=== PATIENT | female | born 1960 | race Caucasian/White ===

== ENCOUNTER → 2017-09-03 10:07 | Outpatient (CLI) | payer OTHER, SELFPAY ==
[2017-09-03 10:54] LABS: Hematocrit 36.2 % (36-46); Hemoglobin 12.4 g/dL (12.0-16.0); Mean Corpuscular HGB Conc 34.3 % (30-36); Mean Corpuscular Hemoglobin 30.3 PG (26-34); Mean Corpuscular Volume 88.4 fL (80-100); Platelet Count 337 X10^3/uL (150-400); Red Blood Cell Count 4.09 X10^6/uL (4.0-5.2); Red Cell Distribution Width 12.5 % (11.6-14.8); White Blood Cell Count 5.2 X10^3/uL (4.5-11.0)
[2017-09-03 10:58] LABS: Alanine Aminotransferase 22 IU/L (9-52); Albumin 4.2 g/dL (3.5-5.0); Albumin Globulin Ratio 1.8 (1.0-2.8); Alkaline Phosphatase 47 U/L (38-126); Aspartate Aminotransferase 20 IU/L (14-36); BUN Creatinine Ratio 25.6 (6-22); Bilirubin Total 0.5 mg/dL (0.2-1.3); Blood Urea Nitrogen 23 mg/dL (7-17); Carbon Dioxide 32 mmol/L (22-32); Chloride 100 mmol/L (98-107); Estimated Glomerular Filt Rate > 60.0 mL/min (>60); Globulin 2.3 g/dL (1.7-4.1); Glucose 134 mg/dL (70-100); HEMOLYSIS < 15 (0-50); Potassium 4.3 mmol/L (3.4-5.1); Sodium 142 mmol/L (137-145); Total Protein 6.5 g/dL (6.3-8.2)
[2017-09-06 12:16] LABS: Tacrolimus 6.9 mcg/L (5.0-20.0)
[2017-09-07 12:48] LABS: Albumin 80 %; Protein/ Creatinine Ratio 1333 mg/g creat (21-161); Total Urine Protein 102 mg/dL (5-24); Urine Creatinine, Random 77 mg/dL (20-320)
== END ==
PROVIDERS: PCP Family Medicine; Visit Provider Student in an Organized Health Care Education/Training Program
DX: R80.9 Proteinuria, unspecified (principal); D50.0 Iron deficiency anemia secondary to blood loss (chronic); N05.9 Unspecified nephritic syndrome with unspecified morphologic changes; D70.9 Neutropenia, unspecified; D63.1 Anemia in chronic kidney disease
CPT/HCPCS: 36415; 80053; 80197; 84156; 84166; 85027

== ENCOUNTER 2017-09-05 16:45 | Outpatient (RCR) | payer OTHER, SELFPAY ==
--- NOTE | 2017-07-13 18:15 | PT.OIE ---
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) Provider Visit Care Team Role Provider Type Mac Cason MD Primary Care Provider Physician Specialty: Family Practice Address: [address] [place] [address], [id number] Email: [email or web address] Pilar Ashford MD Attending Provider Physician Specialty: Physical Medicine and Rehab Address: [address] [place] [address], [id number] Email: Physical Therapy Initial Evaluation PT-OP-A Visit Information Start: 07/13/17 17:43 Freq: Status: Active Protocol: Document 07/13/17 16:45 DCW (Rec: 07/13/17 18:15 DCW [id number]) Out-Patient Physical Therapy Visit Information Visit Information Visit Type Initial Evaluation Visit Start Time 16:45 Visit Stop Time 17:35 Total Visit Minutes 50 Visit Number 1 Number of PRISON CLASSIFICATION COUNSELOR Visits 0 Evaluation Information Evaluation Date 07/13/17 PT-OP-B Current Condition Start: 07/13/17 17:43 Freq: Status: Active Protocol: Document 07/13/17 16:45 DCW (Rec: 07/13/17 18:15 DCW [id number]) Current Condition History of Current Condition Onset Date Diagnosed with EDS 2014 Current Complaints Joint hypermobility, weakness History of Current Condition 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 She has chronic pain in nearly all of her joints, however pain is very point-specific to the joint, and she rarely experiences muscle pain. Pain severity depends entirely on the location, duration, and cause of her current pain. Pt reports her normal daily activity level is 7,000 steps (per her Fitbit). If she really pushes it, she'll get to 10,000, but if she gets up as high as 12,000 steps, she is down for the next three days. Pt previously has participated in water walking, which normally feels pretty good, but if she does any actual swimming, she generally feels worse. Pt notes that as she ages, she has noticed a decline in her overall strength, and was referred to skilled therapy to establish a program for cardio fitness and general condition. Treatment Goals Patient/Caregiver Goals I know there is not much we can do about it, but I want to build strength, as much as I can, safely. Current Functional Impairments (Reported) Functional Limitations- Recreation/ Limited to ~2 miles ambulation Hobbies Struggles with uphill biking ( mild grade) secondary to intense burning in her knees PT-OP-C Subjective Start: 07/13/17 17:43 Freq: Status: Active Protocol: Document 07/13/17 16:45 DCW (Rec: 07/13/17 18:15 DCW [id number]) OP-PT Pain Assessment Pain Assessment Grid Paper Pain Assessment Grid Completed Yes: 20 separate locations - see chart PT-OP-K Range of Motion Start: 07/13/17 17:43 Freq: Status: Active Protocol: Document 07/13/17 16:45 DCW (Rec: 07/13/17 18:15 DCW [id number]) Cervical Spine Range of Motion Cervical Spine Active Percentage Testing Position Sitting Rotation Left 50 Lateral Flexion Right 50 Comments All other ROM throughout body displays significant hypermobility PT-OP-M Strength Start: 07/13/17 17:43 Freq: Status: Active Protocol: Document 07/13/17 16:45 DCW (Rec: 07/13/17 18:15 DCW [id number]) Trunk Strength Trunk Manual Muscle Testing Core Stabilization 4/5, Able to hold double straight leg raise, minimal back arch, mild complaint of pain Shoulder Strength Shoulder Manual Muscle Testing Right Flexion 4 Good Extension 4 Good Abduction (C5) 4 Good External Rotation 4 Good Internal Rotation 4 Good Left Flexion 4 Good Extension 4 Good Abduction (C5) 4 Good External Rotation 4 Good Internal Rotation 4 Good Elbow/Forearm Strength Elbow and Forearm Manual Muscle Testing Right Flexion (C6) 4+ Good+ Extension (C7) 4+ Good+ Left Flexion (C6) 4+ Good+ Extension (C7) 4+ Good+ Hip Strength Hip Manual Muscle Testing Right Flexion (L2) 4+ Good+ Abduction 4+ Good+ Adduction 4+ Good+ External Rotation 4+ Good+ Internal Rotation 4+ Good+ Comments Double leg on Shuttle = 62#, mild knee pain Single leg on Shuttle = 37#, mild knee pain Left Flexion (L2) 4+ Good+ Abduction 4+ Good+ Adduction 4+ Good+ External Rotation 4+ Good+ Internal Rotation 4+ Good+ Comments Double leg on Shuttle = 62#, mild knee pain Single leg on Shuttle = 37#, moderate knee pain Knee Strength Knee Manual Muscle Testing Right Flexion (S2) 4+ Good+ Extension (L3) 4+ Good+ Left Flexion (S2) 4+ Good+ Extension (L3) 4+ Good+ PT-OP-T Assessment and Plan Start: 07/13/17 17:43 Freq: Status: Active Protocol: Document 07/13/17 16:45 DCW (Rec: 07/13/17 18:15 DCW [id number]) Physical Therapy Assessment Rehab Potential Rehabilitation Potential Fair Evaluation Complexity Number of Personal Factors/Comorbidities 3 or More Number of Body Systems Impaired 4 or More Clinical Presentation at Evaluation Unstable Impairments Impairments Activity Tolerance Balance Pain ROM Soft Tissue Mobility Strength Tone Goals Three Impairment Strength Short Term Goal (STG) Pt gross LE MMT to 5/5 STG Duration 08/03/17 Longterm Goal (LTG) Pt gross UE MMT to 5/5 LTG Duration 08/24/17 Two Impairment HEP Short Term Goal (STG) Pt to have an appropriate land -based HEP and perform it at least 80% of the recommended time STG Duration 08/03/17 Fish Packer Goal (LTG) Pt to have an appropriate aquatic-based HEP LTG Duration 08/24/17 One Impairment Activity Limitations Longterm Goal (LTG) Pt to report return to biking three miles with no impact on her the following day LTG Duration 08/24/17 Assessment Summary Assessment Pt presents with significant joint hypermobility. Pt should benefit from a combination of land and aquatic-based therapy focusing on improving activity tolerance, implementing a progressive strengthening program, and education on joint protection to limit hyperextension. Physical Therapy Plan Frequency and Duration Frequency of Treatment 2x/Week Duration of Treatment 10 weeks Plan of Care Start Date 07/13/17 Plan of Care End Date 09/21/17 Therapeutic Interventions Therapeutic Interventions Aquatic Therapy Balance Training Home Exercise Program Joint Mobilizations Manual Therapy Orthotic/Prosthetic Management Patient/Caregiver Education Self-Care/Home Management Soft Tissue Mobilization Taping Therapeutic Exercises Next Visit Focus/Plan Next Note Type Treatment Note Next Visit Plan Gentle strengthening, increased activity tolerance, joint protection Please Sign and Return: I have reviewed this Plan of Care and certify that the skilled therapy services above are required to meet the patient?s needs. Physician Signature Date Printed Name and Credentials Clinical Instructor Signature Printed Name and Credentials
--- NOTE | 2017-07-13 18:18 | PT.OPPOC ---
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) Provider Visit Care Team Role Provider Type Mac Cason MD Primary Care Provider Physician Specialty: Family Practice Address: [address] [place] [address], [phone] Email: [email or web address] Pilar Ashford MD Attending Provider Physician Specialty: Physical Medicine and Rehab Address: [address] [place] [address], [id number] Email: Plan Of Care PT-OP-T Assessment and Plan Start: 07/13/17 17:43 Freq: Status: Active Protocol: Document 07/13/17 16:45 DCW (Rec: 07/13/17 18:15 DCW [id number]) Physical Therapy Assessment Rehab Potential Rehabilitation Potential Fair Evaluation Complexity Number of Personal Factors/Comorbidities 3 or More Number of Body Systems Impaired 4 or More Clinical Presentation at Evaluation Unstable Impairments Impairments Activity Tolerance Balance Pain ROM Soft Tissue Mobility Strength Tone Goals Three Impairment Strength Short Term Goal (STG) Pt gross LE MMT to 5/5 STG Duration 08/03/17 Pipe Layer Helper Goal (LTG) Pt gross UE MMT to 5/5 LTG Duration 08/24/17 Two Impairment HEP Short Term Goal (STG) Pt to have an appropriate land -based HEP and perform it at least 80% of the recommended time STG Duration 08/03/17 Pipe Layer Helper Goal (LTG) Pt to have an appropriate aquatic-based HEP LTG Duration 08/24/17 One Impairment Activity Limitations Fdc Goal (LTG) Pt to report return to biking three miles with no impact on her the following day LTG Duration 08/24/17 Assessment Summary Assessment Pt presents with significant joint hypermobility. Pt should benefit from a combination of land and aquatic-based therapy focusing on improving activity tolerance, implementing a progressive strengthening program, and education on joint protection to limit hyperextension. Physical Therapy Plan Frequency and Duration Frequency of Treatment 2x/Week Duration of Treatment 10 weeks Plan of Care Start Date 07/13/17 Plan of Care End Date 09/21/17 Therapeutic Interventions Therapeutic Interventions Aquatic Therapy Balance Training Home Exercise Program Joint Mobilizations Manual Therapy Orthotic/Prosthetic Management Patient/Caregiver Education Self-Care/Home Management Soft Tissue Mobilization Taping Therapeutic Exercises Next Visit Focus/Plan Next Note Type Treatment Note Next Visit Plan Gentle strengthening, increased activity tolerance, joint protection Plan of Care Dates Plan of Care Start Date 07/13/17 Plan of Care End Date 09/21/17 Please Sign and Return: I have reviewed this Plan of Care and certify that the skilled therapy services above are required to meet the patient?s needs. Physician Signature Date Printed Name and Credentials Clinical Instructor Signature Printed Name and Credentials
--- NOTE | 2017-08-29 17:49 | PT.OTN ---
Current Diagnoses Catherine-Danlos syndrome (08/29/17) Physical Therapy Treatment Note PT-OP-A Visit Information Start: 07/13/17 17:43 Freq: Status: Active Protocol: Document 08/29/17 16:45 DCW (Rec: 08/29/17 17:48 DCW [id number]) Out-Patient Physical Therapy Visit Information Visit Information Visit Type Treatment Note Visit Start Time 16:45 Visit Stop Time 17:35 Total Visit Minutes 50 Visit Number 2 Number of FURNITURE REPRODUCER Visits 0 Evaluation Information Evaluation Date 07/13/17 PT-OP-B Current Condition Start: 07/13/17 17:43 Freq: Status: Active Protocol: Document 07/13/17 16:45 DCW (Rec: 07/13/17 18:15 DCW [id number]) Current Condition History of Current Condition Onset Date Diagnosed with EDS 2014 Current Complaints Joint hypermobility, weakness History of Current Condition 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 She has chronic pain in nearly all of her joints, however pain is very point-specific to the joint, and she rarely experiences muscle pain. Pain severity depends entirely on the location, duration, and cause of her current pain. Pt reports her normal daily activity level is 7,000 steps (per her Fitbit). If she really pushes it, she'll get to 10,000, but if she gets up as high as 12,000 steps, she is down for the next three days. Pt previously has participated in water walking, which normally feels pretty good, but if she does any actual swimming, she generally feels worse. Pt notes that as she ages, she has noticed a decline in her overall strength, and was referred to skilled therapy to establish a program for cardio fitness and general condition. Treatment Goals Patient/Caregiver Goals I know there is not much we can do about it, but I want to build strength, as much as I can, safely. Current Functional Impairments (Reported) Functional Limitations- Recreation/ Limited to ~2 miles ambulation Hobbies Struggles with uphill biking ( mild grade) secondary to intense burning in her knees PT-OP-C Subjective Start: 07/13/17 17:43 Freq: Status: Active Protocol: Document 08/29/17 16:45 DCW (Rec: 08/29/17 17:48 DCW [id number]) OP-PT Subjective Patient Comments Patient Comments Pt reports that overall, she is feeling pretty good today, enjoyed her 5 week trip on her boat. PT-OP-K Range of Motion Start: 07/13/17 17:43 Freq: Status: Active Protocol: Document 07/13/17 16:45 DCW (Rec: 07/13/17 18:15 DCW [id number]) Cervical Spine Range of Motion Cervical Spine Active Percentage Testing Position Sitting Rotation Left 50 Lateral Flexion Right 50 Comments All other ROM throughout body displays significant hypermobility PT-OP-M Strength Start: 07/13/17 17:43 Freq: Status: Active Protocol: Document 07/13/17 16:45 DCW (Rec: 07/13/17 18:15 DCW [id number]) Trunk Strength Trunk Manual Muscle Testing Core Stabilization 4/5, Able to hold double straight leg raise, minimal back arch, mild complaint of pain Shoulder Strength Shoulder Manual Muscle Testing Right Flexion 4 Good Extension 4 Good Abduction (C5) 4 Good External Rotation 4 Good Internal Rotation 4 Good Left Flexion 4 Good Extension 4 Good Abduction (C5) 4 Good External Rotation 4 Good Internal Rotation 4 Good Elbow/Forearm Strength Elbow and Forearm Manual Muscle Testing Right Flexion (C6) 4+ Good+ Extension (C7) 4+ Good+ Left Flexion (C6) 4+ Good+ Extension (C7) 4+ Good+ Hip Strength Hip Manual Muscle Testing Right Flexion (L2) 4+ Good+ Abduction 4+ Good+ Adduction 4+ Good+ External Rotation 4+ Good+ Internal Rotation 4+ Good+ Comments Double leg on Shuttle = 62#, mild knee pain Single leg on Shuttle = 37#, mild knee pain Left Flexion (L2) 4+ Good+ Abduction 4+ Good+ Adduction 4+ Good+ External Rotation 4+ Good+ Internal Rotation 4+ Good+ Comments Double leg on Shuttle = 62#, mild knee pain Single leg on Shuttle = 37#, moderate knee pain Knee Strength Knee Manual Muscle Testing Right Flexion (S2) 4+ Good+ Extension (L3) 4+ Good+ Left Flexion (S2) 4+ Good+ Extension (L3) 4+ Good+ PT-OP-Q Treatments Start: 07/13/17 17:43 Freq: Status: Active Protocol: Document 08/29/17 16:45 DCW (Rec: 08/29/17 17:48 DCW [id number]) Therapeutic Exercises Standing Exercises 3 Standing Exercise Name UE PNF Chop/Lift Side bilateral Resistance Lv 3 Equipment Used T-band 2 Standing Exercise Name UE PNF D2 Flexion/Extension Side bilateral Resistance Lv 3 Equipment Used T-band 1 Standing Exercise Name UE PNF D1 Flexion/Extension Side bilateral Resistance Lv 3 Equipment Used T-band Self-Care/Home Management Treatment Education Patient Education Body Mechanics Home Exercise Program Joint Protection Posture Safety PT-OP-T Assessment and Plan Start: 07/13/17 17:43 Freq: Status: Active Protocol: Document 08/29/17 16:45 DCW (Rec: 08/29/17 17:48 NVW [id number]) Physical Therapy Assessment Impairments Impairments Activity Tolerance Balance Pain ROM Soft Tissue Mobility Strength Tone Goals Three Impairment Strength Short Term Goal (STG) Pt gross LE MMT to 5/5 STG Duration 08/03/17 Penitentiary Goal (LTG) Pt gross UE MMT to 5/5 LTG Duration 08/24/17 Two Impairment HEP Short Term Goal (STG) Pt to have an appropriate land -based HEP and perform it at least 80% of the recommended time STG Duration 08/03/17 Penitentiary Goal (LTG) Pt to have an appropriate aquatic-based HEP LTG Duration 08/24/17 One Impairment Activity Limitations Penitentiary Goal (LTG) Pt to report return to biking three miles with no impact on her the following day LTG Duration 08/24/17 Assessment Summary Assessment Following a long hiatus from therapy due to a boat trip, pt returns to therapy today. Pt reports she would mainly like to obtain a good HEP that she could do independently, especially on her boat. Physical Therapy Plan Frequency and Duration Frequency of Treatment 2x/Week Duration of Treatment 10 weeks Plan of Care Start Date 07/13/17 Plan of Care End Date 09/21/17 Therapeutic Interventions Therapeutic Interventions Aquatic Therapy Balance Training Home Exercise Program Joint Mobilizations Manual Therapy Orthotic/Prosthetic Management Patient/Caregiver Education Self-Care/Home Management Soft Tissue Mobilization Taping Therapeutic Exercises Next Visit Focus/Plan Next Note Type Treatment Note Next Visit Plan Gentle strengthening, increased activity tolerance, joint protection, strengthening, HEP
--- NOTE | 2017-09-05 17:33 | PT.OTN ---
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) Physical Therapy Treatment Note PT-OP-A Visit Information Start: 07/13/17 17:43 Freq: Status: Active Protocol: Document 09/05/17 16:45 DCW (Rec: 09/05/17 17:33 DCW [id number]) Out-Patient Physical Therapy Visit Information Visit Information Visit Type Treatment Note Visit Start Time 16:45 Visit Stop Time 17:35 Total Visit Minutes 50 Visit Number 3 Number of OPTICAL LAB TECHNICIAN Visits 0 Evaluation Information Evaluation Date 07/13/17 PT-OP-B Current Condition Start: 07/13/17 17:43 Freq: Status: Active Protocol: Document 07/13/17 16:45 DCW (Rec: 07/13/17 18:15 DCW [id number]) Current Condition History of Current Condition Onset Date Diagnosed with EDS 2014 Current Complaints Joint hypermobility, weakness History of Current Condition 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 She has chronic pain in nearly all of her joints, however pain is very point-specific to the joint, and she rarely experiences muscle pain. Pain severity depends entirely on the location, duration, and cause of her current pain. Pt reports her normal daily activity level is 7,000 steps (per her Fitbit). If she really pushes it, she'll get to 10,000, but if she gets up as high as 12,000 steps, she is down for the next three days. Pt previously has participated in water walking, which normally feels pretty good, but if she does any actual swimming, she generally feels worse. Pt notes that as she ages, she has noticed a decline in her overall strength, and was referred to skilled therapy to establish a program for cardio fitness and general condition. Treatment Goals Patient/Caregiver Goals I know there is not much we can do about it, but I want to build strength, as much as I can, safely. Current Functional Impairments (Reported) Functional Limitations- Recreation/ Limited to ~2 miles ambulation Hobbies Struggles with uphill biking ( mild grade) secondary to intense burning in her knees PT-OP-C Subjective Start: 07/13/17 17:43 Freq: Status: Active Protocol: Document 09/05/17 16:45 DCW (Rec: 09/05/17 17:33 DCW [id number]) OP-PT Subjective Patient Comments Patient Comments Pt has been working on her HEP , and has been exploring [employer] on her own to create a yoga program PT-OP-K Range of Motion Start: 07/13/17 17:43 Freq: Status: Active Protocol: Document 07/13/17 16:45 DCW (Rec: 07/13/17 18:15 DCW [id number]) Cervical Spine Range of Motion Cervical Spine Active Percentage Testing Position Sitting Rotation Left 50 Lateral Flexion Right 50 Comments All other ROM throughout body displays significant hypermobility PT-OP-M Strength Start: 07/13/17 17:43 Freq: Status: Active Protocol: Document 07/13/17 16:45 DCW (Rec: 07/13/17 18:15 DCW [id number]) Trunk Strength Trunk Manual Muscle Testing Core Stabilization 4/5, Able to hold double straight leg raise, minimal back arch, mild complaint of pain Shoulder Strength Shoulder Manual Muscle Testing Right Flexion 4 Good Extension 4 Good Abduction (C5) 4 Good External Rotation 4 Good Internal Rotation 4 Good Left Flexion 4 Good Extension 4 Good Abduction (C5) 4 Good External Rotation 4 Good Internal Rotation 4 Good Elbow/Forearm Strength Elbow and Forearm Manual Muscle Testing Right Flexion (C6) 4+ Good+ Extension (C7) 4+ Good+ Left Flexion (C6) 4+ Good+ Extension (C7) 4+ Good+ Hip Strength Hip Manual Muscle Testing Right Flexion (L2) 4+ Good+ Abduction 4+ Good+ Adduction 4+ Good+ External Rotation 4+ Good+ Internal Rotation 4+ Good+ Comments Double leg on Shuttle = 62#, mild knee pain Single leg on Shuttle = 37#, mild knee pain Left Flexion (L2) 4+ Good+ Abduction 4+ Good+ Adduction 4+ Good+ External Rotation 4+ Good+ Internal Rotation 4+ Good+ Comments Double leg on Shuttle = 62#, mild knee pain Single leg on Shuttle = 37#, moderate knee pain Knee Strength Knee Manual Muscle Testing Right Flexion (S2) 4+ Good+ Extension (L3) 4+ Good+ Left Flexion (S2) 4+ Good+ Extension (L3) 4+ Good+ PT-OP-Q Treatments Start: 07/13/17 17:43 Freq: Status: Active Protocol: Document 09/05/17 16:45 DCW (Rec: 09/05/17 17:33 DCW [id number]) Therapeutic Exercises Supine Exercises 2 Supine Exercise Name Supine Horizontal Adduction Side bilateral Resistance 3# 1 Supine Exercise Name Supine Punch Side bilateral Resistance 3# Sidelying Exercises 2 Sidelying Exercise Name Abduction Side bilateral Resistance 3# 1 Sidelying Exercise Name External Rotation Side bilateral Resistance 3# Other Exercises 2 Other Exercise Name LE resisted side-stepping along rail Side bilateral Resistance Lv 1 Equipment Used T-band 1 Other Exercise Name UE side-stepping along wall Side bilateral Resistance Lv 1 Equipment Used T-band Self-Care/Home Management Treatment Education Patient Education Body Mechanics Home Exercise Program Joint Protection Posture Safety PT-OP-T Assessment and Plan Start: 07/13/17 17:43 Freq: Status: Active Protocol: Document 09/05/17 16:45 DCW (Rec: 09/05/17 17:33 DCW [id number]) Physical Therapy Assessment Impairments Impairments Activity Tolerance Balance Pain ROM Soft Tissue Mobility Strength Tone Goals Three Impairment Strength Short Term Goal (STG) Pt gross LE MMT to 5/5 STG Duration 08/03/17 Jail Goal (LTG) Pt gross UE MMT to 5/5 LTG Duration 08/24/17 Two Impairment HEP Short Term Goal (STG) Pt to have an appropriate land -based HEP and perform it at least 80% of the recommended time STG Duration 08/03/17 Jail Goal (LTG) Pt to have an appropriate aquatic-based HEP LTG Duration 08/24/17 One Impairment Activity Limitations Jail Goal (LTG) Pt to report return to biking three miles with no impact on her the following day LTG Duration 08/24/17 Assessment Summary Assessment Pt doing well with current HEP , interested for more exercises to perform during upcoming boat trip. Physical Therapy Plan Frequency and Duration Frequency of Treatment 2x/Week Duration of Treatment 10 weeks Plan of Care Start Date 07/13/17 Plan of Care End Date 09/21/17 Therapeutic Interventions Therapeutic Interventions Aquatic Therapy Balance Training Home Exercise Program Joint Mobilizations Manual Therapy Orthotic/Prosthetic Management Patient/Caregiver Education Self-Care/Home Management Soft Tissue Mobilization Taping Therapeutic Exercises Next Visit Focus/Plan Next Note Type Treatment Note Next Visit Plan Gentle strengthening, increased activity tolerance, joint protection, strengthening, HEP
--- NOTE | 2017-11-14 11:31 | PT.OPDS ---
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) Provider Visit Care Team Role Provider Type Mac Cason MD Primary Care Provider Physician Specialty: Family Practice Address: [address] [place], [address] Email: [email or web address] Pilar Ashford MD Attending Provider Physician Specialty: Physical Medicine and Rehab Address: [address] [place] [address], [phone] Email: Visit Number Visit Number 3 Discharge Summary PT-OP-B Current Condition Start: 07/13/17 17:43 Freq: Status: Active Protocol: Document 07/13/17 16:45 DCW (Rec: 07/13/17 18:15 DCW [id number]) Current Condition History of Current Condition Onset Date Diagnosed with EDS 2014 Current Complaints Joint hypermobility, weakness History of Current Condition 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 She has chronic pain in nearly all of her joints, however pain is very point-specific to the joint, and she rarely experiences muscle pain. Pain severity depends entirely on the location, duration, and cause of her current pain. Pt reports her normal daily activity level is 7,000 steps (per her Fitbit). If she really pushes it, she'll get to 10,000, but if she gets up as high as 12,000 steps, she is down for the next three days. Pt previously has participated in water walking, which normally feels pretty good, but if she does any actual swimming, she generally feels worse. Pt notes that as she ages, she has noticed a decline in her overall strength, and was referred to skilled therapy to establish a program for cardio fitness and general condition. Treatment Goals Patient/Caregiver Goals I know there is not much we can do about it, but I want to build strength, as much as I can, safely. Current Functional Impairments (Reported) Functional Limitations- Recreation/ Limited to ~2 miles ambulation Hobbies Struggles with uphill biking ( mild grade) secondary to intense burning in her knees PT-OP-C Subjective Start: 07/13/17 17:43 Freq: Status: Active Protocol: Document 09/05/17 16:45 DCW (Rec: 09/05/17 17:33 DCW [id number]) OP-PT Subjective Patient Comments Patient Comments Pt has been working on her HEP , and has been exploring [employer] on her own to create a yoga program PT-OP-K Range of Motion Start: 07/13/17 17:43 Freq: Status: Active Protocol: Document 07/13/17 16:45 DCW (Rec: 07/13/17 18:15 DCW [id number]) Cervical Spine Range of Motion Cervical Spine Active Percentage Testing Position Sitting Rotation Left 50 Lateral Flexion Right 50 Comments All other ROM throughout body displays significant hypermobility PT-OP-M Strength Start: 07/13/17 17:43 Freq: Status: Active Protocol: Document 07/13/17 16:45 DCW (Rec: 07/13/17 18:15 DCW [id number]) Trunk Strength Trunk Manual Muscle Testing Core Stabilization 4/5, Able to hold double straight leg raise, minimal back arch, mild complaint of pain Shoulder Strength Shoulder Manual Muscle Testing Right Flexion 4 Good Extension 4 Good Abduction (C5) 4 Good External Rotation 4 Good Internal Rotation 4 Good Left Flexion 4 Good Extension 4 Good Abduction (C5) 4 Good External Rotation 4 Good Internal Rotation 4 Good Elbow/Forearm Strength Elbow and Forearm Manual Muscle Testing Right Flexion (C6) 4+ Good+ Extension (C7) 4+ Good+ Left Flexion (C6) 4+ Good+ Extension (C7) 4+ Good+ Hip Strength Hip Manual Muscle Testing Right Flexion (L2) 4+ Good+ Abduction 4+ Good+ Adduction 4+ Good+ External Rotation 4+ Good+ Internal Rotation 4+ Good+ Comments Double leg on Shuttle = 62#, mild knee pain Single leg on Shuttle = 37#, mild knee pain Left Flexion (L2) 4+ Good+ Abduction 4+ Good+ Adduction 4+ Good+ External Rotation 4+ Good+ Internal Rotation 4+ Good+ Comments Double leg on Shuttle = 62#, mild knee pain Single leg on Shuttle = 37#, moderate knee pain Knee Strength Knee Manual Muscle Testing Right Flexion (S2) 4+ Good+ Extension (L3) 4+ Good+ Left Flexion (S2) 4+ Good+ Extension (L3) 4+ Good+ PT-OP-T Assessment and Plan Start: 07/13/17 17:43 Freq: Status: Active Protocol: Document 11/14/17 11:29 DCW (Rec: 11/14/17 11:31 DCW [id number]) Physical Therapy Assessment Goals Three Impairment Strength Short Term Goal (STG) Pt gross LE MMT to 5/5 STG Duration 08/03/17 Prison Goal (LTG) Pt gross UE MMT to 5/ LTG Duration 08/24/17 Two Impairment HEP Short Term Goal (STG) Pt to have an appropriate land -based HEP and perform it at least 80% of the recommended time STG Duration 08/03/17 Prison Goal (LTG) Pt to have an appropriate aquatic-based HEP LTG Duration 08/24/17 One Impairment Activity Limitations Prison Goal (LTG) Pt to report return to biking three miles with no impact on her the following day LTG Duration 08/24/17 Physical Therapy Plan Discharge Physical Therapy Discharge Reasons No Longer Attending PT Discharge Comments Pt was last seen more than two months ago, and reported that she was leaving on aboat trip for a few weeks. Pt has not returned for any further skilled therapy, and does not have any future appointments schaduled. Pt will be discharged at this time.
== END 2017-11-18 11:11 ==
LOC: PHYS 16:45
PROVIDERS: PCP Family Medicine; Visit Provider Physical Medicine & Rehabilitation
DX: Q79.6 Ehlers-Danlos syndromes (principal)
CPT/HCPCS: 97110; 97163; 97535

== ENCOUNTER → 2017-10-28 09:54 | Outpatient (CLI) | payer OTHER, SELFPAY ==
[2017-10-28 10:47] LABS: Mean Corpuscular HGB Conc 34.3 % (30-36); Mean Corpuscular Hemoglobin 30.4 PG (26-34); Mean Corpuscular Volume 88.5 fL (80-100); Platelet Count 362 X10^3/uL (150-400); Red Blood Cell Count 4.29 X10^6/uL (4.0-5.2); Red Cell Distribution Width 12.7 % (11.6-14.8); White Blood Cell Count 4.7 X10^3/uL (4.5-11.0)
[2017-10-28 11:20] LABS: Alanine Aminotransferase 27 IU/L (9-52); Albumin 4.4 g/dL (3.5-5.0); Albumin Globulin Ratio 1.9 (1.0-2.8); Alkaline Phosphatase 50 U/L (38-126); Aspartate Aminotransferase 20 IU/L (14-36); Bilirubin Total 0.5 mg/dL (0.2-1.3); Blood Urea Nitrogen 18 mg/dL (7-17); Calcium 9.8 mg/dL (8.4-10.2); Carbon Dioxide 30 mmol/L (22-32); Chloride 102 mmol/L (98-107); Estimated Glomerular Filt Rate > 60.0 mL/min (>60); Globulin 2.3 g/dL (1.7-4.1); Glucose 140 mg/dL (70-100); HEMOLYSIS < 15 (0-50); Potassium 4.4 mmol/L (3.4-5.1); Sodium 144 mmol/L (137-145); Total Protein 6.7 g/dL (6.3-8.2)
[2017-10-28 17:27] LABS: Creatinine Urine Random 120.8 mg/dL; Protein (Total) Urine Random 65 mg/dL (0-12); Protein Creatinine Ratio Urine 0.53 GRAM/24H
[2017-10-31 09:06] LABS: Tacrolimus 5.9 mcg/L (5.0-20.0)
== END ==
PROVIDERS: Visit Provider Student in an Organized Health Care Education/Training Program
DX: D70.9 Neutropenia, unspecified (principal); D63.1 Anemia in chronic kidney disease; T86.10 Unspecified complication of kidney transplant; R80.9 Proteinuria, unspecified
CPT/HCPCS: 36415; 80053; 80197; 82570; 84156; 85027

== ENCOUNTER → 2018-01-18 14:24 | Outpatient (CLI) | payer OTHER, SELFPAY ==
[2018-01-21 15:49] LABS: Fecal Immunochemical Test NOT DETECTED
== END ==
PROVIDERS: PCP Student in an Organized Health Care Education/Training Program; Visit Provider Student in an Organized Health Care Education/Training Program
DX: Z12.11 Encounter for screening for malignant neoplasm of colon (principal)
CPT/HCPCS: 82274

== ENCOUNTER → 2018-01-21 10:04 | Outpatient (CLI) | payer OTHER, SELFPAY ==
[2018-01-21 11:09] LABS: Hematocrit 35.8 % (36-46); Hemoglobin 12.4 g/dL (12.0-16.0); Mean Corpuscular HGB Conc 34.7 % (30-36); Mean Corpuscular Hemoglobin 30.2 PG (26-34); Mean Corpuscular Volume 87.3 fL (80-100); Platelet Count 359 X10^3/uL (150-400); Red Cell Distribution Width 12.4 % (11.6-14.8); White Blood Cell Count 5.6 X10^3/uL (4.5-11.0)
[2018-01-21 11:27] LABS: Alanine Aminotransferase 22 IU/L (9-52); Albumin 4.5 g/dL (3.5-5.0); Albumin Globulin Ratio 1.8 (1.0-2.8); Alkaline Phosphatase 55 U/L (38-126); Aspartate Aminotransferase 22 IU/L (14-36); Bilirubin Total 0.4 mg/dL (0.2-1.3); Blood Urea Nitrogen 25 mg/dL (7-17); Calcium 9.7 mg/dL (8.4-10.2); Carbon Dioxide 28 mmol/L (22-32); Chloride 101 mmol/L (98-107); Estimated Glomerular Filt Rate 56.7 mL/min (>60); Globulin 2.5 g/dL (1.7-4.1); Glucose 101 mg/dL (70-100); HEMOLYSIS < 15 (0-50); Potassium 4.1 mmol/L (3.4-5.1); Sodium 141 mmol/L (137-145)
[2018-01-21 11:43] LABS: Creatinine Urine Random 83.3 mg/dL; Protein (Total) Urine Random 8 mg/dL (0-12); Protein Creatinine Ratio Urine 0.09 GRAM/24H
[2018-01-24 08:03] LABS: Tacrolimus 8.6 mcg/L (5.0-20.0)
== END ==
PROVIDERS: PCP Student in an Organized Health Care Education/Training Program; Visit Provider Student in an Organized Health Care Education/Training Program
DX: R80.9 Proteinuria, unspecified (principal)
CPT/HCPCS: 36415; 80053; 80197; 82570; 84156; 85027

== ENCOUNTER → 2018-02-02 13:57 | Outpatient (CLI) | payer OTHER, SELFPAY ==
--- NOTE | 2018-02-02 14:01 | DI.ECHO.S_ITS ---
[facility]---------+ [facility] +---------+ : : [address] : : : : [id number] : : : : Phone: [phone]+ Echocardiogram Report + + :Name: HAKAN JENKINS Study Date: 02/02/2018 Height: 62 in : :[facility] Weight: 150 lb : : Gender: Female BSA: 1.7 m2 : :: 1960 Age: 57 yrs BP: 150/84 mmHg: :Reason For Study: CONSTANTINE-DANLOS SYNDROME : : Performed By: Yandy Ingram : :Referring: KOSTA CONDE : + + Interpretation Summary Normal echo study. Procedure: A two-dimensional transthoracic echocardiogram with color flow and Doppler was performed. The study quality was technically adequate. Most of the acoustic windows were suboptimal, but the best imaging was obtained from the subcostal window. The patient was in normal sinus rhythm during the exam. Left Ventricle: The left ventricle is normal in size, wall thickness, and systolic function without any focal wall motion abnormalities. The ejection fraction is estimated to be 60-65%. Diastolic parameters suggest probable normal left ventricular diastolic function and normal filling pressures. Right Ventricle: The right ventricle grossly appears normal in size with probable normal systolic function. Atria: The left atrial size is normal. Right atrial size is normal. The interatrial septum is intact with no evidence for an atrial septal defect. Mitral Valve: The mitral valve is normal in structure and function. There is trace mitral regurgitation. Aortic Valve: The aortic valve opens well. No aortic regurgitation is present. Tricuspid Valve: The tricuspid valve is normal in structure and function. There is a trace or physiologic amount of tricuspid regurgitation. The right ventricular systolic pressure is estimated to be at least 25 mmHg based on an estimated right atrial pressure of 3 mm Hg. Pulmonic Valve: The pulmonic valve is not well visualized. Great Vessels: The aortic root is normal size. The dimensions of the ascending aorta are normal. The aortic arch is normal in size. The IVC is of normal diameter and collapses greater than 50% with a sniff. This suggests a low right atrial pressure of 3 mm Hg. Pericardium/ Pleura There is no pericardial effusion. There is no pleural effusion. MMode/2D Measurements & Calculations LVIDd: 4.3 cm Ao root diam: 3.2 cm LVIDs: 2.4 cm Aortic Jxn: 2.5 cm FS: 43.7 % asc Aorta Diam: 3.2 cm IVSd: 0.96 cm Ao Arch Diam (Prox Trans): 2.9 cm LVPWd: 0.94 cm LV [place]. diameter/BSA (cm/m^2): 2.6 LV sys. diameter/BSA (cm/m^2): 1.4 LA dimension: 3.1 cm RA long axis: 4.5 cm LA A2 area: 13.5 cm2 RA area: 12.6 cm2 LA A4 area: 12.6 cm2 RA vol: 29.9 ml LA length (vol): 4.2 cm RA : 17.7 ml/m2 LA vol: 34.3 ml IVC diam: 1.1 cm LA vol index: 20.2 ml/m2 Doppler Measurements & Calculations Ao V2 max: 120.7 cm/sec MV E max jarrett: 74.0 cm/sec Ao V2 mean: 84.2 cm/sec MV A max jarrett: 88.1 cm/sec Ao max P.8 mmHg MV E/A: 0.84 Ao mean P.3 mmHg Med Peak E' Jarrett: 7.1 cm/sec Ao V2 VTI: 26.2 cm E/E' med: 10.5 Lat Peak E' Jarrett: 6.3 cm/sec E/E' lat: 11.7 E/e' average: 11.1 MV dec time: 0.22 sec MV P1/2t: 66.1 msec TR max jarrett: 236.4 cm/sec MV P1/2t max jarrett: 74.6 cm/sec TR max P.4 mmHg MVA(P1/2t): 3.3 cm2 Electronically signed by: Kourtney Harley on Reading Physician:02/02/2018 06:49 PM
== END ==
PROVIDERS: PCP Student in an Organized Health Care Education/Training Program; Visit Provider Student in an Organized Health Care Education/Training Program
DX: Q79.6 Ehlers-Danlos syndromes (principal)
CPT/HCPCS: 93306

== ENCOUNTER → 2018-04-13 14:39 | Outpatient (CLI) | payer OTHER, SELFPAY ==
[2018-04-13 15:34] LABS: Hematocrit 36.4 % (36-46); Mean Corpuscular HGB Conc 32.9 % (30-36); Mean Corpuscular Hemoglobin 29.5 PG (26-34); Mean Corpuscular Volume 89.8 fL (80-100); Platelet Count 407 X10^3/uL (150-400); Red Blood Cell Count 4.05 X10^6/uL (4.0-5.2); Red Cell Distribution Width 13.1 % (11.6-14.8); White Blood Cell Count 6.2 X10^3/uL (4.5-11.0)
[2018-04-13 16:08] LABS: Alanine Aminotransferase 29 IU/L (9-52); Albumin 4.5 g/dL (3.5-5.0); Albumin Globulin Ratio 1.6 (1.0-2.8); Alkaline Phosphatase 55 U/L (38-126); Aspartate Aminotransferase 24 IU/L (14-36); BUN Creatinine Ratio 23.3 (6-22); Bilirubin Total 0.3 mg/dL (0.2-1.3); Blood Urea Nitrogen 21 mg/dL (7-17); Calcium 9.3 mg/dL (8.4-10.2); Carbon Dioxide 29 mmol/L (22-32); Chloride 102 mmol/L (98-107); Estimated Glomerular Filt Rate > 60.0 mL/min (>60); Globulin 2.8 g/dL (1.7-4.1); Glucose 104 mg/dL (70-100); HEMOLYSIS < 15 (0-50); Potassium 3.9 mmol/L (3.4-5.1); Sodium 139 mmol/L (137-145); Total Protein 7.3 g/dL (6.3-8.2)
[2018-04-13 18:57] LABS: Creatinine Urine Random 92.4 mg/dL; Protein (Total) Urine Random 53 mg/dL (0-12); Protein Creatinine Ratio Urine 0.57 GRAM/24H
[2018-04-15 16:01] LABS: Parathyroid Hormone Int 50 pg/mL (14-64)
== END ==
PROVIDERS: Family Provider Student in an Organized Health Care Education/Training Program; PCP Student in an Organized Health Care Education/Training Program; Visit Provider Student in an Organized Health Care Education/Training Program
DX: D70.9 Neutropenia, unspecified (principal); D63.1 Anemia in chronic kidney disease; N05.9 Unspecified nephritic syndrome with unspecified morphologic changes; N25.81 Secondary hyperparathyroidism of renal origin; R80.9 Proteinuria, unspecified
CPT/HCPCS: 36415; 80053; 82570; 83970; 84156; 85027

== ENCOUNTER → 2018-04-28 08:35 | Outpatient (CLI) | payer OTHER, SELFPAY ==
[2018-04-28 09:03] LABS: Cholesterol 197 mg/dL (140-199); HDL Cholesterol 52 mg/dL (40-60); LDL Cholesterol Calculated 100 mg/dL (<100); Triglycerides 227 mg/dL (35-150)
== END ==
PROVIDERS: Family Provider Student in an Organized Health Care Education/Training Program; PCP Student in an Organized Health Care Education/Training Program; Visit Provider Student in an Organized Health Care Education/Training Program
DX: E78.5 Hyperlipidemia, unspecified (principal)
CPT/HCPCS: 36415; 80061

== ENCOUNTER → 2018-06-08 10:28 | Outpatient (CLI) | payer OTHER, SELFPAY ==
[2018-06-08 12:00] LABS: Hematocrit 39.1 % (36-46); Hemoglobin 13.2 g/dL (12.0-16.0); Mean Corpuscular HGB Conc 33.7 % (30-36); Mean Corpuscular Hemoglobin 29.7 PG (26-34); Mean Corpuscular Volume 88.2 fL (80-100); Platelet Count 391 X10^3/uL (150-400); Red Blood Cell Count 4.44 X10^6/uL (4.0-5.2); Red Cell Distribution Width 12.7 % (11.6-14.8); White Blood Cell Count 6.1 X10^3/uL (4.5-11.0)
[2018-06-08 12:24] LABS: Alanine Aminotransferase 25 IU/L (9-52); Albumin 4.6 g/dL (3.5-5.0); Albumin Globulin Ratio 1.7 (1.0-2.8); Alkaline Phosphatase 72 U/L (38-126); Aspartate Aminotransferase 27 IU/L (14-36); BUN Creatinine Ratio 31.4 (6-22); Bilirubin Total 0.4 mg/dL (0.2-1.3); Blood Urea Nitrogen 22 mg/dL (7-17); Calcium 9.9 mg/dL (8.4-10.2); Carbon Dioxide 30 mmol/L (22-32); Chloride 100 mmol/L (98-107); Cholesterol 224 mg/dL (140-199); Estimated Glomerular Filt Rate > 60.0 mL/min (>60); Globulin 2.7 g/dL (1.7-4.1); Glucose 107 mg/dL (70-100); HDL Cholesterol 54 mg/dL (40-60); HEMOLYSIS < 15 (0-50); LDL Cholesterol Calculated 112 mg/dL (<100); Potassium 4.3 mmol/L (3.4-5.1); Sodium 140 mmol/L (137-145); Total Protein 7.3 g/dL (6.3-8.2); Triglycerides 289 mg/dL (35-150)
[2018-06-08 12:25] LABS: Creatinine Urine Random 87.4 mg/dL; Protein (Total) Urine Random 52 mg/dL (0-12); Protein Creatinine Ratio Urine 0.59 GRAM/24H
== END ==
PROVIDERS: Family Provider Student in an Organized Health Care Education/Training Program; PCP Student in an Organized Health Care Education/Training Program; Visit Provider Student in an Organized Health Care Education/Training Program
DX: D70.9 Neutropenia, unspecified (principal); D63.1 Anemia in chronic kidney disease; N05.9 Unspecified nephritic syndrome with unspecified morphologic changes; E78.5 Hyperlipidemia, unspecified; R80.9 Proteinuria, unspecified
CPT/HCPCS: 36415; 80053; 80061; 82570; 84156; 85027

== ENCOUNTER → 2018-07-05 11:56 | Outpatient (CLI) | payer OTHER, SELFPAY ==
--- NOTE | 2018-07-05 | DI.MG.S_ITS ---
BILATERAL DIGITAL SCREENING MAMMOGRAM 3D/2D WITH CAD: 07/05/2018 CLINICAL: Routine screening. Comparison is made to exams dated: 04/25/2017 mammogram - [facility], 02/20/2016 mammogram, and 01/24/2014 mammogram - [facility]. The tissue of both breasts is heterogeneously dense. This may lower the sensitivity of mammography. Current study was also evaluated with a Computer Aided Detection (CAD) system. There are benign calcifications in the right breast. No significant masses, calcifications, or other findings are seen in either breast. There has been no significant interval change. IMPRESSION: There is no mammographic evidence of malignancy. A 1 year screening mammogram is recommended. This exam was interpreted at Station ID: [id number]. NOTE: For mammograms, a report in lay terms will be sent to the patient. Approximately 15% of breast malignancies will not be visualized mammographically. In the management of a palpable breast mass, a negative mammogram must not discourage biopsy of a clinically suspicious lesion. Electronically Signed By: Félix moreno/lenora:07/05/2018 13:19:06 letter sent: Normal Exam ACR BI-RADS Category 2: Benign Finding(s) 3342F
== END ==
PROVIDERS: PCP Student in an Organized Health Care Education/Training Program; Visit Provider Student in an Organized Health Care Education/Training Program
DX: Z12.31 Encounter for screening mammogram for malignant neoplasm of breast (principal)
CPT/HCPCS: 77063; 77067

== ENCOUNTER → 2018-10-13 10:11 | Outpatient (CLI) | payer OTHER, SELFPAY ==
[2018-10-13 11:04] LABS: Hematocrit 36.5 % (36-46); Hemoglobin 12.2 g/dL (12.0-16.0)
[2018-10-13 11:21] LABS: BUN Creatinine Ratio 31.4 (6-22); Blood Urea Nitrogen 22 mg/dL (7-17); Calcium 9.5 mg/dL (8.4-10.2); Carbon Dioxide 31 mmol/L (22-32); Chloride 102 mmol/L (98-107); Cholesterol 183 mg/dL (140-199); Estimated Glomerular Filt Rate > 60.0 mL/min (>60); Glucose 103 mg/dL (80-110); HDL Cholesterol 57 mg/dL (40-60); HEMOLYSIS < 15 (0-50); LDL Cholesterol Calculated 88 mg/dL (<100); Potassium 3.9 mmol/L (3.4-5.1); Sodium 139 mmol/L (137-145); Triglycerides 189 mg/dL (35-150)
[2018-10-13 11:35] LABS: Creatinine Urine Random 121.9 mg/dL; Protein (Total) Urine Random 73 mg/dL (0-12); Protein Creatinine Ratio Urine 0.59 GRAM/24H
== END ==
PROVIDERS: PCP Student in an Organized Health Care Education/Training Program; Visit Provider Student in an Organized Health Care Education/Training Program
DX: D64.9 Anemia, unspecified (principal); E78.5 Hyperlipidemia, unspecified; N05.9 Unspecified nephritic syndrome with unspecified morphologic changes; R80.9 Proteinuria, unspecified
CPT/HCPCS: 36415; 80048; 80061; 82570; 84156; 85014; 85018

== ENCOUNTER → 2019-02-27 14:21 | Outpatient (CLI) | payer OTHER, SELFPAY ==
[2019-02-27 17:08] LABS: Creatinine Urine Random 28.4 mg/dL; Protein (Total) Urine Random 61 mg/dL (0-12); Protein Creatinine Ratio Urine 2.14 GRAM/24H
[2019-02-27 17:09] LABS: Alanine Aminotransferase 21 IU/L (<35); Albumin 4.5 g/dL (3.5-5.0); Albumin Globulin Ratio 1.6 (1.0-2.8); Alkaline Phosphatase 64 U/L (38-126); Aspartate Aminotransferase 24 IU/L (14-36); BUN Creatinine Ratio 23.8 (6-22); Bilirubin Total 0.3 mg/dL (0.2-1.3); Blood Urea Nitrogen 19 mg/dL (7-17); Calcium 9.9 mg/dL (8.4-10.2); Carbon Dioxide 30 mmol/L (22-32); Chloride 99 mmol/L (98-107); Estimated Glomerular Filt Rate > 60.0 mL/min (>60); Globulin 2.8 g/dL (1.7-4.1); Glucose 101 mg/dL (80-110); HEMOLYSIS < 15 (0-50); Potassium 4.4 mmol/L (3.4-5.1); Sodium 139 mmol/L (137-145); Total Protein 7.3 g/dL (6.3-8.2)
[2019-02-27 17:29] LABS: TSH w/ Reflex to FT4 2.16 uIU/mL (0.47-4.68)
== END ==
PROVIDERS: PCP Student in an Organized Health Care Education/Training Program; Visit Provider Student in an Organized Health Care Education/Training Program
DX: E03.9 Hypothyroidism, unspecified (principal); I10 Essential (primary) hypertension; N05.2 Unspecified nephritic syndrome with diffuse membranous glomerulonephritis
CPT/HCPCS: 36415; 80053; 82570; 84156; 84443

== ENCOUNTER → 2019-03-06 13:05 | Outpatient (CLI) | payer OTHER, SELFPAY | PROVIDERS: PCP Student in an Organized Health Care Education/Training Program; Visit Provider Obstetrics & Gynecology | DX: Z13.820 Encounter for screening for osteoporosis (principal); Z78.0 Asymptomatic menopausal state; R29.890 Loss of height; Z82.62 Family history of osteoporosis | CPT/HCPCS: 77080 ==

== ENCOUNTER → 2019-03-08 17:01 | Outpatient (CLI) | payer OTHER, SELFPAY ==
[2019-03-08 17:41] LABS: Hematocrit 37.3 % (36-46); Hemoglobin 12.5 g/dL (12.0-16.0)
[2019-03-08 18:23] LABS: Protein (Total) Urine Random 52 mg/dL (0-12); Protein Creatinine Ratio Urine 2.26 GRAM/24H
== END ==
PROVIDERS: PCP Student in an Organized Health Care Education/Training Program; Visit Provider Student in an Organized Health Care Education/Training Program
DX: D64.9 Anemia, unspecified (principal); R80.9 Proteinuria, unspecified
CPT/HCPCS: 36415; 82570; 84156; 85014; 85018

== ENCOUNTER → 2019-06-15 16:58 | Outpatient (CLI) | payer OTHER, SELFPAY ==
[2019-06-15 19:40] LABS: BUN Creatinine Ratio 27.5 (6-22); Blood Urea Nitrogen 22 mg/dL (7-17); Calcium 9.7 mg/dL (8.4-10.2); Carbon Dioxide 31 mmol/L (22-32); Chloride 102 mmol/L (98-107); Creatinine Urine Random 176.9 mg/dL; Estimated Glomerular Filt Rate > 60.0 mL/min (>60); Glucose 127 mg/dL (80-110); HEMOLYSIS < 15 (0-50); Protein (Total) Urine Random 110 mg/dL (0-12); Protein Creatinine Ratio Urine 0.62 GRAM/24H; Sodium 140 mmol/L (137-145)
== END ==
PROVIDERS: PCP Student in an Organized Health Care Education/Training Program; Referring Provider Student in an Organized Health Care Education/Training Program; Visit Provider Student in an Organized Health Care Education/Training Program
DX: N05.9 Unspecified nephritic syndrome with unspecified morphologic changes (principal); R80.9 Proteinuria, unspecified
CPT/HCPCS: 36415; 80048; 82570; 84156

== ENCOUNTER → 2019-11-02 14:05 | Outpatient (CLI) | payer OTHER, SELFPAY ==
[2019-11-02 14:51] LABS: Hematocrit 39.9 % (36-46); Hemoglobin 13.3 g/dL (12.0-16.0)
[2019-11-02 15:10] LABS: Blood Urea Nitrogen 19 mg/dL (7-17); Calcium 9.5 mg/dL (8.4-10.2); Carbon Dioxide 32 mmol/L (22-32); Chloride 100 mmol/L (98-107); Estimated Glomerular Filt Rate > 60.0 mL/min (>60); Glucose 109 mg/dL (80-110); HEMOLYSIS < 15 (0-50); Potassium 4.4 mmol/L (3.4-5.1); Sodium 139 mmol/L (137-145)
[2019-11-02 15:55] LABS: Creatinine Urine Random 19.6 mg/dL; Protein (Total) Urine Random 30 mg/dL (0-12); Protein Creatinine Ratio Urine 1.53 GRAM/24H
== END ==
PROVIDERS: PCP Student in an Organized Health Care Education/Training Program; Referring Provider Student in an Organized Health Care Education/Training Program; Visit Provider Student in an Organized Health Care Education/Training Program
DX: N05.9 Unspecified nephritic syndrome with unspecified morphologic changes (principal); D64.9 Anemia, unspecified; R80.9 Proteinuria, unspecified
CPT/HCPCS: 36415; 80048; 82570; 84156; 85014; 85018

== ENCOUNTER → 2019-12-17 16:35 | Outpatient (CLI) | payer OTHER, SELFPAY ==
--- NOTE | 2019-12-17 16:37 | DI.RAD.S_ITS ---
PROCEDURE: XR HIP W PEL IF DONE LT 2V INDICATIONS: pain TECHNIQUE: AP pelvis with lateral view(s) of the left hip(s). COMPARISON: [facility], , XR HIP W PEL IF DONE BILAT 2V, 06/22/2017, 10:43. FINDINGS: Bones: No fractures or dislocations. Pelvic ring appears intact. No suspicious bony lesions. Moderate joint space narrowing on the left. Acetabular sclerosis. Findings slightly progressed compared to 2018. Soft tissues: Somewhat prominent stool in the colon. No suspicious soft tissue calcifications. IMPRESSION: Moderate left hip DJD. No fracture or dislocation. Dictated by: Clark Chaney M.D. on 12/17/2019 at 17:13 Approved by: Clark Chaney M.D. on 12/17/2019 at 17:15
--- NOTE | 2019-12-17 16:37 | DI.RAD.S_ITS ---
PROCEDURE: XR KNEE LT 3V INDICATIONS: pain TECHNIQUE: 3 views of the knee were acquired. COMPARISON: [facility], CR, XR KNEE STANDING BI, 06/22/2017, 10:43. FINDINGS: Bones: No fractures or dislocations. No suspicious bony lesions. Probable minimal joint space loss in the medial compartment. Soft tissues: No significant joint effusion. No suspicious soft tissue calcifications. IMPRESSION: Probable minimal left knee DJD. If clinically indicated consider further evaluation with MRI of the knee. Dictated by: Clark Chaney M.D. on 12/17/2019 at 17:15 Approved by: Clark Chaney M.D. on 12/17/2019 at 17:18
== END ==
PROVIDERS: PCP Student in an Organized Health Care Education/Training Program; Referring Provider Student in an Organized Health Care Education/Training Program; Visit Provider Student in an Organized Health Care Education/Training Program
DX: M70.72 Other bursitis of hip, left hip (principal); M16.12 Unilateral primary osteoarthritis, left hip; M25.562 Pain in left knee; G89.29 Other chronic pain
CPT/HCPCS: 73502; 73562

== ENCOUNTER → 2020-01-05 11:28 | Outpatient (CLI) | payer OTHER, SELFPAY ==
--- NOTE | 2020-01-05 | DI.MG.S_ITS ---
BILATERAL DIGITAL SCREENING MAMMOGRAM 3D/2D WITH CAD: 01/05/2020 CLINICAL: Routine screening. Comparison is made to exams dated: 07/05/2018 mammogram, 04/25/2017 mammogram - [facility], and 02/20/2016 mammogram - [facility]. The tissue of both breasts is heterogeneously dense. This may lower the sensitivity of mammography. Current study was also evaluated with a Computer Aided Detection (CAD) system. There are benign calcifications in the right breast. No significant masses, calcifications, or other findings are seen in either breast. There has been no significant interval change. IMPRESSION: BENIGN There is no mammographic evidence of malignancy. A 1 year screening mammogram is recommended. This exam was interpreted at Station ID: [id number]. NOTE: For mammograms, a report in lay terms will be sent to the patient. Approximately 15% of breast malignancies will not be visualized mammographically. In the management of a palpable breast mass, a negative mammogram must not discourage biopsy of a clinically suspicious lesion. Electronically Signed By: Lupis levin/lenora:01/07/2020 15:58:48 letter sent: Normal Exam ACR BI-RADS Category 2: Benign Finding(s) 3342F
== END ==
PROVIDERS: PCP Student in an Organized Health Care Education/Training Program; Referring Provider Student in an Organized Health Care Education/Training Program; Visit Provider Student in an Organized Health Care Education/Training Program
DX: Z12.31 Encounter for screening mammogram for malignant neoplasm of breast (principal)
CPT/HCPCS: 77063; 77067

== ENCOUNTER → 2020-01-17 15:31 | Outpatient (CLI) | payer OTHER, SELFPAY ==
[2020-01-17 16:05] LABS: Appearance Urine UA CLOUDY; Bilirubin Urine UA NEGATIVE (NEGATIVE); Color Urine UA YELLOW; Glucose Urine UA NEGATIVE (Negative); Ketones Urine UA NEGATIVE (NEGATIVE); Leukocyte Esterase Urine UA 1+ (NEGATIVE); Nitrite Urine UA NEGATIVE (Negative); Occult Blood Urine UA 3+ (Negative); Protein Urine UA 1+ (Negative); Urobilinogen Urine UA 0.2 E.U./dL (0.2)
[2020-01-17 16:21] LABS: Bacteria Urine Many (>30); Culture Indicated Urine Specimen Cultured; RBC Urine 30-100/HPF (0-5/HPF); Squamous Epithelial Cell Urine 1-5 /HPF (0-5/HPF); WBC Urine 30-100/HPF (0-5/HPF)
== END ==
PROVIDERS: PCP Student in an Organized Health Care Education/Training Program; Referring Provider Student in an Organized Health Care Education/Training Program; Visit Provider Student in an Organized Health Care Education/Training Program
DX: R30.0 Dysuria (principal)
CPT/HCPCS: 81001; 87086

== ENCOUNTER → 2020-01-27 11:36 | Outpatient (CLI) | payer OTHER, SELFPAY | PROVIDERS: PCP Student in an Organized Health Care Education/Training Program; Referring Provider Physician Assistant; Visit Provider Physician Assistant | DX: R30.0 Dysuria (principal); R35.0 Frequency of micturition | CPT/HCPCS: 87077; 87086; 87186 ==

== ENCOUNTER → 2020-04-29 17:05 | Outpatient (CLI) | payer MEDICARE, SELFPAY ==
[2020-04-29] MEDS: COVID-19 VACC #1, MRNA(MOD) 100 MCG/0.5 ML VIAL IM (17:09)
== END ==
PROVIDERS: PCP Student in an Organized Health Care Education/Training Program; Visit Provider Internal Medicine
DX: Z23 Encounter for immunization (principal)
CPT/HCPCS: 0011A; 91301

== ENCOUNTER → 2020-05-28 12:40 | Outpatient (CLI) | payer MEDICARE, SELFPAY ==
[2020-05-28] MEDS: COVID-19 VACC #2, MRNA(MOD) 100 MCG/0.5 ML VIAL IM (12:55)
== END ==
PROVIDERS: PCP Student in an Organized Health Care Education/Training Program; Visit Provider Internal Medicine
DX: Z23 Encounter for immunization (principal)
CPT/HCPCS: 0012A; 91301

== ENCOUNTER → 2020-07-21 16:07 | Outpatient (CLI) | payer OTHER, SELFPAY ==
[2020-07-21 18:08] LABS: Hematocrit 39.1 % (36-46); Hemoglobin 12.5 g/dL (12.0-16.0)
[2020-07-21 18:20] LABS: BUN Creatinine Ratio 29.9 (6-22); Blood Urea Nitrogen 23 mg/dL (7-17); Calcium 9.4 mg/dL (8.4-10.2); Carbon Dioxide 28 mmol/L (22-32); Chloride 102 mmol/L (98-107); Estimated Glomerular Filt Rate > 60.0 mL/min (>60); Glucose 126 mg/dL (80-110); HEMOLYSIS < 15 (0-50); Potassium 3.7 mmol/L (3.4-5.1); Sodium 139 mmol/L (137-145)
[2020-07-21 18:21] LABS: Creatinine Urine Random 52.2 mg/dL; Protein (Total) Urine Random 16 mg/dL (0-12)
== END ==
PROVIDERS: PCP Student in an Organized Health Care Education/Training Program; Referring Provider Student in an Organized Health Care Education/Training Program; Visit Provider Student in an Organized Health Care Education/Training Program
DX: N05.9 Unspecified nephritic syndrome with unspecified morphologic changes (principal); D64.9 Anemia, unspecified; R80.9 Proteinuria, unspecified
CPT/HCPCS: 36415; 80048; 82570; 84156; 85014; 85018

== ENCOUNTER → 2020-07-30 14:59 | Outpatient (CLI) | payer OTHER, SELFPAY ==
[2020-07-30 15:03] LABS: Bacteria Urine None Seen
[2020-07-30 15:34] LABS: Appearance Urine UA CLEAR; Bilirubin Urine UA NEGATIVE (NEGATIVE); Color Urine UA YELLOW; Glucose Urine UA NEGATIVE (Negative); Ketones Urine UA NEGATIVE (NEGATIVE); Leukocyte Esterase Urine UA 2+ (NEGATIVE); Nitrite Urine UA NEGATIVE (Negative); Occult Blood Urine UA 3+ (Negative); Protein Urine UA TRACE (Negative); Specific Gravity Urine UA <=1.005 (1.000-1.035); Urobilinogen Urine UA 0.2 E.U./dL (0.2)
[2020-07-30 15:37] LABS: pH Urine UA 5.5 (4.5-8.0)
[2020-07-30 15:52] LABS: Culture Indicated Urine Specimen Cultured; RBC Urine 0-1/HPF (0-5/HPF); Squamous Epithelial Cell Urine 0-1 /HPF (0-5/HPF); WBC Urine 10-30/HPF (0-5/HPF)
== END ==
PROVIDERS: PCP Student in an Organized Health Care Education/Training Program; Referring Provider Student in an Organized Health Care Education/Training Program; Visit Provider Student in an Organized Health Care Education/Training Program
DX: N30.01 Acute cystitis with hematuria (principal)
CPT/HCPCS: 81001; 87086

== ENCOUNTER → 2020-08-08 11:55 | Outpatient (CLI) | payer OTHER, SELFPAY ==
[2020-08-08 13:12] LABS: Appearance Urine UA Slightly Cloudy; Bilirubin Urine UA Negative (NEGATIVE); Color Urine UA Yellow; Glucose Urine UA NEGATIVE (Negative); Ketones Urine UA NEGATIVE (NEGATIVE); Leukocyte Esterase Urine UA TRACE (NEGATIVE); Nitrite Urine UA NEGATIVE (Negative); Occult Blood Urine UA TRACE-INTACT (Negative); Protein Urine UA Negative (Negative); Urobilinogen Urine UA Normal E.U./dL (0.2)
[2020-08-08 13:13] LABS: Bacteria Urine Occasional (0-1); Culture Indicated Urine Specimen Cultured; RBC Urine 0-1/HPF (0-5/HPF); Squamous Epithelial Cell Urine 1-5 /HPF (0-5/HPF); WBC Urine 0-1/HPF (0-5/HPF)
== END ==
PROVIDERS: PCP Student in an Organized Health Care Education/Training Program; Referring Provider Student in an Organized Health Care Education/Training Program; Visit Provider Student in an Organized Health Care Education/Training Program
DX: N30.01 Acute cystitis with hematuria (principal)
CPT/HCPCS: 81001; 87086

== ENCOUNTER 2020-08-14 13:00 | Outpatient (RCR) | payer OTHER, SELFPAY ==
--- NOTE | 2020-02-17 14:27 | PT.OIE ---
Current Diagnoses Other bursitis of hip, left hip (02/14/20) Past Medical History (Last Updated 01/27/20 @ 11:37 by Nicole Hall PA-C) Allergic rhinitis (~1969) Atrophic vulvovaginitis Chickenpox (~1969) Catherine-Danlos syndrome (1958) Endometriosis (~1971) Fibroids (~1989) Heavy menstrual period (1971) Hyperlipemia (2009) Hypertension (2008) Hypothyroidism (1993) Infertility (Unknown) Joint pain (~1989) Kidney disease (Unknown) Measles (~1959) Mumps (~1959) Painful menstrual periods (Unknown) Proteinuria (1971) UTI (urinary tract infection) Past Surgical History (Last Updated 08/29/17 @ 17:05 by Felicia Perry LPN) History of total abdominal hysterectomy and bilateral salpingo-oophorectomy (2002) Hx of laparoscopy (~1988) Visit Care Team Role Provider Type Syed Perez MD Attending Provider Physician Primary Care Provider Referring Provider Specialty: Internal Medicine Address: [address] [place] [address], [address], [facility] Email: [email or web address] Physical Therapy Initial Evaluation PT-OP-A Visit Information Start: 02/14/20 14:41 Freq: Status: Active Protocol: Document 02/14/20 14:44 [facility] (Rec: 02/14/20 16:33 [facility] [id number]) Out-Patient Physical Therapy Visit Information Visit Information Visit Type Initial Evaluation Visit Start Time 14:35 Visit Stop Time 15:15 Total Visit Minutes 40 Visit Number 1 Evaluation Information Evaluation Date 02/14/20 PT-OP-B Current Condition Start: 02/14/20 14:41 Freq: Status: Active Protocol: Document 02/14/20 14:44 [facility] (Rec: 02/14/20 16:33 [facility] [id number]) Current Condition History of Current Condition Onset Date July 2019 Current Complaints left lateral hip and knee pain , hip pain with hills and sleeping left side History of Current Condition 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 Has a history of hip bursitis. This new hip pain felt different to her. It started in July and by August she was more painful. She had been walking a lot of hills and needed to stop. Pain is lateral and it goes to the top of her knee. She also notes her knee cap will tend to sublux. She does a lot of walking and will get pain down the front of her thigh. 2015 started to notice some stiffness, now she cant even sit cross legged on the floor any more due to her left hip. Sideways motion is painful. She feels the hills brought her pain on. 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 Treatment Goals Patient/Caregiver Goals Pt would be able to return to standing from a squat and be able to sit cross legged on the floor without pain. She would also like to be able to walk uphills without pain Prior Functional Status Baseline Function- ADL's Independent Baseline Function- Mobility Independent Baseline Function- Gait was able to ambulate hills prior to July Current Functional Impairments (Reported) Functional Limitations- Mobility/Gait pain walking hills, limitations in hip mobility especially with hip ER and sitting crosslegged on the floor. PT-OP-C Subjective Start: 02/14/20 14:41 Freq: Status: Active Protocol: Document 02/14/20 14:30 [facility] (Rec: 02/17/20 14:08 [facility] [id number]) OP-PT Pain Assessment Pain Assessment Grid Paper Pain Assessment Grid Completed Yes Location left lateral hip Pain Location Details left lateral hip Intensity 6 Scale Used Numeric (0 - 10) Radiating Location down the anterior thigh to the knee Other Pain Aggravating Factors walking uphill Comments Pain Comments pain ranges from 3-6. She can experience a flare of symptoms making it difficult to sleep or to roll over ontot he left hip. If she pushes it with hills then she will have a delayed onset of pain 6 -8 hours later. This usually lasts for a couple of days or so. PT-OP-F Manual Assessment Start: 02/14/20 14:41 Freq: Status: Active Protocol: Document 02/14/20 14:30 [facility] (Rec: 02/17/20 14:12 [facility] [id number]) Manual Assessments Soft Tissue Assessment Soft Tissue Mobility Assessment tightness in the ITB and iliopsoas fascial tissue L>R, adductor tissue B Joint Mobility Assessment Joint Mobility Assessment decreased anterior joint mobility of the left hip for hip ER PT-OP-J Posture/Palpation/Skin Start: 02/14/20 14:41 Freq: Status: Active Protocol: Document 02/14/20 14:30 [facility] (Rec: 02/17/20 14:12 [facility] [id number]) Palpation Assessment Location left lateral hip, greater trochanter Palpation Location left lateral hip, greater trochanter Palpation Findings Tenderness Palpation Details tenderness on the left lateral hip in the proximity of the bursa PT-OP-K Range of Motion Start: 02/14/20 14:41 Freq: Status: Active Protocol: Document 02/14/20 14:30 [facility] (Rec: 02/17/20 14:12 [facility] [id number]) Hip Goniometric Range of Motion Hip left Testing Position Supine Flexion w/Knee Flexed 115 Straight Leg Raise 85 Extension 0 Abduction 20 Internal Rotation 15 External Rotation 5 Comments pt is limited in hip ER on the left as compared to the right . She is limited in hip extension B with + aldo test Hip ROM Limitations Hip ROM Limitations Soft Tissue Tightness Comments tightness in the ITB and iliopsoas limits full hip extension and hip ER PT-OP-Q Treatments Start: 02/14/20 14:41 Freq: Status: Active Protocol: Document 02/14/20 16:35 [facility] (Rec: 02/14/20 16:36 [facility] [id number]) Therapeutic Exercises Supine Exercises iliopsoas stretch in supine Side left Reps/Minutes hold 30 sec to 1 min Comments aldo test position Self-Care/Home Management Treatment Education Patient Education Home Exercise Program,Pain Management Other Education pt educated in ice massage over the bursa 4-5 min PT-OP-T Assessment and Plan Start: 02/14/20 14:41 Freq: Status: Active Protocol: Document 02/14/20 14:30 [facility] (Rec: 02/17/20 14:26 [facility] [email or web address]) Physical Therapy Assessment Rehab Potential Rehabilitation Potential Excellent Evaluation Complexity Number of Personal Factors/Comorbidities 0 Number of Body Systems Impaired 1-2 Clinical Presentation at Evaluation Stable Impairments Impairments Activity Tolerance,Functional Mobility,Gait,Pain,ROM,Soft Tissue Mobility Goals tightness of the ITB, Quadriceps, iliopsoas L Impairment Tightness of the ITB, quadriceps, iliopsoas on the left [facility] Goal (LTG) Decrease soft tissue tightness with manual therapy techniques and stretches. Pt is no longer tender to palpation over the greater trochanter and she has a negative aldo test. LTG Duration 8 weeks Decreased left hip ROM into ER Impairment Decreased left hip ROM into hip ER Short Term Goal (STG) Maura is educated on specific stretches to lengthen her ITB and iliopsoas to improved anterior glide of the hip and improve hip ER. She is able to improve hip ER to 10 degrees or better. STG Duration 4 weeks Template Reproduction Technician Goal (LTG) Maura is able to return to sitting on the floor cross legged for meditation activities without increased pain. LTG Duration 8 weeks left lateral hip pain rated 3-6/10 Impairment Left lateral hip pain rated 3- 6/10 Template Reproduction Technician Goal (LTG) Maura is able to decrease pain in her hips to 2 or less and she is able to return to walking including hills without increased complaints of pain. Assessment Summary Assessment Maura is a 59 year old female referred to Physical therapy with chief complaint of left sided hip pain that began in July 2019. Pt notes she had been walking a lot of hills and this seemed to aggravate her hip. She has a history of Catherine Danlos Syndrome and she has been very careful with her joints and staying active . At this time she is limited with her left hip mobility especially into hip ER. She is unable to sit on the floor cross legged at this time and she notes she has always been able to do this. She also has pain getting up from a squat, getting into and out of a car or bathtub, and laying on her left hip when it is flared. Pain ranges from 3/10 at baseline to 6/10 with a flare. Her pain and radiate from the lateral hip to the knee and occasionally in the front of her thgh. With examination today Maura is very tight in her ITB, iliopsoas, and quadriceps muscle. 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 She does show good hip flexion and IR ROM but is limited in hip ER. It may be more soft tissue tightness at his point that is creating her pain symptoms. I started her today with a hip flexor stretch and as was advised to perform ice massage over the greater trochanter. Treatment will focus on a flexibility program and manual therapy work to release tightness in iliopsoas and ITB . IT will progress to stabilization exercises to assist with stairs and squatting mobility. Maura is a good candidate for PT. Physical Therapy Plan Frequency and Duration Frequency of Treatment 2x/Week Duration of Treatment 8 Plan of Care Start Date 02/14/20 Plan of Care End Date 04/10/20 Therapeutic Interventions Therapeutic Interventions Home Exercise Program,Manual Therapy,Patient/Caregiver Education,Self-Care/Home Management,Soft Tissue Mobilization,Therapeutic Exercises Next Visit Focus/Plan Next Note Type Treatment Note Next Visit Plan Begin working on soft tissue release of the ITB, iliopsoas, and quads, review aldo test stretch and add in 1/2 kneeling and ITB stretches
--- NOTE | 2020-02-17 14:28 | PT.OPPOC ---
Physical, Occupational & Speech Therapy At [facility] Current Diagnoses Other bursitis of hip, left hip (02/14/20) Visit Care Team Role Provider Type Syed Perez MD Attending Provider Physician Primary Care Provider Referring Provider Specialty: Internal Medicine Address: [address] [place] [address], [facility] [address], [place], [address] Email: [email or web address] Plan Of Care PT-OP-T Assessment and Plan Start: 02/14/20 14:41 Freq: Status: Active Protocol: Document 02/14/20 14:30 [facility] (Rec: 02/17/20 14:26 [facility] [email or web address]) Physical Therapy Assessment Rehab Potential Rehabilitation Potential Excellent Evaluation Complexity Number of Personal Factors/Comorbidities 0 Number of Body Systems Impaired 1-2 Clinical Presentation at Evaluation Stable Impairments Impairments Activity Tolerance,Functional Mobility,Gait,Pain,ROM,Soft Tissue Mobility Goals tightness of the ITB, Quadriceps, iliopsoas L Impairment Tightness of the ITB, quadriceps, iliopsoas on the left Pill Coater Goal (LTG) Decrease soft tissue tightness with manual therapy techniques and stretches. Pt is no longer tender to palpation over the greater trochanter and she has a negative aldo test. LTG Duration 8 weeks Decreased left hip ROM into ER Impairment Decreased left hip ROM into hip ER Short Term Goal (STG) Maura is educated on specific stretches to lengthen her ITB and iliopsoas to improved anterior glide of the hip and improve hip ER. She is able to improve hip ER to 10 degrees or better. STG Duration 4 weeks [facility] Goal (LTG) Maura is able to return to sitting on the floor cross legged for meditation activities without increased pain. LTG Duration 8 weeks left lateral hip pain rated 3-6/10 Impairment Left lateral hip pain rated 3- 6/10 [facility] Goal (LTG) Maura is able to decrease pain in her hips to 2 or less and she is able to return to walking including hills without increased complaints of pain. Assessment Summary Assessment Maura is a 59 year old female referred to Physical therapy with chief complaint of left sided hip pain that began in July 2019. Pt notes she had been walking a lot of hills and this seemed to aggravate her hip. She has a history of Catherine Danlos Syndrome and she has been very careful with her joints and staying active . At this time she is limited with her left hip mobility especially into hip ER. She is unable to sit on the floor cross legged at this time and she notes she has always been able to do this. She also has pain getting up from a squat, getting into and out of a car or bathtub, and laying on her left hip when it is flared. Pain ranges from 3/10 at baseline to 6/10 with a flare. Her pain and radiate from the lateral hip to the knee and occasionally in the front of her thigh. With examination today Maura is very tight in her ITB, iliopsoas, and quadriceps muscle. 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 She does show good hip flexion and IR ROM but is limited in hip ER. It may be more soft tissue tightness at his point that is creating her pain symptoms. I started her today with a hip flexor stretch and as was advised to perform ice massage over the greater trochanter. Treatment will focus on a flexibility program and manual therapy work to release tightness in iliopsoas and ITB . IT will progress to stabilization exercises to assist with stairs and squatting mobility. Maura is a good candidate for PT. Physical Therapy Plan Frequency and Duration Frequency of Treatment 2x/Week Duration of Treatment 8 Plan of Care Start Date 02/14/20 Plan of Care End Date 04/10/20 Therapeutic Interventions Therapeutic Interventions Home Exercise Program,Manual Therapy,Patient/Caregiver Education,Self-Care/Home Management,Soft Tissue Mobilization,Therapeutic Exercises Next Visit Focus/Plan Next Note Type Treatment Note Next Visit Plan Begin working on soft tissue release of the ITB, iliopsoas, and quads, review aldo test stretch and add in 1/2 kneeling and ITB stretches Plan of Care Dates Plan of Care Start Date 02/14/20 Plan of Care End Date 04/10/20 Electronically Signed by: Norah Yu, PT 02/17/20 [id number] Please Sign and Return: I have reviewed this Plan of Care and certify that the skilled therapy services above are required to meet the patient?s needs. Physician Signature Date Printed Name and Credentials Clinical Instructor Signature Printed Name and Credentials
--- NOTE | 2020-02-21 17:52 | PT.OTN ---
Current Diagnoses Other bursitis of hip, left hip (02/21/20) Physical Therapy Treatment Note PT-OP-A Visit Information Start: 02/14/20 14:41 Freq: Status: Active Protocol: Document 02/21/20 13:06 [facility] (Rec: 02/21/20 13:07 [facility] [id number]) Out-Patient Physical Therapy Visit Information Visit Information Visit Type Treatment Note Visit Start Time 13:00 Visit Stop Time 13:45 Total Visit Minutes 45 Visit Number 2 PT-OP-B Current Condition Start: 02/14/20 14:41 Freq: Status: Active Protocol: Document 02/14/20 14:44 [facility] (Rec: 02/14/20 16:33 [facility] [id number]) Current Condition History of Current Condition Onset Date July 2019 Current Complaints left lateral hip and knee pain , hip pain with hills and sleeping left side History of Current Condition 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 Has a history of hip bursitis. This new hip pain felt different to her. It started in July and by August she was more painful. She had been walking a lot of hills and needed to stop. Pain is lateral and it goes to the top of her knee. She also notes her knee cap will tend to sublux. She does a lot of walking and will get pain down the front of her thigh. 2015 started to notice some stiffness, now she cant even sit cross legged on the floor any more due to her left hip. Sideways motion is painful. She feels the hills brought her pain on. 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 Treatment Goals Patient/Caregiver Goals Pt would be able to return to standing from a squat and be able to sit cross legged on the floor without pain. She would also like to be able to walk uphills without pain Prior Functional Status Baseline Function- ADL's Independent Baseline Function- Mobility Independent Baseline Function- Gait was able to ambulate hills prior to July Current Functional Impairments (Reported) Functional Limitations- Mobility/Gait pain walking hills, limitations in hip mobility especially with hip ER and sitting crosslegged on the floor. PT-OP-C Subjective Start: 02/14/20 14:41 Freq: Status: Active Protocol: Document 02/21/20 13:06 [facility] (Rec: 02/21/20 13:07 [facility] [id number]) OP-PT Subjective Patient Comments Patient Comments Maura notes the pain wakes her up at night, she has been working on the ice and the stretch PT-OP-F Manual Assessment Start: 02/14/20 14:41 Freq: Status: Active Protocol: Document 02/14/20 14:30 [facility] (Rec: 02/17/20 14:12 [facility] [email or web address]) Manual Assessments Soft Tissue Assessment Soft Tissue Mobility Assessment tightness in the ITB and iliopsoas fascial tissue L>R, adductor tissue B Joint Mobility Assessment Joint Mobility Assessment decreased anterior joint mobility of the left hip for hip ER PT-OP-J Posture/Palpation/Skin Start: 02/14/20 14:41 Freq: Status: Active Protocol: Document 02/14/20 14:30 [facility] (Rec: 02/17/20 14:12 [facility] [email or web address]) Palpation Assessment Location left lateral hip, greater trochanter Palpation Location left lateral hip, greater trochanter Palpation Findings Tenderness Palpation Details tenderness on the left lateral hip in the proximity of the bursa PT-OP-K Range of Motion Start: 02/14/20 14:41 Freq: Status: Active Protocol: Document 02/14/20 14:30 [facility] (Rec: 02/17/20 14:12 [facility] [email or web address]) Hip Goniometric Range of Motion Hip left Testing Position Supine Flexion w/Knee Flexed 115 Straight Leg Raise 85 Extension 0 Abduction 20 Internal Rotation 15 External Rotation 5 Comments pt is limited in hip ER on the left as compared to the right . She is limited in hip extension B with + aldo test Hip ROM Limitations Hip ROM Limitations Soft Tissue Tightness Comments tightness in the ITB and iliopsoas limits full hip extension and hip ER PT-OP-Q Treatments Start: 02/14/20 14:41 Freq: Status: Active Protocol: Document 02/21/20 17:43 [facility] (Rec: 02/21/20 17:51 [facility] [id number]) Therapeutic Exercises Supine Exercises ITB stretch with strap Supine Exercise Name ITB stretch with strap iliopsoas stretch in supine Side left Reps/Minutes hold 30 sec to 1 min Comments aldo test position Manual Therapy Treatment Soft Tissue Mobilization MFR ITB, quad on the left Body Location ITB, Quad Comments tightness in the posterior fiers of the ITB and near the greater tronchanter Manual Techniques manual iliopsoas stretch Comments in aldo test positions PT-OP-R Modalities Start: 02/21/20 17:51 Freq: Status: Active Protocol: Document 02/21/20 17:51 [facility] (Rec: 02/21/20 17:52 [facility] [id number]) Ultrasound Therapy Treatment left ITB proximal Treatment Duration (minutes) 8 Patient Position Sidelying Coupling Medium Ultrasound Gel Applicator Size (cm2) 5 Frequency Setting (mHz) 1 Duty Cycle 100% Intensity Setting (w/cm2) 1.5 PT-OP-T Assessment and Plan Start: 02/14/20 14:41 Freq: Status: Active Protocol: Document 02/21/20 17:43 [facility] (Rec: 02/21/20 17:51 [facility] [id number]) Physical Therapy Assessment Assessment Summary Assessment I worked today on releasing the ITB and quad, we did some Ultrasound over the ITB first to help relax it. Maura tolerated this treatment well. She is quite tight surrounding her lateral hip. Physical Therapy Plan Frequency and Duration Frequency of Treatment 2x/Week Duration of Treatment 8 Plan of Care Start Date 02/14/20 Plan of Care End Date 04/10/20 Therapeutic Interventions Therapeutic Interventions Home Exercise Program,Manual Therapy,Patient/Caregiver Education,Self-Care/Home Management,Soft Tissue Mobilization,Therapeutic Exercises Next Visit Focus/Plan Next Note Type Treatment Note Next Visit Plan US, MFR, manual stretches for the left hip
--- NOTE | 2020-02-26 17:56 | PT.OTN ---
Current Diagnoses Other bursitis of hip, left hip (02/26/20) Physical Therapy Treatment Note PT-OP-A Visit Information Start: 02/14/20 14:41 Freq: Status: Active Protocol: Document 02/26/20 13:43 [facility] (Rec: 02/26/20 13:44 [facility] [id number]) Out-Patient Physical Therapy Visit Information Visit Information Visit Type Treatment Note Visit Start Time 13:45 Visit Stop Time 14:30 Total Visit Minutes 45 Visit Number 3 PT-OP-B Current Condition Start: 02/14/20 14:41 Freq: Status: Active Protocol: Document 02/14/20 14:44 [facility] (Rec: 02/14/20 16:33 [facility] [id number]) Current Condition History of Current Condition Onset Date July 2019 Current Complaints left lateral hip and knee pain , hip pain with hills and sleeping left side History of Current Condition 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 Has a history of hip bursitis. This new hip pain felt different to her. It started in July and by August she was more painful. She had been walking a lot of hills and needed to stop. Pain is lateral and it goes to the top of her knee. She also notes her knee cap will tend to sublux. She does a lot of walking and will get pain down the front of her thigh. 2015 started to notice some stiffness, now she cant even sit cross legged on the floor any more due to her left hip. Sideways motion is painful. She feels the hills brought her pain on. 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 Treatment Goals Patient/Caregiver Goals Pt would be able to return to standing from a squat and be able to sit cross legged on the floor without pain. She would also like to be able to walk uphills without pain Prior Functional Status Baseline Function- ADL's Independent Baseline Function- Mobility Independent Baseline Function- Gait was able to ambulate hills prior to July Current Functional Impairments (Reported) Functional Limitations- Mobility/Gait pain walking hills, limitations in hip mobility especially with hip ER and sitting crosslegged on the floor. PT-OP-C Subjective Start: 02/14/20 14:41 Freq: Status: Active Protocol: Document 02/26/20 13:45 [facility] (Rec: 02/26/20 13:50 [facility] [id number]) OP-PT Subjective Patient Comments Patient Comments pt reports her leg was really sore for a few days, she feels a little looser with her ROM. Patient Reported Progress Improving PT-OP-F Manual Assessment Start: 02/14/20 14:41 Freq: Status: Active Protocol: Document 02/14/20 14:30 [facility] (Rec: 02/17/20 14:12 [facility] [email or web address]) Manual Assessments Soft Tissue Assessment Soft Tissue Mobility Assessment tightness in the ITB and iliopsoas fascial tissue L>R, adductor tissue B Joint Mobility Assessment Joint Mobility Assessment decreased anterior joint mobility of the left hip for hip ER PT-OP-J Posture/Palpation/Skin Start: 02/14/20 14:41 Freq: Status: Active Protocol: Document 02/14/20 14:30 [facility] (Rec: 02/17/20 14:12 [facility] [email or web address]) Palpation Assessment Location left lateral hip, greater trochanter Palpation Location left lateral hip, greater trochanter Palpation Findings Tenderness Palpation Details tenderness on the left lateral hip in the proximity of the bursa PT-OP-K Range of Motion Start: 02/14/20 14:41 Freq: Status: Active Protocol: Document 02/14/20 14:30 [facility] (Rec: 02/17/20 14:12 [facility] [email or web address]) Hip Goniometric Range of Motion Hip left Testing Position Supine Flexion w/Knee Flexed 115 Straight Leg Raise 85 Extension 0 Abduction 20 Internal Rotation 15 External Rotation 5 Comments pt is limited in hip ER on the left as compared to the right . She is limited in hip extension B with + aldo test Hip ROM Limitations Hip ROM Limitations Soft Tissue Tightness Comments tightness in the ITB and iliopsoas limits full hip extension and hip ER PT-OP-Q Treatments Start: 02/14/20 14:41 Freq: Status: Active Protocol: Document 02/26/20 17:51 [facility] (Rec: 02/26/20 17:56 [facility] [email or web address]) Therapeutic Exercises Supine Exercises seated adductor stretch with self massage Comments seated adductor stretch with self massage ITB stretch with strap Supine Exercise Name ITB stretch with strap iliopsoas stretch in supine Side left Reps/Minutes hold 30 sec to 1 min Comments aldo test position Manual Therapy Treatment Soft Tissue Mobilization MFR ITB, quad on the left Body Location ITB, Quad Comments tightness in the posterior fiers of the ITB and near the greater tronchanter Manual Techniques manual iliopsoas stretch Comments in sidelying positions today, also worked on ITB stretching in sidelying positions PT-OP-R Modalities Start: 02/21/20 17:51 Freq: Status: Active Protocol: Document 02/26/20 17:51 [facility] (Rec: 02/26/20 17:56 [facility] [email or web address]) Ultrasound Therapy Treatment left ITB proximal Treatment Duration (minutes) 8 Patient Position Sidelying Coupling Medium Ultrasound Gel Applicator Size (cm2) 5 Frequency Setting (mHz) 1 Duty Cycle 100% Intensity Setting (w/cm2) 1.5 PT-OP-T Assessment and Plan Start: 02/14/20 14:41 Freq: Status: Active Protocol: Document 02/26/20 17:51 [facility] (Rec: 02/26/20 17:56 [facility] [email or web address]) Physical Therapy Assessment Assessment Summary Assessment pt noted a little more ROM today with her left hip following treatment. Good tolerance for tx Physical Therapy Plan Frequency and Duration Frequency of Treatment 2x/Week Duration of Treatment 8 Plan of Care Start Date 02/14/20 Plan of Care End Date 04/10/20
--- NOTE | 2020-02-28 18:03 | PT.OTN ---
Current Diagnoses Other bursitis of hip, left hip (02/28/20) Physical Therapy Treatment Note PT-OP-A Visit Information Start: 02/14/20 14:41 Freq: Status: Active Protocol: Document 02/28/20 13:48 [facility] (Rec: 02/28/20 13:51 [facility] [id number]) Out-Patient Physical Therapy Visit Information Visit Information Visit Type Treatment Note Visit Start Time 13:45 Visit Stop Time 14:30 Total Visit Minutes 45 Visit Number 4 PT-OP-B Current Condition Start: 02/14/20 14:41 Freq: Status: Active Protocol: Document 02/14/20 14:44 [facility] (Rec: 02/14/20 16:33 [facility] [id number]) Current Condition History of Current Condition Onset Date July 2019 Current Complaints left lateral hip and knee pain , hip pain with hills and sleeping left side History of Current Condition 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 Has a history of hip bursitis. This new hip pain felt different to her. It started in July and by August she was more painful. She had been walking a lot of hills and needed to stop. Pain is lateral and it goes to the top of her knee. She also notes her knee cap will tend to sublux. She does a lot of walking and will get pain down the front of her thigh. 2015 started to notice some stiffness, now she cant even sit cross legged on the floor any more due to her left hip. Sideways motion is painful. She feels the hills brought her pain on. 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 Treatment Goals Patient/Caregiver Goals Pt would be able to return to standing from a squat and be able to sit cross legged on the floor without pain. She would also like to be able to walk uphills without pain Prior Functional Status Baseline Function- ADL's Independent Baseline Function- Mobility Independent Baseline Function- Gait was able to ambulate hills prior to July Current Functional Impairments (Reported) Functional Limitations- Mobility/Gait pain walking hills, limitations in hip mobility especially with hip ER and sitting crosslegged on the floor. PT-OP-C Subjective Start: 02/14/20 14:41 Freq: Status: Active Protocol: Document 02/28/20 13:48 [facility] (Rec: 02/28/20 13:51 [facility] [id number]) OP-PT Subjective Patient Comments Patient Comments pt notes she has tenderness in the groin and the inside. She has been trying to massage the anterior hip PT-OP-F Manual Assessment Start: 02/14/20 14:41 Freq: Status: Active Protocol: Document 02/14/20 14:30 [facility] (Rec: 02/17/20 14:12 [facility] [email or web address]) Manual Assessments Soft Tissue Assessment Soft Tissue Mobility Assessment tightness in the ITB and iliopsoas fascial tissue L>R, adductor tissue B Joint Mobility Assessment Joint Mobility Assessment decreased anterior joint mobility of the left hip for hip ER PT-OP-J Posture/Palpation/Skin Start: 02/14/20 14:41 Freq: Status: Active Protocol: Document 02/14/20 14:30 [facility] (Rec: 02/17/20 14:12 [facility] [email or web address]) Palpation Assessment Location left lateral hip, greater trochanter Palpation Location left lateral hip, greater trochanter Palpation Findings Tenderness Palpation Details tenderness on the left lateral hip in the proximity of the bursa PT-OP-K Range of Motion Start: 02/14/20 14:41 Freq: Status: Active Protocol: Document 02/14/20 14:30 [facility] (Rec: 02/17/20 14:12 [facility] [email or web address]) Hip Goniometric Range of Motion Hip left Testing Position Supine Flexion w/Knee Flexed 115 Straight Leg Raise 85 Extension 0 Abduction 20 Internal Rotation 15 External Rotation 5 Comments pt is limited in hip ER on the left as compared to the right . She is limited in hip extension B with + aldo test Hip ROM Limitations Hip ROM Limitations Soft Tissue Tightness Comments tightness in the ITB and iliopsoas limits full hip extension and hip ER PT-OP-Q Treatments Start: 02/14/20 14:41 Freq: Status: Active Protocol: Document 02/28/20 17:55 [facility] (Rec: 02/28/20 17:58 [facility] [id number]) Therapeutic Exercises Supine Exercises seated adductor stretch with self massage Comments seated adductor stretch with self massage Manual Therapy Treatment Soft Tissue Mobilization MFR ITB, quad on the left Body Location ITB, Quad, iliposoas Comments tightness is slowly decreasing , moved up to the anterior hip to release iliopsoas attachemnts Manual Techniques manual iliopsoas stretch Comments in sidelying positions and aldo position today, also worked on ITB stretching in sidelying positions PT-OP-R Modalities Start: 02/21/20 17:51 Freq: Status: Active Protocol: Document 02/28/20 17:58 [facility] (Rec: 02/28/20 18:03 [facility] [id number]) Ultrasound Therapy Treatment left ITB proximal Treatment Duration (minutes) 8 Patient Position Sidelying Coupling Medium Ultrasound Gel Applicator Size (cm2) 5 Frequency Setting (mHz) 1 Duty Cycle 100% Intensity Setting (w/cm2) 1.5 PT-OP-T Assessment and Plan Start: 02/14/20 14:41 Freq: Status: Active Protocol: Document 02/28/20 17:55 [facility] (Rec: 02/28/20 17:58 [facility] [id number]) Physical Therapy Assessment Assessment Summary Assessment pt is feeling better with hip extension and can perform a quad stretch following tx. Still feeling tight with her ER Physical Therapy Plan Frequency and Duration Frequency of Treatment 2x/Week Duration of Treatment 8 Plan of Care Start Date 02/14/20 Plan of Care End Date 04/10/20 Therapeutic Interventions Therapeutic Interventions Home Exercise Program,Manual Therapy,Patient/Caregiver Education,Self-Care/Home Management,Soft Tissue Mobilization,Therapeutic Exercises Next Visit Focus/Plan Next Note Type Treatment Note Next Visit Plan US, MFR, manual stretches for the left hip
--- NOTE | 2020-03-04 17:57 | PT.OTN ---
Current Diagnoses Other bursitis of hip, left hip (03/04/20) Physical Therapy Treatment Note PT-OP-A Visit Information Start: 02/14/20 14:41 Freq: Status: Active Protocol: Document 03/04/20 13:47 [facility] (Rec: 03/04/20 13:47 [facility] [id number]) Out-Patient Physical Therapy Visit Information Visit Information Visit Type Treatment Note Visit Start Time 13:52 Visit Stop Time 14:30 Total Visit Minutes 38 Visit Number 5 PT-OP-B Current Condition Start: 02/14/20 14:41 Freq: Status: Active Protocol: Document 02/14/20 14:44 [facility] (Rec: 02/14/20 16:33 [facility] [id number]) Current Condition History of Current Condition Onset Date July 2019 Current Complaints left lateral hip and knee pain , hip pain with hills and sleeping left side History of Current Condition 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 Has a history of hip bursitis. This new hip pain felt different to her. It started in July and by August she was more painful. She had been walking a lot of hills and needed to stop. Pain is lateral and it goes to the top of her knee. She also notes her knee cap will tend to sublux. She does a lot of walking and will get pain down the front of her thigh. 2015 started to notice some stiffness, now she cant even sit cross legged on the floor any more due to her left hip. Sideways motion is painful. She feels the hills brought her pain on. 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 Treatment Goals Patient/Caregiver Goals Pt would be able to return to standing from a squat and be able to sit cross legged on the floor without pain. She would also like to be able to walk uphills without pain Prior Functional Status Baseline Function- ADL's Independent Baseline Function- Mobility Independent Baseline Function- Gait was able to ambulate hills prior to July Current Functional Impairments (Reported) Functional Limitations- Mobility/Gait pain walking hills, limitations in hip mobility especially with hip ER and sitting crosslegged on the floor. PT-OP-C Subjective Start: 02/14/20 14:41 Freq: Status: Active Protocol: Document 03/04/20 13:52 [facility] (Rec: 03/04/20 13:54 [facility] [id number]) OP-PT Subjective Patient Comments Patient Comments pt reports she did a fair amount of hiking she was sore more in the front of the muscle not as much as the latererl rotation. Patient Reported Progress Improving PT-OP-F Manual Assessment Start: 02/14/20 14:41 Freq: Status: Active Protocol: Document 02/14/20 14:30 [facility] (Rec: 02/17/20 14:12 [facility] [email or web address]) Manual Assessments Soft Tissue Assessment Soft Tissue Mobility Assessment tightness in the ITB and iliopsoas fascial tissue L>R, adductor tissue B Joint Mobility Assessment Joint Mobility Assessment decreased anterior joint mobility of the left hip for hip ER PT-OP-J Posture/Palpation/Skin Start: 02/14/20 14:41 Freq: Status: Active Protocol: Document 02/14/20 14:30 [facility] (Rec: 02/17/20 14:12 [facility] [email or web address]) Palpation Assessment Location left lateral hip, greater trochanter Palpation Location left lateral hip, greater trochanter Palpation Findings Tenderness Palpation Details tenderness on the left lateral hip in the proximity of the bursa PT-OP-K Range of Motion Start: 02/14/20 14:41 Freq: Status: Active Protocol: Document 02/14/20 14:30 [facility] (Rec: 02/17/20 14:12 [facility] [email or web address]) Hip Goniometric Range of Motion Hip left Testing Position Supine Flexion w/Knee Flexed 115 Straight Leg Raise 85 Extension 0 Abduction 20 Internal Rotation 15 External Rotation 5 Comments pt is limited in hip ER on the left as compared to the right . She is limited in hip extension B with + aldo test Hip ROM Limitations Hip ROM Limitations Soft Tissue Tightness Comments tightness in the ITB and iliopsoas limits full hip extension and hip ER PT-OP-Q Treatments Start: 02/14/20 14:41 Freq: Status: Active Protocol: Document 03/04/20 17:53 [facility] (Rec: 03/04/20 17:56 [facility] [email or web address]) Therapeutic Exercises Supine Exercises modified piriformis stretch Supine Exercise Name modified piriformis stretch Reps/Minutes 2 x 30-60 sec windshield wipers Reps/Minutes x10 reps iliopsoas stretch in supine Side left Reps/Minutes hold 30 sec to 1 min Comments aldo test position Manual Therapy Treatment Soft Tissue Mobilization MFR ITB, quad on the left Body Location ITB, Quad, iliposoas Comments tightness is slowly decreasing , moved up to the anterior hip to release iliopsoas attachemnts Manual Techniques manual iliopsoas stretch Comments in sidelying positions and aldo position today, also worked on ITB stretching in sidelying positions PT-OP-R Modalities Start: 02/21/20 17:51 Freq: Status: Active Protocol: Document 03/04/20 17:57 [facility] (Rec: 03/04/20 17:57 [facility] [email or web address]) Ultrasound Therapy Treatment left ITB proximal Treatment Duration (minutes) 8 Patient Position Sidelying Coupling Medium Ultrasound Gel Applicator Size (cm2) 5 Frequency Setting (mHz) 1 Duty Cycle 100% Intensity Setting (w/cm2) 1.5 PT-OP-T Assessment and Plan Start: 02/14/20 14:41 Freq: Status: Active Protocol: Document 03/04/20 17:53 [facility] (Rec: 03/04/20 17:56 [facility] [email or web address]) Physical Therapy Assessment Assessment Summary Assessment still doing better with hip extension but hip ER remains tight. Continue to progress exercises as tolerated working towards hip ER. Trial of prone hip rotation next visit Physical Therapy Plan Frequency and Duration Frequency of Treatment 2x/Week Duration of Treatment 8 Plan of Care Start Date 02/14/20 Plan of Care End Date 04/10/20 Therapeutic Interventions Therapeutic Interventions Home Exercise Program,Manual Therapy,Patient/Caregiver Education,Self-Care/Home Management,Soft Tissue Mobilization,Therapeutic Exercises Next Visit Focus/Plan Next Note Type Treatment Note Next Visit Plan US, MFR, manual stretches for the left hip, trial of prone hip Er next visit
--- NOTE | 2020-03-06 18:09 | PT.OTN ---
Current Diagnoses Other bursitis of hip, left hip (03/06/20) Physical Therapy Treatment Note PT-OP-A Visit Information Start: 02/14/20 14:41 Freq: Status: Active Protocol: Document 03/06/20 18:05 [facility] (Rec: 03/06/20 18:06 [facility] [id number]) Out-Patient Physical Therapy Visit Information Visit Information Visit Type Treatment Note Visit Start Time 13:45 Visit Stop Time 14:30 Total Visit Minutes 45 Visit Number 6 PT-OP-B Current Condition Start: 02/14/20 14:41 Freq: Status: Active Protocol: Document 02/14/20 14:44 [facility] (Rec: 02/14/20 16:33 [facility] [id number]) Current Condition History of Current Condition Onset Date July 2019 Current Complaints left lateral hip and knee pain , hip pain with hills and sleeping left side History of Current Condition 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 Has a history of hip bursitis. This new hip pain felt different to her. It started in July and by August she was more painful. She had been walking a lot of hills and needed to stop. Pain is lateral and it goes to the top of her knee. She also notes her knee cap will tend to sublux. She does a lot of walking and will get pain down the front of her thigh. 2015 started to notice some stiffness, now she cant even sit cross legged on the floor any more due to her left hip. Sideways motion is painful. She feels the hills brought her pain on. 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 Treatment Goals Patient/Caregiver Goals Pt would be able to return to standing from a squat and be able to sit cross legged on the floor without pain. She would also like to be able to walk uphills without pain Prior Functional Status Baseline Function- ADL's Independent Baseline Function- Mobility Independent Baseline Function- Gait was able to ambulate hills prior to July Current Functional Impairments (Reported) Functional Limitations- Mobility/Gait pain walking hills, limitations in hip mobility especially with hip ER and sitting crosslegged on the floor. PT-OP-C Subjective Start: 02/14/20 14:41 Freq: Status: Active Protocol: Document 03/06/20 18:05 [facility] (Rec: 03/06/20 18:06 [facility] [id number]) OP-PT Subjective Patient Comments Patient Comments pt reports she is still tight in ER but feeling looser overall Patient Reported Progress Improving PT-OP-F Manual Assessment Start: 02/14/20 14:41 Freq: Status: Active Protocol: Document 02/14/20 14:30 [facility] (Rec: 02/17/20 14:12 [facility] [email or web address]) Manual Assessments Soft Tissue Assessment Soft Tissue Mobility Assessment tightness in the ITB and iliopsoas fascial tissue L>R, adductor tissue B Joint Mobility Assessment Joint Mobility Assessment decreased anterior joint mobility of the left hip for hip ER PT-OP-J Posture/Palpation/Skin Start: 02/14/20 14:41 Freq: Status: Active Protocol: Document 02/14/20 14:30 [facility] (Rec: 02/17/20 14:12 [facility] [email or web address]) Palpation Assessment Location left lateral hip, greater trochanter Palpation Location left lateral hip, greater trochanter Palpation Findings Tenderness Palpation Details tenderness on the left lateral hip in the proximity of the bursa PT-OP-K Range of Motion Start: 02/14/20 14:41 Freq: Status: Active Protocol: Document 02/14/20 14:30 [facility] (Rec: 02/17/20 14:12 [facility] [email or web address]) Hip Goniometric Range of Motion Hip left Testing Position Supine Flexion w/Knee Flexed 115 Straight Leg Raise 85 Extension 0 Abduction 20 Internal Rotation 15 External Rotation 5 Comments pt is limited in hip ER on the left as compared to the right . She is limited in hip extension B with + aldo test Hip ROM Limitations Hip ROM Limitations Soft Tissue Tightness Comments tightness in the ITB and iliopsoas limits full hip extension and hip ER PT-OP-Q Treatments Start: 02/14/20 14:41 Freq: Status: Active Protocol: Document 03/06/20 18:06 [facility] (Rec: 03/06/20 18:09 [facility] [id number]) Therapeutic Exercises Supine Exercises modified piriformis stretch Supine Exercise Name modified piriformis stretch Reps/Minutes 2 x 30-60 sec Manual Therapy Treatment Soft Tissue Mobilization MFR ITB, quad on the left Body Location ITB, Quad, iliposoas Comments tightness is slowly decreasing , moved up to the anterior hip to release iliopsoas attachemnts Joint Mobilizations 1 Joint grade I gentle posterior capsule stretch and distraction withhip flexed Comments treatment was gentle due to pts joint hypermobility. Pt tolerated well with no reports of pain Manual Techniques prone quad and ER stretch Type prone quad and ER stretch manual iliopsoas stretch Comments in sidelying positions and aldo position today, also worked on ITB stretching in sidelying positions PT-OP-R Modalities Start: 02/21/20 17:51 Freq: Status: Active Protocol: Document 03/04/20 17:57 [facility] (Rec: 03/04/20 17:57 [facility] [email or web address]) Ultrasound Therapy Treatment left ITB proximal Treatment Duration (minutes) 8 Patient Position Sidelying Coupling Medium Ultrasound Gel Applicator Size (cm2) 5 Frequency Setting (mHz) 1 Duty Cycle 100% Intensity Setting (w/cm2) 1.5 PT-OP-T Assessment and Plan Start: 02/14/20 14:41 Freq: Status: Active Protocol: Document 03/06/20 18:06 [facility] (Rec: 03/06/20 18:09 [facility] [id number]) Physical Therapy Assessment Assessment Summary Assessment Still locked in hip ER, worked into the adductors today and did try very gentle jointmobs to assess how Maura tolerates this. Physical Therapy Plan Frequency and Duration Frequency of Treatment 2x/Week Duration of Treatment 8 Plan of Care Start Date 02/14/20 Plan of Care End Date 04/10/20 Therapeutic Interventions Therapeutic Interventions Home Exercise Program,Manual Therapy,Patient/Caregiver Education,Self-Care/Home Management,Soft Tissue Mobilization,Therapeutic Exercises Next Visit Focus/Plan Next Note Type Treatment Note Next Visit Plan begin lateral clam shells, distal ITB release, continue with MFR work at the hip
--- NOTE | 2020-03-18 11:42 | PT-OP ANOTE ---
Pt cancelled appt same day, not feeling well.
--- NOTE | 2020-03-20 12:55 | PT.OTN ---
Current Diagnoses Other bursitis of hip, left hip (03/20/20) Physical Therapy Treatment Note PT-OP-A Visit Information Start: 02/14/20 14:41 Freq: Status: Active Protocol: Document 03/20/20 11:15 [facility] (Rec: 03/20/20 12:55 [facility] [email or web address]) Out-Patient Physical Therapy Visit Information Visit Information Visit Type Treatment Note Visit Start Time 11:15 Visit Stop Time 12:00 Total Visit Minutes 45 Visit Number 8 PT-OP-B Current Condition Start: 02/14/20 14:41 Freq: Status: Active Protocol: Document 02/14/20 14:44 [facility] (Rec: 02/14/20 16:33 [facility] [id number]) Current Condition History of Current Condition Onset Date July 2019 Current Complaints left lateral hip and knee pain , hip pain with hills and sleeping left side History of Current Condition 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 Has a history of hip bursitis. This new hip pain felt different to her. It started in July and by August she was more painful. She had been walking a lot of hills and needed to stop. Pain is lateral and it goes to the top of her knee. She also notes her knee cap will tend to sublux. She does a lot of walking and will get pain down the front of her thigh. 2015 started to notice some stiffness, now she cant even sit cross legged on the floor any more due to her left hip. Sideways motion is painful. She feels the hills brought her pain on. 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 Treatment Goals Patient/Caregiver Goals Pt would be able to return to standing from a squat and be able to sit cross legged on the floor without pain. She would also like to be able to walk uphills without pain Prior Functional Status Baseline Function- ADL's Independent Baseline Function- Mobility Independent Baseline Function- Gait was able to ambulate hills prior to July Current Functional Impairments (Reported) Functional Limitations- Mobility/Gait pain walking hills, limitations in hip mobility especially with hip ER and sitting crosslegged on the floor. PT-OP-C Subjective Start: 02/14/20 14:41 Freq: Status: Active Protocol: Document 03/20/20 11:20 [facility] (Rec: 03/20/20 11:23 [facility] [id number]) OP-PT Subjective Patient Comments Patient Comments has had a little of a burning ache that wraps from the back of the hip. She has been walking 2 miles a day. She does feel like she has more mobility. She has been icing. Patient Reported Progress Improving PT-OP-F Manual Assessment Start: 02/14/20 14:41 Freq: Status: Active Protocol: Document 02/14/20 14:30 [facility] (Rec: 02/17/20 14:12 [facility] [email or web address]) Manual Assessments Soft Tissue Assessment Soft Tissue Mobility Assessment tightness in the ITB and iliopsoas fascial tissue L>R, adductor tissue B Joint Mobility Assessment Joint Mobility Assessment decreased anterior joint mobility of the left hip for hip ER PT-OP-J Posture/Palpation/Skin Start: 02/14/20 14:41 Freq: Status: Active Protocol: Document 02/14/20 14:30 [facility] (Rec: 02/17/20 14:12 [facility] [email or web address]) Palpation Assessment Location left lateral hip, greater trochanter Palpation Location left lateral hip, greater trochanter Palpation Findings Tenderness Palpation Details tenderness on the left lateral hip in the proximity of the bursa PT-OP-K Range of Motion Start: 02/14/20 14:41 Freq: Status: Active Protocol: Document 02/14/20 14:30 [facility] (Rec: 02/17/20 14:12 [facility] [email or web address]) Hip Goniometric Range of Motion Hip left Testing Position Supine Flexion w/Knee Flexed 115 Straight Leg Raise 85 Extension 0 Abduction 20 Internal Rotation 15 External Rotation 5 Comments pt is limited in hip ER on the left as compared to the right . She is limited in hip extension B with + aldo test Hip ROM Limitations Hip ROM Limitations Soft Tissue Tightness Comments tightness in the ITB and iliopsoas limits full hip extension and hip ER PT-OP-Q Treatments Start: 02/14/20 14:41 Freq: Status: Active Protocol: Document 03/20/20 11:15 [facility] (Rec: 03/20/20 12:55 [facility] [email or web address]) Therapeutic Exercises Supine Exercises modified piriformis stretch Supine Exercise Name modified piriformis stretch Reps/Minutes 2 x 30-60 sec iliopsoas stretch in supine Side left Reps/Minutes hold 30 sec to 1 min Comments aldo test position Manual Therapy Treatment Soft Tissue Mobilization adductor release Body Location left adductor release left iliacus MFR Body Location left iliacus MFR Comments pt has history of hysterectomy and did have adhesions inbetween her uterus and bladder. MFR ITB, quad on the left Body Location ITB, Quad, iliposoas Comments tightness is slowly decreasing , moved up to the anterior hip to release iliopsoas attachemnts Joint Mobilizations 1 Joint grade I gentle posterior capsule stretch and distraction withhip flexed Comments treatment was gentle due to pts joint hypermobility. Pt tolerated well with no reports of pain Manual Techniques MWM Type MWM lateral hip capsule stretch Comments lateral glide with belt with gentle hip ER manual iliopsoas stretch Comments in sidelying positions and aldo position today, also worked on ITB stretching in sidelying positions PT-OP-R Modalities Start: 02/21/20 17:51 Freq: Status: Active Protocol: Document 03/04/20 17:57 [facility] (Rec: 03/04/20 17:57 [facility] [email or web address]) Ultrasound Therapy Treatment left ITB proximal Treatment Duration (minutes) 8 Patient Position Sidelying Coupling Medium Ultrasound Gel Applicator Size (cm2) 5 Frequency Setting (mHz) 1 Duty Cycle 100% Intensity Setting (w/cm2) 1.5 PT-OP-T Assessment and Plan Start: 02/14/20 14:41 Freq: Status: Active Protocol: Document 03/20/20 11:15 [facility] (Rec: 03/20/20 12:55 [facility] [email or web address]) Physical Therapy Assessment Assessment Summary Assessment still limited hip ER but working on trying to increase this. Maura does feel like she is gaining more flexiblity overall just still tight in ER. COntinue working in the iliopsoas and iliacus as this area is very tight and guarded Physical Therapy Plan Frequency and Duration Frequency of Treatment 2x/Week Duration of Treatment 8 Plan of Care Start Date 02/14/20 Plan of Care End Date 04/10/20 Next Visit Focus/Plan Next Note Type Treatment Note Next Visit Plan assess work on the groin and iliacus next visit
--- NOTE | 2020-03-24 10:30 | PT-OP ANOTE ---
Pt cancelled today's appt due to bad weather and road conditions.
--- NOTE | 2020-03-26 13:29 | PT.OTN ---
Current Diagnoses Other bursitis of hip, left hip (03/26/20) Physical Therapy Treatment Note PT-OP-A Visit Information Start: 02/14/20 14:41 Freq: Status: Active Protocol: Document 03/26/20 13:23 [facility] (Rec: 03/26/20 13:29 [facility] [email or web address]) Out-Patient Physical Therapy Visit Information Visit Information Visit Type Treatment Note Visit Start Time 12:00 Visit Stop Time 12:45 Total Visit Minutes 45 Visit Number 9 PT-OP-B Current Condition Start: 02/14/20 14:41 Freq: Status: Active Protocol: Document 02/14/20 14:44 [facility] (Rec: 02/14/20 16:33 [facility] [id number]) Current Condition History of Current Condition Onset Date July 2019 Current Complaints left lateral hip and knee pain , hip pain with hills and sleeping left side History of Current Condition 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 Has a history of hip bursitis. This new hip pain felt different to her. It started in July and by August she was more painful. She had been walking a lot of hills and needed to stop. Pain is lateral and it goes to the top of her knee. She also notes her knee cap will tend to sublux. She does a lot of walking and will get pain down the front of her thigh. 2015 started to notice some stiffness, now she cant even sit cross legged on the floor any more due to her left hip. Sideways motion is painful. She feels the hills brought her pain on. 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 Treatment Goals Patient/Caregiver Goals Pt would be able to return to standing from a squat and be able to sit cross legged on the floor without pain. She would also like to be able to walk uphills without pain Prior Functional Status Baseline Function- ADL's Independent Baseline Function- Mobility Independent Baseline Function- Gait was able to ambulate hills prior to July Current Functional Impairments (Reported) Functional Limitations- Mobility/Gait pain walking hills, limitations in hip mobility especially with hip ER and sitting crosslegged on the floor. PT-OP-C Subjective Start: 02/14/20 14:41 Freq: Status: Active Protocol: Document 03/26/20 12:04 [facility] (Rec: 03/26/20 12:08 [facility] [id number]) OP-PT Subjective Patient Comments Patient Comments pt re[prts sat and and tuesday after shoveling snow she was really painful. She felt pain in the SI joint. Things feel more normal now. SHe has been doing all her stretches PT-OP-F Manual Assessment Start: 02/14/20 14:41 Freq: Status: Active Protocol: Document 02/14/20 14:30 [facility] (Rec: 02/17/20 14:12 [facility] [email or web address]) Manual Assessments Soft Tissue Assessment Soft Tissue Mobility Assessment tightness in the ITB and iliopsoas fascial tissue L>R, adductor tissue B Joint Mobility Assessment Joint Mobility Assessment decreased anterior joint mobility of the left hip for hip ER PT-OP-J Posture/Palpation/Skin Start: 02/14/20 14:41 Freq: Status: Active Protocol: Document 02/14/20 14:30 [facility] (Rec: 02/17/20 14:12 [facility] [email or web address]) Palpation Assessment Location left lateral hip, greater trochanter Palpation Location left lateral hip, greater trochanter Palpation Findings Tenderness Palpation Details tenderness on the left lateral hip in the proximity of the bursa PT-OP-K Range of Motion Start: 02/14/20 14:41 Freq: Status: Active Protocol: Document 02/14/20 14:30 [facility] (Rec: 02/17/20 14:12 [facility] [email or web address]) Hip Goniometric Range of Motion Hip left Testing Position Supine Flexion w/Knee Flexed 115 Straight Leg Raise 85 Extension 0 Abduction 20 Internal Rotation 15 External Rotation 5 Comments pt is limited in hip ER on the left as compared to the right . She is limited in hip extension B with + aldo test Hip ROM Limitations Hip ROM Limitations Soft Tissue Tightness Comments tightness in the ITB and iliopsoas limits full hip extension and hip ER PT-OP-Q Treatments Start: 02/14/20 14:41 Freq: Status: Active Protocol: Document 03/26/20 13:23 [facility] (Rec: 03/26/20 13:29 [facility] [email or web address]) Therapeutic Exercises Supine Exercises bilateral hip ER without band Supine Exercise Name bilateral hip ER without band Reps/Minutes x 20 adductor stretch with strap Reps/Minutes hold 1-2 min ITB stretch with strap Supine Exercise Name ITB stretch with strap iliopsoas stretch in supine Side left Reps/Minutes hold 30 sec to 1 min Comments aldo test position Manual Therapy Treatment Soft Tissue Mobilization adductor release Body Location left adductor release left iliacus MFR Body Location left iliacus MFR Comments pt has history of hysterectomy and did have adhesions inbetween her uterus and bladder. MFR ITB, quad on the left Body Location ITB, Quad, iliposoas Comments tightness is slowly decreasing , moved up to the anterior hip to release iliopsoas attachemnts Joint Mobilizations 1 Joint grade I gentle posterior capsule stretch and distraction withhip flexed Comments treatment was gentle due to pts joint hypermobility. Pt tolerated well with no reports of pain PT-OP-R Modalities Start: 02/21/20 17:51 Freq: Status: Active Protocol: Document 03/04/20 17:57 [facility] (Rec: 03/04/20 17:57 [facility] [email or web address]) Ultrasound Therapy Treatment left ITB proximal Treatment Duration (minutes) 8 Patient Position Sidelying Coupling Medium Ultrasound Gel Applicator Size (cm2) 5 Frequency Setting (mHz) 1 Duty Cycle 100% Intensity Setting (w/cm2) 1.5 PT-OP-T Assessment and Plan Start: 02/14/20 14:41 Freq: Status: Active Protocol: Document 03/26/20 13:23 [facility] (Rec: 03/26/20 13:29 [facility] [email or web address]) Physical Therapy Assessment Assessment Summary Assessment ITB was tighter today as pt had been shoveling snow. I added in hip roll outs and adductor stretch Physical Therapy Plan Frequency and Duration Frequency of Treatment 2x/Week Duration of Treatment 8 Plan of Care Start Date 02/14/20 Plan of Care End Date 04/10/20 Therapeutic Interventions Therapeutic Interventions Home Exercise Program,Manual Therapy,Patient/Caregiver Education,Self-Care/Home Management,Soft Tissue Mobilization,Therapeutic Exercises Next Visit Focus/Plan Next Note Type Treatment Note Next Visit Plan continue to work at improving hip ROM and flexibility
--- NOTE | 2020-04-01 16:59 | PT.OTN ---
Current Diagnoses Other bursitis of hip, left hip (04/01/20) Physical Therapy Treatment Note PT-OP-A Visit Information Start: 02/14/20 14:41 Freq: Status: Active Protocol: Document 04/01/20 11:16 [facility] (Rec: 04/01/20 11:17 [facility] [id number]) Out-Patient Physical Therapy Visit Information Visit Information Visit Type Treatment Note Visit Start Time 11:15 Visit Stop Time 12:00 Total Visit Minutes 45 Visit Number 10 PT-OP-B Current Condition Start: 02/14/20 14:41 Freq: Status: Active Protocol: Document 02/14/20 14:44 [facility] (Rec: 02/14/20 16:33 [facility] [id number]) Current Condition History of Current Condition Onset Date July 2019 Current Complaints left lateral hip and knee pain , hip pain with hills and sleeping left side History of Current Condition 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 Has a history of hip bursitis. This new hip pain felt different to her. It started in July and by August she was more painful. She had been walking a lot of hills and needed to stop. Pain is lateral and it goes to the top of her knee. She also notes her knee cap will tend to sublux. She does a lot of walking and will get pain down the front of her thigh. 2015 started to notice some stiffness, now she cant even sit cross legged on the floor any more due to her left hip. Sideways motion is painful. She feels the hills brought her pain on. 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 Treatment Goals Patient/Caregiver Goals Pt would be able to return to standing from a squat and be able to sit cross legged on the floor without pain. She would also like to be able to walk uphills without pain Prior Functional Status Baseline Function- ADL's Independent Baseline Function- Mobility Independent Baseline Function- Gait was able to ambulate hills prior to July Current Functional Impairments (Reported) Functional Limitations- Mobility/Gait pain walking hills, limitations in hip mobility especially with hip ER and sitting crosslegged on the floor. PT-OP-C Subjective Start: 02/14/20 14:41 Freq: Status: Active Protocol: Document 04/01/20 11:15 [facility] (Rec: 04/01/20 11:23 [facility] [id number]) OP-PT Subjective Patient Comments Patient Comments Did the [place] and went a little over 2 miles but did wear a pair of shoes that she doesn't wear normally for walks. PT-OP-F Manual Assessment Start: 02/14/20 14:41 Freq: Status: Active Protocol: Document 02/14/20 14:30 [facility] (Rec: 02/17/20 14:12 [facility] [email or web address]) Manual Assessments Soft Tissue Assessment Soft Tissue Mobility Assessment tightness in the ITB and iliopsoas fascial tissue L>R, adductor tissue B Joint Mobility Assessment Joint Mobility Assessment decreased anterior joint mobility of the left hip for hip ER PT-OP-J Posture/Palpation/Skin Start: 02/14/20 14:41 Freq: Status: Active Protocol: Document 02/14/20 14:30 [facility] (Rec: 02/17/20 14:12 [facility] [email or web address]) Palpation Assessment Location left lateral hip, greater trochanter Palpation Location left lateral hip, greater trochanter Palpation Findings Tenderness Palpation Details tenderness on the left lateral hip in the proximity of the bursa PT-OP-K Range of Motion Start: 02/14/20 14:41 Freq: Status: Active Protocol: Document 02/14/20 14:30 [facility] (Rec: 02/17/20 14:12 [facility] [email or web address]) Hip Goniometric Range of Motion Hip left Testing Position Supine Flexion w/Knee Flexed 115 Straight Leg Raise 85 Extension 0 Abduction 20 Internal Rotation 15 External Rotation 5 Comments pt is limited in hip ER on the left as compared to the right . She is limited in hip extension B with + aldo test Hip ROM Limitations Hip ROM Limitations Soft Tissue Tightness Comments tightness in the ITB and iliopsoas limits full hip extension and hip ER PT-OP-Q Treatments Start: 02/14/20 14:41 Freq: Status: Active Protocol: Document 04/01/20 11:43 [facility] (Rec: 04/01/20 11:44 [facility] [id number]) Therapeutic Exercises Supine Exercises supine roll outs Side bilateral Reps/Minutes 3 x 10 Sidelying Exercises clam shell exercise Reps/Minutes 3x 10 reps Other Exercises modified pigeon pose Reps/Minutes 1-2 reps holding 30-60 sec Manual Therapy Treatment Soft Tissue Mobilization left iliacus MFR Body Location left iliacus MFR Comments pt has history of hysterectomy and did have adhesions inbetween her uterus and bladder. MFR ITB, quad on the left Body Location ITB, Quad, iliposoas Comments tightness is slowly decreasing , moved up to the anterior hip to release iliopsoas attachemnts Joint Mobilizations 1 Joint grade I gentle posterior capsule stretch and distraction withhip flexed Comments treatment was gentle due to pts joint hypermobility. Pt tolerated well with no reports of pain PT-OP-R Modalities Start: 02/21/20 17:51 Freq: Status: Active Protocol: Document 03/04/20 17:57 [facility] (Rec: 03/04/20 17:57 [facility] [email or web address]) Ultrasound Therapy Treatment left ITB proximal Treatment Duration (minutes) 8 Patient Position Sidelying Coupling Medium Ultrasound Gel Applicator Size (cm2) 5 Frequency Setting (mHz) 1 Duty Cycle 100% Intensity Setting (w/cm2) 1.5 PT-OP-T Assessment and Plan Start: 02/14/20 14:41 Freq: Status: Active Protocol: Document 04/01/20 16:57 [facility] (Rec: 04/01/20 16:59 [facility] [email or web address]) Physical Therapy Assessment Assessment Summary Assessment trial of modified pigeon pose today and Maura tolerated this well. She had more hip ER following treatment today. I also added in clam shells and hip Rollout with the band for ER Physical Therapy Plan Frequency and Duration Frequency of Treatment 2x/Week Duration of Treatment 8 Plan of Care Start Date 02/14/20 Plan of Care End Date 04/10/20 Therapeutic Interventions Therapeutic Interventions Home Exercise Program,Manual Therapy,Patient/Caregiver Education,Self-Care/Home Management,Soft Tissue Mobilization,Therapeutic Exercises Next Visit Focus/Plan Next Note Type Progress Note Next Visit Plan reassess hip ROM and strength next visit, review pigeon pose
--- NOTE | 2020-04-03 17:05 | PT.OTN ---
Current Diagnoses Other bursitis of hip, left hip (04/08/20) Physical Therapy Treatment Note PT-OP-A Visit Information Start: 02/14/20 14:41 Freq: Status: Active Protocol: Document 04/03/20 11:15 [facility] (Rec: 04/10/20 17:03 [facility] [email or web address]) Out-Patient Physical Therapy Visit Information Visit Information Visit Type Treatment Note Visit Start Time 11:15 Visit Stop Time 12:00 Total Visit Minutes 45 Visit Number 11 PT-OP-B Current Condition Start: 02/14/20 14:41 Freq: Status: Active Protocol: Document 02/14/20 14:44 [facility] (Rec: 02/14/20 16:33 [facility] [id number]) Current Condition History of Current Condition Onset Date July 2019 Current Complaints left lateral hip and knee pain , hip pain with hills and sleeping left side History of Current Condition 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 Has a history of hip bursitis. This new hip pain felt different to her. It started in July and by August she was more painful. She had been walking a lot of hills and needed to stop. Pain is lateral and it goes to the top of her knee. She also notes her knee cap will tend to sublux. She does a lot of walking and will get pain down the front of her thigh. 2015 started to notice some stiffness, now she cant even sit cross legged on the floor any more due to her left hip. Sideways motion is painful. She feels the hills brought her pain on. 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 Treatment Goals Patient/Caregiver Goals Pt would be able to return to standing from a squat and be able to sit cross legged on the floor without pain. She would also like to be able to walk uphills without pain Prior Functional Status Baseline Function- ADL's Independent Baseline Function- Mobility Independent Baseline Function- Gait was able to ambulate hills prior to July Current Functional Impairments (Reported) Functional Limitations- Mobility/Gait pain walking hills, limitations in hip mobility especially with hip ER and sitting crosslegged on the floor. PT-OP-C Subjective Start: 02/14/20 14:41 Freq: Status: Active Protocol: Document 04/03/20 11:15 [facility] (Rec: 04/10/20 17:03 [facility] [email or web address]) OP-PT Subjective Patient Comments Patient Comments pt notes she will have a day or two of discomfort and then is doing better. She notes overall improvement Patient Reported Progress Improving PT-OP-F Manual Assessment Start: 02/14/20 14:41 Freq: Status: Active Protocol: Document 02/14/20 14:30 [facility] (Rec: 02/17/20 14:12 [facility] [email or web address]) Manual Assessments Soft Tissue Assessment Soft Tissue Mobility Assessment tightness in the ITB and iliopsoas fascial tissue L>R, adductor tissue B Joint Mobility Assessment Joint Mobility Assessment decreased anterior joint mobility of the left hip for hip ER PT-OP-J Posture/Palpation/Skin Start: 02/14/20 14:41 Freq: Status: Active Protocol: Document 02/14/20 14:30 [facility] (Rec: 02/17/20 14:12 [facility] [email or web address]) Palpation Assessment Location left lateral hip, greater trochanter Palpation Location left lateral hip, greater trochanter Palpation Findings Tenderness Palpation Details tenderness on the left lateral hip in the proximity of the bursa PT-OP-K Range of Motion Start: 02/14/20 14:41 Freq: Status: Active Protocol: Document 02/14/20 14:30 [facility] (Rec: 02/17/20 14:12 [facility] [email or web address]) Hip Goniometric Range of Motion Hip left Testing Position Supine Flexion w/Knee Flexed 115 Straight Leg Raise 85 Extension 0 Abduction 20 Internal Rotation 15 External Rotation 5 Comments pt is limited in hip ER on the left as compared to the right . She is limited in hip extension B with + aldo test Hip ROM Limitations Hip ROM Limitations Soft Tissue Tightness Comments tightness in the ITB and iliopsoas limits full hip extension and hip ER PT-OP-Q Treatments Start: 02/14/20 14:41 Freq: Status: Active Protocol: Document 04/03/20 11:15 [facility] (Rec: 04/10/20 17:03 [facility] [email or web address]) Therapeutic Exercises Supine Exercises supine roll outs Side bilateral Equipment Used level 1 theraband Reps/Minutes 3 x 10 Other Exercises modified pigeon pose Reps/Minutes 1-2 reps holding 30-60 sec Manual Therapy Treatment Soft Tissue Mobilization left quadratus lumborum release Body Location left QL Body Position right sidelying QL release left iliacus MFR Body Location left iliacus MFR Comments pt has history of hysterectomy and did have adhesions inbetween her uterus and bladder. MFR ITB, quad on the left Body Location ITB, Quad, iliposoas Comments tightness is slowly decreasing , moved up to the anterior hip to release iliopsoas attachemnts PT-OP-R Modalities Start: 02/21/20 17:51 Freq: Status: Active Protocol: Document 03/04/20 17:57 [facility] (Rec: 03/04/20 17:57 [facility] [email or web address]) Ultrasound Therapy Treatment left ITB proximal Treatment Duration (minutes) 8 Patient Position Sidelying Coupling Medium Ultrasound Gel Applicator Size (cm2) 5 Frequency Setting (mHz) 1 Duty Cycle 100% Intensity Setting (w/cm2) 1.5 PT-OP-T Assessment and Plan Start: 02/14/20 14:41 Freq: Status: Active Protocol: Document 04/03/20 11:15 [facility] (Rec: 04/10/20 17:03 [facility] [email or web address]) Physical Therapy Plan Frequency and Duration Frequency of Treatment 2x/Week Duration of Treatment 8 Plan of Care Start Date 02/14/20 Plan of Care End Date 04/10/20 Next Visit Focus/Plan Next Note Type Treatment Note Next Visit Plan continue working on improving hip ROM and decreasing pain, work on hip ER stabilization
--- NOTE | 2020-04-08 18:14 | PT.OTN ---
Current Diagnoses Other bursitis of hip, left hip (04/08/20) Physical Therapy Treatment Note PT-OP-A Visit Information Start: 02/14/20 14:41 Freq: Status: Active Protocol: Document 04/08/20 13:01 [facility] (Rec: 04/08/20 13:05 [facility] [id number]) Out-Patient Physical Therapy Visit Information Visit Information Visit Type Treatment Note Visit Start Time 13:00 Visit Stop Time 13:45 Total Visit Minutes 45 Visit Number 11 PT-OP-B Current Condition Start: 02/14/20 14:41 Freq: Status: Active Protocol: Document 02/14/20 14:44 [facility] (Rec: 02/14/20 16:33 [facility] [id number]) Current Condition History of Current Condition Onset Date July 2019 Current Complaints left lateral hip and knee pain , hip pain with hills and sleeping left side History of Current Condition 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 Has a history of hip bursitis. This new hip pain felt different to her. It started in July and by August she was more painful. She had been walking a lot of hills and needed to stop. Pain is lateral and it goes to the top of her knee. She also notes her knee cap will tend to sublux. She does a lot of walking and will get pain down the front of her thigh. 2015 started to notice some stiffness, now she cant even sit cross legged on the floor any more due to her left hip. Sideways motion is painful. She feels the hills brought her pain on. 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 Treatment Goals Patient/Caregiver Goals Pt would be able to return to standing from a squat and be able to sit cross legged on the floor without pain. She would also like to be able to walk uphills without pain Prior Functional Status Baseline Function- ADL's Independent Baseline Function- Mobility Independent Baseline Function- Gait was able to ambulate hills prior to July Current Functional Impairments (Reported) Functional Limitations- Mobility/Gait pain walking hills, limitations in hip mobility especially with hip ER and sitting crosslegged on the floor. PT-OP-C Subjective Start: 02/14/20 14:41 Freq: Status: Active Protocol: Document 04/08/20 13:01 [facility] (Rec: 04/08/20 13:05 [facility] [id number]) OP-PT Subjective Patient Comments Patient Comments pt notes she was stiff and sore in her bursa in the glut but deep. She reports she is able to sit more comfortably now. Patient Reported Progress Improving PT-OP-F Manual Assessment Start: 02/14/20 14:41 Freq: Status: Active Protocol: Document 02/14/20 14:30 [facility] (Rec: 02/17/20 14:12 [facility] [email or web address]) Manual Assessments Soft Tissue Assessment Soft Tissue Mobility Assessment tightness in the ITB and iliopsoas fascial tissue L>R, adductor tissue B Joint Mobility Assessment Joint Mobility Assessment decreased anterior joint mobility of the left hip for hip ER PT-OP-J Posture/Palpation/Skin Start: 02/14/20 14:41 Freq: Status: Active Protocol: Document 02/14/20 14:30 [facility] (Rec: 02/17/20 14:12 [facility] [email or web address]) Palpation Assessment Location left lateral hip, greater trochanter Palpation Location left lateral hip, greater trochanter Palpation Findings Tenderness Palpation Details tenderness on the left lateral hip in the proximity of the bursa PT-OP-K Range of Motion Start: 02/14/20 14:41 Freq: Status: Active Protocol: Document 02/14/20 14:30 [facility] (Rec: 02/17/20 14:12 [facility] [email or web address]) Hip Goniometric Range of Motion Hip left Testing Position Supine Flexion w/Knee Flexed 115 Straight Leg Raise 85 Extension 0 Abduction 20 Internal Rotation 15 External Rotation 5 Comments pt is limited in hip ER on the left as compared to the right . She is limited in hip extension B with + aldo test Hip ROM Limitations Hip ROM Limitations Soft Tissue Tightness Comments tightness in the ITB and iliopsoas limits full hip extension and hip ER PT-OP-Q Treatments Start: 02/14/20 14:41 Freq: Status: Active Protocol: Document 04/08/20 18:09 [facility] (Rec: 04/08/20 18:13 [facility] [email or web address]) Manual Therapy Treatment Soft Tissue Mobilization left quadratus lumborum release Body Location left QL Body Position right sidelying QL release MFR ITB, quad on the left Body Location ITB, Quad, iliposoas Comments tightness is slowly decreasing , moved up to the anterior hip to release iliopsoas attachemnts Joint Mobilizations 1 Joint grade I gentle posterior capsule stretch and distraction withhip flexed Comments treatment was gentle due to pts joint hypermobility. Pt tolerated well with no reports of pain Manual Techniques MWM Type MWM lateral hip capsule stretch Comments lateral glide with belt with gentle hip ER PT-OP-R Modalities Start: 02/21/20 17:51 Freq: Status: Active Protocol: Document 03/04/20 17:57 [facility] (Rec: 03/04/20 17:57 [facility] [id number]) Ultrasound Therapy Treatment left ITB proximal Treatment Duration (minutes) 8 Patient Position Sidelying Coupling Medium Ultrasound Gel Applicator Size (cm2) 5 Frequency Setting (mHz) 1 Duty Cycle 100% Intensity Setting (w/cm2) 1.5 PT-OP-T Assessment and Plan Start: 02/14/20 14:41 Freq: Status: Active Protocol: Document 04/08/20 18:09 [facility] (Rec: 04/08/20 18:13 [facility] [email or web address]) Physical Therapy Assessment Goals tightness of the ITB, Quadriceps, iliopsoas L Impairment Tightness of the ITB, quadriceps, iliopsoas on the left Design Director Goal (LTG) Decrease soft tissue tightness with manual therapy techniques and stretches. Pt is no longer tender to palpation over the greater trochanter and she has a negative aldo test. LTG Duration 8 weeks Decreased left hip ROM into ER Impairment Decreased left hip ROM into hip ER Short Term Goal (STG) Maura is educated on specific stretches to lengthen her ITB and iliopsoas to improved anterior glide of the hip and improve hip ER. She is able to improve hip ER to 10 degrees or better. STG Duration 4 weeks [facility] Goal (LTG) Maura is able to return to sitting on the floor cross legged for meditation activities without increased pain. LTG Duration 8 weeks left lateral hip pain rated 3-6/10 Impairment Left lateral hip pain rated 3- 6/10 Design Director Goal (LTG) Maura is able to decrease pain in her hips to 2 or less and she is able to return to walking including hills without increased complaints of pain. Three Impairment Strength Short Term Goal (STG) Pt gross LE MMT to 5/5 STG Duration 08/03/17 Design Director Goal (LTG) Pt gross UE MMT to 5/5 LTG Duration 08/24/17 Two Impairment HEP Short Term Goal (STG) Pt to have an appropriate land -based HEP and perform it at least 80% of the recommended time STG Duration 08/03/17 Design Director Goal (LTG) Pt to have an appropriate aquatic-based HEP LTG Duration 08/24/17 One Impairment Activity Limitations [facility] Goal (LTG) Pt to report return to biking three miles with no impact on her the following day LTG Duration 08/24/17 Assessment Summary Assessment Maura did have more hip ER today with MWM, I also started working in the region on the left side. She is making progress with improved hip ROM. She is working on stretches 2 times per day Physical Therapy Plan Frequency and Duration Frequency of Treatment 2x/Week Duration of Treatment 8 Plan of Care Start Date 02/14/20 Plan of Care End Date 04/10/20 Therapeutic Interventions Therapeutic Interventions Home Exercise Program,Manual Therapy,Patient/Caregiver Education,Self-Care/Home Management,Soft Tissue Mobilization,Therapeutic Exercises Next Visit Focus/Plan Next Note Type Progress Note Next Visit Plan reassess hip ROM and strength next visit, review howard lopez
--- NOTE | 2020-04-15 18:04 | PT.OTN ---
Current Diagnoses Other bursitis of hip, left hip (04/15/20) Physical Therapy Treatment Note PT-OP-A Visit Information Start: 02/14/20 14:41 Freq: Status: Active Protocol: Document 04/15/20 13:04 [facility] (Rec: 04/15/20 13:10 [facility] [id number]) Out-Patient Physical Therapy Visit Information Visit Information Visit Type Treatment Note Visit Start Time 13:00 Visit Stop Time 13:45 Total Visit Minutes 45 Visit Number 12 PT-OP-B Current Condition Start: 02/14/20 14:41 Freq: Status: Active Protocol: Document 02/14/20 14:44 [facility] (Rec: 02/14/20 16:33 [facility] [id number]) Current Condition History of Current Condition Onset Date July 2019 Current Complaints left lateral hip and knee pain , hip pain with hills and sleeping left side History of Current Condition 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 Has a history of hip bursitis. This new hip pain felt different to her. It started in July and by August she was more painful. She had been walking a lot of hills and needed to stop. Pain is lateral and it goes to the top of her knee. She also notes her knee cap will tend to sublux. She does a lot of walking and will get pain down the front of her thigh. 2015 started to notice some stiffness, now she cant even sit cross legged on the floor any more due to her left hip. Sideways motion is painful. She feels the hills brought her pain on. 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 Treatment Goals Patient/Caregiver Goals Pt would be able to return to standing from a squat and be able to sit cross legged on the floor without pain. She would also like to be able to walk uphills without pain Prior Functional Status Baseline Function- ADL's Independent Baseline Function- Mobility Independent Baseline Function- Gait was able to ambulate hills prior to July Current Functional Impairments (Reported) Functional Limitations- Mobility/Gait pain walking hills, limitations in hip mobility especially with hip ER and sitting crosslegged on the floor. PT-OP-C Subjective Start: 02/14/20 14:41 Freq: Status: Active Protocol: Document 04/15/20 13:04 [facility] (Rec: 04/15/20 13:10 [facility] [id number]) OP-PT Subjective Patient Comments Patient Comments Able [place] [facility]. Pts goal is to get into a crossed legged sitting position without it hurting. She would also be able to hike all the way around the [facility] without pain the next day . She reports she is able to bend he knee to stretch her quad much better now. Patient Reported Progress Improving PT-OP-F Manual Assessment Start: 02/14/20 14:41 Freq: Status: Active Protocol: Document 02/14/20 14:30 [facility] (Rec: 02/17/20 14:12 [facility] [email or web address]) Manual Assessments Soft Tissue Assessment Soft Tissue Mobility Assessment tightness in the ITB and iliopsoas fascial tissue L>R, adductor tissue B Joint Mobility Assessment Joint Mobility Assessment decreased anterior joint mobility of the left hip for hip ER PT-OP-J Posture/Palpation/Skin Start: 02/14/20 14:41 Freq: Status: Active Protocol: Document 02/14/20 14:30 [facility] (Rec: 02/17/20 14:12 [facility] [email or web address]) Palpation Assessment Location left lateral hip, greater trochanter Palpation Location left lateral hip, greater trochanter Palpation Findings Tenderness Palpation Details tenderness on the left lateral hip in the proximity of the bursa PT-OP-K Range of Motion Start: 02/14/20 14:41 Freq: Status: Active Protocol: Document 04/15/20 17:58 [facility] (Rec: 04/15/20 17:59 [facility] [email or web address]) Hip Goniometric Range of Motion Hip left Flexion w/Knee Flexed 115 Straight Leg Raise 85 Extension 5 Abduction 20 Internal Rotation 15 External Rotation 10 Comments pt has shown changes with improved hip ER and hip extension PT-OP-Q Treatments Start: 02/14/20 14:41 Freq: Status: Active Protocol: Document 04/15/20 17:52 [facility] (Rec: 04/15/20 17:57 [facility] [email or web address]) Therapeutic Exercises Standing Exercises standing QL stretch Reps/Minutes 30-60 sec standing hip abduction Reps/Minutes 3 x 10 reps Manual Therapy Treatment Soft Tissue Mobilization adductor release Body Location left adductor release MFR ITB, quad on the left Body Location ITB, Quad, iliposoas Comments tightness is slowly decreasing , moved up to the anterior hip to release iliopsoas attachemnts Joint Mobilizations 1 Joint grade II gentle posterior capsule stretch and distraction withhip flexed Comments treatment was gentle due to pts joint hypermobility. Pt tolerated well with no reports of pain Manual Techniques MWM Type MWM lateral hip capsule stretch Comments lateral glide with belt with gentle hip ER PT-OP-R Modalities Start: 02/21/20 17:51 Freq: Status: Active Protocol: Document 03/04/20 17:57 [facility] (Rec: 03/04/20 17:57 [facility] [email or web address]) Ultrasound Therapy Treatment left ITB proximal Treatment Duration (minutes) 8 Patient Position Sidelying Coupling Medium Ultrasound Gel Applicator Size (cm2) 5 Frequency Setting (mHz) 1 Duty Cycle 100% Intensity Setting (w/cm2) 1.5 PT-OP-T Assessment and Plan Start: 02/14/20 14:41 Freq: Status: Active Protocol: Document 04/15/20 17:52 [facility] (Rec: 04/15/20 17:57 [facility] [email or web address]) Physical Therapy Assessment Goals tightness of the ITB, Quadriceps, iliopsoas L Impairment Tightness of the ITB, quadriceps, iliopsoas on the left Explosive Man Goal (LTG) Decrease soft tissue tightness with manual therapy techniques and stretches. Pt is no longer tender to palpation over the greater trochanter and she has a negative aldo test. good progress especially with improved iliopsoas length LTG Duration 8 weeks Decreased left hip ROM into ER Impairment Decreased left hip ROM into hip ER Short Term Goal (STG) Maura is educated on specific stretches to lengthen her ITB and iliopsoas to improved anterior glide of the hip and improve hip ER. She is able to improve hip ER to 10 degrees or better. excellent progress STG Duration 4 weeks Explosive Man Goal (LTG) Maura is able to return to sitting on the floor cross legged for meditation activities without increased pain. Some progress LTG Duration 8 weeks left lateral hip pain rated 3-6/10 Impairment Left lateral hip pain rated 3- 6/10 Explosive Man Goal (LTG) Maura is able to decrease pain in her hips to 2 or less and she is able to return to walking including hills without increased complaints of pain. Some progress Assessment Summary Assessment Maura has been making steady progress with PT and is showing improved hip ROM into extension as well as hip ER. She is slowly increasing her walking and hiking. She hasn' t yet done a lot of hills which she feels initially aggravated her symptoms. She is not yet able to sit fully cross legged but feels she is making progress so she would like to continue PT. Physical Therapy Plan Frequency and Duration Frequency of Treatment 2x/Week Duration of Treatment 8 Plan of Care Start Date 04/15/20 Plan of Care End Date 06/10/20 Therapeutic Interventions Therapeutic Interventions Home Exercise Program,Manual Therapy,Patient/Caregiver Education,Self-Care/Home Management,Soft Tissue Mobilization,Therapeutic Exercises
--- NOTE | 2020-04-15 18:04 | PT.OPPOC ---
Physical, Occupational & Speech Therapy At [facility] Current Diagnoses Other bursitis of hip, left hip (04/15/20) Visit Care Team Role Provider Type Syed Perez MD Attending Provider Physician Primary Care Provider Referring Provider Specialty: Internal Medicine Address: [address] [place] [address], [address], [place], [address] Email: [email or web address] Plan Of Care PT-OP-T Assessment and Plan Start: 02/14/20 14:41 Freq: Status: Active Protocol: Document 04/15/20 17:52 [facility] (Rec: 04/15/20 17:57 [facility] [email or web address]) Physical Therapy Assessment Goals tightness of the ITB, Quadriceps, iliopsoas L Impairment Tightness of the ITB, quadriceps, iliopsoas on the left Curing Room Supervisor Goal (LTG) Decrease soft tissue tightness with manual therapy techniques and stretches. Pt is no longer tender to palpation over the greater trochanter and she has a negative aldo test. good progress especially with improved iliopsoas length LTG Duration 8 weeks Decreased left hip ROM into ER Impairment Decreased left hip ROM into hip ER Short Term Goal (STG) Maura is educated on specific stretches to lengthen her ITB and iliopsoas to improved anterior glide of the hip and improve hip ER. She is able to improve hip ER to 10 degrees or better. excellent progress STG Duration 4 weeks Curing Room Supervisor Goal (LTG) Maura is able to return to sitting on the floor cross legged for meditation activities without increased pain. Some progress LTG Duration 8 weeks left lateral hip pain rated 3-6/10 Impairment Left lateral hip pain rated 3- 6/10 Longterm Goal (LTG) Maura is able to decrease pain in her hips to 2 or less and she is able to return to walking including hills without increased complaints of pain. Some progress Assessment Summary Assessment Maura has been making steady progress with PT and is showing improved hip ROM into extension as well as hip ER. She is slowly increasing her walking and hiking. She hasn' t yet done a lot of hills which she feels initially aggravated her symptoms. She is not yet able to sit fully cross legged but feels she is making progress so she would like to continue PT. Physical Therapy Plan Frequency and Duration Frequency of Treatment 2x/Week Duration of Treatment 8 Plan of Care Start Date 04/15/20 Plan of Care End Date 06/10/20 Therapeutic Interventions Therapeutic Interventions Home Exercise Program,Manual Therapy,Patient/Caregiver Education,Self-Care/Home Management,Soft Tissue Mobilization,Therapeutic Exercises Plan of Care Dates Plan of Care Start Date 04/15/20 Plan of Care End Date 06/10/20 Electronically Signed by: Norah Yu, PT 04/15/20 [id number] Please Sign and Return: I have reviewed this Plan of Care and certify that the skilled therapy services above are required to meet the patient?s needs. Physician Signature Date Printed Name and Credentials Clinical Instructor Signature Printed Name and Credentials
--- NOTE | 2020-04-22 18:09 | PT.OTN ---
Current Diagnoses Other bursitis of hip, left hip (04/22/20) Physical Therapy Treatment Note PT-OP-A Visit Information Start: 02/14/20 14:41 Freq: Status: Active Protocol: Document 04/22/20 18:06 [facility] (Rec: 04/22/20 18:08 [facility] [id number]) Out-Patient Physical Therapy Visit Information Visit Information Visit Type Treatment Note Visit Start Time 13:05 Visit Stop Time 13:45 Total Visit Minutes 45 Visit Number 13 PT-OP-B Current Condition Start: 02/14/20 14:41 Freq: Status: Active Protocol: Document 02/14/20 14:44 [facility] (Rec: 02/14/20 16:33 [facility] [id number]) Current Condition History of Current Condition Onset Date July 2019 Current Complaints left lateral hip and knee pain , hip pain with hills and sleeping left side History of Current Condition 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 Has a history of hip bursitis. This new hip pain felt different to her. It started in July and by August she was more painful. She had been walking a lot of hills and needed to stop. Pain is lateral and it goes to the top of her knee. She also notes her knee cap will tend to sublux. She does a lot of walking and will get pain down the front of her thigh. 2015 started to notice some stiffness, now she cant even sit cross legged on the floor any more due to her left hip. Sideways motion is painful. She feels the hills brought her pain on. 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 Treatment Goals Patient/Caregiver Goals Pt would be able to return to standing from a squat and be able to sit cross legged on the floor without pain. She would also like to be able to walk uphills without pain Prior Functional Status Baseline Function- ADL's Independent Baseline Function- Mobility Independent Baseline Function- Gait was able to ambulate hills prior to July Current Functional Impairments (Reported) Functional Limitations- Mobility/Gait pain walking hills, limitations in hip mobility especially with hip ER and sitting crosslegged on the floor. PT-OP-C Subjective Start: 02/14/20 14:41 Freq: Status: Active Protocol: Document 04/22/20 13:07 [facility] (Rec: 04/22/20 13:08 [facility] [id number]) OP-PT Subjective Patient Comments Patient Comments has been continueing to do her exercises, she did have to walk the [place] , feels acehy today PT-OP-F Manual Assessment Start: 02/14/20 14:41 Freq: Status: Active Protocol: Document 02/14/20 14:30 [facility] (Rec: 02/17/20 14:12 [facility] [email or web address]) Manual Assessments Soft Tissue Assessment Soft Tissue Mobility Assessment tightness in the ITB and iliopsoas fascial tissue L>R, adductor tissue B Joint Mobility Assessment Joint Mobility Assessment decreased anterior joint mobility of the left hip for hip ER PT-OP-J Posture/Palpation/Skin Start: 02/14/20 14:41 Freq: Status: Active Protocol: Document 02/14/20 14:30 [facility] (Rec: 02/17/20 14:12 [facility] [email or web address]) Palpation Assessment Location left lateral hip, greater trochanter Palpation Location left lateral hip, greater trochanter Palpation Findings Tenderness Palpation Details tenderness on the left lateral hip in the proximity of the bursa PT-OP-K Range of Motion Start: 02/14/20 14:41 Freq: Status: Active Protocol: Document 04/15/20 17:58 [facility] (Rec: 04/15/20 17:59 [facility] [email or web address]) Hip Goniometric Range of Motion Hip left Flexion w/Knee Flexed 115 Straight Leg Raise 85 Extension 5 Abduction 20 Internal Rotation 15 External Rotation 10 Comments pt has shown changes with improved hip ER and hip extension PT-OP-Q Treatments Start: 02/14/20 14:41 Freq: Status: Active Protocol: Document 04/22/20 13:00 [facility] (Rec: 04/22/20 13:48 [facility] [id number]) Therapeutic Exercises Supine Exercises bridges with hip Er Reps/Minutes 10-20 iliopsoas stretch in supine Side left Reps/Minutes hold 30 sec to 1 min Comments aldo test position Sidelying Exercises sidelying leg lifts and hip circles Reps/Minutes x 10 Other Exercises standing ITB stretch Reps/Minutes 60 sec Manual Therapy Treatment Soft Tissue Mobilization left quadratus lumborum release Body Location left QL Body Position right sidelying QL release MFR ITB, quad on the left Body Location ITB, Quad, iliposoas Comments tightness is slowly decreasing , moved up to the anterior hip to release iliopsoas attachemnts PT-OP-R Modalities Start: 02/21/20 17:51 Freq: Status: Active Protocol: Document 03/04/20 17:57 [facility] (Rec: 03/04/20 17:57 [facility] [id number]) Ultrasound Therapy Treatment left ITB proximal Treatment Duration (minutes) 8 Patient Position Sidelying Coupling Medium Ultrasound Gel Applicator Size (cm2) 5 Frequency Setting (mHz) 1 Duty Cycle 100% Intensity Setting (w/cm2) 1.5 PT-OP-T Assessment and Plan Start: 02/14/20 14:41 Freq: Status: Active Protocol: Document 04/22/20 18:06 [facility] (Rec: 04/22/20 18:08 [facility] [id number]) Physical Therapy Assessment Assessment Summary Assessment we worked on sidelying hip exercises and standing gluteus medius stability today. Maura is weaker on the left hip as compared to the right Physical Therapy Plan Frequency and Duration Frequency of Treatment 2x/Week Duration of Treatment 8 Plan of Care Start Date 04/15/20 Plan of Care End Date 06/10/20
--- NOTE | 2020-04-29 13:59 | PT.OTN ---
Current Diagnoses Other bursitis of hip, left hip (04/29/20) Physical Therapy Treatment Note PT-OP-A Visit Information Start: 02/14/20 14:41 Freq: Status: Active Protocol: Document 04/29/20 13:02 [facility] (Rec: 04/29/20 13:59 [facility] [id number]) Out-Patient Physical Therapy Visit Information Visit Information Visit Type Treatment Note Visit Start Time 13:00 Visit Stop Time 13:45 Total Visit Minutes 45 Visit Number 14 PT-OP-B Current Condition Start: 02/14/20 14:41 Freq: Status: Active Protocol: Document 02/14/20 14:44 [facility] (Rec: 02/14/20 16:33 [facility] [id number]) Current Condition History of Current Condition Onset Date July 2019 Current Complaints left lateral hip and knee pain , hip pain with hills and sleeping left side History of Current Condition 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 Has a history of hip bursitis. This new hip pain felt different to her. It started in July and by August she was more painful. She had been walking a lot of hills and needed to stop. Pain is lateral and it goes to the top of her knee. She also notes her knee cap will tend to sublux. She does a lot of walking and will get pain down the front of her thigh. 2015 started to notice some stiffness, now she cant even sit cross legged on the floor any more due to her left hip. Sideways motion is painful. She feels the hills brought her pain on. 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 Treatment Goals Patient/Caregiver Goals Pt would be able to return to standing from a squat and be able to sit cross legged on the floor without pain. She would also like to be able to walk uphills without pain Prior Functional Status Baseline Function- ADL's Independent Baseline Function- Mobility Independent Baseline Function- Gait was able to ambulate hills prior to July Current Functional Impairments (Reported) Functional Limitations- Mobility/Gait pain walking hills, limitations in hip mobility especially with hip ER and sitting crosslegged on the floor. PT-OP-C Subjective Start: 02/14/20 14:41 Freq: Status: Active Protocol: Document 04/29/20 13:02 [facility] (Rec: 04/29/20 13:59 [facility] [id number]) OP-PT Subjective Patient Comments Patient Comments pt reports she has questions on some of the new exercises PT-OP-F Manual Assessment Start: 02/14/20 14:41 Freq: Status: Active Protocol: Document 02/14/20 14:30 [facility] (Rec: 02/17/20 14:12 [facility] [email or web address]) Manual Assessments Soft Tissue Assessment Soft Tissue Mobility Assessment tightness in the ITB and iliopsoas fascial tissue L>R, adductor tissue B Joint Mobility Assessment Joint Mobility Assessment decreased anterior joint mobility of the left hip for hip ER PT-OP-J Posture/Palpation/Skin Start: 02/14/20 14:41 Freq: Status: Active Protocol: Document 02/14/20 14:30 [facility] (Rec: 02/17/20 14:12 [facility] [email or web address]) Palpation Assessment Location left lateral hip, greater trochanter Palpation Location left lateral hip, greater trochanter Palpation Findings Tenderness Palpation Details tenderness on the left lateral hip in the proximity of the bursa PT-OP-K Range of Motion Start: 02/14/20 14:41 Freq: Status: Active Protocol: Document 04/15/20 17:58 [facility] (Rec: 04/15/20 17:59 [facility] [email or web address]) Hip Goniometric Range of Motion Hip left Flexion w/Knee Flexed 115 Straight Leg Raise 85 Extension 5 Abduction 20 Internal Rotation 15 External Rotation 10 Comments pt has shown changes with improved hip ER and hip extension PT-OP-Q Treatments Start: 02/14/20 14:41 Freq: Status: Active Protocol: Document 04/29/20 13:02 [facility] (Rec: 04/29/20 13:59 [facility] [id number]) Therapeutic Exercises Supine Exercises adductor stretch with strap Comments review of this stretch with opp knee bent today ITB stretch with strap Comments bend opp kne Sidelying Exercises sidelying leg lifts and hip circles Reps/Minutes x 10 each Standing Exercises standing QL stretch Reps/Minutes x 60 sec Other Exercises butterfly stretch Reps/Minutes 1-2 min Manual Therapy Treatment Soft Tissue Mobilization left quadratus lumborum release Body Location left QL Body Position right sidelying QL release left iliacus MFR Body Location left iliacus MFR Comments pt has history of hysterectomy and did have adhesions inbetween her uterus and bladder. Joint Mobilizations 1 Joint grade II gentle posterior capsule stretch and distraction withhip flexed Comments treatment was gentle due to pts joint hypermobility. Pt tolerated well with no reports of pain PT-OP-R Modalities Start: 02/21/20 17:51 Freq: Status: Active Protocol: Document 03/04/20 17:57 [facility] (Rec: 03/04/20 17:57 [facility] [email or web address]) Ultrasound Therapy Treatment left ITB proximal Treatment Duration (minutes) 8 Patient Position Sidelying Coupling Medium Ultrasound Gel Applicator Size (cm2) 5 Frequency Setting (mHz) 1 Duty Cycle 100% Intensity Setting (w/cm2) 1.5 PT-OP-T Assessment and Plan Start: 02/14/20 14:41 Freq: Status: Active Protocol: Document 04/29/20 13:02 [facility] (Rec: 04/29/20 13:59 [facility] [id number]) Physical Therapy Assessment Assessment Summary Assessment stretches for the ITB were reviewed today. I added in seated butterfly stretch for the groin and Maura tolerated this well Physical Therapy Plan Frequency and Duration Frequency of Treatment 2x/Week Duration of Treatment 8 Plan of Care Start Date 04/15/20 Plan of Care End Date 06/10/20 Therapeutic Interventions Therapeutic Interventions Home Exercise Program,Manual Therapy,Patient/Caregiver Education,Self-Care/Home Management,Soft Tissue Mobilization,Therapeutic Exercises Next Visit Focus/Plan Next Note Type Treatment Note Next Visit Plan reassess hip ROM and strength next visit, review howard lopez
--- NOTE | 2020-05-01 16:47 | PT.OTN ---
Current Diagnoses Other bursitis of hip, left hip (05/01/20) Physical Therapy Treatment Note PT-OP-A Visit Information Start: 02/14/20 14:41 Freq: Status: Active Protocol: Document 05/01/20 13:52 [facility] (Rec: 05/01/20 14:36 [facility] [id number]) Out-Patient Physical Therapy Visit Information Visit Information Visit Type Treatment Note Visit Start Time 13:52 Visit Stop Time 14:35 Total Visit Minutes 43 Visit Number 15 PT-OP-B Current Condition Start: 02/14/20 14:41 Freq: Status: Active Protocol: Document 02/14/20 14:44 [facility] (Rec: 02/14/20 16:33 [facility] [id number]) Current Condition History of Current Condition Onset Date July 2019 Current Complaints left lateral hip and knee pain , hip pain with hills and sleeping left side History of Current Condition 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 Has a history of hip bursitis. This new hip pain felt different to her. It started in July and by August she was more painful. She had been walking a lot of hills and needed to stop. Pain is lateral and it goes to the top of her knee. She also notes her knee cap will tend to sublux. She does a lot of walking and will get pain down the front of her thigh. 2015 started to notice some stiffness, now she cant even sit cross legged on the floor any more due to her left hip. Sideways motion is painful. She feels the hills brought her pain on. 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 Treatment Goals Patient/Caregiver Goals Pt would be able to return to standing from a squat and be able to sit cross legged on the floor without pain. She would also like to be able to walk uphills without pain Prior Functional Status Baseline Function- ADL's Independent Baseline Function- Mobility Independent Baseline Function- Gait was able to ambulate hills prior to July Current Functional Impairments (Reported) Functional Limitations- Mobility/Gait pain walking hills, limitations in hip mobility especially with hip ER and sitting crosslegged on the floor. PT-OP-C Subjective Start: 02/14/20 14:41 Freq: Status: Active Protocol: Document 05/01/20 13:52 [facility] (Rec: 05/01/20 16:47 [facility] [email or web address]) OP-PT Subjective Patient Comments Patient Comments Maura reports she is starting to try out some hills again. Patient Reported Progress Improving PT-OP-F Manual Assessment Start: 02/14/20 14:41 Freq: Status: Active Protocol: Document 02/14/20 14:30 [facility] (Rec: 02/17/20 14:12 [facility] [email or web address]) Manual Assessments Soft Tissue Assessment Soft Tissue Mobility Assessment tightness in the ITB and iliopsoas fascial tissue L>R, adductor tissue B Joint Mobility Assessment Joint Mobility Assessment decreased anterior joint mobility of the left hip for hip ER PT-OP-J Posture/Palpation/Skin Start: 02/14/20 14:41 Freq: Status: Active Protocol: Document 02/14/20 14:30 [facility] (Rec: 02/17/20 14:12 [facility] [email or web address]) Palpation Assessment Location left lateral hip, greater trochanter Palpation Location left lateral hip, greater trochanter Palpation Findings Tenderness Palpation Details tenderness on the left lateral hip in the proximity of the bursa PT-OP-K Range of Motion Start: 02/14/20 14:41 Freq: Status: Active Protocol: Document 04/15/20 17:58 [facility] (Rec: 04/15/20 17:59 [facility] [email or web address]) Hip Goniometric Range of Motion Hip left Flexion w/Knee Flexed 115 Straight Leg Raise 85 Extension 5 Abduction 20 Internal Rotation 15 External Rotation 10 Comments pt has shown changes with improved hip ER and hip extension PT-OP-Q Treatments Start: 02/14/20 14:41 Freq: Status: Active Protocol: Document 05/01/20 13:52 [facility] (Rec: 05/01/20 16:47 [facility] [email or web address]) Therapeutic Exercises Sidelying Exercises sidelying ITB stretch Reps/Minutes hold 60 seconds Standing Exercises standing side angle pose Reps/Minutes 1-2 reps Manual Therapy Treatment Soft Tissue Mobilization left quadratus lumborum release Body Location left QL Body Position right sidelying QL release left iliacus MFR Body Location left iliacus MFR Comments pt has history of hysterectomy and did have adhesions inbetween her uterus and bladder. MFR ITB, quad on the left Body Location ITB, Quad, iliposoas Comments tightness is slowly decreasing , moved up to the anterior hip to release iliopsoas attachemnts Joint Mobilizations 1 Joint grade II gentle posterior capsule stretch and distraction withhip flexed Comments treatment was gentle due to pts joint hypermobility. Pt tolerated well with no reports of pain Manual Techniques manual iliopsoas stretch Comments in sidelying positions and aldo position today, also worked on ITB stretching in sidelying positions PT-OP-R Modalities Start: 02/21/20 17:51 Freq: Status: Active Protocol: Document 03/04/20 17:57 [facility] (Rec: 03/04/20 17:57 [facility] [email or web address]) Ultrasound Therapy Treatment left ITB proximal Treatment Duration (minutes) 8 Patient Position Sidelying Coupling Medium Ultrasound Gel Applicator Size (cm2) 5 Frequency Setting (mHz) 1 Duty Cycle 100% Intensity Setting (w/cm2) 1.5 PT-OP-T Assessment and Plan Start: 02/14/20 14:41 Freq: Status: Active Protocol: Document 05/01/20 13:52 [facility] (Rec: 05/01/20 16:47 [facility] [email or web address]) Physical Therapy Assessment Assessment Summary Assessment pt showing improved ROM slowly and tolerating more walking with hills. Physical Therapy Plan Frequency and Duration Frequency of Treatment 2x/Week Duration of Treatment 8 Plan of Care Start Date 04/15/20 Plan of Care End Date 06/10/20 Therapeutic Interventions Therapeutic Interventions Home Exercise Program,Manual Therapy,Patient/Caregiver Education,Self-Care/Home Management,Soft Tissue Mobilization,Therapeutic Exercises Next Visit Focus/Plan Next Note Type Treatment Note Next Visit Plan continue to progress hip ROM, flexibility, trial of the biodex next visit
--- NOTE | 2020-05-07 13:51 | PT.OTN ---
Current Diagnoses Other bursitis of hip, left hip (05/07/20) Physical Therapy Treatment Note PT-OP-A Visit Information Start: 02/14/20 14:41 Freq: Status: Active Protocol: Document 05/07/20 13:44 [facility] (Rec: 05/07/20 13:50 [facility] [email or web address]) Out-Patient Physical Therapy Visit Information Visit Information Visit Type Treatment Note Visit Start Time 12:50 Visit Stop Time 13:30 Total Visit Minutes 40 Visit Number 16 PT-OP-B Current Condition Start: 02/14/20 14:41 Freq: Status: Active Protocol: Document 02/14/20 14:44 [facility] (Rec: 02/14/20 16:33 [facility] [id number]) Current Condition History of Current Condition Onset Date July 2019 Current Complaints left lateral hip and knee pain , hip pain with hills and sleeping left side History of Current Condition 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 Has a history of hip bursitis. This new hip pain felt different to her. It started in July and by August she was more painful. She had been walking a lot of hills and needed to stop. Pain is lateral and it goes to the top of her knee. She also notes her knee cap will tend to sublux. She does a lot of walking and will get pain down the front of her thigh. 2015 started to notice some stiffness, now she cant even sit cross legged on the floor any more due to her left hip. Sideways motion is painful. She feels the hills brought her pain on. 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 Treatment Goals Patient/Caregiver Goals Pt would be able to return to standing from a squat and be able to sit cross legged on the floor without pain. She would also like to be able to walk uphills without pain Prior Functional Status Baseline Function- ADL's Independent Baseline Function- Mobility Independent Baseline Function- Gait was able to ambulate hills prior to July Current Functional Impairments (Reported) Functional Limitations- Mobility/Gait pain walking hills, limitations in hip mobility especially with hip ER and sitting crosslegged on the floor. PT-OP-C Subjective Start: 02/14/20 14:41 Freq: Status: Active Protocol: Document 05/07/20 13:44 [facility] (Rec: 05/07/20 13:50 [facility] [email or web address]) OP-PT Subjective Patient Comments Patient Comments Pt notes she has been trying a few more hikes and has done a few hills. SHe notes she is still stiff first thing int he am. She has also been trying a yoga class that is a slow flow and is really liking it. PT-OP-F Manual Assessment Start: 02/14/20 14:41 Freq: Status: Active Protocol: Document 02/14/20 14:30 [facility] (Rec: 02/17/20 14:12 [facility] [email or web address]) Manual Assessments Soft Tissue Assessment Soft Tissue Mobility Assessment tightness in the ITB and iliopsoas fascial tissue L>R, adductor tissue B Joint Mobility Assessment Joint Mobility Assessment decreased anterior joint mobility of the left hip for hip ER PT-OP-J Posture/Palpation/Skin Start: 02/14/20 14:41 Freq: Status: Active Protocol: Document 02/14/20 14:30 [facility] (Rec: 02/17/20 14:12 [facility] [email or web address]) Palpation Assessment Location left lateral hip, greater trochanter Palpation Location left lateral hip, greater trochanter Palpation Findings Tenderness Palpation Details tenderness on the left lateral hip in the proximity of the bursa PT-OP-K Range of Motion Start: 02/14/20 14:41 Freq: Status: Active Protocol: Document 04/15/20 17:58 [facility] (Rec: 04/15/20 17:59 [facility] [email or web address]) Hip Goniometric Range of Motion Hip left Flexion w/Knee Flexed 115 Straight Leg Raise 85 Extension 5 Abduction 20 Internal Rotation 15 External Rotation 10 Comments pt has shown changes with improved hip ER and hip extension PT-OP-Q Treatments Start: 02/14/20 14:41 Freq: Status: Active Protocol: Document 05/07/20 13:44 [facility] (Rec: 05/07/20 13:50 [facility] [email or web address]) Cardio Equipment Recumbent Elliptical (Biodex) Duration (Minutes) 5 Resistance 2 Therapeutic Exercises Sidelying Exercises sidelying ITB stretch Reps/Minutes hold 60 seconds sidelying leg lifts and hip circles Reps/Minutes x 10 each Manual Therapy Treatment Soft Tissue Mobilization MFR ITB, quad on the left Body Location ITB, Quad, iliposoas Comments tightness is slowly decreasing , moved up to the anterior hip to release iliopsoas attachemnts Joint Mobilizations 1 Joint grade II gentle posterior capsule stretch and distraction withhip flexed Comments treatment was gentle due to pts joint hypermobility. Pt tolerated well with no reports of pain Manual Techniques MWM Type MWM lateral hip capsule stretch manual iliopsoas stretch Comments in sidelying positions and aldo position today, also worked on ITB stretching in sidelying positions PT-OP-R Modalities Start: 02/21/20 17:51 Freq: Status: Active Protocol: Document 03/04/20 17:57 [facility] (Rec: 03/04/20 17:57 [facility] [email or web address]) Ultrasound Therapy Treatment left ITB proximal Treatment Duration (minutes) 8 Patient Position Sidelying Coupling Medium Ultrasound Gel Applicator Size (cm2) 5 Frequency Setting (mHz) 1 Duty Cycle 100% Intensity Setting (w/cm2) 1.5 PT-OP-T Assessment and Plan Start: 02/14/20 14:41 Freq: Status: Active Protocol: Document 05/07/20 13:44 [facility] (Rec: 05/07/20 13:50 [facility] [email or web address]) Physical Therapy Assessment Assessment Summary Assessment I did try the biodex for warm up today for Maura. She was given cues to not let her knee roll in. She does report she experiences pain in her knee when biking up hills and I talked to her about her hip position and how this IR may irritate her knee. Physical Therapy Plan Frequency and Duration Frequency of Treatment 2x/Week Duration of Treatment 8 Plan of Care Start Date 04/15/20 Plan of Care End Date 06/10/20 Therapeutic Interventions Therapeutic Interventions Home Exercise Program,Manual Therapy,Patient/Caregiver Education,Self-Care/Home Management,Soft Tissue Mobilization,Therapeutic Exercises Next Visit Focus/Plan Next Note Type Treatment Note Next Visit Plan review lateral hip stabilization exercises, check in to see how Maura liked the biodex, continue to work on hip mobility and ER
--- NOTE | 2020-05-20 17:19 | PT.OTN ---
Current Diagnoses Other bursitis of hip, left hip (05/20/20) Physical Therapy Treatment Note PT-OP-A Visit Information Start: 02/14/20 14:41 Freq: Status: Active Protocol: Document 05/20/20 17:14 [facility] (Rec: 05/20/20 17:19 [facility] [email or web address]) Out-Patient Physical Therapy Visit Information Visit Information Visit Type Treatment Note Visit Start Time 14:30 Visit Stop Time 15:15 Total Visit Minutes 45 Visit Number 17 PT-OP-B Current Condition Start: 02/14/20 14:41 Freq: Status: Active Protocol: Document 02/14/20 14:44 [facility] (Rec: 02/14/20 16:33 [facility] [id number]) Current Condition History of Current Condition Onset Date July 2019 Current Complaints left lateral hip and knee pain , hip pain with hills and sleeping left side History of Current Condition 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 Has a history of hip bursitis. This new hip pain felt different to her. It started in July and by August she was more painful. She had been walking a lot of hills and needed to stop. Pain is lateral and it goes to the top of her knee. She also notes her knee cap will tend to sublux. She does a lot of walking and will get pain down the front of her thigh. 2015 started to notice some stiffness, now she cant even sit cross legged on the floor any more due to her left hip. Sideways motion is painful. She feels the hills brought her pain on. 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 Treatment Goals Patient/Caregiver Goals Pt would be able to return to standing from a squat and be able to sit cross legged on the floor without pain. She would also like to be able to walk uphills without pain Prior Functional Status Baseline Function- ADL's Independent Baseline Function- Mobility Independent Baseline Function- Gait was able to ambulate hills prior to July Current Functional Impairments (Reported) Functional Limitations- Mobility/Gait pain walking hills, limitations in hip mobility especially with hip ER and sitting crosslegged on the floor. PT-OP-C Subjective Start: 02/14/20 14:41 Freq: Status: Active Protocol: Document 05/20/20 17:14 [facility] (Rec: 05/20/20 17:19 [facility] [email or web address]) OP-PT Subjective Patient Comments Patient Comments pt notes she is hiking 2.5 to sometimes 3 miles now. Feels more ROM but still having pain with squatting activities especially with gardening. PT-OP-F Manual Assessment Start: 02/14/20 14:41 Freq: Status: Active Protocol: Document 02/14/20 14:30 [facility] (Rec: 02/17/20 14:12 [facility] [email or web address]) Manual Assessments Soft Tissue Assessment Soft Tissue Mobility Assessment tightness in the ITB and iliopsoas fascial tissue L>R, adductor tissue B Joint Mobility Assessment Joint Mobility Assessment decreased anterior joint mobility of the left hip for hip ER PT-OP-J Posture/Palpation/Skin Start: 02/14/20 14:41 Freq: Status: Active Protocol: Document 02/14/20 14:30 [facility] (Rec: 02/17/20 14:12 [facility] [email or web address]) Palpation Assessment Location left lateral hip, greater trochanter Palpation Location left lateral hip, greater trochanter Palpation Findings Tenderness Palpation Details tenderness on the left lateral hip in the proximity of the bursa PT-OP-K Range of Motion Start: 02/14/20 14:41 Freq: Status: Active Protocol: Document 04/15/20 17:58 [facility] (Rec: 04/15/20 17:59 [facility] [email or web address]) Hip Goniometric Range of Motion Hip left Flexion w/Knee Flexed 115 Straight Leg Raise 85 Extension 5 Abduction 20 Internal Rotation 15 External Rotation 10 Comments pt has shown changes with improved hip ER and hip extension PT-OP-Q Treatments Start: 02/14/20 14:41 Freq: Status: Active Protocol: Document 05/20/20 17:14 [facility] (Rec: 05/20/20 17:19 [facility] [email or web address]) Therapeutic Exercises Standing Exercises standing adductor stretch Reps/Minutes dynamic warm up stretch goddess pose Reps/Minutes alternating trunk rotation Manual Therapy Treatment Soft Tissue Mobilization adductor release Body Location left adductor release MFR ITB, quad on the left Body Location ITB, Quad, iliposoas Comments tightness is slowly decreasing , moved up to the anterior hip to release iliopsoas attachemnts Joint Mobilizations 1 Joint grade II gentle posterior capsule stretch and distraction withhip flexed Comments treatment was gentle due to pts joint hypermobility. Pt tolerated well with no reports of pain Manual Techniques manual iliopsoas stretch Comments in sidelying positions and aldo position today, also worked on ITB stretching in sidelying positions PT-OP-R Modalities Start: 02/21/20 17:51 Freq: Status: Active Protocol: Document 03/04/20 17:57 [facility] (Rec: 03/04/20 17:57 [facility] [email or web address]) Ultrasound Therapy Treatment left ITB proximal Treatment Duration (minutes) 8 Patient Position Sidelying Coupling Medium Ultrasound Gel Applicator Size (cm2) 5 Frequency Setting (mHz) 1 Duty Cycle 100% Intensity Setting (w/cm2) 1.5 PT-OP-T Assessment and Plan Start: 02/14/20 14:41 Freq: Status: Active Protocol: Document 05/20/20 17:14 [facility] (Rec: 05/20/20 17:19 [facility] [email or web address]) Physical Therapy Assessment Assessment Summary Assessment hip ER was slightly improved today, Maura is tolerating more but is still limited by lack of full hip ROM Physical Therapy Plan Frequency and Duration Frequency of Treatment 2x/Week Duration of Treatment 8 Plan of Care Start Date 04/15/20 Plan of Care End Date 06/10/20 Next Visit Focus/Plan Next Note Type Treatment Note Next Visit Plan review lateral hip stabilization exercises, check in to see how Maura liked the biodex, continue to work on hip mobility and ER
--- NOTE | 2020-05-27 16:58 | PT.OTN ---
Current Diagnoses Other bursitis of hip, left hip (05/27/20) Physical Therapy Treatment Note PT-OP-A Visit Information Start: 02/14/20 14:41 Freq: Status: Active Protocol: Document 05/27/20 16:52 [facility] (Rec: 05/27/20 16:58 [facility] [email or web address]) Out-Patient Physical Therapy Visit Information Visit Information Visit Type Treatment Note Visit Start Time 15:15 Visit Stop Time 16:00 Total Visit Minutes 45 Visit Number 18 PT-OP-B Current Condition Start: 02/14/20 14:41 Freq: Status: Active Protocol: Document 02/14/20 14:44 [facility] (Rec: 02/14/20 16:33 [facility] [id number]) Current Condition History of Current Condition Onset Date July 2019 Current Complaints left lateral hip and knee pain , hip pain with hills and sleeping left side History of Current Condition 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 Has a history of hip bursitis. This new hip pain felt different to her. It started in July and by August she was more painful. She had been walking a lot of hills and needed to stop. Pain is lateral and it goes to the top of her knee. She also notes her knee cap will tend to sublux. She does a lot of walking and will get pain down the front of her thigh. 2015 started to notice some stiffness, now she cant even sit cross legged on the floor any more due to her left hip. Sideways motion is painful. She feels the hills brought her pain on. 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 Treatment Goals Patient/Caregiver Goals Pt would be able to return to standing from a squat and be able to sit cross legged on the floor without pain. She would also like to be able to walk uphills without pain Prior Functional Status Baseline Function- ADL's Independent Baseline Function- Mobility Independent Baseline Function- Gait was able to ambulate hills prior to July Current Functional Impairments (Reported) Functional Limitations- Mobility/Gait pain walking hills, limitations in hip mobility especially with hip ER and sitting crosslegged on the floor. PT-OP-C Subjective Start: 02/14/20 14:41 Freq: Status: Active Protocol: Document 05/27/20 16:52 [facility] (Rec: 05/27/20 16:58 [facility] [email or web address]) OP-PT Subjective Patient Comments Patient Comments pt reports she did some gardening and hanging pots and then her left quad got really tight. She hasn't been able to loosen it. PT-OP-F Manual Assessment Start: 02/14/20 14:41 Freq: Status: Active Protocol: Document 02/14/20 14:30 [facility] (Rec: 02/17/20 14:12 [facility] [email or web address]) Manual Assessments Soft Tissue Assessment Soft Tissue Mobility Assessment tightness in the ITB and iliopsoas fascial tissue L>R, adductor tissue B Joint Mobility Assessment Joint Mobility Assessment decreased anterior joint mobility of the left hip for hip ER PT-OP-J Posture/Palpation/Skin Start: 02/14/20 14:41 Freq: Status: Active Protocol: Document 02/14/20 14:30 [facility] (Rec: 02/17/20 14:12 [facility] [email or web address]) Palpation Assessment Location left lateral hip, greater trochanter Palpation Location left lateral hip, greater trochanter Palpation Findings Tenderness Palpation Details tenderness on the left lateral hip in the proximity of the bursa PT-OP-K Range of Motion Start: 02/14/20 14:41 Freq: Status: Active Protocol: Document 04/15/20 17:58 [facility] (Rec: 04/15/20 17:59 [facility] [email or web address]) Hip Goniometric Range of Motion Hip left Flexion w/Knee Flexed 115 Straight Leg Raise 85 Extension 5 Abduction 20 Internal Rotation 15 External Rotation 10 Comments pt has shown changes with improved hip ER and hip extension PT-OP-Q Treatments Start: 02/14/20 14:41 Freq: Status: Active Protocol: Document 05/27/20 16:52 [facility] (Rec: 05/27/20 16:58 [facility] [email or web address]) Therapeutic Exercises Supine Exercises adductor squeeze with ball Reps/Minutes 10 reps hold x 5 seconds Comments used as a self correction for SI joint iliopsoas stretch in supine Side left Reps/Minutes hold 30 sec to 1 min Comments aldo test position Manual Therapy Treatment Soft Tissue Mobilization MFR ITB, quad on the left Body Location ITB, Quad, iliposoas Comments tightness is slowly decreasing , moved up to the anterior hip to release iliopsoas attachemnts Joint Mobilizations left LE long axis distraction Comments good tolerance and helps to relieve pain MET left anterior rotation Reps/Duration x 5 reps Comments pt shown self left LE self correction technique 1 Joint grade II gentle posterior capsule stretch and distraction withhip flexed Comments treatment was gentle due to pts joint hypermobility. Pt tolerated well with no reports of pain PT-OP-R Modalities Start: 02/21/20 17:51 Freq: Status: Active Protocol: Document 03/04/20 17:57 [facility] (Rec: 03/04/20 17:57 [facility] [email or web address]) Ultrasound Therapy Treatment left ITB proximal Treatment Duration (minutes) 8 Patient Position Sidelying Coupling Medium Ultrasound Gel Applicator Size (cm2) 5 Frequency Setting (mHz) 1 Duty Cycle 100% Intensity Setting (w/cm2) 1.5 PT-OP-T Assessment and Plan Start: 02/14/20 14:41 Freq: Status: Active Protocol: Document 05/27/20 16:52 [facility] (Rec: 05/27/20 16:58 [facility] [email or web address]) Physical Therapy Assessment Assessment Summary Assessment SI correction helped calm down the left quad, Maura tolerated SI distraction well and was shown what to do at home to help stabilize her SI joint. Adductors were looser today as Maura has been stretching these. Physical Therapy Plan Frequency and Duration Frequency of Treatment 2x/Week Duration of Treatment 8 Plan of Care Start Date 04/15/20 Plan of Care End Date 06/10/20 Next Visit Focus/Plan Next Note Type Treatment Note Next Visit Plan review lateral hip stabilization exercises, check in to see how Maura liked the biodex, continue to work on hip mobility and ER
--- NOTE | 2020-05-29 13:27 | PT.OTN ---
Current Diagnoses Other bursitis of hip, left hip (05/29/20) Physical Therapy Treatment Note PT-OP-A Visit Information Start: 02/14/20 14:41 Freq: Status: Active Protocol: Document 05/29/20 11:15 [facility] (Rec: 05/29/20 13:27 [facility] [email or web address]) Out-Patient Physical Therapy Visit Information Visit Information Visit Type Treatment Note Visit Start Time 11:15 Visit Stop Time 12:00 Total Visit Minutes 45 Visit Number 19 PT-OP-B Current Condition Start: 02/14/20 14:41 Freq: Status: Active Protocol: Document 02/14/20 14:44 [facility] (Rec: 02/14/20 16:33 [facility] [id number]) Current Condition History of Current Condition Onset Date July 2019 Current Complaints left lateral hip and knee pain , hip pain with hills and sleeping left side History of Current Condition 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 Has a history of hip bursitis. This new hip pain felt different to her. It started in July and by August she was more painful. She had been walking a lot of hills and needed to stop. Pain is lateral and it goes to the top of her knee. She also notes her knee cap will tend to sublux. She does a lot of walking and will get pain down the front of her thigh. 2015 started to notice some stiffness, now she cant even sit cross legged on the floor any more due to her left hip. Sideways motion is painful. She feels the hills brought her pain on. 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 Treatment Goals Patient/Caregiver Goals Pt would be able to return to standing from a squat and be able to sit cross legged on the floor without pain. She would also like to be able to walk uphills without pain Prior Functional Status Baseline Function- ADL's Independent Baseline Function- Mobility Independent Baseline Function- Gait was able to ambulate hills prior to July Current Functional Impairments (Reported) Functional Limitations- Mobility/Gait pain walking hills, limitations in hip mobility especially with hip ER and sitting crosslegged on the floor. PT-OP-C Subjective Start: 02/14/20 14:41 Freq: Status: Active Protocol: Document 05/29/20 11:15 [facility] (Rec: 05/29/20 13:27 [facility] [email or web address]) OP-PT Subjective Patient Comments Patient Comments pt reports the treatment for her SI joint really helped last visit and she is wondering if this is the cause of her hip dysfunction PT-OP-F Manual Assessment Start: 02/14/20 14:41 Freq: Status: Active Protocol: Document 02/14/20 14:30 [facility] (Rec: 02/17/20 14:12 [facility] [email or web address]) Manual Assessments Soft Tissue Assessment Soft Tissue Mobility Assessment tightness in the ITB and iliopsoas fascial tissue L>R, adductor tissue B Joint Mobility Assessment Joint Mobility Assessment decreased anterior joint mobility of the left hip for hip ER PT-OP-J Posture/Palpation/Skin Start: 02/14/20 14:41 Freq: Status: Active Protocol: Document 02/14/20 14:30 [facility] (Rec: 02/17/20 14:12 [facility] [email or web address]) Palpation Assessment Location left lateral hip, greater trochanter Palpation Location left lateral hip, greater trochanter Palpation Findings Tenderness Palpation Details tenderness on the left lateral hip in the proximity of the bursa PT-OP-K Range of Motion Start: 02/14/20 14:41 Freq: Status: Active Protocol: Document 04/15/20 17:58 [facility] (Rec: 04/15/20 17:59 [facility] [email or web address]) Hip Goniometric Range of Motion Hip left Flexion w/Knee Flexed 115 Straight Leg Raise 85 Extension 5 Abduction 20 Internal Rotation 15 External Rotation 10 Comments pt has shown changes with improved hip ER and hip extension PT-OP-Q Treatments Start: 02/14/20 14:41 Freq: Status: Active Protocol: Document 05/29/20 11:15 [facility] (Rec: 05/29/20 13:27 [facility] [email or web address]) Manual Therapy Treatment Soft Tissue Mobilization left quadratus lumborum release Body Location left QL Body Position right sidelying QL release MFR ITB, quad on the left Body Location ITB, Quad, iliposoas Comments tightness is slowly decreasing , moved up to the anterior hip to release iliopsoas attachemnts Joint Mobilizations left LE long axis distraction Comments good tolerance and helps to relieve pain Manual Techniques MWM Type MWM lateral hip capsule stretch manual iliopsoas stretch Comments in sidelying positions and aldo position today, also worked on ITB stretching in sidelying positions PT-OP-R Modalities Start: 02/21/20 17:51 Freq: Status: Active Protocol: Document 03/04/20 17:57 [facility] (Rec: 03/04/20 17:57 [facility] [email or web address]) Ultrasound Therapy Treatment left ITB proximal Treatment Duration (minutes) 8 Patient Position Sidelying Coupling Medium Ultrasound Gel Applicator Size (cm2) 5 Frequency Setting (mHz) 1 Duty Cycle 100% Intensity Setting (w/cm2) 1.5 PT-OP-T Assessment and Plan Start: 02/14/20 14:41 Freq: Status: Active Protocol: Document 05/29/20 11:15 [facility] (Rec: 05/29/20 13:27 [facility] [email or web address]) Physical Therapy Assessment Assessment Summary Assessment Pt leg length looked much beter today, still a little shorter on the left leg and not sure if this is a true leg length discrepency or not. QL is still tighter on the left. Pt is noting improvements with hip ROM and decreased SI pain and quad pain today Physical Therapy Plan Frequency and Duration Frequency of Treatment 2x/Week Duration of Treatment 8 Plan of Care Start Date 04/15/20 Plan of Care End Date 06/10/20 Therapeutic Interventions Therapeutic Interventions Home Exercise Program,Manual Therapy,Patient/Caregiver Education,Self-Care/Home Management,Soft Tissue Mobilization,Therapeutic Exercises Next Visit Focus/Plan Next Note Type Progress Note Next Visit Plan tests and measures for IA next visit
--- NOTE | 2020-06-03 16:51 | PT.OTN ---
Current Diagnoses Other bursitis of hip, left hip (06/03/20) Physical Therapy Treatment Note PT-OP-A Visit Information Start: 02/14/20 14:41 Freq: Status: Active Protocol: Document 06/03/20 13:53 [facility] (Rec: 06/03/20 13:54 [facility] [id number]) Out-Patient Physical Therapy Visit Information Visit Information Visit Type Treatment Note Visit Start Time 13:50 Visit Stop Time 14:30 Total Visit Minutes 40 Visit Number 20 PT-OP-B Current Condition Start: 02/14/20 14:41 Freq: Status: Active Protocol: Document 02/14/20 14:44 [facility] (Rec: 02/14/20 16:33 [facility] [id number]) Current Condition History of Current Condition Onset Date July 2019 Current Complaints left lateral hip and knee pain , hip pain with hills and sleeping left side History of Current Condition 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 Has a history of hip bursitis. This new hip pain felt different to her. It started in July and by August she was more painful. She had been walking a lot of hills and needed to stop. Pain is lateral and it goes to the top of her knee. She also notes her knee cap will tend to sublux. She does a lot of walking and will get pain down the front of her thigh. 2015 started to notice some stiffness, now she cant even sit cross legged on the floor any more due to her left hip. Sideways motion is painful. She feels the hills brought her pain on. 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 Treatment Goals Patient/Caregiver Goals Pt would be able to return to standing from a squat and be able to sit cross legged on the floor without pain. She would also like to be able to walk uphills without pain Prior Functional Status Baseline Function- ADL's Independent Baseline Function- Mobility Independent Baseline Function- Gait was able to ambulate hills prior to July Current Functional Impairments (Reported) Functional Limitations- Mobility/Gait pain walking hills, limitations in hip mobility especially with hip ER and sitting crosslegged on the floor. PT-OP-C Subjective Start: 02/14/20 14:41 Freq: Status: Active Protocol: Document 06/03/20 13:53 [facility] (Rec: 06/03/20 13:54 [facility] [id number]) OP-PT Subjective Patient Comments Patient Comments pt notes she has had some immune response since her second covid vaccine. PT-OP-F Manual Assessment Start: 02/14/20 14:41 Freq: Status: Active Protocol: Document 02/14/20 14:30 [facility] (Rec: 02/17/20 14:12 [facility] [email or web address]) Manual Assessments Soft Tissue Assessment Soft Tissue Mobility Assessment tightness in the ITB and iliopsoas fascial tissue L>R, adductor tissue B Joint Mobility Assessment Joint Mobility Assessment decreased anterior joint mobility of the left hip for hip ER PT-OP-J Posture/Palpation/Skin Start: 02/14/20 14:41 Freq: Status: Active Protocol: Document 02/14/20 14:30 [facility] (Rec: 02/17/20 14:12 [facility] [email or web address]) Palpation Assessment Location left lateral hip, greater trochanter Palpation Location left lateral hip, greater trochanter Palpation Findings Tenderness Palpation Details tenderness on the left lateral hip in the proximity of the bursa PT-OP-K Range of Motion Start: 02/14/20 14:41 Freq: Status: Active Protocol: Document 04/15/20 17:58 [facility] (Rec: 04/15/20 17:59 [facility] [email or web address]) Hip Goniometric Range of Motion Hip left Flexion w/Knee Flexed 115 Straight Leg Raise 85 Extension 5 Abduction 20 Internal Rotation 15 External Rotation 10 Comments pt has shown changes with improved hip ER and hip extension PT-OP-Q Treatments Start: 02/14/20 14:41 Freq: Status: Active Protocol: Document 06/03/20 16:49 [facility] (Rec: 06/03/20 16:51 [facility] [email or web address]) Therapeutic Exercises Supine Exercises TA with marching Reps/Minutes x 10 reps Manual Therapy Treatment Soft Tissue Mobilization left quadratus lumborum release Body Location left QL Body Position right sidelying QL release MFR ITB, quad on the left Body Location ITB, Quad, iliposoas Comments tightness is slowly decreasing , moved up to the anterior hip to release iliopsoas attachemnts Joint Mobilizations left LE long axis distraction Comments good tolerance and helps to relieve pain MET left anterior rotation Reps/Duration x 5 reps Comments pt shown self left LE self correction technique 1 Joint grade II gentle posterior capsule stretch and distraction withhip flexed Comments treatment was gentle due to pts joint hypermobility. Pt tolerated well with no reports of pain PT-OP-R Modalities Start: 02/21/20 17:51 Freq: Status: Active Protocol: Document 03/04/20 17:57 [facility] (Rec: 03/04/20 17:57 [facility] [email or web address]) Ultrasound Therapy Treatment left ITB proximal Treatment Duration (minutes) 8 Patient Position Sidelying Coupling Medium Ultrasound Gel Applicator Size (cm2) 5 Frequency Setting (mHz) 1 Duty Cycle 100% Intensity Setting (w/cm2) 1.5 PT-OP-T Assessment and Plan Start: 02/14/20 14:41 Freq: Status: Active Protocol: Document 06/03/20 16:49 [facility] (Rec: 06/03/20 16:51 [facility] [email or web address]) Physical Therapy Assessment Assessment Summary Assessment worked an additional time on the SI joint, she reports feeling pain with seated marching but after treatment today this was better. We worked on core stabilization again with the march
--- NOTE | 2020-06-05 17:42 | PT.OTN ---
Current Diagnoses Other bursitis of hip, left hip (06/05/20) Physical Therapy Treatment Note PT-OP-A Visit Information Start: 02/14/20 14:41 Freq: Status: Active Protocol: Document 06/05/20 14:34 [facility] (Rec: 06/05/20 14:35 [facility] [id number]) Out-Patient Physical Therapy Visit Information Visit Information Visit Type Treatment Note Visit Start Time 14:35 Visit Stop Time 15:15 Total Visit Minutes 40 Visit Number 21 PT-OP-B Current Condition Start: 02/14/20 14:41 Freq: Status: Active Protocol: Document 02/14/20 14:44 [facility] (Rec: 02/14/20 16:33 [facility] [id number]) Current Condition History of Current Condition Onset Date July 2019 Current Complaints left lateral hip and knee pain , hip pain with hills and sleeping left side History of Current Condition 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 Has a history of hip bursitis. This new hip pain felt different to her. It started in July and by August she was more painful. She had been walking a lot of hills and needed to stop. Pain is lateral and it goes to the top of her knee. She also notes her knee cap will tend to sublux. She does a lot of walking and will get pain down the front of her thigh. 2015 started to notice some stiffness, now she cant even sit cross legged on the floor any more due to her left hip. Sideways motion is painful. She feels the hills brought her pain on. 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 Treatment Goals Patient/Caregiver Goals Pt would be able to return to standing from a squat and be able to sit cross legged on the floor without pain. She would also like to be able to walk uphills without pain Prior Functional Status Baseline Function- ADL's Independent Baseline Function- Mobility Independent Baseline Function- Gait was able to ambulate hills prior to July Current Functional Impairments (Reported) Functional Limitations- Mobility/Gait pain walking hills, limitations in hip mobility especially with hip ER and sitting crosslegged on the floor. PT-OP-C Subjective Start: 02/14/20 14:41 Freq: Status: Active Protocol: Document 06/05/20 14:34 [facility] (Rec: 06/05/20 14:35 [facility] [id number]) OP-PT Subjective Patient Comments Patient Comments pt notes she was sore yterday in her SI and hip PT-OP-F Manual Assessment Start: 02/14/20 14:41 Freq: Status: Active Protocol: Document 02/14/20 14:30 [facility] (Rec: 02/17/20 14:12 [facility] [email or web address]) Manual Assessments Soft Tissue Assessment Soft Tissue Mobility Assessment tightness in the ITB and iliopsoas fascial tissue L>R, adductor tissue B Joint Mobility Assessment Joint Mobility Assessment decreased anterior joint mobility of the left hip for hip ER PT-OP-J Posture/Palpation/Skin Start: 02/14/20 14:41 Freq: Status: Active Protocol: Document 02/14/20 14:30 [facility] (Rec: 02/17/20 14:12 [facility] [email or web address]) Palpation Assessment Location left lateral hip, greater trochanter Palpation Location left lateral hip, greater trochanter Palpation Findings Tenderness Palpation Details tenderness on the left lateral hip in the proximity of the bursa PT-OP-K Range of Motion Start: 02/14/20 14:41 Freq: Status: Active Protocol: Document 04/15/20 17:58 [facility] (Rec: 04/15/20 17:59 [facility] [email or web address]) Hip Goniometric Range of Motion Hip left Flexion w/Knee Flexed 115 Straight Leg Raise 85 Extension 5 Abduction 20 Internal Rotation 15 External Rotation 10 Comments pt has shown changes with improved hip ER and hip extension PT-OP-Q Treatments Start: 02/14/20 14:41 Freq: Status: Active Protocol: Document 06/05/20 14:30 [facility] (Rec: 06/05/20 17:41 [facility] [email or web address]) Manual Therapy Treatment Soft Tissue Mobilization MFR ITB, quad on the left Body Location ITB, Quad, iliposoas Comments tightness is slowly decreasing , moved up to the anterior hip to release iliopsoas attachemnts Joint Mobilizations 1 Joint grade II gentle posterior capsule stretch and distraction withhip flexed Comments treatment was gentle due to pts joint hypermobility. Pt tolerated well with no reports of pain Manual Techniques MWM Type MWM lateral hip capsule stretch manual iliopsoas stretch Comments in sidelying positions and aldo position today, also worked on ITB stretching in sidelying positions PT-OP-R Modalities Start: 02/21/20 17:51 Freq: Status: Active Protocol: Document 03/04/20 17:57 [facility] (Rec: 03/04/20 17:57 [facility] [email or web address]) Ultrasound Therapy Treatment left ITB proximal Treatment Duration (minutes) 8 Patient Position Sidelying Coupling Medium Ultrasound Gel Applicator Size (cm2) 5 Frequency Setting (mHz) 1 Duty Cycle 100% Intensity Setting (w/cm2) 1.5 PT-OP-T Assessment and Plan Start: 02/14/20 14:41 Freq: Status: Active Protocol: Document 06/05/20 14:30 [facility] (Rec: 06/05/20 17:41 [facility] [email or web address]) Physical Therapy Assessment Goals tightness of the ITB, Quadriceps, iliopsoas L Impairment Tightness of the ITB, quadriceps, iliopsoas on the left Air Bag Stripper Goal (LTG) Decrease soft tissue tightness with manual therapy techniques and stretches. Pt is no longer tender to palpation over the greater trochanter and she has a negative aldo test. good progress especially with improved iliopsoas length LTG Duration 8 weeks Decreased left hip ROM into ER Impairment Decreased left hip ROM into hip ER Short Term Goal (STG) Maura is educated on specific stretches to lengthen her ITB and iliopsoas to improved anterior glide of the hip and improve hip ER. She is able to improve hip ER to 10 degrees or better. excellent progress STG Duration 4 weeks Care Home Goal (LTG) Maura is able to return to sitting on the floor cross legged for meditation activities without increased pain. good progress LTG Duration 8 weeks left lateral hip pain rated 3-6/10 Impairment Left lateral hip pain rated 3- 6/10 Care Home Goal (LTG) Maura is able to decrease pain in her hips to 2 or less and she is able to return to walking including hills without increased complaints of pain. good progress up to 2-3 miles of walking now Assessment Summary Assessment Maura is making steady progress with her hip ROM and reducing pain. There has been some SI involvement so we are working on SI stablization as well. Maura would benefit from continued PT Physical Therapy Plan Frequency and Duration Frequency of Treatment 2x/Week Duration of Treatment 8 Plan of Care Start Date 06/05/20 Plan of Care End Date 07/31/20 Therapeutic Interventions Therapeutic Interventions Home Exercise Program,Manual Therapy,Patient/Caregiver Education,Self-Care/Home Management,Soft Tissue Mobilization,Therapeutic Exercises Next Visit Focus/Plan Next Note Type Treatment Note Next Visit Plan resume stabilization exercises for SI stability and hip control
--- NOTE | 2020-06-05 17:43 | PT.OPPOC ---
Physical, Occupational & Speech Therapy At [facility] Current Diagnoses Other bursitis of hip, left hip (06/05/20) Visit Care Team Role Provider Type Syed Perez MD Attending Provider Physician Primary Care Provider Referring Provider Specialty: Internal Medicine Address: [address] [place] [address], [address], [address] Email: [email or web address] Plan Of Care PT-OP-T Assessment and Plan Start: 02/14/20 14:41 Freq: Status: Active Protocol: Document 06/05/20 14:30 [facility] (Rec: 06/05/20 17:41 [facility] [email or web address]) Physical Therapy Assessment Goals tightness of the ITB, Quadriceps, iliopsoas L Impairment Tightness of the ITB, quadriceps, iliopsoas on the left Steel Erector Apprentice Goal (LTG) Decrease soft tissue tightness with manual therapy techniques and stretches. Pt is no longer tender to palpation over the greater trochanter and she has a negative aldo test. good progress especially with improved iliopsoas length LTG Duration 8 weeks Decreased left hip ROM into ER Impairment Decreased left hip ROM into hip ER Short Term Goal (STG) Maura is educated on specific stretches to lengthen her ITB and iliopsoas to improved anterior glide of the hip and improve hip ER. She is able to improve hip ER to 10 degrees or better. excellent progress STG Duration 4 weeks Steel Erector Apprentice Goal (LTG) Maura is able to return to sitting on the floor cross legged for meditation activities without increased pain. good progress LTG Duration 8 weeks left lateral hip pain rated 3-6/10 Impairment Left lateral hip pain rated 3- 6/10 [facility] Goal (LTG) Maura is able to decrease pain in her hips to 2 or less and she is able to return to walking including hills without increased complaints of pain. good progress up to 2-3 miles of walking now Assessment Summary Assessment Maura is making steady progress with her hip ROM and reducing pain. There has been some SI involvement so we are working on SI stabilization as well. Maura would benefit from continued PT Physical Therapy Plan Frequency and Duration Frequency of Treatment 2x/Week Duration of Treatment 8 Plan of Care Start Date 06/05/20 Plan of Care End Date 07/31/20 Therapeutic Interventions Therapeutic Interventions Home Exercise Program,Manual Therapy,Patient/Caregiver Education,Self-Care/Home Management,Soft Tissue Mobilization,Therapeutic Exercises Next Visit Focus/Plan Next Note Type Treatment Note Next Visit Plan resume stabilization exercises for SI stability and hip control Plan of Care Dates Plan of Care Start Date 06/05/20 Plan of Care End Date 07/31/20 Electronically Signed by: Norah Yu, PT 06/05/20 [id number] Please Sign and Return: I have reviewed this Plan of Care and certify that the skilled therapy services above are required to meet the patient?s needs. Physician Signature Date Printed Name and Credentials Clinical Instructor Signature Printed Name and Credentials
--- NOTE | 2020-06-11 14:07 | PT.OTN ---
Current Diagnoses Other bursitis of hip, left hip (06/11/20) Physical Therapy Treatment Note PT-OP-A Visit Information Start: 02/14/20 14:41 Freq: Status: Active Protocol: Document 06/11/20 11:18 [facility] (Rec: 06/11/20 12:06 [facility] [id number]) Out-Patient Physical Therapy Visit Information Visit Information Visit Type Treatment Note Visit Start Time 11:15 Visit Stop Time 12:00 Total Visit Minutes 45 Visit Number 22 PT-OP-B Current Condition Start: 02/14/20 14:41 Freq: Status: Active Protocol: Document 02/14/20 14:44 [facility] (Rec: 02/14/20 16:33 [facility] [id number]) Current Condition History of Current Condition Onset Date July 2019 Current Complaints left lateral hip and knee pain , hip pain with hills and sleeping left side History of Current Condition 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 Has a history of hip bursitis. This new hip pain felt different to her. It started in July and by August she was more painful. She had been walking a lot of hills and needed to stop. Pain is lateral and it goes to the top of her knee. She also notes her knee cap will tend to sublux. She does a lot of walking and will get pain down the front of her thigh. 2015 started to notice some stiffness, now she cant even sit cross legged on the floor any more due to her left hip. Sideways motion is painful. She feels the hills brought her pain on. 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 Treatment Goals Patient/Caregiver Goals Pt would be able to return to standing from a squat and be able to sit cross legged on the floor without pain. She would also like to be able to walk uphills without pain Prior Functional Status Baseline Function- ADL's Independent Baseline Function- Mobility Independent Baseline Function- Gait was able to ambulate hills prior to July Current Functional Impairments (Reported) Functional Limitations- Mobility/Gait pain walking hills, limitations in hip mobility especially with hip ER and sitting crosslegged on the floor. PT-OP-C Subjective Start: 02/14/20 14:41 Freq: Status: Active Protocol: Document 06/11/20 11:18 [facility] (Rec: 06/11/20 12:06 [facility] [id number]) OP-PT Subjective Patient Comments Patient Comments pt reports shince last week she hasn't had the pain in her hip She isn't having any of the buring pain. PT-OP-F Manual Assessment Start: 02/14/20 14:41 Freq: Status: Active Protocol: Document 02/14/20 14:30 [facility] (Rec: 02/17/20 14:12 [facility] [email or web address]) Manual Assessments Soft Tissue Assessment Soft Tissue Mobility Assessment tightness in the ITB and iliopsoas fascial tissue L>R, adductor tissue B Joint Mobility Assessment Joint Mobility Assessment decreased anterior joint mobility of the left hip for hip ER PT-OP-J Posture/Palpation/Skin Start: 02/14/20 14:41 Freq: Status: Active Protocol: Document 02/14/20 14:30 [facility] (Rec: 02/17/20 14:12 [facility] [email or web address]) Palpation Assessment Location left lateral hip, greater trochanter Palpation Location left lateral hip, greater trochanter Palpation Findings Tenderness Palpation Details tenderness on the left lateral hip in the proximity of the bursa PT-OP-K Range of Motion Start: 02/14/20 14:41 Freq: Status: Active Protocol: Document 04/15/20 17:58 [facility] (Rec: 04/15/20 17:59 [facility] [email or web address]) Hip Goniometric Range of Motion Hip left Flexion w/Knee Flexed 115 Straight Leg Raise 85 Extension 5 Abduction 20 Internal Rotation 15 External Rotation 10 Comments pt has shown changes with improved hip ER and hip extension PT-OP-Q Treatments Start: 02/14/20 14:41 Freq: Status: Active Protocol: Document 06/11/20 11:15 [facility] (Rec: 06/11/20 14:07 [facility] [email or web address]) Manual Therapy Treatment Soft Tissue Mobilization adductor release Body Location left adductor release MFR ITB, quad on the left Body Location ITB, Quad, iliposoas Comments tightness is slowly decreasing , moved up to the anterior hip to release iliopsoas attachemnts Joint Mobilizations 1 Joint grade II gentle posterior capsule stretch and distraction withhip flexed Comments treatment was gentle due to pts joint hypermobility. Pt tolerated well with no reports of pain Manual Techniques manual iliopsoas stretch Comments in sidelying positions and aldo position today, also worked on ITB stretching in sidelying positions PT-OP-R Modalities Start: 02/21/20 17:51 Freq: Status: Active Protocol: Document 03/04/20 17:57 [facility] (Rec: 03/04/20 17:57 [facility] [email or web address]) Ultrasound Therapy Treatment left ITB proximal Treatment Duration (minutes) 8 Patient Position Sidelying Coupling Medium Ultrasound Gel Applicator Size (cm2) 5 Frequency Setting (mHz) 1 Duty Cycle 100% Intensity Setting (w/cm2) 1.5 PT-OP-T Assessment and Plan Start: 02/14/20 14:41 Freq: Status: Active Protocol: Document 06/11/20 11:15 [facility] (Rec: 06/11/20 14:07 [facility] [email or web address]) Physical Therapy Assessment Assessment Summary Assessment Maura's ROM today was much improved and she was feeling overall like her pain has decreased. She will be heading off on vacation and did schedule visits for when she returns in July. Physical Therapy Plan Frequency and Duration Frequency of Treatment 2x/Week Duration of Treatment 8 Plan of Care Start Date 06/05/20 Plan of Care End Date 07/31/20 Therapeutic Interventions Therapeutic Interventions Home Exercise Program,Manual Therapy,Patient/Caregiver Education,Self-Care/Home Management,Soft Tissue Mobilization,Therapeutic Exercises Next Visit Focus/Plan Next Note Type Treatment Note Next Visit Plan resume stabilization exercises for SI stability and hip control. Recheck hip ROM and flexibility next visit
--- NOTE | 2020-07-15 17:43 | PT.OTN ---
Current Diagnoses Other bursitis of hip, left hip (07/15/20) Physical Therapy Treatment Note PT-OP-A Visit Information Start: 02/14/20 14:41 Freq: Status: Active Protocol: Document 07/15/20 13:03 [facility] (Rec: 07/15/20 13:49 [facility] [id number]) Out-Patient Physical Therapy Visit Information Visit Information Visit Type Treatment Note Visit Start Time 13:00 Visit Stop Time 13:45 Total Visit Minutes 45 Visit Number 23 PT-OP-B Current Condition Start: 02/14/20 14:41 Freq: Status: Active Protocol: Document 02/14/20 14:44 [facility] (Rec: 02/14/20 16:33 [facility] [id number]) Current Condition History of Current Condition Onset Date July 2019 Current Complaints left lateral hip and knee pain , hip pain with hills and sleeping left side History of Current Condition 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 Has a history of hip bursitis. This new hip pain felt different to her. It started in July and by August she was more painful. She had been walking a lot of hills and needed to stop. Pain is lateral and it goes to the top of her knee. She also notes her knee cap will tend to sublux. She does a lot of walking and will get pain down the front of her thigh. 2015 started to notice some stiffness, now she cant even sit cross legged on the floor any more due to her left hip. Sideways motion is painful. She feels the hills brought her pain on. 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 Treatment Goals Patient/Caregiver Goals Pt would be able to return to standing from a squat and be able to sit cross legged on the floor without pain. She would also like to be able to walk uphills without pain Prior Functional Status Baseline Function- ADL's Independent Baseline Function- Mobility Independent Baseline Function- Gait was able to ambulate hills prior to July Current Functional Impairments (Reported) Functional Limitations- Mobility/Gait pain walking hills, limitations in hip mobility especially with hip ER and sitting crosslegged on the floor. PT-OP-C Subjective Start: 02/14/20 14:41 Freq: Status: Active Protocol: Document 07/15/20 13:03 [facility] (Rec: 07/15/20 13:49 [facility] [id number]) OP-PT Subjective Patient Comments Patient Comments pt reports her hip did really well, she had to step up ups into her camper and she feels stronger now. PT-OP-F Manual Assessment Start: 02/14/20 14:41 Freq: Status: Active Protocol: Document 02/14/20 14:30 [facility] (Rec: 02/17/20 14:12 [facility] [email or web address]) Manual Assessments Soft Tissue Assessment Soft Tissue Mobility Assessment tightness in the ITB and iliopsoas fascial tissue L>R, adductor tissue B Joint Mobility Assessment Joint Mobility Assessment decreased anterior joint mobility of the left hip for hip ER PT-OP-J Posture/Palpation/Skin Start: 02/14/20 14:41 Freq: Status: Active Protocol: Document 02/14/20 14:30 [facility] (Rec: 02/17/20 14:12 [facility] [email or web address]) Palpation Assessment Location left lateral hip, greater trochanter Palpation Location left lateral hip, greater trochanter Palpation Findings Tenderness Palpation Details tenderness on the left lateral hip in the proximity of the bursa PT-OP-K Range of Motion Start: 02/14/20 14:41 Freq: Status: Active Protocol: Document 04/15/20 17:58 [facility] (Rec: 04/15/20 17:59 [facility] [email or web address]) Hip Goniometric Range of Motion Hip left Flexion w/Knee Flexed 115 Straight Leg Raise 85 Extension 5 Abduction 20 Internal Rotation 15 External Rotation 10 Comments pt has shown changes with improved hip ER and hip extension PT-OP-Q Treatments Start: 02/14/20 14:41 Freq: Status: Active Protocol: Document 07/15/20 17:43 [facility] (Rec: 07/15/20 17:43 [facility] [email or web address]) Manual Therapy Treatment Soft Tissue Mobilization adductor release Body Location left adductor release MFR ITB, quad on the left Body Location ITB, Quad, iliposoas Comments tightness is slowly decreasing , moved up to the anterior hip to release iliopsoas attachemnts Manual Techniques manual iliopsoas stretch Comments in sidelying positions and aldo position today, also worked on ITB stretching in sidelying positions PT-OP-R Modalities Start: 02/21/20 17:51 Freq: Status: Active Protocol: Document 03/04/20 17:57 [facility] (Rec: 03/04/20 17:57 [facility] [email or web address]) Ultrasound Therapy Treatment left ITB proximal Treatment Duration (minutes) 8 Patient Position Sidelying Coupling Medium Ultrasound Gel Applicator Size (cm2) 5 Frequency Setting (mHz) 1 Duty Cycle 100% Intensity Setting (w/cm2) 1.5 PT-OP-T Assessment and Plan Start: 02/14/20 14:41 Freq: Status: Active Protocol: Document 07/15/20 17:41 [facility] (Rec: 07/15/20 17:43 [facility] [email or web address]) Physical Therapy Assessment Assessment Summary Assessment Maura is doind much better overall and she is finding stretches and strengthenign exercises that really work for her as well as things to avoid doing like twisting that tighten her ITB. SHe will cx the next few visits and work on her own and will keep her last remaining visits only if she needs them. Physical Therapy Plan Frequency and Duration Frequency of Treatment 2x/Week Duration of Treatment 8 Plan of Care Start Date 06/05/20 Plan of Care End Date 07/31/20 Therapeutic Interventions Therapeutic Interventions Home Exercise Program,Manual Therapy,Patient/Caregiver Education,Self-Care/Home Management,Soft Tissue Mobilization,Therapeutic Exercises Next Visit Focus/Plan Next Note Type Treatment Note Next Visit Plan resume stabilization exercises for SI stability and hip control. Recheck hip ROM and flexibility next visit
--- NOTE | 2020-08-14 18:08 | PT.OTN ---
Current Diagnoses Other bursitis of hip, left hip (08/14/20) Physical Therapy Treatment Note PT-OP-A Visit Information Start: 02/14/20 14:41 Freq: Status: Active Protocol: Document 08/14/20 13:00 [facility] (Rec: 08/14/20 13:00 [facility] [id number]) Out-Patient Physical Therapy Visit Information Visit Information Visit Type Treatment Note Visit Start Time 13:00 Visit Stop Time 13:45 Total Visit Minutes 45 Visit Number 24 PT-OP-B Current Condition Start: 02/14/20 14:41 Freq: Status: Active Protocol: Document 02/14/20 14:44 [facility] (Rec: 02/14/20 16:33 [facility] [id number]) Current Condition History of Current Condition Onset Date July 2019 Current Complaints left lateral hip and knee pain , hip pain with hills and sleeping left side History of Current Condition 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 Has a history of hip bursitis. This new hip pain felt different to her. It started in July and by August she was more painful. She had been walking a lot of hills and needed to stop. Pain is lateral and it goes to the top of her knee. She also notes her knee cap will tend to sublux. She does a lot of walking and will get pain down the front of her thigh. 2015 started to notice some stiffness, now she cant even sit cross legged on the floor any more due to her left hip. Sideways motion is painful. She feels the hills brought her pain on. 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 Treatment Goals Patient/Caregiver Goals Pt would be able to return to standing from a squat and be able to sit cross legged on the floor without pain. She would also like to be able to walk uphills without pain Prior Functional Status Baseline Function- ADL's Independent Baseline Function- Mobility Independent Baseline Function- Gait was able to ambulate hills prior to July Current Functional Impairments (Reported) Functional Limitations- Mobility/Gait pain walking hills, limitations in hip mobility especially with hip ER and sitting crosslegged on the floor. PT-OP-C Subjective Start: 02/14/20 14:41 Freq: Status: Active Protocol: Document 08/14/20 13:00 [facility] (Rec: 08/14/20 13:17 [facility] [id number]) OP-PT Subjective Patient Comments Patient Comments pt notes that at times she will feel her left SI with walking but if she tightens her core it really helps. Pt reports her flexibility is better, she is able to sit cross legged now, it still pulls on the left but she is able to do it. She feels good improvement overall and is ready to work independently on her own with her HEP Patient Reported Progress Improving PT-OP-F Manual Assessment Start: 02/14/20 14:41 Freq: Status: Active Protocol: Document 02/14/20 14:30 [facility] (Rec: 02/17/20 14:12 [facility] [email or web address]) Manual Assessments Soft Tissue Assessment Soft Tissue Mobility Assessment tightness in the ITB and iliopsoas fascial tissue L>R, adductor tissue B Joint Mobility Assessment Joint Mobility Assessment decreased anterior joint mobility of the left hip for hip ER PT-OP-J Posture/Palpation/Skin Start: 02/14/20 14:41 Freq: Status: Active Protocol: Document 02/14/20 14:30 [facility] (Rec: 02/17/20 14:12 [facility] [email or web address]) Palpation Assessment Location left lateral hip, greater trochanter Palpation Location left lateral hip, greater trochanter Palpation Findings Tenderness Palpation Details tenderness on the left lateral hip in the proximity of the bursa PT-OP-K Range of Motion Start: 02/14/20 14:41 Freq: Status: Active Protocol: Document 04/15/20 17:58 [facility] (Rec: 04/15/20 17:59 [facility] [email or web address]) Hip Goniometric Range of Motion Hip left Flexion w/Knee Flexed 115 Straight Leg Raise 85 Extension 5 Abduction 20 Internal Rotation 15 External Rotation 10 Comments pt has shown changes with improved hip ER and hip extension PT-OP-Q Treatments Start: 02/14/20 14:41 Freq: Status: Active Protocol: Document 08/14/20 13:00 [facility] (Rec: 08/14/20 18:08 [facility] [email or web address]) Therapeutic Exercises Supine Exercises TA with marching Reps/Minutes x 10 reps adductor squeeze with ball Reps/Minutes 10 reps hold x 5 seconds Comments used as a self correction for SI joint bridges with hip Er Reps/Minutes 10-20 modified piriformis stretch Supine Exercise Name modified piriformis stretch Reps/Minutes 2 x 30-60 sec [facility] wipers Reps/Minutes x10 reps seated adductor stretch with self massage Comments seated adductor stretch with self massage iliopsoas stretch in supine Side left Reps/Minutes hold 30 sec to 1 min Comments aldo test position Manual Therapy Treatment Soft Tissue Mobilization adductor release Body Location left adductor release MFR ITB, quad on the left Body Location ITB, Quad, iliposoas PT-OP-R Modalities Start: 02/21/20 17:51 Freq: Status: Active Protocol: Document 03/04/20 17:57 [facility] (Rec: 03/04/20 17:57 [facility] [id number]) Ultrasound Therapy Treatment left ITB proximal Treatment Duration (minutes) 8 Patient Position Sidelying Coupling Medium Ultrasound Gel Applicator Size (cm2) 5 Frequency Setting (mHz) 1 Duty Cycle 100% Intensity Setting (w/cm2) 1.5 PT-OP-T Assessment and Plan Start: 02/14/20 14:41 Freq: Status: Active Protocol: Document 08/14/20 13:00 [facility] (Rec: 08/14/20 13:17 [facility] [id number]) Physical Therapy Assessment Goals left lateral hip pain rated 3-6/10 Impairment Left lateral hip pain rated 3- 6/10 Trace Evidence Technician Goal (LTG) Maura is able to decrease pain in her hips to 2 or less and she is able to return to walking including hills without increased complaints of pain. good progress up to 2-3 miles of walking now pain ranges form a 2-3/10 Assessment Summary Assessment OVerall Maura is doing much better with both ROM and decreased pain levels. SHe will be discharged from PT at this time Physical Therapy Plan Discharge Physical Therapy Discharge Reasons Goals Met
--- NOTE | 2020-08-14 18:10 | PT.OPDS ---
Current Diagnoses Other bursitis of hip, left hip (08/14/20) Visit Care Team Role Provider Type Syed Perez MD Attending Provider Physician Primary Care Provider Referring Provider Specialty: Internal Medicine Address: [address] [place] [address], [address], [place], [address] Email: [email or web address] Visit Number Visit Number 24 Discharge Summary PT-OP-B Current Condition Start: 02/14/20 14:41 Freq: Status: Active Protocol: Document 02/14/20 14:44 [facility] (Rec: 02/14/20 16:33 [facility] [id number]) Current Condition History of Current Condition Onset Date July 2019 Current Complaints left lateral hip and knee pain , hip pain with hills and sleeping left side History of Current Condition 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 Has a history of hip bursitis. This new hip pain felt different to her. It started in July and by August she was more painful. She had been walking a lot of hills and needed to stop. Pain is lateral and it goes to the top of her knee. She also notes her knee cap will tend to sublux. She does a lot of walking and will get pain down the front of her thigh. 2015 started to notice some stiffness, now she cant even sit cross legged on the floor any more due to her left hip. Sideways motion is painful. She feels the hills brought her pain on. 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 Treatment Goals Patient/Caregiver Goals Pt would be able to return to standing from a squat and be able to sit cross legged on the floor without pain. She would also like to be able to walk uphills without pain Prior Functional Status Baseline Function- ADL's Independent Baseline Function- Mobility Independent Baseline Function- Gait was able to ambulate hills prior to July Current Functional Impairments (Reported) Functional Limitations- Mobility/Gait pain walking hills, limitations in hip mobility especially with hip ER and sitting crosslegged on the floor. PT-OP-C Subjective Start: 02/14/20 14:41 Freq: Status: Active Protocol: Document 08/14/20 13:00 [facility] (Rec: 08/14/20 13:17 [facility] [id number]) OP-PT Subjective Patient Comments Patient Comments pt notes that at times she will feel her left SI with walking but if she tightens her core it really helps. Pt reports her flexibility is better, she is able to sit cross legged now, it still pulls on the left but she is able to do it. She feels good improvement overall and is ready to work independently on her own with her HEP Patient Reported Progress Improving PT-OP-F Manual Assessment Start: 02/14/20 14:41 Freq: Status: Active Protocol: Document 02/14/20 14:30 [facility] (Rec: 02/17/20 14:12 [facility] [id number]) Manual Assessments Soft Tissue Assessment Soft Tissue Mobility Assessment tightness in the ITB and iliopsoas fascial tissue L>R, adductor tissue B Joint Mobility Assessment Joint Mobility Assessment decreased anterior joint mobility of the left hip for hip ER PT-OP-J Posture/Palpation/Skin Start: 02/14/20 14:41 Freq: Status: Active Protocol: Document 02/14/20 14:30 [facility] (Rec: 02/17/20 14:12 [facility] [id number]) Palpation Assessment Location left lateral hip, greater trochanter Palpation Location left lateral hip, greater trochanter Palpation Findings Tenderness Palpation Details tenderness on the left lateral hip in the proximity of the bursa PT-OP-K Range of Motion Start: 02/14/20 14:41 Freq: Status: Active Protocol: Document 04/15/20 17:58 [facility] (Rec: 04/15/20 17:59 [facility] [id number]) Hip Goniometric Range of Motion Hip left Flexion w/Knee Flexed 115 Straight Leg Raise 85 Extension 5 Abduction 20 Internal Rotation 15 External Rotation 10 Comments pt has shown changes with improved hip ER and hip extension PT-OP-T Assessment and Plan Start: 02/14/20 14:41 Freq: Status: Active Protocol: Document 08/14/20 13:00 [facility] (Rec: 08/14/20 13:17 [facility] [id number]) Physical Therapy Assessment Goals tightness of the ITB, Quadriceps, iliopsoas L Impairment Tightness of the ITB, quadriceps, iliopsoas on the left Longterm Goal (LTG) Decrease soft tissue tightness with manual therapy techniques and stretches. Pt is no longer tender to palpation over the greater trochanter and she has a negative aldo test. good progress especially with improved iliopsoas length LTG Duration 8 weeks Decreased left hip ROM into ER Impairment Decreased left hip ROM into hip ER Short Term Goal (STG) Maura is educated on specific stretches to lengthen her ITB and iliopsoas to improved anterior glide of the hip and improve hip ER. She is able to improve hip ER to 10 degrees or better. excellent progress STG Duration 4 weeks Longterm Goal (LTG) Maura is able to return to sitting on the floor cross legged for meditation activities without increased pain. good progress LTG Duration 8 weeks left lateral hip pain rated 3-6/10 Impairment Left lateral hip pain rated 3- 6/10 Longterm Goal (LTG) Maura is able to decrease pain in her hips to 2 or less and she is able to return to walking including hills without increased complaints of pain. good progress up to 2-3 miles of walking now pain ranges form a 2-3/10 One Impairment Activity Limitations Sourcing Consultant Goal (LTG) Pt to report return to biking three miles with no impact on her the following day LTG Duration 08/24/17 Assessment Summary Assessment OVerall Maura is doing much better with both ROM and decreased pain levels. SHe will be discharged from PT at this time Physical Therapy Plan Discharge Physical Therapy Discharge Reasons Goals Met Discharge Comments Pt has made good progress with her hip and is ready to work on her exercises Independently
== END 2020-08-15 14:18 | disposition home or self-care (01) ==
LOC: PHYS 13:00
PROVIDERS: PCP Student in an Organized Health Care Education/Training Program; Referring Provider Student in an Organized Health Care Education/Training Program; Visit Provider Student in an Organized Health Care Education/Training Program
DX: M70.72 Other bursitis of hip, left hip (principal)
CPT/HCPCS: 97035; 97110; 97140; 97161; 97535

== ENCOUNTER → 2020-08-14 14:17 | Outpatient (CLI) | payer OTHER, SELFPAY ==
[2020-08-15 16:31] LABS: Fecal Immunochemical Test Negative (Negative)
== END ==
PROVIDERS: PCP Student in an Organized Health Care Education/Training Program; Referring Provider Student in an Organized Health Care Education/Training Program; Visit Provider Student in an Organized Health Care Education/Training Program
DX: Z12.11 Encounter for screening for malignant neoplasm of colon (principal)
CPT/HCPCS: 82274

== ENCOUNTER → 2021-01-09 11:27 | Outpatient (CLI) | payer OTHER, SELFPAY ==
--- NOTE | 2021-01-09 | DI.MG.S_ITS ---
BILATERAL DIGITAL SCREENING MAMMOGRAM 3D/2D WITH CAD: 01/09/2021 CLINICAL: Routine screening. Comparison is made to exams dated: 01/05/2020 mammogram, 07/05/2018 mammogram, and 04/25/2017 mammogram - [facility]. The tissue of both breasts is heterogeneously dense. This may lower the sensitivity of mammography. Current study was also evaluated with a Computer Aided Detection (CAD) system. There are benign calcifications in the right breast. No significant masses, calcifications, or other findings are seen in either breast. There has been no significant interval change. IMPRESSION: BENIGN There is no mammographic evidence of malignancy. A 1 year screening mammogram is recommended. This exam was interpreted at Station ID: [id number]. NOTE: For mammograms, a report in lay terms will be sent to the patient. Approximately 15% of breast malignancies will not be visualized mammographically. In the management of a palpable breast mass, a negative mammogram must not discourage biopsy of a clinically suspicious lesion. Electronically Signed By: Margarita newsome/lenora:01/09/2021 17:07:09 letter sent: Normal Exam ACR BI-RADS Category 2: Benign Finding(s) [id number]
== END ==
PROVIDERS: PCP Student in an Organized Health Care Education/Training Program; Referring Provider Student in an Organized Health Care Education/Training Program; Visit Provider Student in an Organized Health Care Education/Training Program
DX: Z12.31 Encounter for screening mammogram for malignant neoplasm of breast (principal)
CPT/HCPCS: 77063; 77067

== ENCOUNTER → 2021-04-30 15:57 | Outpatient (CLI) | payer OTHER, SELFPAY ==
[2021-04-30 16:24] LABS: Hematocrit 37.4 % (36-46); Hemoglobin 12.7 g/dL (12.0-16.0)
[2021-04-30 16:37] LABS: BUN Creatinine Ratio 29.3 (6-22); Blood Urea Nitrogen 22 mg/dL (7-17); Calcium 9.4 mg/dL (8.4-10.2); Carbon Dioxide 29 mmol/L (22-32); Chloride 103 mmol/L (98-107); Estimated Glomerular Filt Rate > 60.0 mL/min (>60); Glucose 110 mg/dL (80-110); HEMOLYSIS < 15 (0-50); Potassium 3.7 mmol/L (3.4-5.1); Sodium 137 mmol/L (137-145)
[2021-04-30 16:38] LABS: Creatinine Urine Random 58.6 mg/dL; Protein (Total) Urine Random 17 mg/dL (0-12); Protein Creatinine Ratio Urine 0.29 GRAM/24H
== END ==
PROVIDERS: PCP Student in an Organized Health Care Education/Training Program; Referring Provider Student in an Organized Health Care Education/Training Program; Visit Provider Student in an Organized Health Care Education/Training Program
DX: N05.9 Unspecified nephritic syndrome with unspecified morphologic changes (principal); D64.9 Anemia, unspecified; R80.9 Proteinuria, unspecified
CPT/HCPCS: 36415; 80048; 82570; 84156; 85014; 85018

== ENCOUNTER → 2021-12-07 10:34 | Outpatient (CLI) | payer OTHER, SELFPAY ==
[2021-12-07 12:17] LABS: Hematocrit 40.5 % (36-46); Hemoglobin 13.1 g/dL (12.0-16.0)
[2021-12-07 13:15] LABS: BUN Creatinine Ratio 24.3 (6-22); Blood Urea Nitrogen 18 mg/dL (7-17); Calcium 9.4 mg/dL (8.4-10.2); Carbon Dioxide 30 mmol/L (22-32); Chloride 101 mmol/L (98-107); Estimated Glomerular Filt Rate > 60 mL/min (>60); Glucose 104 mg/dL (80-110); HEMOLYSIS < 15 (0-50); Potassium 4.3 mmol/L (3.4-5.1); Sodium 139 mmol/L (137-145)
[2021-12-07 15:06] LABS: Creatinine Urine Random 16.6 mg/dL; Protein (Total) Urine Random 17 mg/dL (0-12); Protein Creatinine Ratio Urine 1.02 GRAM/24H
== END ==
PROVIDERS: Family Provider Student in an Organized Health Care Education/Training Program; PCP Student in an Organized Health Care Education/Training Program; Referring Provider Student in an Organized Health Care Education/Training Program; Visit Provider Student in an Organized Health Care Education/Training Program
DX: N05.9 Unspecified nephritic syndrome with unspecified morphologic changes (principal); D64.9 Anemia, unspecified; R80.9 Proteinuria, unspecified
CPT/HCPCS: 36415; 80048; 82570; 84156; 85014; 85018

== ENCOUNTER → 2022-01-21 16:37 | Outpatient (CLI) | payer OTHER, SELFPAY ==
--- NOTE | 2022-01-21 16:37 | DI.MG.S_ITS ---
BILATERAL DIGITAL SCREENING MAMMOGRAM 3D/2D WITH CAD: 01/21/2022 CLINICAL: Routine screening. Comparison is made to exams dated: 01/09/2021 mammogram, 01/05/2020 mammogram, and 07/05/2018 mammogram - [facility]. Both breasts are heterogeneously dense, which may obscure small masses (category c / 51-75% glandular tissue). Current study was also evaluated with a Computer Aided Detection (CAD) system. There are benign calcifications in the right breast. No significant masses, calcifications, or other findings are seen in either breast. There has been no significant interval change. IMPRESSION: BENIGN There is no mammographic evidence of malignancy. A 1 year screening mammogram is recommended. Based on the Tyrer Cuzick model (a risk assessment model) the patient's lifetime risk is 10.1% and her 10 year risk is 4.5%. According to the ACR, ACS, and NCCN guidelines, an annual breast MRI exam along with mammogram is recommended if the patient's lifetime risk is 20% or greater. This exam was interpreted at Station ID: [id number]. NOTE: For mammograms, a report in lay terms will be sent to the patient. Approximately 15% of breast malignancies will not be visualized mammographically. In the management of a palpable breast mass, a negative mammogram must not discourage biopsy of a clinically suspicious lesion. Electronically Signed By: Tavares Chin M.D., jr/lenora:01/22/2022 10:30:06 letter sent: Normal Exam ACR BI-RADS Category 2: Benign Finding(s) [id number]
== END ==
PROVIDERS: Family Provider Student in an Organized Health Care Education/Training Program; PCP Student in an Organized Health Care Education/Training Program; Referring Provider Student in an Organized Health Care Education/Training Program; Visit Provider Student in an Organized Health Care Education/Training Program
DX: Z12.31 Encounter for screening mammogram for malignant neoplasm of breast (principal)
CPT/HCPCS: 77063; 77067

== ENCOUNTER 2022-01-26 09:30 | Emergency (ER) | payer OTHER, SELFPAY ==
[2022-01-26] VITALS (7 sets, daily range): BP systolic 149–197; BP diastolic 70–92; PULSE 96–118; RESP 15–35; TEMP 36.9; O2SAT 96–98; BMI 28.3
--- NOTE | 2022-01-26 09:59 | DI.RAD.S_ITS ---
PROCEDURE: XR CHEST 1V INDICATIONS: chest pain TECHNIQUE: One view of the chest was acquired. COMPARISON: None. FINDINGS: Surgical changes and devices: None. Lungs and pleura: Lungs are clear. No pleural effusions or pneumothorax. Mediastinum: Mediastinal contours appear normal. Heart size is normal. Bones and chest wall: No suspicious bony lesions. Overlying soft tissues appear unremarkable. IMPRESSION: No acute cardiopulmonary findings Approved by: Jamie Ochoa M.D. on 01/26/2022 at 10:38
--- NOTE | 2022-01-26 10:05 | ED.GENADULT ---
HPI - General Adult General Chief complaint: Hypertension Stated complaint: high BP for 24 hours Time Seen by Provider: 01/26/22 09:45 History of Present Illness HPI narrative: Patient is a 61-year-old female who has a history of hypertension hyperlipidemia membranous glomerulonephropathy, Catherine- Danlos syndrome, presenting today with elevated blood pressure. She says she thinks she felt it coming on for the last couple of days she is felt a little anxious. She is checked her blood pressure multiple times over last 24 hours and it all has been greater than 170. She denies any headache she has no real chest pain or palpitations. She does have some left arm achiness but she sometimes always has that. She says that she had some autonomic dysfunction after she had H1N1 a number of years ago. She can not take many medication she is on clonidine regularly she is careful not to miss a dose. She also takes losartan. She says and admits to being very anxious, and is quite worried about her blood pressure. However she has no shortness of breath no abdominal pain no nausea no vomiting no numbness no tingling no weakness. She says that she just got over COVID she was diagnosed on ving, she had very mild symptoms. However based on what happened when she had H1N1 she thinks that her blood pressure may or may not be related. Related Data Home Medications Medication Instructions Recorded Confirmed [CO-Q-10] 400 mg PO QDAY ##0 10/07/16 02/04/21 aspirin 81 mg chewable tablet 81 mg PO QDAY ##0 10/07/16 02/04/21 fexofenadine 180 mg tablet 180 mg PO QDAY PRN ##0 11/07/18 02/04/21 atorvastatin 40 mg tablet 40 mg PO BEDTIME 04/09/20 02/04/21 clobetasol 0.05 % topical gel 1 applic topical BEDTIME 08/04/20 02/04/21 Previous Rx's Medication Instructions Recorded fluticasone propionate 50 1 spray intranasal QDAY ##1 12/28/17 mcg/actuation nasal spray,suspension (Flonase Allergy Relief) famotidine 20 mg tablet 20 mg PO BIDP PRN acid reflux #60 11/15/18 tabs trazodone 50 mg tablet 100 mg PO HS PRN sleep #180 tabs 12/23/21 methocarbamol 500 mg tablet 500 mg PO TID PRN pain, moderate 02/10/21 #270 tabs losartan 100 mg tablet 100 mg PO DAILY #90 tabs 08/05/21 diclofenac sodium 3 % topical gel 1 applic topical BID #100 grams 11/02/21 diazepam 5 mg tablet 5 mg PO DAILY PRN muscle spasm #20 11/03/21 tabs clonidine HCl 0.1 mg tablet 0.1 mg PO TID #270 tabs 11/10/21 estradiol 0.01% (0.1 mg/gram) 0.5 g vaginal DAILY #42.5 grams 12/11/21 vaginal cream estradiol 10 mcg vaginal tablet 10 mcg vaginal 3XW #36 tabs 12/22/21 (Vagifem) hydrocodone 5 mg-acetaminophen 325 1 tab PO Q6HP PRN pain #60 tabs 01/05/22 mg tablet oxycodone 20 mg tablet,crush 20 mg PO Q8H joint pain #90 tabs 01/05/22 resistant,extended release 12 hr thyroid (pork) 60 mg tablet 60 mg PO QDAY #30 tabs 01/11/22 ([place] Thyroid) Allergies Allergy/AdvReac Type Severity Reaction Status Date / Time Penicillins [PENICILLINS] Allergy Unknown RASH Verified 02/04/21 15:59 Beta-Blockers AdvReac Intermediate NAUSEA, Verified 02/04/21 15:59 (Beta-Adrenergic Bloc TACHYCARDIA, [BETA-BLOCKERS SWEATS (BETA-ADRENERGIC BLOC] lisinopril [LISINOPRIL] AdvReac Intermediate NAUSEA, Verified 02/04/21 15:59 TACHYCARDIA, SWEATING NSAIDS (Non-Steroidal AdvReac Intermediate Bleeding Verified 02/04/21 15:59 Anti-Inflamma Review of Systems Review of Systems Narrative: GENERAL: Denies chills, fatigue, malaise, fever, sweats, travel HEENT: Denies sinus pain, ear pain, sore throat, difficulty swallowing, neck pain RESPIRATORY: Denies dyspnea, cough, wheezing, hemoptysis, sputum. CARDIOVASCULAR: Denies chest pain, palpitations, orthopnea, edema GASTROINTESTINAL: Denies nausea, vomiting, abdominal pain, diarrhea, constipation, melena. : Denies dysuria, frequency, incontinence, hematuria, urinary retention, flank pain. MUSCULOSKELETAL: Denies weakness, joint pain, or bony pain SKIN: No rash, no erythema, no pruritus NEUROLOGIC: Denies weakness, dizziness, headache, numbness, change in speech, confusion PSYCHIATRIC: No concerning psychosocial issues. 12 point review of systems is negative except for those stated above and HPI Patient History Medical History (Updated 01/26/22 @ 11:16 by Kelsie Cody DO) Allergic rhinitis (~1969) Atrophic vulvovaginitis Chickenpox (~1969) Catherine-Danlos syndrome (1958) Endometriosis (~1971) Fibroids (~1989) Heavy menstrual period (1971) Hyperlipemia (2009) Hypertension (2008) Hypothyroidism (1993) Infertility (Unknown) Joint pain (~1989) Kidney disease (Unknown) Measles (~1959) Mumps (~1959) Painful menstrual periods (Unknown) Proteinuria (1971) Surgical History (Updated 08/29/17 @ 17:05 by Felicia Perry LPN) History of total abdominal hysterectomy and bilateral salpingo-oophorectomy (2002) Hx of laparoscopy (~1988) Family History (Updated 08/29/17 @ 17:10 by Felicia Perry LPN) Father Diabetes mellitus Hypertension Heart disease Stroke Mother Hyperlipidemia Dementia Osteoporosis Kyphosis Grandfather Diabetes mellitus Grandmother No problems noted. Grandfather Diabetes mellitus Stroke Grandmother Diabetes mellitus Social History Smoking Status: Never smoker alcohol intake: current substance use type: does not use Smoking Status: Never smoker Exam Initial Vital Signs Initial Vital Signs: Vital Signs Pulse Rate 116 H 01/26/22 09:39 Pulse Oximetry 97 01/26/22 09:39 GENERAL: Alert pleasant 61-year-old female and in no acute distress. HEENT: Head atraumatic,EOMI, pupils reactive, face symmetric, moist mucous membranes CARDIOVASCULAR: Regular rate and rhythm without murmurs, rubs or gallops. RESPIRATORY: Breath sounds equal bilaterally, no wheezes rales or rhonchi. ABDOMEN: Soft, nontender. Normoactive bowel sounds all 4 quadrants. No guarding or rebound. EXTREMITIES: Normal range of motion, no clubbing or edema. Neurovascularly intact NEUROLOGICAL: Alert and oriented x4.Normal gait and speech. SKIN: Warm, dry, no laceration, no petechiae, no rashes or lesions. Scores HEART Score Heart Score history: Slightly Suspicious Heart Score EKG: Normal Heart Score Age: 45-64 years old Heart Score risk factors: 1-2 risk factors Heart Score troponin: < or = to normal limit Heart Score Total: 2 Course Orders Ordered: ED Orders 01/26/22 09:45 EKG-12 Lead Routine 01/26/22 09:53 Complete Blood Count AUTO DIFF Stat Comprehensive Metabolic Panel Stat Lipase Stat Magnesium Stat Partial Thromboplastin Time Stat Prothrombin Time INR Stat Troponin & CK Cardiac Panel Stat 01/26/22 09:59 XR chest 1V Stat 01/26/22 11:03 Urine Culture Stat Urine Microscopic Stat Discontinued Medications Aspirin (Aspirin 81 Mg Chew Tab) 324 mg PO NOW ONE Stop: 01/26/22 10:00 Last Admin: 01/26/22 10:28 Dose: Not Given Documented By: NEERAJ Vital Signs Vital signs: Vital Signs - 8 hr 01/26/22 11:03 01/26/22 11:16 01/26/22 11:16 Pulse Rate 96 H 96 H Respiratory Rate 22 35 H Blood Pressure 149/70 H Pulse Oximetry 96 Medical Decision Making Lab Data Result diagrams: 01/26/22 09:53 01/26/22 09:53 Labs: Lab Results 01/26/22 01/26/22 01/26/22 Range/Units 09:53 09:53 09:53 WBC 7.3 (4.5-11.0) X10^3/uL RBC 4.45 (4.0-5.2) X10^6/uL Hgb 13.0 (12.0-16.0) g/dL Hct 39.5 (36-46) % MCV 88.8 (80-100) fL MCH 29.2 (26-34) PG MCHC 32.9 (30-36) % RDW 13.6 (11.6-14.8) % Plt Count 549 H (150-400) X10^3/uL Neut % (Auto) 84.5 H (50-75) % Lymph % (Auto) 10.9 L (25-40) % [place] % (Auto) 3.4 (3-14) % Eos % (Auto) 0.6 L (2-4) % Baso % (Auto) 0.6 (0-2) % Neut # (Auto) 6200 (4220-8312) /uL Lymph # (Auto) 800 L (3467-9211) /uL [place] # (Auto) 200 (0-900) /uL Eos # (Auto) 0 (0-450) /uL Baso # (Auto) 0 (0-100) /uL PT 11.9 (10.1-12.7) SECONDS INR 1.0 (0.9-1.3) APTT 31 (26-36) SECONDS Sodium 140 (137-145) mmol/L Potassium 3.4 (3.4-5.1) mmol/L Chloride 103 (98-107) mmol/L Carbon Dioxide 27 (22-32) mmol/L BUN 13 (7-17) mg/dL Creatinine 0.64 (0.52-1.04) mg/dL Estimated GFR > 60 (>60) mL/min BUN/Creatinine Ratio 20.3 (6-22) Glucose 180 H (80-110) mg/dL Calcium 9.4 (8.4-10.2) mg/dL Magnesium 1.6 (1.6-2.3) mg/dL Total Bilirubin 0.5 (0.2-1.3) mg/dL AST 28 (14-36) IU/L ALT 30 (<35) IU/L Alkaline Phosphatase 67 (38-126) U/L Total Creatine Kinase 65 (30-135) U/L CK-MB (CK-2) TNP CK-MB (CK-2) Rel Index TNP Troponin I < 0.012 (0.01-0.034) ng/mL Total Protein 8.0 (6.3-8.2) g/dL Albumin 4.5 (3.5-5.0) g/dL Globulin 3.5 (1.7-4.1) g/dL Albumin/Globulin Ratio 1.3 (1.0-2.8) Lipase 32 (23-300) U/L Urine RBC (0-5/HPF) Urine WBC (0-5/HPF) Ur Squamous Epith Cells (0-5/HPF) Urine Bacteria (None) Ur Culture Indicated? 01/26/22 Range/Units 11:03 WBC (4.5-11.0) X10^3/uL RBC (4.0-5.2) X10^6/uL Hgb (12.0-16.0) g/dL Hct (36-46) % MCV (80-100) fL MCH (26-34) PG MCHC (30-36) % RDW (11.6-14.8) % Plt Count (150-400) X10^3/uL Neut % (Auto) (50-75) % Lymph % (Auto) (25-40) % [place] % (Auto) (3-14) % Eos % (Auto) (2-4) % Baso % (Auto) (0-2) % Neut # (Auto) (1692-2253) /uL Lymph # (Auto) (1999-8974) /uL [place] # (Auto) (0-900) /uL Eos # (Auto) (0-450) /uL Baso # (Auto) (0-100) /uL PT (10.1-12.7) SECONDS INR (0.9-1.3) APTT (26-36) SECONDS Sodium (137-145) mmol/L Potassium (3.4-5.1) mmol/L Chloride (98-107) mmol/L Carbon Dioxide (22-32) mmol/L BUN (7-17) mg/dL Creatinine (0.52-1.04) mg/dL Estimated GFR (>60) mL/min BUN/Creatinine Ratio (6-22) Glucose (80-110) mg/dL Calcium (8.4-10.2) mg/dL Magnesium (1.6-2.3) mg/dL Total Bilirubin (0.2-1.3) mg/dL AST (14-36) IU/L ALT (<35) IU/L Alkaline Phosphatase (38-126) U/L Total Creatine Kinase (30-135) U/L CK-MB (CK-2) CK-MB (CK-2) Rel Index Troponin I (0.01-0.034) ng/mL Total Protein (6.3-8.2) g/dL Albumin (3.5-5.0) g/dL Globulin (1.7-4.1) g/dL Albumin/Globulin Ratio (1.0-2.8) Lipase (23-300) U/L Urine RBC None seen (0-5/HPF) Urine WBC None seen (0-5/HPF) Ur Squamous Epith Cells None seen (0-5/HPF) Urine Bacteria None seen (None) Ur Culture Indicated? Cult not indicated Urine Dip Bedside Urine Glucose Negative Bedside Urine Bilirubin - Negative Bedside Urine Ketone - Negative Urine Specific [place] 1.010 Bedside Urine Occult Blood +/- Bedside Urine pH 6.0 Bedside Urine Protein +/- 15 Bedside Urine Urobilinogen - Negative Bedside Urine Nitrite - Negative Bedside Urine Leukocytes - Negative Esterase Point of care testing: Urine Dip Bedside Urine Glucose Negative Bedside Urine Bilirubin - Negative Bedside Urine Ketone - Negative Urine Specific [place] 1.010 Bedside Urine Occult Blood +/- Bedside Urine pH 6.0 Bedside Urine Protein +/- 15 Bedside Urine Urobilinogen - Negative Bedside Urine Nitrite - Negative Bedside Urine Leukocytes - Negative Esterase ECG Data Interpretation: Normal sinus rhythm rate 110 NC interval 174 QRS [address] elevations T-wave inversion noted in lead 3 only no priors to compare MDM Narrative Medical decision making narrative: Patient is a 61-year-old female who has history of hypertension anxiety presenting today with elevated blood pressure. He is no sign of end-organ damage. Creatinine and troponin are within normal limits. Blood pressure has come down without any intervention. She is having intermittent chest discomfort lasting for about 30 seconds at a time is not typical for angina, and has been ongoing for 2 days with negative troponin with no EKG changes. I did discuss with her that she needs outpatient stress test and echocardiogram She has taken her blood pressure multiple times a couple minutes apart. We discussed taking it 1 to 2 times a day. She is understands that clonidine may cause rebound hypertension so she is quite good about taking her clonidine regularly. At this time I recommend that she follow-up with her primary care provider for adjustments of her medications. This time I see no need for any further workup. Differential diagnosis includes hypertensive urgency/emergency, acute coronary syndrome, dissection, CVA. Discharge Plan Departure Patient Disposition: Home Clinical Impression: Essential hypertension Instructions: DI for High Blood Pressure Activity Restrictions/Additional Instructions: *You have been diagnosed with hypertension *What to do: Please check your blood pressure 1 to 2 times daily approximately same time every day. Please pay attention to her symptoms such as shortness of breath headache chest pain etc. Please talk to your PCP about further cardiac testing including stress test and echocardiogram. If you should have worsening chest pain or shortness of breath please return to the ED, the ambulance is are running *Continue to take medications as directed At this time no changes in medication but please discuss with your PCP *Follow up with your primary care provider in 2-3 days or call [phone] *Return to ER if you should have blood pressure consistently greater than 195/105, chest pain headache shortness of or any new, worsening or concerning symptoms Prescriptions: No Action aspirin 81 MG tablet,chewable 81 mg PO QDAY Qty: 0 [CO-Q-10] 400 mg PO QDAY Qty: 0 fluticasone propionate [Flonase Allergy Relief] 50 mcg/actuation spray,suspension 1 spray Intranasal QDAY Qty: 1 11RF fexofenadine 180 mg tablet 180 mg PO QDAY PRNQty: 0 famotidine 20 mg tablet 20 mg PO BIDP PRN (Reason: acid reflux) Qty: 60 3RF trazodone 50 mg tablet 100 mg PO HS PRN (Reason: sleep) Qty: 180 3RF methocarbamol 500 mg tablet 500 mg PO TID PRN (Reason: pain, moderate) Qty: 270 3RF losartan 100 mg tablet 100 mg PO DAILY Qty: 90 3RF diclofenac sodium 3 % gel 1 applic TOP BID Qty: 100 11RF diazepam 5 mg tablet 5 mg PO DAILY PRN (Reason: muscle spasm) Qty: 20 1RF Rx Instructions: 60 day supply clonidine HCl 0.1 mg tablet 0.1 mg PO TID Qty: 270 1RF estradiol 0.01 % (0.1 mg/gram) cream 0.5 g vaginal DAILY Qty: 42.5 3RF Rx Instructions: Place a small amount on the external genitalia daily for 2 wks and then twice a week. estradiol [Vagifem] 10 mcg tablet 10 mcg VAG 3XW Qty: 36 3RF oxycodone 20 mg tablet,oral only,ext.rel.12 hr 20 mg PO Q8H Qty: 90 0RF Rx Instructions: EXEMPT hydrocodone-acetaminophen 5-325 mg tablet 1 tab PO Q6HP PRN (Reason: pain) Qty: 60 0RF Rx Instructions: EXEMPT thyroid (pork) [[place] Thyroid] 60 mg tablet 60 mg PO QDAY Qty: 30 0RF Rx Instructions: Patient needs to be seen before next refill request.12/10/21. atorvastatin 40 mg tablet 40 mg PO BEDTIME clobetasol 0.05 % gel 1 applic topical BEDTIME Referrals: Syed Perez MD [Primary Care Provider] - Visit Report Forms: Patient Portal/API
[2022-01-26 10:07] LABS: Add Manual Diff / Slide Review NO; Basophils Absolute Auto 0 /uL (0-100); Basophils Percent Auto 0.6 % (0-2); Eosinophils Absolute Auto 0 /uL (0-450); Eosinophils Percent Auto 0.6 % (2-4); Hematocrit 39.5 % (36-46); Lymphocytes Absolute Auto 800 /uL (1100-4500); Lymphocytes Percent Auto 10.9 % (25-40); Mean Corpuscular HGB Conc 32.9 % (30-36); Mean Corpuscular Hemoglobin 29.2 PG (26-34); Mean Corpuscular Volume 88.8 fL (80-100); Monocytes Absolute Auto 200 /uL (0-900); Monocytes Percent Auto 3.4 % (3-14); Neutrophils Absolute Auto 6200 /uL (1500-7000); Neutrophils Percent Auto 84.5 % (50-75); Platelet Count 549 X10^3/uL (150-400); Red Blood Cell Count 4.45 X10^6/uL (4.0-5.2); Red Cell Distribution Width 13.6 % (11.6-14.8); White Blood Cell Count 7.3 X10^3/uL (4.5-11.0)
[2022-01-26 10:15] LABS: Prothrombin Time 11.9 SECONDS (10.1-12.7)
[2022-01-26 10:19] LABS: Alanine Aminotransferase 30 IU/L (<35); Albumin 4.5 g/dL (3.5-5.0); Albumin Globulin Ratio 1.3 (1.0-2.8); Alkaline Phosphatase 67 U/L (38-126); Aspartate Aminotransferase 28 IU/L (14-36); BUN Creatinine Ratio 20.3 (6-22); Bilirubin Total 0.5 mg/dL (0.2-1.3); Blood Urea Nitrogen 13 mg/dL (7-17); Calcium 9.4 mg/dL (8.4-10.2); Carbon Dioxide 27 mmol/L (22-32); Chloride 103 mmol/L (98-107); Creatine Kinase 65 U/L (30-135); Estimated Glomerular Filt Rate > 60 mL/min (>60); Globulin 3.5 g/dL (1.7-4.1); Glucose 180 mg/dL (80-110); HEMOLYSIS < 15 (0-50); Lipase 32 U/L (23-300); Magnesium 1.6 mg/dL (1.6-2.3); Potassium 3.4 mmol/L (3.4-5.1); Sodium 140 mmol/L (137-145)
[2022-01-26 10:30] LABS: PTT Partial Thromboplastin Tim 31 SECONDS (26-36)
[2022-01-26 10:31] LABS: Troponin I < 0.012 ng/mL (0.01-0.034)
[2022-01-26 11:08] LABS: Bacteria Urine None Seen; Culture Indicated Urine Cult Not Indicated; RBC Urine None Seen (0-5/HPF); Squamous Epithelial Cell Urine None Seen (0-5/HPF); WBC Urine None Seen (0-5/HPF)
== END 2022-01-26 11:49 | disposition home or self-care (01) ==
PROVIDERS: Emergency Provider Emergency Medicine; Family Provider Student in an Organized Health Care Education/Training Program; PCP Student in an Organized Health Care Education/Training Program
DX: I10 Essential (primary) hypertension (principal)
CPT/HCPCS: 36415; 71045; 80053; 81003; 81015; 82550; 83690; 83735; 84484; 85025; 85610; 85730; 87086; 93005; 99283

== ENCOUNTER → 2022-02-03 12:39 | Outpatient (CLI) | payer OTHER, SELFPAY ==
--- NOTE | 2022-02-03 12:41 | DI.ECHO.S_ITS ---
[place] [facility]---------+ [facility] +---------+ : : [address] : : : : [id number] : : : : Phone: [phone]+ Echocardiogram Report + + :Name: HAKAN JENKINS Study Date: 02/03/2022 Height: 61.5 in: :[facility] ReadingLocation: Weight: 155 lb : : Gender: Female BSA: 1.7 m2 : :: 1960 Age: 61 yrs BP: 176/93 mmHg: :Reason For Study: HYPERTENSION, EHLER-DANLOS : :Ordering Physician: ELTON, : :KOSTA Performed By: Francia Miles : :Referring: KOSTA CONDE : + + Interpretation Summary The patient was in sinus tachycardia with heart rates between 95-111 bpm during the exam. The left ventricle is normal in size and wall thickness. The left ventricle is hyperdynamic. The ejection fraction is estimated to be 70-75%. There is no echo evidence for significant left ventricular outflow tract obstruction. The right ventricle is normal in size and function. No significant valvular pathology seen. The IVC is of normal diameter and collapses greater than 50% with a sniff. This suggests a low right atrial pressure of 3 mm Hg. The dimensions of the ascending aorta are normal. Procedure: A two-dimensional transthoracic echocardiogram with color flow and Doppler was performed. The study quality was technically adequate. Comparison is made with the echocardiogram of 02/02/2018. The patient was in sinus tachycardia with heart rates between 95-111 bpm during the exam. Left Ventricle: The left ventricle is normal in size and wall thickness. There is no echo evidence for significant left ventricular outflow tract obstruction. There is no thrombus. A false chord is noted (normal variant). The ejection fraction is estimated to be 70-75%. The left ventricle is hyperdynamic. There are no focal wall motion abnormalities. Diastolic function could not be accurately assessed due to tachycardia. Right Ventricle: The right ventricle is normal in size and function. Atria: The left atrial size is normal. Right atrial size is normal. There is no Doppler evidence for an interatrial shunt. The thickening of interatrial septum suggests lipomatous hypertrophy. Mitral Valve: The mitral valve is normal in structure and function. There is no mitral regurgitation noted. Aortic Valve: The aortic valve is grossly normal. The aortic valve is trileaflet. The aortic valve opens well. There is no aortic valve stenosis. No aortic regurgitation is present. Tricuspid Valve: The tricuspid valve is normal in structure and function. Pulmonary artery pressures cannot be estimated because of the lack of a measurable TR jet velocity. There is trace tricuspid regurgitation. Pulmonic Valve: The pulmonic valve is not well visualized. There is no pulmonic valvular regurgitation. Great Vessels: The aortic root is normal size. The dimensions of the ascending aorta are normal. The IVC is of normal diameter and collapses greater than 50% with a sniff. This suggests a low right atrial pressure of 3 mm Hg. Pericardium/ Pleura There is no pericardial effusion. There is an anterior echo-free space consistent with a fat pad. There is no pleural effusion. MMode/2D Measurements & Calculations LVIDd: 4.3 cm LVOT diam: 2.0 cm LVIDs: 2.9 cm Ao root diam: 3.1 cm FS: 31.1 % asc Aorta Diam: 3.3 cm IVSd: 0.89 cm Ao Arch Diam (Prox Trans): 2.4 cm LVPWd: 0.89 cm LV [place]. diameter/BSA (cm/m^2): 2.5 LV sys. diameter/BSA (cm/m^2): 1.7 LA A2 area: 18.3 cm2 RA long axis: 4.6 cm LA A4 area: 12.3 cm2 RA area: 11.4 cm2 LA length (vol): 4.4 cm RA vol: 24.1 ml LA vol: 43.8 ml RA : 14.1 ml/m2 LA vol index: 25.7 ml/m2 IVC diam: 0.85 cm RVD1 (basal): 3.2 cm RVD2 (mid): 2.4 cm TAPSE: 2.0 cm Doppler Measurements & Calculations Ao V2 max: 141.0 cm/sec LVOT Max Jarrett: 105.3 cm/sec Ao V2 mean: 101.8 cm/sec LV V1 max P.4 mmHg Ao max P.0 mmHg LV V1 VTI: 18.6 cm Ao mean P.6 mmHg CASSANDRA(I,D): 2.4 cm2 Ao V2 VTI: 24.8 cm CASSANDRA(V,D): 2.4 cm2 sev ratio: 0.75 CASSANDRA indexed to BSA (cm^2/m^2): 1.4 Med Peak E' Jarrett: 6.5 cm/sec PA V2 max: 103.9 cm/sec Lat Peak E' Jarrett: 8.5 cm/sec PA V2 mean: 68.7 cm/sec PA mean P.1 mmHg PA pr(Accel): 27.6 mmHg SV(LVOT): 60.7 ml Reading Physician:05:41 PM
== END ==
PROVIDERS: Family Provider Student in an Organized Health Care Education/Training Program; PCP Student in an Organized Health Care Education/Training Program; Referring Provider Student in an Organized Health Care Education/Training Program; Visit Provider Student in an Organized Health Care Education/Training Program
DX: Q79.60 Ehlers-Danlos syndrome, unspecified (principal); I16.0 Hypertensive urgency
CPT/HCPCS: 93306

== ENCOUNTER → 2022-02-12 15:43 | Outpatient (CLI) | payer OTHER, SELFPAY ==
[2022-02-12 16:32] LABS: Add Manual Diff / Slide Review NO; Basophils Absolute Auto 100 /uL (0-100); Basophils Percent Auto 1.1 % (0-2); Eosinophils Absolute Auto 200 /uL (0-450); Eosinophils Percent Auto 2.6 % (2-4); Hematocrit 37.2 % (36-46); Hemoglobin 12.4 g/dL (12.0-16.0); Lymphocytes Absolute Auto 1400 /uL (1100-4500); Lymphocytes Percent Auto 15.3 % (25-40); Mean Corpuscular HGB Conc 33.3 % (30-36); Mean Corpuscular Hemoglobin 29.6 PG (26-34); Mean Corpuscular Volume 88.8 fL (80-100); Monocytes Absolute Auto 600 /uL (0-900); Monocytes Percent Auto 6.6 % (3-14); Neutrophils Absolute Auto 6700 /uL (1500-7000); Neutrophils Percent Auto 74.4 % (50-75); Platelet Count 608 X10^3/uL (150-400); Red Blood Cell Count 4.19 X10^6/uL (4.0-5.2); Red Cell Distribution Width 13.4 % (11.6-14.8)
[2022-02-12 17:04] LABS: BUN Creatinine Ratio 20.8 (6-22); Blood Urea Nitrogen 16 mg/dL (7-17); Calcium 9.5 mg/dL (8.4-10.2); Carbon Dioxide 31 mmol/L (22-32); Chloride 101 mmol/L (98-107); Estimated Glomerular Filt Rate > 60 mL/min (>60); Glucose 104 mg/dL (80-110); HEMOLYSIS < 15 (0-50); Potassium 4.5 mmol/L (3.4-5.1); Sodium 138 mmol/L (137-145)
[2022-02-12 17:05] LABS: Appearance Urine UA CLEAR; Bilirubin Urine UA NEGATIVE (NEGATIVE); Color Urine UA YELLOW; Glucose Urine UA NEGATIVE (Negative); Ketones Urine UA NEGATIVE (NEGATIVE); Leukocyte Esterase Urine UA NEGATIVE (NEGATIVE); Nitrite Urine UA NEGATIVE (Negative); Occult Blood Urine UA TRACE-LYSED (Negative); Protein Urine UA TRACE (Negative); Urobilinogen Urine UA 0.2 E.U./dL (0.2)
[2022-02-12 18:14] LABS: Bacteria Urine None Seen; Culture Indicated Urine Cult Not Indicated; RBC Urine None Seen (0-5/HPF); WBC Urine None Seen (0-5/HPF)
[2022-02-12 18:27] LABS: Creatinine Urine Random 105.1 mg/dL; Protein (Total) Urine Random 13 mg/dL (0-12); Protein Creatinine Ratio Urine 0.12 GRAM/24H
== END ==
PROVIDERS: Family Provider Student in an Organized Health Care Education/Training Program; PCP Student in an Organized Health Care Education/Training Program; Referring Provider Student in an Organized Health Care Education/Training Program; Visit Provider Student in an Organized Health Care Education/Training Program
DX: N05.9 Unspecified nephritic syndrome with unspecified morphologic changes (principal); D70.9 Neutropenia, unspecified; D63.1 Anemia in chronic kidney disease; N30.00 Acute cystitis without hematuria; R80.9 Proteinuria, unspecified
CPT/HCPCS: 36415; 80048; 81001; 82570; 84156; 85025

== ENCOUNTER 2022-03-11 13:00 | Outpatient (RCR) | payer OTHER, SELFPAY ==
--- NOTE | 2021-07-22 14:28 | PT.OIE ---
Current Diagnoses Pain in left hip (07/22/21) Past Medical History (Last Updated 01/27/20 @ 11:37 by Nicole Hall PA-C) Allergic rhinitis (~1969) Atrophic vulvovaginitis Chickenpox (~1969) Catherine-Danlos syndrome (1958) Endometriosis (~1971) Fibroids (~1989) Heavy menstrual period (1971) Hyperlipemia (2009) Hypertension (2008) Hypothyroidism (1993) Infertility (Unknown) Joint pain (~1989) Kidney disease (Unknown) Measles (~1959) Mumps (~1959) Painful menstrual periods (Unknown) Proteinuria (1971) UTI (urinary tract infection) Past Surgical History (Last Updated 08/29/17 @ 17:05 by Felicia Perry LPN) History of total abdominal hysterectomy and bilateral salpingo-oophorectomy (2002) Hx of laparoscopy (~1988) Visit Care Team Role Provider Type Syed Perez MD Family Provider Physician Primary Care Provider Specialty: Internal Medicine Address: [address] [place] [address], [address], [facility] Email: [email or web address] Jose Luis Esquivel MD Attending Provider Physician Referring Provider Specialty: Orthopedics Orthopedic Surgery Physical Medicine and Rehab Address: [address] [place] [address], [id number] Email: [email or web address] Physical Therapy Initial Evaluation PT-OP-A Visit Information Start: 07/22/21 09:32 Freq: Status: Active Protocol: Document 07/22/21 11:20 [facility] (Rec: 07/22/21 14:38 [facility] [id number]) Out-Patient Physical Therapy Visit Information Visit Information Visit Type Initial Evaluation Visit Start Time 11:20 Visit Stop Time 12:05 Total Visit Minutes 45 Visit Number 1 Evaluation Information Evaluation Date 07/22/21 PT-OP-B Current Condition Start: 07/22/21 09:32 Freq: Status: Active Protocol: Document 07/22/21 11:20 [facility] (Rec: 07/22/21 12:11 [facility] [id number]) Current Condition History of Current Condition Onset Date slowly progressing since last course of PT in 2020 Current Complaints left hip pain decreased ROM and flare after certain activities alia ER History of Current Condition pt notes it has been a year since her last PT, she has been doing yoga and all her stretches, the left hip continues to be chronic and it continues to flare for no reason. She was diagnosed with bursitis and moderate arthritis, the pain seems to be primarily ITB both at the knee and at the hip attachments. She has burning pain at both of the ITB tendon attachments. Her left hip is her more dominant hip. She reports the pain comes on after specific activities and can range from 2-3/10 to 6/10 pain. She reports being limited with hip ER specifically. Treatment Goals Patient/Caregiver Goals Pt would like to gain as much ROM as she can and would like exercises and ideas for home that she can do to help her hip ROM and decrease her pain Prior Functional Status Baseline Function- ADL's Independent Baseline Function- Mobility Independent Current Functional Impairments (Reported) Functional Limitations- Mobility/Gait limited with hip mobility into hip ER, unable to sit crosslegged. Flare up after certain activities such as walking down hill and pain will rolling in bed to her back PT-OP-C Subjective Start: 07/22/21 09:32 Freq: Status: Active Protocol: Document 07/22/21 11:20 [facility] (Rec: 07/29/21 14:08 [facility] [id number]) Patient Questionnaires Lower Extremity Functional Scale LEFS Score 59 LEFS Impairment 40 to 59% Impaired (Score 32- 47) OP-PT Pain Assessment Pain Assessment Grid Paper Pain Assessment Grid Completed Yes Location left hip Intensity 6 Scale Used Numeric (0 - 10) Description With Movement Description- Other intermittent pain, hip ER limited and painful pain ranges from 2-6 Frequency Intermittent PT-OP-F Manual Assessment Start: 07/22/21 09:32 Freq: Status: Active Protocol: Document 07/22/21 11:20 [facility] (Rec: 07/29/21 14:08 [facility] [id number]) Manual Assessments Soft Tissue Assessment Soft Tissue Mobility Assessment tightness of the ITB both distallty and proximally quad tightness left iliopsoas tightness left Joint Mobility Assessment Joint Mobility Assessment Decreased posterior and lateral glide of the left hip PT-OP-J Posture/Palpation/Skin Start: 07/22/21 09:32 Freq: Status: Active Protocol: Document 07/22/21 11:20 [facility] (Rec: 07/29/21 09:43 [facility] [id number]) Palpation Assessment Location left hip Palpation Location LEFT ITB both proximal and distal attachments Palpation Findings Soft Tissue Tightness,Muscle Guarding,Tenderness PT-OP-K Range of Motion Start: 07/22/21 09:32 Freq: Status: Active Protocol: Document 07/22/21 11:20 [facility] (Rec: 07/29/21 14:14 [facility] [id number]) Hip Goniometric Range of Motion Hip Left Hip ROM WFL No Testing Position Supine Flexion w/Knee Flexed 110 Straight Leg Raise 55 External Rotation 5 Hip ROM Limitations Hip ROM Limitations Soft Tissue Tightness Comments limited in hip ER and hip flexion and hip extension due to iliopsoas tightness, + aldo test on the left PT-OP-Q Treatments Start: 07/22/21 09:32 Freq: Status: Active Protocol: Document 07/22/21 11:20 [facility] (Rec: 07/22/21 14:38 [facility] [id number]) Manual Therapy Treatment Manual Techniques MWM lateral hip distraction with Comments MWM lateral hip distraction with hip IR/ER/Flexion pt shown self capsule mob in quadruped with rock backs PT-OP-T Assessment and Plan Start: 07/22/21 09:32 Freq: Status: Active Protocol: Document 07/22/21 11:20 [facility] (Rec: 07/29/21 14:14 [facility] [id number]) Physical Therapy Assessment Rehab Potential Rehabilitation Potential Good Evaluation Complexity Number of Personal Factors/Comorbidities 0 Number of Body Systems Impaired 1-2 Clinical Presentation at Evaluation Stable Impairments Impairments Functional Mobility,Pain,ROM, Soft Tissue Mobility,Strength Goals 4 Impairment Myofascial tightness of the ITB Piano Stringer Goal (LTG) With manual therapy techniques we are able to improve the fascial mobility of the ITB helping to decrease compression of the bursa and the fibula head at the knee LTG Duration 12 weeks 3 Impairment Pain with walking down a incline or stairs Short Term Goal (STG) Maura is educated on self hip capsule stretches to help with improved hip flexion and ER STG Duration 4 weeks Shelter Goal (LTG) Maura notes a overall reduction of pain with stairs and walking down hill LTG Duration 12 weeks 2 Impairment hip pain ranging from 2-6/10 depending on activity as well as distal ITB pain at the knee Piano Stringer Goal (LTG) Maura reports overall reduction in her pain symptoms lowering her pain to 1-3/10 LTG Duration 12 weeks 1 Impairment Decreased hip ROM most significantly into flexion and ER, pt is unable to sit cross legged. Piano Stringer Goal (LTG) Maura notes more comfort with sitting cross legged and shows improvements with her hip ROM into ER and flexion Assessment Summary Assessment Maura is a 61 year old female who returns to PT today with worsening left sided intermittent hip pain and lack of hip ER. She does have moderate degenerative changes on Xray and she is hoping to gain some insight with PT as to how much ROM she is able to get out of her hip or is she limited due to arthritic changes. Her last course of PT we worked on hip mobilization which she tolerated well as well a stretches for home. She has continued with the stretches but despite this her hip feels that it is tighter. With examination today Maura last hip ROM into ER/IR and full hip flexion. She is tight in her iliopsoas, quad, and ITB and there is soft tissue guarding. I did work on lateral glides with hip flexion and she felt after treatment that her hip felt looser. I educated Maura on a gentle self hip mobilization she could try at home in a quadruped position and she tolerated this well. We will work on both mobilizations as well as soft tissue work to release the ITB and see if this can help her with her hip mobility on the left. Physical Therapy Plan Frequency and Duration Frequency of Treatment 2x/Week Duration of Treatment 12 Plan of Care Start Date 07/22/21 Plan of Care End Date 10/14/21 Therapeutic Interventions Therapeutic Interventions Home Exercise Program,Joint Mobilizations,Manual Therapy, Patient/Caregiver Education, Sensory Integration,Soft Tissue Mobilization, Therapeutic Exercises Next Visit Focus/Plan Next Note Type Treatment Note Next Visit Plan Work on manual therapy techniques for hip mobility into hip flexion/ER. MFR techniques for the ITB, Review HEP
--- NOTE | 2021-07-22 14:28 | PT.OPPOC ---
Physical, Occupational & Speech Therapy At [facility] Current Diagnoses Pain in left hip (07/22/21) Visit Care Team Role Provider Type Syed Perez MD Family Provider Physician Primary Care Provider Specialty: Internal Medicine Address: [address] [place] [address], [address], [address] Email: [email or web address] Jose Luis Esquivel MD Attending Provider Physician Referring Provider Specialty: Orthopedics Orthopedic Surgery Physical Medicine and Rehab Address: [address] [place] [address], [id number] Email: [email or web address] Plan Of Care PT-OP-T Assessment and Plan Start: 07/22/21 09:32 Freq: Status: Active Protocol: Document 07/22/21 11:20 [facility] (Rec: 07/29/21 14:14 [email or web address] [id number]) Physical Therapy Assessment Rehab Potential Rehabilitation Potential Good Evaluation Complexity Number of Personal Factors/Comorbidities 0 Number of Body Systems Impaired 1-2 Clinical Presentation at Evaluation Stable Impairments Impairments Functional Mobility,Pain,ROM, Soft Tissue Mobility,Strength Goals 4 Impairment Myofascial tightness of the ITB Detail Drafter Goal (LTG) With manual therapy techniques we are able to improve the fascial mobility of the ITB helping to decrease compression of the bursa and the fibula head at the knee LTG Duration 12 weeks 3 Impairment Pain with walking down a incline or stairs Short Term Goal (STG) Maura is educated on self hip capsule stretches to help with improved hip flexion and ER STG Duration 4 weeks Prison Goal (LTG) Maura notes a overall reduction of pain with stairs and walking down hill LTG Duration 12 weeks 2 Impairment hip pain ranging from 2-6/10 depending on activity as well as distal ITB pain at the knee Detail Drafter Goal (LTG) Maura reports overall reduction in her pain symptoms lowering her pain to 1-3/10 LTG Duration 12 weeks 1 Impairment Decreased hip ROM most significantly into flexion and ER, pt is unable to sit cross legged. Prison Goal (LTG) Maura notes more comfort with sitting cross legged and shows improvements with her hip ROM into ER and flexion Assessment Summary Assessment Maura is a 61 year old female who returns to PT today with worsening left sided intermittent hip pain and lack of hip ER. She does have moderate degenerative changes on Xray and she is hoping to gain some insight with PT as to how much ROM she is able to get out of her hip or is she limited due to arthritic changes. Her last course of PT we worked on hip mobilization which she tolerated well as well a stretches for home. She has continued with the stretches but despite this her hip feels that it is tighter. With examination today Maura last hip ROM into ER/IR and full hip flexion. She is tight in her iliopsoas, quad, and ITB and there is soft tissue guarding. I did work on lateral glides with hip flexion and she felt after treatment that her hip felt looser. I educated Maura on a gentle self hip mobilization she could try at home in a quadruped position and she tolerated this well. We will work on both mobilizations as well as soft tissue work to release the ITB and see if this can help her with her hip mobility on the left. Physical Therapy Plan Frequency and Duration Frequency of Treatment 2x/Week Duration of Treatment 12 Plan of Care Start Date 07/22/21 Plan of Care End Date 10/14/21 Therapeutic Interventions Therapeutic Interventions Home Exercise Program,Joint Mobilizations,Manual Therapy, Patient/Caregiver Education, Sensory Integration,Soft Tissue Mobilization, Therapeutic Exercises Next Visit Focus/Plan Next Note Type Treatment Note Next Visit Plan Work on manual therapy techniques for hip mobility into hip flexion/ER. MFR techniques for the ITB, Review HEP Plan of Care Dates Plan of Care Start Date 07/22/21 Plan of Care End Date 10/14/21 Electronically Signed by: Norah Yu, PT 07/29/21 0031 If you are in agreement with this Plan of Care, please return a signed and dated copy. I have reviewed this Plan of Care and certify that the skilled therapy services above are required to meet the patient?s needs. Physician Signature Date Printed Name and Credentials Clinical Instructor Signature Printed Name and Credentials
--- NOTE | 2021-08-06 15:53 | PT.OTN ---
Current Diagnoses Pain in left hip (08/06/21) Physical Therapy Treatment Note PT-OP-A Visit Information Start: 07/22/21 09:32 Freq: Status: Active Protocol: Document 08/06/21 15:48 [facility] (Rec: 08/06/21 15:53 [facility] [id number]) Out-Patient Physical Therapy Visit Information Visit Information Visit Type Treatment Note Visit Start Time 10:35 Visit Stop Time 11:20 Total Visit Minutes 45 Visit Number 2 PT-OP-B Current Condition Start: 07/22/21 09:32 Freq: Status: Active Protocol: Document 07/22/21 11:20 [facility] (Rec: 07/22/21 12:11 [facility] [id number]) Current Condition History of Current Condition Onset Date slowly progressing since last course of PT in 2020 Current Complaints left hip pain decreased ROM and flare after certain activities alia ER History of Current Condition pt notes it has been a year since her last PT, she has been doing yoga and all her stretches, the left hip continues to be chronic and it continues to flare for no reason. She was diagnosed with bursitis and moderate arthritis, the pain seems to be primarily ITB both at the knee and at the hip attachments. She has burning pain at both of the ITB tendon attachments. Her left hip is her more dominant hip. She reports the pain comes on after specific activities and can range from 2-3/10 to 6/10 pain. She reports being limited with hip ER specifically. Treatment Goals Patient/Caregiver Goals Pt would like to gain as much ROM as she can and would like exercises and ideas for home that she can do to help her hip ROM and decrease her pain Prior Functional Status Baseline Function- ADL's Independent Baseline Function- Mobility Independent Current Functional Impairments (Reported) Functional Limitations- Mobility/Gait limited with hip mobility into hip ER, unable to sit crosslegged. Flare up after certain activities such as walking down hill and pain will rolling in bed to her back PT-OP-C Subjective Start: 07/22/21 09:32 Freq: Status: Active Protocol: Document 08/06/21 15:48 [facility] (Rec: 08/06/21 15:53 [facility] [id number]) OP-PT Subjective Patient Comments Patient Comments Maura notes the icing and working on the self capsule mobs she feels like helped her these past 2 weeks PT-OP-F Manual Assessment Start: 07/22/21 09:32 Freq: Status: Active Protocol: Document 07/22/21 11:20 [facility] (Rec: 07/29/21 14:08 [facility] [id number]) Manual Assessments Soft Tissue Assessment Soft Tissue Mobility Assessment tightness of the ITB both distallty and proximally quad tightness left iliopsoas tightness left Joint Mobility Assessment Joint Mobility Assessment Decreased posterior and lateral glide of the left hip PT-OP-J Posture/Palpation/Skin Start: 07/22/21 09:32 Freq: Status: Active Protocol: Document 07/22/21 11:20 [facility] (Rec: 07/29/21 09:43 [facility] [id number]) Palpation Assessment Location left hip Palpation Location LEFT ITB both proximal and distal attachments Palpation Findings Soft Tissue Tightness,Muscle Guarding,Tenderness PT-OP-K Range of Motion Start: 07/22/21 09:32 Freq: Status: Active Protocol: Document 07/22/21 11:20 [facility] (Rec: 07/29/21 14:14 [facility] [id number]) Hip Goniometric Range of Motion Hip Left Hip ROM WFL No Testing Position Supine Flexion w/Knee Flexed 110 Straight Leg Raise 55 External Rotation 5 Hip ROM Limitations Hip ROM Limitations Soft Tissue Tightness Comments limited in hip ER and hip flexion and hip extension due to iliopsoas tightness, + aldo test on the left PT-OP-Q Treatments Start: 07/22/21 09:32 Freq: Status: Active Protocol: Document 08/06/21 15:48 [facility] (Rec: 08/06/21 15:53 [facility] [id number]) Manual Therapy Treatment Soft Tissue Mobilization ITB release Body Position right sidelying Comments ITB release iliopsoas release Body Location left iliopsoas Body Position supine and aldo test position quad MFR Mobilization Type Myofascial Release Intensity/Depth Superficial Body Position Hooklying Manual Techniques posterior capsule mobilization of the left hip Reps/Duration x 5 reps Comments grade III MWM lateral hip distraction with Comments MWM lateral hip distraction with hip IR/ER/Flexion pt shown self capsule mob in quadruped with rock backs PT-OP-T Assessment and Plan Start: 07/22/21 09:32 Freq: Status: Active Protocol: Document 08/06/21 15:48 [facility] (Rec: 08/06/21 15:53 [facility] [id number]) Physical Therapy Assessment Assessment Summary Assessment Maura is tolerating treatment well and presented with a improvement in her ER today following treatment. The ice and self mobs are helping and she is working on a home stretching program. Physical Therapy Plan Frequency and Duration Frequency of Treatment 2x/Week Duration of Treatment 12 Plan of Care Start Date 07/22/21 Plan of Care End Date 10/14/21 Therapeutic Interventions Therapeutic Interventions Home Exercise Program,Joint Mobilizations,Manual Therapy, Patient/Caregiver Education, Sensory Integration,Soft Tissue Mobilization, Therapeutic Exercises Next Visit Focus/Plan Next Note Type Treatment Note Next Visit Plan Work on manual therapy techniques for hip mobility into hip flexion/ER. MFR techniques for the ITB, Review HEP
--- NOTE | 2021-08-13 17:14 | PT.OTN ---
Current Diagnoses Pain in left hip (08/13/21) Physical Therapy Treatment Note PT-OP-A Visit Information Start: 07/22/21 09:32 Freq: Status: Active Protocol: Document 08/13/21 14:29 [facility] (Rec: 08/13/21 16:00 [facility] [id number]) Out-Patient Physical Therapy Visit Information Visit Information Visit Type Treatment Note Visit Start Time 14:30 Visit Stop Time 15:15 Total Visit Minutes 45 Visit Number 3 PT-OP-B Current Condition Start: 07/22/21 09:32 Freq: Status: Active Protocol: Document 07/22/21 11:20 [facility] (Rec: 07/22/21 12:11 [facility] [id number]) Current Condition History of Current Condition Onset Date slowly progressing since last course of PT in 2020 Current Complaints left hip pain decreased ROM and flare after certain activities alia ER History of Current Condition pt notes it has been a year since her last PT, she has been doing yoga and all her stretches, the left hip continues to be chronic and it continues to flare for no reason. She was diagnosed with bursitis and moderate arthritis, the pain seems to be primarily ITB both at the knee and at the hip attachments. She has burning pain at both of the ITB tendon attachments. Her left hip is her more dominant hip. She reports the pain comes on after specific activities and can range from 2-3/10 to 6/10 pain. She reports being limited with hip ER specifically. Treatment Goals Patient/Caregiver Goals Pt would like to gain as much ROM as she can and would like exercises and ideas for home that she can do to help her hip ROM and decrease her pain Prior Functional Status Baseline Function- ADL's Independent Baseline Function- Mobility Independent Current Functional Impairments (Reported) Functional Limitations- Mobility/Gait limited with hip mobility into hip ER, unable to sit crosslegged. Flare up after certain activities such as walking down hill and pain will rolling in bed to her back PT-OP-C Subjective Start: 07/22/21 09:32 Freq: Status: Active Protocol: Document 08/13/21 14:29 [facility] (Rec: 08/13/21 16:00 [facility] [id number]) OP-PT Subjective Patient Comments Patient Comments pt notes the ice is really helping, the littlist movements like stubbing her toe wiill aggravate. When she sleeps on her right side with a pillow between her knees she feels something has shifted with her hips and it is painful for a minute or so. PT-OP-F Manual Assessment Start: 07/22/21 09:32 Freq: Status: Active Protocol: Document 07/22/21 11:20 [facility] (Rec: 07/29/21 14:08 [facility] [id number]) Manual Assessments Soft Tissue Assessment Soft Tissue Mobility Assessment tightness of the ITB both distallty and proximally quad tightness left iliopsoas tightness left Joint Mobility Assessment Joint Mobility Assessment Decreased posterior and lateral glide of the left hip PT-OP-J Posture/Palpation/Skin Start: 07/22/21 09:32 Freq: Status: Active Protocol: Document 07/22/21 11:20 [facility] (Rec: 07/29/21 09:43 [facility] [id number]) Palpation Assessment Location left hip Palpation Location LEFT ITB both proximal and distal attachments Palpation Findings Soft Tissue Tightness,Muscle Guarding,Tenderness PT-OP-K Range of Motion Start: 07/22/21 09:32 Freq: Status: Active Protocol: Document 07/22/21 11:20 [facility] (Rec: 07/29/21 14:14 [facility] [id number]) Hip Goniometric Range of Motion Hip Left Hip ROM WFL No Testing Position Supine Flexion w/Knee Flexed 110 Straight Leg Raise 55 External Rotation 5 Hip ROM Limitations Hip ROM Limitations Soft Tissue Tightness Comments limited in hip ER and hip flexion and hip extension due to iliopsoas tightness, + aldo test on the left PT-OP-Q Treatments Start: 07/22/21 09:32 Freq: Status: Active Protocol: Document 08/13/21 14:29 [facility] (Rec: 08/13/21 16:00 [facility] [id number]) Therapeutic Exercises Sidelying Exercises sidelying clam shells Reps/Minutes 2 x 10 reps sidelying hip circles Reps/Minutes 2 x 10 reps sidelying abduction Reps/Minutes 2 x 10 reps Manual Therapy Treatment Soft Tissue Mobilization ITB release Body Position right sidelying Comments ITB release iliopsoas release Body Location left iliopsoas Body Position supine and aldo test position quad MFR Mobilization Type Myofascial Release Intensity/Depth Superficial Body Position Hooklying Manual Techniques MET for left pubic upslip Type MET Reps/Duration x 5 reps Comments left leg short in supine and this did improve after MET MWM lateral hip distraction with Comments MWM lateral hip distraction with hip IR/ER/Flexion pt shown self capsule mob in quadruped with rock backs PT-OP-T Assessment and Plan Start: 07/22/21 09:32 Freq: Status: Active Protocol: Document 08/13/21 14:29 [facility] (Rec: 08/13/21 16:00 [facility] [id number]) Physical Therapy Assessment Assessment Summary Assessment Left leg short in supine today so worked on balancing out the pelvis to see if this helps decrease hip pain. Worked on adding in sideling hip stabilization exercises today and Maura tolerated these well with the exception of clam shells which were painful for her so we help off on these. She is able to tolerate hip extension in quadruped. Pt is considering cortisone injection as hip still feels inflamed. She is tight in the ITB Physical Therapy Plan Frequency and Duration Frequency of Treatment 2x/Week Duration of Treatment 12 Plan of Care Start Date 07/22/21 Plan of Care End Date 10/14/21 Therapeutic Interventions Therapeutic Interventions Home Exercise Program,Joint Mobilizations,Manual Therapy, Patient/Caregiver Education, Sensory Integration,Soft Tissue Mobilization, Therapeutic Exercises Next Visit Focus/Plan Next Note Type Treatment Note Next Visit Plan Work on manual therapy techniques for hip mobility into hip flexion/ER. MFR techniques for the ITB, Review HEP
--- NOTE | 2021-08-18 16:33 | PT.OTN ---
Current Diagnoses Pain in left hip (08/18/21) Physical Therapy Treatment Note PT-OP-A Visit Information Start: 07/22/21 09:32 Freq: Status: Active Protocol: Document 08/18/21 14:28 [facility] (Rec: 08/18/21 15:17 [facility] [id number]) Out-Patient Physical Therapy Visit Information Visit Information Visit Type Treatment Note Visit Start Time 14:30 Visit Stop Time 15:15 Total Visit Minutes 45 Visit Number 4 PT-OP-B Current Condition Start: 07/22/21 09:32 Freq: Status: Active Protocol: Document 07/22/21 11:20 [facility] (Rec: 07/22/21 12:11 [facility] [id number]) Current Condition History of Current Condition Onset Date slowly progressing since last course of PT in 2020 Current Complaints left hip pain decreased ROM and flare after certain activities alia ER History of Current Condition pt notes it has been a year since her last PT, she has been doing yoga and all her stretches, the left hip continues to be chronic and it continues to flare for no reason. She was diagnosed with bursitis and moderate arthritis, the pain seems to be primarily ITB both at the knee and at the hip attachments. She has burning pain at both of the ITB tendon attachments. Her left hip is her more dominant hip. She reports the pain comes on after specific activities and can range from 2-3/10 to 6/10 pain. She reports being limited with hip ER specifically. Treatment Goals Patient/Caregiver Goals Pt would like to gain as much ROM as she can and would like exercises and ideas for home that she can do to help her hip ROM and decrease her pain Prior Functional Status Baseline Function- ADL's Independent Baseline Function- Mobility Independent Current Functional Impairments (Reported) Functional Limitations- Mobility/Gait limited with hip mobility into hip ER, unable to sit crosslegged. Flare up after certain activities such as walking down hill and pain will rolling in bed to her back PT-OP-C Subjective Start: 07/22/21 09:32 Freq: Status: Active Protocol: Document 08/18/21 14:28 [facility] (Rec: 08/18/21 15:17 [facility] [id number]) OP-PT Subjective Patient Comments Patient Comments she could tell working on the pelvis made a difference. She feels the tightness of her ITB at the fibula attachment. PT-OP-F Manual Assessment Start: 07/22/21 09:32 Freq: Status: Active Protocol: Document 07/22/21 11:20 [facility] (Rec: 07/29/21 14:08 [facility] [id number]) Manual Assessments Soft Tissue Assessment Soft Tissue Mobility Assessment tightness of the ITB both distallty and proximally quad tightness left iliopsoas tightness left Joint Mobility Assessment Joint Mobility Assessment Decreased posterior and lateral glide of the left hip PT-OP-J Posture/Palpation/Skin Start: 07/22/21 09:32 Freq: Status: Active Protocol: Document 07/22/21 11:20 [facility] (Rec: 07/29/21 09:43 [facility] [id number]) Palpation Assessment Location left hip Palpation Location LEFT ITB both proximal and distal attachments Palpation Findings Soft Tissue Tightness,Muscle Guarding,Tenderness PT-OP-K Range of Motion Start: 07/22/21 09:32 Freq: Status: Active Protocol: Document 07/22/21 11:20 [facility] (Rec: 07/29/21 14:14 [facility] [id number]) Hip Goniometric Range of Motion Hip Left Hip ROM WFL No Testing Position Supine Flexion w/Knee Flexed 110 Straight Leg Raise 55 External Rotation 5 Hip ROM Limitations Hip ROM Limitations Soft Tissue Tightness Comments limited in hip ER and hip flexion and hip extension due to iliopsoas tightness, + aldo test on the left PT-OP-Q Treatments Start: 07/22/21 09:32 Freq: Status: Active Protocol: Document 08/18/21 14:30 [facility] (Rec: 08/18/21 16:32 [facility] [id number]) Manual Therapy Treatment Soft Tissue Mobilization ITB release Mobilization Type Instrument Assisted Body Position Supine Comments ITB release with gusha, worked on distal ITB attachments iliopsoas release Body Location left iliopsoas Body Position supine and aldo test position Manual Techniques posterior capsule mobilization of the left hip Reps/Duration x 5 reps Comments grade III MWM lateral hip distraction with Comments MWM lateral hip distraction with hip IR/ER/Flexion pt shown self capsule mob in quadruped with rock backs PT-OP-T Assessment and Plan Start: 07/22/21 09:32 Freq: Status: Active Protocol: Document 08/18/21 14:28 [facility] (Rec: 08/18/21 15:17 [facility] [id number]) Physical Therapy Assessment Assessment Summary Assessment trial of US over the distal ITB attachment, instrument assisted MFR to ITB and Maura tolerated this well. Decreased tightness in the iliopsoas today Physical Therapy Plan Frequency and Duration Frequency of Treatment 2x/Week Duration of Treatment 12 Plan of Care Start Date 07/22/21 Plan of Care End Date 10/14/21 Therapeutic Interventions Therapeutic Interventions Home Exercise Program,Joint Mobilizations,Manual Therapy, Patient/Caregiver Education, Sensory Integration,Soft Tissue Mobilization, Therapeutic Exercises Modalities Electric Stimulation Next Visit Focus/Plan Next Note Type Treatment Note Next Visit Plan Work on manual therapy techniques for hip mobility into hip flexion/ER. MFR techniques for the ITB, Review HEP
--- NOTE | 2021-08-20 18:54 | PT.OTN ---
Current Diagnoses Pain in left hip (08/20/21) Physical Therapy Treatment Note PT-OP-A Visit Information Start: 07/22/21 09:32 Freq: Status: Active Protocol: Document 08/20/21 14:41 [facility] (Rec: 08/20/21 14:46 [facility] [id number]) Out-Patient Physical Therapy Visit Information Visit Information Visit Type Treatment Note Visit Start Time 14:40 Visit Stop Time 15:15 Total Visit Minutes 35 Visit Number 5 PT-OP-B Current Condition Start: 07/22/21 09:32 Freq: Status: Active Protocol: Document 07/22/21 11:20 [facility] (Rec: 07/22/21 12:11 [facility] [id number]) Current Condition History of Current Condition Onset Date slowly progressing since last course of PT in 2020 Current Complaints left hip pain decreased ROM and flare after certain activities alia ER History of Current Condition pt notes it has been a year since her last PT, she has been doing yoga and all her stretches, the left hip continues to be chronic and it continues to flare for no reason. She was diagnosed with bursitis and moderate arthritis, the pain seems to be primarily ITB both at the knee and at the hip attachments. She has burning pain at both of the ITB tendon attachments. Her left hip is her more dominant hip. She reports the pain comes on after specific activities and can range from 2-3/10 to 6/10 pain. She reports being limited with hip ER specifically. Treatment Goals Patient/Caregiver Goals Pt would like to gain as much ROM as she can and would like exercises and ideas for home that she can do to help her hip ROM and decrease her pain Prior Functional Status Baseline Function- ADL's Independent Baseline Function- Mobility Independent Current Functional Impairments (Reported) Functional Limitations- Mobility/Gait limited with hip mobility into hip ER, unable to sit crosslegged. Flare up after certain activities such as walking down hill and pain will rolling in bed to her back PT-OP-C Subjective Start: 07/22/21 09:32 Freq: Status: Active Protocol: Document 08/20/21 14:41 [facility] (Rec: 08/20/21 14:46 [facility] [id number]) OP-PT Subjective Patient Comments Patient Comments better today, yesterday was sore but today feeling better, icing, did a 1/2 hour yoga session and it focused on the hips PT-OP-F Manual Assessment Start: 07/22/21 09:32 Freq: Status: Active Protocol: Document 07/22/21 11:20 [facility] (Rec: 07/29/21 14:08 [facility] [id number]) Manual Assessments Soft Tissue Assessment Soft Tissue Mobility Assessment tightness of the ITB both distallty and proximally quad tightness left iliopsoas tightness left Joint Mobility Assessment Joint Mobility Assessment Decreased posterior and lateral glide of the left hip PT-OP-J Posture/Palpation/Skin Start: 07/22/21 09:32 Freq: Status: Active Protocol: Document 07/22/21 11:20 [facility] (Rec: 07/29/21 09:43 [facility] [id number]) Palpation Assessment Location left hip Palpation Location LEFT ITB both proximal and distal attachments Palpation Findings Soft Tissue Tightness,Muscle Guarding,Tenderness PT-OP-K Range of Motion Start: 07/22/21 09:32 Freq: Status: Active Protocol: Document 07/22/21 11:20 [facility] (Rec: 07/29/21 14:14 [facility] [id number]) Hip Goniometric Range of Motion Hip Left Hip ROM WFL No Testing Position Supine Flexion w/Knee Flexed 110 Straight Leg Raise 55 External Rotation 5 Hip ROM Limitations Hip ROM Limitations Soft Tissue Tightness Comments limited in hip ER and hip flexion and hip extension due to iliopsoas tightness, + aldo test on the left PT-OP-Q Treatments Start: 07/22/21 09:32 Freq: Status: Active Protocol: Document 08/20/21 18:50 [facility] (Rec: 08/20/21 18:54 [facility] [id number]) Manual Therapy Treatment Soft Tissue Mobilization ITB release Mobilization Type Myofascial Release Body Position Supine Comments ITB release, worked on distal ITB attachments iliopsoas release Body Location left iliopsoas Body Position supine and aldo test position quad MFR Mobilization Type Myofascial Release Intensity/Depth Superficial Body Position Hooklying Manual Techniques posterior capsule mobilization of the left hip Reps/Duration x 5 reps Comments grade III MWM lateral hip distraction with Comments MWM lateral hip distraction with hip IR/ER/Flexion pt shown self capsule mob in quadruped with rock backs PT-OP-R Modalities Start: 08/20/21 18:50 Freq: Status: Active Protocol: Document 08/20/21 18:50 [facility] (Rec: 08/20/21 18:54 [facility] [id number]) Ultrasound Therapy Treatment left ITB proximal Treatment Duration (minutes) 8 Patient Position Sidelying Applicator Size (cm2) 5 Frequency Setting (mHz) 1 Intensity Setting (w/cm2) 1.5 PT-OP-T Assessment and Plan Start: 07/22/21 09:32 Freq: Status: Active Protocol: Document 08/20/21 18:50 [facility] (Rec: 08/20/21 18:54 [facility] [id number]) Physical Therapy Assessment Assessment Summary Assessment pt was a little bruised today over the distal ITB from gusha so it was not used toda. She liked the US over the distal ITB prior to tissue work Physical Therapy Plan Frequency and Duration Frequency of Treatment 2x/Week Duration of Treatment 12 Plan of Care Start Date 07/22/21 Plan of Care End Date 10/14/21 Therapeutic Interventions Therapeutic Interventions Home Exercise Program,Joint Mobilizations,Manual Therapy, Patient/Caregiver Education, Sensory Integration,Soft Tissue Mobilization, Therapeutic Exercises Modalities Electric Stimulation Next Visit Focus/Plan Next Note Type Treatment Note Next Visit Plan Work on manual therapy techniques for hip mobility into hip flexion/ER. MFR techniques for the ITB, Review HEP
--- NOTE | 2021-08-25 16:45 | PT.OTN ---
Current Diagnoses Pain in left hip (08/25/21) Physical Therapy Treatment Note PT-OP-A Visit Information Start: 07/22/21 09:32 Freq: Status: Active Protocol: Document 08/25/21 14:30 [facility] (Rec: 08/25/21 16:45 [facility] [id number]) Out-Patient Physical Therapy Visit Information Visit Information Visit Type Treatment Note Visit Start Time 14:30 Visit Stop Time 15:15 Total Visit Minutes 45 Visit Number 6 PT-OP-B Current Condition Start: 07/22/21 09:32 Freq: Status: Active Protocol: Document 07/22/21 11:20 [facility] (Rec: 07/22/21 12:11 [facility] [id number]) Current Condition History of Current Condition Onset Date slowly progressing since last course of PT in 2020 Current Complaints left hip pain decreased ROM and flare after certain activities alia ER History of Current Condition pt notes it has been a year since her last PT, she has been doing yoga and all her stretches, the left hip continues to be chronic and it continues to flare for no reason. She was diagnosed with bursitis and moderate arthritis, the pain seems to be primarily ITB both at the knee and at the hip attachments. She has burning pain at both of the ITB tendon attachments. Her left hip is her more dominant hip. She reports the pain comes on after specific activities and can range from 2-3/10 to 6/10 pain. She reports being limited with hip ER specifically. Treatment Goals Patient/Caregiver Goals Pt would like to gain as much ROM as she can and would like exercises and ideas for home that she can do to help her hip ROM and decrease her pain Prior Functional Status Baseline Function- ADL's Independent Baseline Function- Mobility Independent Current Functional Impairments (Reported) Functional Limitations- Mobility/Gait limited with hip mobility into hip ER, unable to sit crosslegged. Flare up after certain activities such as walking down hill and pain will rolling in bed to her back PT-OP-C Subjective Start: 07/22/21 09:32 Freq: Status: Active Protocol: Document 08/25/21 14:33 [facility] (Rec: 08/25/21 15:18 [facility] [id number]) OP-PT Subjective Patient Comments Patient Comments pt notes she has been using the gusha on her distal ITB, the knee has been a little better then last few days, she has a appt for cortisone a week from today PT-OP-F Manual Assessment Start: 07/22/21 09:32 Freq: Status: Active Protocol: Document 07/22/21 11:20 [facility] (Rec: 07/29/21 14:08 [facility] [id number]) Manual Assessments Soft Tissue Assessment Soft Tissue Mobility Assessment tightness of the ITB both distallty and proximally quad tightness left iliopsoas tightness left Joint Mobility Assessment Joint Mobility Assessment Decreased posterior and lateral glide of the left hip PT-OP-J Posture/Palpation/Skin Start: 07/22/21 09:32 Freq: Status: Active Protocol: Document 07/22/21 11:20 [facility] (Rec: 07/29/21 09:43 [facility] [id number]) Palpation Assessment Location left hip Palpation Location LEFT ITB both proximal and distal attachments Palpation Findings Soft Tissue Tightness,Muscle Guarding,Tenderness PT-OP-K Range of Motion Start: 07/22/21 09:32 Freq: Status: Active Protocol: Document 07/22/21 11:20 [facility] (Rec: 07/29/21 14:14 [facility] [id number]) Hip Goniometric Range of Motion Hip Left Hip ROM WFL No Testing Position Supine Flexion w/Knee Flexed 110 Straight Leg Raise 55 External Rotation 5 Hip ROM Limitations Hip ROM Limitations Soft Tissue Tightness Comments limited in hip ER and hip flexion and hip extension due to iliopsoas tightness, + aldo test on the left PT-OP-Q Treatments Start: 07/22/21 09:32 Freq: Status: Active Protocol: Document 08/25/21 14:30 [facility] (Rec: 08/25/21 16:45 [facility] [id number]) Manual Therapy Treatment Soft Tissue Mobilization ITB release Mobilization Type Myofascial Release Body Position Supine Comments ITB release, worked on distal and proximal ITB attachments with gusha iliopsoas release Body Location left iliopsoas Body Position supine and aldo test position quad MFR Mobilization Type Myofascial Release Intensity/Depth Superficial Body Position Hooklying Manual Techniques MWM lateral hip distraction with Comments MWM lateral hip distraction with hip IR/ER/Flexion pt shown self capsule mob in quadruped with rock backs PT-OP-R Modalities Start: 08/20/21 18:50 Freq: Status: Active Protocol: Document 08/25/21 14:30 [facility] (Rec: 08/25/21 16:45 [facility] [id number]) Ultrasound Therapy Treatment left ITB proximal Treatment Duration (minutes) 8 Patient Position Sidelying Applicator Size (cm2) 5 Frequency Setting (mHz) 1 Intensity Setting (w/cm2) 1.5 PT-OP-T Assessment and Plan Start: 07/22/21 09:32 Freq: Status: Active Protocol: Document 08/25/21 14:30 [facility] (Rec: 08/25/21 16:45 [facility] [id number]) Physical Therapy Assessment Assessment Summary Assessment Maura tolerated US and instrumented assist MFR over the proximal ITB insertion today. She is planning on getting a cortisone injection which I feel may really be beneficial for her Physical Therapy Plan Frequency and Duration Frequency of Treatment 2x/Week Duration of Treatment 12 Plan of Care Start Date 07/22/21 Plan of Care End Date 10/14/21 Therapeutic Interventions Therapeutic Interventions Home Exercise Program,Joint Mobilizations,Manual Therapy, Patient/Caregiver Education, Sensory Integration,Soft Tissue Mobilization, Therapeutic Exercises Modalities Electric Stimulation Next Visit Focus/Plan Next Note Type Treatment Note Next Visit Plan Work on manual therapy techniques for hip mobility into hip flexion/ER. MFR techniques for the ITB, Review HEP
--- NOTE | 2021-10-29 17:46 | PT.OTN ---
Current Diagnoses Pain in left hip (10/29/21) Physical Therapy Treatment Note PT-OP-A Visit Information Start: 07/22/21 09:32 Freq: Status: Active Protocol: Document 10/29/21 09:50 [facility] (Rec: 10/29/21 10:34 [facility] [id number]) Out-Patient Physical Therapy Visit Information Visit Information Visit Type Treatment Note Visit Start Time 09:45 Visit Stop Time 10:30 Total Visit Minutes 45 Visit Number 7 PT-OP-B Current Condition Start: 07/22/21 09:32 Freq: Status: Active Protocol: Document 07/22/21 11:20 [facility] (Rec: 07/22/21 12:11 [facility] [id number]) Current Condition History of Current Condition Onset Date slowly progressing since last course of PT in 2020 Current Complaints left hip pain decreased ROM and flare after certain activities alia ER History of Current Condition pt notes it has been a year since her last PT, she has been doing yoga and all her stretches, the left hip continues to be chronic and it continues to flare for no reason. She was diagnosed with bursitis and moderate arthritis, the pain seems to be primarily ITB both at the knee and at the hip attachments. She has burning pain at both of the ITB tendon attachments. Her left hip is her more dominant hip. She reports the pain comes on after specific activities and can range from 2-3/10 to 6/10 pain. She reports being limited with hip ER specifically. Treatment Goals Patient/Caregiver Goals Pt would like to gain as much ROM as she can and would like exercises and ideas for home that she can do to help her hip ROM and decrease her pain Prior Functional Status Baseline Function- ADL's Independent Baseline Function- Mobility Independent Current Functional Impairments (Reported) Functional Limitations- Mobility/Gait limited with hip mobility into hip ER, unable to sit crosslegged. Flare up after certain activities such as walking down hill and pain will rolling in bed to her back PT-OP-C Subjective Start: 07/22/21 09:32 Freq: Status: Active Protocol: Document 10/29/21 09:50 [facility] (Rec: 10/29/21 10:34 [facility] [id number]) OP-PT Subjective Patient Comments Patient Comments pt has been boating the last month, the band with rock backs really helps open her hip, the gusha also helps to relieve tension at the knee. Stepping onto the docks that were uneven and floatie surface was hard on her hip. HEr knee is working more that her hip. She tried the cortisone in her hip and she didn't feel like it really did to help it. PT-OP-F Manual Assessment Start: 07/22/21 09:32 Freq: Status: Active Protocol: Document 07/22/21 11:20 [facility] (Rec: 07/29/21 14:08 [facility] [id number]) Manual Assessments Soft Tissue Assessment Soft Tissue Mobility Assessment tightness of the ITB both distallty and proximally quad tightness left iliopsoas tightness left Joint Mobility Assessment Joint Mobility Assessment Decreased posterior and lateral glide of the left hip PT-OP-J Posture/Palpation/Skin Start: 07/22/21 09:32 Freq: Status: Active Protocol: Document 07/22/21 11:20 [facility] (Rec: 07/29/21 09:43 [facility] [id number]) Palpation Assessment Location left hip Palpation Location LEFT ITB both proximal and distal attachments Palpation Findings Soft Tissue Tightness,Muscle Guarding,Tenderness PT-OP-K Range of Motion Start: 07/22/21 09:32 Freq: Status: Active Protocol: Document 07/22/21 11:20 [facility] (Rec: 07/29/21 14:14 [facility] [id number]) Hip Goniometric Range of Motion Hip Left Hip ROM WFL No Testing Position Supine Flexion w/Knee Flexed 110 Straight Leg Raise 55 External Rotation 5 Hip ROM Limitations Hip ROM Limitations Soft Tissue Tightness Comments limited in hip ER and hip flexion and hip extension due to iliopsoas tightness, + aldo test on the left PT-OP-Q Treatments Start: 07/22/21 09:32 Freq: Status: Active Protocol: Document 10/29/21 09:50 [facility] (Rec: 10/29/21 14:57 [facility] [id number]) Manual Therapy Treatment Soft Tissue Mobilization ITB release Mobilization Type Myofascial Release Body Position Supine Comments ITB release, worked on distal ITB attachments with gusha quad MFR Mobilization Type Myofascial Release Intensity/Depth Superficial Body Position Sidelying PT-OP-R Modalities Start: 08/20/21 18:50 Freq: Status: Active Protocol: Document 10/29/21 09:50 [facility] (Rec: 10/29/21 14:57 [facility] [id number]) Ultrasound Therapy Treatment left distal ITB attachment Treatment Duration (minutes) 8 Patient Position Sidelying Applicator Size (cm2) 5 Frequency Setting (mHz) 1 Duty Cycle 1.5 PT-OP-T Assessment and Plan Start: 07/22/21 09:32 Freq: Status: Active Protocol: Document 10/29/21 09:50 [facility] (Rec: 10/29/21 14:57 [facility] [id number]) Physical Therapy Assessment Goals 4 Impairment Myofascial tightness of the ITB Sisal Picker Goal (LTG) With manual therapy techniques we are able to improve the fascial mobility of the ITB helping to decrease compression of the bursa and the fibula head at the knee pt still c/o tightness at the knee LTG Duration 12 weeks 3 Impairment Pain with walking down a incline or stairs Short Term Goal (STG) Maura is educated on self hip capsule stretches to help with improved hip flexion and ER GOAL MET STG Duration 4 weeks Sisal Picker Goal (LTG) Maura notes a overall reduction of pain with stairs and walking down hill Good progress LTG Duration 12 weeks 2 Impairment hip pain ranging from 2-6/10 depending on activity as well as distal ITB pain at the knee Sisal Picker Goal (LTG) Maura reports overall reduction in her pain symptoms lowering her pain to 1-3/10 Excellent progress LTG Duration 12 weeks 1 Impairment Decreased hip ROM most significantly into flexion and ER, pt is unable to sit cross legged. Long-Term Goal (LTG) Maura notes more comfort with sitting cross legged and shows improvements with her hip ROM into ER and flexion Assessment Summary Assessment Maura returns to PT after not being seen since August as she has been boating. Maura notes most of her pain now is in the distal ITB at the attachments to her knee. She seemed to respond favorably to the cortisone injection at her hip. She is still experiencing hip discomfort but it is more intermittent now. Focus today was over the distal ITB. Maura would benefit from continued PT Physical Therapy Plan Frequency and Duration Frequency of Treatment 2x/Week Duration of Treatment 12 Plan of Care Start Date 10/29/21 Plan of Care End Date 01/28/22 Therapeutic Interventions Therapeutic Interventions Home Exercise Program,Joint Mobilizations,Manual Therapy, Patient/Caregiver Education, Sensory Integration,Soft Tissue Mobilization, Therapeutic Exercises Modalities Electric Stimulation Next Visit Focus/Plan Next Note Type Treatment Note Next Visit Plan Work on manual therapy techniques for hip mobility into hip flexion/ER. MFR techniques for the ITB, Review HEP
--- NOTE | 2021-10-29 17:46 | PT.OPPOC ---
Physical, Occupational & Speech Therapy At [facility] Current Diagnoses Pain in left hip (10/29/21) Visit Care Team Role Provider Type Syed Perez MD Family Provider Physician Primary Care Provider Specialty: Internal Medicine Address: [address] [place] [address], [address], [address] Email: [email or web address] Jose Luis Esquivel MD Attending Provider Physician Referring Provider Specialty: Orthopedics Orthopedic Surgery Physical Medicine and Re[facility] Address: [address] [place] [address], [id number] Email: [email or web address] Plan Of Care PT-OP-T Assessment and Plan Start: 07/22/21 09:32 Freq: Status: Active Protocol: Document 10/29/21 09:50 [facility] (Rec: 10/29/21 14:57 [facility] [id number]) Physical Therapy Assessment Goals 4 Impairment Myofascial tightness of the ITB Manager Banking Goal (LTG) With manual therapy techniques we are able to improve the fascial mobility of the ITB helping to decrease compression of the bursa and the fibula head at the knee pt still c/o tightness at the knee LTG Duration 12 weeks 3 Impairment Pain with walking down a incline or stairs Short Term Goal (STG) Maura is educated on self hip capsule stretches to help with improved hip flexion and ER GOAL MET STG Duration 4 weeks Senior Care Goal (LTG) Maura notes a overall reduction of pain with stairs and walking down hill Good progress LTG Duration 12 weeks 2 Impairment hip pain ranging from 2-6/10 depending on activity as well as distal ITB pain at the knee Manager Banking Goal (LTG) Maura reports overall reduction in her pain symptoms lowering her pain to 1-3/10 Excellent progress LTG Duration 12 weeks 1 Impairment Decreased hip ROM most significantly into flexion and ER, pt is unable to sit cross legged. Manager Banking Goal (LTG) Maura notes more comfort with sitting cross legged and shows improvements with her hip ROM into ER and flexion Assessment Summary Assessment Maura returns to PT after not being seen since August as she has been boating. Maura notes most of her pain now is in the distal ITB at the attachments to her knee. She seemed to respond favorably to the cortisone injection at her hip. She is still experiencing hip discomfort but it is more intermittent now. Focus today was over the distal ITB. Maura would benefit from continued PT Physical Therapy Plan Frequency and Duration Frequency of Treatment 2x/Week Duration of Treatment 12 Plan of Care Start Date 10/29/21 Plan of Care End Date 01/28/22 Therapeutic Interventions Therapeutic Interventions Home Exercise Program,Joint Mobilizations,Manual Therapy, Patient/Caregiver Education, Sensory Integration,Soft Tissue Mobilization, Therapeutic Exercises Modalities Electric Stimulation Next Visit Focus/Plan Next Note Type Treatment Note Next Visit Plan Work on manual therapy techniques for hip mobility into hip flexion/ER. MFR techniques for the ITB, Review HEP Plan of Care Dates Plan of Care Start Date 10/29/21 Plan of Care End Date 01/28/22 Electronically Signed by: Norah Yu, PT 10/29/21 9449 If you are in agreement with this Plan of Care, please return a signed and dated copy. I have reviewed this Plan of Care and certify that the skilled therapy services above are required to meet the patient?s needs. Physician Signature Date Printed Name and Credentials Clinical Instructor Signature Printed Name and Credentials
--- NOTE | 2021-11-03 17:25 | PT.OTN ---
Current Diagnoses Pain in left hip (11/03/21) Physical Therapy Treatment Note PT-OP-A Visit Information Start: 07/22/21 09:32 Freq: Status: Active Protocol: Document 11/03/21 17:19 [facility] (Rec: 11/03/21 17:25 [facility] [id number]) Out-Patient Physical Therapy Visit Information Visit Information Visit Type Treatment Note Visit Start Time 14:35 Visit Stop Time 15:15 Total Visit Minutes 40 Visit Number 8 PT-OP-B Current Condition Start: 07/22/21 09:32 Freq: Status: Active Protocol: Document 07/22/21 11:20 [facility] (Rec: 07/22/21 12:11 [facility] [id number]) Current Condition History of Current Condition Onset Date slowly progressing since last course of PT in 2020 Current Complaints left hip pain decreased ROM and flare after certain activities alia ER History of Current Condition pt notes it has been a year since her last PT, she has been doing yoga and all her stretches, the left hip continues to be chronic and it continues to flare for no reason. She was diagnosed with bursitis and moderate arthritis, the pain seems to be primarily ITB both at the knee and at the hip attachments. She has burning pain at both of the ITB tendon attachments. Her left hip is her more dominant hip. She reports the pain comes on after specific activities and can range from 2-3/10 to 6/10 pain. She reports being limited with hip ER specifically. Treatment Goals Patient/Caregiver Goals Pt would like to gain as much ROM as she can and would like exercises and ideas for home that she can do to help her hip ROM and decrease her pain Prior Functional Status Baseline Function- ADL's Independent Baseline Function- Mobility Independent Current Functional Impairments (Reported) Functional Limitations- Mobility/Gait limited with hip mobility into hip ER, unable to sit crosslegged. Flare up after certain activities such as walking down hill and pain will rolling in bed to her back PT-OP-C Subjective Start: 07/22/21 09:32 Freq: Status: Active Protocol: Document 11/03/21 17:19 [facility] (Rec: 11/03/21 17:25 [facility] [id number]) OP-PT Subjective Patient Comments Patient Comments pt reports she is hurting more today and into her hip as well. Alta would like to work on hip opening today in treatment PT-OP-F Manual Assessment Start: 07/22/21 09:32 Freq: Status: Active Protocol: Document 07/22/21 11:20 [facility] (Rec: 07/29/21 14:08 [facility] [id number]) Manual Assessments Soft Tissue Assessment Soft Tissue Mobility Assessment tightness of the ITB both distallty and proximally quad tightness left iliopsoas tightness left Joint Mobility Assessment Joint Mobility Assessment Decreased posterior and lateral glide of the left hip PT-OP-J Posture/Palpation/Skin Start: 07/22/21 09:32 Freq: Status: Active Protocol: Document 07/22/21 11:20 [facility] (Rec: 07/29/21 09:43 [facility] [id number]) Palpation Assessment Location left hip Palpation Location LEFT ITB both proximal and distal attachments Palpation Findings Soft Tissue Tightness,Muscle Guarding,Tenderness PT-OP-K Range of Motion Start: 07/22/21 09:32 Freq: Status: Active Protocol: Document 07/22/21 11:20 [facility] (Rec: 07/29/21 14:14 [facility] [id number]) Hip Goniometric Range of Motion Hip Left Hip ROM WFL No Testing Position Supine Flexion w/Knee Flexed 110 Straight Leg Raise 55 External Rotation 5 Hip ROM Limitations Hip ROM Limitations Soft Tissue Tightness Comments limited in hip ER and hip flexion and hip extension due to iliopsoas tightness, + aldo test on the left PT-OP-Q Treatments Start: 07/22/21 09:32 Freq: Status: Active Protocol: Document 11/03/21 17:19 [facility] (Rec: 11/03/21 17:25 [facility] [id number]) Manual Therapy Treatment Soft Tissue Mobilization ITB release Mobilization Type Myofascial Release Body Position Supine Comments ITB release, worked on distal ITB attachments with gusha iliopsoas release Body Location left iliopsoas Body Position supine and aldo test position quad MFR Mobilization Type Myofascial Release Intensity/Depth Superficial Body Position Sidelying Manual Techniques posterior capsule mobilization of the left hip Reps/Duration x 5 reps Comments grade III MWM lateral hip distraction with Comments MWM lateral hip distraction with hip IR/ER/Flexion pt shown self capsule mob in quadruped with rock backs PT-OP-R Modalities Start: 08/20/21 18:50 Freq: Status: Active Protocol: Document 11/03/21 17:19 [facility] (Rec: 11/03/21 17:25 [facility] [id number]) Ultrasound Therapy Treatment left ITB proximal Treatment Duration (minutes) 8 Patient Position Sidelying Applicator Size (cm2) 5 Frequency Setting (mHz) 1 Intensity Setting (w/cm2) 1.5 PT-OP-T Assessment and Plan Start: 07/22/21 09:32 Freq: Status: Active Protocol: Document 11/03/21 17:19 [facility] (Rec: 11/03/21 17:25 [facility] [id number]) Physical Therapy Assessment Assessment Summary Assessment pts hip was more restricted today, she felt good with hip distraction and hip capsule mobilizations. She still had pain with standing marching type activity following treatment Physical Therapy Plan Frequency and Duration Frequency of Treatment 2x/Week Duration of treatment (weeks) 12 Plan of Care Start Date 10/29/21 Plan of Care End Date 01/31/22 Therapeutic Interventions Therapeutic Interventions Home Exercise Program,Joint Mobilizations,Manual Therapy, Patient/Caregiver Education, Sensory Integration,Soft Tissue Mobilization, Therapeutic Exercises Modalities Electric Stimulation Next Visit Focus/Plan Next Note Type Treatment Note Next Visit Plan Work on manual therapy techniques for hip mobility into hip flexion/ER. MFR techniques for the ITB, Review HEP
--- NOTE | 2021-11-05 17:35 | PT.OTN ---
Current Diagnoses Pain in left hip (11/05/21) Physical Therapy Treatment Note PT-OP-A Visit Information Start: 07/22/21 09:32 Freq: Status: Active Protocol: Document 11/05/21 14:34 [facility] (Rec: 11/05/21 15:18 [facility] [id number]) Out-Patient Physical Therapy Visit Information Visit Information Visit Type Treatment Note Visit Start Time 14:35 Visit Stop Time 15:15 Total Visit Minutes 40 Visit Number 9 PT-OP-B Current Condition Start: 07/22/21 09:32 Freq: Status: Active Protocol: Document 07/22/21 11:20 [facility] (Rec: 07/22/21 12:11 [facility] [id number]) Current Condition History of Current Condition Onset Date slowly progressing since last course of PT in 2020 Current Complaints left hip pain decreased ROM and flare after certain activities alia ER History of Current Condition pt notes it has been a year since her last PT, she has been doing yoga and all her stretches, the left hip continues to be chronic and it continues to flare for no reason. She was diagnosed with bursitis and moderate arthritis, the pain seems to be primarily ITB both at the knee and at the hip attachments. She has burning pain at both of the ITB tendon attachments. Her left hip is her more dominant hip. She reports the pain comes on after specific activities and can range from 2-3/10 to 6/10 pain. She reports being limited with hip ER specifically. Treatment Goals Patient/Caregiver Goals Pt would like to gain as much ROM as she can and would like exercises and ideas for home that she can do to help her hip ROM and decrease her pain Prior Functional Status Baseline Function- ADL's Independent Baseline Function- Mobility Independent Current Functional Impairments (Reported) Functional Limitations- Mobility/Gait limited with hip mobility into hip ER, unable to sit crosslegged. Flare up after certain activities such as walking down hill and pain will rolling in bed to her back PT-OP-C Subjective Start: 07/22/21 09:32 Freq: Status: Active Protocol: Document 11/05/21 14:34 [facility] (Rec: 11/05/21 15:18 [facility] [id number]) OP-PT Subjective Patient Comments Patient Comments pt got a stressless chair, she did try the clam shell and windshield wiper but these felt difficult PT-OP-F Manual Assessment Start: 07/22/21 09:32 Freq: Status: Active Protocol: Document 07/22/21 11:20 [facility] (Rec: 07/29/21 14:08 [facility] [id number]) Manual Assessments Soft Tissue Assessment Soft Tissue Mobility Assessment tightness of the ITB both distallty and proximally quad tightness left iliopsoas tightness left Joint Mobility Assessment Joint Mobility Assessment Decreased posterior and lateral glide of the left hip PT-OP-J Posture/Palpation/Skin Start: 07/22/21 09:32 Freq: Status: Active Protocol: Document 07/22/21 11:20 [facility] (Rec: 07/29/21 09:43 [facility] [id number]) Palpation Assessment Location left hip Palpation Location LEFT ITB both proximal and distal attachments Palpation Findings Soft Tissue Tightness,Muscle Guarding,Tenderness PT-OP-K Range of Motion Start: 07/22/21 09:32 Freq: Status: Active Protocol: Document 07/22/21 11:20 [facility] (Rec: 07/29/21 14:14 [facility] [id number]) Hip Goniometric Range of Motion Hip Left Hip ROM WFL No Testing Position Supine Flexion w/Knee Flexed 110 Straight Leg Raise 55 External Rotation 5 Hip ROM Limitations Hip ROM Limitations Soft Tissue Tightness Comments limited in hip ER and hip flexion and hip extension due to iliopsoas tightness, + aldo test on the left PT-OP-Q Treatments Start: 07/22/21 09:32 Freq: Status: Active Protocol: Document 11/05/21 14:30 [facility] (Rec: 11/05/21 17:35 [facility] [id number]) Therapeutic Exercises Supine Exercises Bent knee fall outs B Reps/Minutes x 20 windshield wipers Reps/Minutes x 10 PT-OP-R Modalities Start: 08/20/21 18:50 Freq: Status: Active Protocol: Document 11/05/21 14:30 [facility] (Rec: 11/05/21 17:35 [facility] [id number]) Ultrasound Therapy Treatment left ITB proximal Treatment Duration (minutes) 8 Patient Position Sidelying Applicator Size (cm2) 5 Frequency Setting (mHz) 1 Intensity Setting (w/cm2) 1.5 PT-OP-T Assessment and Plan Start: 07/22/21 09:32 Freq: Status: Active Protocol: Document 11/05/21 14:30 [facility] (Rec: 11/05/21 17:35 [facility] [id number]) Physical Therapy Assessment Assessment Summary Assessment pts hip was more restricted today, she felt good with hip distraction and hip capsule mobilizations. Windshiled wipers are doable as well as bent knee fall outs without band. I also advised side steps to help faciliate the gluteus medius Physical Therapy Plan Frequency and Duration Frequency of Treatment 2x/Week Duration of treatment (weeks) 12 Plan of Care Start Date 10/29/21 Plan of Care End Date 01/31/22 Therapeutic Interventions Therapeutic Interventions Home Exercise Program,Joint Mobilizations,Manual Therapy, Patient/Caregiver Education, Sensory Integration,Soft Tissue Mobilization, Therapeutic Exercises Modalities Electric Stimulation Next Visit Focus/Plan Next Note Type Treatment Note Next Visit Plan Work on manual therapy techniques for hip mobility into hip flexion/ER. MFR techniques for the ITB, Review HEP
--- NOTE | 2021-11-10 14:11 | PT.OTN ---
Current Diagnoses Pain in left hip (11/10/21) Physical Therapy Treatment Note PT-OP-A Visit Information Start: 07/22/21 09:32 Freq: Status: Active Protocol: Document 11/10/21 10:35 [facility] (Rec: 11/10/21 11:18 [facility] [id number]) Out-Patient Physical Therapy Visit Information Visit Information Visit Type Treatment Note Visit Start Time 10:35 Visit Stop Time 11:15 Total Visit Minutes 40 Visit Number 10 PT-OP-B Current Condition Start: 07/22/21 09:32 Freq: Status: Active Protocol: Document 07/22/21 11:20 [facility] (Rec: 07/22/21 12:11 [facility] [id number]) Current Condition History of Current Condition Onset Date slowly progressing since last course of PT in 2020 Current Complaints left hip pain decreased ROM and flare after certain activities alia ER History of Current Condition pt notes it has been a year since her last PT, she has been doing yoga and all her stretches, the left hip continues to be chronic and it continues to flare for no reason. She was diagnosed with bursitis and moderate arthritis, the pain seems to be primarily ITB both at the knee and at the hip attachments. She has burning pain at both of the ITB tendon attachments. Her left hip is her more dominant hip. She reports the pain comes on after specific activities and can range from 2-3/10 to 6/10 pain. She reports being limited with hip ER specifically. Treatment Goals Patient/Caregiver Goals Pt would like to gain as much ROM as she can and would like exercises and ideas for home that she can do to help her hip ROM and decrease her pain Prior Functional Status Baseline Function- ADL's Independent Baseline Function- Mobility Independent Current Functional Impairments (Reported) Functional Limitations- Mobility/Gait limited with hip mobility into hip ER, unable to sit crosslegged. 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 and will chat with him about the motrin, she will try the voltarian 2 xms a day PT-OP-F Manual Assessment Start: 07/22/21 09:32 Freq: Status: Active Protocol: Document 07/22/21 11:20 [facility] (Rec: 07/29/21 14:08 [facility] [id number]) Manual Assessments Soft Tissue Assessment Soft Tissue Mobility Assessment tightness of the ITB both distallty and proximally quad tightness left iliopsoas tightness left Joint Mobility Assessment Joint Mobility Assessment Decreased posterior and lateral glide of the left hip PT-OP-J Posture/Palpation/Skin Start: 07/22/21 09:32 Freq: Status: Active Protocol: Document 07/22/21 11:20 [facility] (Rec: 07/29/21 09:43 [facility] [id number]) Palpation Assessment Location left hip Palpation Location LEFT ITB both proximal and distal attachments Palpation Findings Soft Tissue Tightness,Muscle Guarding,Tenderness PT-OP-K Range of Motion Start: 07/22/21 09:32 Freq: Status: Active Protocol: Document 07/22/21 11:20 [facility] (Rec: 07/29/21 14:14 [facility] [id number]) Hip Goniometric Range of Motion Hip Left Hip ROM WFL No Testing Position Supine Flexion w/Knee Flexed 110 Straight Leg Raise 55 External Rotation 5 Hip ROM Limitations Hip ROM Limitations Soft Tissue Tightness Comments limited in hip ER and hip flexion and hip extension due to iliopsoas tightness, + aldo test on the left PT-OP-Q Treatments Start: 07/22/21 09:32 Freq: Status: Active Protocol: Document 11/10/21 10:35 [facility] (Rec: 11/10/21 14:10 [facility] [id number]) Therapeutic Exercises Supine Exercises iliopsoas stretch Side bilateral Reps/Minutes 1-2 min hold Comments aldo test position hamstring and ITB stretch Reps/Minutes 1-2 min single knee to chest Reps/Minutes hold 1-2 min Bent knee fall outs B Reps/Minutes x 20 windshield wipers Reps/Minutes x 10 Sidelying Exercises sidelying quad stretch Reps/Minutes hold 1-2 minutes Manual Therapy Treatment Soft Tissue Mobilization quad MFR Mobilization Type Myofascial Release Intensity/Depth Superficial Body Position Sidelying Manual Techniques long axis leg distraction Reps/Duration 1-2 min hold posterior capsule mobilization of the left hip Reps/Duration x 5 reps Comments grade III MWM lateral hip distraction with Comments MWM lateral hip distraction with hip IR/ER/Flexion pt shown self capsule mob in quadruped with rock backs PT-OP-R Modalities Start: 08/20/21 18:50 Freq: Status: Active Protocol: Document 11/05/21 14:30 [facility] (Rec: 11/05/21 17:35 [facility] [id number]) Ultrasound Therapy Treatment left ITB proximal Treatment Duration (minutes) 8 Patient Position Sidelying Applicator Size (cm2) 5 Frequency Setting (mHz) 1 Intensity Setting (w/cm2) 1.5 PT-OP-T Assessment and Plan Start: 07/22/21 09:32 Freq: Status: Active Protocol: Document 11/10/21 10:35 [facility] (Rec: 11/10/21 14:10 [facility] [id number]) Physical Therapy Assessment Assessment Summary Assessment Maura still noting inflammation but motrin helps, she is not supposed to take that due to kidney damage. She is doing ice and tumeric but it doesn't help as much. Stretches were reviewed today Physical Therapy Plan Frequency and Duration Frequency of Treatment 2x/Week Duration of treatment (weeks) 12 Plan of Care Start Date 10/29/21 Plan of Care End Date 01/31/22 Therapeutic Interventions Therapeutic Interventions Home Exercise Program,Joint Mobilizations,Manual Therapy, Patient/Caregiver Education, Sensory Integration,Soft Tissue Mobilization, Therapeutic Exercises Modalities Electric Stimulation Next Visit Focus/Plan Next Note Type Treatment Note Next Visit Plan Work on manual therapy techniques for hip mobility into hip flexion/ER. MFR techniques for the ITB, Review HEP
--- NOTE | 2021-11-17 14:14 | PT.OTN ---
Current Diagnoses Pain in left hip (11/17/21) Physical Therapy Treatment Note PT-OP-A Visit Information Start: 07/22/21 09:32 Freq: Status: Active Protocol: Document 11/17/21 10:29 [facility] (Rec: 11/17/21 11:21 [facility] [id number]) Out-Patient Physical Therapy Visit Information Visit Information Visit Type Treatment Note Visit Start Time 10:30 Visit Stop Time 11:15 Total Visit Minutes 45 Visit Number 11 Evaluation Information Evaluation Date 07/22/21 PT-OP-B Current Condition Start: 07/22/21 09:32 Freq: Status: Active Protocol: Document 07/22/21 11:20 [facility] (Rec: 07/22/21 12:11 [facility] [id number]) Current Condition History of Current Condition Onset Date slowly progressing since last course of PT in 2020 Current Complaints left hip pain decreased ROM and flare after certain activities alia ER History of Current Condition pt notes it has been a year since her last PT, she has been doing yoga and all her stretches, the left hip continues to be chronic and it continues to flare for no reason. She was diagnosed with bursitis and moderate arthritis, the pain seems to be primarily ITB both at the knee and at the hip attachments. She has burning pain at both of the ITB tendon attachments. Her left hip is her more dominant hip. She reports the pain comes on after specific activities and can range from 2-3/10 to 6/10 pain. She reports being limited with hip ER specifically. Treatment Goals Patient/Caregiver Goals Pt would like to gain as much ROM as she can and would like exercises and ideas for home that she can do to help her hip ROM and decrease her pain Prior Functional Status Baseline Function- ADL's Independent Baseline Function- Mobility Independent Current Functional Impairments (Reported) Functional Limitations- Mobility/Gait limited with hip mobility into hip ER, unable to sit crosslegged. Flare up after certain activities such as walking down hill and pain will rolling in bed to her back PT-OP-C Subjective Start: 07/22/21 09:32 Freq: Status: Active Protocol: Document 11/17/21 10:29 [facility] (Rec: 11/17/21 11:21 [facility] [id number]) OP-PT Subjective Patient Comments Patient Comments pt had her flu and booster shot last tuesday and by tuesday she was flared up and painful. She has taken motrin a few time along with volteran 2 times per day and this is really helping. PT will be back in her camper soon and stairs seem to trigger it. PT-OP-F Manual Assessment Start: 07/22/21 09:32 Freq: Status: Active Protocol: Document 07/22/21 11:20 [facility] (Rec: 07/29/21 14:08 [facility] [id number]) Manual Assessments Soft Tissue Assessment Soft Tissue Mobility Assessment tightness of the ITB both distallty and proximally quad tightness left iliopsoas tightness left Joint Mobility Assessment Joint Mobility Assessment Decreased posterior and lateral glide of the left hip PT-OP-J Posture/Palpation/Skin Start: 07/22/21 09:32 Freq: Status: Active Protocol: Document 07/22/21 11:20 [facility] (Rec: 07/29/21 09:43 [facility] [id number]) Palpation Assessment Location left hip Palpation Location LEFT ITB both proximal and distal attachments Palpation Findings Soft Tissue Tightness,Muscle Guarding,Tenderness PT-OP-K Range of Motion Start: 07/22/21 09:32 Freq: Status: Active Protocol: Document 07/22/21 11:20 [facility] (Rec: 07/29/21 14:14 [facility] [id number]) Hip Goniometric Range of Motion Hip Left Hip ROM WFL No Testing Position Supine Flexion w/Knee Flexed 110 Straight Leg Raise 55 External Rotation 5 Hip ROM Limitations Hip ROM Limitations Soft Tissue Tightness Comments limited in hip ER and hip flexion and hip extension due to iliopsoas tightness, + aldo test on the left PT-OP-Q Treatments Start: 07/22/21 09:32 Freq: Status: Active Protocol: Document 11/17/21 10:30 [facility] (Rec: 11/17/21 14:13 [facility] [id number]) Manual Therapy Treatment Soft Tissue Mobilization iliopsoas release Body Location left iliopsoas Body Position supine and aldo test position Manual Techniques long axis leg distraction Reps/Duration 1-2 min hold posterior capsule mobilization of the left hip Reps/Duration x 5 reps Comments grade III MWM lateral hip distraction with Comments MWM lateral hip distraction with hip IR/ER/Flexion PT-OP-R Modalities Start: 08/20/21 18:50 Freq: Status: Active Protocol: Document 11/05/21 14:30 [facility] (Rec: 11/05/21 17:35 [facility] [id number]) Ultrasound Therapy Treatment left ITB proximal Treatment Duration (minutes) 8 Patient Position Sidelying Applicator Size (cm2) 5 Frequency Setting (mHz) 1 Intensity Setting (w/cm2) 1.5 PT-OP-T Assessment and Plan Start: 07/22/21 09:32 Freq: Status: Active Protocol: Document 11/17/21 10:30 [facility] (Rec: 11/17/21 14:13 [facility] [id number]) Physical Therapy Assessment Assessment Summary Assessment with manual release of the hip today Maura's quads and hip flexors seemed to loosen really well following mobilization Physical Therapy Plan Frequency and Duration Frequency of Treatment 2x/Week Duration of treatment (weeks) 12 Plan of Care Start Date 10/29/21 Plan of Care End Date 01/31/22 Therapeutic Interventions Therapeutic Interventions Home Exercise Program,Joint Mobilizations,Manual Therapy, Patient/Caregiver Education, Sensory Integration,Soft Tissue Mobilization, Therapeutic Exercises Modalities Electric Stimulation Next Visit Focus/Plan Next Note Type Treatment Note Next Visit Plan Work on manual therapy techniques for hip mobility into hip flexion/ER. MFR techniques for the ITB, Review HEP
--- NOTE | 2021-12-01 17:33 | PT.OTN ---
Current Diagnoses Pain in left hip (12/01/21) Physical Therapy Treatment Note PT-OP-A Visit Information Start: 07/22/21 09:32 Freq: Status: Active Protocol: Document 12/01/21 15:16 [facility] (Rec: 12/01/21 16:01 [facility] [id number]) Out-Patient Physical Therapy Visit Information Visit Information Visit Type Treatment Note Visit Start Time 15:20 Visit Stop Time 16:00 Total Visit Minutes 40 Visit Number 12 PT-OP-B Current Condition Start: 07/22/21 09:32 Freq: Status: Active Protocol: Document 07/22/21 11:20 [facility] (Rec: 07/22/21 12:11 [facility] [id number]) Current Condition History of Current Condition Onset Date slowly progressing since last course of PT in 2020 Current Complaints left hip pain decreased ROM and flare after certain activities alia ER History of Current Condition pt notes it has been a year since her last PT, she has been doing yoga and all her stretches, the left hip continues to be chronic and it continues to flare for no reason. She was diagnosed with bursitis and moderate arthritis, the pain seems to be primarily ITB both at the knee and at the hip attachments. She has burning pain at both of the ITB tendon attachments. Her left hip is her more dominant hip. She reports the pain comes on after specific activities and can range from 2-3/10 to 6/10 pain. She reports being limited with hip ER specifically. Treatment Goals Patient/Caregiver Goals Pt would like to gain as much ROM as she can and would like exercises and ideas for home that she can do to help her hip ROM and decrease her pain Prior Functional Status Baseline Function- ADL's Independent Baseline Function- Mobility Independent Current Functional Impairments (Reported) Functional Limitations- Mobility/Gait limited with hip mobility into hip ER, unable to sit crosslegged. Flare up after certain activities such as walking down hill and pain will rolling in bed to her back PT-OP-C Subjective Start: 07/22/21 09:32 Freq: Status: Active Protocol: Document 12/01/21 15:16 [facility] (Rec: 12/01/21 16:01 [facility] [id number]) OP-PT Subjective Patient Comments Patient Comments Maura reports her hip likes the camper because it helps to stretch her hip getting in and out of the truck. She has had some ITB and quad tightness but the knee has not been as bad. Patient Reported Progress Improving PT-OP-F Manual Assessment Start: 07/22/21 09:32 Freq: Status: Active Protocol: Document 07/22/21 11:20 [facility] (Rec: 07/29/21 14:08 [facility] [id number]) Manual Assessments Soft Tissue Assessment Soft Tissue Mobility Assessment tightness of the ITB both distallty and proximally quad tightness left iliopsoas tightness left Joint Mobility Assessment Joint Mobility Assessment Decreased posterior and lateral glide of the left hip PT-OP-J Posture/Palpation/Skin Start: 07/22/21 09:32 Freq: Status: Active Protocol: Document 07/22/21 11:20 [facility] (Rec: 07/29/21 09:43 [facility] [id number]) Palpation Assessment Location left hip Palpation Location LEFT ITB both proximal and distal attachments Palpation Findings Soft Tissue Tightness,Muscle Guarding,Tenderness PT-OP-K Range of Motion Start: 07/22/21 09:32 Freq: Status: Active Protocol: Document 07/22/21 11:20 [facility] (Rec: 07/29/21 14:14 [facility] [id number]) Hip Goniometric Range of Motion Hip Left Hip ROM WFL No Testing Position Supine Flexion w/Knee Flexed 110 Straight Leg Raise 55 External Rotation 5 Hip ROM Limitations Hip ROM Limitations Soft Tissue Tightness Comments limited in hip ER and hip flexion and hip extension due to iliopsoas tightness, + aldo test on the left PT-OP-Q Treatments Start: 07/22/21 09:32 Freq: Status: Active Protocol: Document 12/01/21 15:15 [facility] (Rec: 12/01/21 17:33 [facility] [id number]) Therapeutic Exercises Supine Exercises piriformis stretch Reps/Minutes 1-2 min hamstring and ITB stretch Reps/Minutes 1-2 min Manual Therapy Treatment Soft Tissue Mobilization ITB release Mobilization Type Myofascial Release Body Position Supine Comments ITB release, worked on distal ITB attachments with gusha Manual Techniques sidelying quad and ITB stretch Comments manual stretch with overpressure posterior capsule mobilization of the left hip Reps/Duration x 5 reps Comments grade III MWM lateral hip distraction with Comments MWM lateral hip distraction with hip IR/ER/Flexion PT-OP-R Modalities Start: 08/20/21 18:50 Freq: Status: Active Protocol: Document 11/05/21 14:30 [facility] (Rec: 11/05/21 17:35 [facility] [id number]) Ultrasound Therapy Treatment left ITB proximal Treatment Duration (minutes) 8 Patient Position Sidelying Applicator Size (cm2) 5 Frequency Setting (mHz) 1 Intensity Setting (w/cm2) 1.5 PT-OP-T Assessment and Plan Start: 07/22/21 09:32 Freq: Status: Active Protocol: Document 12/01/21 15:16 [facility] (Rec: 12/01/21 16:01 [facility] [id number]) Physical Therapy Assessment Assessment Summary Assessment Maura has found some stretches by getting into and out of her camper that seem to really help loosen her ITB at her knee. This inturn really helps her hip. She has a ortho appt this next week for further diagnostic info. Physical Therapy Plan Frequency and Duration Frequency of Treatment 2x/Week Duration of treatment (weeks) 12 Plan of Care Start Date 10/29/21 Plan of Care End Date 01/31/22 Therapeutic Interventions Therapeutic Interventions Home Exercise Program,Joint Mobilizations,Manual Therapy, Patient/Caregiver Education, Sensory Integration,Soft Tissue Mobilization, Therapeutic Exercises Modalities Electric Stimulation Next Visit Focus/Plan Next Note Type Treatment Note Next Visit Plan Work on manual therapy techniques for hip mobility into hip flexion/ER. MFR techniques for the ITB, Review HEP
--- NOTE | 2021-12-15 17:22 | PT.OTN ---
Current Diagnoses Pain in left hip (12/15/21) Physical Therapy Treatment Note PT-OP-A Visit Information Start: 07/22/21 09:32 Freq: Status: Active Protocol: Document 12/15/21 14:35 [facility] (Rec: 12/15/21 17:20 [facility] [id number]) Out-Patient Physical Therapy Visit Information Visit Information Visit Type Treatment Note Visit Start Time 14:35 Visit Stop Time 15:00 Total Visit Minutes 40 Visit Number 13 PT-OP-B Current Condition Start: 07/22/21 09:32 Freq: Status: Active Protocol: Document 07/22/21 11:20 [facility] (Rec: 07/22/21 12:11 [facility] [id number]) Current Condition History of Current Condition Onset Date slowly progressing since last course of PT in 2020 Current Complaints left hip pain decreased ROM and flare after certain activities alia ER History of Current Condition pt notes it has been a year since her last PT, she has been doing yoga and all her stretches, the left hip continues to be chronic and it continues to flare for no reason. She was diagnosed with bursitis and moderate arthritis, the pain seems to be primarily ITB both at the knee and at the hip attachments. She has burning pain at both of the ITB tendon attachments. Her left hip is her more dominant hip. She reports the pain comes on after specific activities and can range from 2-3/10 to 6/10 pain. She reports being limited with hip ER specifically. Treatment Goals Patient/Caregiver Goals Pt would like to gain as much ROM as she can and would like exercises and ideas for home that she can do to help her hip ROM and decrease her pain Prior Functional Status Baseline Function- ADL's Independent Baseline Function- Mobility Independent Current Functional Impairments (Reported) Functional Limitations- Mobility/Gait limited with hip mobility into hip ER, unable to sit crosslegged. Flare up after certain activities such as walking down hill and pain will rolling in bed to her back PT-OP-C Subjective Start: 07/22/21 09:32 Freq: Status: Active Protocol: Document 12/15/21 14:35 [facility] (Rec: 12/15/21 14:49 [facility] [id number]) OP-PT Subjective Patient Comments Patient Comments pt had a xray on her knee which was normal, she was pronating on her left foot more so than her left. She got some super feet and has been wearing them and feels it has been really helpful, its her hip flexion in standing that seems to irritate it. Pt would like to move towards strengthening. Patient Reported Progress Improving PT-OP-F Manual Assessment Start: 07/22/21 09:32 Freq: Status: Active Protocol: Document 07/22/21 11:20 [facility] (Rec: 07/29/21 14:08 [facility] [id number]) Manual Assessments Soft Tissue Assessment Soft Tissue Mobility Assessment tightness of the ITB both distallty and proximally quad tightness left iliopsoas tightness left Joint Mobility Assessment Joint Mobility Assessment Decreased posterior and lateral glide of the left hip PT-OP-J Posture/Palpation/Skin Start: 07/22/21 09:32 Freq: Status: Active Protocol: Document 07/22/21 11:20 [facility] (Rec: 07/29/21 09:43 [facility] [id number]) Palpation Assessment Location left hip Palpation Location LEFT ITB both proximal and distal attachments Palpation Findings Soft Tissue Tightness,Muscle Guarding,Tenderness PT-OP-K Range of Motion Start: 07/22/21 09:32 Freq: Status: Active Protocol: Document 07/22/21 11:20 [facility] (Rec: 07/29/21 14:14 [facility] [id number]) Hip Goniometric Range of Motion Hip Left Hip ROM WFL No Testing Position Supine Flexion w/Knee Flexed 110 Straight Leg Raise 55 External Rotation 5 Hip ROM Limitations Hip ROM Limitations Soft Tissue Tightness Comments limited in hip ER and hip flexion and hip extension due to iliopsoas tightness, + aldo test on the left PT-OP-Q Treatments Start: 07/22/21 09:32 Freq: Status: Active Protocol: Document 12/15/21 14:35 [facility] (Rec: 12/15/21 17:20 [facility] [id number]) Manual Therapy Treatment Soft Tissue Mobilization ITB release Mobilization Type Myofascial Release Body Position Supine Comments ITB release, worked on distal ITB attachments with gusha iliopsoas release Body Location left iliopsoas Body Position supine and aldo test position quad MFR Mobilization Type Myofascial Release Intensity/Depth Superficial Body Position Sidelying Manual Techniques sidelying quad and ITB stretch Comments manual stretch with overpressure PT-OP-R Modalities Start: 08/20/21 18:50 Freq: Status: Active Protocol: Document 12/15/21 14:35 [facility] (Rec: 12/15/21 17:21 [facility] [id number]) Ultrasound Therapy Treatment left distal ITB attachment Treatment Duration (minutes) 5 Patient Position Sidelying Coupling Medium Ultrasound Gel Applicator Size (cm2) 5 Mode Setting Continuous Duty Cycle 100% Intensity Setting (w/cm2) 1.5 left ITB proximal Treatment Duration (minutes) 5 Patient Position Sidelying Applicator Size (cm2) 5 Duty Cycle 100% Intensity Setting (w/cm2) 1.5 PT-OP-T Assessment and Plan Start: 07/22/21 09:32 Freq: Status: Active Protocol: Document 12/15/21 14:35 [facility] (Rec: 12/15/21 17:20 [facility] [id number]) Physical Therapy Assessment Assessment Summary Assessment ortho suggested superfeet for Maura as she pronates more on the left foot. She has been wearing then and feels they are really helping her, her hip and knee were not as imflammed today. Physical Therapy Plan Frequency and Duration Frequency of Treatment 2x/Week Duration of treatment (weeks) 12 Plan of Care Start Date 10/29/21 Plan of Care End Date 01/31/22 Therapeutic Interventions Therapeutic Interventions Home Exercise Program,Joint Mobilizations,Manual Therapy, Patient/Caregiver Education, Sensory Integration,Soft Tissue Mobilization, Therapeutic Exercises Modalities Electric Stimulation Next Visit Focus/Plan Next Note Type Treatment Note Next Visit Plan Work on manual therapy techniques for hip mobility into hip flexion/ER. MFR techniques for the ITB, Review HEP
--- NOTE | 2021-12-17 15:14 | PT.OTN ---
Current Diagnoses Pain in left hip (12/17/21) Physical Therapy Treatment Note PT-OP-A Visit Information Start: 07/22/21 09:32 Freq: Status: Active Protocol: Document 12/17/21 11:16 [facility] (Rec: 12/17/21 12:11 [facility] [id number]) Out-Patient Physical Therapy Visit Information Visit Information Visit Type Treatment Note Visit Start Time 11:15 Visit Stop Time 12:00 Total Visit Minutes 45 Visit Number 14 PT-OP-B Current Condition Start: 07/22/21 09:32 Freq: Status: Active Protocol: Document 07/22/21 11:20 [facility] (Rec: 07/22/21 12:11 [facility] [id number]) Current Condition History of Current Condition Onset Date slowly progressing since last course of PT in 2020 Current Complaints left hip pain decreased ROM and flare after certain activities alia ER History of Current Condition pt notes it has been a year since her last PT, she has been doing yoga and all her stretches, the left hip continues to be chronic and it continues to flare for no reason. She was diagnosed with bursitis and moderate arthritis, the pain seems to be primarily ITB both at the knee and at the hip attachments. She has burning pain at both of the ITB tendon attachments. Her left hip is her more dominant hip. She reports the pain comes on after specific activities and can range from 2-3/10 to 6/10 pain. She reports being limited with hip ER specifically. Treatment Goals Patient/Caregiver Goals Pt would like to gain as much ROM as she can and would like exercises and ideas for home that she can do to help her hip ROM and decrease her pain Prior Functional Status Baseline Function- ADL's Independent Baseline Function- Mobility Independent Current Functional Impairments (Reported) Functional Limitations- Mobility/Gait limited with hip mobility into hip ER, unable to sit crosslegged. Flare up after certain activities such as walking down hill and pain will rolling in bed to her back PT-OP-C Subjective Start: 07/22/21 09:32 Freq: Status: Active Protocol: Document 12/15/21 14:35 [facility] (Rec: 12/15/21 14:49 [facility] [id number]) OP-PT Subjective Patient Comments Patient Comments pt had a xray on her knee which was normal, she was pronating on her left foot more so than her left. She got some super feet and has been wearing them and feels it has been really helpful, its her hip flexion in standing that seems to irritate it. Pt would like to move towards strengthening. Patient Reported Progress Improving PT-OP-F Manual Assessment Start: 07/22/21 09:32 Freq: Status: Active Protocol: Document 07/22/21 11:20 [facility] (Rec: 07/29/21 14:08 [facility] [id number]) Manual Assessments Soft Tissue Assessment Soft Tissue Mobility Assessment tightness of the ITB both distallty and proximally quad tightness left iliopsoas tightness left Joint Mobility Assessment Joint Mobility Assessment Decreased posterior and lateral glide of the left hip PT-OP-J Posture/Palpation/Skin Start: 07/22/21 09:32 Freq: Status: Active Protocol: Document 07/22/21 11:20 [facility] (Rec: 07/29/21 09:43 [facility] [id number]) Palpation Assessment Location left hip Palpation Location LEFT ITB both proximal and distal attachments Palpation Findings Soft Tissue Tightness,Muscle Guarding,Tenderness PT-OP-K Range of Motion Start: 07/22/21 09:32 Freq: Status: Active Protocol: Document 07/22/21 11:20 [facility] (Rec: 07/29/21 14:14 [facility] [id number]) Hip Goniometric Range of Motion Hip Left Hip ROM WFL No Testing Position Supine Flexion w/Knee Flexed 110 Straight Leg Raise 55 External Rotation 5 Hip ROM Limitations Hip ROM Limitations Soft Tissue Tightness Comments limited in hip ER and hip flexion and hip extension due to iliopsoas tightness, + aldo test on the left PT-OP-Q Treatments Start: 07/22/21 09:32 Freq: Status: Active Protocol: Document 12/17/21 15:10 [facility] (Rec: 12/17/21 15:13 [facility] [id number]) Manual Therapy Treatment Soft Tissue Mobilization ITB release Mobilization Type Myofascial Release Body Position Supine Comments ITB release, worked on distal ITB attachments with gusha iliopsoas release Body Location left iliopsoas Body Position supine and aldo test position quad MFR Mobilization Type Myofascial Release Intensity/Depth Superficial Body Position Sidelying Manual Techniques posterior capsule mobilization of the left hip Reps/Duration x 5 reps Comments grade III MWM lateral hip distraction with Comments MWM lateral hip distraction with hip IR/ER/Flexion PT-OP-R Modalities Start: 08/20/21 18:50 Freq: Status: Active Protocol: Document 12/17/21 15:10 [facility] (Rec: 12/17/21 15:13 [facility] [id number]) Ultrasound Therapy Treatment left distal ITB attachment Treatment Duration (minutes) 8 Patient Position Sidelying Coupling Medium Ultrasound Gel Applicator Size (cm2) 5 Mode Setting Continuous Duty Cycle 100% Intensity Setting (w/cm2) 1.5 PT-OP-T Assessment and Plan Start: 07/22/21 09:32 Freq: Status: Active Protocol: Document 12/17/21 15:10 [facility] (Rec: 12/17/21 15:13 [facility] [id number]) Physical Therapy Assessment Assessment Summary Assessment Maura is really feeling like the super feet are helping her , she has been tight in the TFL so I am encouraging lateral side steps and hip rollouts for her to activate the gluteus medius Physical Therapy Plan Frequency and Duration Frequency of Treatment 2x/Week Duration of treatment (weeks) 12 Plan of Care Start Date 10/29/21 Plan of Care End Date 01/31/22 Therapeutic Interventions Therapeutic Interventions Home Exercise Program,Joint Mobilizations,Manual Therapy, Patient/Caregiver Education, Sensory Integration,Soft Tissue Mobilization, Therapeutic Exercises Modalities Electric Stimulation Next Visit Focus/Plan Next Note Type Treatment Note Next Visit Plan Work on manual therapy techniques for hip mobility into hip flexion/ER. MFR techniques for the ITB, Review HEP
--- NOTE | 2021-12-17 17:42 | PT.OTN ---
Current Diagnoses Pain in left hip (12/17/21) Physical Therapy Treatment Note PT-OP-A Visit Information Start: 07/22/21 09:32 Freq: Status: Active Protocol: Document 12/17/21 11:16 [facility] (Rec: 12/17/21 12:11 [facility] [id number]) Out-Patient Physical Therapy Visit Information Visit Information Visit Type Treatment Note Visit Start Time 11:15 Visit Stop Time 12:00 Total Visit Minutes 45 Visit Number 14 PT-OP-B Current Condition Start: 07/22/21 09:32 Freq: Status: Active Protocol: Document 07/22/21 11:20 [facility] (Rec: 07/22/21 12:11 [facility] [id number]) Current Condition History of Current Condition Onset Date slowly progressing since last course of PT in 2020 Current Complaints left hip pain decreased ROM and flare after certain activities alia ER History of Current Condition pt notes it has been a year since her last PT, she has been doing yoga and all her stretches, the left hip continues to be chronic and it continues to flare for no reason. She was diagnosed with bursitis and moderate arthritis, the pain seems to be primarily ITB both at the knee and at the hip attachments. She has burning pain at both of the ITB tendon attachments. Her left hip is her more dominant hip. She reports the pain comes on after specific activities and can range from 2-3/10 to 6/10 pain. She reports being limited with hip ER specifically. Treatment Goals Patient/Caregiver Goals Pt would like to gain as much ROM as she can and would like exercises and ideas for home that she can do to help her hip ROM and decrease her pain Prior Functional Status Baseline Function- ADL's Independent Baseline Function- Mobility Independent Current Functional Impairments (Reported) Functional Limitations- Mobility/Gait limited with hip mobility into hip ER, unable to sit crosslegged. Flare up after certain activities such as walking down hill and pain will rolling in bed to her back PT-OP-C Subjective Start: 07/22/21 09:32 Freq: Status: Active Protocol: Document 12/17/21 11:15 [facility] (Rec: 12/17/21 17:40 [facility] [id number]) OP-PT Subjective Patient Comments Patient Comments Maura notes she feels the mascial work on the ITB helps her and she can't get the same work in at home PT-OP-F Manual Assessment Start: 07/22/21 09:32 Freq: Status: Active Protocol: Document 07/22/21 11:20 [facility] (Rec: 07/29/21 14:08 [facility] [id number]) Manual Assessments Soft Tissue Assessment Soft Tissue Mobility Assessment tightness of the ITB both distallty and proximally quad tightness left iliopsoas tightness left Joint Mobility Assessment Joint Mobility Assessment Decreased posterior and lateral glide of the left hip PT-OP-J Posture/Palpation/Skin Start: 07/22/21 09:32 Freq: Status: Active Protocol: Document 07/22/21 11:20 [facility] (Rec: 07/29/21 09:43 [facility] [id number]) Palpation Assessment Location left hip Palpation Location LEFT ITB both proximal and distal attachments Palpation Findings Soft Tissue Tightness,Muscle Guarding,Tenderness PT-OP-K Range of Motion Start: 07/22/21 09:32 Freq: Status: Active Protocol: Document 07/22/21 11:20 [facility] (Rec: 07/29/21 14:14 [facility] [id number]) Hip Goniometric Range of Motion Hip Left Hip ROM WFL No Testing Position Supine Flexion w/Knee Flexed 110 Straight Leg Raise 55 External Rotation 5 Hip ROM Limitations Hip ROM Limitations Soft Tissue Tightness Comments limited in hip ER and hip flexion and hip extension due to iliopsoas tightness, + aldo test on the left PT-OP-Q Treatments Start: 07/22/21 09:32 Freq: Status: Active Protocol: Document 12/17/21 11:16 [facility] (Rec: 12/17/21 15:13 [facility] [id number]) Manual Therapy Treatment Soft Tissue Mobilization ITB release Mobilization Type Myofascial Release Body Position Supine Comments ITB release, worked on distal ITB attachments with gusha iliopsoas release Body Location left iliopsoas Body Position supine and aldo test position quad MFR Mobilization Type Myofascial Release Intensity/Depth Superficial Body Position Sidelying Manual Techniques posterior capsule mobilization of the left hip Reps/Duration x 5 reps Comments grade III MWM lateral hip distraction with Comments MWM lateral hip distraction with hip IR/ER/Flexion PT-OP-R Modalities Start: 08/20/21 18:50 Freq: Status: Active Protocol: Document 12/17/21 11:16 [facility] (Rec: 12/17/21 15:13 [facility] [id number]) Ultrasound Therapy Treatment left distal ITB attachment Treatment Duration (minutes) 8 Patient Position Sidelying Coupling Medium Ultrasound Gel Applicator Size (cm2) 5 Mode Setting Continuous Duty Cycle 100% Intensity Setting (w/cm2) 1.5 PT-OP-T Assessment and Plan Start: 07/22/21 09:32 Freq: Status: Active Protocol: Document 12/17/21 11:16 [facility] (Rec: 12/17/21 15:13 [facility] [id number]) Physical Therapy Assessment Assessment Summary Assessment Maura is really feeling like the super feet are helping her , she has been tight in the TFL so I am encouraging lateral side steps and hip rollouts for her to activate the gluteus medius Physical Therapy Plan Frequency and Duration Frequency of Treatment 2x/Week Duration of treatment (weeks) 12 Plan of Care Start Date 10/29/21 Plan of Care End Date 01/31/22 Therapeutic Interventions Therapeutic Interventions Home Exercise Program,Joint Mobilizations,Manual Therapy, Patient/Caregiver Education, Sensory Integration,Soft Tissue Mobilization, Therapeutic Exercises Modalities Electric Stimulation Next Visit Focus/Plan Next Note Type Treatment Note Next Visit Plan Work on manual therapy techniques for hip mobility into hip flexion/ER. MFR techniques for the ITB, Review HEP
--- NOTE | 2021-12-22 17:24 | PT.OTN ---
Current Diagnoses Pain in left hip (12/22/21) Physical Therapy Treatment Note PT-OP-A Visit Information Start: 07/22/21 09:32 Freq: Status: Active Protocol: Document 12/22/21 14:30 [facility] (Rec: 12/22/21 17:24 [facility] [id number]) Out-Patient Physical Therapy Visit Information Visit Information Visit Type Treatment Note Visit Start Time 14:30 Visit Stop Time 15:15 Total Visit Minutes 45 Visit Number 15 PT-OP-B Current Condition Start: 07/22/21 09:32 Freq: Status: Active Protocol: Document 07/22/21 11:20 [facility] (Rec: 07/22/21 12:11 [facility] [id number]) Current Condition History of Current Condition Onset Date slowly progressing since last course of PT in 2020 Current Complaints left hip pain decreased ROM and flare after certain activities alia ER History of Current Condition pt notes it has been a year since her last PT, she has been doing yoga and all her stretches, the left hip continues to be chronic and it continues to flare for no reason. She was diagnosed with bursitis and moderate arthritis, the pain seems to be primarily ITB both at the knee and at the hip attachments. She has burning pain at both of the ITB tendon attachments. Her left hip is her more dominant hip. She reports the pain comes on after specific activities and can range from 2-3/10 to 6/10 pain. She reports being limited with hip ER specifically. Treatment Goals Patient/Caregiver Goals Pt would like to gain as much ROM as she can and would like exercises and ideas for home that she can do to help her hip ROM and decrease her pain Prior Functional Status Baseline Function- ADL's Independent Baseline Function- Mobility Independent Current Functional Impairments (Reported) Functional Limitations- Mobility/Gait limited with hip mobility into hip ER, unable to sit crosslegged. Flare up after certain activities such as walking down hill and pain will rolling in bed to her back PT-OP-C Subjective Start: 07/22/21 09:32 Freq: Status: Active Protocol: Document 12/22/21 14:30 [facility] (Rec: 12/22/21 17:24 [facility] [id number]) OP-PT Subjective Patient Comments Patient Comments Maura notes continued improvement and feels that she is making progress. She is not having the intense pain with walking or when she stubs her toe. PT-OP-F Manual Assessment Start: 07/22/21 09:32 Freq: Status: Active Protocol: Document 07/22/21 11:20 [facility] (Rec: 07/29/21 14:08 [facility] [id number]) Manual Assessments Soft Tissue Assessment Soft Tissue Mobility Assessment tightness of the ITB both distallty and proximally quad tightness left iliopsoas tightness left Joint Mobility Assessment Joint Mobility Assessment Decreased posterior and lateral glide of the left hip PT-OP-J Posture/Palpation/Skin Start: 07/22/21 09:32 Freq: Status: Active Protocol: Document 07/22/21 11:20 [facility] (Rec: 07/29/21 09:43 [facility] [id number]) Palpation Assessment Location left hip Palpation Location LEFT ITB both proximal and distal attachments Palpation Findings Soft Tissue Tightness,Muscle Guarding,Tenderness PT-OP-K Range of Motion Start: 07/22/21 09:32 Freq: Status: Active Protocol: Document 07/22/21 11:20 [facility] (Rec: 07/29/21 14:14 [facility] [id number]) Hip Goniometric Range of Motion Hip Left Hip ROM WFL No Testing Position Supine Flexion w/Knee Flexed 110 Straight Leg Raise 55 External Rotation 5 Hip ROM Limitations Hip ROM Limitations Soft Tissue Tightness Comments limited in hip ER and hip flexion and hip extension due to iliopsoas tightness, + aldo test on the left PT-OP-Q Treatments Start: 07/22/21 09:32 Freq: Status: Active Protocol: Document 12/22/21 14:30 [facility] (Rec: 12/22/21 17:24 [facility] [id number]) Manual Therapy Treatment Soft Tissue Mobilization ITB release Mobilization Type Myofascial Release Body Position Supine Comments ITB release, worked on distal ITB attachments with gusha quad MFR Mobilization Type Myofascial Release Intensity/Depth Superficial Body Position Sidelying Manual Techniques posterior capsule mobilization of the left hip Reps/Duration x 5 reps Comments grade III MWM lateral hip distraction with Comments MWM lateral hip distraction with hip IR/ER/Flexion PT-OP-R Modalities Start: 08/20/21 18:50 Freq: Status: Active Protocol: Document 12/22/21 14:30 [facility] (Rec: 12/22/21 17:24 [facility] [id number]) Ultrasound Therapy Treatment left distal ITB attachment Treatment Duration (minutes) 8 Patient Position Sidelying Coupling Medium Ultrasound Gel Applicator Size (cm2) 5 Mode Setting Continuous Duty Cycle 100% Intensity Setting (w/cm2) 1.5 PT-OP-T Assessment and Plan Start: 07/22/21 09:32 Freq: Status: Active Protocol: Document 12/22/21 14:30 [facility] (Rec: 12/22/21 17:24 [facility] [id number]) Physical Therapy Assessment Assessment Summary Assessment Maura has made good progress and was not as tight or tender in the TFL region today Physical Therapy Plan Frequency and Duration Frequency of Treatment 2x/Week Duration of treatment (weeks) 12 Plan of Care Start Date 10/29/21 Plan of Care End Date 01/31/22 Therapeutic Interventions Therapeutic Interventions Home Exercise Program,Joint Mobilizations,Manual Therapy, Patient/Caregiver Education, Sensory Integration,Soft Tissue Mobilization, Therapeutic Exercises Modalities Electric Stimulation Next Visit Focus/Plan Next Note Type Treatment Note Next Visit Plan Work on manual therapy techniques for hip mobility into hip flexion/ER. MFR techniques for the ITB, Review HEP
--- NOTE | 2021-12-24 17:58 | PT.OTN ---
Current Diagnoses Pain in left hip (12/24/21) Physical Therapy Treatment Note PT-OP-A Visit Information Start: 07/22/21 09:32 Freq: Status: Active Protocol: Document 12/24/21 14:33 [facility] (Rec: 12/24/21 15:22 [facility] [id number]) Out-Patient Physical Therapy Visit Information Visit Information Visit Type Treatment Note Visit Start Time 14:30 Visit Stop Time 15:15 Total Visit Minutes 45 Visit Number 16 PT-OP-B Current Condition Start: 07/22/21 09:32 Freq: Status: Active Protocol: Document 07/22/21 11:20 [facility] (Rec: 07/22/21 12:11 [facility] [id number]) Current Condition History of Current Condition Onset Date slowly progressing since last course of PT in 2020 Current Complaints left hip pain decreased ROM and flare after certain activities alia ER History of Current Condition pt notes it has been a year since her last PT, she has been doing yoga and all her stretches, the left hip continues to be chronic and it continues to flare for no reason. She was diagnosed with bursitis and moderate arthritis, the pain seems to be primarily ITB both at the knee and at the hip attachments. She has burning pain at both of the ITB tendon attachments. Her left hip is her more dominant hip. She reports the pain comes on after specific activities and can range from 2-3/10 to 6/10 pain. She reports being limited with hip ER specifically. Treatment Goals Patient/Caregiver Goals Pt would like to gain as much ROM as she can and would like exercises and ideas for home that she can do to help her hip ROM and decrease her pain Prior Functional Status Baseline Function- ADL's Independent Baseline Function- Mobility Independent Current Functional Impairments (Reported) Functional Limitations- Mobility/Gait limited with hip mobility into hip ER, unable to sit crosslegged. Flare up after certain activities such as walking down hill and pain will rolling in bed to her back PT-OP-C Subjective Start: 07/22/21 09:32 Freq: Status: Active Protocol: Document 12/24/21 14:33 [facility] (Rec: 12/24/21 15:22 [facility] [id number]) OP-PT Subjective Patient Comments Patient Comments pt is a litte stiff today as she sat for 1.5 hours in a spot in her dining room and afterwards she felt stiff in her left ITB Patient Reported Progress Improving PT-OP-F Manual Assessment Start: 07/22/21 09:32 Freq: Status: Active Protocol: Document 07/22/21 11:20 [facility] (Rec: 07/29/21 14:08 [facility] [id number]) Manual Assessments Soft Tissue Assessment Soft Tissue Mobility Assessment tightness of the ITB both distallty and proximally quad tightness left iliopsoas tightness left Joint Mobility Assessment Joint Mobility Assessment Decreased posterior and lateral glide of the left hip PT-OP-J Posture/Palpation/Skin Start: 07/22/21 09:32 Freq: Status: Active Protocol: Document 07/22/21 11:20 [facility] (Rec: 07/29/21 09:43 [facility] [id number]) Palpation Assessment Location left hip Palpation Location LEFT ITB both proximal and distal attachments Palpation Findings Soft Tissue Tightness,Muscle Guarding,Tenderness PT-OP-K Range of Motion Start: 07/22/21 09:32 Freq: Status: Active Protocol: Document 07/22/21 11:20 [facility] (Rec: 07/29/21 14:14 [facility] [id number]) Hip Goniometric Range of Motion Hip Left Hip ROM WFL No Testing Position Supine Flexion w/Knee Flexed 110 Straight Leg Raise 55 External Rotation 5 Hip ROM Limitations Hip ROM Limitations Soft Tissue Tightness Comments limited in hip ER and hip flexion and hip extension due to iliopsoas tightness, + aldo test on the left PT-OP-Q Treatments Start: 07/22/21 09:32 Freq: Status: Active Protocol: Document 12/24/21 17:52 [facility] (Rec: 12/24/21 17:57 [facility] [id number]) Manual Therapy Treatment Soft Tissue Mobilization ITB release Mobilization Type Myofascial Release Body Position Supine Comments ITB release, worked on distal ITB attachments with gusha iliopsoas release Body Location left iliopsoas Body Position supine and aldo test position quad MFR Mobilization Type Myofascial Release Intensity/Depth Superficial Body Position Sidelying Manual Techniques long axis leg distraction Reps/Duration 1-2 min hold posterior capsule mobilization of the left hip Reps/Duration x 5 reps Comments grade III PT-OP-R Modalities Start: 08/20/21 18:50 Freq: Status: Active Protocol: Document 12/24/21 17:52 [facility] (Rec: 12/24/21 17:57 [facility] [id number]) Ultrasound Therapy Treatment left ITB proximal Treatment Duration (minutes) 8 Patient Position Sidelying Applicator Size (cm2) 5 Duty Cycle 100% Intensity Setting (w/cm2) 1.5 PT-OP-T Assessment and Plan Start: 07/22/21 09:32 Freq: Status: Active Protocol: Document 12/24/21 17:52 [facility] (Rec: 12/24/21 17:57 [facility] [id number]) Physical Therapy Assessment Assessment Summary Assessment we talked today about sitting posture and making sure Maura has good foot placement when sitting as today she was prched on her toes. Her knee tends to adduct in sitting too so we worked on sitting with feet flat and knees open to decreased ITB tightening. Physical Therapy Plan Frequency and Duration Frequency of Treatment 2x/Week Duration of treatment (weeks) 12 Plan of Care Start Date 10/29/21 Plan of Care End Date 01/31/22 Therapeutic Interventions Therapeutic Interventions Home Exercise Program,Joint Mobilizations,Manual Therapy, Patient/Caregiver Education, Sensory Integration,Soft Tissue Mobilization, Therapeutic Exercises Modalities Electric Stimulation Next Visit Focus/Plan Next Note Type Treatment Note Next Visit Plan Work on manual therapy techniques for hip mobility into hip flexion/ER. MFR techniques for the ITB, Review HEP
--- NOTE | 2021-12-29 18:07 | PT.OTN ---
Current Diagnoses Pain in left hip (12/29/21) Physical Therapy Treatment Note PT-OP-A Visit Information Start: 07/22/21 09:32 Freq: Status: Active Protocol: Document 12/29/21 13:52 [facility] (Rec: 12/29/21 14:36 [facility] [id number]) Out-Patient Physical Therapy Visit Information Visit Information Visit Type Treatment Note Visit Start Time 13:50 Visit Stop Time 14:30 Total Visit Minutes 40 Visit Number 17 PT-OP-B Current Condition Start: 07/22/21 09:32 Freq: Status: Active Protocol: Document 07/22/21 11:20 [facility] (Rec: 07/22/21 12:11 [facility] [id number]) Current Condition History of Current Condition Onset Date slowly progressing since last course of PT in 2020 Current Complaints left hip pain decreased ROM and flare after certain activities alia ER History of Current Condition pt notes it has been a year since her last PT, she has been doing yoga and all her stretches, the left hip continues to be chronic and it continues to flare for no reason. She was diagnosed with bursitis and moderate arthritis, the pain seems to be primarily ITB both at the knee and at the hip attachments. She has burning pain at both of the ITB tendon attachments. Her left hip is her more dominant hip. She reports the pain comes on after specific activities and can range from 2-3/10 to 6/10 pain. She reports being limited with hip ER specifically. Treatment Goals Patient/Caregiver Goals Pt would like to gain as much ROM as she can and would like exercises and ideas for home that she can do to help her hip ROM and decrease her pain Prior Functional Status Baseline Function- ADL's Independent Baseline Function- Mobility Independent Current Functional Impairments (Reported) Functional Limitations- Mobility/Gait limited with hip mobility into hip ER, unable to sit crosslegged. Flare up after certain activities such as walking down hill and pain will rolling in bed to her back PT-OP-C Subjective Start: 07/22/21 09:32 Freq: Status: Active Protocol: Document 12/29/21 13:52 [facility] (Rec: 12/29/21 14:36 [facility] [id number]) OP-PT Subjective Patient Comments Patient Comments pt notes her hip and knee are both tender today and standing causes it to ache and raising her hip increases her pain. She is not sure what has been causing the increase in tightness. She will be taking time off of PT after today and will resume in February 2022 so would like to review her HEP and self care options PT-OP-F Manual Assessment Start: 07/22/21 09:32 Freq: Status: Active Protocol: Document 07/22/21 11:20 [facility] (Rec: 07/29/21 14:08 [facility] [id number]) Manual Assessments Soft Tissue Assessment Soft Tissue Mobility Assessment tightness of the ITB both distallty and proximally quad tightness left iliopsoas tightness left Joint Mobility Assessment Joint Mobility Assessment Decreased posterior and lateral glide of the left hip PT-OP-J Posture/Palpation/Skin Start: 07/22/21 09:32 Freq: Status: Active Protocol: Document 07/22/21 11:20 [facility] (Rec: 07/29/21 09:43 [facility] [id number]) Palpation Assessment Location left hip Palpation Location LEFT ITB both proximal and distal attachments Palpation Findings Soft Tissue Tightness,Muscle Guarding,Tenderness PT-OP-K Range of Motion Start: 07/22/21 09:32 Freq: Status: Active Protocol: Document 07/22/21 11:20 [facility] (Rec: 07/29/21 14:14 [facility] [id number]) Hip Goniometric Range of Motion Hip Left Hip ROM WFL No Testing Position Supine Flexion w/Knee Flexed 110 Straight Leg Raise 55 External Rotation 5 Hip ROM Limitations Hip ROM Limitations Soft Tissue Tightness Comments limited in hip ER and hip flexion and hip extension due to iliopsoas tightness, + aldo test on the left PT-OP-Q Treatments Start: 07/22/21 09:32 Freq: Status: Active Protocol: Document 12/29/21 13:50 [facility] (Rec: 12/29/21 18:07 [facility] [id number]) Manual Therapy Treatment Soft Tissue Mobilization iliopsoas release Body Location left iliopsoas Body Position supine and aldo test position quad MFR Mobilization Type Myofascial Release Intensity/Depth Superficial Body Position Sidelying Self-Care/Home Management Treatment Education Patient Education Home Exercise Program,Pain Management Other Education education on her self care with gusha and stretches to continue working on at home. Focusing on quad release. Pt to add in stationary bike to HEP PT-OP-R Modalities Start: 08/20/21 18:50 Freq: Status: Active Protocol: Document 12/29/21 13:50 [facility] (Rec: 12/29/21 18:07 [facility] [id number]) Ultrasound Therapy Treatment left ITB proximal Treatment Duration (minutes) 8 Patient Position Sidelying Applicator Size (cm2) 5 Duty Cycle 100% Intensity Setting (w/cm2) 1.5 PT-OP-T Assessment and Plan Start: 07/22/21 09:32 Freq: Status: Active Protocol: Document 12/29/21 13:50 [facility] (Rec: 12/29/21 18:07 [facility] [id number]) Physical Therapy Assessment Goals 4 Impairment Myofascial tightness of the ITB Director Of Global Sales Goal (LTG) With manual therapy techniques we are able to improve the fascial mobility of the ITB helping to decrease compression of the bursa and the fibula head at the knee pt still c/o tightness at the knee but has decreased c/o tightness at the proximal attachments LTG Duration 12 weeks 3 Impairment Pain with walking down a incline or stairs Short Term Goal (STG) Maura is educated on self hip capsule stretches to help with improved hip flexion and ER GOAL MET STG Duration 4 weeks [facility] Goal (LTG) Maura notes a overall reduction of pain with stairs and walking down hill Good progress LTG Duration 12 weeks 2 Impairment hip pain ranging from 2-6/10 depending on activity as well as distal ITB pain at the knee Director Of Global Sales Goal (LTG) Maura reports overall reduction in her pain symptoms lowering her pain to 1-3/10 Excellent progress LTG Duration 12 weeks 1 Impairment Decreased hip ROM most significantly into flexion and ER, pt is unable to sit cross legged. Director Of Global Sales Goal (LTG) Maura notes more comfort with sitting cross legged and shows improvements with her hip ROM into ER and flexion Physical Therapy Plan Frequency and Duration Frequency of Treatment 2x/Week Duration of treatment (weeks) 12 Plan of Care Start Date 12/29/21 Plan of Care End Date 03/30/22 Therapeutic Interventions Therapeutic Interventions Home Exercise Program,Joint Mobilizations,Manual Therapy, Patient/Caregiver Education, Sensory Integration,Soft Tissue Mobilization, Therapeutic Exercises Modalities Electric Stimulation Next Visit Focus/Plan Next Note Type Treatment Note Next Visit Plan reassess hip ROM, special tests, strength next visit as pt will not be seen until the first of the year
--- NOTE | 2021-12-29 18:07 | PT.OPPOC ---
Physical, Occupational & Speech Therapy At [facility] Current Diagnoses Pain in left hip (12/29/21) Visit Care Team Role Provider Type Syed Perez MD Family Provider Physician Primary Care Provider Specialty: Internal Medicine Address: [address] [place] [address], [address], [place], [address] Email: [email or web address] Luis Esquivel MD Attending Provider Physician Referring Provider Specialty: Orthopedics Orthopedic Surgery [facility] Address: [address] [place] [address], [address] Email: [email or web address] Plan Of Care PT-OP-T Assessment and Plan Start: 07/22/21 09:32 Freq: Status: Active Protocol: Document 12/29/21 13:50 [facility] (Rec: 12/29/21 18:07 [facility] [id number]) Physical Therapy Assessment Goals 4 Impairment Myofascial tightness of the ITB 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 Pipeline 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 Goal (LTG) With manual therapy techniques we are able to improve the fascial mobility of the ITB helping to decrease compression of the bursa and the fibula head at the knee pt still c/o tightness at the knee but has decreased c/o tightness at the proximal attachments LTG Duration 12 weeks 3 Impairment Pain with walking down a incline or stairs Short Term Goal (STG) Maura is educated on self hip capsule stretches to help with improved hip flexion and ER GOAL MET STG Duration 4 weeks Group Home Goal (LTG) Maura notes a overall reduction of pain with stairs and walking down hill Good progress LTG Duration 12 weeks 2 Impairment hip pain ranging from 2-6/10 depending on activity as well as distal ITB pain at the knee Group Home Goal (LTG) Maura reports overall reduction in her pain symptoms lowering her pain to 1-3/10 Excellent progress LTG Duration 12 weeks 1 Impairment Decreased hip ROM most significantly into flexion and ER, pt is unable to sit cross legged. Group Home Goal (LTG) Maura notes more comfort with sitting cross legged and shows improvements with her hip ROM into ER and flexion Physical Therapy Plan Frequency and Duration Frequency of Treatment 2x/Week Duration of treatment (weeks) 12 Plan of Care Start Date 12/29/21 Plan of Care End Date 03/30/22 Therapeutic Interventions Therapeutic Interventions Home Exercise Program,Joint Mobilizations,Manual Therapy, Patient/Caregiver Education, Sensory Integration,Soft Tissue Mobilization, Therapeutic Exercises Modalities Electric Stimulation Next Visit Focus/Plan Next Note Type Treatment Note Next Visit Plan reassess hip ROM, special tests, strength next visit as pt will not be seen until the first of the year Plan of Care Dates Plan of Care Start Date 12/29/21 Plan of Care End Date 03/30/22 Electronically Signed by: Norah Yu, PT 12/29/21 [id number] If you are in agreement with this Plan of Care, please return a signed and dated copy. I have reviewed this Plan of Care and certify that the skilled therapy services above are required to meet the patient?s needs. Physician Signature Date Printed Name and Credentials Clinical Instructor Signature Printed Name and Credentials
--- NOTE | 2021-12-29 18:09 | PT.OPPN ---
Current Diagnoses Pain in left hip (12/29/21) Physical Therapy Progress Note PT-OP-A Visit Information Start: 07/22/21 09:32 Freq: Status: Active Protocol: Document 12/29/21 13:52 [facility] (Rec: 12/29/21 14:36 [facility] [id number]) Out-Patient Physical Therapy Visit Information Visit Information Visit Type Treatment Note Visit Start Time 13:50 Visit Stop Time 14:30 Total Visit Minutes 40 Visit Number 17 PT-OP-B Current Condition Start: 07/22/21 09:32 Freq: Status: Active Protocol: Document 07/22/21 11:20 [facility] (Rec: 07/22/21 12:11 [facility] [id number]) Current Condition History of Current Condition Onset Date slowly progressing since last course of PT in 2020 Current Complaints left hip pain decreased ROM and flare after certain activities alia ER History of Current Condition pt notes it has been a year since her last PT, she has been doing yoga and all her stretches, the left hip continues to be chronic and it continues to flare for no reason. She was diagnosed with bursitis and moderate arthritis, the pain seems to be primarily ITB both at the knee and at the hip attachments. She has burning pain at both of the ITB tendon attachments. Her left hip is her more dominant hip. She reports the pain comes on after specific activities and can range from 2-3/10 to 6/10 pain. She reports being limited with hip ER specifically. Treatment Goals Patient/Caregiver Goals Pt would like to gain as much ROM as she can and would like exercises and ideas for home that she can do to help her hip ROM and decrease her pain Prior Functional Status Baseline Function- ADL's Independent Baseline Function- Mobility Independent Current Functional Impairments (Reported) Functional Limitations- Mobility/Gait limited with hip mobility into hip ER, unable to sit crosslegged. Flare up after certain activities such as walking down hill and pain will rolling in bed to her back PT-OP-C Subjective Start: 07/22/21 09:32 Freq: Status: Active Protocol: Document 12/29/21 13:52 [facility] (Rec: 12/29/21 14:36 [facility] [id number]) OP-PT Subjective Patient Comments Patient Comments pt notes her hip and knee are both tender today and standing causes it to ache and raising her hip increases her pain. She is not sure what has been causing the increase in tightness. She will be taking time off of PT after today and will resume in February 2022 so would like to review her HEP and self care options PT-OP-F Manual Assessment Start: 07/22/21 09:32 Freq: Status: Active Protocol: Document 07/22/21 11:20 [facility] (Rec: 07/29/21 14:08 [facility] [id number]) Manual Assessments Soft Tissue Assessment Soft Tissue Mobility Assessment tightness of the ITB both distallty and proximally quad tightness left iliopsoas tightness left Joint Mobility Assessment Joint Mobility Assessment Decreased posterior and lateral glide of the left hip PT-OP-J Posture/Palpation/Skin Start: 07/22/21 09:32 Freq: Status: Active Protocol: Document 07/22/21 11:20 [facility] (Rec: 07/29/21 09:43 [facility] [id number]) Palpation Assessment Location left hip Palpation Location LEFT ITB both proximal and distal attachments Palpation Findings Soft Tissue Tightness,Muscle Guarding,Tenderness PT-OP-K Range of Motion Start: 07/22/21 09:32 Freq: Status: Active Protocol: Document 07/22/21 11:20 [facility] (Rec: 07/29/21 14:14 [facility] [id number]) Hip Goniometric Range of Motion Hip Measured in Degrees Left Hip ROM WFL No Testing Position Supine Flexion w/Knee Flexed 110 Straight Leg Raise 55 External Rotation 5 Hip ROM Limitations Hip ROM Limitations Soft Tissue Tightness Comments limited in hip ER and hip flexion and hip extension due to iliopsoas tightness, + aldo test on the left PT-OP-T Assessment and Plan Start: 07/22/21 09:32 Freq: Status: Active Protocol: Document 12/29/21 13:50 [facility] (Rec: 12/29/21 18:07 [facility] [id number]) Physical Therapy Assessment Goals 4 Impairment Myofascial tightness of the ITB [employer] Goal (LTG) With manual therapy techniques we are able to improve the fascial mobility of the ITB helping to decrease compression of the bursa and the fibula head at the knee pt still c/o tightness at the knee but has decreased c/o tightness at the proximal attachments LTG Duration 12 weeks 3 Impairment Pain with walking down a incline or stairs Short Term Goal (STG) Maura is educated on self hip capsule stretches to help with improved hip flexion and ER GOAL MET STG Duration 4 weeks Contracts Analyst Goal (LTG) Maura notes a overall reduction of pain with stairs and walking down hill Good progress LTG Duration 12 weeks 2 Impairment hip pain ranging from 2-6/10 depending on activity as well as distal ITB pain at the knee Prison Goal (LTG) Maura reports overall reduction in her pain symptoms lowering her pain to 1-3/10 Excellent progress LTG Duration 12 weeks 1 Impairment Decreased hip ROM most significantly into flexion and ER, pt is unable to sit cross legged. Contracts Analyst Goal (LTG) Maura notes more comfort with sitting cross legged and shows improvements with her hip ROM into ER and flexion Physical Therapy Plan Frequency and Duration Frequency of Treatment 2x/Week Duration of treatment (weeks) 12 Plan of Care Start Date 12/29/21 Plan of Care End Date 03/30/22 Therapeutic Interventions Therapeutic Interventions Home Exercise Program,Joint Mobilizations,Manual Therapy, Patient/Caregiver Education, Sensory Integration,Soft Tissue Mobilization, Therapeutic Exercises Modalities Electric Stimulation Next Visit Focus/Plan Next Note Type Treatment Note Next Visit Plan reassess hip ROM, special tests, strength next visit as pt will not be seen until the first of the year
--- NOTE | 2022-03-02 11:55 | PT.OTN ---
Current Diagnoses Pain in left hip (03/02/22) Physical Therapy Treatment Note PT-OP-A Visit Information Start: 07/22/21 09:32 Freq: Status: Active Protocol: Document 03/02/22 13:00 [facility] (Rec: 03/02/22 14:10 [facility] [id number]) Out-Patient Physical Therapy Visit Information Visit Information Visit Type Progress Note Visit Start Time 13:00 Visit Stop Time 13:45 Total Visit Minutes 45 Visit Number 18 PT-OP-B Current Condition Start: 07/22/21 09:32 Freq: Status: Active Protocol: Document 07/22/21 11:20 [facility] (Rec: 07/22/21 12:11 [facility] [id number]) Current Condition History of Current Condition Onset Date slowly progressing since last course of PT in 2020 Current Complaints left hip pain decreased ROM and flare after certain activities alia ER History of Current Condition pt notes it has been a year since her last PT, she has been doing yoga and all her stretches, the left hip continues to be chronic and it continues to flare for no reason. She was diagnosed with bursitis and moderate arthritis, the pain seems to be primarily ITB both at the knee and at the hip attachments. She has burning pain at both of the ITB tendon attachments. Her left hip is her more dominant hip. She reports the pain comes on after specific activities and can range from 2-3/10 to 6/10 pain. She reports being limited with hip ER specifically. Treatment Goals Patient/Caregiver Goals Pt would like to gain as much ROM as she can and would like exercises and ideas for home that she can do to help her hip ROM and decrease her pain Prior Functional Status Baseline Function- ADL's Independent Baseline Function- Mobility Independent Current Functional Impairments (Reported) Functional Limitations- Mobility/Gait limited with hip mobility into hip ER, unable to sit crosslegged. Flare up after certain activities such as walking down hill and pain will rolling in bed to her back PT-OP-C Subjective Start: 07/22/21 09:32 Freq: Status: Active Protocol: Document 03/02/22 13:00 [facility] (Rec: 03/02/22 14:10 [facility] [id number]) OP-PT Subjective Patient Comments Patient Comments pt notes she had covid over Thanksgiving she did not have hip pain during covid . 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 She had to get a EKG and chest extra and saw Dr tolbert and was put on hydrolyzene. She has been using the super feet insoles and managing her symptoms. She did get a knee brace and it has been helping. The thing that really aggravates her hip is the leg lifting like in marching PT-OP-F Manual Assessment Start: 07/22/21 09:32 Freq: Status: Active Protocol: Document 07/22/21 11:20 [facility] (Rec: 07/29/21 14:08 [facility] [id number]) Manual Assessments Soft Tissue Assessment Soft Tissue Mobility Assessment tightness of the ITB both distallty and proximally quad tightness left iliopsoas tightness left Joint Mobility Assessment Joint Mobility Assessment Decreased posterior and lateral glide of the left hip PT-OP-J Posture/Palpation/Skin Start: 07/22/21 09:32 Freq: Status: Active Protocol: Document 07/22/21 11:20 [facility] (Rec: 07/29/21 09:43 [facility] [id number]) Palpation Assessment Location left hip Palpation Location LEFT ITB both proximal and distal attachments Palpation Findings Soft Tissue Tightness,Muscle Guarding,Tenderness PT-OP-K Range of Motion Start: 07/22/21 09:32 Freq: Status: Active Protocol: Document 07/22/21 11:20 [facility] (Rec: 07/29/21 14:14 [facility] [id number]) Hip Goniometric Range of Motion Hip Left Hip ROM WFL No Testing Position Supine Flexion w/Knee Flexed 110 Straight Leg Raise 55 External Rotation 5 Hip ROM Limitations Hip ROM Limitations Soft Tissue Tightness Comments limited in hip ER and hip flexion and hip extension due to iliopsoas tightness, + aldo test on the left PT-OP-Q Treatments Start: 07/22/21 09:32 Freq: Status: Active Protocol: Document 03/02/22 13:00 [facility] (Rec: 03/03/22 11:54 [facility] [id number]) Therapeutic Exercises Other Exercises quadruped rock backs with distraction from strap Reps/Minutes x 10 reps Comments pt was shown both lateral as well as posterior glides in quadruped position Manual Therapy Treatment Soft Tissue Mobilization cupping technique over the distal quad and ITB Comments pt tolerated this well and could feel a good myofascial release afterwards Manual Techniques posterior capsule mobilization of the left hip Reps/Duration x 5 reps Comments grade III MWM lateral hip distraction with Comments MWM lateral hip distraction with hip IR/ER/Flexion PT-OP-R Modalities Start: 08/20/21 18:50 Freq: Status: Active Protocol: Document 12/29/21 13:50 [facility] (Rec: 12/29/21 18:07 [facility] [id number]) Ultrasound Therapy Treatment left ITB proximal Treatment Duration (minutes) 8 Patient Position Sidelying Applicator Size (cm2) 5 Duty Cycle 100% Intensity Setting (w/cm2) 1.5 PT-OP-T Assessment and Plan Start: 07/22/21 09:32 Freq: Status: Active Protocol: Document 03/02/22 13:00 [facility] (Rec: 03/03/22 11:54 [facility] [id number]) Physical Therapy Assessment Goals 4 Impairment Myofascial tightness of the ITB Mill Set Up Goal (LTG) With manual therapy techniques we are able to improve the fascial mobility of the ITB helping to decrease compression of the bursa and the fibula head at the knee pt still c/o tightness at the knee but has decreased c/o tightness at the proximal attachments. Pt is wearing a compression sleeve now and this is also helping LTG Duration 12 weeks 3 Impairment Pain with walking down a incline or stairs Short Term Goal (STG) Maura is educated on self hip capsule stretches to help with improved hip flexion and ER GOAL MET STG Duration 4 weeks Custodial Goal (LTG) Maura notes a overall reduction of pain with stairs and walking down hill Good progress LTG Duration 12 weeks 2 Impairment hip pain ranging from 2-6/10 depending on activity as well as distal ITB pain at the knee Custodial Goal (LTG) Maura reports overall reduction in her pain symptoms lowering her pain to 1-3/10 with return to PT today after not being seen since her pain levels seem intermittent depending on activity LTG Duration 12 weeks 1 Impairment Decreased hip ROM most significantly into flexion and ER, pt is unable to sit cross legged. Mill Set Up Goal (LTG) Maura notes more comfort with sitting cross legged and shows improvements with her hip ROM into ER and flexion No change Assessment Summary Assessment Maura returns to Physical Therapy today after not being seen since December 24. She has had covid since then and noted during the time she tested positive for covid which was 10 days she did not experience any hip pain. Her pain and tightness have since then returned. She continues to work on her stretching routing as well as walking. She does get some relief with manual therapy technique for myofascial release of the anterior quads and ITB as well as with hip mobilizations. Her hip seems to flare up with active hip flexion activities . She is tight and guarded today in her quad and ITB. She will consult with Orthopedics later this week for further work up. She would like to continue PT Physical Therapy Plan Frequency and Duration Frequency of Treatment 2x/Week Duration of treatment (weeks) 12 Plan of Care Start Date 03/02/22 Plan of Care End Date 05/04/22 Therapeutic Interventions Therapeutic Interventions Home Exercise Program,Joint Mobilizations,Manual Therapy, Patient/Caregiver Education, Sensory Integration,Soft Tissue Mobilization, Therapeutic Exercises Modalities Electric Stimulation Next Visit Focus/Plan Next Note Type Treatment Note Next Visit Plan Continue working on manual therapy techniques for hip mobility, review self mobilization techniques in quadruped, assess how Maura did with the cupping.
--- NOTE | 2022-03-02 14:30 | PT.OPPOC ---
Physical, Occupational & Speech Therapy At [facility] Current Diagnoses Pain in left hip (03/02/22) Visit Care Team Role Provider Type Syed Perez MD Family Provider Physician Primary Care Provider Specialty: Internal Medicine Address: [address] [place] [address], [address], [place], [address] Email: [email or web address] Jose Luis Esquivel MD Attending Provider Physician Referring Provider Specialty: Orthopedics Orthopedic Surgery [facility] Address: [address] [place] [address], [id number] Email: Plan Of Care PT-OP-T Assessment and Plan Start: 07/22/21 09:32 Freq: Status: Active Protocol: Document 03/02/22 13:00 [facility] (Rec: 03/03/22 11:54 [facility] [id number]) Physical Therapy Assessment Goals 4 Impairment Myofascial tightness of the ITB Property Investor Goal (LTG) With manual therapy techniques we are able to improve the fascial mobility of the ITB helping to decrease compression of the bursa and the fibula head at the knee pt still c/o tightness at the knee but has decreased c/o tightness at the proximal attachments. Pt is wearing a compression sleeve now and this is also helping LTG Duration 12 weeks 3 Impairment Pain with walking down a incline or stairs Short Term Goal (STG) Maura is educated on self hip capsule stretches to help with improved hip flexion and ER GOAL MET STG Duration 4 weeks Property Investor Goal (LTG) Maura notes a overall reduction of pain with stairs and walking down hill Good progress LTG Duration 12 weeks 2 Impairment hip pain ranging from 2-6/10 depending on activity as well as distal ITB pain at the knee Property Investor Goal (LTG) Maura reports overall reduction in her pain symptoms lowering her pain to 1-3/10 with return to PT today after not being seen since December her pain levels seem intermittent depending on activity LTG Duration 12 weeks 1 Impairment Decreased hip ROM most significantly into flexion and ER, pt is unable to sit cross legged. Property Investor Goal (LTG) Maura notes more comfort with sitting cross legged and shows improvements with her hip ROM into ER and flexion No change Assessment Summary Assessment Maura returns to Physical Therapy today after not being seen since December 24. She has had covid since then and noted during the time she tested positive for covid which was 10 days she did not experience any hip pain. Her pain and tightness have since then returned. She continues to work on her stretching routing as well as walking. She does get some relief with manual therapy technique for myofascial release of the anterior quads and ITB as well as with hip mobilizations. Her hip seems to flare up with active hip flexion activities . She is tight and guarded today in her quad and ITB. She will consult with Orthopedics later this week for further work up. She would like to continue PT Physical Therapy Plan Frequency and Duration Frequency of Treatment 2x/Week Duration of treatment (weeks) 12 Plan of Care Start Date 03/02/22 Plan of Care End Date 05/04/22 Therapeutic Interventions Therapeutic Interventions Home Exercise Program,Joint Mobilizations,Manual Therapy, Patient/Caregiver Education, Sensory Integration,Soft Tissue Mobilization, Therapeutic Exercises Modalities Electric Stimulation Next Visit Focus/Plan Next Note Type Treatment Note Next Visit Plan Continue working on manual therapy techniques for hip mobility, review self mobilization techniques in quadruped, assess how Maura did with the cupping. Plan of Care Dates Plan of Care Start Date 03/02/22 Plan of Care End Date 05/04/22 Electronically Signed by: Norah Yu, PT 03/03/22 [id number] If you are in agreement with this Plan of Care, please return a signed and dated copy. I have reviewed this Plan of Care and certify that the skilled therapy services above are required to meet the patient?s needs. Physician Signature Date Printed Name and Credentials Clinical Instructor Signature Printed Name and Credentials
--- NOTE | 2022-03-02 14:30 | PT.OPPN ---
Current Diagnoses Pain in left hip (03/02/22) Physical Therapy Progress Note PT-OP-A Visit Information Start: 07/22/21 09:32 Freq: Status: Active Protocol: Document 03/02/22 13:00 [facility] (Rec: 03/02/22 14:10 [facility] [id number]) Out-Patient Physical Therapy Visit Information Visit Information Visit Type Progress Note Visit Start Time 13:00 Visit Stop Time 13:45 Total Visit Minutes 45 Visit Number 18 PT-OP-B Current Condition Start: 07/22/21 09:32 Freq: Status: Active Protocol: Document 07/22/21 11:20 [facility] (Rec: 07/22/21 12:11 [facility] [id number]) Current Condition History of Current Condition Onset Date slowly progressing since last course of PT in 2020 Current Complaints left hip pain decreased ROM and flare after certain activities alia ER History of Current Condition pt notes it has been a year since her last PT, she has been doing yoga and all her stretches, the left hip continues to be chronic and it continues to flare for no reason. She was diagnosed with bursitis and moderate arthritis, the pain seems to be primarily ITB both at the knee and at the hip attachments. She has burning pain at both of the ITB tendon attachments. Her left hip is her more dominant hip. She reports the pain comes on after specific activities and can range from 2-3/10 to 6/10 pain. She reports being limited with hip ER specifically. Treatment Goals Patient/Caregiver Goals Pt would like to gain as much ROM as she can and would like exercises and ideas for home that she can do to help her hip ROM and decrease her pain Prior Functional Status Baseline Function- ADL's Independent Baseline Function- Mobility Independent Current Functional Impairments (Reported) Functional Limitations- Mobility/Gait limited with hip mobility into hip ER, unable to sit crosslegged. Flare up after certain activities such as walking down hill and pain will rolling in bed to her back PT-OP-C Subjective Start: 07/22/21 09:32 Freq: Status: Active Protocol: Document 03/02/22 13:00 [facility] (Rec: 03/02/22 14:10 [facility] [id number]) OP-PT Subjective Patient Comments Patient Comments pt notes she had covid over Thanksgiving she did not have hip pain during covid . 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 She had to get a EKG and chest extra and saw Dr tolbert and was put on hydrolyzene. She has been using the super feet insoles and managing her symptoms. She did get a knee brace and it has been helping. The thing that really aggravates her hip is the leg lifting like in marching PT-OP-F Manual Assessment Start: 07/22/21 09:32 Freq: Status: Active Protocol: Document 07/22/21 11:20 [facility] (Rec: 07/29/21 14:08 [facility] [id number]) Manual Assessments Soft Tissue Assessment Soft Tissue Mobility Assessment tightness of the ITB both distallty and proximally quad tightness left iliopsoas tightness left Joint Mobility Assessment Joint Mobility Assessment Decreased posterior and lateral glide of the left hip PT-OP-J Posture/Palpation/Skin Start: 07/22/21 09:32 Freq: Status: Active Protocol: Document 07/22/21 11:20 [facility] (Rec: 07/29/21 09:43 [facility] [id number]) Palpation Assessment Location left hip Palpation Location LEFT ITB both proximal and distal attachments Palpation Findings Soft Tissue Tightness,Muscle Guarding,Tenderness PT-OP-K Range of Motion Start: 07/22/21 09:32 Freq: Status: Active Protocol: Document 07/22/21 11:20 [facility] (Rec: 07/29/21 14:14 [facility] [id number]) Hip Goniometric Range of Motion Hip Measured in Degrees Left Hip ROM WFL No Testing Position Supine Flexion w/Knee Flexed 110 Straight Leg Raise 55 External Rotation 5 Hip ROM Limitations Hip ROM Limitations Soft Tissue Tightness Comments limited in hip ER and hip flexion and hip extension due to iliopsoas tightness, + aldo test on the left PT-OP-T Assessment and Plan Start: 07/22/21 09:32 Freq: Status: Active Protocol: Document 03/02/22 13:00 [facility] (Rec: 03/03/22 11:54 [facility] [id number]) Physical Therapy Assessment Goals 4 Impairment Myofascial tightness of the ITB Mcc Goal (LTG) With manual therapy techniques we are able to improve the fascial mobility of the ITB helping to decrease compression of the bursa and the fibula head at the knee pt still c/o tightness at the knee but has decreased c/o tightness at the proximal attachments. Pt is wearing a compression sleeve now and this is also helping LTG Duration 12 weeks 3 Impairment Pain with walking down a incline or stairs Short Term Goal (STG) Maura is educated on self hip capsule stretches to help with improved hip flexion and ER GOAL MET STG Duration 4 weeks Mcc Goal (LTG) Maura notes a overall reduction of pain with stairs and walking down hill Good progress LTG Duration 12 weeks 2 Impairment hip pain ranging from 2-6/10 depending on activity as well as distal ITB pain at the knee Mcc Goal (LTG) Maura reports overall reduction in her pain symptoms lowering her pain to 1-3/10 with return to PT today after not being seen since her pain levels seem intermittent depending on activity LTG Duration 12 weeks 1 Impairment Decreased hip ROM most significantly into flexion and ER, pt is unable to sit cross legged. Taper/Finisher Goal (LTG) Maura notes more comfort with sitting cross legged and shows improvements with her hip ROM into ER and flexion No change Assessment Summary Assessment Maura returns to Physical Therapy today after not being seen since December 24. She has had covid since then and noted during the time she tested positive for covid which was 10 days she did not experience any hip pain. Her pain and tightness have since then returned. She continues to work on her stretching routing as well as walking. She does get some relief with manual therapy technique for myofascial release of the anterior quads and ITB as well as with hip mobilizations. Her hip seems to flare up with active hip flexion activities . She is tight and guarded today in her quad and ITB. She will consult with Orthopedics later this week for further work up. She would like to continue PT Physical Therapy Plan Frequency and Duration Frequency of Treatment 2x/Week Duration of treatment (weeks) 12 Plan of Care Start Date 03/02/22 Plan of Care End Date 05/04/22 Therapeutic Interventions Therapeutic Interventions Home Exercise Program,Joint Mobilizations,Manual Therapy, Patient/Caregiver Education, Sensory Integration,Soft Tissue Mobilization, Therapeutic Exercises Modalities Electric Stimulation Next Visit Focus/Plan Next Note Type Treatment Note Next Visit Plan Continue working on manual therapy techniques for hip mobility, review self mobilization techniques in quadruped, assess how Maura did with the cupping.
--- NOTE | 2022-03-04 18:25 | PT.OTN ---
Current Diagnoses Pain in left hip (03/04/22) Physical Therapy Treatment Note PT-OP-A Visit Information Start: 07/22/21 09:32 Freq: Status: Active Protocol: Document 03/04/22 14:40 [facility] (Rec: 03/04/22 15:17 [facility] [id number]) Out-Patient Physical Therapy Visit Information Visit Information Visit Type Treatment Note Visit Start Time 14:35 Visit Stop Time 15:15 Total Visit Minutes 40 Visit Number 19 PT-OP-B Current Condition Start: 07/22/21 09:32 Freq: Status: Active Protocol: Document 07/22/21 11:20 [facility] (Rec: 07/22/21 12:11 [facility] [id number]) Current Condition History of Current Condition Onset Date slowly progressing since last course of PT in 2020 Current Complaints left hip pain decreased ROM and flare after certain activities alia ER History of Current Condition pt notes it has been a year since her last PT, she has been doing yoga and all her stretches, the left hip continues to be chronic and it continues to flare for no reason. She was diagnosed with bursitis and moderate arthritis, the pain seems to be primarily ITB both at the knee and at the hip attachments. She has burning pain at both of the ITB tendon attachments. Her left hip is her more dominant hip. She reports the pain comes on after specific activities and can range from 2-3/10 to 6/10 pain. She reports being limited with hip ER specifically. Treatment Goals Patient/Caregiver Goals Pt would like to gain as much ROM as she can and would like exercises and ideas for home that she can do to help her hip ROM and decrease her pain Prior Functional Status Baseline Function- ADL's Independent Baseline Function- Mobility Independent Current Functional Impairments (Reported) Functional Limitations- Mobility/Gait limited with hip mobility into hip ER, unable to sit crosslegged. Flare up after certain activities such as walking down hill and pain will rolling in bed to her back PT-OP-C Subjective Start: 07/22/21 09:32 Freq: Status: Active Protocol: Document 03/04/22 14:30 [facility] (Rec: 03/04/22 18:25 [facility] [id number]) OP-PT Subjective Patient Comments Patient Comments Maura notes she tolerated the cupping well PT-OP-F Manual Assessment Start: 07/22/21 09:32 Freq: Status: Active Protocol: Document 07/22/21 11:20 [facility] (Rec: 07/29/21 14:08 [facility] [id number]) Manual Assessments Soft Tissue Assessment Soft Tissue Mobility Assessment tightness of the ITB both distallty and proximally quad tightness left iliopsoas tightness left Joint Mobility Assessment Joint Mobility Assessment Decreased posterior and lateral glide of the left hip PT-OP-J Posture/Palpation/Skin Start: 07/22/21 09:32 Freq: Status: Active Protocol: Document 07/22/21 11:20 [facility] (Rec: 07/29/21 09:43 [facility] [id number]) Palpation Assessment Location left hip Palpation Location LEFT ITB both proximal and distal attachments Palpation Findings Soft Tissue Tightness,Muscle Guarding,Tenderness PT-OP-K Range of Motion Start: 07/22/21 09:32 Freq: Status: Active Protocol: Document 07/22/21 11:20 [facility] (Rec: 07/29/21 14:14 [facility] [id number]) Hip Goniometric Range of Motion Hip Left Hip ROM WFL No Testing Position Supine Flexion w/Knee Flexed 110 Straight Leg Raise 55 External Rotation 5 Hip ROM Limitations Hip ROM Limitations Soft Tissue Tightness Comments limited in hip ER and hip flexion and hip extension due to iliopsoas tightness, + aldo test on the left PT-OP-Q Treatments Start: 07/22/21 09:32 Freq: Status: Active Protocol: Document 03/04/22 18:12 [facility] (Rec: 03/04/22 18:24 [facility] [id number]) Manual Therapy Treatment Soft Tissue Mobilization cupping technique over the distal quad and ITB Comments pt tolerated this well and could feel a good myofascial release afterwards Manual Techniques posterior capsule mobilization of the left hip Reps/Duration x 5 reps Comments grade III MWM lateral hip distraction with Comments MWM lateral hip distraction with hip IR/ER/Flexion PT-OP-R Modalities Start: 08/20/21 18:50 Freq: Status: Active Protocol: Document 03/04/22 18:12 [facility] (Rec: 03/04/22 18:24 [facility] [id number]) Ultrasound Therapy Treatment left ITB proximal Treatment Duration (minutes) 8 Patient Position Sidelying Applicator Size (cm2) 5 Duty Cycle 100% Intensity Setting (w/cm2) 1.5 PT-OP-T Assessment and Plan Start: 07/22/21 09:32 Freq: Status: Active Protocol: Document 03/04/22 18:12 [facility] (Rec: 03/04/22 18:24 [facility] [id number]) Physical Therapy Assessment Assessment Summary Assessment Maura tolerated the cupping myofascial technque well last visit, it was done again today as well as ultrasound prior. She tolerated this well and could feel good release of tightness Physical Therapy Plan Frequency and Duration Frequency of Treatment 2x/Week Duration of treatment (weeks) 12 Plan of Care Start Date 03/02/22 Plan of Care End Date 05/04/22 Therapeutic Interventions Therapeutic Interventions Home Exercise Program,Joint Mobilizations,Manual Therapy, Patient/Caregiver Education, Sensory Integration,Soft Tissue Mobilization, Therapeutic Exercises Modalities Electric Stimulation Next Visit Focus/Plan Next Note Type Treatment Note Next Visit Plan Continue working on manual therapy techniques for hip mobility, review self mobilization techniques in quadruped, assess how Maura did with the cupping.
--- NOTE | 2022-03-09 18:24 | PT.OTN ---
Current Diagnoses Pain in left hip (03/09/22) Physical Therapy Treatment Note PT-OP-A Visit Information Start: 07/22/21 09:32 Freq: Status: Active Protocol: Document 03/09/22 13:00 [facility] OF [facility] (Rec: 03/09/22 18:20 ON [facility] OF [facility] [id number]) Out-Patient Physical Therapy Visit Information Visit Information Visit Type Treatment Note Visit Start Time 13:00 Visit Stop Time 13:45 Total Visit Minutes 45 Visit Number 20 PT-OP-B Current Condition Start: 07/22/21 09:32 Freq: Status: Active Protocol: Document 07/22/21 11:20 [facility] (Rec: 07/22/21 12:11 [facility] [id number]) Current Condition History of Current Condition Onset Date slowly progressing since last course of PT in 2020 Current Complaints left hip pain decreased ROM and flare after certain activities alia ER History of Current Condition pt notes it has been a year since her last PT, she has been doing yoga and all her stretches, the left hip continues to be chronic and it continues to flare for no reason. She was diagnosed with bursitis and moderate arthritis, the pain seems to be primarily ITB both at the knee and at the hip attachments. She has burning pain at both of the ITB tendon attachments. Her left hip is her more dominant hip. She reports the pain comes on after specific activities and can range from 2-3/10 to 6/10 pain. She reports being limited with hip ER specifically. Treatment Goals Patient/Caregiver Goals Pt would like to gain as much ROM as she can and would like exercises and ideas for home that she can do to help her hip ROM and decrease her pain Prior Functional Status Baseline Function- ADL's Independent Baseline Function- Mobility Independent Current Functional Impairments (Reported) Functional Limitations- Mobility/Gait limited with hip mobility into hip ER, unable to sit crosslegged. Flare up after certain activities such as walking down hill and pain will rolling in bed to her back PT-OP-C Subjective Start: 07/22/21 09:32 Freq: Status: Active Protocol: Document 03/09/22 13:00 [facility] OF [facility] (Rec: 03/09/22 13:32 [facility] [id number]) OP-PT Subjective Patient Comments Patient Comments Claudette notes her pain is around a 1/10 today in her hip but any hip flexion bothers her hip Patient Reported Progress Same PT-OP-F Manual Assessment Start: 07/22/21 09:32 Freq: Status: Active Protocol: Document 07/22/21 11:20 [facility] (Rec: 07/29/21 14:08 [facility] OF [facility] [id number]) Manual Assessments Soft Tissue Assessment Soft Tissue Mobility Assessment tightness of the ITB both distallty and proximally quad tightness left iliopsoas tightness left Joint Mobility Assessment Joint Mobility Assessment Decreased posterior and lateral glide of the left hip PT-OP-J Posture/Palpation/Skin Start: 07/22/21 09:32 Freq: Status: Active Protocol: Document 07/22/21 11:20 [facility] (Rec: 07/29/21 09:43 [facility] [id number]) Palpation Assessment Location left hip Palpation Location LEFT ITB both proximal and distal attachments Palpation Findings Soft Tissue Tightness,Muscle Guarding,Tenderness PT-OP-K Range of Motion Start: 07/22/21 09:32 Freq: Status: Active Protocol: Document 07/22/21 11:20 [facility] (Rec: 07/29/21 14:14 [facility] [id number]) Hip Goniometric Range of Motion Hip Left Hip ROM WFL No Testing Position Supine Flexion w/Knee Flexed 110 Straight Leg Raise 55 External Rotation 5 Hip ROM Limitations Hip ROM Limitations Soft Tissue Tightness Comments limited in hip ER and hip flexion and hip extension due to iliopsoas tightness, + aldo test on the left PT-OP-Q Treatments Start: 07/22/21 09:32 Freq: Status: Active Protocol: Document 03/09/22 18:15 [facility] (Rec: 03/09/22 18:20 [facility] [id number]) Cardio Equipment Recumbent Elliptical (Biodex) Duration (Minutes) 5 Bicycle (Upright) Duration (Minutes) 5 Resistance 7 Other seat all the way lowered Manual Therapy Treatment Soft Tissue Mobilization gusha MFR over the lateral ITB Comments good tolerance for MFR Self-Care/Home Management Treatment Education Patient Education Home Exercise Program,Joint Protection,Pain Management PT-OP-R Modalities Start: 08/20/21 18:50 Freq: Status: Active Protocol: Document 03/09/22 13:00 [facility] (Rec: 03/09/22 18:20 [facility] [id number]) Ultrasound Therapy Treatment left ITB proximal Treatment Duration (minutes) 8 Patient Position Sidelying Applicator Size (cm2) 5 Duty Cycle 100% Intensity Setting (w/cm2) 1.5 PT-OP-T Assessment and Plan Start: 07/22/21 09:32 Freq: Status: Active Protocol: Document 03/09/22 13:00 [facility] (Rec: 03/09/22 18:22 [facility] LICENSE OF [facility] [id number]) Physical Therapy Assessment Assessment Summary Assessment Maura was shown the upright bike as well as the recumbant bike as options for hip ROM and cross training from walking. She could feel some reduction in tightness following. Hip flexion continues to be the motion that aggravates her the most. She has a ortho appt tomorrow so see if she can get any further ideas. Pt has one additional visit scheduled in PT Physical Therapy Plan Frequency and Duration Frequency of Treatment 2x/Week Duration of treatment (weeks) 12 Plan of Care Start Date 03/02/22 Plan of Care End Date 05/04/22 Therapeutic Interventions Therapeutic Interventions Home Exercise Program,Joint Mobilizations,Manual Therapy, Patient/Caregiver Education, Sensory Integration,Soft Tissue Mobilization, Therapeutic Exercises Modalities Electric Stimulation Next Visit Focus/Plan Next Note Type Treatment Note Next Visit Plan Continue working on manual therapy techniques for hip mobility, review self mobilization techniques in quadruped, assess how Maura did with the cupping.
--- NOTE | 2022-03-11 13:57 | PT.OTN ---
Current Diagnoses Pain in left hip (03/11/22) Physical Therapy Treatment Note PT-OP-A Visit Information Start: 07/22/21 09:32 Freq: Status: Active Protocol: Document 03/11/22 13:00 [facility] (Rec: 03/11/22 13:52 [facility] [id number]) Out-Patient Physical Therapy Visit Information Visit Information Visit Type Treatment Note Visit Start Time 13:05 Visit Stop Time 13:45 Total Visit Minutes 40 Visit Number 21 PT-OP-B Current Condition Start: 07/22/21 09:32 Freq: Status: Active Protocol: Document 07/22/21 11:20 [facility] (Rec: 07/22/21 12:11 [facility] [id number]) Current Condition History of Current Condition Onset Date slowly progressing since last course of PT in 2020 Current Complaints left hip pain decreased ROM and flare after certain activities alia ER History of Current Condition pt notes it has been a year since her last PT, she has been doing yoga and all her stretches, the left hip continues to be chronic and it continues to flare for no reason. She was diagnosed with bursitis and moderate arthritis, the pain seems to be primarily ITB both at the knee and at the hip attachments. She has burning pain at both of the ITB tendon attachments. Her left hip is her more dominant hip. She reports the pain comes on after specific activities and can range from 2-3/10 to 6/10 pain. She reports being limited with hip ER specifically. Treatment Goals Patient/Caregiver Goals Pt would like to gain as much ROM as she can and would like exercises and ideas for home that she can do to help her hip ROM and decrease her pain Prior Functional Status Baseline Function- ADL's Independent Baseline Function- Mobility Independent Current Functional Impairments (Reported) Functional Limitations- Mobility/Gait limited with hip mobility into hip ER, unable to sit crosslegged. Flare up after certain activities such as walking down hill and pain will rolling in bed to her back PT-OP-C Subjective Start: 07/22/21 09:32 Freq: Status: Active Protocol: Document 03/11/22 13:00 [facility] (Rec: 03/11/22 13:52 [facility] [id number]) OP-PT Subjective Patient Comments Patient Comments Maura had an ortho consult and was told she could have a interarticular cortisone injection as a possibility for her hip. She did feel the bike was helpful and also the cupping PT-OP-F Manual Assessment Start: 07/22/21 09:32 Freq: Status: Active Protocol: Document 07/22/21 11:20 [facility] (Rec: 07/29/21 14:08 [facility] [id number]) Manual Assessments Soft Tissue Assessment Soft Tissue Mobility Assessment tightness of the ITB both distallty and proximally quad tightness left iliopsoas tightness left Joint Mobility Assessment Joint Mobility Assessment Decreased posterior and lateral glide of the left hip PT-OP-J Posture/Palpation/Skin Start: 07/22/21 09:32 Freq: Status: Active Protocol: Document 07/22/21 11:20 [facility] (Rec: 07/29/21 09:43 [facility] [id number]) Palpation Assessment Location left hip Palpation Location LEFT ITB both proximal and distal attachments Palpation Findings Soft Tissue Tightness,Muscle Guarding,Tenderness PT-OP-K Range of Motion Start: 07/22/21 09:32 Freq: Status: Active Protocol: Document 07/22/21 11:20 [facility] (Rec: 07/29/21 14:14 [facility] [id number]) Hip Goniometric Range of Motion Hip Left Hip ROM WFL No Testing Position Supine Flexion w/Knee Flexed 110 Straight Leg Raise 55 External Rotation 5 Hip ROM Limitations Hip ROM Limitations Soft Tissue Tightness Comments limited in hip ER and hip flexion and hip extension due to iliopsoas tightness, + aldo test on the left PT-OP-Q Treatments Start: 07/22/21 09:32 Freq: Status: Active Protocol: Document 03/11/22 13:00 [facility] (Rec: 03/11/22 13:56 [facility] [id number]) Cardio Equipment Bicycle (Upright) Duration (Minutes) 6 Resistance 8 [address]at Position all the way down Manual Therapy Treatment Soft Tissue Mobilization cupping technique over the distal quad and ITB Mobilization Type Myofascial Release Comments pt tolerated this well and could feel a good myofascial release afterwards PT-OP-R Modalities Start: 08/20/21 18:50 Freq: Status: Active Protocol: Document 03/11/22 13:00 [facility] (Rec: 03/11/22 13:56 [facility] [id number]) Ultrasound Therapy Treatment left ITB proximal Treatment Duration (minutes) 8 Patient Position Sidelying Applicator Size (cm2) 5 Duty Cycle 100% Intensity Setting (w/cm2) 1.5 PT-OP-T Assessment and Plan Start: 07/22/21 09:32 Freq: Status: Active Protocol: Document 03/11/22 13:00 [facility] (Rec: 03/11/22 13:56 [facility] [id number]) Physical Therapy Assessment Assessment Summary Assessment Maura has responded well to cupping for the myofascial tissue as well as the upright bike for hip ROM. Physical Therapy Plan Frequency and Duration Frequency of Treatment 2x/Week Duration of treatment (weeks) 12 Plan of Care Start Date 03/02/22 Plan of Care End Date 05/04/22 Therapeutic Interventions Therapeutic Interventions Home Exercise Program,Joint Mobilizations,Manual Therapy, Patient/Caregiver Education, Sensory Integration,Soft Tissue Mobilization, Therapeutic Exercises Modalities Electric Stimulation
--- NOTE | 2022-06-02 10:20 | PT.OPDS ---
Current Diagnoses Pain in left hip (03/11/22) Visit Care Team Role Provider Type Syed Perez MD Family Provider Physician Primary Care Provider Specialty: Internal Medicine Address: [address] [place] [address], [address], [place], [address] Email: [email or web address] Jose Luis Esquivel MD Attending Provider Physician Referring Provider Specialty: Orthopedics Orthopedic Surgery [facility] Address: [address] [place] [address], [id number] Email: [email or web address] Visit Number Visit Number 21 Discharge Summary PT-OP-B Current Condition Start: 07/22/21 09:32 Freq: Status: Active Protocol: Document 07/22/21 11:20 [facility] (Rec: 07/22/21 12:11 [facility] [id number]) Current Condition History of Current Condition Onset Date slowly progressing since last course of PT in 2020 Current Complaints left hip pain decreased ROM and flare after certain activities alia ER History of Current Condition pt notes it has been a year since her last PT, she has been doing yoga and all her stretches, the left hip continues to be chronic and it continues to flare for no reason. She was diagnosed with bursitis and moderate arthritis, the pain seems to be primarily ITB both at the knee and at the hip attachments. She has burning pain at both of the ITB tendon attachments. Her left hip is her more dominant hip. She reports the pain comes on after specific activities and can range from 2-3/10 to 6/10 pain. She reports being limited with hip ER specifically. Treatment Goals Patient/Caregiver Goals Pt would like to gain as much ROM as she can and would like exercises and ideas for home that she can do to help her hip ROM and decrease her pain Prior Functional Status Baseline Function- ADL's Independent Baseline Function- Mobility Independent Current Functional Impairments (Reported) Functional Limitations- Mobility/Gait limited with hip mobility into hip ER, unable to sit crosslegged. Flare up after certain activities such as walking down hill and pain will rolling in bed to her back PT-OP-C Subjective Start: 07/22/21 09:32 Freq: Status: Active Protocol: Document 03/11/22 13:00 [facility] (Rec: 03/11/22 13:52 [facility] [id number]) OP-PT Subjective Patient Comments Patient Comments Maura had an ortho consult and was told she could have a interarticular cortisone injection as a possibility for her hip. She did feel the bike was helpful and also the cupping PT-OP-F Manual Assessment Start: 07/22/21 09:32 Freq: Status: Active Protocol: Document 07/22/21 11:20 [facility] (Rec: 07/29/21 14:08 [facility] [id number]) Manual Assessments Soft Tissue Assessment Soft Tissue Mobility Assessment tightness of the ITB both distallty and proximally quad tightness left iliopsoas tightness left Joint Mobility Assessment Joint Mobility Assessment Decreased posterior and lateral glide of the left hip PT-OP-J Posture/Palpation/Skin Start: 07/22/21 09:32 Freq: Status: Active Protocol: Document 07/22/21 11:20 [facility] (Rec: 07/29/21 09:43 [facility] [id number]) Palpation Assessment Location left hip Palpation Location LEFT ITB both proximal and distal attachments Palpation Findings Soft Tissue Tightness,Muscle Guarding,Tenderness PT-OP-K Range of Motion Start: 07/22/21 09:32 Freq: Status: Active Protocol: Document 07/22/21 11:20 [facility] (Rec: 07/29/21 14:14 [facility] [id number]) Hip Goniometric Range of Motion Hip Left Hip ROM WFL No Testing Position Supine Flexion w/Knee Flexed 110 Straight Leg Raise 55 External Rotation 5 Hip ROM Limitations Hip ROM Limitations Soft Tissue Tightness Comments limited in hip ER and hip flexion and hip extension due to iliopsoas tightness, + aldo test on the left PT-OP-T Assessment and Plan Start: 07/22/21 09:32 Freq: Status: Active Protocol: Document 06/02/22 10:19 [facility] (Rec: 06/02/22 10:20 [facility] [id number]) Physical Therapy Assessment Assessment Summary Assessment Maura has met the end of her plan of care with PT visits. She has been given a HEP and was able to begin the bike as well for hip ROM. She will be DC from PT at this time Physical Therapy Plan Discharge Physical Therapy Discharge Reasons No Longer Attending PT
== END 2022-06-03 10:27 | disposition home or self-care (01) ==
LOC: PHYS 13:00
PROVIDERS: Family Provider Student in an Organized Health Care Education/Training Program; PCP Student in an Organized Health Care Education/Training Program; Referring Provider Physical Medicine & Rehabilitation Pain Medicine; Visit Provider Physical Medicine & Rehabilitation Pain Medicine
DX: M25.552 Pain in left hip (principal)
CPT/HCPCS: 97035; 97110; 97116; 97140; 97161; 97535

== ENCOUNTER → 2022-06-14 16:50 | Outpatient (CLI) | payer OTHER, SELFPAY ==
[2022-06-16 14:51] LABS: Fecal Immunochemical Test Negative (Negative)
== END ==
PROVIDERS: Family Provider Student in an Organized Health Care Education/Training Program; PCP Student in an Organized Health Care Education/Training Program; Referring Provider Student in an Organized Health Care Education/Training Program; Visit Provider Student in an Organized Health Care Education/Training Program
DX: Z12.11 Encounter for screening for malignant neoplasm of colon (principal)
CPT/HCPCS: 82274

== ENCOUNTER → 2022-08-27 11:43 | Outpatient (CLI) | payer OTHER, SELFPAY ==
--- NOTE | 2022-08-27 | DI.MRI.S_ITS ---
PROCEDURE: MR KNEE LT WO CON INDICATIONS: Iliotibial band syndrome, left leg TECHNIQUE: Noncontrast sagittal PD fast spin echo and T2 fast spin echo with fat saturation, sagittal 3-D FLASH with fat saturation; coronal T1 spin echo and PD fast spin echo with fat saturation, and axial PD fast spin echo with fat saturation through the knee. COMPARISON: None. FINDINGS: Image quality: Excellent. Menisci: The medial and lateral menisci demonstrate normal morphology and internal signal. The meniscal root ligaments appear intact. Cruciate ligaments: The anterior and posterior cruciate ligaments appear intact. Medial structures: The medial collateral ligament appears intact. Visualized portions of the pes anserinus tendons appear normal. No abnormal bursal fluid. Lateral structures: The lateral collateral ligament, long and short heads of the biceps femoris tendon appear intact. The popliteus tendon appears normal. Iliotibial band appears normal. Anterior structures: The quadriceps and patellar tendons appear intact. Patellar alignment is normal. No femoral trochlear dysplasia or ventral trochlear prominence. No edema in the infrapatellar fat pad. Bones and cartilage: No bone marrow contusions or fractures. Mild articular cartilage loss diffusely overlies the weight-bearing aspects of the medial femoral condyle and medial tibial plateau. Joint space: There is physiologic knee joint fluid. Trace Maguire's cyst. Normal appearing synovial plicae are incidentally noted. IMPRESSION: 1. No internal derangement. 2. Mild medial compartment articular cartilage loss. Dictated by: Orion Hawk M.D. on 08/27/2022 at 16:01 Approved by: Orion Hwak M.D. on 08/27/2022 at 16:02
== END ==
PROVIDERS: Family Provider Student in an Organized Health Care Education/Training Program; PCP Nurse Practitioner; Referring Provider Orthopaedic Surgery; Visit Provider Orthopaedic Surgery
DX: M76.32 Iliotibial band syndrome, left leg (principal)
CPT/HCPCS: 73721

== ENCOUNTER → 2022-10-19 09:22 | Outpatient (CLI) | payer OTHER, SELFPAY ==
[2022-10-19 10:19] LABS: Hematocrit 39.9 % (36-46); Hemoglobin 13.4 g/dL (12.0-16.0)
[2022-10-19 10:41] LABS: Alanine Aminotransferase 25 IU/L (<35); Albumin 4.5 g/dL (3.5-5.0); Albumin Globulin Ratio 1.6 (1.0-2.8); Alkaline Phosphatase 58 U/L (38-126); Aspartate Aminotransferase 27 IU/L (14-36); BUN Creatinine Ratio 20.3 (6-22); Bilirubin Total 0.8 mg/dL (0.2-1.3); Blood Urea Nitrogen 14 mg/dL (7-17); Calcium 9.3 mg/dL (8.4-10.2); Carbon Dioxide 27 mmol/L (22-32); Chloride 101 mmol/L (98-107); Cholesterol 193 mg/dL (140-199); Estimated Glomerular Filt Rate > 60 mL/min (>60); Globulin 2.8 g/dL (1.7-4.1); Glucose 121 mg/dL (80-110); HDL Cholesterol 61 mg/dL (40-60); HEMOLYSIS < 15 (0-50); LDL Cholesterol Calculated 96 mg/dL (<100); Potassium 4.4 mmol/L (3.4-5.1); Sodium 137 mmol/L (137-145); Total Protein 7.3 g/dL (6.3-8.2); Triglycerides 179 mg/dL (35-150)
[2022-10-19 13:33] LABS: Appearance Urine UA CLEAR; Bilirubin Urine UA NEGATIVE (NEGATIVE); Color Urine UA YELLOW; Glucose Urine UA NEGATIVE (Negative); Ketones Urine UA NEGATIVE (NEGATIVE); Leukocyte Esterase Urine UA 1+ (NEGATIVE); Nitrite Urine UA NEGATIVE (Negative); Occult Blood Urine UA TRACE-INTACT (Negative); Protein Urine UA NEGATIVE (Negative); Specific Gravity Urine UA <=1.005 (1.000-1.035); Urobilinogen Urine UA 0.2 E.U./dL (0.2)
[2022-10-19 13:35] LABS: pH Urine UA 6.5 (4.5-8.0)
[2022-10-19 13:45] LABS: Bacteria Urine Occasional (0-1); Culture Indicated Urine Specimen Cultured; RBC Urine None Seen (0-5/HPF); Squamous Epithelial Cell Urine 1-5 /HPF (0-5/HPF); WBC Urine 1-5/HPF (0-5/HPF)
[2022-10-19 15:09] LABS: Creatinine Urine Random 26.9 mg/dL; Protein (Total) Urine Random 30 mg/dL (0-12); Protein Creatinine Ratio Urine 1.11 GRAM/24H
== END ==
PROVIDERS: Family Provider Student in an Organized Health Care Education/Training Program; PCP Nurse Practitioner; Referring Provider Student in an Organized Health Care Education/Training Program; Visit Provider Student in an Organized Health Care Education/Training Program
DX: E03.9 Hypothyroidism, unspecified (principal); D64.9 Anemia, unspecified; N05.9 Unspecified nephritic syndrome with unspecified morphologic changes; N30.00 Acute cystitis without hematuria; R80.9 Proteinuria, unspecified; E78.00 Pure hypercholesterolemia, unspecified; I10 Essential (primary) hypertension; Q79.60 Ehlers-Danlos syndrome, unspecified
CPT/HCPCS: 36415; 80053; 80061; 81001; 82570; 84156; 84443; 85014; 85018; 87086

== ENCOUNTER → 2022-11-11 16:19 | Outpatient (CLI) | payer OTHER, SELFPAY ==
[2022-11-11 19:50] LABS: Creatinine Urine Random 15.1 mg/dL; Protein (Total) Urine Random 18 mg/dL (0-12); Protein Creatinine Ratio Urine 1.19 GRAM/24H
== END ==
PROVIDERS: Family Provider Student in an Organized Health Care Education/Training Program; PCP Nurse Practitioner; Referring Provider Student in an Organized Health Care Education/Training Program; Visit Provider Student in an Organized Health Care Education/Training Program
DX: R80.9 Proteinuria, unspecified (principal)
CPT/HCPCS: 82570; 84156

== ENCOUNTER 2022-12-14 14:15 | Outpatient (RCR) | payer OTHER, SELFPAY ==
--- NOTE | 2022-06-30 14:30 | PT.OIE ---
Current Diagnoses Other chronic pain (06/30/22) Pain in left hip (06/30/22) Pain in left knee (06/30/22) Iliotibial band syndrome, left leg (06/30/22) Past Medical History (Last Updated 01/21/22 @ 12:47 by Syed Perez MD) Allergic rhinitis (~1969) Atrophic vulvovaginitis Chickenpox (~1969) Catherine-Danlos syndrome (1958) Endometriosis (~1971) Fibroids (~1989) Heavy menstrual period (1971) Hyperlipemia (2009) Hypertension (2008) Hypothyroidism (1993) Infertility (Unknown) Joint pain (~1989) Kidney disease (Unknown) Measles (~1959) Mumps (~1959) Painful menstrual periods (Unknown) Proteinuria (1971) Past Surgical History (Last Updated 08/29/17 @ 17:05 by Felicia Perry LPN) History of total abdominal hysterectomy and bilateral salpingo-oophorectomy (2002) Hx of laparoscopy (~1988) Visit Care Team Role Provider Type Syed Perez MD Attending Provider Physician Family Provider Primary Care Provider Referring Provider Specialty: Internal Medicine Address: [address] [place] [address], [address], [facility] Email: [email or web address] Physical Therapy Initial Evaluation PT-OP-A Visit Information Start: 06/30/22 11:21 Freq: Status: Active Protocol: Document 06/30/22 11:15 [facility] (Rec: 06/30/22 13:07 [facility] [id number]) Out-Patient Physical Therapy Visit Information Visit Information Visit Type Initial Evaluation Visit Start Time 11:15 Visit Stop Time 12:00 Total Visit Minutes 45 Visit Number 1 Evaluation Information Evaluation Date 06/30/22 PT-OP-B Current Condition Start: 06/30/22 11:21 Freq: Status: Active Protocol: Document 06/30/22 11:15 AM[facility] (Rec: 06/30/22 12:03 AM[facility] [id number]) Current Condition History of Current Condition Onset Date May 07 Current Complaints Lt sided hip pain History of Current Condition pt had a cortisone injection but it did not not stop her pain , but now she has pain into her groin and into her hip on the left side but she thinks it reduced the swelling in the joint capsule and she feels that now her hip is mobilie in the joint more She did get good ROM after the injection, she is doing the hip mobilizations with the belt and this help. She has stopped doind pigeon pose as she feels that maybe it is pushing on the hip She still feels that anerior hip with marches, she still feels the lateral knee with walking She is wearing a sleeve on her left knee and that helps and she is wearing her custom orthotics SHe feels if she had a MRI it may help her decide if she would benefit from prolotherapy. Treatment Goals Patient/Caregiver Goals her goals are to work on strength and stability PT-OP-C Subjective Start: 06/30/22 13:07 Freq: Status: Active Protocol: Document 06/30/22 11:15 [facility] (Rec: 07/06/22 08:37 [facility] [id number]) Patient Questionnaires Lower Extremity Functional Scale LEFS Score 44 LEFS Impairment 40 to 59% Impaired (Score 32- 47) OP-PT Pain Assessment Location left anterior and lateral hip Pain Location Details pain ranges from 2-5/10 and it varies with movement Scale Used Numeric (0 - 10) Comments Pain Comments due to pain and stiffness pt has quite a bit of difficulty with activies that include hip flexion including stairs, getting into and out of a bath , squatting and moderate difficulty with walking PT-OP-F Manual Assessment Start: 06/30/22 13:07 Freq: Status: Active Protocol: Document 06/30/22 11:15 AM[facility] (Rec: 07/06/22 08:34 [facility] [id number]) Manual Assessments Soft Tissue Assessment Soft Tissue Mobility Assessment myofascial tightness in the ITB, adductors, iliopsoas, quad L>R anterior hip. Joint Mobility Assessment Joint Mobility Assessment decreased anterior joint mobility of the left hip for ER, pt is also limited in hip flexion and hip abduction on the left PT-OP-G Mobility & Gait Start: 06/30/22 13:07 Freq: Status: Active Protocol: Document 06/30/22 11:15 AM[facility] (Rec: 07/06/22 08:34 [facility] [id number]) OP Mobility Evaluation Functional Movements Other Functional Movements pt is limited with standing hip flexion as this is tight and restricted and causes pain , pt is limited with her walking distance due to tightness and pain following PT-OP-J Posture/Palpation/Skin Start: 06/30/22 13:07 Freq: Status: Active Protocol: Document 06/30/22 11:15 AM[facility] (Rec: 07/06/22 08:34 [facility] [id number]) Palpation Assessment Location left anterior hip Palpation Findings Soft Tissue Tightness,Spasm, Muscle Guarding,Tenderness left lateral hip Palpation Findings Soft Tissue Tightness,Spasm, Muscle Guarding,Tenderness Palpation Details ITB proximal attachments PT-OP-K Range of Motion Start: 06/30/22 13:07 Freq: Status: Active Protocol: Document 06/30/22 11:15 AM[facility] (Rec: 07/06/22 08:34 [facility] [id number]) Hip Goniometric Range of Motion Hip Left Hip ROM WFL No Testing Position Supine Flexion w/Knee Flexed 100 Straight Leg Raise 55 Extension 0 Abduction 10 External Rotation 8 Hip ROM Limitations Hip ROM Limitations Soft Tissue Tightness,Pain Comments OA in the left hip joint PT-OP-M Strength Start: 06/30/22 13:07 Freq: Status: Active Protocol: Document 06/30/22 11:15 AM[facility] (Rec: 07/06/22 08:34 [facility] [id number]) Hip Strength Hip Manual Muscle Testing Left Flexion (L2) 3- Fair- Abduction 3- Fair- External Rotation 3- Fair- PT-OP-Q Treatments Start: 06/30/22 13:07 Freq: Status: Active Protocol: Document 06/30/22 11:15 AM[facility] (Rec: 07/01/22 15:09 [facility] [id number]) Manual Therapy Treatment Soft Tissue Mobilization MFR for the quads and ITB Body Location left ITB and quads Mobilization Type Myofascial Release Intensity/Depth Moderate Body Position Supine Comments pt tolerates well and notes improved motion of her hip following Joint Mobilizations MWM with lateral hip distraction Joint left hip Direction lateral Body Position Supine Comments MWM with lateral hip distraction and moving into hip ER MWM with belt hip distraction Joint left hip Direction distraction Body Position Hooklying Comments hip distraction using manual therapy belt working into hip flexion PT-OP-T Assessment and Plan Start: 06/30/22 13:07 Freq: Status: Active Protocol: Document 06/30/22 11:15 AMH (Rec: 07/01/22 15:21 [facility] [id number]) Physical Therapy Assessment Goals 4 Impairment tightness of the ITB, quadriceps, adductors, and iliopsoas L hip Pen[facility]iary Goal (LTG) Decrease soft tissue tightness withmanual therapy techniques and stretches. Pt is able to ride the stationary bike on a regular basis LTG Duration 12 weeks 3 Impairment Decreased L hip ROM into hip ER, abduction, flexion Short Term Goal (STG) specific stretches to lengthen the ITB, adductors, and iliopsoas are reviewed and pt is IND with a HEP STG Duration 3 weeks Penitentiary Goal (LTG) Maura has a goal of being able to sit on the floor cross legged as well as be able to squat with decreased symptoms LTG Duration 12 weeks 2 Impairment pt has difficulty with stairs Classifications Officer Cc/Cm Goal (LTG) With improved hip ROM stairs are improved and not as difficult LTG Duration 12 weeks 1 Impairment left lateral and anterior hip pain rated 2-5/10 depending on activity and can vary with movement Classifications Officer Cc/Cm Goal (LTG) Maura reports a overall reduction in hip pain and she is able to return to her walking program due to decreased pain LTG Duration 12 weeks Assessment Summary Assessment Maura is a 61 year old female referred to PT for continued left sided hip pain. She recently underwent a cortisone injection and she feels this did not help and her symptoms are worse at this time than prior to the injection. Maura has a history of Catherine danlos she feels her symptoms in her hip are more muscular skeletal versus osteoarthritis . 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 Her symptoms began in 2019 after she had been walking a lot of hills. Pt has gotten good relief of symptoms in the past with manual therapy techniques. At this point Maura's chief complaint of pain is with bending and squatting activities due to lack of hip flexion and hip ER. She has difficulty with her walking routine. I have suggested a stationary bike for hip ROM and Maura is looking into this for home. With today's exam she is tighter in the left hip than she was 6 months ago. She lacks ROM in all planes with a marked reduction with hip abduction and hip ER. I reviewed her HEP and she is compliant with her home exercises and stretches. OA has most likely progressed. I did start manual therapy techniques which really seem to help Maura today. She is a good candidate for PT. Physical Therapy Plan Frequency and Duration Frequency of Treatment 1x/Week Duration of treatment (weeks) 12 Plan of Care Start Date 07/01/22 Plan of Care End Date 08/26/22 Therapeutic Interventions Therapeutic Interventions Home Exercise Program,Joint Mobilizations,Manual Therapy, Patient/Caregiver Education, Self-Care/Home Management,Soft Tissue Mobilization Modalities Cold Pack/Ice Massage, Ultrasound Next Visit Focus/Plan Next Note Type Treatment Note Next Visit Plan continue working on MFR techniques to help decompress the left hip joint, iliopsoas stretches in aldo test position, MWM with mobilization belt for hip distraction and lateral joint glide.
--- NOTE | 2022-06-30 14:30 | PT.OPPOC ---
Physical, Occupational & Speech Therapy At [facility] Current Diagnoses Other chronic pain (06/30/22) Pain in left hip (06/30/22) Pain in left knee (06/30/22) Iliotibial band syndrome, left leg (06/30/22) Visit Care Team Role Provider Type Syed Perez MD Attending Provider Physician Family Provider Primary Care Provider Referring Provider Specialty: Internal Medicine Address: [address] [place] [address], [address], [address] Email: [email or web address] Plan Of Care PT-OP-T Assessment and Plan Start: 06/30/22 13:07 Freq: Status: Active Protocol: Document 06/30/22 11:15 AM[facility] (Rec: 07/01/22 15:21 [facility] [id number]) Physical Therapy Assessment Goals 4 Impairment tightness of the ITB, quadriceps, adductors, and iliopsoas L hip Usp Goal (LTG) Decrease soft tissue tightness with manual therapy techniques and stretches. Pt is able to ride the stationary bike on a regular basis LTG Duration 12 weeks 3 Impairment Decreased L hip ROM into hip ER, abduction, flexion Short Term Goal (STG) specific stretches to lengthen the ITB, adductors, and iliopsoas are reviewed and pt is IND with a HEP STG Duration 3 weeks [employer] Leader Goal (LTG) Maura has a goal of being able to sit on the floor cross legged as well as be able to squat with decreased symptoms LTG Duration 12 weeks 2 Impairment pt has difficulty with stairs [employer] Leader Goal (LTG) With improved hip ROM stairs are improved and not as difficult LTG Duration 12 weeks 1 Impairment left lateral and anterior hip pain rated 2-5/10 depending on activity and can vary with movement Usp Goal (LTG) Maura reports a overall reduction in hip pain and she is able to return to her walking program due to decreased pain LTG Duration 12 weeks Assessment Summary Assessment Maura is a 61 year old female referred to PT for continued left sided hip pain. She recently underwent a cortisone injection and she feels this did not help and her symptoms are worse at this time than prior to the injection. Maura has a history of Catherine danlos she feels her symptoms in her hip are more muscular skeletal versus osteoarthritis . 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 Her symptoms began in 2019 after she had been walking a lot of hills. Pt has gotten good relief of symptoms in the past with manual therapy techniques. At this point Maura's chief complaint of pain is with bending and squatting activities due to lack of hip flexion and hip ER. She has difficulty with her walking routine. I have suggested a stationary bike for hip ROM and Maura is looking into this for home. With today's exam she is tighter in the left hip than she was 6 months ago. She lacks ROM in all planes with a marked reduction with hip abduction and hip ER. I reviewed her HEP and she is compliant with her home exercises and stretches. OA has most likely progressed. I did start manual therapy techniques which really seem to help Maura today. She is a good candidate for PT. Physical Therapy Plan Frequency and Duration Frequency of Treatment 1x/Week Duration of treatment (weeks) 12 Plan of Care Start Date 07/01/22 Plan of Care End Date 08/26/22 Therapeutic Interventions Therapeutic Interventions Home Exercise Program,Joint Mobilizations,Manual Therapy, Patient/Caregiver Education, Self-Care/Home Management,Soft Tissue Mobilization Modalities Cold Pack/Ice Massage, Ultrasound Next Visit Focus/Plan Next Note Type Treatment Note Begin bike for warm up Next Visit Plan continue working on MFR techniques to help decompress the left hip joint, iliopsoas stretches in aldo test position, MWM with mobilization belt for hip distraction and lateral joint glide. Plan of Care Dates Plan of Care Start Date 07/01/22 Plan of Care End Date 08/26/22 Electronically Signed by: Norah Yu, PT 07/06/22 0849 If you are in agreement with this Plan of Care, please return a signed and dated copy. I have reviewed this Plan of Care and certify that the skilled therapy services above are required to meet the patient?s needs. Physician Signature Date Printed Name and Credentials Clinical Instructor Signature Printed Name and Credentials
--- NOTE | 2022-07-06 08:52 | PT.OPPOC ---
Physical, Occupational & Speech Therapy At [facility] Current Diagnoses Other chronic pain (06/30/22) Pain in left hip (06/30/22) Pain in left knee (06/30/22) Iliotibial band syndrome, left leg (06/30/22) Visit Care Team Role Provider Type Syed Perez MD Attending Provider Physician Family Provider Primary Care Provider Referring Provider Specialty: Internal Medicine Address: [address] [place] [address], [address], [place], [address] Email: [email or web address] Plan Of Care PT-OP-T Assessment and Plan Start: 06/30/22 13:07 Freq: Status: Active Protocol: Document 06/30/22 11:15 [facility] (Rec: 07/01/22 15:21 [facility] [id number]) Physical Therapy Assessment Goals 4 Impairment tightness of the ITB, quadriceps, adductors, and iliopsoas L hip Nursing Home Goal (LTG) Decrease soft tissue tightness with manual therapy techniques and stretches. Pt is able to ride the stationary bike on a regular basis LTG Duration 12 weeks 3 Impairment Decreased L hip ROM into hip ER, abduction, flexion Short Term Goal (STG) specific stretches to lengthen the ITB, adductors, and iliopsoas are reviewed and pt is IND with a HEP STG Duration 3 weeks Automobile Bumper Straightener Goal (LTG) Maura has a goal of being able to sit on the floor cross legged as well as be able to squat with decreased symptoms LTG Duration 12 weeks 2 Impairment pt has difficulty with stairs Automobile Bumper Straightener Goal (LTG) With improved hip ROM stairs are improved and not as difficult LTG Duration 12 weeks 1 Impairment left lateral and anterior hip pain rated 2-5/10 depending on activity and can vary with movement Nursing Home Goal (LTG) Maura reports a overall reduction in hip pain and she is able to return to her walking program due to decreased pain LTG Duration 12 weeks Assessment Summary Assessment Maura is a 61 year old female referred to PT for continued left sided hip pain. She recently underwent a cortisone injection and she feels this did not help and her symptoms are worse at this time than prior to the injection. Maura has a history of Catherine danlos she feels her symptoms in her hip are more muscular skeletal versus osteoarthritis . 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 Her symptoms began in 2019 after she had been walking a lot of hills. Pt has gotten good relief of symptoms in the past with manual therapy techniques. At this point Maura's chief complaint of pain is with bending and squatting activities due to lack of hip flexion and hip ER. She has difficulty with her walking routine. I have suggested a stationary bike for hip ROM and Maura is looking into this for home. With today's exam she is tighter in the left hip than she was 6 months ago. She lacks ROM in all planes with a marked reduction with hip abduction and hip ER. I reviewed her HEP and she is compliant with her home exercises and stretches. OA has most likely progressed. I did start manual therapy techniques which really seem to help Maura today. She is a good candidate for PT. Physical Therapy Plan Frequency and Duration Frequency of Treatment 1x/Week Duration of treatment (weeks) 12 Plan of Care Start Date 06/30/22 Plan of Care End Date 08/26/22 Therapeutic Interventions Therapeutic Interventions Home Exercise Program,Joint Mobilizations,Manual Therapy, Patient/Caregiver Education, Self-Care/Home Management,Soft Tissue Mobilization Modalities Cold Pack/Ice Massage, Ultrasound Next Visit Focus/Plan Next Note Type Treatment Note Next Visit Plan Warm up on upright bike for hip ROM, continue working on MFR techniques to help decompress the left hip joint, iliopsoas stretches in aldo test position, MWM with mobilization belt for hip distraction and lateral joint glide. Plan of Care Dates Plan of Care Start Date 06/30/22 Plan of Care End Date 08/26/22 Electronically Signed by: Norah Yu, PT 07/06/22 0852 If you are in agreement with this Plan of Care, please return a signed and dated copy. I have reviewed this Plan of Care and certify that the skilled therapy services above are required to meet the patient?s needs. Physician Signature Date Printed Name and Credentials Clinical Instructor Signature Printed Name and Credentials
--- NOTE | 2022-07-13 11:39 | PT.OTN ---
Current Diagnoses Other chronic pain (07/13/22) Pain in left hip (07/13/22) Pain in left knee (07/13/22) Iliotibial band syndrome, left leg (07/13/22) Physical Therapy Treatment Note PT-OP-A Visit Information Start: 06/30/22 11:21 Freq: Status: Active Protocol: Document 07/13/22 09:45 [facility] (Rec: 07/13/22 10:33 [facility] [id number]) Out-Patient Physical Therapy Visit Information Visit Information Visit Type Treatment Note Visit Start Time 09:45 Visit Stop Time 10:30 Total Visit Minutes 45 Visit Number 2 PT-OP-B Current Condition Start: 06/30/22 11:21 Freq: Status: Active Protocol: Document 06/30/22 11:15 [facility] (Rec: 06/30/22 12:03 [facility] [id number]) Current Condition History of Current Condition Onset Date May 07 Current Complaints Lt sided hip pain History of Current Condition pt had a cortisone injection but it did not not stop her pain , but now she has pain into her groin and into her hip on the left side but she thinks it reduced the swelling in the joint capsule and she feels that now her hip is mobilie in the joint more She did get good ROM after the injection, she is doing the hip mobilizations with the belt and this help. She has stopped doind pigeon pose as she feels that maybe it is pushing on the hip She still feels that anerior hip with marches, she still feels the lateral knee with walking She is wearing a sleeve on her left knee and that helps and she is wearing her custom orthotics SHe feels if she had a MRI it may help her decide if she would benefit from prolotherapy. Treatment Goals Patient/Caregiver Goals her goals are to work on strength and stability PT-OP-C Subjective Start: 06/30/22 13:07 Freq: Status: Active Protocol: Document 07/13/22 09:45 [facility] (Rec: 07/13/22 10:33 [facility] [id number]) OP-PT Subjective Patient Comments Patient Comments pt is seeing Dr Thacker later this week and would like to try to get a MRI to see if there is enough cartlidge in her hip capsule for prolotherapy to work. PT-OP-F Manual Assessment Start: 06/30/22 13:07 Freq: Status: Active Protocol: Document 06/30/22 11:15 [facility] (Rec: 07/06/22 08:34 [facility] [id number]) Manual Assessments Soft Tissue Assessment Soft Tissue Mobility Assessment myofascial tightness in the ITB, adductors, iliopsoas, quad L>R anterior hip. Joint Mobility Assessment Joint Mobility Assessment decreased anterior joint mobility of the left hip for ER, pt is also limited in hip flexion and hip abduction on the left PT-OP-G Mobility & Gait Start: 06/30/22 13:07 Freq: Status: Active Protocol: Document 06/30/22 11:15 [facility] (Rec: 07/06/22 08:34 [facility] [id number]) OP Mobility Evaluation Functional Movements Other Functional Movements pt is limited with standing hip flexion as this is tight and restricted and causes pain , pt is limited with her walking distance due to tightness and pain following PT-OP-J Posture/Palpation/Skin Start: 06/30/22 13:07 Freq: Status: Active Protocol: Document 06/30/22 11:15 [facility] (Rec: 07/06/22 08:34 [facility] [id number]) Palpation Assessment Location left anterior hip Palpation Findings Soft Tissue Tightness,Spasm, Muscle Guarding,Tenderness left lateral hip Palpation Findings Soft Tissue Tightness,Spasm, Muscle Guarding,Tenderness Palpation Details ITB proximal attachments PT-OP-K Range of Motion Start: 06/30/22 13:07 Freq: Status: Active Protocol: Document 06/30/22 11:15 [facility] (Rec: 07/06/22 08:34 [facility] [id number]) Hip Goniometric Range of Motion Hip Left Hip ROM WFL No Testing Position Supine Flexion w/Knee Flexed 100 Straight Leg Raise 55 Extension 0 Abduction 10 External Rotation 8 Hip ROM Limitations Hip ROM Limitations Soft Tissue Tightness,Pain Comments OA in the left hip joint PT-OP-M Strength Start: 06/30/22 13:07 Freq: Status: Active Protocol: Document 06/30/22 11:15 [facility] (Rec: 07/06/22 08:34 [facility] [id number]) Hip Strength Hip Manual Muscle Testing Left Flexion (L2) 3- Fair- Abduction 3- Fair- External Rotation 3- Fair- PT-OP-Q Treatments Start: 06/30/22 13:07 Freq: Status: Active Protocol: Document 07/13/22 09:45 [facility] (Rec: 07/13/22 10:33 [facility] [id number]) Cardio Equipment Bicycle (Upright) Duration (Minutes) 6 Resistance 3 Seat Position 2 Therapeutic Exercises Supine Exercises supine ITB stretch with strap Reps/Minutes hold 1-2 min piriformis stretch Reps/Minutes hold 1-2 min single knee to chest Reps/Minutes hold 1-2 min Manual Therapy Treatment Soft Tissue Mobilization MFR for the quads and ITB Body Location left ITB and quads Mobilization Type Myofascial Release Intensity/Depth Moderate Body Position Supine Comments pt tolerates well and notes improved motion of her hip following Joint Mobilizations MWM with lateral hip distraction Joint left hip Direction lateral Body Position Supine Comments MWM with lateral hip distraction and moving into hip ER MWM with belt hip distraction Joint left hip Direction distraction Body Position Hooklying Comments hip distraction using manual therapy belt working into hip flexion PT-OP-T Assessment and Plan Start: 06/30/22 13:07 Freq: Status: Active Protocol: Document 07/13/22 09:45 [facility] (Rec: 07/13/22 11:36 [facility] [id number]) Physical Therapy Assessment Assessment Summary Assessment Maura was doing better today with ROM into abduction and hip flexion than last visit. I did have her on the upright bike x 6 min and this really helped to mobilize her hip first. At the end of treatment she was more mobile into her hip ER as well. Physical Therapy Plan Frequency and Duration Frequency of Treatment 1x/Week Duration of treatment (weeks) 12 Plan of Care Start Date 06/30/22 Plan of Care End Date 08/26/22 Therapeutic Interventions Therapeutic Interventions Home Exercise Program,Joint Mobilizations,Manual Therapy, Patient/Caregiver Education, Self-Care/Home Management,Soft Tissue Mobilization Modalities Cold Pack/Ice Massage, Ultrasound Next Visit Focus/Plan Next Note Type Treatment Note Next Visit Plan Warm up on upright bike for hip ROM, continue working on MFR techniques to help decompress the left hip joint, iliopsoas stretches in aldo test position, MWM with mobilization belt for hip distraction and lateral joint glide.
--- NOTE | 2022-07-16 14:15 | PT.OTN ---
Current Diagnoses Other chronic pain (07/16/22) Pain in left hip (07/16/22) Pain in left knee (07/16/22) Iliotibial band syndrome, left leg (07/16/22) Physical Therapy Treatment Note PT-OP-A Visit Information Start: 06/30/22 11:21 Freq: Status: Active Protocol: Document 07/16/22 13:34 SP (Rec: 07/16/22 14:26 SP [id number]) Out-Patient Physical Therapy Visit Information Visit Information Visit Type Treatment Note Visit Start Time 13:34 Visit Stop Time 14:15 Total Visit Minutes 41 Visit Number 3 Evaluation Information Evaluation Date 06/30/22 PT-OP-B Current Condition Start: 06/30/22 11:21 Freq: Status: Active Protocol: Document 06/30/22 11:15 [facility] (Rec: 06/30/22 12:03 [facility] [id number]) Current Condition History of Current Condition Onset Date May 07 Current Complaints Lt sided hip pain History of Current Condition pt had a cortisone injection but it did not not stop her pain , but now she has pain into her groin and into her hip on the left side but she thinks it reduced the swelling in the joint capsule and she feels that now her hip is mobilie in the joint more She did get good ROM after the injection, she is doing the hip mobilizations with the belt and this help. She has stopped doind pigeon pose as she feels that maybe it is pushing on the hip She still feels that anerior hip with marches, she still feels the lateral knee with walking She is wearing a sleeve on her left knee and that helps and she is wearing her custom orthotics SHe feels if she had a MRI it may help her decide if she would benefit from prolotherapy. Treatment Goals Patient/Caregiver Goals her goals are to work on strength and stability PT-OP-C Subjective Start: 06/30/22 13:07 Freq: Status: Active Protocol: Document 07/16/22 13:34 SP (Rec: 07/16/22 14:26 SP [id number]) OP-PT Subjective Patient Comments Patient Comments Pt reports felt pretty good after last tx. Uses yoga Densie videos online for support. Looking for upright bike for home. Pt stated saw Dr Thacker and thinks easily has 5 yr for R hip and ordering MRI for R knee and see ITB and assess pain gets lateral knee and why Lateral condyle pain. PT-OP-F Manual Assessment Start: 06/30/22 13:07 Freq: Status: Active Protocol: Document 06/30/22 11:15 [facility] (Rec: 07/06/22 08:34 [facility] [id number]) Manual Assessments Soft Tissue Assessment Soft Tissue Mobility Assessment myofascial tightness in the ITB, adductors, iliopsoas, quad L>R anterior hip. Joint Mobility Assessment Joint Mobility Assessment decreased anterior joint mobility of the left hip for ER, pt is also limited in hip flexion and hip abduction on the left PT-OP-G Mobility & Gait Start: 06/30/22 13:07 Freq: Status: Active Protocol: Document 06/30/22 11:15 [facility] (Rec: 07/06/22 08:34 [facility] [id number]) OP Mobility Evaluation Functional Movements Other Functional Movements pt is limited with standing hip flexion as this is tight and restricted and causes pain , pt is limited with her walking distance due to tightness and pain following PT-OP-J Posture/Palpation/Skin Start: 06/30/22 13:07 Freq: Status: Active Protocol: Document 06/30/22 11:15 [facility] (Rec: 07/06/22 08:34 [facility] [id number]) Palpation Assessment Location left anterior hip Palpation Findings Soft Tissue Tightness,Spasm, Muscle Guarding,Tenderness left lateral hip Palpation Findings Soft Tissue Tightness,Spasm, Muscle Guarding,Tenderness Palpation Details ITB proximal attachments PT-OP-K Range of Motion Start: 06/30/22 13:07 Freq: Status: Active Protocol: Document 06/30/22 11:15 [facility] (Rec: 07/06/22 08:34 [facility] [id number]) Hip Goniometric Range of Motion Hip Left Hip ROM WFL No Testing Position Supine Flexion w/Knee Flexed 100 Straight Leg Raise 55 Extension 0 Abduction 10 External Rotation 8 Hip ROM Limitations Hip ROM Limitations Soft Tissue Tightness,Pain Comments OA in the left hip joint PT-OP-M Strength Start: 06/30/22 13:07 Freq: Status: Active Protocol: Document 06/30/22 11:15 [facility] (Rec: 07/06/22 08:34 [facility] [id number]) Hip Strength Hip Manual Muscle Testing Left Flexion (L2) 3- Fair- Abduction 3- Fair- External Rotation 3- Fair- PT-OP-Q Treatments Start: 06/30/22 13:07 Freq: Status: Active Protocol: Document 07/16/22 13:34 SP (Rec: 07/16/22 14:26 SP [id number]) Cardio Equipment Bicycle (Upright) Duration (Minutes) 6 Resistance 3>5 Seat Position 2 Other ed proper fit/height, 60 RPMs Therapeutic Exercises Supine Exercises Paulie Stretch Supine Exercise Name add next tx. piriformis stretch Reps/Minutes hold 1-2 min single knee to chest Reps/Minutes hold 1-2 min Manual Therapy Treatment Soft Tissue Mobilization MFR for the quads and ITB Body Location left ITB and quads Mobilization Type Myofascial Release Intensity/Depth Moderate Body Position Supine Comments pt tolerates well and notes improved motion of her hip following Joint Mobilizations MWM with lateral hip distraction Joint left hip Direction posterolateral Body Position Supine Comments MWM with lateral hip distraction and moving into hip IR, ed and performance of self. MWM with belt hip distraction Joint left hip Direction distraction Body Position Hooklying Comments hip distraction using manual therapy belt working into hip flexion PT-OP-T Assessment and Plan Start: 06/30/22 13:07 Freq: Status: Active Protocol: Document 07/16/22 13:34 SP (Rec: 07/16/22 14:26 SP [id number]) Physical Therapy Assessment Goals 4 Impairment tightness of the ITB, quadriceps, adductors, and iliopsoas L hip Detention Goal (LTG) Decrease soft tissue tightness withmanual therapy techniques and stretches. Pt is able to ride the stationary bike on a regular basis LTG Duration 12 weeks 3 Impairment Decreased L hip ROM into hip ER, abduction, flexion Short Term Goal (STG) specific stretches to lengthen the ITB, adductors, and iliopsoas are reviewed and pt is IND with a HEP STG Duration 3 weeks Detention Goal (LTG) Maura has a goal of being able to sit on the floor cross legged as well as be able to squat with decreased symptoms LTG Duration 12 weeks 2 Impairment pt has difficulty with stairs Quality Intern Goal (LTG) With improved hip ROM stairs are improved and not as difficult LTG Duration 12 weeks 1 Impairment left lateral and anterior hip pain rated 2-5/10 depending on activity and can vary with movement Quality Intern Goal (LTG) Maura reports a overall reduction in hip pain and she is able to return to her walking program due to decreased pain LTG Duration 12 weeks Assessment Summary Assessment Pt good feedback response to manual and self application performance after ed, provided HO for self at home. Pt reports more hip mobility leaving. Physical Therapy Plan Frequency and Duration Frequency of Treatment 1x/Week Duration of treatment (weeks) 12 Plan of Care Start Date 06/30/22 Plan of Care End Date 08/26/22 Therapeutic Interventions Therapeutic Interventions Home Exercise Program,Joint Mobilizations,Manual Therapy, Patient/Caregiver Education, Self-Care/Home Management,Soft Tissue Mobilization Modalities Cold Pack/Ice Massage, Ultrasound Next Visit Focus/Plan Next Note Type Treatment Note Next Visit Plan Warm up on upright bike for hip ROM, continue working on MFR techniques to help decompress the left hip joint, iliopsoas stretches in paulie test position, MWM with mobilization belt for hip distraction and lateral joint glide.
--- NOTE | 2022-07-20 16:47 | PT.OTN ---
Current Diagnoses Other chronic pain (07/20/22) Pain in left hip (07/20/22) Pain in left knee (07/20/22) Iliotibial band syndrome, left leg (07/20/22) Physical Therapy Treatment Note PT-OP-A Visit Information Start: 06/30/22 11:21 Freq: Status: Active Protocol: Document 07/20/22 15:05 [facility] (Rec: 07/20/22 16:02 [facility] [id number]) Out-Patient Physical Therapy Visit Information Visit Information Visit Type Treatment Note Visit Start Time 15:05 Visit Stop Time 15:50 Total Visit Minutes 45 Visit Number 4 Evaluation Information Evaluation Date 06/30/22 PT-OP-B Current Condition Start: 06/30/22 11:21 Freq: Status: Active Protocol: Document 06/30/22 11:15 [facility] (Rec: 06/30/22 12:03 [facility] [id number]) Current Condition History of Current Condition Onset Date May 07 Current Complaints Lt sided hip pain History of Current Condition pt had a cortisone injection but it did not not stop her pain , but now she has pain into her groin and into her hip on the left side but she thinks it reduced the swelling in the joint capsule and she feels that now her hip is mobilie in the joint more She did get good ROM after the injection, she is doing the hip mobilizations with the belt and this help. She has stopped doind pigeon pose as she feels that maybe it is pushing on the hip She still feels that anerior hip with marches, she still feels the lateral knee with walking She is wearing a sleeve on her left knee and that helps and she is wearing her custom orthotics SHe feels if she had a MRI it may help her decide if she would benefit from prolotherapy. Treatment Goals Patient/Caregiver Goals her goals are to work on strength and stability PT-OP-C Subjective Start: 06/30/22 13:07 Freq: Status: Active Protocol: Document 07/20/22 15:05 [facility] (Rec: 07/20/22 16:02 [facility] [id number]) OP-PT Subjective Patient Comments Patient Comments pt will get a MRI for her knee and she is waiting to hear back. Pt also notes her blood pressure medication is no longer working so she will be starting a new blood pressure medication. PT-OP-F Manual Assessment Start: 06/30/22 13:07 Freq: Status: Active Protocol: Document 06/30/22 11:15 [facility] (Rec: 07/06/22 08:34 [facility] [id number]) Manual Assessments Soft Tissue Assessment Soft Tissue Mobility Assessment myofascial tightness in the ITB, adductors, iliopsoas, quad L>R anterior hip. Joint Mobility Assessment Joint Mobility Assessment decreased anterior joint mobility of the left hip for ER, pt is also limited in hip flexion and hip abduction on the left PT-OP-G Mobility & Gait Start: 06/30/22 13:07 Freq: Status: Active Protocol: Document 06/30/22 11:15 [facility] (Rec: 07/06/22 08:34 [facility] [id number]) OP Mobility Evaluation Functional Movements Other Functional Movements pt is limited with standing hip flexion as this is tight and restricted and causes pain , pt is limited with her walking distance due to tightness and pain following PT-OP-J Posture/Palpation/Skin Start: 06/30/22 13:07 Freq: Status: Active Protocol: Document 06/30/22 11:15 [facility] (Rec: 07/06/22 08:34 [facility] [id number]) Palpation Assessment Location left anterior hip Palpation Findings Soft Tissue Tightness,Spasm, Muscle Guarding,Tenderness left lateral hip Palpation Findings Soft Tissue Tightness,Spasm, Muscle Guarding,Tenderness Palpation Details ITB proximal attachments PT-OP-K Range of Motion Start: 06/30/22 13:07 Freq: Status: Active Protocol: Document 06/30/22 11:15 [facility] (Rec: 07/06/22 08:34 [facility] [id number]) Hip Goniometric Range of Motion Hip Left Hip ROM WFL No Testing Position Supine Flexion w/Knee Flexed 100 Straight Leg Raise 55 Extension 0 Abduction 10 External Rotation 8 Hip ROM Limitations Hip ROM Limitations Soft Tissue Tightness,Pain Comments OA in the left hip joint PT-OP-M Strength Start: 06/30/22 13:07 Freq: Status: Active Protocol: Document 06/30/22 11:15 [facility] (Rec: 07/06/22 08:34 [facility] [id number]) Hip Strength Hip Manual Muscle Testing Left Flexion (L2) 3- Fair- Abduction 3- Fair- External Rotation 3- Fair- PT-OP-Q Treatments Start: 06/30/22 13:07 Freq: Status: Active Protocol: Document 07/20/22 15:05 [facility] (Rec: 07/20/22 16:02 [facility] [id number]) Cardio Equipment Bicycle (Upright) Duration (Minutes) 6 Resistance 3>5 Seat Position 2 Other ed proper fit/height, 60 RPMs Manual Therapy Treatment Soft Tissue Mobilization MFR for the quads and ITB Body Location left ITB and quads Mobilization Type Myofascial Release Intensity/Depth Moderate Body Position Supine Comments pt tolerates well and notes improved motion of her hip following Joint Mobilizations MWM with lateral hip distraction Joint left hip Direction posterolateral Body Position Supine Comments MWM with lateral hip distraction and moving into hip IR, ed and performance of self. MWM with belt hip distraction Joint left hip Direction distraction Body Position Hooklying Comments hip distraction using manual therapy belt working into hip flexion PT-OP-T Assessment and Plan Start: 06/30/22 13:07 Freq: Status: Active Protocol: Document 07/20/22 15:05 [facility] (Rec: 07/20/22 16:47 [facility] [id number]) Physical Therapy Assessment Assessment Summary Assessment Maura is doing much better overall and did not demonstrate the tightness in the myofascial tissue that she had been. Pt reports improved hip mobility Physical Therapy Plan Frequency and Duration Frequency of Treatment 1x/Week Duration of treatment (weeks) 12 Plan of Care Start Date 06/30/22 Plan of Care End Date 08/26/22 Next Visit Focus/Plan Next Note Type Treatment Note Next Visit Plan Warm up on upright bike for hip ROM, continue working on MFR techniques to help decompress the left hip joint, iliopsoas stretches in aldo test position, MWM with mobilization belt for hip distraction and lateral joint glide.
--- NOTE | 2022-07-27 11:35 | PT.OTN ---
Current Diagnoses Other chronic pain (07/27/22) Pain in left hip (07/27/22) Pain in left knee (07/27/22) Iliotibial band syndrome, left leg (07/27/22) Physical Therapy Treatment Note PT-OP-A Visit Information Start: 06/30/22 11:21 Freq: Status: Active Protocol: Document 07/27/22 10:50 SP (Rec: 07/27/22 11:38 SP [id number]) Out-Patient Physical Therapy Visit Information Visit Information Visit Type Treatment Note Visit Start Time 10:50 Visit Stop Time 11:35 Total Visit Minutes 45 Visit Number 5 Number of WALLCOVERING HANGER Visits 1 Evaluation Information Evaluation Date 06/30/22 Precautions Precautions Hx: BROOKS, Els Danos, MCAS (Mass Cell Activation Syndrome ) PT-OP-B Current Condition Start: 06/30/22 11:21 Freq: Status: Active Protocol: Document 06/30/22 11:15 [facility] (Rec: 06/30/22 12:03 [facility] [id number]) Current Condition History of Current Condition Onset Date May 07 Current Complaints Lt sided hip pain History of Current Condition pt had a cortisone injection but it did not not stop her pain , but now she has pain into her groin and into her hip on the left side but she thinks it reduced the swelling in the joint capsule and she feels that now her hip is mobilie in the joint more She did get good ROM after the injection, she is doing the hip mobilizations with the belt and this help. She has stopped doind pigeon pose as she feels that maybe it is pushing on the hip She still feels that anerior hip with marches, she still feels the lateral knee with walking She is wearing a sleeve on her left knee and that helps and she is wearing her custom orthotics SHe feels if she had a MRI it may help her decide if she would benefit from prolotherapy. Treatment Goals Patient/Caregiver Goals her goals are to work on strength and stability PT-OP-C Subjective Start: 06/30/22 13:07 Freq: Status: Active Protocol: Document 07/27/22 10:50 SP (Rec: 07/27/22 11:38 SP [id number]) OP-PT Subjective Patient Comments Patient Comments Pt reports HR more tachicardic today approx 119 bpm at arrival, cheeks little flush, N95 donned for safety immunocomprimised. She requested continue warm up on bike which helps with normalizing HR at times. She is having some adjustments in medications. Her L lateral thigh tight maybe from cleaning for company arrival. She has some hives on L thigh and ankle, took some antihistimine for support. PT-OP-F Manual Assessment Start: 06/30/22 13:07 Freq: Status: Active Protocol: Document 06/30/22 11:15 [facility] (Rec: 07/06/22 08:34 [facility] [id number]) Manual Assessments Soft Tissue Assessment Soft Tissue Mobility Assessment myofascial tightness in the ITB, adductors, iliopsoas, quad L>R anterior hip. Joint Mobility Assessment Joint Mobility Assessment decreased anterior joint mobility of the left hip for ER, pt is also limited in hip flexion and hip abduction on the left PT-OP-G Mobility & Gait Start: 06/30/22 13:07 Freq: Status: Active Protocol: Document 06/30/22 11:15 AM[facility] (Rec: 07/06/22 08:34 [facility] [id number]) OP Mobility Evaluation Functional Movements Other Functional Movements pt is limited with standing hip flexion as this is tight and restricted and causes pain , pt is limited with her walking distance due to tightness and pain following PT-OP-J Posture/Palpation/Skin Start: 06/30/22 13:07 Freq: Status: Active Protocol: Document 06/30/22 11:15 [facility] (Rec: 07/06/22 08:34 [facility] [id number]) Palpation Assessment Location left anterior hip Palpation Findings Soft Tissue Tightness,Spasm, Muscle Guarding,Tenderness left lateral hip Palpation Findings Soft Tissue Tightness,Spasm, Muscle Guarding,Tenderness Palpation Details ITB proximal attachments PT-OP-K Range of Motion Start: 06/30/22 13:07 Freq: Status: Active Protocol: Document 06/30/22 11:15 AM[facility] (Rec: 07/06/22 08:34 [facility] [id number]) Hip Goniometric Range of Motion Hip Left Hip ROM WFL No Testing Position Supine Flexion w/Knee Flexed 100 Straight Leg Raise 55 Extension 0 Abduction 10 External Rotation 8 Hip ROM Limitations Hip ROM Limitations Soft Tissue Tightness,Pain Comments OA in the left hip joint PT-OP-M Strength Start: 06/30/22 13:07 Freq: Status: Active Protocol: Document 06/30/22 11:15 AMH (Rec: 07/06/22 08:34 [facility] [id number]) Hip Strength Hip Manual Muscle Testing Left Flexion (L2) 3- Fair- Abduction 3- Fair- External Rotation 3- Fair- PT-OP-Q Treatments Start: 06/30/22 13:07 Freq: Status: Active Protocol: Document 07/27/22 10:50 SP (Rec: 07/27/22 11:38 SP [id number]) Cardio Equipment Bicycle (Upright) Duration (Minutes) 6 Resistance 4 Seat Position 2 Other 119 BPM>98>110 with activity, w/ less thigh tension gd stretch Therapeutic Exercises Supine Exercises Paulie Stretch Supine Exercise Name incorporated with manual today Side left Comments decreased hip extension ROM, tight quad, ITB Standing Exercises band walk Standing Exercise Name added to HEP Side bilateral Resistance TB #1>2>3 (home), YTB in PT similar Reps/Minutes 15 ft x6 laps Comments cued L knee allow flexion and DF with TA and no SB for LB compensat recruit Manual Therapy Treatment Soft Tissue Mobilization MFR for the quads and ITB Body Location left ITB and quads Mobilization Type Cross-Friction,Instrument Assisted,Myofascial Release Intensity/Depth Moderate Body Position Hooklying Comments MFR manual with use cupping, instrument with good tolerance and notes improved motion of her hip. Joint Mobilizations MWM with lateral hip distraction Joint left hip Direction posterolateral Body Position Supine Comments MWM with lateral hip distraction and moving into hip IR, ed and performance of self. MWM with belt hip distraction Joint left hip Direction distraction Body Position Hooklying Comments hip distraction using manual therapy belt working into hip flexion PT-OP-T Assessment and Plan Start: 06/30/22 13:07 Freq: Status: Active Protocol: Document 07/27/22 10:50 SP (Rec: 07/27/22 11:38 SP [id number]) Physical Therapy Assessment Goals 4 Impairment tightness of the ITB, quadriceps, adductors, and iliopsoas L hip Health Teacher Goal (LTG) Decrease soft tissue tightness withmanual therapy techniques and stretches. Pt is able to ride the stationary bike on a regular basis LTG Duration 12 weeks 3 Impairment Decreased L hip ROM into hip ER, abduction, flexion Short Term Goal (STG) specific stretches to lengthen the ITB, adductors, and iliopsoas are reviewed and pt is IND with a HEP STG Duration 3 weeks Health Teacher Goal (LTG) Maura has a goal of being able to sit on the floor cross legged as well as be able to squat with decreased symptoms LTG Duration 12 weeks 2 Impairment pt has difficulty with stairs [facility] Goal (LTG) With improved hip ROM stairs are improved and not as difficult LTG Duration 12 weeks 1 Impairment left lateral and anterior hip pain rated 2-5/10 depending on activity and can vary with movement [facility] Goal (LTG) Maura reports a overall reduction in hip pain and she is able to return to her walking program due to decreased pain LTG Duration 12 weeks Assessment Summary Assessment Pt improved myofascial mobility over lateral L quad, ITB, Vastus Lateralis post manual. She noted increased hip rotation and extension coming to standing. Cues for L knee & hip flexion&DF foot clearance with noted decreased hip hike compensation during added band walk. Physical Therapy Plan Frequency and Duration Frequency of Treatment 1x/Week Duration of treatment (weeks) 12 Plan of Care Start Date 06/30/22 Plan of Care End Date 08/26/22 Therapeutic Interventions Therapeutic Interventions Home Exercise Program,Joint Mobilizations,Manual Therapy, Patient/Caregiver Education, Self-Care/Home Management,Soft Tissue Mobilization Modalities Cold Pack/Ice Massage, Ultrasound Next Visit Focus/Plan Next Note Type Treatment Note Next Visit Plan Check response to added band walk to HEP, warm up on upright bike for hip ROM, continue working on MFR techniques to help decompress the left hip joint, iliopsoas stretches in paulie test position, MWM with mobilization belt for hip distraction and lateral joint glide.
--- NOTE | 2022-08-03 17:11 | PT.OTN ---
Current Diagnoses Other chronic pain (08/03/22) Pain in left hip (08/03/22) Pain in left knee (08/03/22) Iliotibial band syndrome, left leg (08/03/22) Physical Therapy Treatment Note PT-OP-A Visit Information Start: 06/30/22 11:21 Freq: Status: Active Protocol: Document 08/03/22 15:04 AMH (Rec: 08/03/22 16:03 AMH [id number]) Out-Patient Physical Therapy Visit Information Visit Information Visit Type Treatment Note Visit Start Time 15:04 Visit Stop Time 15:45 Total Visit Minutes 41 Visit Number 6 Number of MECHANIC WELDER Visits 0 Evaluation Information Evaluation Date 06/30/22 PT-OP-B Current Condition Start: 06/30/22 11:21 Freq: Status: Active Protocol: Document 06/30/22 11:15 AMH (Rec: 06/30/22 12:03 AMH [id number]) Current Condition History of Current Condition Onset Date May 07 Current Complaints Lt sided hip pain History of Current Condition pt had a cortisone injection but it did not not stop her pain , but now she has pain into her groin and into her hip on the left side but she thinks it reduced the swelling in the joint capsule and she feels that now her hip is mobilie in the joint more She did get good ROM after the injection, she is doing the hip mobilizations with the belt and this help. She has stopped doind pigeon pose as she feels that maybe it is pushing on the hip She still feels that anerior hip with marches, she still feels the lateral knee with walking She is wearing a sleeve on her left knee and that helps and she is wearing her custom orthotics SHe feels if she had a MRI it may help her decide if she would benefit from prolotherapy. Treatment Goals Patient/Caregiver Goals her goals are to work on strength and stability PT-OP-C Subjective Start: 06/30/22 13:07 Freq: Status: Active Protocol: Document 08/03/22 15:04 AMH (Rec: 08/03/22 16:03 AMH [id number]) OP-PT Subjective Patient Comments Patient Comments pt notes she is frustrated as she continues to feel the hip and knee discomfort. 118 BPM on the bike. She notes she has had company her for the last 6 days and she is feeling really tight. PT-OP-F Manual Assessment Start: 06/30/22 13:07 Freq: Status: Active Protocol: Document 06/30/22 11:15 AMH (Rec: 07/06/22 08:34 [facility] [id number]) Manual Assessments Soft Tissue Assessment Soft Tissue Mobility Assessment myofascial tightness in the ITB, adductors, iliopsoas, quad L>R anterior hip. Joint Mobility Assessment Joint Mobility Assessment decreased anterior joint mobility of the left hip for ER, pt is also limited in hip flexion and hip abduction on the left PT-OP-G Mobility & Gait Start: 06/30/22 13:07 Freq: Status: Active Protocol: Document 06/30/22 11:15 AMH (Rec: 07/06/22 08:34 [facility] [id number]) OP Mobility Evaluation Functional Movements Other Functional Movements pt is limited with standing hip flexion as this is tight and restricted and causes pain , pt is limited with her walking distance due to tightness and pain following PT-OP-J Posture/Palpation/Skin Start: 06/30/22 13:07 Freq: Status: Active Protocol: Document 06/30/22 11:15 AMH (Rec: 07/06/22 08:34 [facility] [id number]) Palpation Assessment Location left anterior hip Palpation Findings Soft Tissue Tightness,Spasm, Muscle Guarding,Tenderness left lateral hip Palpation Findings Soft Tissue Tightness,Spasm, Muscle Guarding,Tenderness Palpation Details ITB proximal attachments PT-OP-K Range of Motion Start: 06/30/22 13:07 Freq: Status: Active Protocol: Document 06/30/22 11:15 AMH (Rec: 07/06/22 08:34 [facility] [id number]) Hip Goniometric Range of Motion Hip Left Hip ROM WFL No Testing Position Supine Flexion w/Knee Flexed 100 Straight Leg Raise 55 Extension 0 Abduction 10 External Rotation 8 Hip ROM Limitations Hip ROM Limitations Soft Tissue Tightness,Pain Comments OA in the left hip joint PT-OP-M Strength Start: 06/30/22 13:07 Freq: Status: Active Protocol: Document 06/30/22 11:15 AMH (Rec: 07/06/22 08:34 [facility] [id number]) Hip Strength Hip Manual Muscle Testing Left Flexion (L2) 3- Fair- Abduction 3- Fair- External Rotation 3- Fair- PT-OP-Q Treatments Start: 06/30/22 13:07 Freq: Status: Active Protocol: Document 08/03/22 15:04 [facility] (Rec: 08/03/22 16:03 [facility] [id number]) Cardio Equipment Bicycle (Upright) Duration (Minutes) 6 Resistance 4 Seat Position 2 Other 118 BPM>98>110 with activity, w/ less thigh tension gd stretch Therapeutic Exercises Supine Exercises adductor stretch using strap Supine Exercise Name left leg Reps/Minutes hold 1-2 min as tolerated Paulie Stretch Supine Exercise Name incorporated with manual today Side left Comments decreased hip extension ROM, tight quad, ITB supine ITB stretch with strap Reps/Minutes hold 1-2 min Standing Exercises band walk Standing Exercise Name HEP Manual Therapy Treatment Soft Tissue Mobilization MFR for the quads and ITB Body Location left ITB and quads Mobilization Type Cross-Friction,Instrument Assisted,Myofascial Release Intensity/Depth Moderate Body Position Hooklying Comments MFR manual at both distal and proximal ITB attachment Joint Mobilizations MWM with lateral hip distraction Joint left hip Direction posterolateral Body Position Supine Comments MWM with lateral hip distraction and moving into hip IR, ed and performance of self. MWM with belt hip distraction Joint left hip Direction distraction Body Position Hooklying Comments hip distraction using manual therapy belt working into hip flexion PT-OP-T Assessment and Plan Start: 06/30/22 13:07 Freq: Status: Active Protocol: Document 08/03/22 15:04 [facility] (Rec: 08/03/22 17:08 [facility] [id number]) Physical Therapy Assessment Assessment Summary Assessment Maura was pretty discouraged today but she also hadn't been able to really work on her stretches this past week due to having company the past 6 days. I encouraged her to work on adductor stretching for home with her strap as she was guarded in her adductors today more. She notes when she walks on the docks that are unstable that she will experience more muscle tightening. They stayed 2 nights on their boat at [place] and walked the docks during their time there. She did really well with theraband side steps last visit Physical Therapy Plan Frequency and Duration Frequency of Treatment 1x/Week Duration of treatment (weeks) 12 Plan of Care Start Date 06/30/22 Plan of Care End Date 08/26/22 Therapeutic Interventions Therapeutic Interventions Home Exercise Program,Joint Mobilizations,Manual Therapy, Patient/Caregiver Education, Self-Care/Home Management,Soft Tissue Mobilization Modalities Cold Pack/Ice Massage, Ultrasound Next Visit Focus/Plan Next Note Type Treatment Note Next Visit Plan warm up on upright bike for hip ROM, continue working on MFR techniques to help decompress the left hip joint, iliopsoas stretches in paulie test position, MWM with mobilization belt for hip distraction and lateral joint glide.
--- NOTE | 2022-08-05 15:18 | PT.OTN ---
Current Diagnoses Other chronic pain (08/05/22) Pain in left hip (08/05/22) Pain in left knee (08/05/22) Iliotibial band syndrome, left leg (08/05/22) Physical Therapy Treatment Note PT-OP-A Visit Information Start: 06/30/22 11:21 Freq: Status: Active Protocol: Document 08/05/22 14:32 SP (Rec: 08/05/22 15:50 SP [id number]) Out-Patient Physical Therapy Visit Information Visit Information Visit Type Treatment Note Visit Start Time 14:32 Visit Stop Time 15:18 Total Visit Minutes 46 Visit Number 7 Number of SOCK LINER Visits 1 Evaluation Information Evaluation Date 06/30/22 Precautions Precautions Hx: BROOKS, Els Danos, MCAS (Mass Cell Activation Syndrome ) PT-OP-B Current Condition Start: 06/30/22 11:21 Freq: Status: Active Protocol: Document 06/30/22 11:15 [facility] (Rec: 06/30/22 12:03 AMH [id number]) Current Condition History of Current Condition Onset Date May 07 Current Complaints Lt sided hip pain History of Current Condition pt had a cortisone injection but it did not not stop her pain , but now she has pain into her groin and into her hip on the left side but she thinks it reduced the swelling in the joint capsule and she feels that now her hip is mobilie in the joint more She did get good ROM after the injection, she is doing the hip mobilizations with the belt and this help. She has stopped doind pigeon pose as she feels that maybe it is pushing on the hip She still feels that anerior hip with marches, she still feels the lateral knee with walking She is wearing a sleeve on her left knee and that helps and she is wearing her custom orthotics SHe feels if she had a MRI it may help her decide if she would benefit from prolotherapy. Treatment Goals Patient/Caregiver Goals her goals are to work on strength and stability PT-OP-C Subjective Start: 06/30/22 13:07 Freq: Status: Active Protocol: Document 08/05/22 14:32 SP (Rec: 08/05/22 15:50 SP [id number]) OP-PT Subjective Patient Comments Patient Comments Pt reports hasn't heard back from referral for MRI. Diagnostic hasn't seen an order yet. She states distal L ITB very sore coming in today . SHe showed HEP over years has and performs at home with combination stretching and strengthening learned from PT this encounter. PT-OP-F Manual Assessment Start: 06/30/22 13:07 Freq: Status: Active Protocol: Document 06/30/22 11:15 [facility]H (Rec: 07/06/22 08:34 [facility] [id number]) Manual Assessments Soft Tissue Assessment Soft Tissue Mobility Assessment myofascial tightness in the ITB, adductors, iliopsoas, quad L>R anterior hip. Joint Mobility Assessment Joint Mobility Assessment decreased anterior joint mobility of the left hip for ER, pt is also limited in hip flexion and hip abduction on the left PT-OP-G Mobility & Gait Start: 06/30/22 13:07 Freq: Status: Active Protocol: Document 06/30/22 11:15 AMH (Rec: 07/06/22 08:34 [facility] [id number]) OP Mobility Evaluation Functional Movements Other Functional Movements pt is limited with standing hip flexion as this is tight and restricted and causes pain , pt is limited with her walking distance due to tightness and pain following PT-OP-J Posture/Palpation/Skin Start: 06/30/22 13:07 Freq: Status: Active Protocol: Document 06/30/22 11:15 [facility] (Rec: 07/06/22 08:34 [facility] [id number]) Palpation Assessment Location left anterior hip Palpation Findings Soft Tissue Tightness,Spasm, Muscle Guarding,Tenderness left lateral hip Palpation Findings Soft Tissue Tightness,Spasm, Muscle Guarding,Tenderness Palpation Details ITB proximal attachments PT-OP-K Range of Motion Start: 06/30/22 13:07 Freq: Status: Active Protocol: Document 06/30/22 11:15 AMH (Rec: 07/06/22 08:34 [facility] [id number]) Hip Goniometric Range of Motion Hip Left Hip ROM WFL No Testing Position Supine Flexion w/Knee Flexed 100 Straight Leg Raise 55 Extension 0 Abduction 10 External Rotation 8 Hip ROM Limitations Hip ROM Limitations Soft Tissue Tightness,Pain Comments OA in the left hip joint PT-OP-M Strength Start: 06/30/22 13:07 Freq: Status: Active Protocol: Document 06/30/22 11:15 [facility]H (Rec: 07/06/22 08:34 [facility] [id number]) Hip Strength Hip Manual Muscle Testing Left Flexion (L2) 3- Fair- Abduction 3- Fair- External Rotation 3- Fair- PT-OP-Q Treatments Start: 06/30/22 13:07 Freq: Status: Active Protocol: Document 08/05/22 14:32 SP (Rec: 08/05/22 15:50 SP [id number]) Cardio Equipment Bicycle (Upright) Duration (Minutes) 6 Resistance 7 Seat Position 2 Other 118 BPM>98>110 with activity, w/ less thigh tension gd stretch Therapeutic Exercises Supine Exercises fig 4 Supine Exercise Name limited range Side left Comments incorporated with manual to adductor Paulie Stretch Supine Exercise Name incorporated with manual today Side left Comments decreased hip extension ROM, tight quad, ITB Prone Exercises L quad stretch Prone Exercise Name added to HEP Side left Equipment Used w/ strap at ankle, towel roll under distal thigh Reps/Minutes 60 x2 Comments manual stretch, self supported , MWM hip IR/ ER Sidelying Exercises clamshell Sidelying Exercise Name trialed past HEP Side left Reps/Minutes x8 reps Comments limited hip ER Manual Therapy Treatment Soft Tissue Mobilization MFR for the quads and ITB Body Location left ITB, quads, TFL, adductor Mobilization Type Cross-Friction,Myofascial Release Intensity/Depth Moderate Body Position Hooklying Comments MFR manual at both distal and proximal ITB attachment, mid/ proximal adductor, quad, TFL Joint Mobilizations MWM with belt hip distraction Joint left hip Direction medial & inferior glide Body Position RSidelying Comments hip distraction medial adn inferior glide w/ manual/ supported hip abd, therapist anchored PT-OP-T Assessment and Plan Start: 06/30/22 13:07 Freq: Status: Active Protocol: Document 08/05/22 14:32 SP (Rec: 08/05/22 15:50 SP [id number]) Physical Therapy Assessment Goals 4 Impairment tightness of the ITB, quadriceps, adductors, and iliopsoas L hip Workers' Compensation Magistrate Goal (LTG) Decrease soft tissue tightness withmanual therapy techniques and stretches. Pt is able to ride the stationary bike on a regular basis LTG Duration 12 weeks 3 Impairment Decreased L hip ROM into hip ER, abduction, flexion Short Term Goal (STG) specific stretches to lengthen the ITB, adductors, and iliopsoas are reviewed and pt is IND with a HEP STG Duration 3 weeks Workers' Compensation Magistrate Goal (LTG) Maura has a goal of being able to sit on the floor cross legged as well as be able to squat with decreased symptoms LTG Duration 12 weeks 2 Impairment pt has difficulty with stairs Workers' Compensation Magistrate Goal (LTG) With improved hip ROM stairs are improved and not as difficult LTG Duration 12 weeks 1 Impairment left lateral and anterior hip pain rated 2-5/10 depending on activity and can vary with movement Prison Goal (LTG) Maura reports a overall reduction in hip pain and she is able to return to her walking program due to decreased pain LTG Duration 12 weeks Assessment Summary Assessment Pt improved L hip mobility post manual and prone quad stretch with use of strap support w/ towel roll under distal thigh for added hip extension. Good response to initiated medial, inferior femur glide. She continues to be optomistic of gaining L hip ROM into ER. Physical Therapy Plan Frequency and Duration Frequency of Treatment 1x/Week Duration of treatment (weeks) 12 Plan of Care Start Date 06/30/22 Plan of Care End Date 08/26/22 Therapeutic Interventions Therapeutic Interventions Home Exercise Program,Joint Mobilizations,Manual Therapy, Patient/Caregiver Education, Self-Care/Home Management,Soft Tissue Mobilization Modalities Cold Pack/Ice Massage, Ultrasound Next Visit Focus/Plan Next Note Type Treatment Note Next Visit Plan Continue hip manual for gains in L hip ext, ER. Warm up on upright bike for hip ROM, continue working on MFR techniques to help decompress the left hip joint, iliopsoas stretches in paulie test position, MWM with mobilization belt for hip distraction and lateral joint glide.
--- NOTE | 2022-08-09 14:17 | PT.OTN ---
Current Diagnoses Other chronic pain (08/09/22) Pain in left hip (08/09/22) Pain in left knee (08/09/22) Iliotibial band syndrome, left leg (08/09/22) Physical Therapy Treatment Note PT-OP-A Visit Information Start: 06/30/22 11:21 Freq: Status: Active Protocol: Document 08/09/22 13:37 SP (Rec: 08/09/22 14:25 SP [id number]) Out-Patient Physical Therapy Visit Information Visit Information Visit Type Treatment Note Visit Start Time 13:37 Visit Stop Time 14:17 Total Visit Minutes 40 Visit Number 8 Number of NODE JS DEVELOPER Visits 2 Evaluation Information Evaluation Date 06/30/22 Precautions Precautions Hx: BROOKS, Els Danos, MCAS (Mass Cell Activation Syndrome ) PT-OP-B Current Condition Start: 06/30/22 11:21 Freq: Status: Active Protocol: Document 06/30/22 11:15 [facility] (Rec: 06/30/22 12:03 [facility] [id number]) Current Condition History of Current Condition Onset Date May 07 Current Complaints Lt sided hip pain History of Current Condition pt had a cortisone injection but it did not not stop her pain , but now she has pain into her groin and into her hip on the left side but she thinks it reduced the swelling in the joint capsule and she feels that now her hip is mobilie in the joint more She did get good ROM after the injection, she is doing the hip mobilizations with the belt and this help. She has stopped doind pigeon pose as she feels that maybe it is pushing on the hip She still feels that anerior hip with marches, she still feels the lateral knee with walking She is wearing a sleeve on her left knee and that helps and she is wearing her custom orthotics SHe feels if she had a MRI it may help her decide if she would benefit from prolotherapy. Treatment Goals Patient/Caregiver Goals her goals are to work on strength and stability PT-OP-C Subjective Start: 06/30/22 13:07 Freq: Status: Active Protocol: Document 08/09/22 13:37 SP (Rec: 08/09/22 14:25 SP [id number]) OP-PT Subjective Patient Comments Patient Comments Pt reports able to lift LLE back to grasp in standing quad stretch now. PT-OP-F Manual Assessment Start: 06/30/22 13:07 Freq: Status: Active Protocol: Document 06/30/22 11:15 [facility] (Rec: 07/06/22 08:34 [facility] [id number]) Manual Assessments Soft Tissue Assessment Soft Tissue Mobility Assessment myofascial tightness in the ITB, adductors, iliopsoas, quad L>R anterior hip. Joint Mobility Assessment Joint Mobility Assessment decreased anterior joint mobility of the left hip for ER, pt is also limited in hip flexion and hip abduction on the left PT-OP-G Mobility & Gait Start: 06/30/22 13:07 Freq: Status: Active Protocol: Document 06/30/22 11:15 [facility] (Rec: 07/06/22 08:34 [facility] [id number]) OP Mobility Evaluation Functional Movements Other Functional Movements pt is limited with standing hip flexion as this is tight and restricted and causes pain , pt is limited with her walking distance due to tightness and pain following PT-OP-J Posture/Palpation/Skin Start: 06/30/22 13:07 Freq: Status: Active Protocol: Document 06/30/22 11:15 [facility] (Rec: 07/06/22 08:34 [facility] [id number]) Palpation Assessment Location left anterior hip Palpation Findings Soft Tissue Tightness,Spasm, Muscle Guarding,Tenderness left lateral hip Palpation Findings Soft Tissue Tightness,Spasm, Muscle Guarding,Tenderness Palpation Details ITB proximal attachments PT-OP-K Range of Motion Start: 06/30/22 13:07 Freq: Status: Active Protocol: Document 06/30/22 11:15 [facility] (Rec: 07/06/22 08:34 [facility] [id number]) Hip Goniometric Range of Motion Hip Left Hip ROM WFL No Testing Position Supine Flexion w/Knee Flexed 100 Straight Leg Raise 55 Extension 0 Abduction 10 External Rotation 8 Hip ROM Limitations Hip ROM Limitations Soft Tissue Tightness,Pain Comments OA in the left hip joint PT-OP-M Strength Start: 06/30/22 13:07 Freq: Status: Active Protocol: Document 06/30/22 11:15 [facility] (Rec: 07/06/22 08:34 [facility] [id number]) Hip Strength Hip Manual Muscle Testing Left Flexion (L2) 3- Fair- Abduction 3- Fair- External Rotation 3- Fair- PT-OP-Q Treatments Start: 06/30/22 13:07 Freq: Status: Active Protocol: Document 08/09/22 13:37 SP (Rec: 08/09/22 14:25 SP [id number]) Therapeutic Exercises Supine Exercises fig 4 Supine Exercise Name limited range Side left Comments incorporated with manual to adductor adductor stretch using strap Supine Exercise Name left leg Reps/Minutes hold 1-2 min as tolerated Comments cued keep R pelvis Prone Exercises L quad stretch Prone Exercise Name reviewed HEP Side left Equipment Used w/ strap at ankle, towel roll under distal thigh Reps/Minutes 60 x2 Comments manual stretch, self supported , MWM hip IR/ ER Standing Exercises lunge hip flexor stretch Standing Exercise Name added today (no HO given, reported self recall good) Side left Equipment Used RLE on chair facing holding back Comments cued wt shift fwd, improved L hip ext post manual. Other Exercises 1/2 kneel Other Exercise Name reviewed self hip mob w/ strap Equipment Used contact chair Reps/Minutes 20 SH x2 Comments lateral, added fwd lunge for posterior glide Manual Therapy Treatment Soft Tissue Mobilization MFR for the quads and ITB Body Location left ITB, quads, TFL, adductor Mobilization Type Cross-Friction,Instrument Assisted,Myofascial Release Intensity/Depth Moderate Body Position Hooklying Comments MFR manual at both distal and proximal ITB attachment, mid/ proximal adductor, quad, TFL Joint Mobilizations MWM with lateral hip distraction Joint left hip Direction lateral, posterior Body Position Supine Comments 1/2 kneel manual supoprt set up. PT-OP-T Assessment and Plan Start: 06/30/22 13:07 Freq: Status: Active Protocol: Document 08/09/22 13:37 SP (Rec: 08/09/22 14:25 SP [id number]) Physical Therapy Assessment Goals 4 Impairment tightness of the ITB, quadriceps, adductors, and iliopsoas L hip [employer] Coach Goal (LTG) Decrease soft tissue tightness withmanual therapy techniques and stretches. Pt is able to ride the stationary bike on a regular basis LTG Duration 12 weeks 3 Impairment Decreased L hip ROM into hip ER, abduction, flexion Short Term Goal (STG) specific stretches to lengthen the ITB, adductors, and iliopsoas are reviewed and pt is IND with a HEP STG Duration 3 weeks [employer] School Sports Coach Goal (LTG) Maura has a goal of being able to sit on the floor cross legged as well as be able to squat with decreased symptoms LTG Duration 12 weeks 2 Impairment pt has difficulty with stairs Halfway Goal (LTG) With improved hip ROM stairs are improved and not as difficult LTG Duration 12 weeks 1 Impairment left lateral and anterior hip pain rated 2-5/10 depending on activity and can vary with movement [employer] Sports Coach Goal (LTG) Maura reports a overall reduction in hip pain and she is able to return to her walking program due to decreased pain LTG Duration 12 weeks Assessment Summary Assessment Pt improved L hip mobility post manual, stretching and review self hip mobs 1/2 kneel for posterior and lateral glides with reports little better lunge RLE into chair and hip extension holding chair back be end of tx. Physical Therapy Plan Frequency and Duration Frequency of Treatment 1x/Week Duration of treatment (weeks) 12 Plan of Care Start Date 06/30/22 Plan of Care End Date 08/26/22 Therapeutic Interventions Therapeutic Interventions Home Exercise Program,Joint Mobilizations,Manual Therapy, Patient/Caregiver Education, Self-Care/Home Management,Soft Tissue Mobilization Modalities Cold Pack/Ice Massage, Ultrasound Next Visit Focus/Plan Next Note Type Treatment Note Next Visit Plan Continue hip manual for gains in L hip ext, ER. Warm up on upright bike for hip ROM, continue working on MFR techniques to help decompress the left hip joint, iliopsoas stretches in aldo test position, MWM with mobilization belt for hip distraction and lateral joint glide.
--- NOTE | 2022-08-16 14:15 | PT.OTN ---
Current Diagnoses Other chronic pain (08/16/22) Pain in left hip (08/16/22) Pain in left knee (08/16/22) Iliotibial band syndrome, left leg (08/16/22) Physical Therapy Treatment Note PT-OP-A Visit Information Start: 06/30/22 11:21 Freq: Status: Active Protocol: Document 08/16/22 13:34 SP (Rec: 08/16/22 14:23 SP [id number]) Out-Patient Physical Therapy Visit Information Visit Information Visit Type Treatment Note Visit Note POC update and 10th visit next appt. Visit Start Time 13:34 Visit Stop Time 14:15 Total Visit Minutes 41 Visit Number 9 Number of PINMAKER Visits 3 Evaluation Information Evaluation Date 06/30/22 Precautions Precautions Hx: BROOKS, Renita Danmary, MCAS (Mass Cell Activation Syndrome ) PT-OP-B Current Condition Start: 06/30/22 11:21 Freq: Status: Active Protocol: Document 06/30/22 11:15 [facility] (Rec: 06/30/22 12:03 [facility] [id number]) Current Condition History of Current Condition Onset Date May 07 Current Complaints Lt sided hip pain History of Current Condition pt had a cortisone injection but it did not not stop her pain , but now she has pain into her groin and into her hip on the left side but she thinks it reduced the swelling in the joint capsule and she feels that now her hip is mobilie in the joint more She did get good ROM after the injection, she is doing the hip mobilizations with the belt and this help. She has stopped doind pigeon pose as she feels that maybe it is pushing on the hip She still feels that anerior hip with marches, she still feels the lateral knee with walking She is wearing a sleeve on her left knee and that helps and she is wearing her custom orthotics SHe feels if she had a MRI it may help her decide if she would benefit from prolotherapy. Treatment Goals Patient/Caregiver Goals her goals are to work on strength and stability PT-OP-C Subjective Start: 06/30/22 13:07 Freq: Status: Active Protocol: Document 08/16/22 13:34 SP (Rec: 08/16/22 14:23 SP [id number]) OP-PT Subjective Patient Comments Patient Comments Pt reports L medial (vertical) quad very tight today and more lately, decrease knee extension recruiting hip hike for LLe advancement. She states cups, self massage and uses new vibration device but wonders if using to strong a setting. Pt states compliant with many ther ex has, see scanned in. She reports stairs still seems to be a challenge. She is headed out on her boat for the rest of the week so will see how she does when sees Norah next. She stated will be gone after 08/31 appt til end September but wants to continue PT. PT-OP-F Manual Assessment Start: 06/30/22 13:07 Freq: Status: Active Protocol: Document 06/30/22 11:15 [facility] (Rec: 07/06/22 08:34 [facility] [id number]) Manual Assessments Soft Tissue Assessment Soft Tissue Mobility Assessment myofascial tightness in the ITB, adductors, iliopsoas, quad L>R anterior hip. Joint Mobility Assessment Joint Mobility Assessment decreased anterior joint mobility of the left hip for ER, pt is also limited in hip flexion and hip abduction on the left PT-OP-G Mobility & Gait Start: 06/30/22 13:07 Freq: Status: Active Protocol: Document 06/30/22 11:15 [facility] (Rec: 07/06/22 08:34 [facility] [id number]) OP Mobility Evaluation Functional Movements Other Functional Movements pt is limited with standing hip flexion as this is tight and restricted and causes pain , pt is limited with her walking distance due to tightness and pain following PT-OP-J Posture/Palpation/Skin Start: 06/30/22 13:07 Freq: Status: Active Protocol: Document 06/30/22 11:15 [facility] (Rec: 07/06/22 08:34 [facility] [id number]) Palpation Assessment Location left anterior hip Palpation Findings Soft Tissue Tightness,Spasm, Muscle Guarding,Tenderness left lateral hip Palpation Findings Soft Tissue Tightness,Spasm, Muscle Guarding,Tenderness Palpation Details ITB proximal attachments PT-OP-K Range of Motion Start: 06/30/22 13:07 Freq: Status: Active Protocol: Document 06/30/22 11:15 [facility] (Rec: 07/06/22 08:34 [facility] [id number]) Hip Goniometric Range of Motion Hip Left Hip ROM WFL No Testing Position Supine Flexion w/Knee Flexed 100 Straight Leg Raise 55 Extension 0 Abduction 10 External Rotation 8 Hip ROM Limitations Hip ROM Limitations Soft Tissue Tightness,Pain Comments OA in the left hip joint PT-OP-M Strength Start: 06/30/22 13:07 Freq: Status: Active Protocol: Document 06/30/22 11:15 AM[facility] (Rec: 07/06/22 08:34 [facility] [id number]) Hip Strength Hip Manual Muscle Testing Left Flexion (L2) 3- Fair- Abduction 3- Fair- External Rotation 3- Fair- PT-OP-Q Treatments Start: 06/30/22 13:07 Freq: Status: Active Protocol: Document 08/16/22 13:34 SP (Rec: 08/16/22 14:23 SP [id number]) Therapeutic Exercises Supine Exercises Paulie Stretch Side left Reps/Minutes 60 Comments reports better stretch post manual Prone Exercises L quad stretch Prone Exercise Name reviewed HEP Side left Resistance therapist PROM Equipment Used manual due to thinks using strap has been little to much. Reps/Minutes 60 x2 Comments manual stretch Other Exercises HEP review Other Exercise Name bird dog x5 reps- good form, child's pose post manual. Reps/Minutes 2 min Manual Therapy Treatment Soft Tissue Mobilization L hip Body Location manual MWM piriformis w/ IR & ER PROM Mobilization Type Sustained Pressure,Other Intensity/Depth Moderate Body Position Prone Comments manual gentle STMs and stretching -little lateral L knee irritation end feel IR stretch (knee bent and long axis) MFR for the quads and ITB Body Location left ITB, quads, TFL, adductor Mobilization Type Cross-Friction,Instrument Assisted,Myofascial Release Intensity/Depth Moderate Body Position Hooklying Comments MFR manual at both distal and proximal ITB attachment, mid/ proximal adductor, quad, TFL Joint Mobilizations MWM with lateral hip distraction Joint left hip Direction lateral, posterior Body Position Supine Manual Techniques Passive stretching Type L hip Body Position Prone Comments knee bent passive IR/ ER, long axis- more limited IR. PT-OP-T Assessment and Plan Start: 06/30/22 13:07 Freq: Status: Active Protocol: Document 08/16/22 13:34 SP (Rec: 08/16/22 14:23 SP [id number]) Physical Therapy Assessment Goals 4 Impairment tightness of the ITB, quadriceps, adductors, and iliopsoas L hip Correction Goal (LTG) Decrease soft tissue tightness withmanual therapy techniques and stretches. Pt is able to ride the stationary bike on a regular basis LTG Duration 12 weeks 3 Impairment Decreased L hip ROM into hip ER, abduction, flexion Short Term Goal (STG) specific stretches to lengthen the ITB, adductors, and iliopsoas are reviewed and pt is IND with a HEP STG Duration 3 weeks Correction Goal (LTG) Maura has a goal of being able to sit on the floor cross legged as well as be able to squat with decreased symptoms LTG Duration 12 weeks 2 Impairment pt has difficulty with stairs Aerospace Assembler Goal (LTG) With improved hip ROM stairs are improved and not as difficult LTG Duration 12 weeks 1 Impairment left lateral and anterior hip pain rated 2-5/10 depending on activity and can vary with movement Aerospace Assembler Goal (LTG) Maura reports a overall reduction in hip pain and she is able to return to her walking program due to decreased pain LTG Duration 12 weeks Assessment Summary Assessment Pt improved L hip extension and reports med/lateral L hip rotation post manual, she reports good Paulie stretch self and assisted prone quad stretch end tx. Pt improved almost no hip hike and almost normal L knee flex/ext swing through AROM leaving. My leg feels alot better. Physical Therapy Plan Frequency and Duration Frequency of Treatment 1x/Week Duration of treatment (weeks) 12 Plan of Care Start Date 06/30/22 Plan of Care End Date 08/26/22 Therapeutic Interventions Therapeutic Interventions Home Exercise Program,Joint Mobilizations,Manual Therapy, Patient/Caregiver Education, Self-Care/Home Management,Soft Tissue Mobilization Modalities Cold Pack/Ice Massage, Ultrasound Next Visit Focus/Plan Next Note Type Progress Note Next Visit Plan Continue hip manual for gains in L hip ext, ER. Warm up on upright bike for hip ROM, continue working on MFR techniques to help decompress the left hip joint, iliopsoas stretches in paulie test position, MWM with mobilization belt for hip distraction and lateral joint glide.
--- NOTE | 2022-08-29 10:27 | PT.OTN ---
Current Diagnoses Other chronic pain (08/26/22) Pain in left hip (08/26/22) Pain in left knee (08/26/22) Iliotibial band syndrome, left leg (08/26/22) Physical Therapy Treatment Note PT-OP-A Visit Information Start: 06/30/22 11:21 Freq: Status: Active Protocol: Document 08/26/22 13:21 [facility] (Rec: 08/26/22 13:24 [facility] [id number]) Out-Patient Physical Therapy Visit Information Visit Information Visit Type Progress Note Visit Start Time 13:20 Visit Stop Time 14:00 Total Visit Minutes 40 Visit Number 10 PT-OP-B Current Condition Start: 06/30/22 11:21 Freq: Status: Active Protocol: Document 06/30/22 11:15 [facility] (Rec: 06/30/22 12:03 [facility] [id number]) Current Condition History of Current Condition Onset Date May 07 Current Complaints Lt sided hip pain History of Current Condition pt had a cortisone injection but it did not not stop her pain , but now she has pain into her groin and into her hip on the left side but she thinks it reduced the swelling in the joint capsule and she feels that now her hip is mobilie in the joint more She did get good ROM after the injection, she is doing the hip mobilizations with the belt and this help. She has stopped doind pigeon pose as she feels that maybe it is pushing on the hip She still feels that anerior hip with marches, she still feels the lateral knee with walking She is wearing a sleeve on her left knee and that helps and she is wearing her custom orthotics SHe feels if she had a MRI it may help her decide if she would benefit from prolotherapy. Treatment Goals Patient/Caregiver Goals her goals are to work on strength and stability PT-OP-C Subjective Start: 06/30/22 13:07 Freq: Status: Active Protocol: Document 08/26/22 13:21 [facility] (Rec: 08/26/22 13:24 [facility] [id number]) OP-PT Subjective Patient Comments Patient Comments pt notes she did get a bike, she stepped onto a dock that was mobile and this really irritated her hip. She has her MRI tomorrow. The knee is where the most intense buring pain in. PT-OP-F Manual Assessment Start: 06/30/22 13:07 Freq: Status: Active Protocol: Document 06/30/22 11:15 [facility] (Rec: 07/06/22 08:34 [facility] [id number]) Manual Assessments Soft Tissue Assessment Soft Tissue Mobility Assessment myofascial tightness in the ITB, adductors, iliopsoas, quad L>R anterior hip. Joint Mobility Assessment Joint Mobility Assessment decreased anterior joint mobility of the left hip for ER, pt is also limited in hip flexion and hip abduction on the left PT-OP-G Mobility & Gait Start: 06/30/22 13:07 Freq: Status: Active Protocol: Document 06/30/22 11:15 [facility] (Rec: 07/06/22 08:34 [facility] [id number]) OP Mobility Evaluation Functional Movements Other Functional Movements pt is limited with standing hip flexion as this is tight and restricted and causes pain , pt is limited with her walking distance due to tightness and pain following PT-OP-J Posture/Palpation/Skin Start: 06/30/22 13:07 Freq: Status: Active Protocol: Document 06/30/22 11:15 [facility] (Rec: 07/06/22 08:34 [facility] [id number]) Palpation Assessment Location left anterior hip Palpation Findings Soft Tissue Tightness,Spasm, Muscle Guarding,Tenderness left lateral hip Palpation Findings Soft Tissue Tightness,Spasm, Muscle Guarding,Tenderness Palpation Details ITB proximal attachments PT-OP-K Range of Motion Start: 06/30/22 13:07 Freq: Status: Active Protocol: Document 06/30/22 11:15 [facility] (Rec: 07/06/22 08:34 [facility] [id number]) Hip Goniometric Range of Motion Hip Left Hip ROM WFL No Testing Position Supine Flexion w/Knee Flexed 100 Straight Leg Raise 55 Extension 0 Abduction 10 External Rotation 8 Hip ROM Limitations Hip ROM Limitations Soft Tissue Tightness,Pain Comments OA in the left hip joint PT-OP-M Strength Start: 06/30/22 13:07 Freq: Status: Active Protocol: Document 06/30/22 11:15 [facility] (Rec: 07/06/22 08:34 [facility] [id number]) Hip Strength Hip Manual Muscle Testing Left Flexion (L2) 3- Fair- Abduction 3- Fair- External Rotation 3- Fair- PT-OP-Q Treatments Start: 06/30/22 13:07 Freq: Status: Active Protocol: Document 08/26/22 13:21 [facility] (Rec: 08/29/22 10:25 [facility] [id number]) Therapeutic Exercises Supine Exercises Paulie Stretch Side left Reps/Minutes 60 Comments reports better stretch post manual supine ITB stretch with strap Reps/Minutes hold 1-2 min Manual Therapy Treatment Soft Tissue Mobilization MFR for the quads and ITB Body Location left ITB, quads, TFL, adductor Mobilization Type Cross-Friction,Instrument Assisted,Myofascial Release Intensity/Depth Moderate Body Position Hooklying Comments MFR manual at both distal and proximal ITB attachment, mid/ proximal adductor, quad, TFL Joint Mobilizations MWM with lateral hip distraction Joint left hip Direction lateral, posterior Body Position Supine MWM with belt hip distraction Joint left hip Direction medial & inferior glide Body Position RSidelying Comments hip distraction medial adn inferior glide w/ manual/ supported hip abd, therapist anchored Manual Techniques manual stretches Type iliopsoas and adductor Comments iliopsoas stretch L in paulie test position, manual adductor stretch PT-OP-T Assessment and Plan Start: 06/30/22 13:07 Freq: Status: Active Protocol: Document 08/26/22 13:21 [facility] (Rec: 08/29/22 10:25 [facility] [id number]) Physical Therapy Assessment Goals 4 Impairment tightness of the ITB, quadriceps, adductors, and iliopsoas L hip Senior Loss Control Specialist Goal (LTG) Decrease soft tissue tightness withmanual therapy techniques and stretches. Pt is able to ride the stationary bike on a regular basis Good progress and pt has a bike now for home LTG Duration 12 weeks 3 Impairment Decreased L hip ROM into hip ER, abduction, flexion Short Term Goal (STG) specific stretches to lengthen the ITB, adductors, and iliopsoas are reviewed and pt is IND with a HEP excellent progress STG Duration 3 weeks Senior Loss Control Specialist Goal (LTG) Maura has a goal of being able to sit on the floor cross legged as well as be able to squat with decreased symptoms goal not yet met LTG Duration 12 weeks 2 Impairment pt has difficulty with stairs Correction Goal (LTG) With improved hip ROM stairs are improved and not as difficult pt still reports difficulty with hip flexion type activities on the left LE LTG Duration 12 weeks 1 Impairment left lateral and anterior hip pain rated 2-5/10 depending on activity and can vary with movement Correction Goal (LTG) Maura reports a overall reduction in hip pain and she is able to return to her walking program due to decreased pain good progress LTG Duration 12 weeks Assessment Summary Assessment Maura is presenting with improved hip abduction and extension, still very limited with hip IR/ER. She is feeling the the massage gun and the stationary bike that she just got for home is helping. She is having a MRI on her left knee this week to look for instability Physical Therapy Plan Frequency and Duration Frequency of Treatment 1x/Week Duration of treatment (weeks) 12 Plan of Care Start Date 08/26/22 Plan of Care End Date 11/18/22 Therapeutic Interventions Therapeutic Interventions Home Exercise Program,Joint Mobilizations,Manual Therapy, Patient/Caregiver Education, Self-Care/Home Management,Soft Tissue Mobilization Modalities Cold Pack/Ice Massage, Ultrasound Next Visit Focus/Plan Next Note Type Treatment Note Next Visit Plan Continue hip manual for gains in L hip ext, ER. Warm up on upright bike for hip ROM, continue working on MFR techniques to help decompress the left hip joint, iliopsoas stretches in paulie test position, MWM with mobilization belt for hip distraction and lateral joint glide.
--- NOTE | 2022-08-29 10:28 | PT.OPPOC ---
Physical, Occupational & Speech Therapy At [facility] Current Diagnoses Other chronic pain (08/26/22) Pain in left hip (08/26/22) Pain in left knee (08/26/22) Iliotibial band syndrome, left leg (08/26/22) Visit Care Team Role Provider Type Syed Perez MD Attending Provider Physician Family Provider Primary Care Provider Referring Provider Specialty: Internal Medicine Address: [address] [place] [address], [address], [place], [address] Email: [email or web address] Plan Of Care PT-OP-T Assessment and Plan Start: 06/30/22 13:07 Freq: Status: Active Protocol: Document 08/26/22 13:21 [facility] (Rec: 08/29/22 10:25 [facility] [id number]) Physical Therapy Assessment Goals 4 Impairment tightness of the ITB, quadriceps, adductors, and iliopsoas L hip Director Business Travel Goal (LTG) Decrease soft tissue tightness with manual therapy techniques and stretches. Pt is able to ride the stationary bike on a regular basis Good progress and pt has a bike now for home LTG Duration 12 weeks 3 Impairment Decreased L hip ROM into hip ER, abduction, flexion Short Term Goal (STG) specific stretches to lengthen the ITB, adductors, and iliopsoas are reviewed and pt is IND with a HEP excellent progress STG Duration 3 weeks Director Business Travel Goal (LTG) Maura has a goal of being able to sit on the floor cross legged as well as be able to squat with decreased symptoms goal not yet met LTG Duration 12 weeks 2 Impairment pt has difficulty with stairs Director Business Travel Goal (LTG) With improved hip ROM stairs are improved and not as difficult pt still reports difficulty with hip flexion type activities on the left LE LTG Duration 12 weeks 1 Impairment left lateral and anterior hip pain rated 2-5/10 depending on activity and can vary with movement Residential Goal (LTG) Maura reports a overall reduction in hip pain and she is able to return to her walking program due to decreased pain good progress LTG Duration 12 weeks Assessment Summary Assessment Maura is presenting with improved hip abduction and extension, still very limited with hip IR/ER. She is feeling the the massage gun and the stationary bike that she just got for home is helping. She is having a MRI on her left knee this week to look for instability Physical Therapy Plan Frequency and Duration Frequency of Treatment 1x/Week Duration of treatment (weeks) 12 Plan of Care Start Date 08/26/22 Plan of Care End Date 11/18/22 Therapeutic Interventions Therapeutic Interventions Home Exercise Program,Joint Mobilizations,Manual Therapy, Patient/Caregiver Education, Self-Care/Home Management,Soft Tissue Mobilization Modalities Cold Pack/Ice Massage, Ultrasound Next Visit Focus/Plan Next Note Type Treatment Note Next Visit Plan Continue hip manual for gains in L hip ext, ER. Warm up on upright bike for hip ROM, continue working on MFR techniques to help decompress the left hip joint, iliopsoas stretches in aldo test position, MWM with mobilization belt for hip distraction and lateral joint glide. Plan of Care Dates Plan of Care Start Date 08/26/22 Plan of Care End Date 11/18/22 Electronically Signed by: Norah Yu, PT 08/29/22 [id number] If you are in agreement with this Plan of Care, please return a signed and dated copy. I have reviewed this Plan of Care and certify that the skilled therapy services above are required to meet the patient?s needs. Physician Signature Date Printed Name and Credentials Clinical Instructor Signature Printed Name and Credentials
--- NOTE | 2022-08-31 15:24 | PT.OTN ---
Current Diagnoses Other chronic pain (08/31/22) Pain in left hip (08/31/22) Pain in left knee (08/31/22) Iliotibial band syndrome, left leg (08/31/22) Physical Therapy Treatment Note PT-OP-A Visit Information Start: 06/30/22 11:21 Freq: Status: Active Protocol: Document 08/31/22 13:16 [facility] (Rec: 08/31/22 14:03 [facility] [id number]) Out-Patient Physical Therapy Visit Information Visit Information Visit Type Treatment Note Visit Start Time 13:20 Visit Stop Time 13:45 Total Visit Minutes 42 Visit Number 11 PT-OP-B Current Condition Start: 06/30/22 11:21 Freq: Status: Active Protocol: Document 06/30/22 11:15 [facility] (Rec: 06/30/22 12:03 [facility] [id number]) Current Condition History of Current Condition Onset Date May 07 Current Complaints Lt sided hip pain History of Current Condition pt had a cortisone injection but it did not not stop her pain , but now she has pain into her groin and into her hip on the left side but she thinks it reduced the swelling in the joint capsule and she feels that now her hip is mobilie in the joint more She did get good ROM after the injection, she is doing the hip mobilizations with the belt and this help. She has stopped doind pigeon pose as she feels that maybe it is pushing on the hip She still feels that anerior hip with marches, she still feels the lateral knee with walking She is wearing a sleeve on her left knee and that helps and she is wearing her custom orthotics SHe feels if she had a MRI it may help her decide if she would benefit from prolotherapy. Treatment Goals Patient/Caregiver Goals her goals are to work on strength and stability PT-OP-C Subjective Start: 06/30/22 13:07 Freq: Status: Active Protocol: Document 08/31/22 13:16 [facility] (Rec: 08/31/22 14:03 [facility] [id number]) OP-PT Subjective Patient Comments Patient Comments pt notes she is riding the bike every day, She is riding 6-7 minutes. She woke up this am without any pain. Flexion still hurts her left hip the most PT-OP-F Manual Assessment Start: 06/30/22 13:07 Freq: Status: Active Protocol: Document 06/30/22 11:15 [facility] (Rec: 07/06/22 08:34 [facility] [id number]) Manual Assessments Soft Tissue Assessment Soft Tissue Mobility Assessment myofascial tightness in the ITB, adductors, iliopsoas, quad L>R anterior hip. Joint Mobility Assessment Joint Mobility Assessment decreased anterior joint mobility of the left hip for ER, pt is also limited in hip flexion and hip abduction on the left PT-OP-G Mobility & Gait Start: 06/30/22 13:07 Freq: Status: Active Protocol: Document 06/30/22 11:15 [facility] (Rec: 07/06/22 08:34 [facility] [id number]) OP Mobility Evaluation Functional Movements Other Functional Movements pt is limited with standing hip flexion as this is tight and restricted and causes pain , pt is limited with her walking distance due to tightness and pain following PT-OP-J Posture/Palpation/Skin Start: 06/30/22 13:07 Freq: Status: Active Protocol: Document 06/30/22 11:15 [facility] (Rec: 07/06/22 08:34 [facility] [id number]) Palpation Assessment Location left anterior hip Palpation Findings Soft Tissue Tightness,Spasm, Muscle Guarding,Tenderness left lateral hip Palpation Findings Soft Tissue Tightness,Spasm, Muscle Guarding,Tenderness Palpation Details ITB proximal attachments PT-OP-K Range of Motion Start: 06/30/22 13:07 Freq: Status: Active Protocol: Document 06/30/22 11:15 [facility] (Rec: 07/06/22 08:34 [facility] [id number]) Hip Goniometric Range of Motion Hip Left Hip ROM WFL No Testing Position Supine Flexion w/Knee Flexed 100 Straight Leg Raise 55 Extension 0 Abduction 10 External Rotation 8 Hip ROM Limitations Hip ROM Limitations Soft Tissue Tightness,Pain Comments OA in the left hip joint PT-OP-M Strength Start: 06/30/22 13:07 Freq: Status: Active Protocol: Document 06/30/22 11:15 [facility] (Rec: 07/06/22 08:34 [facility] [id number]) Hip Strength Hip Manual Muscle Testing Left Flexion (L2) 3- Fair- Abduction 3- Fair- External Rotation 3- Fair- PT-OP-Q Treatments Start: 06/30/22 13:07 Freq: Status: Active Protocol: Document 08/31/22 13:16 [facility] (Rec: 08/31/22 15:23 [facility] [id number]) Manual Therapy Treatment Soft Tissue Mobilization MFR for the quads and ITB Body Location left ITB, quads, TFL, adductor Mobilization Type Cross-Friction,Instrument Assisted,Myofascial Release Intensity/Depth Moderate Body Position Hooklying Comments MFR manual at both distal and proximal ITB attachment, mid/ proximal adductor, quad, TFL Manual Techniques manual stretches Type iliopsoas and adductor Comments iliopsoas stretch L in aldo test position, manual adductor stretch PT-OP-T Assessment and Plan Start: 06/30/22 13:07 Freq: Status: Active Protocol: Document 08/31/22 13:16 [facility] (Rec: 08/31/22 15:23 [facility] [id number]) Physical Therapy Assessment Goals 4 Impairment tightness of the ITB, quadriceps, adductors, and iliopsoas L hip Swim Instructor Goal (LTG) Decrease soft tissue tightness withmanual therapy techniques and stretches. Pt is able to ride the stationary bike on a regular basis Good progress and pt has a bike now for home LTG Duration 12 weeks 3 Impairment Decreased L hip ROM into hip ER, abduction, flexion Short Term Goal (STG) specific stretches to lengthen the ITB, adductors, and iliopsoas are reviewed and pt is IND with a HEP excellent progress STG Duration 3 weeks Correction Goal (LTG) Maura has a goal of being able to sit on the floor cross legged as well as be able to squat with decreased symptoms goal not yet met LTG Duration 12 weeks 2 Impairment pt has difficulty with stairs Correction Goal (LTG) With improved hip ROM stairs are improved and not as difficult pt still reports difficulty with hip flexion type activities on the left LE LTG Duration 12 weeks 1 Impairment left lateral and anterior hip pain rated 2-5/10 depending on activity and can vary with movement Swim Instructor Goal (LTG) Maura reports a overall reduction in hip pain and she is able to return to her walking program due to decreased pain good progress LTG Duration 12 weeks Assessment Summary Assessment Maura did have her MRI and the only thing that did show up was possible bakers cyst. She is more swollen under her left knee as compared to her right knee. I worked on ITB release for her today as she feels the ITB tightness starts at her knee. Maura will be out of town now for the month of September. She will resume PT upon return Physical Therapy Plan Frequency and Duration Frequency of Treatment 1x/Week Duration of treatment (weeks) 12 Plan of Care Start Date 08/26/22 Plan of Care End Date 11/18/22 Therapeutic Interventions Therapeutic Interventions Home Exercise Program,Joint Mobilizations,Manual Therapy, Patient/Caregiver Education, Self-Care/Home Management,Soft Tissue Mobilization Modalities Cold Pack/Ice Massage, Ultrasound Next Visit Focus/Plan Next Note Type Treatment Note Next Visit Plan Continue hip manual for gains in L hip ext, ER. Warm up on upright bike for hip ROM, continue working on MFR techniques to help decompress the left hip joint, iliopsoas stretches in aldo test position, MWM with mobilization belt for hip distraction and lateral joint glide.
--- NOTE | 2022-10-19 16:00 | PT.OTN ---
Current Diagnoses Other chronic pain (10/19/22) Pain in left hip (10/19/22) Pain in left knee (10/19/22) Iliotibial band syndrome, left leg (10/19/22) Physical Therapy Treatment Note PT-OP-A Visit Information Start: 06/30/22 11:21 Freq: Status: Active Protocol: Document 10/19/22 13:15 [facility] (Rec: 10/19/22 16:41 [facility] [id number]) Out-Patient Physical Therapy Visit Information Visit Information Visit Type Progress Note Visit Start Time 13:15 Visit Stop Time 14:00 Total Visit Minutes 45 Visit Number 12 Evaluation Information Evaluation Date 06/30/22 PT-OP-B Current Condition Start: 06/30/22 11:21 Freq: Status: Active Protocol: Document 06/30/22 11:15 [facility] (Rec: 06/30/22 12:03 [facility] [id number]) Current Condition History of Current Condition Onset Date May 07 Current Complaints Lt sided hip pain History of Current Condition pt had a cortisone injection but it did not not stop her pain , but now she has pain into her groin and into her hip on the left side but she thinks it reduced the swelling in the joint capsule and she feels that now her hip is mobilie in the joint more She did get good ROM after the injection, she is doing the hip mobilizations with the belt and this help. She has stopped doind pigeon pose as she feels that maybe it is pushing on the hip She still feels that anerior hip with marches, she still feels the lateral knee with walking She is wearing a sleeve on her left knee and that helps and she is wearing her custom orthotics SHe feels if she had a MRI it may help her decide if she would benefit from prolotherapy. Treatment Goals Patient/Caregiver Goals her goals are to work on strength and stability PT-OP-C Subjective Start: 06/30/22 13:07 Freq: Status: Active Protocol: Document 10/19/22 13:15 [facility] (Rec: 10/19/22 14:01 [facility] [id number]) OP-PT Subjective Patient Comments Patient Comments pt notes she got a kayak and feels it has been good for her kip to work her core, she does feel that the hip joint arthritis changes are worse now, there are times when it doesn't hurt at all and then there will be a sharp pain which feels like a pinch that causes her hip to buckle PT-OP-F Manual Assessment Start: 06/30/22 13:07 Freq: Status: Active Protocol: Document 06/30/22 11:15 [facility] (Rec: 07/06/22 08:34 [facility] [id number]) Manual Assessments Soft Tissue Assessment Soft Tissue Mobility Assessment myofascial tightness in the ITB, adductors, iliopsoas, quad L>R anterior hip. Joint Mobility Assessment Joint Mobility Assessment decreased anterior joint mobility of the left hip for ER, pt is also limited in hip flexion and hip abduction on the left PT-OP-G Mobility & Gait Start: 06/30/22 13:07 Freq: Status: Active Protocol: Document 06/30/22 11:15 [facility] (Rec: 07/06/22 08:34 [facility] [id number]) OP Mobility Evaluation Functional Movements Other Functional Movements pt is limited with standing hip flexion as this is tight and restricted and causes pain , pt is limited with her walking distance due to tightness and pain following PT-OP-J Posture/Palpation/Skin Start: 06/30/22 13:07 Freq: Status: Active Protocol: Document 06/30/22 11:15 [facility] (Rec: 07/06/22 08:34 [facility] [id number]) Palpation Assessment Location left anterior hip Palpation Findings Soft Tissue Tightness,Spasm, Muscle Guarding,Tenderness left lateral hip Palpation Findings Soft Tissue Tightness,Spasm, Muscle Guarding,Tenderness Palpation Details ITB proximal attachments PT-OP-K Range of Motion Start: 06/30/22 13:07 Freq: Status: Active Protocol: Document 06/30/22 11:15 [facility] (Rec: 07/06/22 08:34 [facility] [id number]) Hip Goniometric Range of Motion Hip Left Hip ROM WFL No Testing Position Supine Flexion w/Knee Flexed 100 Straight Leg Raise 55 Extension 0 Abduction 10 External Rotation 8 Hip ROM Limitations Hip ROM Limitations Soft Tissue Tightness,Pain Comments OA in the left hip joint PT-OP-M Strength Start: 06/30/22 13:07 Freq: Status: Active Protocol: Document 06/30/22 11:15 [facility] (Rec: 07/06/22 08:34 [facility] [id number]) Hip Strength Hip Manual Muscle Testing Left Flexion (L2) 3- Fair- Abduction 3- Fair- External Rotation 3- Fair- PT-OP-Q Treatments Start: 06/30/22 13:07 Freq: Status: Active Protocol: Document 10/19/22 13:15 [facility] (Rec: 10/20/22 12:04 [facility] [id number]) Manual Therapy Treatment Soft Tissue Mobilization L hip Body Location manual MWM piriformis w/ IR & ER PROM Mobilization Type Sustained Pressure,Other Intensity/Depth Moderate Body Position Prone Comments manual gentle STMs and stretching -little lateral L knee irritation end feel IR stretch (knee bent and long axis) Joint Mobilizations posterior capsule hip glides Grade III Body Position Supine Comments left hip, posterior capsule glides, pt tolerates well MWM with lateral hip distraction Joint left hip Direction lateral, posterior Body Position Supine MWM with belt hip distraction Joint left hip Direction medial & inferior glide Body Position RSidelying Comments hip distraction medial adn inferior glide w/ manual/ supported hip abd, therapist anchored PT-OP-T Assessment and Plan Start: 06/30/22 13:07 Freq: Status: Active Protocol: Document 10/19/22 13:15 [facility] (Rec: 10/20/22 12:04 [facility] [id number]) Physical Therapy Assessment Goals 4 Impairment Myofascial tightness of the ITB Retirement Goal (LTG) Decrease soft tissue tightness withmanual therapy techniques and stretches. Pt is able to ride the stationary bike on a regular basis pt has a bike now for home to help her. Maura just returned from being on her boat for 6 weeks and ITB has tightened up again LTG Duration 12 weeks 3 Impairment Pain with walking down a incline or stairs Short Term Goal (STG) specific stretches to lengthen the ITB, adductors, and iliopsoas are reviewed and pt is IND with a HEP excellent progress STG Duration 3 weeks Retirement Goal (LTG) Maura has a goal of being able to sit on the floor cross legged as well as be able to squat with decreased symptoms goal not yet met LTG Duration 12 weeks 2 Impairment hip pain ranging from 2-6/10 depending on activity as well as distal ITB pain at the knee Retirement Goal (LTG) With improved hip ROM stairs are improved and not as difficult pt still reports difficulty with hip flexion type activities on the left LE LTG Duration 12 weeks 1 Impairment Decreased hip ROM most significantly into flexion and ER, pt is unable to sit cross legged. Retirement Goal (LTG) Maura reports a overall reduction in hip pain and she is able to return to her walking program due to decreased pain good progress LTG Duration 12 weeks Assessment Summary Assessment Maura continues to experience left sided ITB tightness and hip discomfort/pain. Her symptoms are intermittent and flexion activites such as stipping up or marching irritate her hip. She has a istory of hypermobility and Elhers Danlos which is most likely contributing to the ITB working so hard to stabilize her hip. She may benefit from a trial of prolotherapy to assist with hip stabilization. She responds well to manual therapy techniques and has also purchased a bike for home for hip and knee ROM. Maura would benefit from continued PT Physical Therapy Plan Frequency and Duration Frequency of Treatment 1x/Week Duration of treatment (weeks) 8 Plan of Care Start Date 10/19/22 Plan of Care End Date 12/14/22 Therapeutic Interventions Therapeutic Interventions Home Exercise Program,Joint Mobilizations,Manual Therapy, Patient/Caregiver Education, Self-Care/Home Management,Soft Tissue Mobilization Modalities Cold Pack/Ice Massage, Ultrasound Next Visit Focus/Plan Next Note Type Treatment Note Next Visit Plan Continue hip manual for gains in L hip ext, ER. Warm up on upright bike for hip ROM, continue working on MFR techniques to help decompress the left hip joint, iliopsoas stretches in aldo test position, MWM with mobilization belt for hip distraction and lateral joint glide.
--- NOTE | 2022-10-19 16:00 | PT.OPPOC ---
Physical, Occupational & Speech Therapy At [facility] Current Diagnoses Other chronic pain (10/19/22) Pain in left hip (10/19/22) Pain in left knee (10/19/22) Iliotibial band syndrome, left leg (10/19/22) Visit Care Team Role Provider Type Syed Perez MD Attending Provider Physician Family Provider Primary Care Provider Referring Provider Specialty: Internal Medicine Address: [address] [place] [address], [address], [place], [address] Email: [email or web address] Plan Of Care PT-OP-T Assessment and Plan Start: 06/30/22 13:07 Freq: Status: Active Protocol: Document 10/19/22 13:15 [facility] (Rec: 10/20/22 12:04 [facility] [id number]) Physical Therapy Assessment Goals 4 Impairment Myofascial tightness of the ITB Intermediate Goal (LTG) Decrease soft tissue tightness withmanual therapy techniques and stretches. Pt is able to ride the stationary bike on a regular basis pt has a bike now for home to help her. Maura just returned from being on her boat for 6 weeks and ITB has tightened up again LTG Duration 12 weeks 3 Impairment Pain with walking down a incline or stairs Short Term Goal (STG) specific stretches to lengthen the ITB, adductors, and iliopsoas are reviewed and pt is IND with a HEP excellent progress STG Duration 3 weeks Teletype Installer Goal (LTG) Maura has a goal of being able to sit on the floor cross legged as well as be able to squat with decreased symptoms goal not yet met LTG Duration 12 weeks 2 Impairment hip pain ranging from 2-6/10 depending on activity as well as distal ITB pain at the knee Teletype Installer Goal (LTG) With improved hip ROM stairs are improved and not as difficult pt still reports difficulty with hip flexion type activities on the left LE LTG Duration 12 weeks 1 Impairment Decreased hip ROM most significantly into flexion and ER, pt is unable to sit cross legged. Teletype Installer Goal (LTG) Maura reports a overall reduction in hip pain and she is able to return to her walking program due to decreased pain good progress LTG Duration 12 weeks Assessment Summary Assessment Maura continues to experience left sided ITB tightness and hip discomfort/pain. Her symptoms are intermittent and flexion activites such as stipping up or marching irritate her hip. She has a istory of hypermobility and Elhers Danlos which is most likely contributing to the ITB working so hard to stabilize her hip. She may benefit from a trial of prolotherapy to assist with hip stabilization. She responds well to manual therapy techniques and has also purchased a bike for home for hip and knee ROM. Maura would benefit from continued PT Physical Therapy Plan Frequency and Duration Frequency of Treatment 1x/Week Duration of treatment (weeks) 8 Plan of Care Start Date 10/19/22 Plan of Care End Date 12/14/22 Therapeutic Interventions Therapeutic Interventions Home Exercise Program,Joint Mobilizations,Manual Therapy, Patient/Caregiver Education, Self-Care/Home Management,Soft Tissue Mobilization Modalities Cold Pack/Ice Massage, Ultrasound Next Visit Focus/Plan Next Note Type Treatment Note Next Visit Plan Continue hip manual for gains in L hip ext, ER. Warm up on upright bike for hip ROM, continue working on MFR techniques to help decompress the left hip joint, iliopsoas stretches in aldo test position, MWM with mobilization belt for hip distraction and lateral joint glide. Plan of Care Dates Plan of Care Start Date 10/19/22 Plan of Care End Date 12/14/22 Electronically Signed by: Norah Yu, PT 10/20/22 0899 If you are in agreement with this Plan of Care, please return a signed and dated copy. I have reviewed this Plan of Care and certify that the skilled therapy services above are required to meet the patient?s needs. Physician Signature Date Printed Name and Credentials Clinical Instructor Signature Printed Name and Credentials
--- NOTE | 2022-10-28 15:28 | PT.OTN ---
Current Diagnoses Other chronic pain (10/28/22) Pain in left hip (10/28/22) Pain in left knee (10/28/22) Iliotibial band syndrome, left leg (10/28/22) Physical Therapy Treatment Note PT-OP-A Visit Information Start: 06/30/22 11:21 Freq: Status: Active Protocol: Document 10/28/22 15:24 [facility] (Rec: 10/28/22 15:27 [facility] [id number]) Out-Patient Physical Therapy Visit Information Visit Information Visit Type Treatment Note Visit Start Time 14:00 Visit Stop Time 14:45 Total Visit Minutes 45 Visit Number 13 PT-OP-B Current Condition Start: 06/30/22 11:21 Freq: Status: Active Protocol: Document 06/30/22 11:15 [facility] (Rec: 06/30/22 12:03 [facility] [id number]) Current Condition History of Current Condition Onset Date May 07 Current Complaints Lt sided hip pain History of Current Condition pt had a cortisone injection but it did not not stop her pain , but now she has pain into her groin and into her hip on the left side but she thinks it reduced the swelling in the joint capsule and she feels that now her hip is mobilie in the joint more She did get good ROM after the injection, she is doing the hip mobilizations with the belt and this help. She has stopped doind pigeon pose as she feels that maybe it is pushing on the hip She still feels that anerior hip with marches, she still feels the lateral knee with walking She is wearing a sleeve on her left knee and that helps and she is wearing her custom orthotics SHe feels if she had a MRI it may help her decide if she would benefit from prolotherapy. Treatment Goals Patient/Caregiver Goals her goals are to work on strength and stability PT-OP-C Subjective Start: 06/30/22 13:07 Freq: Status: Active Protocol: Document 10/28/22 15:24 [facility] (Rec: 10/28/22 15:27 [facility] [id number]) OP-PT Subjective Patient Comments Patient Comments Maura reports she is limping today and feels tight in her anterior hip PT-OP-F Manual Assessment Start: 06/30/22 13:07 Freq: Status: Active Protocol: Document 06/30/22 11:15 [facility] (Rec: 07/06/22 08:34 [facility] [id number]) Manual Assessments Soft Tissue Assessment Soft Tissue Mobility Assessment myofascial tightness in the ITB, adductors, iliopsoas, quad L>R anterior hip. Joint Mobility Assessment Joint Mobility Assessment decreased anterior joint mobility of the left hip for ER, pt is also limited in hip flexion and hip abduction on the left PT-OP-G Mobility & Gait Start: 06/30/22 13:07 Freq: Status: Active Protocol: Document 06/30/22 11:15 [facility] (Rec: 07/06/22 08:34 [facility] [id number]) OP Mobility Evaluation Functional Movements Other Functional Movements pt is limited with standing hip flexion as this is tight and restricted and causes pain , pt is limited with her walking distance due to tightness and pain following PT-OP-J Posture/Palpation/Skin Start: 06/30/22 13:07 Freq: Status: Active Protocol: Document 06/30/22 11:15 [facility] (Rec: 07/06/22 08:34 [facility] [id number]) Palpation Assessment Location left anterior hip Palpation Findings Soft Tissue Tightness,Spasm, Muscle Guarding,Tenderness left lateral hip Palpation Findings Soft Tissue Tightness,Spasm, Muscle Guarding,Tenderness Palpation Details ITB proximal attachments PT-OP-K Range of Motion Start: 06/30/22 13:07 Freq: Status: Active Protocol: Document 06/30/22 11:15 [facility] (Rec: 07/06/22 08:34 [facility] [id number]) Hip Goniometric Range of Motion Hip Left Hip ROM WFL No Testing Position Supine Flexion w/Knee Flexed 100 Straight Leg Raise 55 Extension 0 Abduction 10 External Rotation 8 Hip ROM Limitations Hip ROM Limitations Soft Tissue Tightness,Pain Comments OA in the left hip joint PT-OP-M Strength Start: 06/30/22 13:07 Freq: Status: Active Protocol: Document 06/30/22 11:15 [facility] (Rec: 07/06/22 08:34 [facility] [id number]) Hip Strength Hip Manual Muscle Testing Left Flexion (L2) 3- Fair- Abduction 3- Fair- External Rotation 3- Fair- PT-OP-Q Treatments Start: 06/30/22 13:07 Freq: Status: Active Protocol: Document 10/28/22 15:24 [facility] (Rec: 10/28/22 15:27 [facility] [id number]) Manual Therapy Treatment Soft Tissue Mobilization MFR for the quads and ITB Body Location left ITB, quads, TFL, adductor Mobilization Type Cross-Friction,Instrument Assisted,Myofascial Release Intensity/Depth Moderate Body Position Hooklying Comments MFR manual at both distal and proximal ITB attachment, mid/ proximal adductor, quad, TFL Joint Mobilizations posterior capsule hip glides Grade III Body Position Supine Comments left hip, posterior capsule glides, pt tolerates well MWM with lateral hip distraction Joint left hip Direction lateral, posterior Body Position Supine MWM with belt hip distraction Joint left hip Direction medial & inferior glide Body Position RSidelying Comments hip distraction medial adn inferior glide w/ manual/ supported hip abd, therapist anchored Manual Techniques kinesiotape star pattern over distal and proximal ITB Comments star pattern with kinesiotape over distal and proximal ITB PT-OP-T Assessment and Plan Start: 06/30/22 13:07 Freq: Status: Active Protocol: Document 10/28/22 15:24 [facility] (Rec: 10/28/22 15:27 [facility] [id number]) Physical Therapy Assessment Assessment Summary Assessment Trial of kinesiotape over the distal and proximal ITB, pt did well today after stretching and mobilization however ITB seems to tighten up with activity for Maura Physical Therapy Plan Frequency and Duration Frequency of Treatment 1x/Week Duration of treatment (weeks) 8 Plan of Care Start Date 10/19/22 Plan of Care End Date 12/14/22 Therapeutic Interventions Therapeutic Interventions Home Exercise Program,Joint Mobilizations,Manual Therapy, Patient/Caregiver Education, Self-Care/Home Management,Soft Tissue Mobilization Modalities Cold Pack/Ice Massage, Ultrasound Next Visit Focus/Plan Next Note Type Treatment Note Next Visit Plan check in with how pt did with kinesiotape, continue working on hip mobilizations and ITB release
--- NOTE | 2022-11-02 16:12 | PT.OTN ---
Current Diagnoses Other chronic pain (11/02/22) Pain in left hip (11/02/22) Pain in left knee (11/02/22) Iliotibial band syndrome, left leg (11/02/22) Physical Therapy Treatment Note PT-OP-A Visit Information Start: 06/30/22 11:21 Freq: Status: Active Protocol: Document 11/02/22 13:14 [facility] (Rec: 11/02/22 14:03 [facility] [id number]) Out-Patient Physical Therapy Visit Information Visit Information Visit Type Treatment Note Visit Start Time 13:15 Visit Stop Time 14:00 Total Visit Minutes 45 Visit Number 14 PT-OP-B Current Condition Start: 06/30/22 11:21 Freq: Status: Active Protocol: Document 06/30/22 11:15 [facility] (Rec: 06/30/22 12:03 [facility] [id number]) Current Condition History of Current Condition Onset Date May 07 Current Complaints Lt sided hip pain History of Current Condition pt had a cortisone injection but it did not not stop her pain , but now she has pain into her groin and into her hip on the left side but she thinks it reduced the swelling in the joint capsule and she feels that now her hip is mobilie in the joint more She did get good ROM after the injection, she is doing the hip mobilizations with the belt and this help. She has stopped doind pigeon pose as she feels that maybe it is pushing on the hip She still feels that anerior hip with marches, she still feels the lateral knee with walking She is wearing a sleeve on her left knee and that helps and she is wearing her custom orthotics SHe feels if she had a MRI it may help her decide if she would benefit from prolotherapy. Treatment Goals Patient/Caregiver Goals her goals are to work on strength and stability PT-OP-C Subjective Start: 06/30/22 13:07 Freq: Status: Active Protocol: Document 11/02/22 13:14 [facility] (Rec: 11/02/22 14:03 [facility] [id number]) OP-PT Subjective Patient Comments Patient Comments pt notices that her leg will seize up and want to buckle, since last week most of her pain is in the distal knee. PT-OP-F Manual Assessment Start: 06/30/22 13:07 Freq: Status: Active Protocol: Document 06/30/22 11:15 [facility] (Rec: 07/06/22 08:34 [facility] [id number]) Manual Assessments Soft Tissue Assessment Soft Tissue Mobility Assessment myofascial tightness in the ITB, adductors, iliopsoas, quad L>R anterior hip. Joint Mobility Assessment Joint Mobility Assessment decreased anterior joint mobility of the left hip for ER, pt is also limited in hip flexion and hip abduction on the left PT-OP-G Mobility & Gait Start: 06/30/22 13:07 Freq: Status: Active Protocol: Document 06/30/22 11:15 [facility] (Rec: 07/06/22 08:34 [facility] [id number]) OP Mobility Evaluation Functional Movements Other Functional Movements pt is limited with standing hip flexion as this is tight and restricted and causes pain , pt is limited with her walking distance due to tightness and pain following PT-OP-J Posture/Palpation/Skin Start: 06/30/22 13:07 Freq: Status: Active Protocol: Document 06/30/22 11:15 [facility] (Rec: 07/06/22 08:34 [facility] [id number]) Palpation Assessment Location left anterior hip Palpation Findings Soft Tissue Tightness,Spasm, Muscle Guarding,Tenderness left lateral hip Palpation Findings Soft Tissue Tightness,Spasm, Muscle Guarding,Tenderness Palpation Details ITB proximal attachments PT-OP-K Range of Motion Start: 06/30/22 13:07 Freq: Status: Active Protocol: Document 06/30/22 11:15 [facility] (Rec: 07/06/22 08:34 [facility] [id number]) Hip Goniometric Range of Motion Hip Left Hip ROM WFL No Testing Position Supine Flexion w/Knee Flexed 100 Straight Leg Raise 55 Extension 0 Abduction 10 External Rotation 8 Hip ROM Limitations Hip ROM Limitations Soft Tissue Tightness,Pain Comments OA in the left hip joint PT-OP-M Strength Start: 06/30/22 13:07 Freq: Status: Active Protocol: Document 06/30/22 11:15 [facility] (Rec: 07/06/22 08:34 [facility] [id number]) Hip Strength Hip Manual Muscle Testing Left Flexion (L2) 3- Fair- Abduction 3- Fair- External Rotation 3- Fair- PT-OP-Q Treatments Start: 06/30/22 13:07 Freq: Status: Active Protocol: Document 11/02/22 13:14 [facility] (Rec: 11/02/22 15:02 [facility] [id number]) Manual Therapy Treatment Soft Tissue Mobilization MFR for the quads and ITB Body Location left ITB, quads, TFL, adductor Mobilization Type Cross-Friction,Instrument Assisted,Myofascial Release Intensity/Depth Moderate Body Position Hooklying Comments MFR manual at both distal and proximal ITB attachment, mid/ proximal adductor, quad, TFL Joint Mobilizations posterior capsule hip glides Grade III Body Position Supine Comments left hip, posterior capsule glides, pt tolerates well MWM with lateral hip distraction Joint left hip Direction lateral, posterior Body Position Supine MWM with belt hip distraction Joint left hip Direction medial & inferior glide Body Position RSidelying Comments hip distraction medial adn inferior glide w/ manual/ supported hip abd, therapist anchored Manual Techniques kinesiotape star pattern over distal and proximal ITB Comments star pattern with kinesiotape over distal and proximal ITB manual stretches Type iliopsoas and adductor Comments iliopsoas stretch L in aldo test position, manual adductor stretch PT-OP-T Assessment and Plan Start: 06/30/22 13:07 Freq: Status: Active Protocol: Document 11/02/22 13:14 [facility] (Rec: 11/02/22 16:11 [facility] [id number]) Physical Therapy Assessment Assessment Summary Assessment Maura responded well the the kinesiotape after last visit and requested to be taped again. I taped on more of the TFL today verses lateral hip Physical Therapy Plan Frequency and Duration Frequency of Treatment 1x/Week Duration of treatment (weeks) 8 Plan of Care Start Date 10/19/22 Plan of Care End Date 12/14/22 Therapeutic Interventions Therapeutic Interventions Home Exercise Program,Joint Mobilizations,Manual Therapy, Patient/Caregiver Education, Self-Care/Home Management,Soft Tissue Mobilization Modalities Cold Pack/Ice Massage, Ultrasound Next Visit Focus/Plan Next Note Type Treatment Note Next Visit Plan Continue hip manual for gains in L hip ext, ER. continue working on MFR techniques to help decompress the left hip joint, iliopsoas stretches in aldo test position, MWM with mobilization belt for hip distraction and lateral joint glide.
--- NOTE | 2022-11-09 15:57 | PT.OTN ---
Current Diagnoses Other chronic pain (11/09/22) Pain in left hip (11/09/22) Pain in left knee (11/09/22) Iliotibial band syndrome, left leg (11/09/22) Physical Therapy Treatment Note PT-OP-A Visit Information Start: 06/30/22 11:21 Freq: Status: Active Protocol: Document 11/09/22 15:01 [facility] (Rec: 11/09/22 15:57 [facility] [id number]) Out-Patient Physical Therapy Visit Information Visit Information Visit Type Treatment Note Visit Start Time 15:00 Visit Stop Time 15:45 Total Visit Minutes 45 Visit Number 15 PT-OP-B Current Condition Start: 06/30/22 11:21 Freq: Status: Active Protocol: Document 06/30/22 11:15 [facility] (Rec: 06/30/22 12:03 [facility] [id number]) Current Condition History of Current Condition Onset Date May 07 Current Complaints Lt sided hip pain History of Current Condition pt had a cortisone injection but it did not not stop her pain , but now she has pain into her groin and into her hip on the left side but she thinks it reduced the swelling in the joint capsule and she feels that now her hip is mobilie in the joint more She did get good ROM after the injection, she is doing the hip mobilizations with the belt and this help. She has stopped doind pigeon pose as she feels that maybe it is pushing on the hip She still feels that anerior hip with marches, she still feels the lateral knee with walking She is wearing a sleeve on her left knee and that helps and she is wearing her custom orthotics SHe feels if she had a MRI it may help her decide if she would benefit from prolotherapy. Treatment Goals Patient/Caregiver Goals her goals are to work on strength and stability PT-OP-C Subjective Start: 06/30/22 13:07 Freq: Status: Active Protocol: Document 11/09/22 15:01 [facility] (Rec: 11/09/22 15:57 [facility] [id number]) OP-PT Subjective Patient Comments Patient Comments Maura notes her left leg feels really tight today and she did the self correction for her SI joint earlier today as she felt out of alignment PT-OP-F Manual Assessment Start: 06/30/22 13:07 Freq: Status: Active Protocol: Document 06/30/22 11:15 [facility] (Rec: 07/06/22 08:34 [facility] [id number]) Manual Assessments Soft Tissue Assessment Soft Tissue Mobility Assessment myofascial tightness in the ITB, adductors, iliopsoas, quad L>R anterior hip. Joint Mobility Assessment Joint Mobility Assessment decreased anterior joint mobility of the left hip for ER, pt is also limited in hip flexion and hip abduction on the left PT-OP-G Mobility & Gait Start: 06/30/22 13:07 Freq: Status: Active Protocol: Document 06/30/22 11:15 [facility] (Rec: 07/06/22 08:34 [facility] [id number]) OP Mobility Evaluation Functional Movements Other Functional Movements pt is limited with standing hip flexion as this is tight and restricted and causes pain , pt is limited with her walking distance due to tightness and pain following PT-OP-J Posture/Palpation/Skin Start: 06/30/22 13:07 Freq: Status: Active Protocol: Document 06/30/22 11:15 [facility] (Rec: 07/06/22 08:34 [facility] [id number]) Palpation Assessment Location left anterior hip Palpation Findings Soft Tissue Tightness,Spasm, Muscle Guarding,Tenderness left lateral hip Palpation Findings Soft Tissue Tightness,Spasm, Muscle Guarding,Tenderness Palpation Details ITB proximal attachments PT-OP-K Range of Motion Start: 06/30/22 13:07 Freq: Status: Active Protocol: Document 06/30/22 11:15 [facility] (Rec: 07/06/22 08:34 [facility] [id number]) Hip Goniometric Range of Motion Hip Left Hip ROM WFL No Testing Position Supine Flexion w/Knee Flexed 100 Straight Leg Raise 55 Extension 0 Abduction 10 External Rotation 8 Hip ROM Limitations Hip ROM Limitations Soft Tissue Tightness,Pain Comments OA in the left hip joint PT-OP-M Strength Start: 06/30/22 13:07 Freq: Status: Active Protocol: Document 06/30/22 11:15 [facility] (Rec: 07/06/22 08:34 [facility] [id number]) Hip Strength Hip Manual Muscle Testing Left Flexion (L2) 3- Fair- Abduction 3- Fair- External Rotation 3- Fair- PT-OP-Q Treatments Start: 06/30/22 13:07 Freq: Status: Active Protocol: Document 11/09/22 15:01 [facility] (Rec: 11/09/22 15:57 [facility] [id number]) Manual Therapy Treatment Soft Tissue Mobilization MFR for the quads and ITB Body Location left ITB, quads, TFL, adductor Mobilization Type Cross-Friction,Instrument Assisted,Myofascial Release Intensity/Depth Moderate Body Position Hooklying Comments MFR manual at both distal and proximal ITB attachment, mid/ proximal adductor, quad, TFL Joint Mobilizations posterior capsule hip glides Grade III Body Position Supine Comments left hip, posterior capsule glides, pt tolerates well MWM with lateral hip distraction Joint left hip Direction lateral, posterior Body Position Supine MWM with belt hip distraction Joint left hip Direction medial & inferior glide Body Position RSidelying Comments hip distraction medial adn inferior glide w/ manual/ supported hip abd, therapist anchored Manual Techniques manual stretches Type iliopsoas and adductor Comments iliopsoas stretch L in aldo test position, manual adductor stretch PT-OP-T Assessment and Plan Start: 06/30/22 13:07 Freq: Status: Active Protocol: Document 11/09/22 15:01 [facility] (Rec: 11/09/22 15:57 [facility] [id number]) Physical Therapy Assessment Assessment Summary Assessment Maura was especially tight in the iliopsoas and the quads today on the left side. I encouraged her to work on sidelying quad release at home . She is working on getting a appointment with Dr. Patterson for prolotherapy Physical Therapy Plan Frequency and Duration Frequency of Treatment 1x/Week Duration of treatment (weeks) 8 Plan of Care Start Date 10/19/22 Plan of Care End Date 12/14/22 Therapeutic Interventions Therapeutic Interventions Home Exercise Program,Joint Mobilizations,Manual Therapy, Patient/Caregiver Education, Self-Care/Home Management,Soft Tissue Mobilization Modalities Cold Pack/Ice Massage, Ultrasound Next Visit Focus/Plan Next Note Type Treatment Note Next Visit Plan Continue hip manual for gains in L hip ext, ER. continue working on MFR techniques to help decompress the left hip joint, iliopsoas stretches in aldo test position, MWM with mobilization belt for hip distraction and lateral joint glide.
--- NOTE | 2022-12-14 15:41 | PT.OTN ---
Current Diagnoses Other chronic pain (12/14/22) Pain in left hip (12/14/22) Pain in left knee (12/14/22) Iliotibial band syndrome, left leg (12/14/22) Physical Therapy Treatment Note PT-OP-A Visit Information Start: 06/30/22 11:21 Freq: Status: Active Protocol: Document 12/14/22 14:17 [facility] (Rec: 12/14/22 15:41 [facility] [id number]) Out-Patient Physical Therapy Visit Information Visit Information Visit Type Progress Note Visit Start Time 14:15 Visit Stop Time 15:00 Total Visit Minutes 45 Visit Number 16 PT-OP-B Current Condition Start: 06/30/22 11:21 Freq: Status: Active Protocol: Document 06/30/22 11:15 [facility] (Rec: 06/30/22 12:03 [facility] [id number]) Current Condition History of Current Condition Onset Date May 07 Current Complaints Lt sided hip pain History of Current Condition pt had a cortisone injection but it did not not stop her pain , but now she has pain into her groin and into her hip on the left side but she thinks it reduced the swelling in the joint capsule and she feels that now her hip is mobilie in the joint more She did get good ROM after the injection, she is doing the hip mobilizations with the belt and this help. She has stopped doind pigeon pose as she feels that maybe it is pushing on the hip She still feels that anerior hip with marches, she still feels the lateral knee with walking She is wearing a sleeve on her left knee and that helps and she is wearing her custom orthotics SHe feels if she had a MRI it may help her decide if she would benefit from prolotherapy. Treatment Goals Patient/Caregiver Goals her goals are to work on strength and stability PT-OP-C Subjective Start: 06/30/22 13:07 Freq: Status: Active Protocol: Document 12/14/22 14:17 [facility] (Rec: 12/14/22 15:41 [facility] [id number]) OP-PT Subjective Patient Comments Patient Comments Maura has a appt with Dr Ptaterson next week for prolotherapy consult. She notes she did well on her trip . The hyper volt really seems to help, she is doing yoga and the bike. She feels like with all of these techniques she is having agood success managing her symptoms. SHe does still occasionally still get a specific hip pain. PT-OP-F Manual Assessment Start: 06/30/22 13:07 Freq: Status: Active Protocol: Document 06/30/22 11:15 [facility] (Rec: 07/06/22 08:34 [facility] [id number]) Manual Assessments Soft Tissue Assessment Soft Tissue Mobility Assessment myofascial tightness in the ITB, adductors, iliopsoas, quad L>R anterior hip. Joint Mobility Assessment Joint Mobility Assessment decreased anterior joint mobility of the left hip for ER, pt is also limited in hip flexion and hip abduction on the left PT-OP-G Mobility & Gait Start: 06/30/22 13:07 Freq: Status: Active Protocol: Document 06/30/22 11:15 [facility] (Rec: 07/06/22 08:34 [facility] [id number]) OP Mobility Evaluation Functional Movements Other Functional Movements pt is limited with standing hip flexion as this is tight and restricted and causes pain , pt is limited with her walking distance due to tightness and pain following PT-OP-J Posture/Palpation/Skin Start: 06/30/22 13:07 Freq: Status: Active Protocol: Document 06/30/22 11:15 [facility] (Rec: 07/06/22 08:34 [facility] [id number]) Palpation Assessment Location left anterior hip Palpation Findings Soft Tissue Tightness,Spasm, Muscle Guarding,Tenderness left lateral hip Palpation Findings Soft Tissue Tightness,Spasm, Muscle Guarding,Tenderness Palpation Details ITB proximal attachments PT-OP-K Range of Motion Start: 06/30/22 13:07 Freq: Status: Active Protocol: Document 06/30/22 11:15 [facility] (Rec: 07/06/22 08:34 [facility] [id number]) Hip Goniometric Range of Motion Hip Left Hip ROM WFL No Testing Position Supine Flexion w/Knee Flexed 100 Straight Leg Raise 55 Extension 0 Abduction 10 External Rotation 8 Hip ROM Limitations Hip ROM Limitations Soft Tissue Tightness,Pain Comments OA in the left hip joint PT-OP-M Strength Start: 06/30/22 13:07 Freq: Status: Active Protocol: Document 06/30/22 11:15 [facility] (Rec: 07/06/22 08:34 [facility] [id number]) Hip Strength Hip Manual Muscle Testing Left Flexion (L2) 3- Fair- Abduction 3- Fair- External Rotation 3- Fair- PT-OP-Q Treatments Start: 06/30/22 13:07 Freq: Status: Active Protocol: Document 12/14/22 14:17 [facility] (Rec: 12/14/22 15:41 [facility] [id number]) Therapeutic Exercises Supine Exercises TKE left side Reps/Minutes 3 x 10 reps SLR with quad activation Reps/Minutes 3 x 10 reps Standing Exercises standing lunges Reps/Minutes x 10 each leg standing quad stretch Reps/Minutes hold 30-60 sec standing single leg squats Reps/Minutes x 10 Comments Muara was given theraband to work on for stabilzation with single leg squat Manual Therapy Treatment Soft Tissue Mobilization MFR for the quads and ITB Body Location left ITB, quads, TFL, adductor Mobilization Type Cross-Friction,Instrument Assisted,Myofascial Release Intensity/Depth Moderate Body Position Hooklying Comments MFR manual at both distal and proximal ITB attachment, mid/ proximal adductor, quad, TFL PT-OP-T Assessment and Plan Start: 06/30/22 13:07 Freq: Status: Active Protocol: Document 12/14/22 14:17 [facility] (Rec: 12/14/22 15:41 [facility] [id number]) Physical Therapy Assessment Goals 4 Impairment Myofascial tightness of the ITB Anesthesiology Medical Doctor Goal (LTG) Decrease soft tissue tightness withmanual therapy techniques and stretches. Pt is able to ride the stationary bike on a regular basis pt has a bike now for home to help her. The bike does help but she is still limited with hip flexion activities LTG Duration 12 weeks 3 Impairment Pain with walking down a incline or stairs Short Term Goal (STG) specific stretches to lengthen the ITB, adductors, and iliopsoas are reviewed and pt is IND with a HEP excellent progress STG Duration 3 weeks Assisted Goal (LTG) Maura has a goal of being able to sit on the floor cross legged as well as be able to squat with decreased symptoms goal not yet met LTG Duration 12 weeks 2 Impairment hip pain ranging from 2-6/10 depending on activity as well as distal ITB pain at the knee Anesthesiology Medical Doctor Goal (LTG) With improved hip ROM stairs are improved and not as difficult pt still reports difficulty with hip flexion type activities on the left LE LTG Duration 12 weeks 1 Impairment Decreased hip ROM most significantly into flexion and ER, pt is unable to sit cross legged. Anesthesiology Medical Doctor Goal (LTG) Maura reports a overall reduction in hip pain and she is able to return to her walking program due to decreased pain good progress LTG Duration 12 weeks Assessment Summary Assessment Maura has been using all the tools at home to manage her symptoms. I added in left sided quad strengthening today for her as she feels she is getting weaker in the left quad. She does have a consult with Dr Patterson for prolotherapy to see if stabilization at the hip and or knee may help reduce muscle tension from her quad and ITB . She would benefit from continued PT following prolotherapy Physical Therapy Plan Frequency and Duration Frequency of Treatment 2x/Week Duration of treatment (weeks) 8 Plan of Care Start Date 12/14/22 Plan of Care End Date 03/08/23 Next Visit Focus/Plan Next Note Type Treatment Note Next Visit Plan Continue hip manual for gains in L hip ext, ER. continue working on MFR techniques to help decompress the left hip joint, iliopsoas stretches in aldo test position, MWM with mobilization belt for hip distraction and lateral joint glide.
--- NOTE | 2022-12-14 15:41 | PT.OPPOC ---
Physical, Occupational & Speech Therapy At [facility] Current Diagnoses Other chronic pain (12/14/22) Pain in left hip (12/14/22) Pain in left knee (12/14/22) Iliotibial band syndrome, left leg (12/14/22) Visit Care Team Role Provider Type Syed Perez MD Attending Provider Physician Family Provider Primary Care Provider Referring Provider Specialty: Internal Medicine Address: [address] [place] [address], [address], [address] Email: [email or web address] Plan Of Care PT-OP-T Assessment and Plan Start: 06/30/22 13:07 Freq: Status: Active Protocol: Document 12/14/22 14:17 [facility] (Rec: 12/14/22 15:41 [facility] [id number]) Physical Therapy Assessment Goals 4 Impairment Myofascial tightness of the ITB Fdc Goal (LTG) Decrease soft tissue tightness withmanual therapy techniques and stretches. Pt is able to ride the stationary bike on a regular basis pt has a bike now for home to help her. The bike does help but she is still limited with hip flexion activities LTG Duration 12 weeks 3 Impairment Pain with walking down a incline or stairs Short Term Goal (STG) specific stretches to lengthen the ITB, adductors, and iliopsoas are reviewed and pt is IND with a HEP excellent progress STG Duration 3 weeks Fdc Goal (LTG) Maura has a goal of being able to sit on the floor cross legged as well as be able to squat with decreased symptoms goal not yet met LTG Duration 12 weeks 2 Impairment hip pain ranging from 2-6/10 depending on activity as well as distal ITB pain at the knee Fdc Goal (LTG) With improved hip ROM stairs are improved and not as difficult pt still reports difficulty with hip flexion type activities on the left LE LTG Duration 12 weeks 1 Impairment Decreased hip ROM most significantly into flexion and ER, pt is unable to sit cross legged. Rural Health Consultant Goal (LTG) Maura reports a overall reduction in hip pain and she is able to return to her walking program due to decreased pain good progress LTG Duration 12 weeks Assessment Summary Assessment Maura has been using all the tools at home to manage her symptoms. I added in left sided quad strengthening today for her as she feels she is getting weaker in the left quad. She does have a consult with Dr Patterson for prolotherapy to see if stabilization at the hip and or knee may help reduce muscle tension from her quad and ITB . She would benefit from continued PT following prolotherapy Physical Therapy Plan Frequency and Duration Frequency of Treatment 2x/Week Duration of treatment (weeks) 8 Plan of Care Start Date 12/14/22 Plan of Care End Date 03/08/23 Next Visit Focus/Plan Next Note Type Treatment Note Next Visit Plan Continue hip manual for gains in L hip ext, ER. continue working on MFR techniques to help decompress the left hip joint, iliopsoas stretches in aldo test position, MWM with mobilization belt for hip distraction and lateral joint glide. Plan of Care Dates Plan of Care Start Date 12/14/22 Plan of Care End Date 03/08/23 Electronically Signed by: Norah Yu, PT 12/14/22 [id number] If you are in agreement with this Plan of Care, please return a signed and dated copy. I have reviewed this Plan of Care and certify that the skilled therapy services above are required to meet the patient?s needs. Physician Signature Date Printed Name and Credentials Clinical Instructor Signature Printed Name and Credentials
--- NOTE | 2023-02-08 08:57 | PT.OPDS ---
Current Diagnoses Other chronic pain (12/14/22) Pain in left hip (12/14/22) Pain in left knee (12/14/22) Iliotibial band syndrome, left leg (12/14/22) Visit Care Team Role Provider Type Syed Perez MD Attending Provider Physician Family Provider Primary Care Provider Referring Provider Specialty: Internal Medicine Address: [address] [address], [address], [address] Email: [email or web address] Visit Number Visit Number 16 Discharge Summary PT-OP-B Current Condition Start: 06/30/22 11:21 Freq: Status: Active Protocol: Document 06/30/22 11:15 [facility] (Rec: 06/30/22 12:03 [facility] [id number]) Current Condition History of Current Condition Onset Date May 07 Current Complaints Lt sided hip pain History of Current Condition pt had a cortisone injection but it did not not stop her pain , but now she has pain into her groin and into her hip on the left side but she thinks it reduced the swelling in the joint capsule and she feels that now her hip is mobilie in the joint more She did get good ROM after the injection, she is doing the hip mobilizations with the belt and this help. She has stopped doind pigeon pose as she feels that maybe it is pushing on the hip She still feels that anerior hip with marches, she still feels the lateral knee with walking She is wearing a sleeve on her left knee and that helps and she is wearing her custom orthotics SHe feels if she had a MRI it may help her decide if she would benefit from prolotherapy. Treatment Goals Patient/Caregiver Goals her goals are to work on strength and stability PT-OP-C Subjective Start: 06/30/22 13:07 Freq: Status: Active Protocol: Document 12/14/22 14:17 [facility] (Rec: 12/14/22 15:41 [facility] [id number]) OP-PT Subjective Patient Comments Patient Comments Maura has a appt with Dr Patterson next week for prolotherapy consult. She notes she did well on her trip . The hyper volt really seems to help, she is doing yoga and the bike. She feels like with all of these techniques she is having agood success managing her symptoms. SHe does still occasionally still get a specific hip pain. PT-OP-F Manual Assessment Start: 06/30/22 13:07 Freq: Status: Active Protocol: Document 06/30/22 11:15 [facility] (Rec: 07/06/22 08:34 [facility] [id number]) Manual Assessments Soft Tissue Assessment Soft Tissue Mobility Assessment myofascial tightness in the ITB, adductors, iliopsoas, quad L>R anterior hip. Joint Mobility Assessment Joint Mobility Assessment decreased anterior joint mobility of the left hip for ER, pt is also limited in hip flexion and hip abduction on the left PT-OP-G Mobility & Gait Start: 06/30/22 13:07 Freq: Status: Active Protocol: Document 06/30/22 11:15 [facility] (Rec: 07/06/22 08:34 [facility] [id number]) OP Mobility Evaluation Functional Movements Other Functional Movements pt is limited with standing hip flexion as this is tight and restricted and causes pain , pt is limited with her walking distance due to tightness and pain following PT-OP-J Posture/Palpation/Skin Start: 06/30/22 13:07 Freq: Status: Active Protocol: Document 06/30/22 11:15 [facility] (Rec: 07/06/22 08:34 [facility] [id number]) Palpation Assessment Location left anterior hip Palpation Findings Soft Tissue Tightness,Spasm, Muscle Guarding,Tenderness left lateral hip Palpation Findings Soft Tissue Tightness,Spasm, Muscle Guarding,Tenderness Palpation Details ITB proximal attachments PT-OP-K Range of Motion Start: 06/30/22 13:07 Freq: Status: Active Protocol: Document 06/30/22 11:15 [facility] (Rec: 07/06/22 08:34 [facility] [id number]) Hip Goniometric Range of Motion Hip Left Hip ROM WFL No Testing Position Supine Flexion w/Knee Flexed 100 Straight Leg Raise 55 Extension 0 Abduction 10 External Rotation 8 Hip ROM Limitations Hip ROM Limitations Soft Tissue Tightness,Pain Comments OA in the left hip joint PT-OP-M Strength Start: 06/30/22 13:07 Freq: Status: Active Protocol: Document 06/30/22 11:15 [facility] (Rec: 07/06/22 08:34 [facility] [id number]) Hip Strength Hip Manual Muscle Testing Left Flexion (L2) 3- Fair- Abduction 3- Fair- External Rotation 3- Fair- PT-OP-T Assessment and Plan Start: 06/30/22 13:07 Freq: Status: Active Protocol: Document 02/08/23 08:55 [facility] (Rec: 02/08/23 08:57 [facility] [id number]) Physical Therapy Assessment Assessment Summary Assessment Maura has been using all the tools at home to manage her symptoms. I added in left sided quad strengthening today for her as she feels she is getting weaker in the left quad. She does have a consult with Dr Patterson for prolotherapy to see if stabilization at the hip and or knee may help reduce muscle tension from her quad and ITB . She will be discharged at this time for further work up. Physical Therapy Plan Discharge Physical Therapy Discharge Reasons Plateau in Progress
== END 2023-02-11 08:22 | disposition home or self-care (01) ==
LOC: PHYS 14:15
PROVIDERS: Family Provider Student in an Organized Health Care Education/Training Program; PCP Student in an Organized Health Care Education/Training Program; Referring Provider Student in an Organized Health Care Education/Training Program; Visit Provider Student in an Organized Health Care Education/Training Program
DX: M25.562 Pain in left knee (principal); G89.29 Other chronic pain; M76.32 Iliotibial band syndrome, left leg; M25.552 Pain in left hip
CPT/HCPCS: 97110; 97140; 97161; 97535

== ENCOUNTER → 2023-01-07 15:12 | Outpatient (CLI) | payer OTHER, SELFPAY ==
--- NOTE | 2023-01-07 15:14 | DI.MRI.S_ITS ---
PROCEDURE: MR HIP LT WO CON INDICATIONS: hip djd with probable labral tear TECHNIQUE: Noncontrast coronal T1 spin echo and STIR through the bony pelvis. Coronal and axial T2 fast spin echo with fat saturation, sagittal T1 spin echo, and oblique axial T2 fast spin echo with fat saturation through the hip. COMPARISON: None. FINDINGS: Image quality: Excellent. Bones and joints: Asymmetric moderate to severe left hip joint osteoarthritic changes are seen with significant joint space narrowing, subchondral sclerosis and lateral marginal osteophyte formation. No marrow edema. No fracture or dislocation. No avascular necrosis of the femoral heads. The visualized lower lumbar spine appears normally aligned. Tendons and ligaments: The gluteus medius and minimus tendons appear thickened at their insertions on greater trochanter no without associated muscle atrophy. The nearby proximal iliotibial band also appears intact. The iliopsoas tendon appears intact, without adjacent bursal fluid collections or evidence for impingement syndrome. The origin of the hamstring tendon is also thickened at the ischial tuberosity. Labrum and cartilage: There is diffuse loss of articulating cartilage over left femoral head with extensive fraying and signal abnormality throughout superior labrum extending from 10 to 1 o'clock position. There is a lobulated and septated cystic structure adjacent to superior labrum and measures up to 2.8 x 2.8 x 2.4 cm in size likely represent perilabral cyst. Soft tissues: Visualized muscles demonstrate normal bulk and internal signal. Quadratus femoris muscle demonstrates no internal edema to suggest ischiofemoral impingement. The proximal sciatic neurovascular bundle appears normal adjacent to the hamstring tendons. No free pelvic fluid. Bladder wall thickness is normal. Genitourinary structures and bowel loops appear normal where visualized. IMPRESSION: 1. Asymmetric moderate to severe left hip joint osteoarthritis. No fracture or dislocation. No evidence of avascular necrosis. 2. Distal left gluteus medius and minimus tendinosis. Tendinosis involving hamstring tendon origins at ischial tuberosity. No other muscle or tendon signal abnormalities. 3. Suggestion of extensive superior labral tear extending from 10-1 o'clock position. 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 Dictated by: Gio Jones M.D. on 01/07/2023 at 19:37 Approved by: Gio Jones M.D. on 01/07/2023 at 19:44
== END ==
PROVIDERS: Family Provider Student in an Organized Health Care Education/Training Program; PCP Nurse Practitioner; Referring Provider Physical Medicine & Rehabilitation; Visit Provider Physical Medicine & Rehabilitation
DX: M25.852 Other specified joint disorders, left hip (principal); M16.12 Unilateral primary osteoarthritis, left hip; Q79.60 Ehlers-Danlos syndrome, unspecified
CPT/HCPCS: 73721

== ENCOUNTER → 2023-01-24 13:00 | Outpatient (CLI) | payer OTHER, SELFPAY ==
--- NOTE | 2023-01-24 13:02 | DI.MG.S_ITS ---
BILATERAL DIGITAL SCREENING MAMMOGRAM 3D/2D WITH CAD: 01/24/2023 CLINICAL: Routine screening. Comparison is made to exams dated: 01/21/2022 mammogram, 01/09/2021 mammogram, and 01/05/2020 mammogram - [facility]. Both breasts are heterogeneously dense, which may obscure small masses (category c / 51-75% glandular tissue). Current study was also evaluated with a Computer Aided Detection (CAD) system. There are benign calcifications in the right breast. No significant masses, calcifications, or other findings are seen in either breast. There has been no significant interval change. IMPRESSION: BENIGN There is no mammographic evidence of malignancy. A 1 year screening mammogram is recommended. Based on the Tyrer Cuzick model (a risk assessment model) the patient's lifetime risk is 9.7% and her 10 year risk is 4.5%. According to the ACR, ACS, and NCCN guidelines, an annual breast MRI exam along with mammogram is recommended if the patient's lifetime risk is 20% or greater. This exam was interpreted at Station ID: [id number]. NOTE: For mammograms, a report in lay terms will be sent to the patient. Approximately 15% of breast malignancies will not be visualized mammographically. In the management of a palpable breast mass, a negative mammogram must not discourage biopsy of a clinically suspicious lesion. Electronically Signed By: Margarita newsome/lenora:01/25/2023 09:11:01 letter sent: Normal Exam ACR BI-RADS Category 2: Benign Finding(s) 3342F
== END ==
PROVIDERS: Family Provider Student in an Organized Health Care Education/Training Program; PCP Nurse Practitioner; Referring Provider Nurse Practitioner; Visit Provider Nurse Practitioner
DX: Z12.31 Encounter for screening mammogram for malignant neoplasm of breast (principal)
CPT/HCPCS: 77063; 77067

== ENCOUNTER → 2023-05-04 14:22 | Outpatient (CLI) | payer OTHER, SELFPAY ==
[2023-05-04 15:41] LABS: BUN Creatinine Ratio 25.3 (6-22); Blood Urea Nitrogen 19 mg/dL (7-17); Calcium 9.9 mg/dL (8.4-10.2); Carbon Dioxide 33 mmol/L (22-32); Chloride 102 mmol/L (98-107); Estimated Glomerular Filt Rate > 60 mL/min (>60); Glucose 97 mg/dL (80-110); HEMOLYSIS < 15 (0-50); Potassium 4.6 mmol/L (3.4-5.1); Sodium 140 mmol/L (137-145)
[2023-05-04 16:07] LABS: Basophils Absolute Auto 100 /uL (0-100); Basophils Percent Auto 1.1 % (0-2); Eosinophils Absolute Auto 300 /uL (0-450); Eosinophils Percent Auto 3.9 % (2-4); Hematocrit 40.1 % (36-46); Hemoglobin 13.1 g/dL (12.0-16.0); Lymphocytes Absolute Auto 1400 /uL (1100-4500); Lymphocytes Percent Auto 19.4 % (25-40); Mean Corpuscular HGB Conc 32.8 % (30-36); Mean Corpuscular Hemoglobin 29.8 PG (26-34); Monocytes Absolute Auto 500 /uL (0-900); Monocytes Percent Auto 6.9 % (3-14); Neutrophils Absolute Auto 5100 /uL (1500-7000); Neutrophils Percent Auto 68.7 % (50-75); Platelet Count 577 X10^3/uL (150-400); Red Cell Distribution Width 13.4 % (11.6-14.8); White Blood Cell Count 7.5 X10^3/uL (4.5-11.0)
[2023-05-04 16:10] LABS: Add Manual Diff / Slide Review SLIDE REVIEW
[2023-05-04 16:44] LABS: RBC Morphology Normal Morphology
== END ==
PROVIDERS: Family Provider Nurse Practitioner; PCP Nurse Practitioner; Referring Provider Student in an Organized Health Care Education/Training Program; Visit Provider Student in an Organized Health Care Education/Training Program
DX: Z01.818 Encounter for other preprocedural examination (principal)
CPT/HCPCS: 36415; 80048; 85025

== ENCOUNTER → 2023-06-02 13:55 | Outpatient (CLI) | payer OTHER, SELFPAY ==
[2023-06-02 14:36] LABS: Hematocrit 29.8 % (36-46); Hemoglobin 10.1 g/dL (12.0-16.0)
[2023-06-02 15:07] LABS: BUN Creatinine Ratio 29.4 (6-22); Blood Urea Nitrogen 20 mg/dL (7-17); Calcium 9.3 mg/dL (8.4-10.2); Carbon Dioxide 29 mmol/L (22-32); Chloride 101 mmol/L (98-107); Estimated Glomerular Filt Rate > 60 mL/min (>60); Glucose 104 mg/dL (80-110); HEMOLYSIS < 15 (0-50); Potassium 4.7 mmol/L (3.4-5.1); Sodium 136 mmol/L (137-145)
[2023-06-02 15:44] LABS: Appearance Urine UA CLEAR; Bilirubin Urine UA NEGATIVE (NEGATIVE); Color Urine UA YELLOW; Glucose Urine UA NEGATIVE (Negative); Ketones Urine UA NEGATIVE (NEGATIVE); Leukocyte Esterase Urine UA NEGATIVE (NEGATIVE); Nitrite Urine UA NEGATIVE (Negative); Occult Blood Urine UA NEGATIVE (Negative); Protein Urine UA NEGATIVE (Negative); Specific Gravity Urine UA <=1.005 (1.000-1.035); Urobilinogen Urine UA 0.2 E.U./dL (0.2)
[2023-06-02 15:45] LABS: pH Urine UA 5.5 (4.5-8.0)
[2023-06-02 15:51] LABS: Bacteria Urine Occasional (0-1); Culture Indicated Urine Cult Not Indicated; RBC Urine 0-1/HPF (0-5/HPF); Squamous Epithelial Cell Urine 0-1 /HPF (0-5/HPF); Urine Volume 10mL (spun); WBC Urine 0-1/HPF (0-5/HPF)
[2023-06-02 16:40] LABS: Creatinine Urine Random 14.7 mg/dL; Protein (Total) Urine Random 14 mg/dL (0-12); Protein Creatinine Ratio Urine 0.95 GRAM/24H
== END ==
PROVIDERS: Family Provider Nurse Practitioner; PCP Nurse Practitioner; Referring Provider Student in an Organized Health Care Education/Training Program; Visit Provider Student in an Organized Health Care Education/Training Program
DX: N05.9 Unspecified nephritic syndrome with unspecified morphologic changes (principal); D70.9 Neutropenia, unspecified; N30.00 Acute cystitis without hematuria; R80.9 Proteinuria, unspecified
CPT/HCPCS: 36415; 80048; 81001; 82570; 84156; 85014; 85018

== ENCOUNTER → 2023-06-20 09:25 | Outpatient (CLI) | payer OTHER, SELFPAY ==
[2023-06-20 10:29] LABS: Hematocrit 34.8 % (36-46); Hemoglobin 11.6 g/dL (12.0-16.0); Mean Corpuscular HGB Conc 33.4 % (30-36); Mean Corpuscular Hemoglobin 29.4 PG (26-34); Mean Corpuscular Volume 88.2 fL (80-100); Platelet Count 638 X10^3/uL (150-400); Red Blood Cell Count 3.95 X10^6/uL (4.0-5.2); Red Cell Distribution Width 13.4 % (11.6-14.8); White Blood Cell Count 5.7 X10^3/uL (4.5-11.0)
[2023-06-20 10:39] LABS: Hemoglobin A1C% w Est Avg Glu 5.5 % (4.0-6.0)
[2023-06-20 10:54] LABS: Alanine Aminotransferase 26 IU/L (<35); Albumin 4.6 g/dL (3.5-5.0); Albumin Globulin Ratio 1.8 (1.0-2.8); Alkaline Phosphatase 68 U/L (38-126); Aspartate Aminotransferase 25 IU/L (14-36); BUN Creatinine Ratio 17.6 (6-22); Bilirubin Total 0.4 mg/dL (0.2-1.3); Blood Urea Nitrogen 13 mg/dL (7-17); Calcium 9.5 mg/dL (8.4-10.2); Carbon Dioxide 30 mmol/L (22-32); Chloride 105 mmol/L (98-107); Cholesterol 154 mg/dL (140-199); Estimated Glomerular Filt Rate > 60 mL/min (>60); Globulin 2.6 g/dL (1.7-4.1); Glucose 111 mg/dL (80-110); HDL Cholesterol 49 mg/dL (40-60); HEMOLYSIS < 15 (0-50); LDL Cholesterol Calculated 71 mg/dL (<100); Potassium 4.2 mmol/L (3.4-5.1); Sodium 141 mmol/L (137-145); Total Protein 7.2 g/dL (6.3-8.2); Triglycerides 171 mg/dL (35-150)
== END ==
PROVIDERS: Family Provider Nurse Practitioner; PCP Nurse Practitioner; Referring Provider Nurse Practitioner; Visit Provider Nurse Practitioner
DX: E78.00 Pure hypercholesterolemia, unspecified (principal); I10 Essential (primary) hypertension; R73.01 Impaired fasting glucose; D64.9 Anemia, unspecified; Z79.899 Other long term (current) drug therapy
CPT/HCPCS: 36415; 80053; 80061; 83036; 85027

== ENCOUNTER → 2023-09-30 16:22 | Outpatient (CLI) | payer OTHER, SELFPAY ==
[2023-09-30 17:16] LABS: Add Manual Diff / Slide Review NO; Basophils Absolute Auto 100 /uL (0-100); Basophils Percent Auto 0.8 % (0-2); Eosinophils Absolute Auto 200 /uL (0-450); Eosinophils Percent Auto 3.1 % (2-4); Hematocrit 39.8 % (36-46); Hemoglobin 13.1 g/dL (12.0-16.0); Lymphocytes Absolute Auto 1200 /uL (1100-4500); Lymphocytes Percent Auto 14.7 % (25-40); Mean Corpuscular Hemoglobin 27.9 PG (26-34); Mean Corpuscular Volume 84.4 fL (80-100); Monocytes Absolute Auto 400 /uL (0-900); Monocytes Percent Auto 5.5 % (3-14); Neutrophils Absolute Auto 6000 /uL (1500-7000); Neutrophils Percent Auto 75.9 % (50-75); Platelet Count 569 X10^3/uL (150-400); Red Blood Cell Count 4.71 X10^6/uL (4.0-5.2); Red Cell Distribution Width 14.1 % (11.6-14.8)
[2023-09-30 17:31] LABS: HEMOLYSIS < 15 (0-50); Iron 99 ug/dL (37-170)
[2023-09-30 17:32] LABS: Alanine Aminotransferase 24 IU/L (<35); Albumin 4.3 g/dL (3.5-5.0); Albumin Globulin Ratio 1.6 (1.0-2.8); Alkaline Phosphatase 61 U/L (38-126); Aspartate Aminotransferase 26 IU/L (14-36); BUN Creatinine Ratio 25.3 (6-22); Bilirubin Total 0.3 mg/dL (0.2-1.3); Blood Urea Nitrogen 20 mg/dL (7-17); Calcium 9.2 mg/dL (8.4-10.2); Carbon Dioxide 29 mmol/L (22-32); Chloride 100 mmol/L (98-107); Estimated Glomerular Filt Rate > 60 mL/min (>60); Globulin 2.7 g/dL (1.7-4.1); Glucose 137 mg/dL (80-110); HEMOLYSIS < 15 (0-50); Sodium 135 mmol/L (137-145)
[2023-09-30 17:43] LABS: Percent Iron Saturation 25 % (15-50); Total Iron Binding Capacity 393 ug/dL (265-497); Transferrin 318 mg/dL (206-381)
[2023-09-30 17:49] LABS: Vitamin D 25 Hydroxy (D3) 34.7 ng/mL (30.0-100.0)
[2023-09-30 17:50] LABS: Free T3, Triiodothyronine Free 3.27 pg/mL (2.77-5.27); Free T4, Direct Thyroxine 0.94 ng/dL (0.78-2.19)
[2023-09-30 18:23] LABS: Vitamin B12 714 pg/mL (239-931)
== END ==
LOC: LAB 16:22
PROVIDERS: Family Provider Nurse Practitioner; PCP Nurse Practitioner; Referring Provider Nurse Practitioner; Visit Provider Nurse Practitioner
DX: D64.9 Anemia, unspecified (principal); E03.9 Hypothyroidism, unspecified; M79.10 Myalgia, unspecified site; R53.83 Other fatigue
CPT/HCPCS: 36415; 80053; 82306; 82607; 83540; 83550; 84439; 84443; 84481; 85025

== ENCOUNTER → 2023-12-03 13:49 | Outpatient (CLI) | payer OTHER, SELFPAY ==
--- NOTE | 2023-12-03 13:50 | DI.CT.S_ITS ---
PROCEDURE: CT HIP LEFT WITHOUT CON INDICATIONS: HIP PAIN,BURSITIS/TENDINITIS SUSPECTED TECHNIQUE: Noncontrast 3 mm axial sections acquired through the bony pelvis. Additional 3 mm axial sections acquired through the symptomatic hip joint, with coronal and sagittal reformats. COMPARISON: None. FINDINGS: Image quality: Excellent. Bones: Moderate lower lumbar spine arthropathy. The sacrum is intact. Mild degenerative changes of bilateral sacroiliac joint. Mild degenerative change of the pubic symphysis. No acute fracture or dislocation of the right hip. Status post left total hip arthroplasty, in near anatomic alignment. No hardware complication. Soft tissues: The uterus is not definitely visualized, likely surgically absent. Sigmoid colon diverticulosis. There is suggestion of mild fat stranding about the distal sigmoid colon, about the left posterior acetabulum (series 5, image 43), which may be secondary to diverticulitis versus artifactual given subjacent streak artifact. Large stool burden in the cecum and ascending colon. No bowel obstruction. No significant iliopsoas bursitis. The left adductors, hamstring, left gluteal minimus and medius muscle and tendons are grossly unremarkable. IMPRESSION: 1. Status post left total hip arthroplasty. No hardware complication. 2. Suggestion of mild fat stranding about the distal sigmoid colon, raising concern for diverticulitis versus artifacts. Recommend clinical correlation. Dictated by: Gaby Gonzalez M.D. on 12/05/2023 at 11:27 Approved by: Gaby Gonzalez M.D. on 12/05/2023 at 11:45
== END ==
PROVIDERS: Family Provider Nurse Practitioner; PCP Family Medicine; Referring Provider Student in an Organized Health Care Education/Training Program; Visit Provider Student in an Organized Health Care Education/Training Program
DX: M47.816 Spondylosis without myelopathy or radiculopathy, lumbar region (principal); M25.552 Pain in left hip; K57.30 Diverticulosis of large intestine without perforation or abscess without bleeding; Z96.642 Presence of left artificial hip joint
CPT/HCPCS: 73700

== ENCOUNTER → 2024-01-26 13:20 | Outpatient (CLI) | payer OTHER, SELFPAY ==
--- NOTE | 2024-01-26 13:22 | DI.MG.S_ITS ---
BILATERAL DIGITAL SCREENING MAMMOGRAM 3D/2D WITH CAD: 01/26/2024 CLINICAL: Routine screening. Comparison is made to exams dated: 01/24/2023 mammogram, 01/21/2022 mammogram, and 01/09/2021 mammogram - [facility]. The breasts are heterogeneously dense, which may obscure small masses (category c / 51-75% glandular tissue). Current study was also evaluated with a Computer Aided Detection (CAD) system. There are benign calcifications in the right breast. No significant masses, calcifications, or other findings are seen in either breast. There has been no significant interval change. IMPRESSION: BENIGN There is no mammographic evidence of malignancy. A 1 year screening mammogram is recommended. Based on the Tyrer Cuzick model (a risk assessment model) the patient's lifetime risk is 9.4% and her 10 year risk is 4.5%. According to the ACR, ACS, and NCCN guidelines, an annual breast MRI exam along with mammogram is recommended if the patient's lifetime risk is 20% or greater. This exam was interpreted at Station ID: [id number]. NOTE: For mammograms, a report in lay terms will be sent to the patient. Approximately 15% of breast malignancies will not be visualized mammographically. In the management of a palpable breast mass, a negative mammogram must not discourage biopsy of a clinically suspicious lesion. Electronically Signed By: Félix moreno/lenora:01/27/2024 16:45:43 letter sent: Normal Exam ACR BI-RADS Category 2: Benign
== END ==
PROVIDERS: PCP Nurse Practitioner; Referring Provider Nurse Practitioner; Visit Provider Nurse Practitioner
DX: Z12.31 Encounter for screening mammogram for malignant neoplasm of breast (principal); R92.333 Mammographic heterogeneous density, bilateral breasts
CPT/HCPCS: 77063; 77067

== ENCOUNTER → 2024-02-17 16:13 | Outpatient (CLI) | payer OTHER, SELFPAY ==
[2024-02-17 16:58] LABS: Hematocrit 42.3 % (36-46); Hemoglobin 13.9 g/dL (12.0-16.0)
[2024-02-17 17:36] LABS: Blood Urea Nitrogen 19 mg/dL (7-17); Calcium 9.9 mg/dL (8.4-10.2); Carbon Dioxide 30 mmol/L (22-32); Chloride 101 mmol/L (98-107); Estimated Glomerular Filt Rate > 60 mL/min (>60); Glucose 100 mg/dL (80-110); HEMOLYSIS < 15 (0-50); Potassium 4.7 mmol/L (3.4-5.1); Sodium 139 mmol/L (137-145)
[2024-02-17 18:14] LABS: Creatinine Urine Random 12.45 mg/dL; Protein (Total) Urine Random 16 mg/dL (0-12); Protein Creatinine Ratio Urine 1.28 GRAM/24H
[2024-02-19 10:40] LABS: Parathyroid Hormone Int 42 pg/mL (15-65)
== END ==
PROVIDERS: PCP Nurse Practitioner; Referring Provider Student in an Organized Health Care Education/Training Program; Visit Provider Student in an Organized Health Care Education/Training Program
DX: N05.9 Unspecified nephritic syndrome with unspecified morphologic changes (principal); D70.9 Neutropenia, unspecified; D63.1 Anemia in chronic kidney disease; N25.81 Secondary hyperparathyroidism of renal origin; R80.9 Proteinuria, unspecified
CPT/HCPCS: 36415; 80048; 82570; 83970; 84156; 85014; 85018

== ENCOUNTER 2024-02-21 13:45 | Outpatient (RCR) | payer OTHER, SELFPAY ==
--- NOTE | 2023-05-31 16:00 | PT.OIE ---
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) Endometriosis (~1971) Fibroids (~1989) Heavy menstrual period (1971) Hyperlipemia (2009) Hypertension (2008) Hypothyroidism (1993) Infertility (Unknown) Joint pain (~1989) Kidney disease (Unknown) Left hip impingement syndrome Measles (~1959) Mumps (~1959) Painful menstrual periods (Unknown) Proteinuria (1971) Past Surgical History (Last Reviewed 04/21/23 @ 16:18 by MARI Barrera) History of total abdominal hysterectomy and bilateral salpingo-oophorectomy (2002) Hx of laparoscopy (~1988) Visit Care Team Role Provider Type MARI Barrera Family Provider Advanced Cable Weaver Primary Care Provider Specialty: Family Practice Address: [address] [place] [address], [id number] Email: [email or web address] Montrell Waite MD Attending Provider Non-Staff Referring Provider Specialty: Orthopedic Surgery Address: [address] [place] [address] [place], [address] Fax: Email: Physical Therapy Initial Evaluation PT-OP-A Visit Information Start: 05/31/23 11:25 Freq: Status: Active Protocol: Document 05/31/23 13:05 [facility] (Rec: 05/31/23 17:15 [facility] [id number]) Out-Patient Physical Therapy Visit Information Visit Information Visit Type Initial Evaluation Visit Start Time 13:00 Visit Stop Time 13:45 Visit Number 1 Evaluation Information Evaluation Date 05/31/23 Precautions Precautions Anterior hip precautions PT-OP-B Current Condition Start: 05/31/23 11:25 Freq: Status: Active Protocol: Document 05/31/23 13:05 [facility] (Rec: 05/31/23 13:48 [facility] [id number]) Current Condition History of Current Condition Onset Date 05/25/23 Current Complaints s/p left RONNY, decreased hip ROM, pain, decreased strength History of Current Condition May 24 anterior approach total hip replacement pt is using a fww with sitting down or standing up she can feel incisional pain that feels burning but after a minute after changing positions she wont feel it as strong. She rates it as a 6/ 10 zing with positional change Walking is a 3-4/10 but if she tries to take too big of a step she jay get pain She has been wearing thigh highs and has had mild swelling only she is using a fww and its primarily to not over do. She has 3 stairs to get in at her house with a railing and has been doing fine with these. She is 6 days s/p hip surgery today Treatment Goals Patient/Caregiver Goals Pt's goals are to improve hip ROM, decrease pain, increase strength and walking distance PT-OP-C Subjective Start: 05/31/23 11:25 Freq: Status: Active Protocol: Document 05/31/23 13:00 [facility] (Rec: 06/01/23 13:05 [facility] [id number]) Patient Questionnaires Lower Extremity Functional Scale LEFS Score 24 LEFS Impairment 60 to 79% Impaired (Score 17- 31) OP-PT Pain Assessment Pain Assessment Grid Paper Pain Assessment Grid Completed Yes Location left anterior hip Intensity 7 Scale Used Numeric (0 - 10) Frequency Intermittent Pain Duration transitional movements like sit-stand Pain Aggravating Factors Standing,Sitting Pain Alleviating Factors Cold Other Pain Alleviating Factors pt reports pain is primarily with sit-stand or change of position. PT-OP-F Manual Assessment Start: 05/31/23 11:25 Freq: Status: Active Protocol: Document 05/31/23 13:00 [facility] (Rec: 06/01/23 13:05 [facility] [id number]) Manual Assessments Soft Tissue Assessment Soft Tissue Mobility Assessment myofascial tightness of the left quad and anterior hip, pt still has her bandage on for 2 weeks so fascial tissue will need further assessment once bandage is removed PT-OP-G Mobility & Gait Start: 05/31/23 11:25 Freq: Status: Active Protocol: Document 05/31/23 13:00 [facility] (Rec: 06/01/23 13:05 [facility] [id number]) OP Mobility Evaluation Bed Mobility Rolling ind Supine to and from Sit ind Transfers Sit to Stand IND and uses FWW Bed to Chair Transfers IND Car Transfers IND Floor Transfers not attempted OP Gait Assessment Gait Gait Assistance Required: Standby Assistance Distance (Feet) 50 Able to Maintain Weight Bearing Status Yes During Gait Assistive Devices Assistive Device Front Wheeled Walker Gait Deviations General Gait Pattern Decreased Stride Length,Step- to Gait Factors Limiting Gait Function Factors Limiting Gait Function Decreased Activity Tolerance, Decreased Strength,Limited Range of Motion,Pain PT-OP-K Range of Motion Start: 05/31/23 11:25 Freq: Status: Active Protocol: Document 05/31/23 13:00 [facility] (Rec: 06/01/23 13:05 [facility] [id number]) Hip Goniometric Range of Motion Hip Left Hip ROM WFL No Testing Position Supine Flexion w/Knee Flexed 90 Abduction 5 Comments pt has anterior hip precautions of no hip extension or ER. She has pain with hip abduction and knee flexion greater than 90 degrees. It is difficult for her to extend her hip flat onto the table and she needs a towel roll under her left knee especially at first Right Hip ROM WFL Yes Testing Position Supine Hip ROM Limitations Hip ROM Limitations Soft Tissue Tightness,Pain, Swelling Comments ANTERIOR HIP PRECAUTIONS PT-OP-M Strength Start: 05/31/23 11:25 Freq: Status: Active Protocol: Document 05/31/23 13:00 [facility] (Rec: 06/01/23 13:05 [facility] [id number]) Hip Strength Hip Manual Muscle Testing Left Comments not formaly tested due to s/p RONNY 6 days ago but decreased AROM of the left hip PT-OP-Q Treatments Start: 05/31/23 11:25 Freq: Status: Active Protocol: Document 05/31/23 13:00 [facility] (Rec: 05/31/23 17:15 [facility] [id number]) Therapeutic Exercises Supine Exercises AAROM hip abduction in supine Reps/Minutes x 10 Comments pt educated on bracing withTA first prior to hip abduction quad sets Reps/Minutes x 10 heel slides with abdominal bracing Reps/Minutes x 10 reps Standing Exercises standing weight shifts with FWW Reps/Minutes 5-10 reps Comments cues to weight shift as tolerated PT-OP-T Assessment and Plan Start: 05/31/23 11:25 Freq: Status: Active Protocol: Document 05/31/23 13:00 [facility] (Rec: 06/01/23 13:05 [facility] [id number]) Physical Therapy Assessment Goals 4 Impairment Maura scores a 24 on the LE functional scale which places her at 60-79 percent impaired Lagging Machine Operator Goal (LTG) Maura score on the LE functional scale is improved by 10 points or greater to reduce functional impairment LTG Duration 8 weeks 3 Impairment Decreased hip strength following L RONNY Short Term Goal (STG) Maura is educated on a HEP for improved hip strength STG Duration 4 weeks Senior Care Goal (LTG) Maura is independent with a HEP and demonstrates improvement with hip strength LTG Duration 8 weeks 2 Impairment Decreased hip ROM s/p L RONNY and pt has precautions of no hip extension or hip ER Short Term Goal (STG) Maura is educated on a home program to improve hip ROM STG Duration 5 weeks Senior Care Goal (LTG) Maura presents with improved hip ROM into hip flexion and abduction LTG Duration 8 weeks 1 Impairment left sided hip pain s/p RONNY that ranges from 2 at rest to 7/10 with positional changes Senior Care Goal (LTG) Maura reports a overall reduction in pain of the left hip LTG Duration 8 weeks Assessment Summary Assessment Maura is a 62 year old female who is 6 days s/p L RONNY with anterior approach. She underwent hip surgery at [facility] and was able to DC home day of surgery. She has been using a FWW for gait and feels she is doing well with her walker. She has 3 steps to get into her house with railing and getting up and down these steps has been fine for her. She is following her anterior hip precautions and is working on the HEP given to her for s/p RONNY. She experiences intermittent pain especially with change of position from sitting to standing but Maura notes this is temporary only and pain decreases a few min after the transitional positional change . She rates her pain at rest as a 2/5 and pain can increase with walking to a 4-5/10 and can get as high as a 7/10 with transitional movements. Maura has been using ice and feels that she has had minimal swelling. She has her bandage on for 2 weeks until she has her post op appointment. With exam Maura has decreased hip ROM into hip flexion and abduction . It is difficult to lay her left leg flat on the table and she feels better with a towel under her knee. Her HEP was reviewed today and she was educated on bracing with her core for heel slides and supine AROM hip abduction. Hip abduction is the most limited and I did work with KRISTA today for Maura and she tolerated this well. She does have some muscle tightness and fascial tightness in the quad on the left and treatment will work into fascial release and scar release once her incision has healed. She is a good candidate for PT. Physical Therapy Plan Frequency and Duration Frequency of Treatment 2x/Week Duration of treatment (weeks) 8 Plan of Care Start Date 05/31/23 Plan of Care End Date 07/26/23 Therapeutic Interventions Therapeutic Interventions Home Exercise Program,Manual Therapy,Self-Care/Home Management,Soft Tissue Mobilization,Therapeutic Exercises Modalities Cold Pack/Ice Massage Next Visit Focus/Plan Next Note Type Treatment Note Next Visit Plan Review HEP, work on hip abduction and weight shifting onto the left leg. Gait training with fww
--- NOTE | 2023-05-31 16:00 | PT.OPPOC ---
Physical, Occupational & Speech Therapy At [facility] Current Diagnoses Pain in left hip (05/31/23) Stiffness of unspecified hip, not elsewhere classified (05/31/23) Muscle weakness (generalized) (05/31/23) Presence of left artificial hip joint (05/31/23) Visit Care Team Role Provider Type MARI Barrera Family Provider Advanced Rn Camp Primary Care Provider Specialty: Family Practice Address: [address] [place] [address], [address] Email: [email or web address] Montrell Waite MD Attending Provider Non-Staff Referring Provider Specialty: Orthopedic Surgery Address: [address] [place], [place] [address]marcella Diehl, [place], [address] Fax: Email: Plan Of Care PT-OP-T Assessment and Plan Start: 05/31/23 11:25 Freq: Status: Active Protocol: Document 05/31/23 13:00 [facility] (Rec: 06/01/23 13:05 [email or web address] [id number]) Physical Therapy Assessment Goals 4 Impairment Maura scores a 24 on the LE functional scale which places her at 60-79 percent impaired Halfway Goal (LTG) Maura score on the LE functional scale is improved by 10 points or greater to reduce functional impairment LTG Duration 8 weeks 3 Impairment Decreased hip strength following L RONNY Short Term Goal (STG) Maura is educated on a HEP for improved hip strength STG Duration 4 weeks Candy Feeder Goal (LTG) Maura is independent with a HEP and demonstrates improvement with hip strength LTG Duration 8 weeks 2 Impairment Decreased hip ROM s/p L RONNY and pt has precautions of no hip extension or hip ER Short Term Goal (STG) Maura is educated on a home program to improve hip ROM STG Duration 5 weeks Candy Feeder Goal (LTG) Maura presents with improved hip ROM into hip flexion and abduction LTG Duration 8 weeks 1 Impairment left sided hip pain s/p RONNY that ranges from 2 at rest to 7/10 with positional changes Candy Feeder Goal (LTG) Maura reports a overall reduction in pain of the left hip LTG Duration 8 weeks Assessment Summary Assessment Maura is a 62 year old female who is 6 days s/p L RONNY with anterior approach. She underwent hip surgery at [facility] and was able to DC home day of surgery. She has been using a FWW for gait and feels she is doing well with her walker. She has 3 steps to get into her house with railing and getting up and down these steps has been fine for her. She is following her anterior hip precautions and is working on the HEP given to her for s/p RONNY. She experiences intermittent pain especially with change of position from sitting to standing but Maura notes this is temporary only and pain decreases a few min after the transitional positional change . She rates her pain at rest as a 2/5 and pain can increase with walking to a 4-5/10 and can get as high as a 7/10 with transitional movements. Maura has been using ice and feels that she has had minimal swelling. She has her bandage on for 2 weeks until she has her post op appointment. With exam Maura has decreased hip ROM into hip flexion and abduction . It is difficult to lay her left leg flat on the table and she feels better with a towel under her knee. Her HEP was reviewed today and she was educated on bracing with her core for heel slides and supine AROM hip abduction. Hip abduction is the most limited and I did work with KRISTA today for Maura and she tolerated this well. She does have some muscle tightness and fascial tightness in the quad on the left and treatment will work into fascial release and scar release once her incision has healed. She is a good candidate for PT. Physical Therapy Plan Frequency and Duration Frequency of Treatment 2x/Week Duration of treatment (weeks) 8 Plan of Care Start Date 05/31/23 Plan of Care End Date 07/26/23 Therapeutic Interventions Therapeutic Interventions Home Exercise Program,Manual Therapy,Self-Care/Home Management,Soft Tissue Mobilization,Therapeutic Exercises Modalities Cold Pack/Ice Massage Next Visit Focus/Plan Next Note Type Treatment Note Next Visit Plan Review HEP, work on hip abduction and weight shifting onto the left leg. Gait training with fww Plan of Care Dates Plan of Care Start Date 05/31/23 Plan of Care End Date 07/26/23 Electronically Signed by: Norah Yu, PT 06/01/23 [id number] If you are in agreement with this Plan of Care, please return a signed and dated copy. I have reviewed this Plan of Care and certify that the skilled therapy services above are required to meet the patient?s needs. Physician Signature Date Printed Name and Credentials Clinical Instructor Signature Printed Name and Credentials
--- NOTE | 2023-06-02 14:49 | PT.OTN ---
Current Diagnoses Pain in left hip (06/02/23) Stiffness of unspecified hip, not elsewhere classified (06/02/23) Muscle weakness (generalized) (06/02/23) Presence of left artificial hip joint (06/02/23) Physical Therapy Treatment Note PT-OP-A Visit Information Start: 05/31/23 11:25 Freq: Status: Active Protocol: Document 06/02/23 13:00 [facility] (Rec: 06/02/23 13:46 [facility] [id number]) Out-Patient Physical Therapy Visit Information Visit Information Visit Type Treatment Note Visit Start Time 13:00 Visit Stop Time 13:45 Visit Number 2 PT-OP-B Current Condition Start: 05/31/23 11:25 Freq: Status: Active Protocol: Document 05/31/23 13:05 [facility] (Rec: 05/31/23 13:48 [facility] [id number]) Current Condition History of Current Condition Onset Date 05/25/23 Current Complaints s/p left RONNY, decreased hip ROM, pain, decreased strength History of Current Condition May 24 anterior approach total hip replacement pt is using a fww with sitting down or standing up she can feel incisional pain that feels burning but after a minute after changing positions she wont feel it as strong. She rates it as a 6/ 10 zing with positional change Walking is a 3-4/10 but if she tries to take too big of a step she jay get pain She has been wearing thigh highs and has had mild swelling only she is using a fww and its primarily to not over do. She has 3 stairs to get in at her house with a railing and has been doing fine with these. She is 6 days s/p hip surgery today Treatment Goals Patient/Caregiver Goals Pt's goals are to improve hip ROM, decrease pain, increase strength and walking distance PT-OP-C Subjective Start: 05/31/23 11:25 Freq: Status: Active Protocol: Document 06/02/23 13:00 [facility] (Rec: 06/02/23 13:46 [facility] [id number]) OP-PT Subjective Patient Comments Patient Comments pt reports her pain is decreasing and she feels like she is able to do more on her own. She does see some mild swelling in her leg. She is feeling fatigue and some shoulder discomfort with the walker. PT-OP-F Manual Assessment Start: 05/31/23 11:25 Freq: Status: Active Protocol: Document 05/31/23 13:00 [facility] (Rec: 06/01/23 13:05 [facility] [id number]) Manual Assessments Soft Tissue Assessment Soft Tissue Mobility Assessment myofascial tightness of the left quad and anterior hip, pt still has her bandage on for 2 weeks so fascial tissue will need further assessment once bandage is removed PT-OP-G Mobility & Gait Start: 05/31/23 11:25 Freq: Status: Active Protocol: Document 05/31/23 13:00 [facility] (Rec: 06/01/23 13:05 [facility] [id number]) OP Mobility Evaluation Bed Mobility Rolling ind Supine to and from Sit ind Transfers Sit to Stand IND and uses FWW Bed to Chair Transfers IND Car Transfers IND Floor Transfers not attempted OP Gait Assessment Gait Gait Assistance Required: Standby Assistance Distance (Feet) 50 Able to Maintain Weight Bearing Status Yes During Gait Assistive Devices Assistive Device Front Wheeled Walker Gait Deviations General Gait Pattern Decreased Stride Length,Step- to Gait Factors Limiting Gait Function Factors Limiting Gait Function Decreased Activity Tolerance, Decreased Strength,Limited Range of Motion,Pain PT-OP-K Range of Motion Start: 05/31/23 11:25 Freq: Status: Active Protocol: Document 05/31/23 13:00 [facility] (Rec: 06/01/23 13:05 [facility] [id number]) Hip Goniometric Range of Motion Hip Left Hip ROM WFL No Testing Position Supine Flexion w/Knee Flexed 90 Abduction 5 Comments pt has anterior hip precautions of no hip extension or ER. She has pain with hip abduction and knee flexion greater than 90 degrees. It is difficult for her to extend her hip flat onto the table and she needs a towel roll under her left knee especially at first Right Hip ROM WFL Yes Testing Position Supine Hip ROM Limitations Hip ROM Limitations Soft Tissue Tightness,Pain, Swelling Comments ANTERIOR HIP PRECAUTIONS PT-OP-M Strength Start: 05/31/23 11:25 Freq: Status: Active Protocol: Document 05/31/23 13:00 [facility] (Rec: 06/01/23 13:05 [facility] [id number]) Hip Strength Hip Manual Muscle Testing Left Comments not formaly tested due to s/p RONNY 6 days ago but decreased AROM of the left hip PT-OP-Q Treatments Start: 05/31/23 11:25 Freq: Status: Active Protocol: Document 06/02/23 13:00 [facility] (Rec: 06/02/23 14:48 [facility] [id number]) Therapeutic Exercises Supine Exercises AAROM hip abduction in supine Side left Reps/Minutes x 15 reps quad sets Side left Reps/Minutes x 10 holding 5 seconds with towel under knee heel slides with abdominal bracing Reps/Minutes x 10 reps Standing Exercises mini squats at the counter Reps/Minutes x 10 reps side steps at counter top Reps/Minutes x 20 standing calf raises Reps/Minutes 2 x 10 Comments at countertop standing weight shifts at countertop Reps/Minutes x 5 reps Manual Therapy Treatment Soft Tissue Mobilization gentle adductor release on the left Mobilization Type Strumming Body Position Supine Comments supine with towel under the knee Manual Techniques manual hamstring flossing on the left Body Position Hooklying Reps/Duration x 10 reps manual left hip ROM into hip flexion Body Position Hooklying Comments tight at 95 degress hip flexion, worked within pts limits without pusing into pain or discomfort PT-OP-T Assessment and Plan Start: 05/31/23 11:25 Freq: Status: Active Protocol: Document 06/02/23 13:00 [facility] (Rec: 06/02/23 14:48 [facility] [id number]) Physical Therapy Assessment Assessment Summary Assessment Maura is ambulating better today and taking longer stride lengths. Her MD wants her on the walker for one more week and then [place] [facility] [place] She did mention some upper trapezius discomfort and we talked about using her legs for sit-stand vs pulling up with the walker. She did better with hip abduction today and was able to start sidesteps in standing Physical Therapy Plan Frequency and Duration Frequency of Treatment 2x/Week Duration of treatment (weeks) 8 Plan of Care Start Date 05/31/23 Plan of Care End Date 07/26/23 Therapeutic Interventions Therapeutic Interventions Home Exercise Program,Manual Therapy,Self-Care/Home Management,Soft Tissue Mobilization,Therapeutic Exercises Modalities Cold Pack/Ice Massage Next Visit Focus/Plan Next Note Type Treatment Note Next Visit Plan continue progressing hip ROM, gait and functional mobility of the left hip
--- NOTE | 2023-06-08 14:30 | PT.OTN ---
Addendum entered and electronically signed by Christina Mar PTA 06/09/23 08:55: Pt is also elevating LLE during use CP modality. Original Note: Current Diagnoses Pain in left hip (06/08/23) Stiffness of unspecified hip, not elsewhere classified (06/08/23) Muscle weakness (generalized) (06/08/23) Presence of left artificial hip joint (06/08/23) Physical Therapy Treatment Note PT-OP-A Visit Information Start: 05/31/23 11:25 Freq: Status: Active Protocol: Document 06/08/23 13:49 [facility] (Rec: 06/08/23 14:35 [facility] [id number]) Out-Patient Physical Therapy Visit Information Visit Information Visit Type Treatment Note Visit Start Time 13:49 Visit Stop Time 14:30 Visit Number 3 Number of INTERIOR BLOCK WIRER Visits 1 Evaluation Information Evaluation Date 05/31/23 Precautions Precautions Anterior L hip precautions PT-OP-B Current Condition Start: 05/31/23 11:25 Freq: Status: Active Protocol: Document 05/31/23 13:05 [facility] (Rec: 05/31/23 13:48 [facility] [id number]) Current Condition History of Current Condition Onset Date 05/25/23 Current Complaints s/p left RONNY, decreased hip ROM, pain, decreased strength History of Current Condition May 24 anterior approach total hip replacement pt is using a fww with sitting down or standing up she can feel incisional pain that feels burning but after a minute after changing positions she wont feel it as strong. She rates it as a 6/ 10 zing with positional change Walking is a 3-4/10 but if she tries to take too big of a step she jay get pain She has been wearing thigh highs and has had mild swelling only she is using a fww and its primarily to not over do. She has 3 stairs to get in at her house with a railing and has been doing fine with these. She is 6 days s/p hip surgery today Treatment Goals Patient/Caregiver Goals Pt's goals are to improve hip ROM, decrease pain, increase strength and walking distance PT-OP-C Subjective Start: 05/31/23 11:25 Freq: Status: Active Protocol: Document 06/08/23 13:49 [facility] (Rec: 06/08/23 14:35 SP [id number]) OP-PT Subjective Patient Comments Patient Comments Pt reports tired after last tx . Has xray on Fri. Is challenged with control Leg out to side. When sits to long stiff and hurts when gets up hurts but once up moving better. Compliant with HEP and alignment. Use of 4WW now and looks confident and proper use today. Can lift L leg in bed now /s use of leg wash house worker. Self dressing accept compression hose. PT-OP-F Manual Assessment Start: 05/31/23 11:25 Freq: Status: Active Protocol: Document 05/31/23 13:00 [facility] (Rec: 06/01/23 13:05 [facility] [id number]) Manual Assessments Soft Tissue Assessment Soft Tissue Mobility Assessment myofascial tightness of the left quad and anterior hip, pt still has her bandage on for 2 weeks so fascial tissue will need further assessment once bandage is removed PT-OP-G Mobility & Gait Start: 05/31/23 11:25 Freq: Status: Active Protocol: Document 05/31/23 13:00 [facility] (Rec: 06/01/23 13:05 [facility] [id number]) OP Mobility Evaluation Bed Mobility Rolling ind Supine to and from Sit ind Transfers Sit to Stand IND and uses FWW Bed to Chair Transfers IND Car Transfers IND Floor Transfers not attempted OP Gait Assessment Gait Gait Assistance Required: Standby Assistance Distance (Feet) 50 Able to Maintain Weight Bearing Status Yes During Gait Assistive Devices Assistive Device Front Wheeled Walker Gait Deviations General Gait Pattern Decreased Stride Length,Step- to Gait Factors Limiting Gait Function Factors Limiting Gait Function Decreased Activity Tolerance, Decreased Strength,Limited Range of Motion,Pain PT-OP-K Range of Motion Start: 05/31/23 11:25 Freq: Status: Active Protocol: Document 05/31/23 13:00 [facility] (Rec: 06/01/23 13:05 [facility] [id number]) Hip Goniometric Range of Motion Hip Left Hip ROM WFL No Testing Position Supine Flexion w/Knee Flexed 90 Abduction 5 Comments pt has anterior hip precautions of no hip extension or ER. She has pain with hip abduction and knee flexion greater than 90 degrees. It is difficult for her to extend her hip flat onto the table and she needs a towel roll under her left knee especially at first Right Hip ROM WFL Yes Testing Position Supine Hip ROM Limitations Hip ROM Limitations Soft Tissue Tightness,Pain, Swelling Comments ANTERIOR HIP PRECAUTIONS PT-OP-M Strength Start: 05/31/23 11:25 Freq: Status: Active Protocol: Document 05/31/23 13:00 [facility] (Rec: 06/01/23 13:05 [facility] [id number]) Hip Strength Hip Manual Muscle Testing Left Comments not formaly tested due to s/p RONNY 6 days ago but decreased AROM of the left hip PT-OP-Q Treatments Start: 05/31/23 11:25 Freq: Status: Active Protocol: Document 06/08/23 13:49 [facility] (Rec: 06/08/23 14:35 [facility] [id number]) Therapeutic Exercises Supine Exercises glut set Supine Exercise Name reviewed Side bilateral Reps/Minutes 10 x5 Comments good form review SAQ Supine Exercise Name HEP reviewed Side left Resistance AROM Equipment Used knee over foam roller Reps/Minutes x10 AAROM hip abduction in supine Side left Resistance AROM Reps/Minutes 2x5 reps Comments good form, slow pacing- achy 4 /10 quad sets Side left Reps/Minutes x 10 holding 5 seconds with towel under knee heel slides with abdominal bracing Supine Exercise Name HEP reviewed Side left Resistance AROM Equipment Used improving ROM reported past couple days Reps/Minutes x 10 reps Comments performing 10 reps 3x/day Standing Exercises mini squats at the counter Equipment Used rail contact support Reps/Minutes 3x 10 reps Comments cues for knees behind toes, hip hinge side steps at counter top Equipment Used rail support Reps/Minutes 20 ft x2 laps Comments cued knee/hip flexion L ft clearance standing calf raises Reps/Minutes 2 x 10 Comments at countertop standing weight shifts at countertop Reps/Minutes x 5 reps standing weight shifts with FWW Standing Exercise Name 4WW brakes locked Reps/Minutes 5-10 reps Comments cues to weight shift as tolerated Therapeutic Activity Therapeutic Activity functional squat Name trialed picker operator items on floor Reps/Minutes 1 Comments cued lock 4WW, split stance with WBOS Gait Training Gait Activity back stepping /c AD Device Used 4WW Distance/Duration 20 ft x2 laps Treatment Focus maintain no ext, stability pacing gait 4WW Device Used 4WW Level of Assistance S Distance/Duration throughout clinic Treatment Focus proper use, gait phases maintained Comments cued knee and hip flexion Manual Therapy Treatment Soft Tissue Mobilization gentle adductor release on the left Body Location L adductor, quad Mobilization Type Rolling,Other Body Position Supine Comments supine with towel under the knee, gentle light anteriolateral L thigh surgical area, good response. Will assess scar next tx post Dr appt and removal of bandaging. PT-OP-T Assessment and Plan Start: 05/31/23 11:25 Freq: Status: Active Protocol: Document 06/08/23 13:49 [facility] (Rec: 06/08/23 14:35 [facility] [id number]) Physical Therapy Assessment Goals 4 Impairment Maura scores a 24 on the LE functional scale which places her at 60-79 percent impaired Alf Goal (LTG) Maura score on the LE functional scale is improved by 10 points or greater to reduce functional impairment LTG Duration 8 weeks 3 Impairment Decreased hip strength following L RONNY Short Term Goal (STG) Maura is educated on a HEP for improved hip strength STG Duration 4 weeks Alf Goal (LTG) Maura is independent with a HEP and demonstrates improvement with hip strength LTG Duration 8 weeks 2 Impairment Decreased hip ROM s/p L RONNY and pt has precautions of no hip extension or hip ER Short Term Goal (STG) Maura is educated on a home program to improve hip ROM STG Duration 5 weeks Shrinking Machine Operator Goal (LTG) Maura presents with improved hip ROM into hip flexion and abduction LTG Duration 8 weeks 1 Impairment left sided hip pain s/p RONNY that ranges from 2 at rest to 7/10 with positional changes Shrinking Machine Operator Goal (LTG) Maura reports a overall reduction in pain of the left hip LTG Duration 8 weeks Assessment Summary Assessment Good response to gentle light manual to L thigh and med/lat surgical for edema mgt and adductor tightness. She demonstrates good performance with HEP review today, was able to complete supine hip abd AROM today but tiring with low discomfort and rep tolerance. Cues for hip and knee flexion during L LE during gait and side stepping today for reduction of hip hike elevation compenstations, use of mirror initially improved self awareness. Trialed picking up item from floor briefly modified stride stance to give pt awareness how get items at home but suggested use lift truck operator best use for safety maintain precautions. Short time spent on back stepping step to patterning and pivots with min cues for marching steps to maintain precautions of limit ER and ext L hip with improved performance useing 4WW with good pacing and safety use community and at home she would prefer.Discussed CP for edema mgt,declined in PT but doing home. Physical Therapy Plan Frequency and Duration Frequency of Treatment 2x/Week Duration of treatment (weeks) 8 Plan of Care Start Date 05/31/23 Plan of Care End Date 07/26/23 Therapeutic Interventions Therapeutic Interventions Home Exercise Program,Manual Therapy,Self-Care/Home Management,Soft Tissue Mobilization,Therapeutic Exercises Modalities Cold Pack/Ice Massage Next Visit Focus/Plan Next Note Type Treatment Note Next Visit Plan Check Dr recommendations from Fri appt and allowance start Bike. POC PT: continue progressing hip ROM, gait and functional mobility of the left hip
--- NOTE | 2023-06-14 17:48 | PT.OTN ---
Current Diagnoses Pain in left hip (06/14/23) Stiffness of unspecified hip, not elsewhere classified (06/14/23) Muscle weakness (generalized) (06/14/23) Presence of left artificial hip joint (06/14/23) Physical Therapy Treatment Note PT-OP-A Visit Information Start: 05/31/23 11:25 Freq: Status: Active Protocol: Document 06/14/23 13:45 [facility] (Rec: 06/14/23 17:45 [facility] [id number]) Out-Patient Physical Therapy Visit Information Visit Information Visit Type Treatment Note Visit Start Time 13:45 Visit Stop Time 14:30 Visit Number 4 Number of FACILITIES MANAGER Visits 0 PT-OP-B Current Condition Start: 05/31/23 11:25 Freq: Status: Active Protocol: Document 05/31/23 13:05 [facility] (Rec: 05/31/23 13:48 [facility] [id number]) Current Condition History of Current Condition Onset Date 05/25/23 Current Complaints s/p left RONNY, decreased hip ROM, pain, decreased strength History of Current Condition May 24 anterior approach total hip replacement pt is using a fww with sitting down or standing up she can feel incisional pain that feels burning but after a minute after changing positions she wont feel it as strong. She rates it as a 6/ 10 zing with positional change Walking is a 3-4/10 but if she tries to take too big of a step she jay get pain She has been wearing thigh highs and has had mild swelling only she is using a fww and its primarily to not over do. She has 3 stairs to get in at her house with a railing and has been doing fine with these. She is 6 days s/p hip surgery today Treatment Goals Patient/Caregiver Goals Pt's goals are to improve hip ROM, decrease pain, increase strength and walking distance PT-OP-C Subjective Start: 05/31/23 11:25 Freq: Status: Active Protocol: Document 06/14/23 13:45 [facility] (Rec: 06/14/23 17:45 [facility] [id number]) OP-PT Subjective Patient Comments Patient Comments Maura reports she had her psot op visit and it went well. Xrays were taken and look good . SHe is cleared to begin the bike. She is feeling tightness in ITB region. PT-OP-F Manual Assessment Start: 05/31/23 11:25 Freq: Status: Active Protocol: Document 05/31/23 13:00 [facility] (Rec: 06/01/23 13:05 [facility] [id number]) Manual Assessments Soft Tissue Assessment Soft Tissue Mobility Assessment myofascial tightness of the left quad and anterior hip, pt still has her bandage on for 2 weeks so fascial tissue will need further assessment once bandage is removed PT-OP-G Mobility & Gait Start: 05/31/23 11:25 Freq: Status: Active Protocol: Document 05/31/23 13:00 [facility] (Rec: 06/01/23 13:05 [facility] [id number]) OP Mobility Evaluation Bed Mobility Rolling ind Supine to and from Sit ind Transfers Sit to Stand IND and uses FWW Bed to Chair Transfers IND Car Transfers IND Floor Transfers not attempted OP Gait Assessment Gait Gait Assistance Required: Standby Assistance Distance (Feet) 50 Able to Maintain Weight Bearing Status Yes During Gait Assistive Devices Assistive Device Front Wheeled Walker Gait Deviations General Gait Pattern Decreased Stride Length,Step- to Gait Factors Limiting Gait Function Factors Limiting Gait Function Decreased Activity Tolerance, Decreased Strength,Limited Range of Motion,Pain PT-OP-K Range of Motion Start: 05/31/23 11:25 Freq: Status: Active Protocol: Document 05/31/23 13:00 [facility] (Rec: 06/01/23 13:05 [facility] [id number]) Hip Goniometric Range of Motion Hip Left Hip ROM WFL No Testing Position Supine Flexion w/Knee Flexed 90 Abduction 5 Comments pt has anterior hip precautions of no hip extension or ER. She has pain with hip abduction and knee flexion greater than 90 degrees. It is difficult for her to extend her hip flat onto the table and she needs a towel roll under her left knee especially at first Right Hip ROM WFL Yes Testing Position Supine Hip ROM Limitations Hip ROM Limitations Soft Tissue Tightness,Pain, Swelling Comments ANTERIOR HIP PRECAUTIONS PT-OP-M Strength Start: 05/31/23 11:25 Freq: Status: Active Protocol: Document 05/31/23 13:00 [facility] (Rec: 06/01/23 13:05 [facility] [id number]) Hip Strength Hip Manual Muscle Testing Left Comments not formaly tested due to s/p RONNY 6 days ago but decreased AROM of the left hip PT-OP-Q Treatments Start: 05/31/23 11:25 Freq: Status: Active Protocol: Document 06/14/23 13:45 [facility] (Rec: 06/14/23 17:45 [facility] [id number]) Cardio Equipment Bicycle (Upright) Duration (Minutes) 5 Resistance 0 Seat Position 4 Therapeutic Exercises Supine Exercises AROM hip abduction Reps/Minutes x 15 Comments Maura is able to actively abduct hip now Manual Therapy Treatment Soft Tissue Mobilization scar tissue massage Comments bandage was removed and incisions closed, I was able to start gentle scar tissue massage over the anterior left hip and quad. Maura had good tolerance gentle adductor release on the left Body Location L adductor, quad Mobilization Type Rolling,Other Body Position Supine Comments pt able to lay flat today without a towel under knee PT-OP-T Assessment and Plan Start: 05/31/23 11:25 Freq: Status: Active Protocol: Document 06/14/23 13:45 [facility] (Rec: 06/14/23 14:32 [facility] [id number]) Physical Therapy Assessment Assessment Summary Assessment pt had her xray and everything is looking good. She has tried walking with her cane and notes this feels good for home. She had her walker with her today for tx. Her leg length was measured and it was equal. She has felt some discomfort on the back of the left knee/ITB region She was cleared to start the bike and tolerated 5 min today on upright bike. She was then able to lay flat without a towel to start scar tissue massage today. She tolerated this well. Maura was also able to abduct her left hip in supine Ind today. She is making good progress. Physical Therapy Plan Frequency and Duration Frequency of Treatment 2x/Week Duration of treatment (weeks) 8 Plan of Care Start Date 05/31/23 Plan of Care End Date 07/26/23 Therapeutic Interventions Therapeutic Interventions Home Exercise Program,Manual Therapy,Self-Care/Home Management,Soft Tissue Mobilization,Therapeutic Exercises Modalities Cold Pack/Ice Massage Next Visit Focus/Plan Next Note Type Treatment Note Next Visit Plan warm up on bike, scar tissue mobilization, gait training with SPC and stair training
--- NOTE | 2023-06-16 14:31 | PT.OTN ---
Current Diagnoses Pain in left hip (06/16/23) Stiffness of unspecified hip, not elsewhere classified (06/16/23) Muscle weakness (generalized) (06/16/23) Presence of left artificial hip joint (06/16/23) Physical Therapy Treatment Note PT-OP-A Visit Information Start: 05/31/23 11:25 Freq: Status: Active Protocol: Document 06/16/23 13:53 SP (Rec: 06/16/23 14:35 SP [id number]) Out-Patient Physical Therapy Visit Information Visit Information Visit Type Treatment Note Visit Start Time 13:53 Visit Stop Time 14:31 Visit Number 6 Number of PHP ENGINEER Visits 1 Evaluation Information Evaluation Date 05/31/23 Precautions Precautions Anterior L hip precautions PT-OP-B Current Condition Start: 05/31/23 11:25 Freq: Status: Active Protocol: Document 05/31/23 13:05 [facility] (Rec: 05/31/23 13:48 [facility] [id number]) Current Condition History of Current Condition Onset Date 05/25/23 Current Complaints s/p left RONNY, decreased hip ROM, pain, decreased strength History of Current Condition May 24 anterior approach total hip replacement pt is using a fww with sitting down or standing up she can feel incisional pain that feels burning but after a minute after changing positions she wont feel it as strong. She rates it as a 6/ 10 zing with positional change Walking is a 3-4/10 but if she tries to take too big of a step she jay get pain She has been wearing thigh highs and has had mild swelling only she is using a fww and its primarily to not over do. She has 3 stairs to get in at her house with a railing and has been doing fine with these. She is 6 days s/p hip surgery today Treatment Goals Patient/Caregiver Goals Pt's goals are to improve hip ROM, decrease pain, increase strength and walking distance PT-OP-C Subjective Start: 05/31/23 11:25 Freq: Status: Active Protocol: Document 06/16/23 13:53 SP (Rec: 06/16/23 14:35 SP [id number]) OP-PT Subjective Patient Comments Patient Comments Pt reports using bike home daily. She states has 3 stairs enter/leave home wide rail. Pt has SPC and ordered hurry bottom so it can free stand if needed. PT-OP-F Manual Assessment Start: 05/31/23 11:25 Freq: Status: Active Protocol: Document 05/31/23 13:00 [facility] (Rec: 06/01/23 13:05 [facility] [id number]) Manual Assessments Soft Tissue Assessment Soft Tissue Mobility Assessment myofascial tightness of the left quad and anterior hip, pt still has her bandage on for 2 weeks so fascial tissue will need further assessment once bandage is removed PT-OP-G Mobility & Gait Start: 05/31/23 11:25 Freq: Status: Active Protocol: Document 05/31/23 13:00 [facility] (Rec: 06/01/23 13:05 [facility] [id number]) OP Mobility Evaluation Bed Mobility Rolling ind Supine to and from Sit ind Transfers Sit to Stand IND and uses FWW Bed to Chair Transfers IND Car Transfers IND Floor Transfers not attempted OP Gait Assessment Gait Gait Assistance Required: Standby Assistance Distance (Feet) 50 Able to Maintain Weight Bearing Status Yes During Gait Assistive Devices Assistive Device Front Wheeled Walker Gait Deviations General Gait Pattern Decreased Stride Length,Step- to Gait Factors Limiting Gait Function Factors Limiting Gait Function Decreased Activity Tolerance, Decreased Strength,Limited Range of Motion,Pain PT-OP-K Range of Motion Start: 05/31/23 11:25 Freq: Status: Active Protocol: Document 05/31/23 13:00 [facility] (Rec: 06/01/23 13:05 [facility] [id number]) Hip Goniometric Range of Motion Hip Left Hip ROM WFL No Testing Position Supine Flexion w/Knee Flexed 90 Abduction 5 Comments pt has anterior hip precautions of no hip extension or ER. She has pain with hip abduction and knee flexion greater than 90 degrees. It is difficult for her to extend her hip flat onto the table and she needs a towel roll under her left knee especially at first Right Hip ROM WFL Yes Testing Position Supine Hip ROM Limitations Hip ROM Limitations Soft Tissue Tightness,Pain, Swelling Comments ANTERIOR HIP PRECAUTIONS PT-OP-M Strength Start: 05/31/23 11:25 Freq: Status: Active Protocol: Document 05/31/23 13:00 [facility] (Rec: 06/01/23 13:05 [facility] [id number]) Hip Strength Hip Manual Muscle Testing Left Comments not formaly tested due to s/p RONNY 6 days ago but decreased AROM of the left hip PT-OP-Q Treatments Start: 05/31/23 11:25 Freq: Status: Active Protocol: Document 06/16/23 13:53 SP (Rec: 06/16/23 14:35 SP [id number]) Therapeutic Exercises Supine Exercises SLR Supine Exercise Name assessed Side left Resistance AROM Reps/Minutes 5 reps x2 Comments cued TKE, very minimal lag quad sets Side left Reps/Minutes x 10 holding 5 seconds with towel under knee Sitting Exercises LAQ Side left Resistance 4# Leg wt Reps/Minutes 3x5 reps Comments tiring quad, little pop distal ITB with good relief tightness response Therapeutic Activity Therapeutic Activity functional squat Name hip hinge /c dowel back Reps/Minutes 1 Comments cued lock 4WW, WBOS Gait Training Gait Activity stairs Description receiprocal stepping Level of Assistance S Distance/Duration 4 x4 stairs Treatment Focus ankle L knee flexion receiprocal stepping mechanics Comments light contact R HR, BUE support descend during LLE knee flexion but able to complete minimal discomfort. SPC Device Used SPC Level of Assistance S Distance/Duration length in gym front mirror Comments good sequencing SPC in RUE with LLE. Manual Therapy Treatment Soft Tissue Mobilization scar tissue massage Comments bandage was removed and incisions closed, I was able to start gentle scar tissue massage over the anterior left hip and quad. Maura had good tolerance PT-OP-T Assessment and Plan Start: 05/31/23 11:25 Freq: Status: Active Protocol: Document 06/16/23 13:53 SP (Rec: 06/16/23 14:35 SP [id number]) Physical Therapy Assessment Goals 4 Impairment Maura scores a 24 on the LE functional scale which places her at 60-79 percent impaired Intermediate Goal (LTG) Maura score on the LE functional scale is improved by 10 points or greater to reduce functional impairment LTG Duration 8 weeks 3 Impairment Decreased hip strength following L RONNY Short Term Goal (STG) Maura is educated on a HEP for improved hip strength STG Duration 4 weeks Mine Surveyor Goal (LTG) Maura is independent with a HEP and demonstrates improvement with hip strength LTG Duration 8 weeks 2 Impairment Decreased hip ROM s/p L RONNY and pt has precautions of no hip extension or hip ER Short Term Goal (STG) Maura is educated on a home program to improve hip ROM STG Duration 5 weeks Mine Surveyor Goal (LTG) Maura presents with improved hip ROM into hip flexion and abduction LTG Duration 8 weeks 1 Impairment left sided hip pain s/p RONNY that ranges from 2 at rest to 7/10 with positional changes Mine Surveyor Goal (LTG) Maura reports a overall reduction in pain of the left hip LTG Duration 8 weeks Assessment Summary Assessment Pt good tolerance to resistance with LAQ and very slight lag during SLR today, cued TKE pre lift. USE of dowel on back for education on proper hip hinge and equal stance maintain no LE ext able get item off floor very low discomfort in L hip. She is ableto receiprocal step but uses light HR ascend of 1 UE, light BUE descend. Improved sequencing use of SPC in mirror, encourage use of SPC short distances in home. Still noted swelling L anterior thigh, pt is continue touse of CP and elevated LE during day . Physical Therapy Plan Frequency and Duration Frequency of Treatment 2x/Week Duration of treatment (weeks) 8 Plan of Care Start Date 05/31/23 Plan of Care End Date 07/26/23 Therapeutic Interventions Therapeutic Interventions Home Exercise Program,Manual Therapy,Self-Care/Home Management,Soft Tissue Mobilization,Therapeutic Exercises Modalities Cold Pack/Ice Massage Next Visit Focus/Plan Next Note Type Treatment Note Next Visit Plan warm up on bike, scar tissue mobilization, gait training with SPC and stair training, use of CP modality L thigh swelling control.
--- NOTE | 2023-06-21 12:20 | PT.OTN ---
Current Diagnoses Pain in left hip (06/21/23) Stiffness of unspecified hip, not elsewhere classified (06/21/23) Muscle weakness (generalized) (06/21/23) Presence of left artificial hip joint (06/21/23) Physical Therapy Treatment Note PT-OP-A Visit Information Start: 05/31/23 11:25 Freq: Status: Active Protocol: Document 06/21/23 11:22 NBM (Rec: 06/21/23 12:07 [facility] [id number]) Out-Patient Physical Therapy Visit Information Visit Information Visit Type Treatment Note Visit Start Time 11:22 Visit Stop Time 12:06 Visit Number 7 Number of YARDAGE CONTROL CLERK Visits 2 Evaluation Information Evaluation Date 05/31/23 Precautions Precautions Anterior L hip precautions PT-OP-B Current Condition Start: 05/31/23 11:25 Freq: Status: Active Protocol: Document 05/31/23 13:05 [facility] (Rec: 05/31/23 13:48 [facility] [id number]) Current Condition History of Current Condition Onset Date 05/25/23 Current Complaints s/p left RONNY, decreased hip ROM, pain, decreased strength History of Current Condition May 24 anterior approach total hip replacement pt is using a fww with sitting down or standing up she can feel incisional pain that feels burning but after a minute after changing positions she wont feel it as strong. She rates it as a 6/ 10 zing with positional change Walking is a 3-4/10 but if she tries to take too big of a step she jay get pain She has been wearing thigh highs and has had mild swelling only she is using a fww and its primarily to not over do. She has 3 stairs to get in at her house with a railing and has been doing fine with these. She is 6 days s/p hip surgery today Treatment Goals Patient/Caregiver Goals Pt's goals are to improve hip ROM, decrease pain, increase strength and walking distance PT-OP-C Subjective Start: 05/31/23 11:25 Freq: Status: Active Protocol: Document 06/21/23 11:22 NBM (Rec: 06/21/23 12:07 [facility] [id number]) OP-PT Subjective Patient Comments Patient Comments Maura reports she did a long walk with cane this week without much pain. Most pain is when she first gets up, and then it loosens up, but then when she gets tired it hurts again when she gets up until it loosens up again. Fatigue is probably the biggest issue. Every day is a new improvement. This morning she was able to do SAQ and straighten it up. She was able to get sock on by sitting and bending over enough today. She's mindful of precautions. Her shoulders were getting sore with the walker so she's been suing the cane now, but sometimes forgets it. Vitamin E oil massaged onto scar. She uses ice and heat. Patient Reported Progress Improving PT-OP-F Manual Assessment Start: 05/31/23 11:25 Freq: Status: Active Protocol: Document 05/31/23 13:00 [facility] (Rec: 06/01/23 13:05 [facility] [id number]) Manual Assessments Soft Tissue Assessment Soft Tissue Mobility Assessment myofascial tightness of the left quad and anterior hip, pt still has her bandage on for 2 weeks so fascial tissue will need further assessment once bandage is removed PT-OP-G Mobility & Gait Start: 05/31/23 11:25 Freq: Status: Active Protocol: Document 05/31/23 13:00 [facility] (Rec: 06/01/23 13:05 [facility] [id number]) OP Mobility Evaluation Bed Mobility Rolling ind Supine to and from Sit ind Transfers Sit to Stand IND and uses FWW Bed to Chair Transfers IND Car Transfers IND Floor Transfers not attempted OP Gait Assessment Gait Gait Assistance Required: Standby Assistance Distance (Feet) 50 Able to Maintain Weight Bearing Status Yes During Gait Assistive Devices Assistive Device Front Wheeled Walker Gait Deviations General Gait Pattern Decreased Stride Length,Step- to Gait Factors Limiting Gait Function Factors Limiting Gait Function Decreased Activity Tolerance, Decreased Strength,Limited Range of Motion,Pain PT-OP-K Range of Motion Start: 05/31/23 11:25 Freq: Status: Active Protocol: Document 05/31/23 13:00 [facility] (Rec: 06/01/23 13:05 [facility] [id number]) Hip Goniometric Range of Motion Hip Left Hip ROM WFL No Testing Position Supine Flexion w/Knee Flexed 90 Abduction 5 Comments pt has anterior hip precautions of no hip extension or ER. She has pain with hip abduction and knee flexion greater than 90 degrees. It is difficult for her to extend her hip flat onto the table and she needs a towel roll under her left knee especially at first Right Hip ROM WFL Yes Testing Position Supine Hip ROM Limitations Hip ROM Limitations Soft Tissue Tightness,Pain, Swelling Comments ANTERIOR HIP PRECAUTIONS PT-OP-M Strength Start: 05/31/23 11:25 Freq: Status: Active Protocol: Document 05/31/23 13:00 [facility] (Rec: 06/01/23 13:05 [facility] [id number]) Hip Strength Hip Manual Muscle Testing Left Comments not formaly tested due to s/p RONNY 6 days ago but decreased AROM of the left hip PT-OP-Q Treatments Start: 05/31/23 11:25 Freq: Status: Active Protocol: Document 06/21/23 11:22 NBM (Rec: 06/21/23 12:07 [facility] [id number]) Cardio Equipment Bicycle (Upright) Duration (Minutes) 6 Resistance 4 Seat Position 4 Therapeutic Activity Therapeutic Activity functional squat Name hip hinge 1./c dowel back 2. without dowel. Reps/Minutes 2x10 Comments WBOS Gait Training Gait Activity stairs Description receiprocal stepping Device Used 1. R BUS CLEANER rail only. 2. SPC in RUE only. Level of Assistance S Distance/Duration 4 x4 stairs Treatment Focus ankle L knee flexion receiprocal stepping mechanics Comments light contact R HR, BUE support descend during LLE knee flexion but able to complete minimal discomfort. SPC Device Used SPC Level of Assistance SBA Distance/Duration length in gym front mirror x 4 Treatment Focus sequencing, safety, equal stance time Comments good sequencing SPC in RUE with LLE but pt requires cues for increased stance time into LLE, especially without SPC. Pt i/s to continue use w/ SPC accordingly. Manual Therapy Treatment Soft Tissue Mobilization scar tissue massage Comments bandage was removed and incisions closed, I was able to start gentle scar tissue massage over the anterior left hip and quad. Pt i/s in self- scar tissue massage gentle adductor release on the left Body Location L adductor, quad Mobilization Type Rolling,Sustained Pressure Intensity/Depth Moderate Body Position Supine Comments pt able to lay flat today without a towel under knee Self-Care/Home Management Treatment Education Patient Education Home Exercise Program,Joint Protection,Pain Management Other Education Pt i/s in self-scar tissue massage w/ focus on areas of palpable hardness along scar. PT-OP-T Assessment and Plan Start: 05/31/23 11:25 Freq: Status: Active Protocol: Document 06/21/23 11:22 [facility] (Rec: 06/21/23 12:07 [facility] [id number]) Physical Therapy Assessment Goals 4 Impairment Maura scores a 24 on the LE functional scale which places her at 60-79 percent impaired Mushroom [employer] Media Mixer Goal (LTG) Maura score on the LE functional scale is improved by 10 points or greater to reduce functional impairment LTG Duration 8 weeks 3 Impairment Decreased hip strength following L RONNY Short Term Goal (STG) Maura is educated on a HEP for improved hip strength STG Duration 4 weeks Mushroom Growth Media Mixer Goal (LTG) Maura is independent with a HEP and demonstrates improvement with hip strength LTG Duration 8 weeks 2 Impairment Decreased hip ROM s/p L RONNY and pt has precautions of no hip extension or hip ER Short Term Goal (STG) Maura is educated on a home program to improve hip ROM STG Duration 5 weeks Custodial Goal (LTG) Maura presents with improved hip ROM into hip flexion and abduction LTG Duration 8 weeks 1 Impairment left sided hip pain s/p RONNY that ranges from 2 at rest to 7/10 with positional changes Custodial Goal (LTG) Maura reports a overall reduction in pain of the left hip LTG Duration 8 weeks Assessment Summary Assessment Treatment focus on gait training w/ SPC and stairs, functional squat training w/ hip hinge focus, STM to L quads and hip adductors and instruction in self-scar tissue massage. Pt edu w/ mirror feedback to use SPC with ambulating which improves gait mechanics and to prevent compensatory gait such as decreased stance time on L and increased lateral lean. Pt also encouraged to increase stance time on LLE with stair descent and demos improved self-awareness w/ repetition. Pt requires cues for hip hinge and eccentric control w/ functional squat. Pt i/s in self-scar tissue massage w/ focus on areas of palpable hardness along scar. Palpable tension to L adductors improves w/ STM. Physical Therapy Plan Frequency and Duration Frequency of Treatment 2x/Week Duration of treatment (weeks) 8 Plan of Care Start Date 05/31/23 Plan of Care End Date 07/26/23 Therapeutic Interventions Therapeutic Interventions Home Exercise Program,Manual Therapy,Self-Care/Home Management,Soft Tissue Mobilization,Therapeutic Exercises Modalities Cold Pack/Ice Massage Next Visit Focus/Plan Next Note Type Treatment Note Next Visit Plan warm up on bike, scar tissue mobilization, gait training with SPC and stair training, use of CP modality L thigh swelling control.
--- NOTE | 2023-06-23 14:30 | PT.OTN ---
Current Diagnoses Pain in left hip (06/23/23) Stiffness of unspecified hip, not elsewhere classified (06/23/23) Muscle weakness (generalized) (06/23/23) Presence of left artificial hip joint (06/23/23) Physical Therapy Treatment Note PT-OP-A Visit Information Start: 05/31/23 11:25 Freq: Status: Active Protocol: Document 06/23/23 13:51 SP (Rec: 06/23/23 14:34 SP [id number]) Out-Patient Physical Therapy Visit Information Visit Information Visit Type Treatment Note Visit Start Time 13:51 Visit Stop Time 14:30 Visit Number 8 Number of DIRECTOR OF [facility] Visits 3 Evaluation Information Evaluation Date 05/31/23 Precautions Precautions Anterior L hip precautions PT-OP-B Current Condition Start: 05/31/23 11:25 Freq: Status: Active Protocol: Document 05/31/23 13:05 [facility] (Rec: 05/31/23 13:48 [facility] [id number]) Current Condition History of Current Condition Onset Date 05/25/23 Current Complaints s/p left RONNY, decreased hip ROM, pain, decreased strength History of Current Condition May 24 anterior approach total hip replacement pt is using a fww with sitting down or standing up she can feel incisional pain that feels burning but after a minute after changing positions she wont feel it as strong. She rates it as a 6/ 10 zing with positional change Walking is a 3-4/10 but if she tries to take too big of a step she jay get pain She has been wearing thigh highs and has had mild swelling only she is using a fww and its primarily to not over do. She has 3 stairs to get in at her house with a railing and has been doing fine with these. She is 6 days s/p hip surgery today Treatment Goals Patient/Caregiver Goals Pt's goals are to improve hip ROM, decrease pain, increase strength and walking distance PT-OP-C Subjective Start: 05/31/23 11:25 Freq: Status: Active Protocol: Document 06/23/23 13:51 SP (Rec: 06/23/23 14:34 SP [id number]) OP-PT Subjective Patient Comments Patient Comments Pt reports is doing 45 min walks .5-.75 miles with hurry cane, outside level surfaces. Is able to lift leg enough to save leg but not clip toe nails. SHe is compliant with SLS, LAQ, ankle ROM and heel slide. Patient Reported Progress Improving PT-OP-F Manual Assessment Start: 05/31/23 11:25 Freq: Status: Active Protocol: Document 05/31/23 13:00 [facility] (Rec: 06/01/23 13:05 [facility] [id number]) Manual Assessments Soft Tissue Assessment Soft Tissue Mobility Assessment myofascial tightness of the left quad and anterior hip, pt still has her bandage on for 2 weeks so fascial tissue will need further assessment once bandage is removed PT-OP-G Mobility & Gait Start: 05/31/23 11:25 Freq: Status: Active Protocol: Document 05/31/23 13:00 [facility] (Rec: 06/01/23 13:05 [facility] [id number]) OP Mobility Evaluation Bed Mobility Rolling ind Supine to and from Sit ind Transfers Sit to Stand IND and uses FWW Bed to Chair Transfers IND Car Transfers IND Floor Transfers not attempted OP Gait Assessment Gait Gait Assistance Required: Standby Assistance Distance (Feet) 50 Able to Maintain Weight Bearing Status Yes During Gait Assistive Devices Assistive Device Front Wheeled Walker Gait Deviations General Gait Pattern Decreased Stride Length,Step- to Gait Factors Limiting Gait Function Factors Limiting Gait Function Decreased Activity Tolerance, Decreased Strength,Limited Range of Motion,Pain PT-OP-K Range of Motion Start: 05/31/23 11:25 Freq: Status: Active Protocol: Document 05/31/23 13:00 [facility] (Rec: 06/01/23 13:05 [facility] [id number]) Hip Goniometric Range of Motion Hip Left Hip ROM WFL No Testing Position Supine Flexion w/Knee Flexed 90 Abduction 5 Comments pt has anterior hip precautions of no hip extension or ER. She has pain with hip abduction and knee flexion greater than 90 degrees. It is difficult for her to extend her hip flat onto the table and she needs a towel roll under her left knee especially at first Right Hip ROM WFL Yes Testing Position Supine Hip ROM Limitations Hip ROM Limitations Soft Tissue Tightness,Pain, Swelling Comments ANTERIOR HIP PRECAUTIONS PT-OP-M Strength Start: 05/31/23 11:25 Freq: Status: Active Protocol: Document 05/31/23 13:00 [facility] (Rec: 06/01/23 13:05 [facility] [id number]) Hip Strength Hip Manual Muscle Testing Left Comments not formaly tested due to s/p RONNY 6 days ago but decreased AROM of the left hip PT-OP-Q Treatments Start: 05/31/23 11:25 Freq: Status: Active Protocol: Document 06/23/23 13:51 SP (Rec: 06/23/23 14:34 SP [id number]) Cardio Equipment Bicycle (Upright) Duration (Minutes) 6 Resistance 4 Seat Position 4 Gym Equipment Cable Column (Body Solid) KNEE EXT Details trialed- Hold Resistance 1 plate Reps/Time to heavy Therapeutic Exercises Supine Exercises SLR Supine Exercise Name reviewed Side left Resistance AROM Reps/Minutes 3 reps x3 sets before hip flexor tires Comments cued TKE Sidelying Exercises hip abd Side left Resistance AROM Equipment Used kick stand top arm front table , 2 pillows between BLEs Reps/Minutes 5 reps x3 sets Sitting Exercises STS Equipment Used arms across chest Reps/Minutes x5 reps Comments good hip hinge and slow descent. LAQ Side left Resistance TB #1 looped ankle opp arch Reps/Minutes 2x10 reps Comments tiring quad, little pop distal ITB with good relief tightness response Standing Exercises step ups Standing Exercise Name added to HEP Side right Equipment Used 6 step Reps/Minutes 5 reps x3 set Comments cued heel drive, glut firing wt shift over stance LE hip abd Standing Exercise Name added to HEP Side bilateral Resistance TB #1 Reps/Minutes 2x5 reps Comments cued tall over stance LE, soft knee. standing calf raises Side bilateral Reps/Minutes 30-60 SH Comments at stairs, rail support PT-OP-T Assessment and Plan Start: 05/31/23 11:25 Freq: Status: Active Protocol: Document 06/23/23 13:51 SP (Rec: 06/23/23 14:34 SP [id number]) Physical Therapy Assessment Goals 4 Impairment Maura scores a 24 on the LE functional scale which places her at 60-79 percent impaired Correction Goal (LTG) Maura score on the LE functional scale is improved by 10 points or greater to reduce functional impairment LTG Duration 8 weeks 3 Impairment Decreased hip strength following L RONNY Short Term Goal (STG) Maura is educated on a HEP for improved hip strength STG Duration 4 weeks Microelectronics Engineer Goal (LTG) Maura is independent with a HEP and demonstrates improvement with hip strength LTG Duration 8 weeks 2 Impairment Decreased hip ROM s/p L RONNY and pt has precautions of no hip extension or hip ER Short Term Goal (STG) Maura is educated on a home program to improve hip ROM STG Duration 5 weeks Correction Goal (LTG) Maura presents with improved hip ROM into hip flexion and abduction LTG Duration 8 weeks 1 Impairment left sided hip pain s/p RONNY that ranges from 2 at rest to 7/10 with positional changes Microelectronics Engineer Goal (LTG) Maura reports a overall reduction in pain of the left hip LTG Duration 8 weeks Assessment Summary Assessment Pt improved tolerance to progressing HEP with resistance band and step ups using UE support. Cues for taller posturing and COG over stance LE to allow glut and hip abd support progressing normalizing gait use with SPC. Physical Therapy Plan Frequency and Duration Frequency of Treatment 2x/Week Duration of treatment (weeks) 8 Plan of Care Start Date 05/31/23 Plan of Care End Date 07/26/23 Therapeutic Interventions Therapeutic Interventions Home Exercise Program,Manual Therapy,Self-Care/Home Management,Soft Tissue Mobilization,Therapeutic Exercises Modalities Cold Pack/Ice Massage Next Visit Focus/Plan Next Note Type Treatment Note Next Visit Plan warm up on bike, scar tissue mobilization, gait training with SPC and stair training, use of CP modality L thigh swelling control.
--- NOTE | 2023-06-28 15:21 | PT.OTN ---
Current Diagnoses Pain in left hip (06/28/23) Stiffness of unspecified hip, not elsewhere classified (06/28/23) Muscle weakness (generalized) (06/28/23) Presence of left artificial hip joint (06/28/23) Physical Therapy Treatment Note PT-OP-A Visit Information Start: 05/31/23 11:25 Freq: Status: Active Protocol: Document 06/28/23 14:35 SP (Rec: 06/28/23 15:58 SP [id number]) Out-Patient Physical Therapy Visit Information Visit Information Visit Type Treatment Note Visit Start Time 14:35 Visit Stop Time 15:21 Visit Number 9 Number of EMAIL CAMPAIGN MANAGER Visits 4 Evaluation Information Evaluation Date 05/31/23 Precautions Precautions Anterior L hip precautions PT-OP-B Current Condition Start: 05/31/23 11:25 Freq: Status: Active Protocol: Document 05/31/23 13:05 [facility] (Rec: 05/31/23 13:48 [facility] [id number]) Current Condition History of Current Condition Onset Date 05/25/23 Current Complaints s/p left RONNY, decreased hip ROM, pain, decreased strength History of Current Condition May 24 anterior approach total hip replacement pt is using a fww with sitting down or standing up she can feel incisional pain that feels burning but after a minute after changing positions she wont feel it as strong. She rates it as a 6/ 10 zing with positional change Walking is a 3-4/10 but if she tries to take too big of a step she jay get pain She has been wearing thigh highs and has had mild swelling only she is using a fww and its primarily to not over do. She has 3 stairs to get in at her house with a railing and has been doing fine with these. She is 6 days s/p hip surgery today Treatment Goals Patient/Caregiver Goals Pt's goals are to improve hip ROM, decrease pain, increase strength and walking distance PT-OP-C Subjective Start: 05/31/23 11:25 Freq: Status: Active Protocol: Document 06/28/23 14:35 SP (Rec: 06/28/23 15:58 SP [id number]) OP-PT Subjective Patient Comments Patient Comments Pt at 5 weeks s/p L RONNY. She reports is walking outside now about 1/2- almost 3/4 mile, approx 45 min /c SPC but no SPC in house. She has been thinking of incorporating some standing yoga that isn't hip ext back into activities. She states swelling in L anterolateral thigh going down and using CBD menthol. Pt has ortho f/u next week. She states still getting ache feeling L hip but also sensation superficial upper anterolateral quad, using sensitization at home and feel helping assist sensation to numbness since surgery. Patient Reported Progress Improving PT-OP-F Manual Assessment Start: 05/31/23 11:25 Freq: Status: Active Protocol: Document 05/31/23 13:00 [facility] (Rec: 06/01/23 13:05 [facility] [id number]) Manual Assessments Soft Tissue Assessment Soft Tissue Mobility Assessment myofascial tightness of the left quad and anterior hip, pt still has her bandage on for 2 weeks so fascial tissue will need further assessment once bandage is removed PT-OP-G Mobility & Gait Start: 05/31/23 11:25 Freq: Status: Active Protocol: Document 05/31/23 13:00 [facility] (Rec: 06/01/23 13:05 [facility] [id number]) OP Mobility Evaluation Bed Mobility Rolling ind Supine to and from Sit ind Transfers Sit to Stand IND and uses FWW Bed to Chair Transfers IND Car Transfers IND Floor Transfers not attempted OP Gait Assessment Gait Gait Assistance Required: Standby Assistance Distance (Feet) 50 Able to Maintain Weight Bearing Status Yes During Gait Assistive Devices Assistive Device Front Wheeled Walker Gait Deviations General Gait Pattern Decreased Stride Length,Step- to Gait Factors Limiting Gait Function Factors Limiting Gait Function Decreased Activity Tolerance, Decreased Strength,Limited Range of Motion,Pain PT-OP-K Range of Motion Start: 05/31/23 11:25 Freq: Status: Active Protocol: Document 05/31/23 13:00 [facility] (Rec: 06/01/23 13:05 [facility] [id number]) Hip Goniometric Range of Motion Hip Left Hip ROM WFL No Testing Position Supine Flexion w/Knee Flexed 90 Abduction 5 Comments pt has anterior hip precautions of no hip extension or ER. She has pain with hip abduction and knee flexion greater than 90 degrees. It is difficult for her to extend her hip flat onto the table and she needs a towel roll under her left knee especially at first Right Hip ROM WFL Yes Testing Position Supine Hip ROM Limitations Hip ROM Limitations Soft Tissue Tightness,Pain, Swelling Comments ANTERIOR HIP PRECAUTIONS PT-OP-M Strength Start: 05/31/23 11:25 Freq: Status: Active Protocol: Document 05/31/23 13:00 [facility] (Rec: 06/01/23 13:05 [facility] [id number]) Hip Strength Hip Manual Muscle Testing Left Comments not formaly tested due to s/p RONNY 6 days ago but decreased AROM of the left hip PT-OP-Q Treatments Start: 05/31/23 11:25 Freq: Status: Active Protocol: Document 06/28/23 14:35 SP (Rec: 06/28/23 15:58 SP [id number]) Therapeutic Exercises Supine Exercises SLR Supine Exercise Name reviewed Side left Resistance AROM Reps/Minutes 10 reps Comments cued slight TKE during last 2 reps- tiring Sidelying Exercises hip abd Side left Resistance AROM Equipment Used kick stand top arm front table , 2 pillows between BLEs Reps/Minutes x10 Comments tactile cues for stacked on side Standing Exercises hip abd Standing Exercise Name reviewed Side bilateral Resistance TB #1 at ankles Reps/Minutes x10 Comments cued tall over stance LE, soft knee. Other Exercises YOGA review within precautions Other Exercise Name 06/27: bird dog, cat/camel, modified child's pose with SB. Comments good form, pnfree- ok return to these Therapeutic Activity Therapeutic Activity on/off floor Name LLE fwd positioning 1/2 kneel /c use of table support Reps/Minutes 1 Comments Good response and use of outside support, cued for quadruped> side sit slow desc onto buttocks wtih use of BUEs . Gait Training Gait Activity dynamic walking Description fwd head turns, back stepping not large on /c RLE Device Used none Level of Assistance Mod I Surface tile Distance/Duration 80 ft x2 laps each Treatment Focus even kristin and WB, maintain precautions Comments cue x2 for LLE hip ER to midline, turn in at time during heel strike to midstance stairs Description receiprocal stepping Device Used SPC Level of Assistance S Distance/Duration 6 stairs 4x4 sets SPC, 8 step 3x2 R HR Treatment Focus receiprocal stepping mechanics Comments light contact R HR hurry cane asc/desc, cued slower pacing LLE fwd improved control, more challenging 8 (has enter home). Manual Therapy Treatment Soft Tissue Mobilization L hip Mobilization Type Instrument Assisted,Myofascial Release Comments STMs and cupping over TFL, VL- improved mobility and pliability scar tissue massage Mobilization Type Instrument Assisted,Myofascial Release Intensity/Depth Moderate Body Position Supine Comments use cupping today scar mobility, noted small spot red spottted hyperemia, pt understanding will go away. more mobility mid to lower, continue upper 1/2. Neuro Re-Education Treatment Balance Activities hurdles Details fwd receiprocal, lateral step to Surface floor Equipment //bars as needed Comments no UE support fwd, lateral light finger slide step to. PT-OP-T Assessment and Plan Start: 05/31/23 11:25 Freq: Status: Active Protocol: Document 06/28/23 14:35 SP (Rec: 06/28/23 15:58 SP [id number]) Physical Therapy Assessment Goals 4 Impairment Maura scores a 24 on the LE functional scale which places her at 60-79 percent impaired Civil Service Clerk Goal (LTG) Maura score on the LE functional scale is improved by 10 points or greater to reduce functional impairment LTG Duration 8 weeks 3 Impairment Decreased hip strength following L RONNY Short Term Goal (STG) Maura is educated on a HEP for improved hip strength 06/28/23: side hip abd, SLR, LAQ, standing hip abd TB #1. STG Duration 4 weeks Jail Goal (LTG) Maura is independent with a HEP and demonstrates improvement with hip strength LTG Duration 8 weeks 2 Impairment Decreased hip ROM s/p L RONNY and pt has precautions of no hip extension or hip ER Short Term Goal (STG) Maura is educated on a home program to improve hip ROM 06/28/23: Progressing: Independent AROM, progressing with resistance hip abd, LAQ. STG Duration 5 weeks progressing 06/28/23 Jail Goal (LTG) Maura presents with improved hip ROM into hip flexion and abduction 06/28/23: pt able to perform SLR and side hip abd on L AROM tires at 8 reps, TKE cues needed for last 2 reps. Not measured. LTG Duration 8 weeks progressing 06/28/23 1 Impairment left sided hip pain s/p RONNY that ranges from 2 at rest to 7/10 with positional changes Jail Goal (LTG) Maura reports a overall reduction in pain of the left hip LTG Duration 8 weeks Assessment Summary Assessment Pt good response to manual with increased scar mobility use cupping in PT, pt performing manual home and noticing decreased broad tightness in VL. Pt demonstrates good stability and form getting on/off floor with inagreement can do some yoga on floor that are within precautions, see therex. Pt improving ROM and safe controlled with light support receiprocal stepping and no AD gait with dynamic head turns and back stepping small range RLE leading maintaining precautions, stable no LOB. Physical Therapy Plan Frequency and Duration Frequency of Treatment 2x/Week Duration of treatment (weeks) 8 Plan of Care Start Date 05/31/23 Plan of Care End Date 07/26/23 Therapeutic Interventions Therapeutic Interventions Home Exercise Program,Manual Therapy,Self-Care/Home Management,Soft Tissue Mobilization,Therapeutic Exercises Modalities Cold Pack/Ice Massage Next Visit Focus/Plan Next Note Type Treatment Note Next Visit Plan Continue warm up on bike, gait training with SPC and stair training, use of CP modality L thigh swelling control & scar mobility.
--- NOTE | 2023-06-30 17:34 | PT.OTN ---
Current Diagnoses Pain in left hip (06/30/23) Stiffness of unspecified hip, not elsewhere classified (06/30/23) Muscle weakness (generalized) (06/30/23) Presence of left artificial hip joint (06/30/23) Physical Therapy Treatment Note PT-OP-A Visit Information Start: 05/31/23 11:25 Freq: Status: Active Protocol: Document 06/30/23 14:35 [facility] (Rec: 06/30/23 15:17 [facility] [id number]) Out-Patient Physical Therapy Visit Information Visit Information Visit Type Progress Note Visit Start Time 14:35 Visit Stop Time 15:15 Visit Number 10 PT-OP-B Current Condition Start: 05/31/23 11:25 Freq: Status: Active Protocol: Document 05/31/23 13:05 [facility] (Rec: 05/31/23 13:48 [facility] [id number]) Current Condition History of Current Condition Onset Date 05/25/23 Current Complaints s/p left RONNY, decreased hip ROM, pain, decreased strength History of Current Condition May 24 anterior approach total hip replacement pt is using a fww with sitting down or standing up she can feel incisional pain that feels burning but after a minute after changing positions she wont feel it as strong. She rates it as a 6/ 10 zing with positional change Walking is a 3-4/10 but if she tries to take too big of a step she jay get pain She has been wearing thigh highs and has had mild swelling only she is using a fww and its primarily to not over do. She has 3 stairs to get in at her house with a railing and has been doing fine with these. She is 6 days s/p hip surgery today Treatment Goals Patient/Caregiver Goals Pt's goals are to improve hip ROM, decrease pain, increase strength and walking distance PT-OP-C Subjective Start: 05/31/23 11:25 Freq: Status: Active Protocol: Document 06/30/23 14:35 [facility] (Rec: 06/30/23 15:17 [facility] [id number]) OP-PT Subjective Patient Comments Patient Comments pt notes it comfortable to get on and off the floor to do cat cow. Has MD visit next tuesday, she is pretty sore today from tuesday but she does have some bruising on the scar from the cupping. She feels the lumpiness from the scar has gotten better and the tightness in the anterior thigh has also gotten better. 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 Patient Reported Progress Improving PT-OP-F Manual Assessment Start: 05/31/23 11:25 Freq: Status: Active Protocol: Document 05/31/23 13:00 [facility] (Rec: 06/01/23 13:05 [facility] [id number]) Manual Assessments Soft Tissue Assessment Soft Tissue Mobility Assessment myofascial tightness of the left quad and anterior hip, pt still has her bandage on for 2 weeks so fascial tissue will need further assessment once bandage is removed PT-OP-G Mobility & Gait Start: 05/31/23 11:25 Freq: Status: Active Protocol: Document 05/31/23 13:00 [facility] (Rec: 06/01/23 13:05 [facility] [id number]) OP Mobility Evaluation Bed Mobility Rolling ind Supine to and from Sit ind Transfers Sit to Stand IND and uses FWW Bed to Chair Transfers IND Car Transfers IND Floor Transfers not attempted OP Gait Assessment Gait Gait Assistance Required: Standby Assistance Distance (Feet) 50 Able to Maintain Weight Bearing Status Yes During Gait Assistive Devices Assistive Device Front Wheeled Walker Gait Deviations General Gait Pattern Decreased Stride Length,Step- to Gait Factors Limiting Gait Function Factors Limiting Gait Function Decreased Activity Tolerance, Decreased Strength,Limited Range of Motion,Pain PT-OP-K Range of Motion Start: 05/31/23 11:25 Freq: Status: Active Protocol: Document 05/31/23 13:00 [facility] (Rec: 06/01/23 13:05 [facility] [id number]) Hip Goniometric Range of Motion Hip Left Hip ROM WFL No Testing Position Supine Flexion w/Knee Flexed 90 Abduction 5 Comments pt has anterior hip precautions of no hip extension or ER. She has pain with hip abduction and knee flexion greater than 90 degrees. It is difficult for her to extend her hip flat onto the table and she needs a towel roll under her left knee especially at first Right Hip ROM WFL Yes Testing Position Supine Hip ROM Limitations Hip ROM Limitations Soft Tissue Tightness,Pain, Swelling Comments ANTERIOR HIP PRECAUTIONS PT-OP-M Strength Start: 05/31/23 11:25 Freq: Status: Active Protocol: Document 05/31/23 13:00 [facility] (Rec: 06/01/23 13:05 [facility] [id number]) Hip Strength Hip Manual Muscle Testing Left Comments not formaly tested due to s/p RONNY 6 days ago but decreased AROM of the left hip PT-OP-Q Treatments Start: 05/31/23 11:25 Freq: Status: Active Protocol: Document 06/30/23 14:35 [facility] (Rec: 06/30/23 15:17 [facility] [id number]) Therapeutic Exercises Supine Exercises SLR Supine Exercise Name reviewed Side left Resistance AROM Reps/Minutes 10 reps Comments cued slight TKE during last 2 reps- tiring cues to activate the quads Sidelying Exercises hip abd Side left Resistance AROM Equipment Used kick stand top arm front table , 2 pillows between BLEs Reps/Minutes 2x 10 Comments tactile cues for stacked on side Sitting Exercises STS Equipment Used arms across chest Reps/Minutes x5 reps Comments good hip hinge and slow descent. LAQ Reps/Minutes 2x10 reps Manual Therapy Treatment Soft Tissue Mobilization L hip Mobilization Type Instrument Assisted,Myofascial Release Comments STMs and cupping over TFL, VL- improved mobility and pliability scar tissue massage Mobilization Type Instrument Assisted,Myofascial Release Intensity/Depth Moderate Body Position Supine Comments use cupping today scar mobility, noted small spot red spottted hyperemia, pt understanding will go away. more mobility mid to lower, continue upper 1/2. PT-OP-T Assessment and Plan Start: 05/31/23 11:25 Freq: Status: Active Protocol: Document 06/30/23 14:35 [facility] (Rec: 06/30/23 15:17 [facility] [id number]) Physical Therapy Assessment Rehab Potential Rehabilitation Potential Excellent Evaluation Complexity Number of Personal Factors/Comorbidities 0 Number of Body Systems Impaired 1-2 Clinical Presentation at Evaluation Stable Impairments Impairments Activity Tolerance,Balance, Functional Activities, Functional Mobility,Pain,ROM, Soft Tissue Mobility Goals 4 Impairment Maura scores a 24 on the LE functional scale which places her at 60-79 percent impaired Logistics Supervisor Goal (LTG) Maura score on the LE functional scale is improved by 10 points or greater to reduce functional impairment LTG Duration 8 weeks 3 Impairment Decreased hip strength following L RONNY Short Term Goal (STG) Maura is educated on a HEP for improved hip strength 06/28/23: side hip abd, SLR, LAQ, standing hip abd TB #1. STG Duration 4 weeks Logistics Supervisor Goal (LTG) Maura is independent with a HEP and demonstrates improvement with hip strength LTG Duration 8 weeks 2 Impairment Decreased hip ROM s/p L RONNY and pt has precautions of no hip extension or hip ER Short Term Goal (STG) Maura is educated on a home program to improve hip ROM 06/28/23: Progressing: Independent AROM, progressing with resistance hip abd, LAQ. STG Duration 5 weeks progressing 06/28/23 Logistics Supervisor Goal (LTG) Maura presents with improved hip ROM into hip flexion and abduction 06/28/23: pt able to perform SLR and side hip abd on L AROM tires at 8 reps, TKE cues needed for last 2 reps. Not measured. LTG Duration 8 weeks progressing 06/28/23 1 Impairment left sided hip pain s/p RONNY that ranges from 2 at rest to 7/10 with positional changes Logistics Supervisor Goal (LTG) Maura reports a overall reduction in pain of the left hip pt notes her symptoms are now a 3-4/10 and mainly when she first gets up. Once she is up and moving around its more of a 2 LTG Duration 8 weeks Progress Towards Goals Progress Towards Goals Progressing Toward Goals Assessment Summary Assessment Maura is doing well with her rehab and progressing towards her goals. She is now walking with a SPC and at times walking IND at home. Her strength is improving and she is now able to tolerated hip abduction well. Pain is slowly decreasing and is primarily with change of position from sit-stand. 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 Physical Therapy Plan Frequency and Duration Frequency of Treatment 2x/Week Duration of treatment (weeks) 8 Plan of Care Start Date 06/30/23 Plan of Care End Date 08/25/23 Therapeutic Interventions Therapeutic Interventions Home Exercise Program,Manual Therapy,Self-Care/Home Management,Soft Tissue Mobilization,Therapeutic Exercises Modalities Cold Pack/Ice Massage Next Visit Focus/Plan Next Visit Plan trial of balance training next visit on shuttle balance to begin working towards walking the boat ramps. Continue working on progressive hip strengthening
--- NOTE | 2023-06-30 17:35 | PT.OPPOC ---
Physical, Occupational & Speech Therapy At [facility] Current Diagnoses Pain in left hip (06/30/23) Stiffness of unspecified hip, not elsewhere classified (06/30/23) Muscle weakness (generalized) (06/30/23) Presence of left artificial hip joint (06/30/23) Visit Care Team Role Provider Type MARI Barrera Family Provider Advanced Personal Financial Planner Primary Care Provider Specialty: Family Practice Address: [address] [place] [address], [address] Email: [email or web address] Montrell Waite MD Attending Provider Non-Staff Referring Provider Specialty: Orthopedic Surgery Address: [address] [place] [address] , [place], [address] Fax: Email: Plan Of Care PT-OP-T Assessment and Plan Start: 05/31/23 11:25 Freq: Status: Active Protocol: Document 06/30/23 14:35 [facility] (Rec: 06/30/23 15:17 [facility] [id number]) Physical Therapy Assessment Rehab Potential Rehabilitation Potential Excellent Evaluation Complexity Number of Personal Factors/Comorbidities 0 Number of Body Systems Impaired 1-2 Clinical Presentation at Evaluation Stable Impairments Impairments Activity Tolerance,Balance, Functional Activities, Functional Mobility,Pain,ROM, Soft Tissue Mobility Goals 4 Impairment Maura scores a 24 on the LE functional scale which places her at 60-79 percent impaired Long-Term Goal (LTG) Maura score on the LE functional scale is improved by 10 points or greater to reduce functional impairment LTG Duration 8 weeks 3 Impairment Decreased hip strength following L RONNY Short Term Goal (STG) Maura is educated on a HEP for improved hip strength 06/28/23: side hip abd, SLR, LAQ, standing hip abd TB #1. STG Duration 4 weeks Long-Term Goal (LTG) Maura is independent with a HEP and demonstrates improvement with hip strength LTG Duration 8 weeks 2 Impairment Decreased hip ROM s/p L RONNY and pt has precautions of no hip extension or hip ER Short Term Goal (STG) Maura is educated on a home program to improve hip ROM 06/28/23: Progressing: Independent AROM, progressing with resistance hip abd, LAQ. STG Duration 5 weeks progressing 06/28/23 Long-Term Goal (LTG) Maura presents with improved hip ROM into hip flexion and abduction 06/28/23: pt able to perform SLR and side hip abd on L AROM tires at 8 reps, TKE cues needed for last 2 reps. Not measured. LTG Duration 8 weeks progressing 06/28/23 1 Impairment left sided hip pain s/p RONNY that ranges from 2 at rest to 7/10 with positional changes Machine Hand Goal (LTG) Maura reports a overall reduction in pain of the left hip pt notes her symptoms are now a 3-4/10 and mainly when she first gets up. Once she is up and moving around its more of a 2 LTG Duration 8 weeks Progress Towards Goals Progress Towards Goals Progressing Toward Goals Assessment Summary Assessment Maura is doing well with her rehab and progressing towards her goals. She is now walking with a SPC and at times walking IND at home. Her strength is improving and she is now able to tolerated hip abduction well. Pain is slowly decreasing and is primarily with change of position from sit-stand. 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 Physical Therapy Plan Frequency and Duration Frequency of Treatment 2x/Week Duration of treatment (weeks) 8 Plan of Care Start Date 06/30/23 Plan of Care End Date 08/25/23 Therapeutic Interventions Therapeutic Interventions Home Exercise Program,Manual Therapy,Self-Care/Home Management,Soft Tissue Mobilization,Therapeutic Exercises Modalities Cold Pack/Ice Massage Next Visit Focus/Plan Next Visit Plan trial of balance training next visit on shuttle balance to begin working towards walking the boat ramps. Continue working on progressive hip strengthening Plan of Care Dates Plan of Care Start Date 06/30/23 Plan of Care End Date 08/25/23 Electronically Signed by: Norah Yu, PT 06/30/23 7918 If you are in agreement with this Plan of Care, please return a signed and dated copy. I have reviewed this Plan of Care and certify that the skilled therapy services above are required to meet the patient?s needs. Physician Signature Date Printed Name and Credentials Clinical Instructor Signature Printed Name and Credentials
--- NOTE | 2023-07-07 13:43 | PT.OTN ---
Current Diagnoses Pain in left hip (07/07/23) Stiffness of unspecified hip, not elsewhere classified (07/07/23) Muscle weakness (generalized) (07/07/23) Presence of left artificial hip joint (07/07/23) Physical Therapy Treatment Note PT-OP-A Visit Information Start: 05/31/23 11:25 Freq: Status: Active Protocol: Document 07/07/23 13:03 SP (Rec: 07/07/23 13:50 SP [id number]) Out-Patient Physical Therapy Visit Information Visit Information Visit Type Treatment Note Visit Note 03/19 post PN Visit Start Time 13:03 Visit Stop Time 13:43 Visit Number 11 Number of BRUISE TRIMMER Visits 1 Evaluation Information Evaluation Date 05/31/23 Precautions Precautions Anterior L hip precautions PT-OP-B Current Condition Start: 05/31/23 11:25 Freq: Status: Active Protocol: Document 05/31/23 13:05 [facility] (Rec: 05/31/23 13:48 [facility] [id number]) Current Condition History of Current Condition Onset Date 05/25/23 Current Complaints s/p left RONNY, decreased hip ROM, pain, decreased strength History of Current Condition May 24 anterior approach total hip replacement pt is using a fww with sitting down or standing up she can feel incisional pain that feels burning but after a minute after changing positions she wont feel it as strong. She rates it as a 6/ 10 zing with positional change Walking is a 3-4/10 but if she tries to take too big of a step she jay get pain She has been wearing thigh highs and has had mild swelling only she is using a fww and its primarily to not over do. She has 3 stairs to get in at her house with a railing and has been doing fine with these. She is 6 days s/p hip surgery today Treatment Goals Patient/Caregiver Goals Pt's goals are to improve hip ROM, decrease pain, increase strength and walking distance PT-OP-C Subjective Start: 05/31/23 11:25 Freq: Status: Active Protocol: Document 07/07/23 13:03 SP (Rec: 07/07/23 13:50 SP [id number]) OP-PT Subjective Patient Comments Patient Comments Pt report stopped taking Tylenol. Did have some R lateral knee discomfort with descending stairs and bend/ squatting. FOllowed up with ortho: reviewed her Yoga poses ok to return to, cleared progressing into some ext but not excessive ext Warrier II or cobra or (never pigeon), etc. PT-OP-F Manual Assessment Start: 05/31/23 11:25 Freq: Status: Active Protocol: Document 05/31/23 13:00 [facility] (Rec: 06/01/23 13:05 [facility] [id number]) Manual Assessments Soft Tissue Assessment Soft Tissue Mobility Assessment myofascial tightness of the left quad and anterior hip, pt still has her bandage on for 2 weeks so fascial tissue will need further assessment once bandage is removed PT-OP-G Mobility & Gait Start: 05/31/23 11:25 Freq: Status: Active Protocol: Document 05/31/23 13:00 [facility] (Rec: 06/01/23 13:05 [facility] [id number]) OP Mobility Evaluation Bed Mobility Rolling ind Supine to and from Sit ind Transfers Sit to Stand IND and uses FWW Bed to Chair Transfers IND Car Transfers IND Floor Transfers not attempted OP Gait Assessment Gait Gait Assistance Required: Standby Assistance Distance (Feet) 50 Able to Maintain Weight Bearing Status Yes During Gait Assistive Devices Assistive Device Front Wheeled Walker Gait Deviations General Gait Pattern Decreased Stride Length,Step- to Gait Factors Limiting Gait Function Factors Limiting Gait Function Decreased Activity Tolerance, Decreased Strength,Limited Range of Motion,Pain PT-OP-K Range of Motion Start: 05/31/23 11:25 Freq: Status: Active Protocol: Document 05/31/23 13:00 [facility] (Rec: 06/01/23 13:05 [facility] [id number]) Hip Goniometric Range of Motion Hip Left Hip ROM WFL No Testing Position Supine Flexion w/Knee Flexed 90 Abduction 5 Comments pt has anterior hip precautions of no hip extension or ER. She has pain with hip abduction and knee flexion greater than 90 degrees. It is difficult for her to extend her hip flat onto the table and she needs a towel roll under her left knee especially at first Right Hip ROM WFL Yes Testing Position Supine Hip ROM Limitations Hip ROM Limitations Soft Tissue Tightness,Pain, Swelling Comments ANTERIOR HIP PRECAUTIONS PT-OP-M Strength Start: 05/31/23 11:25 Freq: Status: Active Protocol: Document 05/31/23 13:00 [facility] (Rec: 06/01/23 13:05 [facility] [id number]) Hip Strength Hip Manual Muscle Testing Left Comments not formaly tested due to s/p RONNY 6 days ago but decreased AROM of the left hip PT-OP-Q Treatments Start: 05/31/23 11:25 Freq: Status: Active Protocol: Document 07/07/23 13:03 SP (Rec: 07/07/23 13:50 SP [id number]) Cardio Equipment Bicycle (Upright) Duration (Minutes) 6 Resistance 4 Seat Position 3 Other 54 RPMs Gym Equipment Shuttle Recovery bilateral squat Details cued knee alignment with fid foot. Resistance 37# (1 navy) Reps/Time 2x 12 Therapeutic Exercises Supine Exercises bridge Supine Exercise Name segmental bridge- added to HEP Side bilateral Resistance AROM> #1 blue band at thighs Reps/Minutes 5 SH x10 Comments good form, pnfree SLR Supine Exercise Name reviewed Side left Resistance AROM Reps/Minutes 2x10 reps Comments cued slight TKE reset before left. AROM hip abduction Supine Exercise Name review Side left Reps/Minutes x10 Comments not need review again Sidelying Exercises clamshel Sidelying Exercise Name discussed can add AROM Comments check next tx. Manual Therapy Treatment Soft Tissue Mobilization L hip Mobilization Type Instrument Assisted,Myofascial Release Comments STMs and cupping over TFL, VL- improved mobility and pliability PT-OP-T Assessment and Plan Start: 05/31/23 11:25 Freq: Status: Active Protocol: Document 07/07/23 13:03 SP (Rec: 07/07/23 13:50 SP [id number]) Physical Therapy Assessment Goals 4 Impairment Maura scores a 24 on the LE functional scale which places her at 60-79 percent impaired Intermediate Goal (LTG) Maura score on the LE functional scale is improved by 10 points or greater to reduce functional impairment LTG Duration 8 weeks 3 Impairment Decreased hip strength following L RONNY Short Term Goal (STG) Maura is educated on a HEP for improved hip strength 06/28/23: side hip abd, SLR, LAQ, standing hip abd TB #1. STG Duration 4 weeks Intermediate Goal (LTG) Maura is independent with a HEP and demonstrates improvement with hip strength LTG Duration 8 weeks 2 Impairment Decreased hip ROM s/p L RONNY and pt has precautions of no hip extension or hip ER Short Term Goal (STG) Maura is educated on a home program to improve hip ROM 06/28/23: Progressing: Independent AROM, progressing with resistance hip abd, LAQ. STG Duration 5 weeks progressing 06/28/23 Intermediate Goal (LTG) Maura presents with improved hip ROM into hip flexion and abduction 06/28/23: pt able to perform SLR and side hip abd on L AROM tires at 8 reps, TKE cues needed for last 2 reps. Not measured. LTG Duration 8 weeks progressing 06/28/23 1 Impairment left sided hip pain s/p RONNY that ranges from 2 at rest to 7/10 with positional changes Intermediate Goal (LTG) Maura reports a overall reduction in pain of the left hip pt notes her symptoms are now a 3-4/10 and mainly when she first gets up. Once she is up and moving around its more of a 2 LTG Duration 8 weeks Assessment Summary Assessment Pt good fascia mobiltiy post manual. SHe responded well to ther ex, progressed LE strengthening within shuttle recovery and per pt from ortho appt able to progress hip ext neutral, added bridging with hip abd resistance today withno adverse affects. Discussed adding aROM/TB #1 clamshells but not demonstrated today. Will review/check next tx. Next tx continue gait endurance phases in mirror. Physical Therapy Plan Frequency and Duration Frequency of Treatment 2x/Week Duration of treatment (weeks) 8 Plan of Care Start Date 06/30/23 Plan of Care End Date 08/25/23 Therapeutic Interventions Therapeutic Interventions Home Exercise Program,Manual Therapy,Self-Care/Home Management,Soft Tissue Mobilization,Therapeutic Exercises Modalities Cold Pack/Ice Massage Next Visit Focus/Plan Next Note Type Treatment Note Next Visit Plan Assess response to shuttle recovery, resisted bridging and discussed return to clamshells. POC: trial of balance training next visit on shuttle balance to begin working towards walking the boat ramps. Continue working on progressive hip strengthening
--- NOTE | 2023-07-12 13:41 | PT.OTN ---
Current Diagnoses Pain in left hip (07/12/23) Stiffness of unspecified hip, not elsewhere classified (07/12/23) Muscle weakness (generalized) (07/12/23) Presence of left artificial hip joint (07/12/23) Physical Therapy Treatment Note PT-OP-A Visit Information Start: 05/31/23 11:25 Freq: Status: Active Protocol: Document 07/12/23 13:01 SP (Rec: 07/12/23 13:52 SP [id number]) Out-Patient Physical Therapy Visit Information Visit Information Visit Type Treatment Note Visit Note 3/10 visits post PN Visit Start Time 13:01 Visit Stop Time 13:41 Visit Number 12 Number of DIRECTOR OF PLACEMENT Visits 2 Evaluation Information Evaluation Date 05/31/23 Precautions Precautions Anterior L hip precautions PT-OP-B Current Condition Start: 05/31/23 11:25 Freq: Status: Active Protocol: Document 05/31/23 13:05 [facility] (Rec: 05/31/23 13:48 [facility] [id number]) Current Condition History of Current Condition Onset Date 05/25/23 Current Complaints s/p left RONNY, decreased hip ROM, pain, decreased strength History of Current Condition May 24 anterior approach total hip replacement pt is using a fww with sitting down or standing up she can feel incisional pain that feels burning but after a minute after changing positions she wont feel it as strong. She rates it as a 6/ 10 zing with positional change Walking is a 3-4/10 but if she tries to take too big of a step she jay get pain She has been wearing thigh highs and has had mild swelling only she is using a fww and its primarily to not over do. She has 3 stairs to get in at her house with a railing and has been doing fine with these. She is 6 days s/p hip surgery today Treatment Goals Patient/Caregiver Goals Pt's goals are to improve hip ROM, decrease pain, increase strength and walking distance PT-OP-C Subjective Start: 05/31/23 11:25 Freq: Status: Active Protocol: Document 07/12/23 13:01 SP (Rec: 07/12/23 13:52 SP [id number]) OP-PT Subjective Patient Comments Patient Comments Pt reported easier getting on/ off floor and was able to progress into down dog cleared to do. She has been using bike for ROM 2x/day and finds ease of tightness before going to bed. Not quite able to sit back into child's pose due to L thigh tightness but little more range after do exercises. Wanting to assimulate stepping up side ways and over items to return to getting on her boat. PT-OP-F Manual Assessment Start: 05/31/23 11:25 Freq: Status: Active Protocol: Document 05/31/23 13:00 [facility] (Rec: 06/01/23 13:05 [facility] [id number]) Manual Assessments Soft Tissue Assessment Soft Tissue Mobility Assessment myofascial tightness of the left quad and anterior hip, pt still has her bandage on for 2 weeks so fascial tissue will need further assessment once bandage is removed PT-OP-G Mobility & Gait Start: 05/31/23 11:25 Freq: Status: Active Protocol: Document 05/31/23 13:00 [facility] (Rec: 06/01/23 13:05 [facility] [id number]) OP Mobility Evaluation Bed Mobility Rolling ind Supine to and from Sit ind Transfers Sit to Stand IND and uses FWW Bed to Chair Transfers IND Car Transfers IND Floor Transfers not attempted OP Gait Assessment Gait Gait Assistance Required: Standby Assistance Distance (Feet) 50 Able to Maintain Weight Bearing Status Yes During Gait Assistive Devices Assistive Device Front Wheeled Walker Gait Deviations General Gait Pattern Decreased Stride Length,Step- to Gait Factors Limiting Gait Function Factors Limiting Gait Function Decreased Activity Tolerance, Decreased Strength,Limited Range of Motion,Pain PT-OP-K Range of Motion Start: 05/31/23 11:25 Freq: Status: Active Protocol: Document 05/31/23 13:00 [facility] (Rec: 06/01/23 13:05 [facility] [id number]) Hip Goniometric Range of Motion Hip Left Hip ROM WFL No Testing Position Supine Flexion w/Knee Flexed 90 Abduction 5 Comments pt has anterior hip precautions of no hip extension or ER. She has pain with hip abduction and knee flexion greater than 90 degrees. It is difficult for her to extend her hip flat onto the table and she needs a towel roll under her left knee especially at first Right Hip ROM WFL Yes Testing Position Supine Hip ROM Limitations Hip ROM Limitations Soft Tissue Tightness,Pain, Swelling Comments ANTERIOR HIP PRECAUTIONS PT-OP-M Strength Start: 05/31/23 11:25 Freq: Status: Active Protocol: Document 05/31/23 13:00 [facility] (Rec: 06/01/23 13:05 [facility] [id number]) Hip Strength Hip Manual Muscle Testing Left Comments not formaly tested due to s/p RONNY 6 days ago but decreased AROM of the left hip PT-OP-Q Treatments Start: 05/31/23 11:25 Freq: Status: Active Protocol: Document 07/12/23 13:01 SP (Rec: 07/12/23 13:52 SP [id number]) Cardio Equipment Bicycle (Upright) Duration (Minutes) 8 Resistance 4 Seat Position 3 Other 54 RPMs Gym Equipment Shuttle Balance red Details f/b/lateral: WBOS, stagger stance Comments wt shifting HTs EC up to 10 sec Therapeutic Exercises Standing Exercises hip flexion/march Standing Exercise Name added to HEP Side bilateral Resistance Tb #2 at feet Reps/Minutes 3x5 rep Comments muscle tiring hip abd Standing Exercise Name added to HEP Side bilateral Resistance Tb #2 at feet Reps/Minutes 3x5 reps Comments muscle tiring Other Exercises YOGA review within precautions Other Exercise Name cat/cow, bird dog, plank off feet, down dog Comments cued slower pacing transition, Neuro Re-Education Treatment Balance Activities step assimulation boat Equipment 2 stacked balance beams, 1 michelle bwtn 4step and beam ( dock/boat gap) Comments lateral stepping R into boat ( 4 step>floor), 6 gap step up /over and slight descend. Good response, cued slow stepping control not need UE support but has on boat to use . hurdles Details fwd receiprocal, lateral step to Surface 5 hurdles on mat. Equipment near rail Comments no UE support PT-OP-T Assessment and Plan Start: 05/31/23 11:25 Freq: Status: Active Protocol: Document 07/12/23 13:01 SP (Rec: 07/12/23 13:52 SP [id number]) Physical Therapy Assessment Goals 4 Impairment Maura scores a 24 on the LE functional scale which places her at 60-79 percent impaired Director Of Hotel Operations Goal (LTG) Maura score on the LE functional scale is improved by 10 points or greater to reduce functional impairment LTG Duration 8 weeks 3 Impairment Decreased hip strength following L RONNY Short Term Goal (STG) Maura is educated on a HEP for improved hip strength 06/28/23: side hip abd, SLR, LAQ, standing hip abd TB #1. 6/4/24: Added stand: TB april, abd. STG Duration 4 weeks progressing 07/12/23 [employer] Of [employer] Goal (LTG) Maura is independent with a HEP and demonstrates improvement with hip strength LTG Duration 8 weeks 2 Impairment Decreased hip ROM s/p L RONNY and pt has precautions of no hip extension or hip ER Short Term Goal (STG) Maura is educated on a home program to improve hip ROM 06/28/23: Progressing: Independent AROM, progressing with resistance hip abd, LAQ. STG Duration 5 weeks progressing 06/28/23 [employer] Of [employer] Goal (LTG) Maura presents with improved hip ROM into hip flexion and abduction 06/28/23: pt able to perform SLR and side hip abd on L AROM tires at 8 reps, TKE cues needed for last 2 reps. Not measured. LTG Duration 8 weeks progressing 06/28/23 1 Impairment left sided hip pain s/p RONNY that ranges from 2 at rest to 7/10 with positional changes Prison Goal (LTG) Maura reports a overall reduction in pain of the left hip pt notes her symptoms are now a 3-4/10 and mainly when she first gets up. Once she is up and moving around its more of a 2 LTG Duration 8 weeks Assessment Summary Assessment Pt responded well to added resisted hip flexion and abd strengthening for support ability to lift LE to get on boat, PLOF. Progressed michelle stepping and assimulation stepping over raised step and over to low surface to continue carryover assimulation getting on her boat with ability to perform without UE support and demonstrated larger lateral stride with LLE being to stance LE without any pain or instability. She will have a handle on boat for support. Physical Therapy Plan Frequency and Duration Frequency of Treatment 2x/Week Duration of treatment (weeks) 8 Plan of Care Start Date 06/30/23 Plan of Care End Date 08/25/23 Therapeutic Interventions Therapeutic Interventions Home Exercise Program,Manual Therapy,Self-Care/Home Management,Soft Tissue Mobilization,Therapeutic Exercises Modalities Cold Pack/Ice Massage Next Visit Focus/Plan Next Note Type Treatment Note Next Visit Plan Assess response added resisted march, hip abd. Continue: balance training next visit on shuttle balance to begin working towards walking the boat ramps. POC: Continue working on progressive hip strengthening
--- NOTE | 2023-07-14 16:24 | PT.OTN ---
Current Diagnoses Pain in left hip (07/14/23) Stiffness of unspecified hip, not elsewhere classified (07/14/23) Muscle weakness (generalized) (07/14/23) Presence of left artificial hip joint (07/14/23) Physical Therapy Treatment Note PT-OP-A Visit Information Start: 05/31/23 11:25 Freq: Status: Active Protocol: Document 07/14/23 11:15 [facility] (Rec: 07/14/23 14:32 [facility] [id number]) Out-Patient Physical Therapy Visit Information Visit Information Visit Type Treatment Note Visit Start Time 11:20 Visit Stop Time 12:00 Visit Number 13 Number of STENCIL TYPIST Visits 0 PT-OP-B Current Condition Start: 05/31/23 11:25 Freq: Status: Active Protocol: Document 05/31/23 13:05 [facility] (Rec: 05/31/23 13:48 [facility] [id number]) Current Condition History of Current Condition Onset Date 05/25/23 Current Complaints s/p left RONNY, decreased hip ROM, pain, decreased strength History of Current Condition May 24 anterior approach total hip replacement pt is using a fww with sitting down or standing up she can feel incisional pain that feels burning but after a minute after changing positions she wont feel it as strong. She rates it as a 6/ 10 zing with positional change Walking is a 3-4/10 but if she tries to take too big of a step she jay get pain She has been wearing thigh highs and has had mild swelling only she is using a fww and its primarily to not over do. She has 3 stairs to get in at her house with a railing and has been doing fine with these. She is 6 days s/p hip surgery today Treatment Goals Patient/Caregiver Goals Pt's goals are to improve hip ROM, decrease pain, increase strength and walking distance PT-OP-C Subjective Start: 05/31/23 11:25 Freq: Status: Active Protocol: Document 07/14/23 11:24 [facility] (Rec: 07/14/23 12:05 [facility] [id number]) OP-PT Subjective Patient Comments Patient Comments pt notes it still gets stiff in the am and if she wakes up at night but once she gets up and moves its fine, the bike realy helps to loosen her hip up. She describes her hip as tight and tender but not pain. The numb area is shrinking. She has been released to do bridges and 1/2 kneeling positions PT-OP-F Manual Assessment Start: 05/31/23 11:25 Freq: Status: Active Protocol: Document 05/31/23 13:00 [facility] (Rec: 06/01/23 13:05 [facility] [id number]) Manual Assessments Soft Tissue Assessment Soft Tissue Mobility Assessment myofascial tightness of the left quad and anterior hip, pt still has her bandage on for 2 weeks so fascial tissue will need further assessment once bandage is removed PT-OP-G Mobility & Gait Start: 05/31/23 11:25 Freq: Status: Active Protocol: Document 05/31/23 13:00 [facility] (Rec: 06/01/23 13:05 [facility] [id number]) OP Mobility Evaluation Bed Mobility Rolling ind Supine to and from Sit ind Transfers Sit to Stand IND and uses FWW Bed to Chair Transfers IND Car Transfers IND Floor Transfers not attempted OP Gait Assessment Gait Gait Assistance Required: Standby Assistance Distance (Feet) 50 Able to Maintain Weight Bearing Status Yes During Gait Assistive Devices Assistive Device Front Wheeled Walker Gait Deviations General Gait Pattern Decreased Stride Length,Step- to Gait Factors Limiting Gait Function Factors Limiting Gait Function Decreased Activity Tolerance, Decreased Strength,Limited Range of Motion,Pain PT-OP-K Range of Motion Start: 05/31/23 11:25 Freq: Status: Active Protocol: Document 05/31/23 13:00 [facility] (Rec: 06/01/23 13:05 [facility] [id number]) Hip Goniometric Range of Motion Hip Left Hip ROM WFL No Testing Position Supine Flexion w/Knee Flexed 90 Abduction 5 Comments pt has anterior hip precautions of no hip extension or ER. She has pain with hip abduction and knee flexion greater than 90 degrees. It is difficult for her to extend her hip flat onto the table and she needs a towel roll under her left knee especially at first Right Hip ROM WFL Yes Testing Position Supine Hip ROM Limitations Hip ROM Limitations Soft Tissue Tightness,Pain, Swelling Comments ANTERIOR HIP PRECAUTIONS PT-OP-M Strength Start: 05/31/23 11:25 Freq: Status: Active Protocol: Document 05/31/23 13:00 [facility] (Rec: 06/01/23 13:05 [facility] [id number]) Hip Strength Hip Manual Muscle Testing Left Comments not formaly tested due to s/p RONNY 6 days ago but decreased AROM of the left hip PT-OP-Q Treatments Start: 05/31/23 11:25 Freq: Status: Active Protocol: Document 07/14/23 11:15 [facility] (Rec: 07/14/23 14:32 [facility] [id number]) Therapeutic Exercises Standing Exercises standing single leg stance Reps/Minutes hold 30 sec to 1 min Comments pt to practice balance at home to prepare for stepping onto the boat Manual Therapy Treatment Soft Tissue Mobilization L hip Mobilization Type Myofascial Release Comments STMs over TFL and quads to help reduce tightness and improve mobility scar tissue massage Mobilization Type Instrument Assisted,Myofascial Release Intensity/Depth Moderate Body Position Supine Comments manual work on either side of the scar and proximal portion of the scar left anterior hip Self-Care/Home Management Treatment Education Patient Education Home Exercise Program Other Education HEP reviewed and pt was given handouts for hip flexion and hip abduction with resistance. pt educated in single leg stance activities PT-OP-T Assessment and Plan Start: 05/31/23 11:25 Freq: Status: Active Protocol: Document 07/14/23 11:15 [facility] (Rec: 07/14/23 16:22 [facility] [id number]) Physical Therapy Assessment Assessment Summary Assessment I reviewed HEP with Maura and we talked about adding in single leg balance activities for home. She is doing well with resisted hip flexion and abduction. Maura asked to focus on facial release over her left anterior hip and quad today so time was spent on this. She is progressing well towards her goal of getting onto her boat later this summer Physical Therapy Plan Frequency and Duration Frequency of Treatment 2x/Week Duration of treatment (weeks) 8 Plan of Care Start Date 06/30/23 Plan of Care End Date 08/25/23 Therapeutic Interventions Therapeutic Interventions Home Exercise Program,Manual Therapy,Self-Care/Home Management,Soft Tissue Mobilization,Therapeutic Exercises Modalities Cold Pack/Ice Massage Next Visit Focus/Plan Next Note Type Treatment Note Next Visit Plan continue working on functional activities to take a step into her boat including balance activites and walking up/down boat ramp
--- NOTE | 2023-07-19 13:50 | PT.OTN ---
Current Diagnoses Pain in left hip (07/19/23) Stiffness of unspecified hip, not elsewhere classified (07/19/23) Muscle weakness (generalized) (07/19/23) Presence of left artificial hip joint (07/19/23) Physical Therapy Treatment Note PT-OP-A Visit Information Start: 05/31/23 11:25 Freq: Status: Active Protocol: Document 07/19/23 13:01 SP (Rec: 07/19/23 13:53 SP [id number]) Out-Patient Physical Therapy Visit Information Visit Information Visit Type Treatment Note Visit Note FINISHED GOODS STOCK CLERK Jame shadowed pt and FINISHED GOODS STOCK CLERK Christina with permission of pt. 15 more visits approved (2nd set), today is 03/24 used. Visit Start Time 13:01 Visit Stop Time 13:50 Visit Number 14 Number of FINISHED GOODS STOCK CLERK Visits 1 Evaluation Information Evaluation Date 05/31/23 Precautions Precautions 07/25/23: s/p Anterior L hip, precautions PT-OP-B Current Condition Start: 05/31/23 11:25 Freq: Status: Active Protocol: Document 05/31/23 13:05 AM[facility] (Rec: 05/31/23 13:48 AMH [id number]) Current Condition History of Current Condition Onset Date 05/25/23 Current Complaints s/p left RONNY, decreased hip ROM, pain, decreased strength History of Current Condition May 24 anterior approach total hip replacement pt is using a fww with sitting down or standing up she can feel incisional pain that feels burning but after a minute after changing positions she wont feel it as strong. She rates it as a 6/ 10 zing with positional change Walking is a 3-4/10 but if she tries to take too big of a step she jay get pain She has been wearing thigh highs and has had mild swelling only she is using a fww and its primarily to not over do. She has 3 stairs to get in at her house with a railing and has been doing fine with these. She is 6 days s/p hip surgery today Treatment Goals Patient/Caregiver Goals Pt's goals are to improve hip ROM, decrease pain, increase strength and walking distance PT-OP-C Subjective Start: 05/31/23 11:25 Freq: Status: Active Protocol: Document 07/19/23 13:01 SP (Rec: 07/19/23 13:53 SP [id number]) OP-PT Subjective Patient Comments Patient Comments Pt reports has been feeling some occasional nerve pain L anterior hip and thinks nerves waking up. Pt next follow up 6 month, fall. Is now walking up/down street hills and finds at times feels achy in hips so knows mindful of tolearnce. PT-OP-F Manual Assessment Start: 05/31/23 11:25 Freq: Status: Active Protocol: Document 05/31/23 13:00 [facility] (Rec: 06/01/23 13:05 [facility] [id number]) Manual Assessments Soft Tissue Assessment Soft Tissue Mobility Assessment myofascial tightness of the left quad and anterior hip, pt still has her bandage on for 2 weeks so fascial tissue will need further assessment once bandage is removed PT-OP-G Mobility & Gait Start: 05/31/23 11:25 Freq: Status: Active Protocol: Document 05/31/23 13:00 AMH (Rec: 06/01/23 13:05 [facility] [id number]) OP Mobility Evaluation Bed Mobility Rolling ind Supine to and from Sit ind Transfers Sit to Stand IND and uses FWW Bed to Chair Transfers IND Car Transfers IND Floor Transfers not attempted OP Gait Assessment Gait Gait Assistance Required: Standby Assistance Distance (Feet) 50 Able to Maintain Weight Bearing Status Yes During Gait Assistive Devices Assistive Device Front Wheeled Walker Gait Deviations General Gait Pattern Decreased Stride Length,Step- to Gait Factors Limiting Gait Function Factors Limiting Gait Function Decreased Activity Tolerance, Decreased Strength,Limited Range of Motion,Pain PT-OP-K Range of Motion Start: 05/31/23 11:25 Freq: Status: Active Protocol: Document 05/31/23 13:00 AMH (Rec: 06/01/23 13:05 [facility] [id number]) Hip Goniometric Range of Motion Hip Left Hip ROM WFL No Testing Position Supine Flexion w/Knee Flexed 90 Abduction 5 Comments pt has anterior hip precautions of no hip extension or ER. She has pain with hip abduction and knee flexion greater than 90 degrees. It is difficult for her to extend her hip flat onto the table and she needs a towel roll under her left knee especially at first Right Hip ROM WFL Yes Testing Position Supine Hip ROM Limitations Hip ROM Limitations Soft Tissue Tightness,Pain, Swelling Comments ANTERIOR HIP PRECAUTIONS PT-OP-M Strength Start: 05/31/23 11:25 Freq: Status: Active Protocol: Document 05/31/23 13:00 AMH (Rec: 06/01/23 13:05 [facility] [id number]) Hip Strength Hip Manual Muscle Testing Left Comments not formaly tested due to s/p RONNY 6 days ago but decreased AROM of the left hip PT-OP-Q Treatments Start: 05/31/23 11:25 Freq: Status: Active Protocol: Document 07/19/23 13:01 SP (Rec: 07/19/23 13:53 SP [id number]) Cardio Equipment Bicycle (Upright) Duration (Minutes) 8 Resistance 4 Seat Position 3 Other 54 RPMs Therapeutic Exercises Supine Exercises bridge Supine Exercise Name segmental bridge- Continue during yoga sequence Side bilateral Comments verbal not performed SLR Supine Exercise Name Discussed continue as HEP home Comments verbal not performed Prone Exercises plank Prone Exercise Name review form next tx Equipment Used forearm/feet Sidelying Exercises clamshel Sidelying Exercise Name discussed verbal continue with resistance Side left Comments recheck next tx. Sitting Exercises stretching Sitting Exercise Name added: hip IR and ER Side left Reps/Minutes 20 SH x2 each Comments TA cues, improved LE lift, need supportive due to weakness anderson tap Sitting Exercise Name added to HEP: Side left Reps/Minutes 2x10 reps Comments L foot up R anderson- hip flex/ER strengthening Standing Exercises lunges Standing Exercise Name add next tx SLS star glides Standing Exercise Name added to HEP Side left Resistance AROM Equipment Used slider under R foot, counter as needed for support Comments cued knee with midfoot, hip hinge reach hip flexion/march Standing Exercise Name review next tx, continue TB step ups Standing Exercise Name verbal review HEP Side right Equipment Used 8-11 step Comments cued heel drive, glut firing wt shift over stance LE hip abd Standing Exercise Name verbal review continue as HEP Side bilateral Resistance Tb #2 at feet Neuro Re-Education Treatment Balance Activities step assimulation boat Equipment 2 stacked balance beams, 1 michelle bwtn 4step and beam+ block(dock/boat gap) Comments lateral stepping R into boat ( 4 step>floor), 6 gap step up /over and slight descend. Good response, cued slow stepping control not need UE support but has on boat to use . PT-OP-T Assessment and Plan Start: 05/31/23 11:25 Freq: Status: Active Protocol: Document 07/19/23 13:01 SP (Rec: 07/19/23 13:53 SP [id number]) Physical Therapy Assessment Goals 4 Impairment Maura scores a 24 on the LE functional scale which places her at 60-79 percent impaired Electrocardiograph Repairer Goal (LTG) Maura score on the LE functional scale is improved by 10 points or greater to reduce functional impairment LTG Duration 8 weeks 3 Impairment Decreased hip strength following L RONNY Short Term Goal (STG) Maura is educated on a HEP for improved hip strength 06/28/23: side hip abd, SLR, LAQ, standing hip abd TB #1. 07/12/23: Added stand: TB april, abd. STG Duration 4 weeks progressing 07/12/23 Electrocardiograph Repairer Goal (LTG) Maura is independent with a HEP and demonstrates improvement with hip strength LTG Duration 8 weeks 2 Impairment Decreased hip ROM s/p L RONNY and pt has precautions of no hip extension or hip ER Short Term Goal (STG) Maura is educated on a home program to improve hip ROM 06/28/23: Progressing: Independent AROM, progressing with resistance hip abd, LAQ. STG Duration 5 weeks progressing 06/28/23 [facility] Goal (LTG) Maura presents with improved hip ROM into hip flexion and abduction 06/28/23: pt able to perform SLR and side hip abd on L AROM tires at 8 reps, TKE cues needed for last 2 reps. Not measured. LTG Duration 8 weeks progressing 06/28/23 1 Impairment left sided hip pain s/p RONNY that ranges from 2 at rest to 7/10 with positional changes Electrocardiograph Repairer Goal (LTG) Maura reports a overall reduction in pain of the left hip pt notes her symptoms are now a 3-4/10 and mainly when she first gets up. Once she is up and moving around its more of a 2 LTG Duration 8 weeks Assessment Summary Assessment Tx condensed HEP for more strengthening focus and incorporated SL progression with sliders, cues for proper form, reports painfree with improved stability to allow increased confidence toward return to larget step mgt onto uneven surface getting on her boat. Physical Therapy Plan Frequency and Duration Frequency of Treatment 2x/Week Duration of treatment (weeks) 8 Plan of Care Start Date 06/30/23 Plan of Care End Date 08/25/23 Therapeutic Interventions Therapeutic Interventions Home Exercise Program,Manual Therapy,Self-Care/Home Management,Soft Tissue Mobilization,Therapeutic Exercises Modalities Cold Pack/Ice Massage Next Visit Focus/Plan Next Note Type Treatment Note Next Visit Plan Next warm up TM merced, angela for assimulation stability return to boat dock/ramp. PT POC: continue working on functional activities to take a step into her boat including balance activites and walking up/down boat ramp
--- NOTE | 2023-07-26 12:49 | PT.OTN ---
Current Diagnoses Pain in left hip (07/26/23) Stiffness of unspecified hip, not elsewhere classified (07/26/23) Muscle weakness (generalized) (07/26/23) Presence of left artificial hip joint (07/26/23) Physical Therapy Treatment Note PT-OP-A Visit Information Start: 05/31/23 11:25 Freq: Status: Active Protocol: Document 07/26/23 10:44 NBM (Rec: 07/26/23 11:25 NBM [id number]) Out-Patient Physical Therapy Visit Information Visit Information Visit Type Treatment Note Visit Note 15 more visits approved (2nd set), today is 15 used. Visit Start Time 10:36 Visit Stop Time 11:25 Visit Number 15 Number of PUBLIC HEALTH INFORMATICIAN Visits 2 Evaluation Information Evaluation Date 05/31/23 Precautions Precautions 07/25/23: s/p Anterior L hip, precautions PT-OP-B Current Condition Start: 05/31/23 11:25 Freq: Status: Active Protocol: Document 05/31/23 13:05 AMH (Rec: 05/31/23 13:48 AMH [id number]) Current Condition History of Current Condition Onset Date 05/25/23 Current Complaints s/p left RONNY, decreased hip ROM, pain, decreased strength History of Current Condition May 24 anterior approach total hip replacement pt is using a fww with sitting down or standing up she can feel incisional pain that feels burning but after a minute after changing positions she wont feel it as strong. She rates it as a 6/ 10 zing with positional change Walking is a 3-4/10 but if she tries to take too big of a step she jay get pain She has been wearing thigh highs and has had mild swelling only she is using a fww and its primarily to not over do. She has 3 stairs to get in at her house with a railing and has been doing fine with these. She is 6 days s/p hip surgery today Treatment Goals Patient/Caregiver Goals Pt's goals are to improve hip ROM, decrease pain, increase strength and walking distance PT-OP-C Subjective Start: 05/31/23 11:25 Freq: Status: Active Protocol: Document 07/26/23 10:44 NBM (Rec: 07/26/23 11:25 NBM [id number]) OP-PT Subjective Patient Comments Patient Comments Maura reports she's able to squat now just since the last two weeks and is comfortable getting into cross-legged position on floor now. PT-OP-F Manual Assessment Start: 05/31/23 11:25 Freq: Status: Active Protocol: Document 05/31/23 13:00 AMH (Rec: 06/01/23 13:05 [facility] [id number]) Manual Assessments Soft Tissue Assessment Soft Tissue Mobility Assessment myofascial tightness of the left quad and anterior hip, pt still has her bandage on for 2 weeks so fascial tissue will need further assessment once bandage is removed PT-OP-G Mobility & Gait Start: 05/31/23 11:25 Freq: Status: Active Protocol: Document 05/31/23 13:00 [facility] (Rec: 06/01/23 13:05 [facility] [id number]) OP Mobility Evaluation Bed Mobility Rolling ind Supine to and from Sit ind Transfers Sit to Stand IND and uses FWW Bed to Chair Transfers IND Car Transfers IND Floor Transfers not attempted OP Gait Assessment Gait Gait Assistance Required: Standby Assistance Distance (Feet) 50 Able to Maintain Weight Bearing Status Yes During Gait Assistive Devices Assistive Device Front Wheeled Walker Gait Deviations General Gait Pattern Decreased Stride Length,Step- to Gait Factors Limiting Gait Function Factors Limiting Gait Function Decreased Activity Tolerance, Decreased Strength,Limited Range of Motion,Pain PT-OP-K Range of Motion Start: 05/31/23 11:25 Freq: Status: Active Protocol: Document 05/31/23 13:00 [facility] (Rec: 06/01/23 13:05 [facility] [id number]) Hip Goniometric Range of Motion Hip Left Hip ROM WFL No Testing Position Supine Flexion w/Knee Flexed 90 Abduction 5 Comments pt has anterior hip precautions of no hip extension or ER. She has pain with hip abduction and knee flexion greater than 90 degrees. It is difficult for her to extend her hip flat onto the table and she needs a towel roll under her left knee especially at first Right Hip ROM WFL Yes Testing Position Supine Hip ROM Limitations Hip ROM Limitations Soft Tissue Tightness,Pain, Swelling Comments ANTERIOR HIP PRECAUTIONS PT-OP-M Strength Start: 05/31/23 11:25 Freq: Status: Active Protocol: Document 05/31/23 13:00 AMH (Rec: 06/01/23 13:05 [facility] [id number]) Hip Strength Hip Manual Muscle Testing Left Comments not formaly tested due to s/p RONNY 6 days ago but decreased AROM of the left hip PT-OP-Q Treatments Start: 05/31/23 11:25 Freq: Status: Active Protocol: Document 07/26/23 10:44 [facility] (Rec: 07/26/23 11:25 [facility] [id number]) Cardio Equipment Bicycle (Upright) Duration (Minutes) 6 Resistance 7 Seat Position 3 Other 60 RPMs Therapeutic Exercises Supine Exercises bridge Supine Exercise Name segmental bridge Side bilateral Reps/Minutes x10, 30s hold w/ breath focus Comments cues for increased WB LLE w/ hold SLR Supine Exercise Name HEP review Side bilateral Reps/Minutes x10 ea Comments cues for knee ext w/ eccentric motion, slower pacing, breathwork Prone Exercises plank Equipment Used forearm/feet Reps/Minutes 2x10s Comments cues for dropping hips to level Sidelying Exercises clamshel Sidelying Exercise Name HEP review 1. Clamshell 2. Reverse clamshell Side bilateral Reps/Minutes x10 ea Comments tactile cues for excessive pelvic rot, eccentric control Sitting Exercises stretching Sitting Exercise Name added: hip IR and ER Side left Reps/Minutes 20 SH x2 each Comments TA cues, improved LE lift, need supportive due to weakness anderson tap Sitting Exercise Name HEP review Side left Reps/Minutes x10 reps Comments L foot up R anderson- hip flex/ER strengthening Standing Exercises lunges Standing Exercise Name add next tx - pt declines d/t concern of hip extension w/ protocol SLS star glides Standing Exercise Name HEP review Side left Resistance AROM Equipment Used slider under R foot, counter as needed for support Comments cued increased knee bend standing single leg stance Standing Exercise Name pt places foot on lower leg Side bilateral Reps/Minutes trials (10-15s ea) Comments pt to practice balance at home to prepare for stepping onto the boat PT-OP-T Assessment and Plan Start: 05/31/23 11:25 Freq: Status: Active Protocol: Document 07/26/23 10:44 [facility] (Rec: 07/26/23 11:25 [facility] [id number]) Physical Therapy Assessment Goals 4 Impairment Maura scores a 24 on the LE functional scale which places her at 60-79 percent impaired Secy Goal (LTG) Maura score on the LE functional scale is improved by 10 points or greater to reduce functional impairment LTG Duration 8 weeks 3 Impairment Decreased hip strength following L RONNY Short Term Goal (STG) Maura is educated on a HEP for improved hip strength 06/28/23: side hip abd, SLR, LAQ, standing hip abd TB #1. 07/12/23: Added stand: TB march, abd. STG Duration 4 weeks progressing 07/12/23 Secy Goal (LTG) Maura is independent with a HEP and demonstrates improvement with hip strength LTG Duration 8 weeks 2 Impairment Decreased hip ROM s/p L RONNY and pt has precautions of no hip extension or hip ER Short Term Goal (STG) Maura is educated on a home program to improve hip ROM 06/28/23: Progressing: Independent AROM, progressing with resistance hip abd, LAQ. STG Duration 5 weeks progressing 06/28/23 Secy Goal (LTG) Maura presents with improved hip ROM into hip flexion and abduction 06/28/23: pt able to perform SLR and side hip abd on L AROM tires at 8 reps, TKE cues needed for last 2 reps. Not measured. LTG Duration 8 weeks progressing 06/28/23 1 Impairment left sided hip pain s/p RONNY that ranges from 2 at rest to 7/10 with positional changes Prison Goal (LTG) Maura reports a overall reduction in pain of the left hip pt notes her symptoms are now a 3-4/10 and mainly when she first gets up. Once she is up and moving around its more of a 2 LTG Duration 8 weeks Assessment Summary Assessment Maura requires cues w/ SLR for maintaining L knee ext w/ eccentric motion, and slower pacing and breathwork throughout. She demonstrates improved self-awareness throughout session. She continues to be challenged w/ excessive pelvic rotation w/ clamshell and for eccentric control w/ breath. She requires cues in forearm plank for neutral pelvis due to excessive hip flexion. She declines to perform lunges today d/t concern w/ hip extension protocol but demos stationary lunge w/ L hip in neutral position. She is challenged w/ SL balance and unable to maintain >15s bilaterally with use of foot placed on lower leg. She is cued to increase L knee flexion with SLS star glides. Physical Therapy Plan Frequency and Duration Frequency of Treatment 2x/Week Duration of treatment (weeks) 8 Plan of Care Start Date 06/30/23 Plan of Care End Date 08/25/23 Therapeutic Interventions Therapeutic Interventions Home Exercise Program,Manual Therapy,Self-Care/Home Management,Soft Tissue Mobilization,Therapeutic Exercises Modalities Cold Pack/Ice Massage Next Visit Focus/Plan Next Note Type Treatment Note Next Visit Plan Next warm up TM fwd, kaek for assimulation stability return to boat dock/ramp. PT POC: continue working on functional activities to take a step into her boat including balance activites and walking up/down boat ramp
--- NOTE | 2023-07-31 07:10 | PT.OTN ---
Current Diagnoses Pain in left hip (07/28/23) Stiffness of unspecified hip, not elsewhere classified (07/28/23) Muscle weakness (generalized) (07/28/23) Presence of left artificial hip joint (07/28/23) Physical Therapy Treatment Note PT-OP-A Visit Information Start: 05/31/23 11:25 Freq: Status: Active Protocol: Document 07/28/23 13:03 [facility] (Rec: 07/28/23 13:47 [facility] [id number]) Out-Patient Physical Therapy Visit Information Visit Information Visit Type Treatment Note Visit Start Time 13:03 Visit Stop Time 13:45 Visit Number 16 Number of POT PUNCHER Visits 0 PT-OP-B Current Condition Start: 05/31/23 11:25 Freq: Status: Active Protocol: Document 05/31/23 13:05 [facility] (Rec: 05/31/23 13:48 [facility] [id number]) Current Condition History of Current Condition Onset Date 05/25/23 Current Complaints s/p left RONNY, decreased hip ROM, pain, decreased strength History of Current Condition May 24 anterior approach total hip replacement pt is using a fww with sitting down or standing up she can feel incisional pain that feels burning but after a minute after changing positions she wont feel it as strong. She rates it as a 6/ 10 zing with positional change Walking is a 3-4/10 but if she tries to take too big of a step she jay get pain She has been wearing thigh highs and has had mild swelling only she is using a fww and its primarily to not over do. She has 3 stairs to get in at her house with a railing and has been doing fine with these. She is 6 days s/p hip surgery today Treatment Goals Patient/Caregiver Goals Pt's goals are to improve hip ROM, decrease pain, increase strength and walking distance PT-OP-C Subjective Start: 05/31/23 11:25 Freq: Status: Active Protocol: Document 07/28/23 13:03 [facility] (Rec: 07/28/23 13:47 [facility] [id number]) OP-PT Subjective Patient Comments Patient Comments pt reports doing her exercises and riding the bike has really helped as she tends to get stiff with just walking but it is feeling better, she is now working on inclines. She is able to sit cross legged if she is sitting on a bolster. She really wants to work on posture as she feels she is walking with a forward posture PT-OP-F Manual Assessment Start: 05/31/23 11:25 Freq: Status: Active Protocol: Document 05/31/23 13:00 [facility] (Rec: 06/01/23 13:05 [facility] [id number]) Manual Assessments Soft Tissue Assessment Soft Tissue Mobility Assessment myofascial tightness of the left quad and anterior hip, pt still has her bandage on for 2 weeks so fascial tissue will need further assessment once bandage is removed PT-OP-G Mobility & Gait Start: 05/31/23 11:25 Freq: Status: Active Protocol: Document 05/31/23 13:00 [facility] (Rec: 06/01/23 13:05 [facility] [id number]) OP Mobility Evaluation Bed Mobility Rolling ind Supine to and from Sit ind Transfers Sit to Stand IND and uses FWW Bed to Chair Transfers IND Car Transfers IND Floor Transfers not attempted OP Gait Assessment Gait Gait Assistance Required: Standby Assistance Distance (Feet) 50 Able to Maintain Weight Bearing Status Yes During Gait Assistive Devices Assistive Device Front Wheeled Walker Gait Deviations General Gait Pattern Decreased Stride Length,Step- to Gait Factors Limiting Gait Function Factors Limiting Gait Function Decreased Activity Tolerance, Decreased Strength,Limited Range of Motion,Pain PT-OP-K Range of Motion Start: 05/31/23 11:25 Freq: Status: Active Protocol: Document 05/31/23 13:00 [facility] (Rec: 06/01/23 13:05 [facility] [id number]) Hip Goniometric Range of Motion Hip Left Hip ROM WFL No Testing Position Supine Flexion w/Knee Flexed 90 Abduction 5 Comments pt has anterior hip precautions of no hip extension or ER. She has pain with hip abduction and knee flexion greater than 90 degrees. It is difficult for her to extend her hip flat onto the table and she needs a towel roll under her left knee especially at first Right Hip ROM WFL Yes Testing Position Supine Hip ROM Limitations Hip ROM Limitations Soft Tissue Tightness,Pain, Swelling Comments ANTERIOR HIP PRECAUTIONS PT-OP-M Strength Start: 05/31/23 11:25 Freq: Status: Active Protocol: Document 05/31/23 13:00 [facility] (Rec: 06/01/23 13:05 [facility] [id number]) Hip Strength Hip Manual Muscle Testing Left Comments not formaly tested due to s/p RONNY 6 days ago but decreased AROM of the left hip PT-OP-Q Treatments Start: 05/31/23 11:25 Freq: Status: Active Protocol: Document 07/28/23 13:03 [facility] (Rec: 07/28/23 13:47 [facility] [id number]) Therapeutic Exercises Supine Exercises horizontal foam roll stretch Reps/Minutes 1 min Standing Exercises standing B shoulder ER Equipment Used level 2 TB Reps/Minutes 2 x 10 reps standing rows Equipment Used level 2 TB Reps/Minutes 2 x 10 standing shoulder horizontal abduction Equipment Used level 2 TB Reps/Minutes 2 x 10 reps standing wall slides Reps/Minutes x 10 Comments cues to keep low back and head against wall lateral step ups Equipment Used 4 step Reps/Minutes x 10 standing foam roll roll up the wall Reps/Minutes 10 repos step ups Standing Exercise Name verbal review HEP Side right Equipment Used 8-11 step Comments cued heel drive, glut firing wt shift over stance LE PT-OP-T Assessment and Plan Start: 05/31/23 11:25 Freq: Status: Active Protocol: Document 07/28/23 13:00 [facility] (Rec: 07/31/23 07:09 [facility] [id number]) Physical Therapy Assessment Assessment Summary Assessment Maura is making really good progress and is walking with improved WB through her left LE. She is concerned about posture with walking today as she feels she is still walking forward so I worked with her on adding in postural exercises into her program. We worked on using the wall for exercises as well as adding in theraband. She demonstrated good form with step ups today. Physical Therapy Plan Frequency and Duration Frequency of Treatment 2x/Week Duration of treatment (weeks) 8 Plan of Care Start Date 06/30/23 Plan of Care End Date 08/25/23 Therapeutic Interventions Therapeutic Interventions Home Exercise Program,Manual Therapy,Self-Care/Home Management,Soft Tissue Mobilization,Therapeutic Exercises Modalities Cold Pack/Ice Massage Next Visit Focus/Plan Next Note Type Treatment Note Next Visit Plan Warm up on TM fwd. Review new postural exercise given . Work on balance reactions on shuttle balance
--- NOTE | 2023-08-04 16:47 | PT.OTN ---
Current Diagnoses Pain in left hip (08/04/23) Stiffness of unspecified hip, not elsewhere classified (08/04/23) Muscle weakness (generalized) (08/04/23) Presence of left artificial hip joint (08/04/23) Physical Therapy Treatment Note PT-OP-A Visit Information Start: 05/31/23 11:25 Freq: Status: Active Protocol: Document 08/04/23 13:03 [facility] (Rec: 08/04/23 13:52 [facility] [id number]) Out-Patient Physical Therapy Visit Information Visit Information Visit Type Treatment Note Visit Start Time 13:01 Visit Stop Time 13:41 Visit Number 17 Number of BLASTING CONTRACT MINER Visits 0 Precautions Precautions 05/25/23: s/p Anterior L hip, precautions PT-OP-B Current Condition Start: 05/31/23 11:25 Freq: Status: Active Protocol: Document 05/31/23 13:05 [facility] (Rec: 05/31/23 13:48 [facility] [id number]) Current Condition History of Current Condition Onset Date 05/25/23 Current Complaints s/p left RONNY, decreased hip ROM, pain, decreased strength History of Current Condition May 24 anterior approach total hip replacement pt is using a fww with sitting down or standing up she can feel incisional pain that feels burning but after a minute after changing positions she wont feel it as strong. She rates it as a 6/ 10 zing with positional change Walking is a 3-4/10 but if she tries to take too big of a step she jay get pain She has been wearing thigh highs and has had mild swelling only she is using a fww and its primarily to not over do. She has 3 stairs to get in at her house with a railing and has been doing fine with these. She is 6 days s/p hip surgery today Treatment Goals Patient/Caregiver Goals Pt's goals are to improve hip ROM, decrease pain, increase strength and walking distance PT-OP-C Subjective Start: 05/31/23 11:25 Freq: Status: Active Protocol: Document 08/04/23 13:03 [facility] (Rec: 08/04/23 13:52 [facility] [id number]) OP-PT Subjective Patient Comments Patient Comments Pt report currently has covid, mask donned, tested negative. Pt reports going on bike at home, helps to loosen up TFL and for ROM. Pt reports still massaging scar for adhesions. PT-OP-F Manual Assessment Start: 05/31/23 11:25 Freq: Status: Active Protocol: Document 05/31/23 13:00 [facility] (Rec: 06/01/23 13:05 [facility] [id number]) Manual Assessments Soft Tissue Assessment Soft Tissue Mobility Assessment myofascial tightness of the left quad and anterior hip, pt still has her bandage on for 2 weeks so fascial tissue will need further assessment once bandage is removed PT-OP-G Mobility & Gait Start: 05/31/23 11:25 Freq: Status: Active Protocol: Document 05/31/23 13:00 [facility] (Rec: 06/01/23 13:05 [facility] [id number]) OP Mobility Evaluation Bed Mobility Rolling ind Supine to and from Sit ind Transfers Sit to Stand IND and uses FWW Bed to Chair Transfers IND Car Transfers IND Floor Transfers not attempted OP Gait Assessment Gait Gait Assistance Required: Standby Assistance Distance (Feet) 50 Able to Maintain Weight Bearing Status Yes During Gait Assistive Devices Assistive Device Front Wheeled Walker Gait Deviations General Gait Pattern Decreased Stride Length,Step- to Gait Factors Limiting Gait Function Factors Limiting Gait Function Decreased Activity Tolerance, Decreased Strength,Limited Range of Motion,Pain PT-OP-K Range of Motion Start: 05/31/23 11:25 Freq: Status: Active Protocol: Document 05/31/23 13:00 [facility] (Rec: 06/01/23 13:05 [facility] [id number]) Hip Goniometric Range of Motion Hip Left Hip ROM WFL No Testing Position Supine Flexion w/Knee Flexed 90 Abduction 5 Comments pt has anterior hip precautions of no hip extension or ER. She has pain with hip abduction and knee flexion greater than 90 degrees. It is difficult for her to extend her hip flat onto the table and she needs a towel roll under her left knee especially at first Right Hip ROM WFL Yes Testing Position Supine Hip ROM Limitations Hip ROM Limitations Soft Tissue Tightness,Pain, Swelling Comments ANTERIOR HIP PRECAUTIONS PT-OP-M Strength Start: 05/31/23 11:25 Freq: Status: Active Protocol: Document 05/31/23 13:00 [facility] (Rec: 06/01/23 13:05 [facility] [id number]) Hip Strength Hip Manual Muscle Testing Left Comments not formaly tested due to s/p RONNY 6 days ago but decreased AROM of the left hip PT-OP-Q Treatments Start: 05/31/23 11:25 Freq: Status: Active Protocol: Document 08/04/23 13:03 (Rec: 08/04/23 13:52 [id number]) Cardio Equipment Bicycle (Upright) Duration (Minutes) 6 Resistance 7 Seat Position 3 Other 55-60 RPMs Gym Equipment Shuttle Balance red Details f/b/lateral: WBOS, NBOS Comments EO/EC wt shifting HTs Therapeutic Exercises Supine Exercises horizontal foam roll stretch Reps/Minutes 1 min Standing Exercises standing B shoulder ER Equipment Used level 2 TB Reps/Minutes 2 x 10 reps standing rows Equipment Used level 2 TB Reps/Minutes 2 x 10 standing shoulder horizontal abduction Equipment Used level 2 TB Reps/Minutes 2 x 10 reps standing wall slides Reps/Minutes x 10 Comments cues to keep low back and head against wall standing foam roll roll up the wall Reps/Minutes 10 repos Comments cues for core stabilization PT-OP-T Assessment and Plan Start: 05/31/23 11:25 Freq: Status: Active Protocol: Document 08/04/23 13:03 (Rec: 08/04/23 13:52 [id number]) Physical Therapy Assessment Goals 4 Impairment Maura scores a 24 on the LE functional scale which places her at 60-79 percent impaired Usp Goal (LTG) Maura score on the LE functional scale is improved by 10 points or greater to reduce functional impairment LTG Duration 8 weeks 3 Impairment Decreased hip strength following L RONNY Short Term Goal (STG) Maura is educated on a HEP for improved hip strength 06/28/23: side hip abd, SLR, LAQ, standing hip abd TB #1. 07/12/23: Added stand: TB april, abd. STG Duration 4 weeks progressing 07/12/23 Lcsw Goal (LTG) Maura is independent with a HEP and demonstrates improvement with hip strength LTG Duration 8 weeks 2 Impairment Decreased hip ROM s/p L RONNY and pt has precautions of no hip extension or hip ER Short Term Goal (STG) Maura is educated on a home program to improve hip ROM 06/28/23: Progressing: Independent AROM, progressing with resistance hip abd, LAQ. STG Duration 5 weeks progressing 06/28/23 Lcsw Goal (LTG) Maura presents with improved hip ROM into hip flexion and abduction 06/28/23: pt able to perform SLR and side hip abd on L AROM tires at 8 reps, TKE cues needed for last 2 reps. Not measured. LTG Duration 8 weeks progressing 06/28/23 1 Impairment left sided hip pain s/p RONNY that ranges from 2 at rest to 7/10 with positional changes Usp Goal (LTG) Maura reports a overall reduction in pain of the left hip pt notes her symptoms are now a 3-4/10 and mainly when she first gets up. Once she is up and moving around its more of a 2 LTG Duration 8 weeks Assessment Summary Assessment Reviewed pt postural exercises iniated last session, pt required mod verbal cues for form, especial cervical spine alignment. Extended time on therex for pt education. Initiated shuttle balance this session for recationary responses, pt challenged lateral>AP, pt bending at knees to lower COG, instructed pt to extend knees maintaining only slight bend, pt reports more of a challenge , ankle/hip strategies engaged , plan to progress blance challenges on shuttle balance next session as able. Physical Therapy Plan Frequency and Duration Frequency of Treatment 2x/Week Duration of treatment (weeks) 8 Plan of Care Start Date 06/30/23 Plan of Care End Date 08/25/23 Therapeutic Interventions Therapeutic Interventions Home Exercise Program,Manual Therapy,Self-Care/Home Management,Soft Tissue Mobilization,Therapeutic Exercises Modalities Cold Pack/Ice Massage Next Visit Focus/Plan Next Note Type Treatment Note Next Visit Plan Warm up on TM fwd. Review new postural exercise given . Work on balance reactions on shuttle balance
--- NOTE | 2023-08-09 17:04 | PT.OTN ---
Current Diagnoses Pain in left hip (08/09/23) Stiffness of unspecified hip, not elsewhere classified (08/09/23) Muscle weakness (generalized) (08/09/23) Presence of left artificial hip joint (08/09/23) Physical Therapy Treatment Note PT-OP-A Visit Information Start: 05/31/23 11:25 Freq: Status: Active Protocol: Document 08/09/23 16:57 [facility] (Rec: 08/09/23 17:00 [facility] [id number]) Out-Patient Physical Therapy Visit Information Visit Information Visit Type Progress Note Visit Start Time 11:15 Visit Stop Time 12:00 Visit Number 18 PT-OP-B Current Condition Start: 05/31/23 11:25 Freq: Status: Active Protocol: Document 05/31/23 13:05 [facility] (Rec: 05/31/23 13:48 [facility] [id number]) Current Condition History of Current Condition Onset Date 05/25/23 Current Complaints s/p left RONNY, decreased hip ROM, pain, decreased strength History of Current Condition May 24 anterior approach total hip replacement pt is using a fww with sitting down or standing up she can feel incisional pain that feels burning but after a minute after changing positions she wont feel it as strong. She rates it as a 6/ 10 zing with positional change Walking is a 3-4/10 but if she tries to take too big of a step she jay get pain She has been wearing thigh highs and has had mild swelling only she is using a fww and its primarily to not over do. She has 3 stairs to get in at her house with a railing and has been doing fine with these. She is 6 days s/p hip surgery today Treatment Goals Patient/Caregiver Goals Pt's goals are to improve hip ROM, decrease pain, increase strength and walking distance PT-OP-C Subjective Start: 05/31/23 11:25 Freq: Status: Active Protocol: Document 08/09/23 11:16 [facility] (Rec: 08/09/23 12:02 [facility] [id number]) OP-PT Subjective Patient Comments Patient Comments Maura has been working hard on her postural exercises and she has been walking further and she is up to 3/4 of a mile PT-OP-F Manual Assessment Start: 05/31/23 11:25 Freq: Status: Active Protocol: Document 05/31/23 13:00 [facility] (Rec: 06/01/23 13:05 [facility] [id number]) Manual Assessments Soft Tissue Assessment Soft Tissue Mobility Assessment myofascial tightness of the left quad and anterior hip, pt still has her bandage on for 2 weeks so fascial tissue will need further assessment once bandage is removed PT-OP-G Mobility & Gait Start: 05/31/23 11:25 Freq: Status: Active Protocol: Document 05/31/23 13:00 [facility] (Rec: 06/01/23 13:05 [facility] [id number]) OP Mobility Evaluation Bed Mobility Rolling ind Supine to and from Sit ind Transfers Sit to Stand IND and uses FWW Bed to Chair Transfers IND Car Transfers IND Floor Transfers not attempted OP Gait Assessment Gait Gait Assistance Required: Standby Assistance Distance (Feet) 50 Able to Maintain Weight Bearing Status Yes During Gait Assistive Devices Assistive Device Front Wheeled Walker Gait Deviations General Gait Pattern Decreased Stride Length,Step- to Gait Factors Limiting Gait Function Factors Limiting Gait Function Decreased Activity Tolerance, Decreased Strength,Limited Range of Motion,Pain PT-OP-K Range of Motion Start: 05/31/23 11:25 Freq: Status: Active Protocol: Document 05/31/23 13:00 [facility] (Rec: 06/01/23 13:05 [facility] [id number]) Hip Goniometric Range of Motion Hip Left Hip ROM WFL No Testing Position Supine Flexion w/Knee Flexed 90 Abduction 5 Comments pt has anterior hip precautions of no hip extension or ER. She has pain with hip abduction and knee flexion greater than 90 degrees. It is difficult for her to extend her hip flat onto the table and she needs a towel roll under her left knee especially at first Right Hip ROM WFL Yes Testing Position Supine Hip ROM Limitations Hip ROM Limitations Soft Tissue Tightness,Pain, Swelling Comments ANTERIOR HIP PRECAUTIONS PT-OP-M Strength Start: 05/31/23 11:25 Freq: Status: Active Protocol: Document 05/31/23 13:00 [facility] (Rec: 06/01/23 13:05 [facility] [id number]) Hip Strength Hip Manual Muscle Testing Left Comments not formaly tested due to s/p RONNY 6 days ago but decreased AROM of the left hip PT-OP-Q Treatments Start: 05/31/23 11:25 Freq: Status: Active Protocol: Document 08/09/23 11:16 [facility] (Rec: 08/09/23 12:02 [facility] [id number]) Therapeutic Exercises Standing Exercises standing adducotor stretdh Reps/Minutes x 3-4 reps standing at counter top with left leg straight and R knee bent Comments hold 20-30 seconds PT-OP-T Assessment and Plan Start: 05/31/23 11:25 Freq: Status: Active Protocol: Document 08/09/23 16:57 [facility] (Rec: 08/09/23 17:00 [facility] [id number]) Physical Therapy Assessment Goals 4 Impairment Maura scores a 24 on the LE functional scale which places her at 60-79 percent impaired Artist'S Manager Goal (LTG) Maura score on the LE functional scale is improved by 10 points or greater to reduce functional impairment excellent progress LTG Duration 8 weeks 3 Impairment Decreased hip strength following L RONNY Short Term Goal (STG) Maura is educated on a HEP for improved hip strength 06/28/23: side hip abd, SLR, LAQ, standing hip abd TB #1. 07/12/23: Added stand: TB april, abd. STG Duration 4 weeks progressing 07/12/23 Artist'S Manager Goal (LTG) Maura is independent with a HEP and demonstrates improvement with hip strength excellent progress LTG Duration 8 weeks 2 Impairment Decreased hip ROM s/p L RONNY and pt has precautions of no hip extension or hip ER Short Term Goal (STG) Maura is educated on a home program to improve hip ROM 06/28/23: Progressing: Independent AROM, progressing with resistance hip abd, LAQ. STG Duration 5 weeks progressing 06/28/23 Artist'S Manager Goal (LTG) Muara presents with improved hip ROM into hip flexion and abduction 06/28/23: pt able to perform SLR and side hip abd on L AROM tires at 8 reps, TKE cues needed for last 2 reps. Not measured. LTG Duration 8 weeks progressing 06/28/23 1 Impairment left sided hip pain s/p RONNY that ranges from 2 at rest to 7/10 with positional changes Detention Goal (LTG) Maura reports a overall reduction in pain of the left hip pt notes her symptoms are now a 3-4/10 and mainly when she first gets up. Once she is up and moving around its more of a 2 LTG Duration 8 weeks Progress Towards Goals Progress Towards Goals Progressing Toward Goals Assessment Summary Assessment Maura is doing really well progressing towards her goals and has been able to increase walking to 3/4 mile. She is noting no pain now and primarily just tightness. I worked on fascial release today over the left adductors and ITB as Maura was feeling increased tightness. I also added in a standing adductor stretch using the table as support keeping left leg straight and right knee bent to gently stretch the left adductors. Maura tolerated this well. Physical Therapy Plan Frequency and Duration Frequency of Treatment 2x/Week Duration of treatment (weeks) 4 Plan of Care Start Date 08/09/23 Plan of Care End Date 09/06/23 Therapeutic Interventions Therapeutic Interventions Home Exercise Program,Manual Therapy,Self-Care/Home Management,Soft Tissue Mobilization,Therapeutic Exercises Modalities Cold Pack/Ice Massage Next Visit Focus/Plan Next Note Type Treatment Note Next Visit Plan Warm up on treadmill next visit, review postural exercses and check in with standing hip flexion and lateral step ups/overs
--- NOTE | 2023-08-09 17:04 | PT.OPPOC ---
Physical, Occupational & Speech Therapy At [facility] Current Diagnoses Pain in left hip (08/09/23) Stiffness of unspecified hip, not elsewhere classified (08/09/23) Muscle weakness (generalized) (08/09/23) Presence of left artificial hip joint (08/09/23) Visit Care Team Role Provider Type MARI Barrera Family Provider Advanced Grazing Aide Primary Care Provider Specialty: Family Practice Address: [address] [place] [address], [id number] Email: [email or web address] Montrell Waite MD Attending Provider Non-Staff Referring Provider Specialty: Orthopedic Surgery Address: [address] [place] [address] , [place], [address] Email: Plan Of Care PT-OP-T Assessment and Plan Start: 05/31/23 11:25 Freq: Status: Active Protocol: Document 08/09/23 16:57 [facility] (Rec: 08/09/23 17:00 [facility] [id number]) Physical Therapy Assessment Goals 4 Impairment Maura scores a 24 on the LE functional scale which places her at 60-79 percent impaired Leasing Sales Consultant Goal (LTG) Maura score on the LE functional scale is improved by 10 points or greater to reduce functional impairment excellent progress LTG Duration 8 weeks 3 Impairment Decreased hip strength following L RONNY Short Term Goal (STG) Maura is educated on a HEP for improved hip strength 06/28/23: side hip abd, SLR, LAQ, standing hip abd TB #1. 07/12/23: Added stand: TB april, abd. STG Duration 4 weeks progressing 07/12/23 Leasing Sales Consultant Goal (LTG) Maura is independent with a HEP and demonstrates improvement with hip strength excellent progress LTG Duration 8 weeks 2 Impairment Decreased hip ROM s/p L RONNY and pt has precautions of no hip extension or hip ER Short Term Goal (STG) Maura is educated on a home program to improve hip ROM 06/28/23: Progressing: Independent AROM, progressing with resistance hip abd, LAQ. STG Duration 5 weeks progressing 06/28/23 Care Home Goal (LTG) Maura presents with improved hip ROM into hip flexion and abduction 06/28/23: pt able to perform SLR and side hip abd on L AROM tires at 8 reps, TKE cues needed for last 2 reps. Not measured. LTG Duration 8 weeks progressing 06/28/23 1 Impairment left sided hip pain s/p RONNY that ranges from 2 at rest to 7/10 with positional changes Leasing Sales Consultant Goal (LTG) Maura reports a overall reduction in pain of the left hip pt notes her symptoms are now a 3-4/10 and mainly when she first gets up. Once she is up and moving around its more of a 2 LTG Duration 8 weeks Progress Towards Goals Progress Towards Goals Progressing Toward Goals Assessment Summary Assessment Maura is doing really well progressing towards her goals and has been able to increase walking to 3/4 mile. She is noting no pain now and primarily just tightness. I worked on fascial release today over the left adductors and ITB as Maura was feeling increased tightness. I also added in a standing adductor stretch using the table as support keeping left leg straight and right knee bent to gently stretch the left adductors. Maura tolerated this well. Physical Therapy Plan Frequency and Duration Frequency of Treatment 2x/Week Duration of treatment (weeks) 4 Plan of Care Start Date 08/09/23 Plan of Care End Date 09/06/23 Therapeutic Interventions Therapeutic Interventions Home Exercise Program,Manual Therapy,Self-Care/Home Management,Soft Tissue Mobilization,Therapeutic Exercises Modalities Cold Pack/Ice Massage Next Visit Focus/Plan Next Note Type Treatment Note Next Visit Plan Warm up on treadmill next visit, review postural exercises and check in with standing hip flexion and lateral step ups/overs Plan of Care Dates Plan of Care Start Date 08/09/23 Plan of Care End Date 09/06/23 Electronically Signed by: Norah Yu, PT 08/09/23 1392 If you are in agreement with this Plan of Care, please return a signed and dated copy. I have reviewed this Plan of Care and certify that the skilled therapy services above are required to meet the patient?s needs. Physician Signature Date Printed Name and Credentials Clinical Instructor Signature Printed Name and Credentials
--- NOTE | 2023-08-17 18:23 | PT.OTN ---
Current Diagnoses Pain in left hip (08/17/23) Stiffness of unspecified hip, not elsewhere classified (08/17/23) Muscle weakness (generalized) (08/17/23) Presence of left artificial hip joint (08/17/23) Physical Therapy Treatment Note PT-OP-A Visit Information Start: 05/31/23 11:25 Freq: Status: Active Protocol: Document 08/17/23 13:06 [facility]BM (Rec: 08/17/23 13:54 NBM [id number]) Out-Patient Physical Therapy Visit Information Visit Information Visit Type Treatment Note Visit Start Time 13:07 Visit Stop Time 14:05 Visit Number 19 Number of BLOCK SETTER GYPSUM Visits 1 PT-OP-B Current Condition Start: 05/31/23 11:25 Freq: Status: Active Protocol: Document 05/31/23 13:05 [facility] (Rec: 05/31/23 13:48 [facility] [id number]) Current Condition History of Current Condition Onset Date 05/25/23 Current Complaints s/p left RONNY, decreased hip ROM, pain, decreased strength History of Current Condition May 24 anterior approach total hip replacement pt is using a fww with sitting down or standing up she can feel incisional pain that feels burning but after a minute after changing positions she wont feel it as strong. She rates it as a 6/ 10 zing with positional change Walking is a 3-4/10 but if she tries to take too big of a step she jay get pain She has been wearing thigh highs and has had mild swelling only she is using a fww and its primarily to not over do. She has 3 stairs to get in at her house with a railing and has been doing fine with these. She is 6 days s/p hip surgery today Treatment Goals Patient/Caregiver Goals Pt's goals are to improve hip ROM, decrease pain, increase strength and walking distance PT-OP-C Subjective Start: 05/31/23 11:25 Freq: Status: Active Protocol: Document 08/17/23 13:06 NBM (Rec: 08/17/23 13:54 NB [id number]) OP-PT Subjective Patient Comments Patient Comments Maura reports has been taking care of spouse while he is recovering from COVID and has been stress walking the dog and may have overdone it. Left hip adductors were very tight before last session but much better after Norah worked on them. She's been doing the stretch Norah showed her and it' s been helping a lot. Inside and outside hip 03/19 right now I can feel it but not really troublesome. I'm 12 weeks out now. I'm really trying to get my head back against the wall - I'm getting better, it doesn't hurt anymore, but I'm really trying to get that extension. She also got on the boat on 10 of August for the first time since surgery. She's been working on stairs and going down the 8-9 steps was very hard. Climbing the ladder was tough with raising left leg as she had been walking all day. Dehydration is constant. She notices when tired she's not getting her foot up and clips rug where it curves up with her left foot. Pt thinks her hip ext is only restriction remaining but is verifying with doctor. Maura did a flat mile three days ago without pain. Patient Reported Progress Improving PT-OP-F Manual Assessment Start: 05/31/23 11:25 Freq: Status: Active Protocol: Document 05/31/23 13:00 [facility] (Rec: 06/01/23 13:05 [facility] [id number]) Manual Assessments Soft Tissue Assessment Soft Tissue Mobility Assessment myofascial tightness of the left quad and anterior hip, pt still has her bandage on for 2 weeks so fascial tissue will need further assessment once bandage is removed PT-OP-G Mobility & Gait Start: 05/31/23 11:25 Freq: Status: Active Protocol: Document 05/31/23 13:00 [facility] (Rec: 06/01/23 13:05 [facility] [id number]) OP Mobility Evaluation Bed Mobility Rolling ind Supine to and from Sit ind Transfers Sit to Stand IND and uses FWW Bed to Chair Transfers IND Car Transfers IND Floor Transfers not attempted OP Gait Assessment Gait Gait Assistance Required: Standby Assistance Distance (Feet) 50 Able to Maintain Weight Bearing Status Yes During Gait Assistive Devices Assistive Device Front Wheeled Walker Gait Deviations General Gait Pattern Decreased Stride Length,Step- to Gait Factors Limiting Gait Function Factors Limiting Gait Function Decreased Activity Tolerance, Decreased Strength,Limited Range of Motion,Pain PT-OP-K Range of Motion Start: 05/31/23 11:25 Freq: Status: Active Protocol: Document 05/31/23 13:00 [facility] (Rec: 06/01/23 13:05 [facility] [id number]) Hip Goniometric Range of Motion Hip Left Hip ROM WFL No Testing Position Supine Flexion w/Knee Flexed 90 Abduction 5 Comments pt has anterior hip precautions of no hip extension or ER. She has pain with hip abduction and knee flexion greater than 90 degrees. It is difficult for her to extend her hip flat onto the table and she needs a towel roll under her left knee especially at first Right Hip ROM WFL Yes Testing Position Supine Hip ROM Limitations Hip ROM Limitations Soft Tissue Tightness,Pain, Swelling Comments ANTERIOR HIP PRECAUTIONS PT-OP-M Strength Start: 05/31/23 11:25 Freq: Status: Active Protocol: Document 05/31/23 13:00 [facility] (Rec: 06/01/23 13:05 [facility] [id number]) Hip Strength Hip Manual Muscle Testing Left Comments not formaly tested due to s/p RONNY 6 days ago but decreased AROM of the left hip PT-OP-Q Treatments Start: 05/31/23 11:25 Freq: Status: Active Protocol: Document 08/17/23 13:06 NB (Rec: 08/17/23 13:54 NB [id number]) Cardio Equipment Bicycle (Upright) Duration (Minutes) 6 Resistance 7 Seat Position 2 Other 55-60 RPMs, cues for excessive lateral shifting, upright posture Treadmill Duration (Minutes) 4 Speed 1.2-1.5 Incline 0 Other vc softer L heel strike&stance time;L lat hip pn 3-4/10 w/ ambulation after Therapeutic Exercises Standing Exercises quad stretch Standing Exercise Name 1.using rail for UE support 2. w/ chair Side bilateral Equipment Used chair Reps/Minutes x30s ea Comments chair improves LE alignment standing adducotor stretdh Standing Exercise Name cues for hold time, breath Reps/Minutes x 3-4 reps standing at counter top with left leg straight and R knee bent Comments hold 20-30 seconds lunges Standing Exercise Name pt declines until she clears w / surgeon d/t hip extension precaution SLS star glides Standing Exercise Name HEP review Side bilateral Resistance AROM Equipment Used slider, counter prn for support, mirror Reps/Minutes x10 ea Comments cued increased knee bend hip flexion/march Standing Exercise Name banded marching Side bilateral Resistance Lvl 2 Tb around feet Equipment Used mirror Comments review next tx, continue TB Neuro Re-Education Treatment Balance Activities hurdles Details 6 hurdles Surface therapads Equipment GB Comments increased hip flexion focus PT-OP-T Assessment and Plan Start: 05/31/23 11:25 Freq: Status: Active Protocol: Document 08/17/23 13:06 [facility]BM (Rec: 08/17/23 13:54 [facility] [id number]) Physical Therapy Assessment Goals 4 Impairment Maura scores a 24 on the LE functional scale which places her at 60-79 percent impaired Alf Goal (LTG) Maura score on the LE functional scale is improved by 10 points or greater to reduce functional impairment excellent progress LTG Duration 8 weeks 3 Impairment Decreased hip strength following L RONNY Short Term Goal (STG) Maura is educated on a HEP for improved hip strength 06/28/23: side hip abd, SLR, LAQ, standing hip abd TB #1. 07/12/23: Added stand: TB march, abd. STG Duration 4 weeks progressing 07/12/23 Supply Controller Goal (LTG) Maura is independent with a HEP and demonstrates improvement with hip strength excellent progress LTG Duration 8 weeks 2 Impairment Decreased hip ROM s/p L RONNY and pt has precautions of no hip extension or hip ER Short Term Goal (STG) Maura is educated on a home program to improve hip ROM 06/28/23: Progressing: Independent AROM, progressing with resistance hip abd, LAQ. STG Duration 5 weeks progressing 06/28/23 Supply Controller Goal (LTG) Maura presents with improved hip ROM into hip flexion and abduction 06/28/23: pt able to perform SLR and side hip abd on L AROM tires at 8 reps, TKE cues needed for last 2 reps. Not measured. LTG Duration 8 weeks progressing 06/28/23 1 Impairment left sided hip pain s/p RONNY that ranges from 2 at rest to 7/10 with positional changes Supply Controller Goal (LTG) Maura reports a overall reduction in pain of the left hip pt notes her symptoms are now a 3-4/10 and mainly when she first gets up. Once she is up and moving around its more of a 2 08/17/23: Pt reports a little bit of stiffness when she first gets up LTG Duration 8 weeks Assessment Summary Assessment Maura did a flat mile three days ago without pain demonstrating improvement. 6 hurdles w/ therapads hip flexion focus. Quad stretch w/ chair instead of pulling improves LE alignment. Banded marching Lvl 2 LE alignment improves w/ mirror. Physical Therapy Plan Frequency and Duration Frequency of Treatment 2x/Week Duration of treatment (weeks) 4 Plan of Care Start Date 08/09/23 Plan of Care End Date 09/06/23 Therapeutic Interventions Therapeutic Interventions Home Exercise Program,Manual Therapy,Self-Care/Home Management,Soft Tissue Mobilization,Therapeutic Exercises Modalities Cold Pack/Ice Massage Next Visit Focus/Plan Next Note Type Treatment Note Next Visit Plan Warm up on treadmill next visit, review postural exercses and check in with standing hip flexion and lateral step ups/overs
--- NOTE | 2023-08-24 12:21 | PT.OTN ---
Current Diagnoses Pain in left hip (08/24/23) Stiffness of unspecified hip, not elsewhere classified (08/24/23) Muscle weakness (generalized) (08/24/23) Presence of left artificial hip joint (08/24/23) Physical Therapy Treatment Note PT-OP-A Visit Information Start: 05/31/23 11:25 Freq: Status: Active Protocol: Document 08/24/23 11:22 NBM (Rec: 08/24/23 12:21 NBM [id number]) Out-Patient Physical Therapy Visit Information Visit Information Visit Type Treatment Note Visit Note mask donned Visit Start Time 11:18 Visit Stop Time 12:07 Visit Number 20 Number of QUILTING SUPERVISOR Visits 2 Evaluation Information Evaluation Date 05/31/23 Precautions Precautions 05/25/23: s/p Anterior L hip, precautions PT-OP-B Current Condition Start: 05/31/23 11:25 Freq: Status: Active Protocol: Document 05/31/23 13:05 [facility] (Rec: 05/31/23 13:48 [facility] [id number]) Current Condition History of Current Condition Onset Date 05/25/23 Current Complaints s/p left RONNY, decreased hip ROM, pain, decreased strength History of Current Condition May 24 anterior approach total hip replacement pt is using a fww with sitting down or standing up she can feel incisional pain that feels burning but after a minute after changing positions she wont feel it as strong. She rates it as a 6/ 10 zing with positional change Walking is a 3-4/10 but if she tries to take too big of a step she jay get pain She has been wearing thigh highs and has had mild swelling only she is using a fww and its primarily to not over do. She has 3 stairs to get in at her house with a railing and has been doing fine with these. She is 6 days s/p hip surgery today Treatment Goals Patient/Caregiver Goals Pt's goals are to improve hip ROM, decrease pain, increase strength and walking distance PT-OP-C Subjective Start: 05/31/23 11:25 Freq: Status: Active Protocol: Document 08/24/23 11:22 NBM (Rec: 08/24/23 12:21 NBM [id number]) OP-PT Subjective Patient Comments Patient Comments Maura reports continuing to improve. She heard from surgeon that mini lunges are okay as long as she is keeping feet facing forward and not pivoting, and she is in a minilunge to get up from gardening. She's been walking focusing on longer stride and faster pace and her hip was more sore but it's gotten better over the past two weeks ; her dog sets the pace. She woke up sore this morning but did ex's and walked and L hip feels much better, down to usual 03/19. She's been working on posture at wall. Patient Reported Progress Improving PT-OP-F Manual Assessment Start: 05/31/23 11:25 Freq: Status: Active Protocol: Document 05/31/23 13:00 [facility] (Rec: 06/01/23 13:05 [facility] [id number]) Manual Assessments Soft Tissue Assessment Soft Tissue Mobility Assessment myofascial tightness of the left quad and anterior hip, pt still has her bandage on for 2 weeks so fascial tissue will need further assessment once bandage is removed PT-OP-G Mobility & Gait Start: 05/31/23 11:25 Freq: Status: Active Protocol: Document 05/31/23 13:00 [facility] (Rec: 06/01/23 13:05 [facility] [id number]) OP Mobility Evaluation Bed Mobility Rolling ind Supine to and from Sit ind Transfers Sit to Stand IND and uses FWW Bed to Chair Transfers IND Car Transfers IND Floor Transfers not attempted OP Gait Assessment Gait Gait Assistance Required: Standby Assistance Distance (Feet) 50 Able to Maintain Weight Bearing Status Yes During Gait Assistive Devices Assistive Device Front Wheeled Walker Gait Deviations General Gait Pattern Decreased Stride Length,Step- to Gait Factors Limiting Gait Function Factors Limiting Gait Function Decreased Activity Tolerance, Decreased Strength,Limited Range of Motion,Pain PT-OP-K Range of Motion Start: 05/31/23 11:25 Freq: Status: Active Protocol: Document 05/31/23 13:00 [facility] (Rec: 06/01/23 13:05 [facility] [id number]) Hip Goniometric Range of Motion Hip Left Hip ROM WFL No Testing Position Supine Flexion w/Knee Flexed 90 Abduction 5 Comments pt has anterior hip precautions of no hip extension or ER. She has pain with hip abduction and knee flexion greater than 90 degrees. It is difficult for her to extend her hip flat onto the table and she needs a towel roll under her left knee especially at first Right Hip ROM WFL Yes Testing Position Supine Hip ROM Limitations Hip ROM Limitations Soft Tissue Tightness,Pain, Swelling Comments ANTERIOR HIP PRECAUTIONS PT-OP-M Strength Start: 05/31/23 11:25 Freq: Status: Active Protocol: Document 05/31/23 13:00 [facility] (Rec: 06/01/23 13:05 [facility] [id number]) Hip Strength Hip Manual Muscle Testing Left Comments not formaly tested due to s/p RONNY 6 days ago but decreased AROM of the left hip PT-OP-Q Treatments Start: 05/31/23 11:25 Freq: Status: Active Protocol: Document 08/24/23 11:22 NBM (Rec: 08/24/23 12:21 NB [id number]) Cardio Equipment Bicycle (Upright) Duration (Minutes) 5 Resistance 7 (8 attempted) Seat Position 2 Other 55-60 RPMs, cues for excessive lateral shifting, upright posture Gym Equipment Shuttle Balance red Details a/p: WBOS>NBOS, m/l: WBOS Comments 1.keeping platform still/flat 2.weightshifting w/ eccentric control 3.EO/EC trials (posterior LOB x2 w/ self-recovery) 4.head turns/nods mild L HS cramp reported which resolves w/ standing rest break. Therapeutic Exercises Standing Exercises wall posture Equipment Used wall, pillow behind head next session Reps/Minutes 3' Comments cues for maintaining PPT at wall and chin tuck vs nod lunges Standing Exercise Name 1. mini lunge 2. walking mini lunges - added to HEP Side bilateral Equipment Used mirror, // bars Reps/Minutes 1. x5 ea 2. 2x10ft ea Comments cues for upright posture, toes forward hip flexion/april Standing Exercise Name alternating march Side bilateral Resistance add Lvl 2 Tb next session Equipment Used mirror Reps/Minutes x15 ea Comments cues for eccentric control, wider DANILO. PT-OP-T Assessment and Plan Start: 05/31/23 11:25 Freq: Status: Active Protocol: Document 08/24/23 11:22 [facility]BM (Rec: 08/24/23 12:21 [facility] [place] [id number]) Physical Therapy Assessment Goals 4 Impairment Maura scores a 24 on the LE functional scale which places her at 60-79 percent impaired Skidder Runner Goal (LTG) Maura score on the LE functional scale is improved by 10 points or greater to reduce functional impairment excellent progress LTG Duration 8 weeks 3 Impairment Decreased hip strength following L RONNY Short Term Goal (STG) Maura is educated on a HEP for improved hip strength 06/28/23: side hip abd, SLR, LAQ, standing hip abd TB #1. 07/12/23: Added stand: TB march, abd. STG Duration 4 weeks progressing 07/12/23 Skidder Runner Goal (LTG) Maura is independent with a HEP and demonstrates improvement with hip strength excellent progress LTG Duration 8 weeks 2 Impairment Decreased hip ROM s/p L RONNY and pt has precautions of no hip extension or hip ER Short Term Goal (STG) Maura is educated on a home program to improve hip ROM 06/28/23: Progressing: Independent AROM, progressing with resistance hip abd, LAQ. STG Duration 5 weeks progressing 06/28/23 Skidder Runner Goal (LTG) Maura presents with improved hip ROM into hip flexion and abduction 06/28/23: pt able to perform SLR and side hip abd on L AROM tires at 8 reps, TKE cues needed for last 2 reps. Not measured. LTG Duration 8 weeks progressing 06/28/23 1 Impairment left sided hip pain s/p RONNY that ranges from 2 at rest to 7/10 with positional changes Skidder Runner Goal (LTG) Maura reports a overall reduction in pain of the left hip pt notes her symptoms are now a 3-4/10 and mainly when she first gets up. Once she is up and moving around its more of a 2 08/17/23: Pt reports a little bit of stiffness when she first gets up LTG Duration 8 weeks Assessment Summary Assessment Maura continues to demonstrate progress towards goals. Treatment focus on balance, posture, and LE strengthening. Trialed mini lunge walking today with ok from surgeon per pt - pt requires cues for keeping heels out to keep feet parallel and for upright posture - added to HEP, HO given. Pt occasional cues for upright posture on shuttle balance - progress to staggered stance next session. Physical Therapy Plan Frequency and Duration Frequency of Treatment 2x/Week Duration of treatment (weeks) 4 Plan of Care Start Date 08/09/23 Plan of Care End Date 09/06/23 Therapeutic Interventions Therapeutic Interventions Home Exercise Program,Manual Therapy,Self-Care/Home Management,Soft Tissue Mobilization,Therapeutic Exercises Modalities Cold Pack/Ice Massage Next Visit Focus/Plan Next Note Type Treatment Note Next Visit Plan Warm up on treadmill next visit, review postural exercses and check in with standing hip flexion and lateral step ups/overs
--- NOTE | 2023-09-01 17:34 | PT.OTN ---
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 She rates it as a 6/ 10 zing with positional change Walking is a 3-4/10 but if she tries to take too big of a step she jay get pain She has been wearing thigh highs and has had mild swelling only she is using a fww and its primarily to not over do. She has 3 stairs to get in at her house with a railing and has been doing fine with these. She is 6 days s/p hip surgery today Treatment Goals Patient/Caregiver Goals Pt's goals are to improve hip ROM, decrease pain, increase strength and walking distance PT-OP-C Subjective Start: 05/31/23 11:25 Freq: Status: Active Protocol: Document 09/01/23 10:30 [facility] (Rec: 09/01/23 10:59 [facility] [id number]) OP-PT Subjective Patient Comments Patient Comments pt notes the groin area feels fine but she is still having tightness in the lateral hip more on the outside edge, it still feels a little tight on the left verses the right side . Maura reports she is feeling stronger overall just tight on the left lateral hip and groin Patient Reported Progress Improving PT-OP-F Manual Assessment Start: 05/31/23 11:25 Freq: Status: Active Protocol: Document 05/31/23 13:00 [facility] (Rec: 06/01/23 13:05 [facility] [id number]) Manual Assessments Soft Tissue Assessment Soft Tissue Mobility Assessment myofascial tightness of the left quad and anterior hip, pt still has her bandage on for 2 weeks so fascial tissue will need further assessment once bandage is removed PT-OP-G Mobility & Gait Start: 05/31/23 11:25 Freq: Status: Active Protocol: Document 05/31/23 13:00 [facility] (Rec: 06/01/23 13:05 [facility] [id number]) OP Mobility Evaluation Bed Mobility Rolling ind Supine to and from Sit ind Transfers Sit to Stand IND and uses FWW Bed to Chair Transfers IND Car Transfers IND Floor Transfers not attempted OP Gait Assessment Gait Gait Assistance Required: Standby Assistance Distance (Feet) 50 Able to Maintain Weight Bearing Status Yes During Gait Assistive Devices Assistive Device Front Wheeled Walker Gait Deviations General Gait Pattern Decreased Stride Length,Step- to Gait Factors Limiting Gait Function Factors Limiting Gait Function Decreased Activity Tolerance, Decreased Strength,Limited Range of Motion,Pain PT-OP-K Range of Motion Start: 05/31/23 11:25 Freq: Status: Active Protocol: Document 05/31/23 13:00 [facility] (Rec: 06/01/23 13:05 [facility] [id number]) Hip Goniometric Range of Motion Hip Left Hip ROM WFL No Testing Position Supine Flexion w/Knee Flexed 90 Abduction 5 Comments pt has anterior hip precautions of no hip extension or ER. She has pain with hip abduction and knee flexion greater than 90 degrees. It is difficult for her to extend her hip flat onto the table and she needs a towel roll under her left knee especially at first Right Hip ROM WFL Yes Testing Position Supine Hip ROM Limitations Hip ROM Limitations Soft Tissue Tightness,Pain, Swelling Comments ANTERIOR HIP PRECAUTIONS PT-OP-M Strength Start: 05/31/23 11:25 Freq: Status: Active Protocol: Document 05/31/23 13:00 [facility] (Rec: 06/01/23 13:05 [facility] [id number]) Hip Strength Hip Manual Muscle Testing Left Comments not formaly tested due to s/p RONNY 6 days ago but decreased AROM of the left hip PT-OP-Q Treatments Start: 05/31/23 11:25 Freq: Status: Active Protocol: Document 09/01/23 10:30 [facility] (Rec: 09/06/23 17:34 [facility] [id number]) Manual Therapy Treatment Soft Tissue Mobilization ITB release left Body Location left hip Mobilization Type Myofascial Release Intensity/Depth Moderate gentle adductor release on the left Body Location L adductor, quad Mobilization Type Rolling,Sustained Pressure Intensity/Depth Moderate Body Position Supine Comments pt able to lay flat today without a towel under knee Self-Care/Home Management Treatment Education Patient Education Home Exercise Program Other Education pt was educated in using her gusha over the left distal quad PT-OP-T Assessment and Plan Start: 05/31/23 11:25 Freq: Status: Active Protocol: Document 09/01/23 10:30 [facility] (Rec: 09/06/23 17:34 [facility] [id number]) Physical Therapy Assessment Goals 4 Impairment Myofascial tightness of the ITB Mcc Goal (LTG) Maura score on the LE functional scale is improved by 10 points or greater to reduce functional impairment excellent progress LTG Duration 8 weeks 3 Impairment Pain with walking down a incline or stairs Short Term Goal (STG) Maura is educated on a HEP for improved hip strength 06/28/23: side hip abd, SLR, LAQ, standing hip abd TB #1. 07/12/23: Added stand: TB march, abd. STG Duration 4 weeks progressing 07/12/23 Mcc Goal (LTG) Maura is independent with a HEP and demonstrates improvement with hip strength excellent progress LTG Duration 8 weeks 2 Impairment hip pain ranging from 2-6/10 depending on activity as well as distal ITB pain at the knee Short Term Goal (STG) Maura is educated on a home program to improve hip ROM 06/28/23: Progressing: Independent AROM, progressing with resistance hip abd, LAQ. STG Duration 5 weeks progressing 06/28/23 Narcotics Detective Goal (LTG) Muara presents with improved hip ROM into hip flexion and abduction 06/28/23: pt able to perform SLR and side hip abd on L AROM tires at 8 reps, TKE cues needed for last 2 reps. Not measured. LTG Duration 8 weeks progressing 06/28/23 1 Impairment Decreased hip ROM most significantly into flexion and ER, pt is unable to sit cross legged. Mcc Goal (LTG) Maura reports a overall reduction in pain of the left hip pt notes her symptoms are now a 3-4/10 and mainly when she first gets up. Once she is up and moving around its more of a 2 08/17/23: Pt reports a little bit of stiffness when she first gets up LTG Duration 8 weeks Assessment Summary Assessment Maura is progressing well with strength. She is feeling fascial tightness in the left groin and left ITB. I did work on releasing the adductors today as well as distal ITB. She was educated in gusha use over the distal quad and her HEP was reviewed. She would benefit from continued PT Physical Therapy Plan Frequency and Duration Frequency of Treatment 2x/Week Duration of treatment (weeks) 6 Plan of Care Start Date 09/01/23 Plan of Care End Date 10/06/23 Therapeutic Interventions Therapeutic Interventions Home Exercise Program,Manual Therapy,Self-Care/Home Management,Soft Tissue Mobilization,Therapeutic Exercises Modalities Cold Pack/Ice Massage Next Visit Focus/Plan Next Note Type Treatment Note Next Visit Plan Warm up on treadmill next visit, review postural exercises and check in with standing hip flexion and lateral step ups/overs check in with fascial restrictions next visit in the adductors and ITB
--- NOTE | 2023-09-06 17:35 | PT.OPPOC ---
Physical, Occupational & Speech Therapy At [facility] Current Diagnoses Pain in left hip (09/01/23) Stiffness of unspecified hip, not elsewhere classified (09/01/23) Muscle weakness (generalized) (09/01/23) Presence of left artificial hip joint (09/01/23) Visit Care Team Role Provider Type MARI Barrera Family Provider Advanced Improvement Specialist Primary Care Provider Specialty: Family Practice Address: [address] [place] [address], [id number] Email: [email or web address] [email or web address] Waite MD Attending Provider Non-Staff Referring Provider Specialty: Orthopedic Surgery Address: [address] [place] [address] , [place], [address] Email: Plan Of Care PT-OP-B Current Condition Start: 05/31/23 11:25 Freq: Status: Active Protocol: Document 05/31/23 13:05 [facility] (Rec: 05/31/23 13:48 [facility] [id number]) Current Condition History of Current Condition Onset Date 05/25/23 Current Complaints s/p left RONNY, decreased hip ROM, pain, decreased strength History of Current Condition May 24 anterior approach total hip replacement pt is using a fww with sitting down or standing up she can feel incisional pain that feels burning but after a minute after changing positions she wont feel it as strong. She rates it as a 6/ 10 zing with positional change Walking is a 3-4/10 but if she tries to take too big of a step she jay get pain She has been wearing thigh highs and has had mild swelling only she is using a fww and its primarily to not over do. She has 3 stairs to get in at her house with a railing and has been doing fine with these. She is 6 days s/p hip surgery today Treatment Goals Patient/Caregiver Goals Pt's goals are to improve hip ROM, decrease pain, increase strength and walking distance PT-OP-T Assessment and Plan Start: 05/31/23 11:25 Freq: Status: Active Protocol: Document 09/01/23 10:30 [facility] (Rec: 09/06/23 17:34 [facility] [id number]) Physical Therapy Assessment Goals 4 Impairment Myofascial tightness of the ITB Assisted Goal (LTG) Maura score on the LE functional scale is improved by 10 points or greater to reduce functional impairment excellent progress LTG Duration 8 weeks 3 Impairment Pain with walking down a incline or stairs Short Term Goal (STG) Maura is educated on a HEP for improved hip strength 06/28/23: side hip abd, SLR, LAQ, standing hip abd TB #1. 07/12/23: Added stand: TB march, abd. 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 STG Duration 5 weeks progressing 06/28/23 Assisted Goal (LTG) Maura presents with improved hip ROM into hip flexion and abduction 06/28/23: pt able to perform SLR and side hip abd on L AROM tires at 8 reps, TKE cues needed for last 2 reps. Not measured. LTG Duration 8 weeks progressing 06/28/23 1 Impairment Decreased hip ROM most significantly into flexion and ER, pt is unable to sit cross legged. Assisted Goal (LTG) Maura reports a overall reduction in pain of the left hip pt notes her symptoms are now a 3-4/10 and mainly when she first gets up. Once she is up and moving around its more of a 2 08/17/23: Pt reports a little bit of stiffness when she first gets up LTG Duration 8 weeks Assessment Summary Assessment Maura is progressing well with strength. She is feeling fascial tightness in the left groin and left ITB. I did work on releasing the adductors today as well as distal ITB. She was educated in gusha use over the distal quad and her HEP was reviewed. She would benefit from continued PT Physical Therapy Plan Frequency and Duration Frequency of Treatment 2x/Week Duration of treatment (weeks) 6 Plan of Care Start Date 09/01/23 Plan of Care End Date 10/06/23 Therapeutic Interventions Therapeutic Interventions Home Exercise Program,Manual Therapy,Self-Care/Home Management,Soft Tissue Mobilization,Therapeutic Exercises Modalities Cold Pack/Ice Massage Next Visit Focus/Plan Next Note Type Treatment Note Next Visit Plan Warm up on treadmill next visit, review postural exercses and check in with standing hip flexion and lateral step ups/overs check in with fascial restrictions next visit in the adductors and ITB Plan of Care Dates Plan of Care Start Date 09/01/23 Plan of Care End Date 10/06/23 Electronically Signed by: Norah Yu, PT 09/06/23 8170 If you are in agreement with this Plan of Care, please return a signed and dated copy. I have reviewed this Plan of Care and certify that the skilled therapy services above are required to meet the patient?s needs. Physician Signature Date Printed Name and Credentials Clinical Instructor Signature Printed Name and Credentials
--- NOTE | 2023-09-09 17:08 | PT.OTN ---
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 1 Evaluation Information Evaluation Date 05/31/23 Precautions Precautions 05/25/23: s/p Anterior L hip, precautions PT-OP-B Current Condition Start: 05/31/23 11:25 Freq: Status: Active Protocol: Document 05/31/23 13:05 [facility] (Rec: 05/31/23 13:48 [facility] [id number]) Current Condition History of Current Condition Onset Date 05/25/23 Current Complaints s/p left RONNY, decreased hip ROM, pain, decreased strength History of Current Condition May 24 anterior approach total hip replacement pt is using a fww with sitting down or standing up she can feel incisional pain that feels burning but after a minute after changing positions she wont feel it as strong. She rates it as a 6/ 10 zing with positional change Walking is a 3-4/10 but if she tries to take too big of a step she jay get pain She has been wearing thigh highs and has had mild swelling only she is using a fww and its primarily to not over do. She has 3 stairs to get in at her house with a railing and has been doing fine with these. She is 6 days s/p hip surgery today Treatment Goals Patient/Caregiver Goals Pt's goals are to improve hip ROM, decrease pain, increase strength and walking distance PT-OP-C Subjective Start: 05/31/23 11:25 Freq: Status: Active Protocol: Document 09/09/23 16:40 NBM (Rec: 09/09/23 17:08 NBM [id number]) OP-PT Subjective Patient Comments Patient Comments Maura reports L hip and groin tenderness is improved since last visit but still present; she's been using water massager and cupping which seem to work even better than Guasha tool, not massage gun yet. She was on the boat Tuesday and Tuesday and knees hurt frmo 8 steps repeatedly and many inclines, but she was able to push boat in with Left leg back in extension in lunge position without thinking about and no pain. She tried lowering her bike seat one level at home but had knee pain so returned the seat height. She does hamstring stretches on the upright bike. She'd like help sorting newer ex's into strengthening and stretching. Patient Reported Progress Improving PT-OP-F Manual Assessment Start: 05/31/23 11:25 Freq: Status: Active Protocol: Document 05/31/23 13:00 [facility] (Rec: 06/01/23 13:05 [facility] [id number]) Manual Assessments Soft Tissue Assessment Soft Tissue Mobility Assessment myofascial tightness of the left quad and anterior hip, pt still has her bandage on for 2 weeks so fascial tissue will need further assessment once bandage is removed PT-OP-G Mobility & Gait Start: 05/31/23 11:25 Freq: Status: Active Protocol: Document 05/31/23 13:00 [facility] (Rec: 06/01/23 13:05 [facility] [id number]) OP Mobility Evaluation Bed Mobility Rolling ind Supine to and from Sit ind Transfers Sit to Stand IND and uses FWW Bed to Chair Transfers IND Car Transfers IND Floor Transfers not attempted OP Gait Assessment Gait Gait Assistance Required: Standby Assistance Distance (Feet) 50 Able to Maintain Weight Bearing Status Yes During Gait Assistive Devices Assistive Device Front Wheeled Walker Gait Deviations General Gait Pattern Decreased Stride Length,Step- to Gait Factors Limiting Gait Function Factors Limiting Gait Function Decreased Activity Tolerance, Decreased Strength,Limited Range of Motion,Pain PT-OP-K Range of Motion Start: 05/31/23 11:25 Freq: Status: Active Protocol: Document 05/31/23 13:00 [facility] (Rec: 06/01/23 13:05 [facility] [id number]) Hip Goniometric Range of Motion Hip Left Hip ROM WFL No Testing Position Supine Flexion w/Knee Flexed 90 Abduction 5 Comments pt has anterior hip precautions of no hip extension or ER. She has pain with hip abduction and knee flexion greater than 90 degrees. It is difficult for her to extend her hip flat onto the table and she needs a towel roll under her left knee especially at first Right Hip ROM WFL Yes Testing Position Supine Hip ROM Limitations Hip ROM Limitations Soft Tissue Tightness,Pain, Swelling Comments ANTERIOR HIP PRECAUTIONS PT-OP-M Strength Start: 05/31/23 11:25 Freq: Status: Active Protocol: Document 05/31/23 13:00 [facility] (Rec: 06/01/23 13:05 [facility] [id number]) Hip Strength Hip Manual Muscle Testing Left Comments not formaly tested due to s/p RONNY 6 days ago but decreased AROM of the left hip PT-OP-Q Treatments Start: 05/31/23 11:25 Freq: Status: Active Protocol: Document 09/09/23 16:40 [facility] (Rec: 09/09/23 17:08 [facility] [id number]) Cardio Equipment Bicycle (Upright) Duration (Minutes) 6 Resistance 7 Seat Position 2 Other cues for excessive lateral weightshift L>R Therapeutic Exercises Sitting Exercises stretching Sitting Exercise Name seated hamstring stretch Side bilateral Reps/Minutes ea 2x10 breath cycles (~30s) Comments improved response Standing Exercises HS stretch Standing Exercise Name standing HS stretch Side bilateral Reps/Minutes x30s Comments added to walking HEP as needed lunges Standing Exercise Name 1. mini lunge-not today 2. walking mini lunges - HEP Side bilateral Reps/Minutes 1. x5 ea-not today 2. 4x15ft ea Comments cues for upright posture, gluteal act, heels down Manual Therapy Treatment Consent Patient gave verbal consent for manual Yes treatment Soft Tissue Mobilization ITB release left Body Location left hip, TFL Mobilization Type Myofascial Release Intensity/Depth Moderate Body Position Supine, Hooklying Comments positive feedback response gentle adductor release on the left Body Location L adductor, distal quad Mobilization Type Rolling,Sustained Pressure Intensity/Depth Moderate Body Position Supine, Hooklying Comments -circular strokes distal to proximal -pt able to lay flat today without a towel under knee PT-OP-T Assessment and Plan Start: 05/31/23 11:25 Freq: Status: Active Protocol: Document 09/09/23 16:40 [facility] (Rec: 09/09/23 17:08 [facility] [id number]) Physical Therapy Assessment Goals 4 Impairment Myofascial tightness of the ITB Edge Worker Goal (LTG) Maura score on the LE functional scale is improved by 10 points or greater to reduce functional impairment excellent progress LTG Duration 8 weeks 3 Impairment Pain with walking down a incline or stairs Short Term Goal (STG) Maura is educated on a HEP for improved hip strength 06/28/23: side hip abd, SLR, LAQ, standing hip abd TB #1. 07/12/23: Added stand: TB march, abd. STG Duration 4 weeks progressing 07/12/23 Group Home Goal (LTG) Maura is independent with a HEP and demonstrates improvement with hip strength excellent progress LTG Duration 8 weeks 2 Impairment hip pain ranging from 2-6/10 depending on activity as well as distal ITB pain at the knee Short Term Goal (STG) Maura is educated on a home program to improve hip ROM 06/28/23: Progressing: Independent AROM, progressing with resistance hip abd, LAQ. STG Duration 5 weeks progressing 06/28/23 Group Home Goal (LTG) Maura presents with improved hip ROM into hip flexion and abduction 06/28/23: pt able to perform SLR and side hip abd on L AROM tires at 8 reps, TKE cues needed for last 2 reps. Not measured. LTG Duration 8 weeks progressing 06/28/23 1 Impairment Decreased hip ROM most significantly into flexion and ER, pt is unable to sit cross legged. Group Home Goal (LTG) Maura reports a overall reduction in pain of the left hip pt notes her symptoms are now a 3-4/10 and mainly when she first gets up. Once she is up and moving around its more of a 2 08/17/23: Pt reports a little bit of stiffness when she first gets up LTG Duration 8 weeks Assessment Summary Assessment Maura presents w/ L hip and groin tenderness improved since last visit 08/31 but still present, and with binder of ex's for sorting in strength and stretching. Treatment focus on improving knee pain and L hip and groin tenderness. Pt instructed in seated hamstring stretch after warmup prior to lowering bike seat to assess for improved knee pain. She is also instructed in standing HS stretch for walking program as needed. She requires cues with mini lunge for upright postre, gluteal activation, and keeping heels down and demonstrates improved self awareness w/ cueing and repetition; she demos improved self-awareness of neutral foot positioning overall. Palpable tension to L TFL and adductors improves with manual therapy and pt reports no L hip pain end of session but tingly sensation in L lateral hip. Home ex's marked for stretching or strengthening focus to aid with HEP compliance. Physical Therapy Plan Frequency and Duration Frequency of Treatment 2x/Week Duration of treatment (weeks) 6 Plan of Care Start Date 09/01/23 Plan of Care End Date 10/06/23 Therapeutic Interventions Therapeutic Interventions Home Exercise Program,Manual Therapy,Self-Care/Home Management,Soft Tissue Mobilization,Therapeutic Exercises Modalities Cold Pack/Ice Massage Next Visit Focus/Plan Next Note Type Treatment Note Next Visit Plan Check if seated HS stretch improves knee pain with lowered bike seat. POC: Warm up on treadmill next visit, review postural exercses and check in with standing hip flexion and lateral step ups/overs check in with fascial restrictions next visit in the adductors and ITB
--- NOTE | 2023-09-29 16:00 | PT.OPPOC ---
Physical, Occupational & Speech Therapy At [facility] Current Diagnoses Pain in left hip (09/29/23) Stiffness of unspecified hip, not elsewhere classified (09/29/23) Muscle weakness (generalized) (09/29/23) Presence of left artificial hip joint (09/29/23) Visit Care Team Role Provider Type MARI Barrera Family Provider Advanced Brancher Primary Care Provider Specialty: Family Practice Address: [address] [place] [address], [id number] Email: [email or web address] [email or web address] Waite MD Attending Provider Non-Staff Referring Provider Specialty: Orthopedic Surgery Address: [address] [place] [address] , [place], [address] Email: Plan Of Care PT-OP-B Current Condition Start: 05/31/23 11:25 Freq: Status: Active Protocol: Document 05/31/23 13:05 [facility] (Rec: 05/31/23 13:48 [facility] [id number]) Current Condition History of Current Condition Onset Date 05/25/23 Current Complaints s/p left RONNY, decreased hip ROM, pain, decreased strength History of Current Condition May 24 anterior approach total hip replacement pt is using a fww with sitting down or standing up she can feel incisional pain that feels burning but after a minute after changing positions she wont feel it as strong. She rates it as a 6/ 10 zing with positional change Walking is a 3-4/10 but if she tries to take too big of a step she jay get pain She has been wearing thigh highs and has had mild swelling only she is using a fww and its primarily to not over do. She has 3 stairs to get in at her house with a railing and has been doing fine with these. She is 6 days s/p hip surgery today Treatment Goals Patient/Caregiver Goals Pt's goals are to improve hip ROM, decrease pain, increase strength and walking distance PT-OP-T Assessment and Plan Start: 05/31/23 11:25 Freq: Status: Active Protocol: Document 09/29/23 13:04 [facility] (Rec: 09/29/23 13:47 [facility] [id number]) Physical Therapy Assessment Goals 4 Impairment Myofascial tightness of the ITB Half-Way Goal (LTG) Maura score on the LE functional scale is improved by 10 points or greater to reduce functional impairment excellent progress LTG Duration 8 weeks 3 Impairment Pain with walking down a incline or stairs Short Term Goal (STG) Maura is educated on a HEP for improved hip strength 06/28/23: side hip abd, SLR, LAQ, standing hip abd TB #1. 07/12/23: Added stand: TB march, abd. STG Duration 4 weeks progressing 07/12/23 Sociology Instructor Goal (LTG) Maura is independent with a HEP and demonstrates improvement with hip strength excellent progress LTG Duration 8 weeks 2 Impairment hip pain ranging from 2-6/10 depending on activity as well as distal ITB pain at the knee Short Term Goal (STG) Maura is educated on a home program to improve hip ROM 09/29/23 Goal met STG Duration 5 weeks progressing 06/28/23 Sociology Instructor Goal (LTG) Maura presents with improved hip ROM into hip flexion and abduction 09/29/23 goal met LTG Duration 8 weeks progressing 06/28/23 1 Impairment Decreased hip ROM most significantly into flexion and ER, pt is unable to sit cross legged. Half-Way Goal (LTG) Maura reports a overall reduction in pain of the left hip pt notes her symptoms are now a 3-4/10 and mainly when she first gets up. Once she is up and moving around its more of a 2 08/17/23: Pt reports a little bit of stiffness when she first gets up LTG Duration 8 weeks Assessment Summary Assessment Maura is progressing very well at 4 months s/p left hip replacement. 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 She has been able to get on and off her boat and has gone out on the boat which she is very excited about. She would like continued PT for balance training and dynamic strengthening activities. Physical Therapy Plan Frequency and Duration Frequency of Treatment 1x/Week Duration of treatment (weeks) 12 Plan of Care Start Date 09/29/23 Plan of Care End Date 12/22/23 Therapeutic Interventions Therapeutic Interventions Home Exercise Program,Manual Therapy,Self-Care/Home Management,Soft Tissue Mobilization,Therapeutic Exercises Modalities Cold Pack/Ice Massage Next Visit Focus/Plan Next Note Type Treatment Note Next Visit Plan Warm up on treadmill next visit, review postural exercses and check in with standing hip flexion and lateral step ups/overs check in with fascial restrictions next visit in the adductors and ITB Plan of Care Dates Plan of Care Start Date 09/29/23 Plan of Care End Date 12/22/23 Electronically Signed by: Norah Yu, PT 10/05/23 2733 If you are in agreement with this Plan of Care, please return a signed and dated copy. I have reviewed this Plan of Care and certify that the skilled therapy services above are required to meet the patient?s needs. Physician Signature Date Printed Name and Credentials Clinical Instructor Signature Printed Name and Credentials
--- NOTE | 2023-09-29 16:00 | PT.OTN ---
Current Diagnoses Pain in left hip (09/29/23) Stiffness of unspecified hip, not elsewhere classified (09/29/23) Muscle weakness (generalized) (09/29/23) Presence of left artificial hip joint (09/29/23) Physical Therapy Treatment Note PT-OP-A Visit Information Start: 05/31/23 11:25 Freq: Status: Active Protocol: Document 09/29/23 16:44 [facility] (Rec: 09/29/23 16:45 [facility] [id number]) Out-Patient Physical Therapy Visit Information Visit Information Visit Type Progress Note Visit Start Time 13:00 Visit Stop Time 13:45 Visit Number 24 Number of OFFSET PRINTER Visits 0 PT-OP-B Current Condition Start: 05/31/23 11:25 Freq: Status: Active Protocol: Document 05/31/23 13:05 [facility] (Rec: 05/31/23 13:48 [facility] [id number]) Current Condition History of Current Condition Onset Date 05/25/23 Current Complaints s/p left RONNY, decreased hip ROM, pain, decreased strength History of Current Condition May 24 anterior approach total hip replacement pt is using a fww with sitting down or standing up she can feel incisional pain that feels burning but after a minute after changing positions she wont feel it as strong. She rates it as a 6/ 10 zing with positional change Walking is a 3-4/10 but if she tries to take too big of a step she jay get pain She has been wearing thigh highs and has had mild swelling only she is using a fww and its primarily to not over do. She has 3 stairs to get in at her house with a railing and has been doing fine with these. She is 6 days s/p hip surgery today Treatment Goals Patient/Caregiver Goals Pt's goals are to improve hip ROM, decrease pain, increase strength and walking distance PT-OP-C Subjective Start: 05/31/23 11:25 Freq: Status: Active Protocol: Document 09/29/23 13:02 [facility] (Rec: 09/29/23 13:04 [facility] [id number]) OP-PT Subjective Patient Comments Patient Comments pt is 4 months out, she was able to get out on the boat for a few days, she brought her cane for doing down the steps Patient Reported Progress Improving PT-OP-F Manual Assessment Start: 05/31/23 11:25 Freq: Status: Active Protocol: Document 05/31/23 13:00 [facility] (Rec: 06/01/23 13:05 [facility] [id number]) Manual Assessments Soft Tissue Assessment Soft Tissue Mobility Assessment myofascial tightness of the left quad and anterior hip, pt still has her bandage on for 2 weeks so fascial tissue will need further assessment once bandage is removed PT-OP-G Mobility & Gait Start: 05/31/23 11:25 Freq: Status: Active Protocol: Document 05/31/23 13:00 [facility] (Rec: 06/01/23 13:05 [facility] [id number]) OP Mobility Evaluation Bed Mobility Rolling ind Supine to and from Sit ind Transfers Sit to Stand IND and uses FWW Bed to Chair Transfers IND Car Transfers IND Floor Transfers not attempted OP Gait Assessment Gait Gait Assistance Required: Standby Assistance Distance (Feet) 50 Able to Maintain Weight Bearing Status Yes During Gait Assistive Devices Assistive Device Front Wheeled Walker Gait Deviations General Gait Pattern Decreased Stride Length,Step- to Gait Factors Limiting Gait Function Factors Limiting Gait Function Decreased Activity Tolerance, Decreased Strength,Limited Range of Motion,Pain PT-OP-K Range of Motion Start: 05/31/23 11:25 Freq: Status: Active Protocol: Document 05/31/23 13:00 [facility] (Rec: 06/01/23 13:05 [facility] [id number]) Hip Goniometric Range of Motion Hip Left Hip ROM WFL No Testing Position Supine Flexion w/Knee Flexed 90 Abduction 5 Comments pt has anterior hip precautions of no hip extension or ER. She has pain with hip abduction and knee flexion greater than 90 degrees. It is difficult for her to extend her hip flat onto the table and she needs a towel roll under her left knee especially at first Right Hip ROM WFL Yes Testing Position Supine Hip ROM Limitations Hip ROM Limitations Soft Tissue Tightness,Pain, Swelling Comments ANTERIOR HIP PRECAUTIONS PT-OP-M Strength Start: 05/31/23 11:25 Freq: Status: Active Protocol: Document 05/31/23 13:00 [facility] (Rec: 06/01/23 13:05 [facility] [id number]) Hip Strength Hip Manual Muscle Testing Left Comments not formaly tested due to s/p RONNY 6 days ago but decreased AROM of the left hip PT-OP-Q Treatments Start: 05/31/23 11:25 Freq: Status: Active Protocol: Document 09/29/23 13:00 [facility] (Rec: 10/05/23 13:10 [facility] [id number]) Gym Equipment Shuttle Balance red Details a/p: WBOS>NBOS, m/l: WBOS Comments 1.keeping platform still/flat 2.weightshifting w/ eccentric control 3.EO/EC trials (posterior LOB x2 w/ self-recovery) 4.head turns/nods mild L HS cramp reported which resolves w/ standing rest break. Therapeutic Exercises Standing Exercises standing adducotor stretdh Standing Exercise Name cues for hold time, breath Reps/Minutes x 3-4 reps standing at counter top with left leg straight and R knee bent Comments hold 20-30 seconds lateral step ups Equipment Used 4 step Reps/Minutes x 10 standing single leg stance Standing Exercise Name pt places foot on lower leg Side bilateral Reps/Minutes trials (10-15s ea) Comments pt to practice balance at home to prepare for stepping onto the boat step ups Standing Exercise Name verbal review HEP Side right Equipment Used 8-11 step Comments cued heel drive, glut firing wt shift over stance LE Neuro Re-Education Treatment Balance Activities step assimulation boat Equipment 2 stacked balance beams, 1 michelle bwtn 4step and beam+ block(dock/boat gap) Comments lateral stepping R into boat ( 4 step>floor), 6 gap step up /over and slight descend. Good response, cued slow stepping control not need UE support but has on boat to use . hurdles Comments increased hip flexion focu PT-OP-T Assessment and Plan Start: 05/31/23 11:25 Freq: Status: Active Protocol: Document 09/29/23 13:04 [facility] (Rec: 09/29/23 13:47 [facility] [id number]) Physical Therapy Assessment Goals 4 Impairment Myofascial tightness of the ITB Fci Goal (LTG) Maura score on the LE functional scale is improved by 10 points or greater to reduce functional impairment excellent progress LTG Duration 8 weeks 3 Impairment Pain with walking down a incline or stairs Short Term Goal (STG) Maura is educated on a HEP for improved hip strength 06/28/23: side hip abd, SLR, LAQ, standing hip abd TB #1. 07/12/23: Added stand: TB april, abd. STG Duration 4 weeks progressing 07/12/23 [facility]ci Goal (LTG) Maura is independent with a HEP and demonstrates improvement with hip strength excellent progress LTG Duration 8 weeks 2 Impairment hip pain ranging from 2-6/10 depending on activity as well as distal ITB pain at the knee Short Term Goal (STG) Maura is educated on a home program to improve hip ROM 09/29/23 Goal met STG Duration 5 weeks progressing 06/28/23 [facility]ci Goal (LTG) Maura presents with improved hip ROM into hip flexion and abduction 09/29/23 goal met LTG Duration 8 weeks progressing 06/28/23 1 Impairment Decreased hip ROM most significantly into flexion and ER, pt is unable to sit cross legged. Apartment Property Manager Goal (LTG) Maura reports a overall reduction in pain of the left hip pt notes her symptoms are now a 3-4/10 and mainly when she first gets up. Once she is up and moving around its more of a 2 08/17/23: Pt reports a little bit of stiffness when she first gets up LTG Duration 8 weeks Assessment Summary Assessment Maura is progressing very well at 4 months s/p left hip replacement. 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 She has been able to get on and off her boat and has gone out on the boat which she is very excited about. She would like continued PT for balance training and dynamic strengtheing activities. Physical Therapy Plan Frequency and Duration Frequency of Treatment 1x/Week Duration of treatment (weeks) 12 Plan of Care Start Date 09/29/23 Plan of Care End Date 12/22/23 Therapeutic Interventions Therapeutic Interventions Home Exercise Program,Manual Therapy,Self-Care/Home Management,Soft Tissue Mobilization,Therapeutic Exercises Modalities Cold Pack/Ice Massage Next Visit Focus/Plan Next Note Type Treatment Note Next Visit Plan Warm up on treadmill next visit, review postural exercses and check in with standing hip flexion and lateral step ups/overs check in with fascial restrictions next visit in the adductors and ITB
--- NOTE | 2023-11-15 16:20 | PT-OP ANOTE ---
THERMOMETER PRODUCTION WORKER called pt and left message, hasn't been seen since 09/29/23, needs to see PT for updated PN >30 days. DIscussed cancelling tomorrow's appt and follow up with PT 11/23 as scheduled. Asked to call back and speak to THERMOMETER PRODUCTION WORKER if needed for further explaination if needed.
--- NOTE | 2023-11-24 16:30 | PT.OTN ---
Current Diagnoses Pain in left hip (11/24/23) Stiffness of unspecified hip, not elsewhere classified (11/24/23) Muscle weakness (generalized) (11/24/23) Presence of left artificial hip joint (11/24/23) Physical Therapy Treatment Note PT-OP-A Visit Information Start: 05/31/23 11:25 Freq: Status: Active Protocol: Document 11/24/23 16:16 [facility] (Rec: 11/24/23 16:29 [facility] [id number]) Out-Patient Physical Therapy Visit Information Visit Information Visit Type Progress Note Visit Start Time 15:20 Visit Stop Time 16:05 Visit Number 25 Number of HOOP EXPANDER Visits 0 Evaluation Information Evaluation Date 05/31/23 PT-OP-B Current Condition Start: 05/31/23 11:25 Freq: Status: Active Protocol: Document 05/31/23 13:05 [facility] (Rec: 05/31/23 13:48 [facility] [id number]) Current Condition History of Current Condition Onset Date 05/25/23 Current Complaints s/p left RONNY, decreased hip ROM, pain, decreased strength History of Current Condition May 24 anterior approach total hip replacement pt is using a fww with sitting down or standing up she can feel incisional pain that feels burning but after a minute after changing positions she wont feel it as strong. She rates it as a 6/ 10 zing with positional change Walking is a 3-4/10 but if she tries to take too big of a step she jay get pain She has been wearing thigh highs and has had mild swelling only she is using a fww and its primarily to not over do. She has 3 stairs to get in at her house with a railing and has been doing fine with these. She is 6 days s/p hip surgery today Treatment Goals Patient/Caregiver Goals Pt's goals are to improve hip ROM, decrease pain, increase strength and walking distance PT-OP-C Subjective Start: 05/31/23 11:25 Freq: Status: Active Protocol: Document 11/24/23 15:22 [facility] (Rec: 11/24/23 15:35 [facility] [id number]) OP-PT Subjective Patient Comments Patient Comments pt notes the stairs on her boat are still hard to do and she feels discomfort with a hip hinge up the only time she feels it was getting out of bed and with leg lifts as well as with the stairs in her boat. Her MD did order a CT scan for her and she hasn't done it yet. He thinks it could be iliopsoas tendonitis. She is not feeling the lateral tightness and it is primarily in the middle quad and anterior hip worse with hip flexion activities PT-OP-F Manual Assessment Start: 05/31/23 11:25 Freq: Status: Active Protocol: Document 05/31/23 13:00 [facility] (Rec: 06/01/23 13:05 [facility] [id number]) Manual Assessments Soft Tissue Assessment Soft Tissue Mobility Assessment myofascial tightness of the left quad and anterior hip, pt still has her bandage on for 2 weeks so fascial tissue will need further assessment once bandage is removed PT-OP-G Mobility & Gait Start: 05/31/23 11:25 Freq: Status: Active Protocol: Document 05/31/23 13:00 [facility] (Rec: 06/01/23 13:05 [facility] [id number]) OP Mobility Evaluation Bed Mobility Rolling ind Supine to and from Sit ind Transfers Sit to Stand IND and uses FWW Bed to Chair Transfers IND Car Transfers IND Floor Transfers not attempted OP Gait Assessment Gait Gait Assistance Required: Standby Assistance Distance (Feet) 50 Able to Maintain Weight Bearing Status Yes During Gait Assistive Devices Assistive Device Front Wheeled Walker Gait Deviations General Gait Pattern Decreased Stride Length,Step- to Gait Factors Limiting Gait Function Factors Limiting Gait Function Decreased Activity Tolerance, Decreased Strength,Limited Range of Motion,Pain PT-OP-K Range of Motion Start: 05/31/23 11:25 Freq: Status: Active Protocol: Document 05/31/23 13:00 [facility] (Rec: 06/01/23 13:05 [facility] [id number]) Hip Goniometric Range of Motion Hip Left Hip ROM WFL No Testing Position Supine Flexion w/Knee Flexed 90 Abduction 5 Comments pt has anterior hip precautions of no hip extension or ER. She has pain with hip abduction and knee flexion greater than 90 degrees. It is difficult for her to extend her hip flat onto the table and she needs a towel roll under her left knee especially at first Right Hip ROM WFL Yes Testing Position Supine Hip ROM Limitations Hip ROM Limitations Soft Tissue Tightness,Pain, Swelling Comments ANTERIOR HIP PRECAUTIONS PT-OP-M Strength Start: 05/31/23 11:25 Freq: Status: Active Protocol: Document 05/31/23 13:00 [facility] (Rec: 06/01/23 13:05 [facility] [id number]) Hip Strength Hip Manual Muscle Testing Left Comments not formaly tested due to s/p RONNY 6 days ago but decreased AROM of the left hip PT-OP-Q Treatments Start: 05/31/23 11:25 Freq: Status: Active Protocol: Document 11/24/23 16:16 [facility] (Rec: 11/24/23 16:29 [facility] [id number]) Therapeutic Exercises Standing Exercises standing adducotor stretdh Standing Exercise Name reviewed for HEP lateral step ups Standing Exercise Name reviewed for HEP hip abd Standing Exercise Name reviewed for HEP PT-OP-T Assessment and Plan Start: 05/31/23 11:25 Freq: Status: Active Protocol: Document 11/24/23 16:16 [facility] (Rec: 11/24/23 16:29 [facility] [id number]) Physical Therapy Assessment Goals 4 Impairment Myofascial tightness of the ITB Prison Goal (LTG) overall ITB tightness has decreased and she is not experiencing the lateral ITB tenderness LTG Duration 8 weeks 3 Impairment Pain with walking down a incline or stairs Short Term Goal (STG) Maura is educated on a HEP for improved hip strength good progress STG Duration 4 weeks progressing 07/12/23 Harness Puller Goal (LTG) Maura is independent with a HEP and demonstrates improvement with hip strength This was going really well for Maura however she is no dealing with tendonitis type symptoms and is experiencing discomfort with ambulation up/ down stairs LTG Duration 8 weeks 2 Impairment hip pain ranging from 2-6/10 depending on activity as well as distal ITB pain at the knee Short Term Goal (STG) Maura is educated on a home program to improve hip ROM 09/29/23 Goal met STG Duration 5 weeks progressing 06/28/23 Prison Goal (LTG) Maura presents with improved hip ROM into hip flexion and abduction 09/29/23 goal met LTG Duration 8 weeks progressing 06/28/23 1 Impairment Decreased hip ROM most significantly into flexion and ER, pt is unable to sit cross legged. Prison Goal (LTG) Maura reports a overall reduction in pain of the left hip pain with active hip flexion only at this time, pain goes away after active hip flexion LTG Duration 8 weeks Assessment Summary Assessment Maura returns to PT today after not being seen since September 28. She is doing well overall but is experiencing iliopsoas discomort with active hip flexion and going up/down stairs. She is feeling that it is iliopsoas tendonitis. A CT scan has been ordered to make sure that the tissue around the implant all looks good. With assessement today Maura is guarded and tight in the right adductors and psoas musculature especially at the distal attachment. She has a history of hysterectomy and she notes some increase in bladder irritation in the past month at night. There is quite a bit of fascial restrictions across the suprapubic fascia as well that is chronic in nature but may be contributing to the tightness she is feeling. Maura would benefit from continued PT focusing on fascial release and calming down the psoas attachments to help return to active hip flexion without discomfort. Physical Therapy Plan Frequency and Duration Frequency of Treatment 1x/Week Duration of treatment (weeks) 12 Plan of Care Start Date 11/24/23 Plan of Care End Date 03/01/24 Therapeutic Interventions Therapeutic Interventions Home Exercise Program,Manual Therapy,Self-Care/Home Management,Soft Tissue Mobilization,Therapeutic Exercises Modalities Cold Pack/Ice Massage
--- NOTE | 2023-11-24 16:30 | PT.OPPOC ---
Physical, Occupational & Speech Therapy At [facility] Current Diagnoses Pain in left hip (11/24/23) Stiffness of unspecified hip, not elsewhere classified (11/24/23) Muscle weakness (generalized) (11/24/23) Presence of left artificial hip joint (11/24/23) Visit Care Team Role Provider Type MARI Barrera Family Provider Advanced Division Commander Primary Care Provider Specialty: Family Practice Address: [address] [place] [address], [id number] Email: [email or web address] [email or web address] MD Attending Provider Non-Staff Referring Provider Specialty: Orthopedic Surgery Address: [address] [place] [address] , [place], [address] Email: Plan Of Care PT-OP-B Current Condition Start: 05/31/23 11:25 Freq: Status: Active Protocol: Document 05/31/23 13:05 [facility] (Rec: 05/31/23 13:48 [facility] [id number]) Current Condition History of Current Condition Onset Date 05/25/23 Current Complaints s/p left RONNY, decreased hip ROM, pain, decreased strength History of Current Condition May 24 anterior approach total hip replacement pt is using a fww with sitting down or standing up she can feel incision pain that feels burning but after a minute after changing positions she wont feel it as strong. She rates it as a 6/ 10 zing with positional change Walking is a 3-4/10 but if she tries to take too big of a step she jay get pain She has been wearing thigh highs and has had mild swelling only she is using a fww and its primarily to not over do. She has 3 stairs to get in at her house with a railing and has been doing fine with these. She is 6 days s/p hip surgery today Treatment Goals Patient/Caregiver Goals Pt's goals are to improve hip ROM, decrease pain, increase strength and walking distance PT-OP-T Assessment and Plan Start: 05/31/23 11:25 Freq: Status: Active Protocol: Document 11/24/23 16:16 [facility] (Rec: 11/24/23 16:29 [facility] [id number]) Physical Therapy Assessment Goals 4 Impairment Myofascial tightness of the ITB Group Home Goal (LTG) overall ITB tightness has decreased and she is not experiencing the lateral ITB tenderness LTG Duration 8 weeks 3 Impairment Pain with walking down a incline or stairs Short Term Goal (STG) Maura is educated on a HEP for improved hip strength good progress STG Duration 4 weeks progressing 07/12/23 Strategy Consultant Goal (LTG) Maura is independent with a HEP and demonstrates improvement with hip strength This was going really well for Maura however she is no dealing with tendonitis type symptoms and is experiencing discomfort with ambulation up/ down stairs LTG Duration 8 weeks 2 Impairment hip pain ranging from 2-6/10 depending on activity as well as distal ITB pain at the knee Short Term Goal (STG) Maura is educated on a home program to improve hip ROM 09/29/23 Goal met STG Duration 5 weeks progressing 06/28/23 Group Home Goal (LTG) Maura presents with improved hip ROM into hip flexion and abduction 09/29/23 goal met LTG Duration 8 weeks progressing 06/28/23 1 Impairment Decreased hip ROM most significantly into flexion and ER, pt is unable to sit cross legged. Strategy Consultant Goal (LTG) Maura reports a overall reduction in pain of the left hip pain with active hip flexion only at this time, pain goes away after active hip flexion LTG Duration 8 weeks Assessment Summary Assessment Maura returns to PT today after not being seen since September 28. She is doing well overall but is experiencing iliopsoas discomfort with active hip flexion and going up/down stairs. She is feeling that it is iliopsoas tendonitis. A CT scan has been ordered to make sure that the tissue around the implant all looks good. With assessment today Maura is guarded and tight in the right adductors and psoas musculature especially at the distal attachment. She has a history of hysterectomy and she notes some increase in bladder irritation in the past month at night. There is quite a bit of fascial restrictions across the suprapubic fascia as well that is chronic in nature but may be contributing to the tightness she is feeling. Maura would benefit from continued PT focusing on fascial release and calming down the psoas attachments to help return to active hip flexion without discomfort. Physical Therapy Plan Frequency and Duration Frequency of Treatment 1x/Week Duration of treatment (weeks) 12 Plan of Care Start Date 11/24/23 Plan of Care End Date 03/01/24 Therapeutic Interventions Therapeutic Interventions Home Exercise Program,Manual Therapy,Self-Care/Home Management,Soft Tissue Mobilization,Therapeutic Exercises Modalities Cold Pack/Ice Massage Plan of Care Dates Plan of Care Start Date 11/24/23 Plan of Care End Date 03/01/24 Electronically Signed by: Norah Yu, PT 11/24/23 4746 If you are in agreement with this Plan of Care, please return a signed and dated copy. I have reviewed this Plan of Care and certify that the skilled therapy services above are required to meet the patient?s needs. Physician Signature Date Printed Name and Credentials Clinical Instructor Signature Printed Name and Credentials
--- NOTE | 2023-12-01 16:26 | PT.OTN ---
Current Diagnoses Pain in left hip (12/01/23) Stiffness of unspecified hip, not elsewhere classified (12/01/23) Muscle weakness (generalized) (12/01/23) Presence of left artificial hip joint (12/01/23) Physical Therapy Treatment Note PT-OP-A Visit Information Start: 05/31/23 11:25 Freq: Status: Active Protocol: Document 12/01/23 16:21 [facility] (Rec: 12/01/23 16:26 [facility] [id number]) Out-Patient Physical Therapy Visit Information Visit Information Visit Type Treatment Note Visit Start Time 15:20 Visit Stop Time 16:05 Visit Number 26 PT-OP-B Current Condition Start: 05/31/23 11:25 Freq: Status: Active Protocol: Document 05/31/23 13:05 [facility] (Rec: 05/31/23 13:48 [facility] [id number]) Current Condition History of Current Condition Onset Date 05/25/23 Current Complaints s/p left RONNY, decreased hip ROM, pain, decreased strength History of Current Condition May 24 anterior approach total hip replacement pt is using a fww with sitting down or standing up she can feel incisional pain that feels burning but after a minute after changing positions she wont feel it as strong. She rates it as a 6/ 10 zing with positional change Walking is a 3-4/10 but if she tries to take too big of a step she jay get pain She has been wearing thigh highs and has had mild swelling only she is using a fww and its primarily to not over do. She has 3 stairs to get in at her house with a railing and has been doing fine with these. She is 6 days s/p hip surgery today Treatment Goals Patient/Caregiver Goals Pt's goals are to improve hip ROM, decrease pain, increase strength and walking distance PT-OP-C Subjective Start: 05/31/23 11:25 Freq: Status: Active Protocol: Document 12/01/23 16:21 [facility] (Rec: 12/01/23 16:26 [facility] [id number]) OP-PT Subjective Patient Comments Patient Comments Maura notes she is still feeling the guarding and tightness in the adducotors and iliopsoas. She has hip irritation with active hip flexion activities PT-OP-F Manual Assessment Start: 05/31/23 11:25 Freq: Status: Active Protocol: Document 05/31/23 13:00 [facility] (Rec: 06/01/23 13:05 [facility] [id number]) Manual Assessments Soft Tissue Assessment Soft Tissue Mobility Assessment myofascial tightness of the left quad and anterior hip, pt still has her bandage on for 2 weeks so fascial tissue will need further assessment once bandage is removed PT-OP-G Mobility & Gait Start: 05/31/23 11:25 Freq: Status: Active Protocol: Document 05/31/23 13:00 [facility] (Rec: 06/01/23 13:05 [facility] [id number]) OP Mobility Evaluation Bed Mobility Rolling ind Supine to and from Sit ind Transfers Sit to Stand IND and uses FWW Bed to Chair Transfers IND Car Transfers IND Floor Transfers not attempted OP Gait Assessment Gait Gait Assistance Required: Standby Assistance Distance (Feet) 50 Able to Maintain Weight Bearing Status Yes During Gait Assistive Devices Assistive Device Front Wheeled Walker Gait Deviations General Gait Pattern Decreased Stride Length,Step- to Gait Factors Limiting Gait Function Factors Limiting Gait Function Decreased Activity Tolerance, Decreased Strength,Limited Range of Motion,Pain PT-OP-K Range of Motion Start: 05/31/23 11:25 Freq: Status: Active Protocol: Document 05/31/23 13:00 [facility] (Rec: 06/01/23 13:05 [facility] [id number]) Hip Goniometric Range of Motion Hip Left Hip ROM WFL No Testing Position Supine Flexion w/Knee Flexed 90 Abduction 5 Comments pt has anterior hip precautions of no hip extension or ER. She has pain with hip abduction and knee flexion greater than 90 degrees. It is difficult for her to extend her hip flat onto the table and she needs a towel roll under her left knee especially at first Right Hip ROM WFL Yes Testing Position Supine Hip ROM Limitations Hip ROM Limitations Soft Tissue Tightness,Pain, Swelling Comments ANTERIOR HIP PRECAUTIONS PT-OP-M Strength Start: 05/31/23 11:25 Freq: Status: Active Protocol: Document 05/31/23 13:00 [facility] (Rec: 06/01/23 13:05 [facility] [id number]) Hip Strength Hip Manual Muscle Testing Left Comments not formaly tested due to s/p RONNY 6 days ago but decreased AROM of the left hip PT-OP-Q Treatments Start: 05/31/23 11:25 Freq: Status: Active Protocol: Document 12/01/23 16:21 [facility] (Rec: 12/01/23 16:26 [facility] [id number]) Manual Therapy Treatment Soft Tissue Mobilization scar tissue mobilization over the abdominal scar and the iliopsoas musculature Body Location left hip Mobilization Type Myofascial Release gentle adductor release on the left Body Location L adductor, distal quad Mobilization Type Rolling,Sustained Pressure Intensity/Depth Moderate Body Position Supine, Hooklying Comments -circular strokes distal to proximal -pt able to lay flat today without a towel under knee PT-OP-T Assessment and Plan Start: 05/31/23 11:25 Freq: Status: Active Protocol: Document 12/01/23 16:21 [facility] (Rec: 12/01/23 16:26 [facility] [id number]) Physical Therapy Assessment Assessment Summary Assessment I worked again into the the iliopsoas and adductors today and Alta is very guarded and tight at the adductor attachment. I encouraged her to use her cupping and gusha for self release at home. Physical Therapy Plan Frequency and Duration Frequency of Treatment 1x/Week Duration of treatment (weeks) 12 Plan of Care Start Date 11/24/23 Plan of Care End Date 03/01/24 Next Visit Focus/Plan Next Note Type Treatment Note Next Visit Plan continue with fascial work to release the guarding at the addcutors and iliopsoas to calm down the hip with active hip flexion
--- NOTE | 2023-12-08 16:16 | PT.OTN ---
Current Diagnoses Pain in left hip (12/08/23) Stiffness of unspecified hip, not elsewhere classified (12/08/23) Muscle weakness (generalized) (12/08/23) Presence of left artificial hip joint (12/08/23) Physical Therapy Treatment Note PT-OP-A Visit Information Start: 05/31/23 11:25 Freq: Status: Active Protocol: Document 12/08/23 15:21 [facility] (Rec: 12/08/23 16:16 [facility] [id number]) Out-Patient Physical Therapy Visit Information Visit Information Visit Type Treatment Note Visit Start Time 15:15 Visit Stop Time 16:00 Visit Number 27 PT-OP-B Current Condition Start: 05/31/23 11:25 Freq: Status: Active Protocol: Document 05/31/23 13:05 [facility] (Rec: 05/31/23 13:48 [facility] [id number]) Current Condition History of Current Condition Onset Date 05/25/23 Current Complaints s/p left RONNY, decreased hip ROM, pain, decreased strength History of Current Condition May 24 anterior approach total hip replacement pt is using a fww with sitting down or standing up she can feel incisional pain that feels burning but after a minute after changing positions she wont feel it as strong. She rates it as a 6/ 10 zing with positional change Walking is a 3-4/10 but if she tries to take too big of a step she jay get pain She has been wearing thigh highs and has had mild swelling only she is using a fww and its primarily to not over do. She has 3 stairs to get in at her house with a railing and has been doing fine with these. She is 6 days s/p hip surgery today Treatment Goals Patient/Caregiver Goals Pt's goals are to improve hip ROM, decrease pain, increase strength and walking distance PT-OP-C Subjective Start: 05/31/23 11:25 Freq: Status: Active Protocol: Document 12/08/23 15:21 [facility] (Rec: 12/08/23 16:16 [facility] [id number]) OP-PT Subjective Patient Comments Patient Comments pt notes she has been trying to sleep on her side too and has tried a bolster under her left knee for night time. THe only thing that hurts is the muscle contraction to lift the hip into flexion once its there it does not hurt. 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 She sits there for 2-3 hours and she wonders if this has contributed to her symptoms. PT-OP-F Manual Assessment Start: 05/31/23 11:25 Freq: Status: Active Protocol: Document 05/31/23 13:00 [facility] (Rec: 06/01/23 13:05 [facility] [id number]) Manual Assessments Soft Tissue Assessment Soft Tissue Mobility Assessment myofascial tightness of the left quad and anterior hip, pt still has her bandage on for 2 weeks so fascial tissue will need further assessment once bandage is removed PT-OP-G Mobility & Gait Start: 05/31/23 11:25 Freq: Status: Active Protocol: Document 05/31/23 13:00 [facility] (Rec: 06/01/23 13:05 [facility] [id number]) OP Mobility Evaluation Bed Mobility Rolling ind Supine to and from Sit ind Transfers Sit to Stand IND and uses FWW Bed to Chair Transfers IND Car Transfers IND Floor Transfers not attempted OP Gait Assessment Gait Gait Assistance Required: Standby Assistance Distance (Feet) 50 Able to Maintain Weight Bearing Status Yes During Gait Assistive Devices Assistive Device Front Wheeled Walker Gait Deviations General Gait Pattern Decreased Stride Length,Step- to Gait Factors Limiting Gait Function Factors Limiting Gait Function Decreased Activity Tolerance, Decreased Strength,Limited Range of Motion,Pain PT-OP-K Range of Motion Start: 05/31/23 11:25 Freq: Status: Active Protocol: Document 05/31/23 13:00 [facility] (Rec: 06/01/23 13:05 [facility] [id number]) Hip Goniometric Range of Motion Hip Left Hip ROM WFL No Testing Position Supine Flexion w/Knee Flexed 90 Abduction 5 Comments pt has anterior hip precautions of no hip extension or ER. She has pain with hip abduction and knee flexion greater than 90 degrees. It is difficult for her to extend her hip flat onto the table and she needs a towel roll under her left knee especially at first Right Hip ROM WFL Yes Testing Position Supine Hip ROM Limitations Hip ROM Limitations Soft Tissue Tightness,Pain, Swelling Comments ANTERIOR HIP PRECAUTIONS PT-OP-M Strength Start: 05/31/23 11:25 Freq: Status: Active Protocol: Document 05/31/23 13:00 [facility] (Rec: 06/01/23 13:05 [facility] [id number]) Hip Strength Hip Manual Muscle Testing Left Comments not formaly tested due to s/p RONNY 6 days ago but decreased AROM of the left hip PT-OP-Q Treatments Start: 05/31/23 11:25 Freq: Status: Active Protocol: Document 12/08/23 15:21 [facility] (Rec: 12/08/23 16:16 [facility] [id number]) Manual Therapy Treatment Soft Tissue Mobilization scar tissue mobilization over the abdominal scar and the iliopsoas musculature Body Location left hip Mobilization Type Myofascial Release gentle adductor release on the left Body Location L adductor, distal quad Mobilization Type Myofascial Release,Rolling, Sustained Pressure Intensity/Depth Moderate Body Position Supine, Hooklying PT-OP-T Assessment and Plan Start: 05/31/23 11:25 Freq: Status: Active Protocol: Document 12/08/23 15:21 [facility] (Rec: 12/08/23 16:16 [facility] [id number]) Physical Therapy Assessment Assessment Summary Assessment I worked again into the the iliopsoas and adductors today and guarding was not as tight at the adductor attachment. This has improved. I also worked over the abdominal scar as Maura notes continued tightness in this area. This too felt a little better than last visit. It is possible that by sitting with left hip turned in to the right for 2-3 hours at a time that maybe this contributed to her pain with active hip flexion. 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 Physical Therapy Plan Frequency and Duration Frequency of Treatment 1x/Week Duration of treatment (weeks) 12 Plan of Care Start Date 11/24/23 Plan of Care End Date 03/01/24
--- NOTE | 2023-12-16 17:01 | PT.OTN ---
Current Diagnoses Pain in left hip (12/16/23) Stiffness of unspecified hip, not elsewhere classified (12/16/23) Muscle weakness (generalized) (12/16/23) Presence of left artificial hip joint (12/16/23) Physical Therapy Treatment Note PT-OP-A Visit Information Start: 05/31/23 11:25 Freq: Status: Active Protocol: Document 12/16/23 13:42 TS (Rec: 12/16/23 17:01 TS [id number]) Out-Patient Physical Therapy Visit Information Visit Information Visit Type Treatment Note Visit Start Time 13:48 Visit Stop Time 14:30 Visit Number 28 PT-OP-B Current Condition Start: 05/31/23 11:25 Freq: Status: Active Protocol: Document 05/31/23 13:05 [facility] (Rec: 05/31/23 13:48 [facility] [id number]) Current Condition History of Current Condition Onset Date 05/25/23 Current Complaints s/p left RONNY, decreased hip ROM, pain, decreased strength History of Current Condition May 24 anterior approach total hip replacement pt is using a fww with sitting down or standing up she can feel incisional pain that feels burning but after a minute after changing positions she wont feel it as strong. She rates it as a 6/ 10 zing with positional change Walking is a 3-4/10 but if she tries to take too big of a step she jay get pain She has been wearing thigh highs and has had mild swelling only she is using a fww and its primarily to not over do. She has 3 stairs to get in at her house with a railing and has been doing fine with these. She is 6 days s/p hip surgery today Treatment Goals Patient/Caregiver Goals Pt's goals are to improve hip ROM, decrease pain, increase strength and walking distance PT-OP-C Subjective Start: 05/31/23 11:25 Freq: Status: Active Protocol: Document 12/16/23 13:42 TS (Rec: 12/16/23 17:01 TS [id number]) OP-PT Subjective Patient Comments Patient Comments Pt reports she had a CT scan last week. CT scan showed no damage to hardware or hip. The cup of the acetabulum is sticking out slightly but the surgeon stated it should not be causing any problems. PT-OP-F Manual Assessment Start: 05/31/23 11:25 Freq: Status: Active Protocol: Document 05/31/23 13:00 [facility] (Rec: 06/01/23 13:05 [facility] [id number]) Manual Assessments Soft Tissue Assessment Soft Tissue Mobility Assessment myofascial tightness of the left quad and anterior hip, pt still has her bandage on for 2 weeks so fascial tissue will need further assessment once bandage is removed PT-OP-G Mobility & Gait Start: 05/31/23 11:25 Freq: Status: Active Protocol: Document 05/31/23 13:00 [facility] (Rec: 06/01/23 13:05 [facility] [id number]) OP Mobility Evaluation Bed Mobility Rolling ind Supine to and from Sit ind Transfers Sit to Stand IND and uses FWW Bed to Chair Transfers IND Car Transfers IND Floor Transfers not attempted OP Gait Assessment Gait Gait Assistance Required: Standby Assistance Distance (Feet) 50 Able to Maintain Weight Bearing Status Yes During Gait Assistive Devices Assistive Device Front Wheeled Walker Gait Deviations General Gait Pattern Decreased Stride Length,Step- to Gait Factors Limiting Gait Function Factors Limiting Gait Function Decreased Activity Tolerance, Decreased Strength,Limited Range of Motion,Pain PT-OP-K Range of Motion Start: 05/31/23 11:25 Freq: Status: Active Protocol: Document 05/31/23 13:00 [facility] (Rec: 06/01/23 13:05 [facility] [id number]) Hip Goniometric Range of Motion Hip Left Hip ROM WFL No Testing Position Supine Flexion w/Knee Flexed 90 Abduction 5 Comments pt has anterior hip precautions of no hip extension or ER. She has pain with hip abduction and knee flexion greater than 90 degrees. It is difficult for her to extend her hip flat onto the table and she needs a towel roll under her left knee especially at first Right Hip ROM WFL Yes Testing Position Supine Hip ROM Limitations Hip ROM Limitations Soft Tissue Tightness,Pain, Swelling Comments ANTERIOR HIP PRECAUTIONS PT-OP-M Strength Start: 05/31/23 11:25 Freq: Status: Active Protocol: Document 05/31/23 13:00 [facility] (Rec: 06/01/23 13:05 [facility] [id number]) Hip Strength Hip Manual Muscle Testing Left Comments not formaly tested due to s/p RONNY 6 days ago but decreased AROM of the left hip PT-OP-Q Treatments Start: 05/31/23 11:25 Freq: Status: Active Protocol: Document 12/16/23 13:42 TS (Rec: 12/16/23 17:01 TS [id number]) Manual Therapy Treatment Soft Tissue Mobilization scar tissue mobilization over the abdominal scar and the iliopsoas musculature Body Location left hip Mobilization Type Myofascial Release gentle adductor release on the left Body Location L adductor, distal quad Mobilization Type Myofascial Release,Rolling, Sustained Pressure Intensity/Depth Moderate Body Position Supine, Hooklying PT-OP-T Assessment and Plan Start: 05/31/23 11:25 Freq: Status: Active Protocol: Document 12/16/23 13:42 TS (Rec: 12/16/23 17:01 TS [id number]) Physical Therapy Assessment Goals 4 Impairment Myofascial tightness of the ITB Intensive Care Unit Nurse Goal (LTG) overall ITB tightness has decreased and she is not experiencing the lateral ITB tenderness LTG Duration 8 weeks 3 Impairment Pain with walking down a incline or stairs Short Term Goal (STG) Maura is educated on a HEP for improved hip strength good progress STG Duration 4 weeks progressing 07/12/23 Custodial Goal (LTG) Maura is independent with a HEP and demonstrates improvement with hip strength This was going really well for Maura however she is no dealing with tendonitis type symptoms and is experiencing discomfort with ambulation up/ down stairs LTG Duration 8 weeks 2 Impairment hip pain ranging from 2-6/10 depending on activity as well as distal ITB pain at the knee Short Term Goal (STG) Maura is educated on a home program to improve hip ROM 09/29/23 Goal met STG Duration 5 weeks progressing 06/28/23 Intensive Care Unit Nurse Goal (LTG) Maura presents with improved hip ROM into hip flexion and abduction 09/29/23 goal met LTG Duration 8 weeks progressing 06/28/23 1 Impairment Decreased hip ROM most significantly into flexion and ER, pt is unable to sit cross legged. Custodial Goal (LTG) Maura reports a overall reduction in pain of the left hip pain with active hip flexion only at this time, pain goes away after active hip flexion LTG Duration 8 weeks Assessment Summary Assessment Continued to work into iliopsaos and adductors. Pt reports feeling some improvement in stiffness but continues to have some sharp pain with hip flexion. Physical Therapy Plan Next Visit Focus/Plan Next Note Type Treatment Note Next Visit Plan continue with fascial work to release the guarding at the addcutors and iliopsoas to calm down the hip with active hip flexion
--- NOTE | 2023-12-20 14:47 | PT.OTN ---
Current Diagnoses Pain in left hip (12/20/23) Stiffness of unspecified hip, not elsewhere classified (12/20/23) Muscle weakness (generalized) (12/20/23) Presence of left artificial hip joint (12/20/23) Physical Therapy Treatment Note PT-OP-A Visit Information Start: 05/31/23 11:25 Freq: Status: Active Protocol: Document 12/20/23 14:03 [facility] (Rec: 12/20/23 14:45 [facility] [id number]) Out-Patient Physical Therapy Visit Information Visit Information Visit Type Treatment Note Visit Start Time 13:08 Visit Stop Time 13:55 Visit Number 29 Number of TABLE TENDER Visits 1 PT-OP-B Current Condition Start: 05/31/23 11:25 Freq: Status: Active Protocol: Document 05/31/23 13:05 [facility] (Rec: 05/31/23 13:48 [facility] [id number]) Current Condition History of Current Condition Onset Date 05/25/23 Current Complaints s/p left RONNY, decreased hip ROM, pain, decreased strength History of Current Condition May 24 anterior approach total hip replacement pt is using a fww with sitting down or standing up she can feel incisional pain that feels burning but after a minute after changing positions she wont feel it as strong. She rates it as a 6/ 10 zing with positional change Walking is a 3-4/10 but if she tries to take too big of a step she jay get pain She has been wearing thigh highs and has had mild swelling only she is using a fww and its primarily to not over do. She has 3 stairs to get in at her house with a railing and has been doing fine with these. She is 6 days s/p hip surgery today Treatment Goals Patient/Caregiver Goals Pt's goals are to improve hip ROM, decrease pain, increase strength and walking distance PT-OP-C Subjective Start: 05/31/23 11:25 Freq: Status: Active Protocol: Document 12/20/23 14:03 NBM (Rec: 12/20/23 14:45 [facility] [id number]) OP-PT Subjective Patient Comments Patient Comments Maura reports no L hip pain currently but some stiffness, and L hip pain increases consistently to 6/10 while demonstrating lifting leg in shower, then returns to baseline a couple of minutes after returning to standing. She reports similar pain with getting in/out of car, which didn't used to be the case. Her Dr advised the L hip pain is likely hip flexor tendonitis. She felt good after last PT and would like to focus on her HEP. The only thing that hurts now is really lifting her L leg. PT-OP-F Manual Assessment Start: 05/31/23 11:25 Freq: Status: Active Protocol: Document 05/31/23 13:00 [facility] (Rec: 06/01/23 13:05 [facility] [id number]) Manual Assessments Soft Tissue Assessment Soft Tissue Mobility Assessment myofascial tightness of the left quad and anterior hip, pt still has her bandage on for 2 weeks so fascial tissue will need further assessment once bandage is removed PT-OP-G Mobility & Gait Start: 05/31/23 11:25 Freq: Status: Active Protocol: Document 05/31/23 13:00 [facility] (Rec: 06/01/23 13:05 [facility] [id number]) OP Mobility Evaluation Bed Mobility Rolling ind Supine to and from Sit ind Transfers Sit to Stand IND and uses FWW Bed to Chair Transfers IND Car Transfers IND Floor Transfers not attempted OP Gait Assessment Gait Gait Assistance Required: Standby Assistance Distance (Feet) 50 Able to Maintain Weight Bearing Status Yes During Gait Assistive Devices Assistive Device Front Wheeled Walker Gait Deviations General Gait Pattern Decreased Stride Length,Step- to Gait Factors Limiting Gait Function Factors Limiting Gait Function Decreased Activity Tolerance, Decreased Strength,Limited Range of Motion,Pain PT-OP-K Range of Motion Start: 05/31/23 11:25 Freq: Status: Active Protocol: Document 05/31/23 13:00 [facility] (Rec: 06/01/23 13:05 [facility] [id number]) Hip Goniometric Range of Motion Hip Left Hip ROM WFL No Testing Position Supine Flexion w/Knee Flexed 90 Abduction 5 Comments pt has anterior hip precautions of no hip extension or ER. She has pain with hip abduction and knee flexion greater than 90 degrees. It is difficult for her to extend her hip flat onto the table and she needs a towel roll under her left knee especially at first Right Hip ROM WFL Yes Testing Position Supine Hip ROM Limitations Hip ROM Limitations Soft Tissue Tightness,Pain, Swelling Comments ANTERIOR HIP PRECAUTIONS PT-OP-M Strength Start: 05/31/23 11:25 Freq: Status: Active Protocol: Document 05/31/23 13:00 [facility] (Rec: 06/01/23 13:05 [facility] [id number]) Hip Strength Hip Manual Muscle Testing Left Comments not formaly tested due to s/p RONNY 6 days ago but decreased AROM of the left hip PT-OP-Q Treatments Start: 05/31/23 11:25 Freq: Status: Active Protocol: Document 12/20/23 14:03 [facility] (Rec: 12/20/23 14:45 [facility] [id number]) Therapeutic Exercises Supine Exercises bridge Supine Exercise Name HEP: segmental bridge w/ breath 1.DL 2. SL Side bilateral Equipment Used yoga mat Reps/Minutes 1. x10 ea 2. x10 ea Comments painfree; vc for gluteal activation, breathwork SLR Supine Exercise Name Pt demos personal HEP SLR from h/l and supine Side bilateral Equipment Used yoga mat Reps/Minutes x10 ea Comments Pt advised to hold due to L hip pain Prone Exercises ulises pose Prone Exercise Name fwd, lat Equipment Used yoga mat Standing Exercises standing adducotor stretdh Standing Exercise Name reviewed for HEP Equipment Used yoga mat lateral step ups Standing Exercise Name verbally reviewed for HEP hip abd Standing Exercise Name reviewed for HEP Other Exercises YOGA review within precautions Other Exercise Name ulises pose, puppy dog, sun salutation, 1/2 kneel, mini lunge Comments cued for feet closer and neutral feet in lunge; glute act in 1/2 kneel Self-Care/Home Management Treatment Education Patient Education Body Mechanics,Home Exercise Program,Pain Management Other Education Pt is educated on open- vs closed-chain hip flexor motion and modifications for decreasing L hip pain with open-chain ADLs like lifting leg in shower or to get in/out of car - pain decreases with flexing trunk in closed chain prior to initiating open-chain leg lift. -HEP is reviewed and she is given HO for closed-chain movements to perform: Standing hip abduction, lateral step ups, hip add stretch; prone 3- way child's pose (no Happy Baby stretch); Hooklying DL>SL bridging (no SLR). PT-OP-T Assessment and Plan Start: 05/31/23 11:25 Freq: Status: Active Protocol: Document 12/20/23 14:03 [facility] (Rec: 12/20/23 14:45 NB [id number]) Physical Therapy Assessment Goals 4 Impairment Myofascial tightness of the ITB Nursing Home Goal (LTG) overall ITB tightness has decreased and she is not experiencing the lateral ITB tenderness LTG Duration 8 weeks 3 Impairment Pain with walking down a incline or stairs Short Term Goal (STG) Maura is educated on a HEP for improved hip strength good progress STG Duration 4 weeks progressing 07/12/23 Telephone Directory Distributor Driver Goal (LTG) Maura is independent with a HEP and demonstrates improvement with hip strength This was going really well for Maura however she is no dealing with tendonitis type symptoms and is experiencing discomfort with ambulation up/ down stairs LTG Duration 8 weeks 2 Impairment hip pain ranging from 2-6/10 depending on activity as well as distal ITB pain at the knee Short Term Goal (STG) Maura is educated on a home program to improve hip ROM 09/29/23 Goal met STG Duration 5 weeks progressing 06/28/23 Telephone Directory Distributor Driver Goal (LTG) Maura presents with improved hip ROM into hip flexion and abduction 09/29/23 goal met LTG Duration 8 weeks progressing 06/28/23 1 Impairment Decreased hip ROM most significantly into flexion and ER, pt is unable to sit cross legged. Telephone Directory Distributor Driver Goal (LTG) Maura reports a overall reduction in pain of the left hip pain with active hip flexion only at this time, pain goes away after active hip flexion 12/20/23: Pt reports she can sit cross-legged. LTG Duration 8 weeks Assessment Summary Assessment Treatment focus on HEP and ADL review to minimize activities which aggravate L hip flexor m. pain. Pt consistently reports significant increase in L hip pain with open-chain hip flexor movements such as lifting leg in shower to place on step which causes 6/10 pain until foot is planted; L hip pain improves at least two levels to 4/10 max with cueing to flex trunk in closed -chain before lifting L leg to shorten iliopsoas prior to initiating open-chain. She is educated on closed-chain vs. open chain movement and encouraged to avoid open-chain hip flexor strengthening to allow iliopsoas tendonitis dx' d by surgeon last week to improve. She is also educated on relationship between range of motion and strength, and that at this time her L hip flexors are not strong enough to consistently perform open- chain movements such as steep stairs on boat or straight leg raise in supine or hooklying; she is discouraged from testing open-chain hip flexor ex's over the next few weeks to avoid reaggravation and expresses understanding. HO provided to pt for current HEP with emphasis on closed-chain hip flexor movements with emphasis on gluteal strengthening. Physical Therapy Plan Frequency and Duration Frequency of Treatment 1x/Week Duration of treatment (weeks) 12 Plan of Care Start Date 11/24/23 Plan of Care End Date 03/01/24 Therapeutic Interventions Therapeutic Interventions Home Exercise Program,Manual Therapy,Self-Care/Home Management,Soft Tissue Mobilization,Therapeutic Exercises Modalities Cold Pack/Ice Massage Next Visit Focus/Plan Next Note Type Treatment Note Next Visit Plan Assess L hip flexor pain w/ modifications to avoid open- chain movements or perform in smaller ROM. POC: continue with fascial work to release the guarding at the addcutors and iliopsoas to calm down the hip with active hip flexion
--- NOTE | 2023-12-27 18:14 | PT.OTN ---
Current Diagnoses Pain in left hip (12/27/23) Stiffness of unspecified hip, not elsewhere classified (12/27/23) Muscle weakness (generalized) (12/27/23) Presence of left artificial hip joint (12/27/23) Physical Therapy Treatment Note PT-OP-A Visit Information Start: 05/31/23 11:25 Freq: Status: Active Protocol: Document 12/27/23 14:40 [facility] (Rec: 12/27/23 18:14 [facility] [id number]) Out-Patient Physical Therapy Visit Information Visit Information Visit Type Treatment Note Visit Start Time 14:40 Visit Stop Time 15:22 Visit Number 30 Number of DEPUTY SHERIFF GENERALIST/BAILIFF Visits 2 Evaluation Information Evaluation Date 05/31/23 PT-OP-B Current Condition Start: 05/31/23 11:25 Freq: Status: Active Protocol: Document 05/31/23 13:05 [facility] (Rec: 05/31/23 13:48 [facility] [id number]) Current Condition History of Current Condition Onset Date 05/25/23 Current Complaints s/p left RONNY, decreased hip ROM, pain, decreased strength History of Current Condition May 24 anterior approach total hip replacement pt is using a fww with sitting down or standing up she can feel incisional pain that feels burning but after a minute after changing positions she wont feel it as strong. She rates it as a 6/ 10 zing with positional change Walking is a 3-4/10 but if she tries to take too big of a step she jay get pain She has been wearing thigh highs and has had mild swelling only she is using a fww and its primarily to not over do. She has 3 stairs to get in at her house with a railing and has been doing fine with these. She is 6 days s/p hip surgery today Treatment Goals Patient/Caregiver Goals Pt's goals are to improve hip ROM, decrease pain, increase strength and walking distance PT-OP-C Subjective Start: 05/31/23 11:25 Freq: Status: Active Protocol: Document 12/27/23 14:40 NBM (Rec: 12/27/23 18:14 NBM [id number]) OP-PT Subjective Patient Comments Patient Comments Maura reports the closed chain thing is a revolution and she brings a list of movements. She notices she's sleeping more and has lost weight which she believes indicates her healing is ongoing and her metabolism is up and working. She's been using her L hand to help lift her L leg for getting into car and out, and it's a bucket seat so she can' t swing both legs in/out together. She's going up two steps into house sideways to enter home which has helped, but R knee seems to be getting more sore with compensations. She's cupping which helps too , longitudinal unless there's a tight knot which she goes across for; she sits with legs out straight because she can' t reach it on her back. I really feel that, unless it's something irritating from the implant, that it's the scar tissue. She has two stressless chairs which ortho said is okay to use. No pain or else underlying ache unless flexing her hip, or pressing on outside of thigh since surgery which hurts with pressing. incision doesn't hurt at all. PT-OP-F Manual Assessment Start: 05/31/23 11:25 Freq: Status: Active Protocol: Document 05/31/23 13:00 [facility] (Rec: 06/01/23 13:05 [facility] [id number]) Manual Assessments Soft Tissue Assessment Soft Tissue Mobility Assessment myofascial tightness of the left quad and anterior hip, pt still has her bandage on for 2 weeks so fascial tissue will need further assessment once bandage is removed PT-OP-G Mobility & Gait Start: 05/31/23 11:25 Freq: Status: Active Protocol: Document 05/31/23 13:00 [facility] (Rec: 06/01/23 13:05 [facility] [id number]) OP Mobility Evaluation Bed Mobility Rolling ind Supine to and from Sit ind Transfers Sit to Stand IND and uses FWW Bed to Chair Transfers IND Car Transfers IND Floor Transfers not attempted OP Gait Assessment Gait Gait Assistance Required: Standby Assistance Distance (Feet) 50 Able to Maintain Weight Bearing Status Yes During Gait Assistive Devices Assistive Device Front Wheeled Walker Gait Deviations General Gait Pattern Decreased Stride Length,Step- to Gait Factors Limiting Gait Function Factors Limiting Gait Function Decreased Activity Tolerance, Decreased Strength,Limited Range of Motion,Pain PT-OP-K Range of Motion Start: 05/31/23 11:25 Freq: Status: Active Protocol: Document 05/31/23 13:00 [facility] (Rec: 06/01/23 13:05 [facility] [id number]) Hip Goniometric Range of Motion Hip Left Hip ROM WFL No Testing Position Supine Flexion w/Knee Flexed 90 Abduction 5 Comments pt has anterior hip precautions of no hip extension or ER. She has pain with hip abduction and knee flexion greater than 90 degrees. It is difficult for her to extend her hip flat onto the table and she needs a towel roll under her left knee especially at first Right Hip ROM WFL Yes Testing Position Supine Hip ROM Limitations Hip ROM Limitations Soft Tissue Tightness,Pain, Swelling Comments ANTERIOR HIP PRECAUTIONS PT-OP-M Strength Start: 05/31/23 11:25 Freq: Status: Active Protocol: Document 05/31/23 13:00 [facility] (Rec: 06/01/23 13:05 [facility] [id number]) Hip Strength Hip Manual Muscle Testing Left Comments not formaly tested due to s/p RONNY 6 days ago but decreased AROM of the left hip PT-OP-Q Treatments Start: 05/31/23 11:25 Freq: Status: Active Protocol: Document 12/27/23 14:40 [facility] (Rec: 12/27/23 18:14 NBM [id number]) Manual Therapy Treatment Consent Patient gave verbal consent for manual Yes treatment Soft Tissue Mobilization scar tissue mobilization over the abdominal scar and the iliopsoas musculature Body Location left hip Mobilization Type Sustained Pressure Intensity/Depth Deep Body Position Supine Comments iliopsoas release L hip Mobilization Type Cross-Friction,Instrument Assisted,Rolling,Strumming Body Position Supine Comments STM over TFL, ITB and quads to help reduce tightness and improve mobility cupping gentle adductor release on the left Body Location L adductor, distal quad Mobilization Type Instrument Assisted,Rolling, Sustained Pressure Intensity/Depth Moderate Body Position Supine Comments L hip neutral and ER. cupping Self-Care/Home Management Treatment Education Patient Education Body Mechanics,Home Exercise Program,Pain Management Other Education Pt is further educated on open - vs closed-chain hip flexor motion and modifications for decreasing L hip pain with open-chain ADLs w/ emphasis on avoiding use of upper extremity assist to maintain hip strength. PT-OP-T Assessment and Plan Start: 05/31/23 11:25 Freq: Status: Active Protocol: Document 12/27/23 14:40 [facility] (Rec: 12/27/23 18:14 [facility] [id number]) Physical Therapy Assessment Goals 4 Impairment Myofascial tightness of the ITB Mcc Goal (LTG) overall ITB tightness has decreased and she is not experiencing the lateral ITB tenderness LTG Duration 8 weeks 3 Impairment Pain with walking down a incline or stairs Short Term Goal (STG) Maura is educated on a HEP for improved hip strength good progress STG Duration 4 weeks progressing 07/12/23 Moisture Meter Reader Goal (LTG) Maura is independent with a HEP and demonstrates improvement with hip strength This was going really well for Maura however she is no dealing with tendonitis type symptoms and is experiencing discomfort with ambulation up/ down stairs LTG Duration 8 weeks 2 Impairment hip pain ranging from 2-6/10 depending on activity as well as distal ITB pain at the knee Short Term Goal (STG) Maura is educated on a home program to improve hip ROM 09/29/23 Goal met STG Duration 5 weeks progressing 06/28/23 Mcc Goal (LTG) Maura presents with improved hip ROM into hip flexion and abduction 09/29/23 goal met LTG Duration 8 weeks progressing 06/28/23 1 Impairment Decreased hip ROM most significantly into flexion and ER, pt is unable to sit cross legged. Mcc Goal (LTG) Maura reports a overall reduction in pain of the left hip pain with active hip flexion only at this time, pain goes away after active hip flexion 12/20/23: Pt reports she can sit cross-legged. LTG Duration 8 weeks Assessment Summary Assessment Treatment focus on education and manual therapy to L hip. Further edu provided to Maura for avoiding L hip flexion in open chain w/ ADLs with emphasis to avoid upper extremity assist to lift L lower extremity. Visual aids of quadruceps, ilacus, and psoas m. provided. Palpable tension to L TFL, ITB, and Rectus femoris m. improves with manual therapy. Pt reports some soreness following but no pain. Physical Therapy Plan Frequency and Duration Frequency of Treatment 1x/Week Duration of treatment (weeks) 12 Plan of Care Start Date 11/24/23 Plan of Care End Date 03/01/24 Therapeutic Interventions Therapeutic Interventions Home Exercise Program,Manual Therapy,Self-Care/Home Management,Soft Tissue Mobilization,Therapeutic Exercises Modalities Cold Pack/Ice Massage Next Visit Focus/Plan Next Note Type Treatment Note Next Visit Plan Assess L hip flexor pain w/ modifications to avoid open- chain movements or perform in smaller ROM. POC: continue with fascial work to release the guarding at the addcutors and iliopsoas to calm down the hip with active hip flexion
--- NOTE | 2024-01-12 17:14 | PT.OTN ---
Current Diagnoses Pain in left hip (01/12/24) Stiffness of unspecified hip, not elsewhere classified (01/12/24) Muscle weakness (generalized) (01/12/24) Presence of left artificial hip joint (01/12/24) Physical Therapy Treatment Note PT-OP-A Visit Information Start: 05/31/23 11:25 Freq: Status: Active Protocol: Document 01/12/24 13:03 [facility] (Rec: 01/12/24 13:21 [facility] [id number]) Out-Patient Physical Therapy Visit Information Visit Information Visit Type Treatment Note Visit Start Time 13:05 PT-OP-B Current Condition Start: 05/31/23 11:25 Freq: Status: Active Protocol: Document 05/31/23 13:05 [facility] (Rec: 05/31/23 13:48 [facility] [id number]) Current Condition History of Current Condition Onset Date 05/25/23 Current Complaints s/p left RONNY, decreased hip ROM, pain, decreased strength History of Current Condition May 24 anterior approach total hip replacement pt is using a fww with sitting down or standing up she can feel incisional pain that feels burning but after a minute after changing positions she wont feel it as strong. She rates it as a 6/ 10 zing with positional change Walking is a 3-4/10 but if she tries to take too big of a step she jay get pain She has been wearing thigh highs and has had mild swelling only she is using a fww and its primarily to not over do. She has 3 stairs to get in at her house with a railing and has been doing fine with these. She is 6 days s/p hip surgery today Treatment Goals Patient/Caregiver Goals Pt's goals are to improve hip ROM, decrease pain, increase strength and walking distance PT-OP-C Subjective Start: 05/31/23 11:25 Freq: Status: Active Protocol: Document 01/12/24 13:03 [facility] (Rec: 01/12/24 13:21 [facility] [id number]) OP-PT Subjective Patient Comments Patient Comments Maura has been trying to only do closed chain and has been trying hard not to test it out . SHe has a appt Feb 13 She feels the cupping is helping and has tried the muscle relaxants and she did feel a it helped for 4 days but then it stopped getting any better. THen she tried a vallaum and this really helped her get about 24 hours relief. PT-OP-F Manual Assessment Start: 05/31/23 11:25 Freq: Status: Active Protocol: Document 05/31/23 13:00 [facility] (Rec: 06/01/23 13:05 [facility] [id number]) Manual Assessments Soft Tissue Assessment Soft Tissue Mobility Assessment myofascial tightness of the left quad and anterior hip, pt still has her bandage on for 2 weeks so fascial tissue will need further assessment once bandage is removed PT-OP-G Mobility & Gait Start: 05/31/23 11:25 Freq: Status: Active Protocol: Document 05/31/23 13:00 [facility] (Rec: 06/01/23 13:05 [facility] [id number]) OP Mobility Evaluation Bed Mobility Rolling ind Supine to and from Sit ind Transfers Sit to Stand IND and uses FWW Bed to Chair Transfers IND Car Transfers IND Floor Transfers not attempted OP Gait Assessment Gait Gait Assistance Required: Standby Assistance Distance (Feet) 50 Able to Maintain Weight Bearing Status Yes During Gait Assistive Devices Assistive Device Front Wheeled Walker Gait Deviations General Gait Pattern Decreased Stride Length,Step- to Gait Factors Limiting Gait Function Factors Limiting Gait Function Decreased Activity Tolerance, Decreased Strength,Limited Range of Motion,Pain PT-OP-K Range of Motion Start: 05/31/23 11:25 Freq: Status: Active Protocol: Document 05/31/23 13:00 [facility] (Rec: 06/01/23 13:05 [facility] [id number]) Hip Goniometric Range of Motion Hip Left Hip ROM WFL No Testing Position Supine Flexion w/Knee Flexed 90 Abduction 5 Comments pt has anterior hip precautions of no hip extension or ER. She has pain with hip abduction and knee flexion greater than 90 degrees. It is difficult for her to extend her hip flat onto the table and she needs a towel roll under her left knee especially at first Right Hip ROM WFL Yes Testing Position Supine Hip ROM Limitations Hip ROM Limitations Soft Tissue Tightness,Pain, Swelling Comments ANTERIOR HIP PRECAUTIONS PT-OP-M Strength Start: 05/31/23 11:25 Freq: Status: Active Protocol: Document 05/31/23 13:00 [facility] (Rec: 06/01/23 13:05 [facility] [id number]) Hip Strength Hip Manual Muscle Testing Left Comments not formaly tested due to s/p RONNY 6 days ago but decreased AROM of the left hip PT-OP-Q Treatments Start: 05/31/23 11:25 Freq: Status: Active Protocol: Document 01/12/24 13:05 [facility] (Rec: 01/12/24 17:11 [facility] [id number]) Manual Therapy Treatment Soft Tissue Mobilization scar tissue mobilization over the abdominal scar and the iliopsoas musculature Body Location left hip Mobilization Type Sustained Pressure Intensity/Depth Deep Body Position Supine Comments iliopsoas release L hip Mobilization Type Cross-Friction,Instrument Assisted,Rolling,Strumming Body Position Supine Comments STM over anterior quad proximal attachments gentle adductor release on the left Body Location L adductor, distal quad Mobilization Type Instrument Assisted,Rolling, Sustained Pressure Intensity/Depth Moderate Body Position Supine Comments L hip neutral and ER. cupping PT-OP-T Assessment and Plan Start: 05/31/23 11:25 Freq: Status: Active Protocol: Document 01/12/24 13:03 [facility] (Rec: 01/12/24 13:21 [facility] [id number]) Physical Therapy Assessment Assessment Summary Assessment Continued education on healing after hip replacement. Maura is doing better with not testing out hip flexion especially in open chain. She may be a good candidate for trigger point release with Nancie and I did have her try and get a appt with her to try and release the anterior quad Physical Therapy Plan Frequency and Duration Frequency of Treatment 1x/Week Duration of treatment (weeks) 12 Plan of Care Start Date 11/24/23 Plan of Care End Date 03/01/24 Therapeutic Interventions Therapeutic Interventions Home Exercise Program,Manual Therapy,Self-Care/Home Management,Soft Tissue Mobilization,Therapeutic Exercises Modalities Cold Pack/Ice Massage Next Visit Focus/Plan Next Note Type Treatment Note Next Visit Plan Assess L hip flexor pain w/ modifications to avoid open- chain movements or perform in smaller ROM. POC: continue with fascial work to release the guarding at the addcutors and iliopsoas to calm down the hip with active hip flexion, trial of trigger point therapy
--- NOTE | 2024-01-16 15:18 | PT.OTN ---
Current Diagnoses Pain in left hip (01/16/24) Stiffness of unspecified hip, not elsewhere classified (01/16/24) Muscle weakness (generalized) (01/16/24) Presence of left artificial hip joint (01/16/24) Physical Therapy Treatment Note PT-OP-A Visit Information Start: 05/31/23 11:25 Freq: Status: Active Protocol: Document 01/16/24 14:28 [facility] (Rec: 01/16/24 15:54 [facility] [id number]) Out-Patient Physical Therapy Visit Information Visit Information Visit Type Treatment Note Visit Start Time 14:28 Visit Stop Time 15:18 Visit Number 32 (8 with PN) Number of STRATEGY EXECUTION CONSULTANT Visits 1 Evaluation Information Evaluation Date 05/31/23 Precautions Precautions 05/25/23: s/p Anterior L hip, precautions PT-OP-B Current Condition Start: 05/31/23 11:25 Freq: Status: Active Protocol: Document 05/31/23 13:05 [facility] (Rec: 05/31/23 13:48 [facility] [id number]) Current Condition History of Current Condition Onset Date 05/25/23 Current Complaints s/p left RONNY, decreased hip ROM, pain, decreased strength History of Current Condition May 24 anterior approach total hip replacement pt is using a fww with sitting down or standing up she can feel incisional pain that feels burning but after a minute after changing positions she wont feel it as strong. She rates it as a 6/ 10 zing with positional change Walking is a 3-4/10 but if she tries to take too big of a step she jay get pain She has been wearing thigh highs and has had mild swelling only she is using a fww and its primarily to not over do. She has 3 stairs to get in at her house with a railing and has been doing fine with these. She is 6 days s/p hip surgery today Treatment Goals Patient/Caregiver Goals Pt's goals are to improve hip ROM, decrease pain, increase strength and walking distance PT-OP-C Subjective Start: 05/31/23 11:25 Freq: Status: Active Protocol: Document 01/16/24 14:28 [facility] (Rec: 01/16/24 15:54 [facility] [id number]) OP-PT Subjective Patient Comments Patient Comments Pt reports felt better after last tx for good 3 days. Continuing close chain activities doing well with toning vs strengthening. Is using muscle relaxants for support when needed. She is able to walk 3-4 miles total steps walking each day including incline/declines and [place] earlier day with dog. Only doing cat/cow, stationary 1/2 kneeling activities and UE support to get up when needed. She can sit cross legged. PT-OP-F Manual Assessment Start: 05/31/23 11:25 Freq: Status: Active Protocol: Document 05/31/23 13:00 [facility] (Rec: 06/01/23 13:05 [facility] [id number]) Manual Assessments Soft Tissue Assessment Soft Tissue Mobility Assessment myofascial tightness of the left quad and anterior hip, pt still has her bandage on for 2 weeks so fascial tissue will need further assessment once bandage is removed PT-OP-G Mobility & Gait Start: 05/31/23 11:25 Freq: Status: Active Protocol: Document 05/31/23 13:00 [facility] (Rec: 06/01/23 13:05 [facility] [id number]) OP Mobility Evaluation Bed Mobility Rolling ind Supine to and from Sit ind Transfers Sit to Stand IND and uses FWW Bed to Chair Transfers IND Car Transfers IND Floor Transfers not attempted OP Gait Assessment Gait Gait Assistance Required: Standby Assistance Distance (Feet) 50 Able to Maintain Weight Bearing Status Yes During Gait Assistive Devices Assistive Device Front Wheeled Walker Gait Deviations General Gait Pattern Decreased Stride Length,Step- to Gait Factors Limiting Gait Function Factors Limiting Gait Function Decreased Activity Tolerance, Decreased Strength,Limited Range of Motion,Pain PT-OP-K Range of Motion Start: 05/31/23 11:25 Freq: Status: Active Protocol: Document 05/31/23 13:00 [facility] (Rec: 06/01/23 13:05 [facility] [id number]) Hip Goniometric Range of Motion Hip Left Hip ROM WFL No Testing Position Supine Flexion w/Knee Flexed 90 Abduction 5 Comments pt has anterior hip precautions of no hip extension or ER. She has pain with hip abduction and knee flexion greater than 90 degrees. It is difficult for her to extend her hip flat onto the table and she needs a towel roll under her left knee especially at first Right Hip ROM WFL Yes Testing Position Supine Hip ROM Limitations Hip ROM Limitations Soft Tissue Tightness,Pain, Swelling Comments ANTERIOR HIP PRECAUTIONS PT-OP-M Strength Start: 05/31/23 11:25 Freq: Status: Active Protocol: Document 05/31/23 13:00 [facility] (Rec: 06/01/23 13:05 [facility] [id number]) Hip Strength Hip Manual Muscle Testing Left Comments not formaly tested due to s/p RONNY 6 days ago but decreased AROM of the left hip PT-OP-Q Treatments Start: 05/31/23 11:25 Freq: Status: Active Protocol: Document 01/16/24 14:28 [facility] (Rec: 01/16/24 15:54 [facility] [id number]) Therapeutic Exercises Other Exercises Laura sitting Other Exercise Name Tolerating again without pain/ tension short period time Reps/Minutes 10 SH Comments upsupported in PT, reports supported at back able sit 3-4 min YOGA review within precautions Other Exercise Name ulises pose /c & s SB, cat cow , up dog conor, down dog, plank, modified cobra Resistance Also: Modified plank 1 knee down, Lateral plank Reps/Minutes 30 SH Comments cued for feet closer and neutral feet in lunge; glute act in 1/2 kneel Manual Therapy Treatment Consent Patient gave verbal consent for manual Yes treatment Soft Tissue Mobilization scar tissue mobilization over the abdominal scar and the iliopsoas musculature Body Location left hip: prox RF, TFL, Mobilization Type Instrument Assisted,Myofascial Release,Sustained Pressure Intensity/Depth Deep Body Position Supine Comments 1. STM: prox RF, TFL with edge cup 2. iliopsoas release- aproximation attachments L 2-4 <> distal prox femur PT-OP-T Assessment and Plan Start: 05/31/23 11:25 Freq: Status: Active Protocol: Document 01/16/24 14:28 [facility] (Rec: 01/16/24 15:54 SP [id number]) Physical Therapy Assessment Goals 4 Impairment Myofascial tightness of the ITB Vegetable Loader Machine Operator Goal (LTG) overall ITB tightness has decreased and she is not experiencing the lateral ITB tenderness LTG Duration 8 weeks 3 Impairment Pain with walking down a incline or stairs Short Term Goal (STG) Maura is educated on a HEP for improved hip strength good progress STG Duration 4 weeks progressing 07/12/23 Vegetable Loader Machine Operator Goal (LTG) Maura is independent with a HEP and demonstrates improvement with hip strength This was going really well for Maura however she is no dealing with tendonitis type symptoms and is experiencing discomfort with ambulation up/ down stairs LTG Duration 8 weeks 2 Impairment hip pain ranging from 2-6/10 depending on activity as well as distal ITB pain at the knee Short Term Goal (STG) Maura is educated on a home program to improve hip ROM 09/29/23 Goal met STG Duration 5 weeks progressing 06/28/23 Vegetable Loader Machine Operator Goal (LTG) Marua presents with improved hip ROM into hip flexion and abduction 09/29/23 goal met LTG Duration 8 weeks progressing 06/28/23 1 Impairment Decreased hip ROM most significantly into flexion and ER, pt is unable to sit cross legged. Detention Goal (LTG) Maura reports a overall reduction in pain of the left hip pain with active hip flexion only at this time, pain goes away after active hip flexion 12/20/23: Pt reports she can sit cross-legged. LTG Duration 8 weeks Assessment Summary Assessment Pt improved myofascial softening prox RF and TFL and approximation L psoas release post manual glides. Cues for continued modification Yoga poses not put undo tension on L hip flexor for continued healing recovery. She demonstrates improved neutral close chain slight L hip flexion pain/tension free then knee extension for elevated stepping. Physical Therapy Plan Frequency and Duration Frequency of Treatment 1x/Week Duration of treatment (weeks) 12 Plan of Care Start Date 11/24/23 Plan of Care End Date 03/01/24 Therapeutic Interventions Therapeutic Interventions Home Exercise Program,Manual Therapy,Self-Care/Home Management,Soft Tissue Mobilization,Therapeutic Exercises Modalities Cold Pack/Ice Massage Next Visit Focus/Plan Next Note Type Treatment Note Next Visit Plan Update POC: 02/22/23. Assess L hip flexor pain w/ modifications to avoid open- chain movements or perform in smaller ROM. POC: continue with fascial work to release the guarding at the addcutors and iliopsoas to calm down the hip with active hip flexion, trial of trigger point therapy
--- NOTE | 2024-01-24 16:38 | PT.OTN ---
Current Diagnoses Pain in left hip (01/24/24) Stiffness of unspecified hip, not elsewhere classified (01/24/24) Muscle weakness (generalized) (01/24/24) Presence of left artificial hip joint (01/24/24) Physical Therapy Treatment Note PT-OP-A Visit Information Start: 05/31/23 11:25 Freq: Status: Active Protocol: Document 01/24/24 14:30 [facility] (Rec: 01/24/24 16:38 [facility] [id number]) Out-Patient Physical Therapy Visit Information Visit Information Visit Type Progress Note Visit Start Time 14:30 Visit Stop Time 15:15 Visit Number [id number] 10/17 with PN PT-OP-B Current Condition Start: 05/31/23 11:25 Freq: Status: Active Protocol: Document 05/31/23 13:05 [facility] (Rec: 05/31/23 13:48 [facility] [id number]) Current Condition History of Current Condition Onset Date 05/25/23 Current Complaints s/p left RONNY, decreased hip ROM, pain, decreased strength History of Current Condition May 24 anterior approach total hip replacement pt is using a fww with sitting down or standing up she can feel incisional pain that feels burning but after a minute after changing positions she wont feel it as strong. She rates it as a 6/ 10 zing with positional change Walking is a 3-4/10 but if she tries to take too big of a step she jay get pain She has been wearing thigh highs and has had mild swelling only she is using a fww and its primarily to not over do. She has 3 stairs to get in at her house with a railing and has been doing fine with these. She is 6 days s/p hip surgery today Treatment Goals Patient/Caregiver Goals Pt's goals are to improve hip ROM, decrease pain, increase strength and walking distance PT-OP-C Subjective Start: 05/31/23 11:25 Freq: Status: Active Protocol: Document 01/24/24 14:36 [facility] (Rec: 01/24/24 14:40 [facility] [id number]) OP-PT Subjective Patient Comments Patient Comments Maura feels that she is doing better and lifting her leg up to do regular steps is better, anything higher than that is still sore PT-OP-F Manual Assessment Start: 05/31/23 11:25 Freq: Status: Active Protocol: Document 05/31/23 13:00 [facility] (Rec: 06/01/23 13:05 [facility] [id number]) Manual Assessments Soft Tissue Assessment Soft Tissue Mobility Assessment myofascial tightness of the left quad and anterior hip, pt still has her bandage on for 2 weeks so fascial tissue will need further assessment once bandage is removed PT-OP-G Mobility & Gait Start: 05/31/23 11:25 Freq: Status: Active Protocol: Document 05/31/23 13:00 [facility] (Rec: 06/01/23 13:05 [facility] [id number]) OP Mobility Evaluation Bed Mobility Rolling ind Supine to and from Sit ind Transfers Sit to Stand IND and uses FWW Bed to Chair Transfers IND Car Transfers IND Floor Transfers not attempted OP Gait Assessment Gait Gait Assistance Required: Standby Assistance Distance (Feet) 50 Able to Maintain Weight Bearing Status Yes During Gait Assistive Devices Assistive Device Front Wheeled Walker Gait Deviations General Gait Pattern Decreased Stride Length,Step- to Gait Factors Limiting Gait Function Factors Limiting Gait Function Decreased Activity Tolerance, Decreased Strength,Limited Range of Motion,Pain PT-OP-K Range of Motion Start: 05/31/23 11:25 Freq: Status: Active Protocol: Document 05/31/23 13:00 [facility] (Rec: 06/01/23 13:05 [facility] [id number]) Hip Goniometric Range of Motion Hip Left Hip ROM WFL No Testing Position Supine Flexion w/Knee Flexed 90 Abduction 5 Comments pt has anterior hip precautions of no hip extension or ER. She has pain with hip abduction and knee flexion greater than 90 degrees. It is difficult for her to extend her hip flat onto the table and she needs a towel roll under her left knee especially at first Right Hip ROM WFL Yes Testing Position Supine Hip ROM Limitations Hip ROM Limitations Soft Tissue Tightness,Pain, Swelling Comments ANTERIOR HIP PRECAUTIONS PT-OP-M Strength Start: 05/31/23 11:25 Freq: Status: Active Protocol: Document 05/31/23 13:00 [facility] (Rec: 06/01/23 13:05 [facility] [id number]) Hip Strength Hip Manual Muscle Testing Left Comments not formaly tested due to s/p RONNY 6 days ago but decreased AROM of the left hip PT-OP-Q Treatments Start: 05/31/23 11:25 Freq: Status: Active Protocol: Document 01/24/24 14:30 [facility] (Rec: 01/24/24 16:38 [facility] [id number]) Manual Therapy Treatment Soft Tissue Mobilization scar tissue mobilization over the abdominal scar and the iliopsoas musculature Body Location left hip: prox RF, TFL, Mobilization Type Instrument Assisted,Myofascial Release,Sustained Pressure Intensity/Depth Deep Body Position Supine Comments 1. STM: prox RF, TFL with edge cup 2. iliopsoas release- aproximation attachments L 2-4 <> distal prox femur scar tissue massage Mobilization Type Instrument Assisted,Myofascial Release Intensity/Depth Moderate Body Position Supine Comments manual work on either side of the scar and proximal portion of the scar left anterior hip gentle adductor release on the left Body Location L adductor, distal quad Mobilization Type Instrument Assisted,Rolling, Sustained Pressure Intensity/Depth Moderate Body Position Supine Comments L hip neutral and ER. cupping PT-OP-T Assessment and Plan Start: 05/31/23 11:25 Freq: Status: Active Protocol: Document 01/24/24 14:30 [facility] (Rec: 01/24/24 16:38 [facility] [id number]) Physical Therapy Assessment Goals 4 Impairment Myofascial tightness of the ITB Snf Goal (LTG) overall ITB tightness has decreased and she is not experiencing the lateral ITB tenderness goal met LTG Duration 8 weeks 3 Impairment Pain with walking down a incline or stairs Short Term Goal (STG) Maura is educated on a HEP for improved hip strength good progress STG Duration 4 weeks progressing 07/12/23 Community Health Consultant Goal (LTG) Maura is independent with a HEP and demonstrates improvement with hip strength Stairs are starting to improve for Maura and she notes decreased pain with ascending stairs now LTG Duration 8 weeks 2 Impairment hip pain ranging from 2-6/10 depending on activity as well as distal ITB pain at the knee Short Term Goal (STG) Maura is educated on a home program to improve hip ROM 09/29/23 Goal met STG Duration 5 weeks progressing 06/28/23 Snf Goal (LTG) Maura presents with improved hip ROM into hip flexion and abduction 09/29/23 goal met LTG Duration 8 weeks progressing 06/28/23 1 Impairment Decreased hip ROM most significantly into flexion and ER, pt is unable to sit cross legged. Community Health Consultant Goal (LTG) Maura reports a overall reduction in pain of the left hip pain with active hip flexion only at this time, pain goes away after active hip flexion 12/20/23: Pt reports she can sit cross-legged. 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 Her chief complaint she returned with was pain with active hip flexion. We have worked with Maura to calm down the irritation and have asked her to avoid activities that irritate her hip. She is feeling better now and she has been able to return to stairs without increased pain. She still feels discomfort with standing hip flexion past 90 or more. This pain goes away as soon as she is past the movement. She would benefit from a trial of trigger point release next visit. Today I worked both the psoas distal attachments as well as adductors and scar tissue mobilization Physical Therapy Plan Frequency and Duration Frequency of Treatment 1x/Week Duration of treatment (weeks) 8 Plan of Care Start Date 01/24/24 Plan of Care End Date 03/20/24 Therapeutic Interventions Therapeutic Interventions Home Exercise Program,Manual Therapy,Self-Care/Home Management,Soft Tissue Mobilization,Therapeutic Exercises Modalities Cold Pack/Ice Massage Next Visit Focus/Plan Next Note Type Treatment Note Next Visit Plan assess left hip flexor pain, trial of trigger point release next visit adductors, iliopsoas, quads
--- NOTE | 2024-01-24 16:39 | PT.OPPOC ---
Physical, Occupational & Speech Therapy At [facility] Current Diagnoses Pain in left hip (01/24/24) Stiffness of unspecified hip, not elsewhere classified (01/24/24) Muscle weakness (generalized) (01/24/24) Presence of left artificial hip joint (01/24/24) Visit Care Team Role Provider Type MARI Barrera Family Provider Advanced Post Acute Care Nurse Practitioner Primary Care Provider Specialty: Family Practice Address: Email: [email or web address] Montrell Waite MD Attending Provider Non-Staff Referring Provider Specialty: Orthopedic Surgery Address: [facility] [address], [place], [address] Email: Plan Of Care PT-OP-B Current Condition Start: 05/31/23 11:25 Freq: Status: Active Protocol: Document 05/31/23 13:05 [facility] (Rec: 05/31/23 13:48 [facility] [id number]) Current Condition History of Current Condition Onset Date 05/25/23 Current Complaints s/p left RONNY, decreased hip ROM, pain, decreased strength History of Current Condition May 24 anterior approach total hip replacement pt is using a fww with sitting down or standing up she can feel incisional pain that feels burning but after a minute after changing positions she wont feel it as strong. She rates it as a 6/ 10 zing with positional change Walking is a 3-4/10 but if she tries to take too big of a step she jay get pain She has been wearing thigh highs and has had mild swelling only she is using a fww and its primarily to not over do. She has 3 stairs to get in at her house with a railing and has been doing fine with these. She is 6 days s/p hip surgery today Treatment Goals Patient/Caregiver Goals Pt's goals are to improve hip ROM, decrease pain, increase strength and walking distance PT-OP-T Assessment and Plan Start: 05/31/23 11:25 Freq: Status: Active Protocol: Document 01/24/24 14:30 [facility] (Rec: 01/24/24 16:38 [facility] [id number]) Physical Therapy Assessment Goals 4 Impairment Myofascial tightness of the ITB Nursing Home Goal (LTG) overall ITB tightness has decreased and she is not experiencing the lateral ITB tenderness goal met LTG Duration 8 weeks 3 Impairment Pain with walking down a incline or stairs Short Term Goal (STG) Maura is educated on a HEP for improved hip strength good progress STG Duration 4 weeks progressing 07/12/23 Marine Meteorologist Goal (LTG) Maura is independent with a HEP and demonstrates improvement with hip strength Stairs are starting to improve for Maura and she notes decreased pain with ascending stairs now LTG Duration 8 weeks 2 Impairment hip pain ranging from 2-6/10 depending on activity as well as distal ITB pain at the knee Short Term Goal (STG) Maura is educated on a home program to improve hip ROM 09/29/23 Goal met STG Duration 5 weeks progressing 06/28/23 Marine Meteorologist Goal (LTG) Maura presents with improved hip ROM into hip flexion and abduction 09/29/23 goal met LTG Duration 8 weeks progressing 06/28/23 1 Impairment Decreased hip ROM most significantly into flexion and ER, pt is unable to sit cross legged. Marine Meteorologist Goal (LTG) Maura reports a overall reduction in pain of the left hip pain with active hip flexion only at this time, pain goes away after active hip flexion 12/20/23: Pt reports she can sit cross-legged. 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 Her chief complaint she returned with was pain with active hip flexion. We have worked with Maura to calm down the irritation and have asked her to avoid activities that irritate her hip. She is feeling better now and she has been able to return to stairs without increased pain. She still feels discomfort with standing hip flexion past 90 or more. This pain goes away as soon as she is past the movement. She would benefit from a trial of trigger point release next visit. Today I worked both the psoas distal attachments as well as adductors and scar tissue mobilization Physical Therapy Plan Frequency and Duration Frequency of Treatment 1x/Week Duration of treatment (weeks) 8 Plan of Care Start Date 01/24/24 Plan of Care End Date 03/20/24 Therapeutic Interventions Therapeutic Interventions Home Exercise Program,Manual Therapy,Self-Care/Home Management,Soft Tissue Mobilization,Therapeutic Exercises Modalities Cold Pack/Ice Massage Next Visit Focus/Plan Next Note Type Treatment Note Next Visit Plan assess left hip flexor pain, trial of trigger point release next visit adductors, iliopsoas, quads Plan of Care Dates Plan of Care Start Date 01/24/24 Plan of Care End Date 03/20/24 Electronically Signed by: Norah Yu, PT 01/24/24 5220 If you are in agreement with this Plan of Care, please return a signed and dated copy. I have reviewed this Plan of Care and certify that the skilled therapy services above are required to meet the patient?s needs. Physician Signature Date Printed Name and Credentials Clinical Instructor Signature Printed Name and Credentials
--- NOTE | 2024-02-15 12:19 | PT.OTN ---
Current Diagnoses Pain in left hip (02/15/24) Stiffness of unspecified hip, not elsewhere classified (02/15/24) Muscle weakness (generalized) (02/15/24) Presence of left artificial hip joint (02/15/24) Physical Therapy Treatment Note PT-OP-A Visit Information Start: 05/31/23 11:25 Freq: Status: Active Protocol: Document 02/15/24 11:36 MB (Rec: 02/15/24 12:19 MB [id number]) Out-Patient Physical Therapy Visit Information Visit Information Visit Type Treatment Note Visit Start Time 11:36 Visit Stop Time 12:15 Visit Number 34 Number of NIGHT CUSTODIAN Visits 0 PT-OP-B Current Condition Start: 05/31/23 11:25 Freq: Status: Active Protocol: Document 05/31/23 13:05 [facility] (Rec: 05/31/23 13:48 [facility] [id number]) Current Condition History of Current Condition Onset Date 05/25/23 Current Complaints s/p left RONNY, decreased hip ROM, pain, decreased strength History of Current Condition May 24 anterior approach total hip replacement pt is using a fww with sitting down or standing up she can feel incisional pain that feels burning but after a minute after changing positions she wont feel it as strong. She rates it as a 6/ 10 zing with positional change Walking is a 3-4/10 but if she tries to take too big of a step she jay get pain She has been wearing thigh highs and has had mild swelling only she is using a fww and its primarily to not over do. She has 3 stairs to get in at her house with a railing and has been doing fine with these. She is 6 days s/p hip surgery today Treatment Goals Patient/Caregiver Goals Pt's goals are to improve hip ROM, decrease pain, increase strength and walking distance PT-OP-C Subjective Start: 05/31/23 11:25 Freq: Status: Active Protocol: Document 02/15/24 11:36 MB (Rec: 02/15/24 12:19 MB [id number]) OP-PT Subjective Patient Comments Patient Comments Maura states that she saw the surgeon and the left hip looks really good. The TFL has a lot of issues. She has ED. Cupping and myofascial work has been helpful. She had bruising from cupping. PT-OP-F Manual Assessment Start: 05/31/23 11:25 Freq: Status: Active Protocol: Document 05/31/23 13:00 [facility] (Rec: 06/01/23 13:05 [facility] [id number]) Manual Assessments Soft Tissue Assessment Soft Tissue Mobility Assessment myofascial tightness of the left quad and anterior hip, pt still has her bandage on for 2 weeks so fascial tissue will need further assessment once bandage is removed PT-OP-G Mobility & Gait Start: 05/31/23 11:25 Freq: Status: Active Protocol: Document 05/31/23 13:00 [facility] (Rec: 06/01/23 13:05 [facility] [id number]) OP Mobility Evaluation Bed Mobility Rolling ind Supine to and from Sit ind Transfers Sit to Stand IND and uses FWW Bed to Chair Transfers IND Car Transfers IND Floor Transfers not attempted OP Gait Assessment Gait Gait Assistance Required: Standby Assistance Distance (Feet) 50 Able to Maintain Weight Bearing Status Yes During Gait Assistive Devices Assistive Device Front Wheeled Walker Gait Deviations General Gait Pattern Decreased Stride Length,Step- to Gait Factors Limiting Gait Function Factors Limiting Gait Function Decreased Activity Tolerance, Decreased Strength,Limited Range of Motion,Pain PT-OP-K Range of Motion Start: 05/31/23 11:25 Freq: Status: Active Protocol: Document 05/31/23 13:00 [facility] (Rec: 06/01/23 13:05 [facility] [id number]) Hip Goniometric Range of Motion Hip Left Hip ROM WFL No Testing Position Supine Flexion w/Knee Flexed 90 Abduction 5 Comments pt has anterior hip precautions of no hip extension or ER. She has pain with hip abduction and knee flexion greater than 90 degrees. It is difficult for her to extend her hip flat onto the table and she needs a towel roll under her left knee especially at first Right Hip ROM WFL Yes Testing Position Supine Hip ROM Limitations Hip ROM Limitations Soft Tissue Tightness,Pain, Swelling Comments ANTERIOR HIP PRECAUTIONS PT-OP-M Strength Start: 05/31/23 11:25 Freq: Status: Active Protocol: Document 05/31/23 13:00 [facility] (Rec: 06/01/23 13:05 [facility] [id number]) Hip Strength Hip Manual Muscle Testing Left Comments not formaly tested due to s/p RONNY 6 days ago but decreased AROM of the left hip PT-OP-Q Treatments Start: 05/31/23 11:25 Freq: Status: Active Protocol: Document 02/15/24 11:36 MB (Rec: 02/15/24 12:19 MB [id number]) Manual Therapy Treatment Consent Patient gave verbal consent for manual Yes treatment Other Other Manual Treatments Pt supine: STM and positional release left rectus femoris, vastus lateralis, TFL, hip flexor, glute min and med, hip rotators, positional release thoracic spine vertebra. Anteriorly, right hip flexor is more tight than the left. STM right hip flexor and release paraspinals on the right as well. PT-OP-T Assessment and Plan Start: 05/31/23 11:25 Freq: Status: Active Protocol: Document 02/15/24 11:36 MB (Rec: 02/15/24 12:19 MB [id number]) Physical Therapy Assessment Goals 4 Impairment Myofascial tightness of the ITB [facility] Goal (LTG) overall ITB tightness has decreased and she is not experiencing the lateral ITB tenderness goal met LTG Duration 8 weeks 3 Impairment Pain with walking down a incline or stairs Short Term Goal (STG) Maura is educated on a HEP for improved hip strength good progress STG Duration 4 weeks progressing 07/12/23 Painter And Grader Cork Goal (LTG) Maura is independent with a HEP and demonstrates improvement with hip strength Stairs are starting to improve for Maura and she notes decreased pain with ascending stairs now LTG Duration 8 weeks 2 Impairment hip pain ranging from 2-6/10 depending on activity as well as distal ITB pain at the knee Short Term Goal (STG) Maura is educated on a home program to improve hip ROM 09/29/23 Goal met STG Duration 5 weeks progressing 06/28/23 [facility] Goal (LTG) Maura presents with improved hip ROM into hip flexion and abduction 09/29/23 goal met LTG Duration 8 weeks progressing 06/28/23 1 Impairment Decreased hip ROM most significantly into flexion and ER, pt is unable to sit cross legged. Painter And Grader Cork Goal (LTG) Maura reports a overall reduction in pain of the left hip pain with active hip flexion only at this time, pain goes away after active hip flexion 12/20/23: Pt reports she can sit cross-legged. LTG Duration 8 weeks Assessment Summary Assessment STM and positional release work today and pt was apprehensive about TrP work and so deferred today. She tolerates treatment well. Positional release pelvic floor included today and she also has increased myofascial tension left vastus lateralis. Physical Therapy Plan Frequency and Duration Frequency of Treatment 1x/Week Duration of treatment (weeks) 8 Plan of Care Start Date 01/24/24 Plan of Care End Date 03/20/24 Therapeutic Interventions Therapeutic Interventions Home Exercise Program,Manual Therapy,Self-Care/Home Management,Soft Tissue Mobilization,Therapeutic Exercises Modalities Cold Pack/Ice Massage Next Visit Focus/Plan Next Note Type Progress Note
--- NOTE | 2024-02-21 15:36 | PT.OTN ---
Current Diagnoses Pain in left hip (02/21/24) Stiffness of unspecified hip, not elsewhere classified (02/21/24) Muscle weakness (generalized) (02/21/24) Presence of left artificial hip joint (02/21/24) Physical Therapy Treatment Note PT-OP-A Visit Information Start: 05/31/23 11:25 Freq: Status: Active Protocol: Document 02/21/24 15:33 [facility] (Rec: 02/21/24 15:36 [facility] [id number]) Out-Patient Physical Therapy Visit Information Visit Information Visit Type Treatment Note Visit Start Time 13:45 Visit Stop Time 14:30 Visit Number 35 PT-OP-B Current Condition Start: 05/31/23 11:25 Freq: Status: Active Protocol: Document 05/31/23 13:05 [facility] (Rec: 05/31/23 13:48 [facility] [id number]) Current Condition History of Current Condition Onset Date 05/25/23 Current Complaints s/p left RONNY, decreased hip ROM, pain, decreased strength History of Current Condition May 24 anterior approach total hip replacement pt is using a fww with sitting down or standing up she can feel incisional pain that feels burning but after a minute after changing positions she wont feel it as strong. She rates it as a 6/ 10 zing with positional change Walking is a 3-4/10 but if she tries to take too big of a step she jay get pain She has been wearing thigh highs and has had mild swelling only she is using a fww and its primarily to not over do. She has 3 stairs to get in at her house with a railing and has been doing fine with these. She is 6 days s/p hip surgery today Treatment Goals Patient/Caregiver Goals Pt's goals are to improve hip ROM, decrease pain, increase strength and walking distance PT-OP-C Subjective Start: 05/31/23 11:25 Freq: Status: Active Protocol: Document 02/21/24 13:51 [facility] (Rec: 02/21/24 14:32 [facility] [id number]) OP-PT Subjective Patient Comments Patient Comments pt felt release of the gluteals helped last visit she is continuing to cup and she no longer feeling in and out of the car her lateral hip is the place is where the numbness and tenderness is She is doing better on stairs and the amount of discomfort is less than it was. She was able to hike from [facility] to [facility] and didn 't feel any pain. She is feeling that after today she will work on her own and come back if she feels she needs more people. PT-OP-F Manual Assessment Start: 05/31/23 11:25 Freq: Status: Active Protocol: Document 05/31/23 13:00 [facility] (Rec: 06/01/23 13:05 [facility] [id number]) Manual Assessments Soft Tissue Assessment Soft Tissue Mobility Assessment myofascial tightness of the left quad and anterior hip, pt still has her bandage on for 2 weeks so fascial tissue will need further assessment once bandage is removed PT-OP-G Mobility & Gait Start: 05/31/23 11:25 Freq: Status: Active Protocol: Document 05/31/23 13:00 [facility] (Rec: 06/01/23 13:05 [facility] [id number]) OP Mobility Evaluation Bed Mobility Rolling ind Supine to and from Sit ind Transfers Sit to Stand IND and uses FWW Bed to Chair Transfers IND Car Transfers IND Floor Transfers not attempted OP Gait Assessment Gait Gait Assistance Required: Standby Assistance Distance (Feet) 50 Able to Maintain Weight Bearing Status Yes During Gait Assistive Devices Assistive Device Front Wheeled Walker Gait Deviations General Gait Pattern Decreased Stride Length,Step- to Gait Factors Limiting Gait Function Factors Limiting Gait Function Decreased Activity Tolerance, Decreased Strength,Limited Range of Motion,Pain PT-OP-K Range of Motion Start: 05/31/23 11:25 Freq: Status: Active Protocol: Document 05/31/23 13:00 [facility] (Rec: 06/01/23 13:05 [facility] [id number]) Hip Goniometric Range of Motion Hip Left Hip ROM WFL No Testing Position Supine Flexion w/Knee Flexed 90 Abduction 5 Comments pt has anterior hip precautions of no hip extension or ER. She has pain with hip abduction and knee flexion greater than 90 degrees. It is difficult for her to extend her hip flat onto the table and she needs a towel roll under her left knee especially at first Right Hip ROM WFL Yes Testing Position Supine Hip ROM Limitations Hip ROM Limitations Soft Tissue Tightness,Pain, Swelling Comments ANTERIOR HIP PRECAUTIONS PT-OP-M Strength Start: 05/31/23 11:25 Freq: Status: Active Protocol: Document 05/31/23 13:00 [facility] (Rec: 06/01/23 13:05 [facility] [id number]) Hip Strength Hip Manual Muscle Testing Left Comments not formaly tested due to s/p RONNY 6 days ago but decreased AROM of the left hip PT-OP-Q Treatments Start: 05/31/23 11:25 Freq: Status: Active Protocol: Document 02/21/24 15:33 [facility] (Rec: 02/21/24 15:36 [facility] [id number]) Manual Therapy Treatment Soft Tissue Mobilization scar tissue mobilization over the abdominal scar and the iliopsoas musculature Body Location left hip: prox RF, TFL, Mobilization Type Instrument Assisted,Myofascial Release,Sustained Pressure Intensity/Depth Deep Body Position Supine Comments 1. STM: prox RF, TFL with edge cup 2. iliopsoas release- aproximation attachments L 2-4 <> distal prox femur ITB release left Body Location left hip, TFL Mobilization Type Myofascial Release Intensity/Depth Moderate Body Position Supine, Hooklying Comments positive feedback response PT-OP-T Assessment and Plan Start: 05/31/23 11:25 Freq: Status: Active Protocol: Document 02/21/24 15:33 [facility] (Rec: 02/21/24 15:36 [facility] [id number]) Physical Therapy Assessment Goals 4 Impairment Myofascial tightness of the ITB Custodial Goal (LTG) overall ITB tightness has decreased and she is not experiencing the lateral ITB tenderness goal met LTG Duration 8 weeks 3 Impairment Pain with walking down a incline or stairs Short Term Goal (STG) Maura is educated on a HEP for improved hip strength good progress STG Duration 4 weeks progressing 07/12/23 Custodial Goal (LTG) Maura is independent with a HEP and demonstrates improvement with hip strength Stairs are starting to improve for Maura and she notes decreased pain with ascending stairs now LTG Duration 8 weeks 2 Impairment hip pain ranging from 2-6/10 depending on activity as well as distal ITB pain at the knee Short Term Goal (STG) Maura is educated on a home program to improve hip ROM 09/29/23 Goal met STG Duration 5 weeks progressing 06/28/23 Custodial Goal (LTG) Maura presents with improved hip ROM into hip flexion and abduction 09/29/23 goal met LTG Duration 8 weeks progressing 06/28/23 1 Impairment Decreased hip ROM most significantly into flexion and ER, pt is unable to sit cross legged. Neuropathologist Goal (LTG) Maura reports a overall reduction in pain of the left hip pain with active hip flexion only at this time, pain goes away after active hip flexion 12/20/23: Pt reports she can sit cross-legged. LTG Duration 8 weeks Assessment Summary Assessment Maura feels she is doing better overall, she is using the close chain principals and this helps her hip. She is able to go up stairs now and she isn't feeling as tight. She still has discomfort with standing hip flexion but she does fees she is better and feels today can be her last visit. She will discharge today as she is headed out on a trip. If she feels she needs more PT in the future she will contact her MD Physical Therapy Plan Discharge Physical Therapy Discharge Comments pt doing better overall and working towards her goals. She feels comfortable working on her own at this time.
== END 2024-02-24 10:25 | disposition home or self-care (01) ==
LOC: PHYS 13:45
PROVIDERS: Family Provider Nurse Practitioner; PCP Nurse Practitioner; Referring Provider Student in an Organized Health Care Education/Training Program; Visit Provider Student in an Organized Health Care Education/Training Program
DX: M25.552 Pain in left hip (principal); Z96.642 Presence of left artificial hip joint; M25.659 Stiffness of unspecified hip, not elsewhere classified; M62.81 Muscle weakness (generalized)
CPT/HCPCS: 97110; 97112; 97116; 97140; 97161; 97535

== ENCOUNTER → 2024-05-04 14:44 | Outpatient (CLI) | payer OTHER, SELFPAY ==
[2024-05-05 16:08] LABS: Rubella Antibody IgG 50.5 IU/mL (>15)
[2024-05-07 12:39] LABS: Rubeola Measles IgG 16.5 AU/mL (Immune >16.4)
[2024-05-07 14:36] LABS: Mumps Virus IgG Antibody 45.8 AU/mL (Immune >10.9)
== END ==
LOC: LAB 14:46
PROVIDERS: PCP Nurse Practitioner; Referring Provider Nurse Practitioner; Visit Provider Nurse Practitioner
DX: Z01.84 Encounter for antibody response examination (principal)
CPT/HCPCS: 36415; 86735; 86762; 86765

== ENCOUNTER → 2024-06-28 08:10 | Outpatient (CLI) | payer OTHER, SELFPAY ==
[2024-06-28 08:39] LABS: Hemoglobin A1C% w Est Avg Glu 5.4 % (4.0-6.0)
[2024-06-28 08:44] LABS: Add Manual Diff / Slide Review NO; Basophils Absolute Auto 100 /uL (0-100); Basophils Percent Auto 1.3 % (0-2); Eosinophils Absolute Auto 200 /uL (0-450); Eosinophils Percent Auto 3.6 % (2-4); Hematocrit 41.3 % (36-46); Hemoglobin 13.4 g/dL (12.0-16.0); Lymphocytes Absolute Auto 1300 /uL (1100-4500); Lymphocytes Percent Auto 21.9 % (25-40); Mean Corpuscular HGB Conc 32.5 % (30-36); Mean Corpuscular Hemoglobin 29.2 PG (26-34); Mean Corpuscular Volume 89.7 fL (80-100); Monocytes Absolute Auto 400 /uL (0-900); Monocytes Percent Auto 7.1 % (3-14); Neutrophils Absolute Auto 3900 /uL (1500-7000); Neutrophils Percent Auto 66.1 % (50-75); Platelet Count 594 X10^3/uL (150-400); Red Blood Cell Count 4.61 X10^6/uL (4.0-5.2); Red Cell Distribution Width 13.5 % (11.6-14.8); White Blood Cell Count 5.9 X10^3/uL (4.5-11.0)
[2024-06-28 08:53] LABS: Alanine Aminotransferase 22 IU/L (<35); Albumin 4.5 g/dL (3.5-5.0); Albumin Globulin Ratio 2.1 (1.0-2.8); Alkaline Phosphatase 49 U/L (38-126); Aspartate Aminotransferase 24 IU/L (14-36); BUN Creatinine Ratio 23.3 (6-22); Bilirubin Total 0.7 mg/dL (0.2-1.3); Blood Urea Nitrogen 17 mg/dL (7-17); Calcium 9.3 mg/dL (8.4-10.2); Carbon Dioxide 30 mmol/L (22-32); Chloride 104 mmol/L (98-107); Cholesterol 143 mg/dL (140-199); Estimated Glomerular Filt Rate > 60 mL/min (>60); Globulin 2.1 g/dL (1.7-4.1); Glucose 108 mg/dL (70-99); HDL Cholesterol 51 mg/dL (40-60); HEMOLYSIS < 15 (0-50); LDL Cholesterol Calculated 63 mg/dL (<100); Potassium 4.3 mmol/L (3.4-5.1); Sodium 140 mmol/L (137-145); Total Protein 6.6 g/dL (6.3-8.2); Triglycerides 146 mg/dL (35-150)
[2024-06-28 09:09] LABS: Free T4, Direct Thyroxine 1.08 ng/dL (0.78-2.19)
[2024-06-28 09:22] LABS: Thyroid Stimulating Hormone 9.98 uIU/mL (0.47-4.68)
[2024-06-28 09:41] LABS: Hep C Virus Ab w/Reflex Quant NEGATIVE s/c (NEGATIVE)
== END ==
PROVIDERS: PCP Nurse Practitioner; Referring Provider Nurse Practitioner; Visit Provider Nurse Practitioner
DX: E78.2 Mixed hyperlipidemia (principal); R73.01 Impaired fasting glucose; Z11.59 Encounter for screening for other viral diseases; E03.9 Hypothyroidism, unspecified
CPT/HCPCS: 36415; 80053; 80061; 83036; 84439; 84443; 85025; 86803

== ENCOUNTER → 2024-09-11 14:21 | Outpatient (CLI) | payer OTHER, SELFPAY ==
[2024-09-11 15:50] LABS: Add Manual Diff / Slide Review NO; Hematocrit 37.3 % (36-46); Hemoglobin 12.6 g/dL (12.0-16.0); Lymphocytes Absolute Auto 1400 /uL (1100-4500); Mean Corpuscular HGB Conc 33.8 % (30-36); Mean Corpuscular Hemoglobin 30.8 PG (26-34); Mean Corpuscular Volume 91.1 fL (80-100); Platelet Count 582 X10^3/uL (150-400)
== END ==
PROVIDERS: PCP Nurse Practitioner; Referring Provider Nurse Practitioner; Visit Provider Nurse Practitioner
DX: D75.839 Thrombocytosis, unspecified (principal); E03.9 Hypothyroidism, unspecified
CPT/HCPCS: 36415; 85025

== ENCOUNTER → 2024-09-17 12:16 | Outpatient (CLI) | payer OTHER, SELFPAY ==
[2024-09-17 13:36] LABS: Thyroid Stimulating Hormone 4.85 uIU/mL (0.47-4.68)
== END ==
PROVIDERS: PCP Nurse Practitioner; Referring Provider Nurse Practitioner; Visit Provider Nurse Practitioner
DX: E03.9 Hypothyroidism, unspecified (principal); D75.839 Thrombocytosis, unspecified
CPT/HCPCS: 36415; 84443

== ENCOUNTER → 2024-11-09 14:46 | Outpatient (CLI) | payer OTHER, SELFPAY ==
[2024-11-09 17:17] LABS: Thyroid Stimulating Hormone 2.41 uIU/mL (0.47-4.68)
== END ==
PROVIDERS: Family Provider Nurse Practitioner; PCP Nurse Practitioner; Referring Provider Nurse Practitioner; Visit Provider Nurse Practitioner
DX: E03.9 Hypothyroidism, unspecified (principal)
CPT/HCPCS: 36415; 84443

== ENCOUNTER → 2025-01-02 12:48 | Outpatient (CLI) | payer OTHER, SELFPAY ==
[2025-01-02 13:14] LABS: Hematocrit 38.2 % (36-46); Hemoglobin 12.5 g/dL (12.0-16.0)
[2025-01-02 13:18] LABS: Appearance Urine UA CLEAR; Bilirubin Urine UA NEGATIVE (NEGATIVE); Color Urine UA YELLOW; Glucose Urine UA NEGATIVE (Negative); Ketones Urine UA NEGATIVE (NEGATIVE); Leukocyte Esterase Urine UA TRACE (NEGATIVE); Nitrite Urine UA NEGATIVE (Negative); Occult Blood Urine UA NEGATIVE (Negative); Protein Urine UA NEGATIVE (Negative); Specific Gravity Urine UA 1.010 (1.000-1.035); Urobilinogen Urine UA 0.2 E.U./dL (0.2)
[2025-01-02 13:19] LABS: pH Urine UA 5.5 (4.5-8.0)
[2025-01-02 13:20] LABS: Culture Indicated Urine Cult Not Indicated
[2025-01-02 13:39] LABS: Blood Urea Nitrogen 18 mg/dL (7-17); Calcium 9.2 mg/dL (8.4-10.2); Carbon Dioxide 29 mmol/L (22-32); Chloride 101 mmol/L (98-107); Estimated Glomerular Filt Rate > 60 mL/min (>60); Glucose 104 mg/dL (70-99); HEMOLYSIS < 15 (0-50); Potassium 4.6 mmol/L (3.4-5.1); Sodium 138 mmol/L (137-145)
[2025-01-02 14:49] LABS: Protein (Total) Urine Random 10 mg/dL (0-12); Protein Creatinine Ratio Urine 0.58 GRAM/24H
== END ==
PROVIDERS: Family Provider Nurse Practitioner; PCP Nurse Practitioner; Referring Provider Student in an Organized Health Care Education/Training Program; Visit Provider Student in an Organized Health Care Education/Training Program
DX: D70.9 Neutropenia, unspecified (principal); D63.1 Anemia in chronic kidney disease; N05.9 Unspecified nephritic syndrome with unspecified morphologic changes; N30.00 Acute cystitis without hematuria; R80.9 Proteinuria, unspecified
CPT/HCPCS: 36415; 80048; 81001; 82570; 84156; 85014; 85018